=== PATIENT | male | born 1960 ===

== ENCOUNTER 2021-12-22 11:27 | Outpatient (REF) | payer OTHER, SELFPAY ==
[2021-12-22 14:05] LABS: MANUAL DIFF FLAG NO
[2021-12-22 14:18] LABS: Basophils Percent Auto 0.5 % (0-2); Eosinophils Absolute Auto 0.1 X10*3/uL (0.0-0.4); Eosinophils Percent Auto 1.5 % (0-4); Hemoglobin 13.5 g/dl (14.0-18.0); Imm Gran Abs Auto 0.02 X10*3/uL (0.00-0.03); Imm Gran Pct Auto 0.3 % (0.0-0.4); Lymphocytes Percent Auto 37.7 % (20-40); Mean Corpuscular HGB Conc 32.9 g/dl (31.0-36.0); Mean Corpuscular Hemoglobin 30.6 pg (27.0-33.0); Mean Platelet Volume 10.1 fL (9.4-12.4); Monocytes Absolute Auto 0.7 X10*3/uL (0.1-1.2); Monocytes Percent Auto 8.2 % (2-11); Neutrophils Absolute Auto 4.1 x10*3/uL (2.0-8.3); Neutrophils Percent Auto 51.8 % (45-73); Platelet Count 276 X10*3/uL (160-400); Red Blood Count 4.41 X10*6/uL (4.60-5.80); Red Cell Distribution Width 12.3 % (11.0-16.0); White Blood Count 7.9 X10*3/uL (4.8-10.8)
[2021-12-22 14:34] LABS: Creatinine Urine 268.63 mg/dL; Microalbum/Creatinine Ratio Ur 14.1 ug/mg cr
[2021-12-22 14:44] LABS: Estimated Average Glucose 192 mg/dL; Hemoglobin A1c % 8.3 %
[2021-12-22 14:48] LABS: Alanine Aminotransferase 21 U/L (0-40); Albumin Level 4.2 g/dL (3.5-5.0); Alkaline Phosphatase 116 U/L (39-117); Anion Gap 16 (12-20); Aspartate Amino Transferase 19 U/L (5-37); Bilirubin Total 0.3 mg/dL (0.0-1.0); Blood Urea Nitrogen 23 mg/dL (9-16); Calcium 9.4 mg/dL (8.4-10.2); Carbon Dioxide 21 mmol/L (22-29); Chloride 106 mmol/L (96-108); Cholesterol 112 mg/dL; Estimated Glomerular Filt Rate 43; Glucose Fasting 141 mg/dL (60-99); HDL Cholesterol 41 mg/dL; LDL Cholesterol Calculated 55 mg/dl; Potassium 4.8 mmol/L (3.3-5.1); Sodium 138 mmol/L (135-145); Triglycerides 82 mg/dL
[2021-12-22 14:56] LABS: TSH reflex Free T4 1.86 uIU/mL (0.32-4.0)
[2021-12-22 15:40] LABS: Vitamin B12 376 pg/mL (200-900)
[2021-12-27 15:36] LABS: Vitamin D 25-OH, D2 28 ng/mL; Vitamin D 25-OH, D3 39 ng/mL; Vitamin D 25-OH, Total 67 ng/mL (30-100)
== END 2021-12-22 11:28 | disposition home or self-care (01) ==
LOC: HO.HMGCLDS 11:27
PROVIDERS: PCP Internal Medicine; Visit Provider Internal Medicine
DX: E10.65 Type 1 diabetes mellitus with hyperglycemia (principal); E10.21 Type 1 diabetes mellitus with diabetic nephropathy; E10.42 Type 1 diabetes mellitus with diabetic polyneuropathy; E78.9 Disorder of lipoprotein metabolism, unspecified; E66.09 Other obesity due to excess calories; K21.9 Gastro-esophageal reflux disease without esophagitis; H40.9 Unspecified glaucoma; H26.9 Unspecified cataract; R20.2 Paresthesia of skin; M54.16 Radiculopathy, lumbar region; Z76.89 Persons encountering health services in other specified circumstances
CPT/HCPCS: 36415; 80053; 80061; 82043; 82306; 82607; 83036; 84443; 85025

== ENCOUNTER 2022-02-25 14:07 | Outpatient (REF) | payer OTHER, SELFPAY ==
--- NOTE | 2022-02-25 10:00 | EMG_ITS ---
Please see scanned EMG / Nerve Conduction Report. MTDD
== END 2022-02-25 14:08 | disposition home or self-care (01) ==
LOC: HO.NEURO 14:07
PROVIDERS: PCP Internal Medicine; Visit Provider Internal Medicine
DX: R20.2 Paresthesia of skin (principal)
CPT/HCPCS: 95886; 95913

== ENCOUNTER 2022-05-25 09:05 | Outpatient (REF) | payer OTHER, SELFPAY ==
[2022-05-25 11:35] LABS: MANUAL DIFF FLAG NO
[2022-05-25 12:00] LABS: Basophils Absolute Auto 0.1 X10*3/uL (0.0-0.2); Basophils Percent Auto 0.6 % (0-2); Eosinophils Absolute Auto 0.1 X10*3/uL (0.0-0.4); Eosinophils Percent Auto 1.5 % (0-4); Hemoglobin 13.4 g/dl (14.0-18.0); Imm Gran Abs Auto 0.02 X10*3/uL (0.00-0.03); Imm Gran Pct Auto 0.2 % (0.0-0.4); Lymphocytes Absolute Auto 3.2 X10*3/uL (1.2-4.9); Lymphocytes Percent Auto 39.3 % (20-40); Mean Corpuscular HGB Conc 33.5 g/dl (31.0-36.0); Mean Corpuscular Hemoglobin 30.4 pg (27.0-33.0); Mean Corpuscular Volume 90.7 fL (80.0-98.0); Mean Platelet Volume 10.5 fL (9.4-12.4); Monocytes Absolute Auto 0.7 X10*3/uL (0.1-1.2); Monocytes Percent Auto 8.6 % (2-11); Neutrophils Percent Auto 49.8 % (45-73); Platelet Count 257 X10*3/uL (160-400); Red Blood Count 4.41 X10*6/uL (4.60-5.80); Red Cell Distribution Width 12.7 % (11.0-16.0); White Blood Count 8.1 X10*3/uL (4.8-10.8)
[2022-05-25 12:08] LABS: Estimated Average Glucose 203 mg/dL; Hemoglobin A1c % 8.7 %
[2022-05-25 12:09] LABS: Alanine Aminotransferase 28 U/L (0-40); Albumin Level 3.7 g/dL (3.5-5.0); Alkaline Phosphatase 122 U/L (39-117); Anion Gap 11 (12-20); Aspartate Amino Transferase 22 U/L (5-37); Bilirubin Total 0.3 mg/dL (0.0-1.0); Blood Urea Nitrogen 22 mg/dL (9-16); Calcium 8.4 mg/dL (8.4-10.2); Carbon Dioxide 22 mmol/L (22-29); Chloride 110 mmol/L (96-108); Cholesterol 85 mg/dL; Estimated Glomerular Filt Rate 38; Glucose Fasting 183 mg/dL (60-99); HDL Cholesterol 30 mg/dL; LDL Cholesterol Calculated 42 mg/dl; Potassium 4.2 mmol/L (3.3-5.1); Sodium 139 mmol/L (135-145); Total Protein 6.2 g/dL (6.5-8.0); Triglycerides 65 mg/dL
[2022-05-25 12:28] LABS: TSH reflex Free T4 1.81 uIU/mL (0.32-4.0)
[2022-05-25 15:40] LABS: Creatinine Urine 312.85 mg/dL; Microalbum/Creatinine Ratio Ur 7.3 ug/mg cr
== END 2022-05-25 09:06 | disposition home or self-care (01) ==
LOC: HO.HMGCLDS 09:05
PROVIDERS: PCP Internal Medicine; Visit Provider Internal Medicine
DX: E11.21 Type 2 diabetes mellitus with diabetic nephropathy (principal); M54.16 Radiculopathy, lumbar region; E78.9 Disorder of lipoprotein metabolism, unspecified; E11.40 Type 2 diabetes mellitus with diabetic neuropathy, unspecified
CPT/HCPCS: 36415; 80053; 80061; 82043; 83036; 84443; 85025

== ENCOUNTER 2022-06-05 08:50 | Outpatient (REF) | payer OTHER, SELFPAY ==
--- NOTE | ~2022-06-05 | XR_ITS ---
EXAMINATION: XR LUMBOSACRAL SPINE CLINICAL INFORMATION: Reason for Exam M47.816 - Spondylosis without myelopathy or radiculopathy, lumbar region COMPARISON: None TECHNIQUE: 7 views of the lumbar spine FINDINGS: 5 nonrib-bearing lumbar-type vertebral bodies. Vertebral body heights are maintained. Alignment is maintained. No pars defects. No instability on flexion extension views. Minimal degenerative change with small anterior disc osteophyte complexes at L4-L5 and L5-S1. Disc space heights are maintained. Paravertebral soft tissues are unremarkable. XR/XR lumbar spine 6V w bending IMPRESSION: Minimal degenerative disc disease as detailed above.
== END 2022-06-05 08:51 | disposition home or self-care (01) ==
LOC: HO.XRAY 08:50
PROVIDERS: PCP Internal Medicine; Visit Provider Nurse Practitioner Family
DX: M47.816 Spondylosis without myelopathy or radiculopathy, lumbar region (principal); E11.40 Type 2 diabetes mellitus with diabetic neuropathy, unspecified; M25.511 Pain in right shoulder
CPT/HCPCS: 72114; 99202

== ENCOUNTER → 2022-07-16 11:45 | Outpatient (BNVA) | payer OTHER, SELFPAY | PROVIDERS: PCP Internal Medicine; Visit Provider Nurse Practitioner Family | DX: M54.16 Radiculopathy, lumbar region (principal); M47.816 Spondylosis without myelopathy or radiculopathy, lumbar region; E11.40 Type 2 diabetes mellitus with diabetic neuropathy, unspecified; E66.9 Obesity, unspecified; Z68.39 Body mass index [BMI] 39.0-39.9, adult | CPT/HCPCS: 99212 ==

== ENCOUNTER 2022-09-01 06:05 | Outpatient (REF) | payer OTHER, SELFPAY ==
--- NOTE | ~2022-09-01 | FL_ITS ---
EXAMINATION: XR FLUOROSCOPY WITH IMAGES CLINICAL INFORMATION: Spondylosis without myelopathy or radiculopathy, lumbar region. COMPARISON: None available. TECHNIQUE: Fluoroscopy Supervised By: Dr. Wil Valderrama. Fluoroscopy Time: 0.7 minutes. Cumulative Dose: 21.0 mGy. DAP: 5.73 Gycm2. Images: 7. FINDINGS: Images demonstrate needle placement and contrast injection adjacent to the bilateral lateral L3, L4 and L5 vertebrae FL/FL guidance in treatment room IMPRESSION: Fluoroscopy guidance for pain management procedure.
== END 2022-09-01 06:06 | disposition home or self-care (01) ==
LOC: CF 06:05
PROVIDERS: Visit Provider Anesthesiology
DX: M47.816 Spondylosis without myelopathy or radiculopathy, lumbar region (principal); E66.09 Other obesity due to excess calories
CPT/HCPCS: 64493; 64494

== ENCOUNTER 2022-09-08 11:15 | Outpatient (REF) | payer OTHER, SELFPAY ==
[2022-09-08 13:05] LABS: Estimated Average Glucose 203 mg/dL; Hemoglobin A1c % 8.7 %
[2022-09-08 13:59] LABS: Alanine Aminotransferase 26 U/L (0-40); Albumin Level 3.9 g/dL (3.5-5.0); Alkaline Phosphatase 128 U/L (39-117); Anion Gap 11 (12-20); Aspartate Amino Transferase 23 U/L (5-37); Bilirubin Total 0.3 mg/dL (0.0-1.0); Blood Urea Nitrogen 19 mg/dL (9-16); Calcium 9.5 mg/dL (8.4-10.2); Carbon Dioxide 23 mmol/L (22-29); Chloride 107 mmol/L (96-108); Estimated Glomerular Filt Rate 42; Glucose Random 136 mg/dL (60-115); Potassium 4.4 mmol/L (3.3-5.1); Sodium 137 mmol/L (135-145); Total Protein 7.2 g/dL (6.5-8.0)
[2022-09-08 14:16] LABS: TSH reflex Free T4 2.52 uIU/mL (0.32-4.0)
[2022-09-10 08:09] LABS: LDL Cholesterol Direct 37 mg/dL (<100)
== END 2022-09-08 11:16 | disposition home or self-care (01) ==
LOC: HO.LAB 11:15
PROVIDERS: PCP Internal Medicine; Visit Provider Nurse Practitioner Family
DX: M47.816 Spondylosis without myelopathy or radiculopathy, lumbar region (principal); M54.16 Radiculopathy, lumbar region; M53.3 Sacrococcygeal disorders, not elsewhere classified; E66.9 Obesity, unspecified; E78.9 Disorder of lipoprotein metabolism, unspecified; E11.40 Type 2 diabetes mellitus with diabetic neuropathy, unspecified; E11.21 Type 2 diabetes mellitus with diabetic nephropathy
CPT/HCPCS: 36415; 80053; 83036; 83721; 84443; 99212

== ENCOUNTER 2022-09-29 07:05 | Outpatient (REF) | payer OTHER, SELFPAY ==
--- NOTE | ~2022-09-29 | FL_ITS ---
EXAMINATION: XR FLUOROSCOPY WITH IMAGES CLINICAL INFORMATION: Sacral coccygeal disorder COMPARISON: None available. TECHNIQUE: Fluoroscopy Supervised By: Dr. Wil Valderrama. Fluoroscopy Time: 0.1 minutes. Cumulative Dose: 7.75 mGy. DAP: 0.134 Gycm2. Images: 1. FINDINGS: There is a needle and some contrast superimposed over the region of the SI joint FL/FL guidance in treatment room IMPRESSION: Imaging assistance provided during a fluoroscopic procedure
== END 2022-09-29 07:06 | disposition home or self-care (01) ==
LOC: CF 07:05
PROVIDERS: PCP Internal Medicine; Visit Provider Anesthesiology
DX: M47.816 Spondylosis without myelopathy or radiculopathy, lumbar region (principal); M53.3 Sacrococcygeal disorders, not elsewhere classified; M54.16 Radiculopathy, lumbar region; E66.9 Obesity, unspecified
CPT/HCPCS: 27096

== ENCOUNTER 2022-09-29 09:19 | Outpatient (AMB) | payer OTHER, SELFPAY ==
--- NOTE | 2022-09-29 09:30 | MHC.OFFVIS ---
Intake Vital Signs 09/29/22 09:31 09/29/22 11:11 Height 5 ft 7 in 5 ft 7 in Weight 245 lb 245 lb BMI 38.4 38.4 BP 112/66 100/88 Blood Pressure Location Rt brachial Rt brachial Position Sitting Sitting Respiration 19 17 Pulse 85 82 Pulse Source Pulse Oximeter Pulse Oximeter Pulse Oximetry (%) 99 98 Oxygen Delivery Method Room Air Room Air Comment Pre-op Post-op Intake Visit Reasons: LEFT DIAGNOSTIC SIJ INJECTION Allergies No Known Allergies Allergy (Verified 09/29/22 09:30) PFSH Surgical History History of shoulder surgery History of surgery on lower extremity Hx of cataract surgery Family History Father Diabetes Hypertension Cancer Mother Hypertension Diabetes Social History Housing: House Patient Tobacco Use Status: Never used Tobacco e-Cigarette/Vaping Use: Never Used Current occupational status: disabled Cognitive needs: No Hearing needs: No Vision needs: Yes Physical Exam Vital Signs: Last Vital Signs Pulse 82 09/29/22 11:11 Resp 17 09/29/22 11:11 BP 100/88 09/29/22 11:11 Pulse Ox 98 09/29/22 11:11 Oxygen Delivery Method Room Air 09/29/22 11:11 BMI result Body Mass Index 38.4 Results Reviewed Results Reviewed: 09/29/22 10:03 Lidocaine HCl 2 % MPF [Xylocaine 2 % MPF] 5 ml .R[facility]TE .[facility] Assessment & Plan Assessment & Plan (1) Lumbar spondylosis: Code(s): M47.816 - Spondylosis without myelopathy or radiculopathy, lumbar region (2) Left lumbar radiculitis: Code(s): M54.16 - Radiculopathy, lumbar region (3) Sacroiliac joint pain: Code(s): M53.3 - Sacrococcygeal disorders, not elsewhere classified Plan: Left diagnostic sacroiliac joint injection. Informed consent was explained thoroughly to the patient. All questions about benefits and risks for the procedure were answered. Patient came to the operating room and was positioned prone on the operating table with the pillow under the pelvis. Time out was performed delineating name and of the patient, allergies and the nature of the procedure. The lower back and buttocks of the patient were prepped with ChloraPrep prepped and draped with sterile utility towels. C-arm was brought over the operating field and sq picture of patient's pelvis was demonstrated on the screen. For the left joint tilting C-arm contralateral to the site of the joint the most posterior portion of the joints was superimposed with anterior silhouette of the joint. Skin was injected in the projection of the joint slightly medial to the location of the joint with 25 gauge 1/2 inch needle using local lidocaine 2% .After that 22 gauge 3 and 1/2 inch needle was driven to the right joint in tunnel vision fashion. When needle entered the joint capsule injection of the contrast was performed demonstrating intra-articular and minimally periarticular spread of the contrast. After that 4 cc. of ropivacaine 0.5% was injected into the joint. Upon completion of the injections the needle was removed Sterile dressing was applied. Upon completion of the injection patient was taken outside of the operating room to the recovery room where recovered uneventfully. (4) Obesity (BMI 30-39.9): Code(s): E66.9 - Obesity, unspecified Plan 1. Diagnostic Lumbar MBBs provided patient with 85% pain relief for 24 hours. Reviewed short and longer term treatments for lower back pain, including therapeutic injections, Sprint PNS trial or lumbar medial branch RFA. Pending A1C blood work, previous test was 8.7. Patient would like to address SIJ pain prior to further interventional treatments for axial back pain. 2. Schedule for Left Diagnostic SIJ injection with local and fluoroscopy. 3. Continue daily physical activity, HEP, adequate hydration, weight loss, good posture, sleep hygiene and diabetes control. All questions and concerns have been answered and patient agreed with the plan. Follow up after injections and sooner if needed. Anticoagulation: Patient not on anticoagulant Justification for interventional therapy: ? Patient with average pain > 6/10 ? Patient has exhausted conservative therapy, NSAIDs, physical therapy ? Patient continuing home exercise program The risks, consequences, alternatives, and benefits of various treatment options were discussed with the patient in great detail, including conservative management, injections and procedures. Orders: Orders FL guidance in treatment room Today M53.3 - Sacrococcygeal disorders, not elsewhere classified Coding Level of Care Code Procedure Only Diagnoses Lumbar spondylosis M47.816 Left lumbar radiculitis M54.16 Sacroiliac joint pain M53.3 Obesity (BMI 30-39.9) E66.9
[2022-09-29 09:31] VITALS: BP 112/66; PULSE 85; RESP 19; O2SAT 99; BMI 38.4
[2022-09-29 11:11] VITALS: BP 100/88; PULSE 82; RESP 17; O2SAT 98; BMI 38.4
== END 2022-09-29 10:54 | disposition home or self-care (01) ==
LOC: HO.PMCPRC 09:19
PROVIDERS: PCP Internal Medicine; Visit Provider Anesthesiology
DX: M53.3 Sacrococcygeal disorders, not elsewhere classified (principal)
CPT/HCPCS: 27096

== ENCOUNTER 2022-10-02 12:01 | Outpatient (AMB) | payer OTHER, SELFPAY ==
[2022-10-02 12:08] VITALS: BP 118/58; PULSE 85; O2SAT 97; BMI 38.7
--- NOTE | 2022-10-02 12:08 | A.OFFPC_ITS ---
Vital Signs 10/02/22 12:08 Height 5 ft 7 in Weight 247 lb 6 oz BMI 38.7 BP 118/58 L Blood Pressure Location Rt brachial Position Sitting Pulse 85 Pulse Source Pulse Oximeter Pulse Oximetry (%) 97 Oxygen Delivery Method Room Air Intake Visit Reasons: 3 month follow up Allergies No Known Allergies Allergy (Verified 09/29/22 09:30) Medication List - Last Reconciled 10/02/22 by Shawn Johnson MD amlodipine-benazepril 10-20 mg 1 cap PO DAILY aspirin (Adult Low Dose Aspirin) 81 mg PO DAILY atorvastatin 10 mg PO BEDTIME blood sugar diagnostic (FreeStyle Lite Strips) USE TO CHECK BLOOD SUGAR 4 TIMES DAILY: FASTING AND BEFORE MEALS cholecalciferol (vitamin D3) 25 mcg PO DAILY 90 days cholecalciferol (vitamin D3) 1,000 units PO DAILY 90 days dorzolamide-timolol 22.3-6.8 mg/mL 1 drp ophthalmic (eye) BID dulaglutide (Trulicity) 4.5 mg (0.5 mL) subcut QWEEK 90 days flash glucose sensor (FreeStyle Ye 2 Sensor kit) Use with sensor to monitor blood sugar TID and as needed for s/s hypo/hyperglycemia FreeStyle Ye 2 [place] (flash glucose scanning reader) Use with sensor to monitor blood sugar TID and as needed for s/s hypo/hyperglycemia NS FreeStyle Lite Meter (blood-glucose meter) Use to check blood sugar 4 times daily, fasting and AC NS gabapentin 300 mg PO TID PRN insulin aspart U-100 (Novolog FlexPen U-100 Insulin aspart) 15 units (0.15 mL) subcut TID 90 days lamotrigine 100 mg PO BID lancets (FreeStyle Lancets) Use to check blood sugar QID, fasting and AC Lantus Solostar U-100 Insulin (insulin glargine) subcutaneously 2 times a day; 50 units at night and 20 units in the morning 90 days NS levothyroxine 50 mcg PO DAILY lidocaine 5% leave on most painful area for up to 12 hrs topically daily; 30 days metformin ER 500 mg PO BID pantoprazole 20 mg PO DAILY Tobacco use date assessed: 10/02/22 Dental Screening Dental Screen Date: 10/02/22 Did you have a dental visit in the last 12 months?: No Did you have a dental problem in the last 6 months where you did not have access to dental care?: No Was dental information given to patient?: No HPI 3 month follow up HPI Details Patient is 62-year-old gentleman came in today for his regular follow- up appointment Patient is now seeing [facility] Patient says that they are not managing his blood pressure. His blood pressure has been running low lately I have reduce his medication to only amlodipine 10 mg and removed benzopril He is to give me a call in 2 weeks to update me on his blood pressure Insulin-dependent diabetes: Hemoglobin A1c is 8.7 labs were done 11 of September this year, he is taking Lantus to 54 the morning and 20 at night List pro 3 times a day after checking the sugar follow the sliding scale Continue Trulicity Continue to see [facility] for right shoulder pain Continue gabapentin 300 mg that is through PCP office Continue atorvastatin 10 mg for lipid control Continue levothyroxine 50 mcg for hypothyroidism And pantoprazole 20 mg for chronic GERD, symptoms stable. BMI is elevated need to lose weight Follow-up 3 months [facility] Surgical History History of shoulder surgery History of surgery on lower extremity Hx of cataract surgery Family History Father Diabetes Hypertension Cancer Mother Hypertension Diabetes Social History Housing: House Patient Tobacco Use Status: Never used Tobacco e-Cigarette/Vaping Use: Never Used Current occupational status: disabled Cognitive needs: No Hearing needs: No Vision needs: Yes Questionnaire AUDIT C Alcohol Use Questionnaire (AUDIT-C) 1. How often do you have a drink containing alcohol?: Never 3. How often do you have six or more drinks on one occasion?: Never Total Score: 0 Score Reviewed/Action Taken: Yes Review of Systems Const Denies chills and Denies fever(s) ENT Denies epistaxis and Denies nasal discharge Card Denies chest pain Resp Denies chest congestion, Denies cough and Denies hemoptysis GI Denies diarrhea and Denies nausea Skin/Breast Denies rash Neuro Reports no additional complaints Psych Reports no additional complaints Endo Reports no additional complaints Physical exam (Primary Care) Vital Signs: Last Vital Signs Pulse 85 10/02/22 12:08 BP 118/58 L 10/02/22 12:08 Pulse Ox 97 10/02/22 12:08 Oxygen Delivery Method Room Air 10/02/22 12:08 BMI result Body Mass Index 38.7 Tobacco/Smoking Status: Tobacco use Status Tobacco use date assessed 10/02/22 10/02/22 12:13 Patient Tobacco Use Status Never used Tobacco 10/02/22 12:12 e-Cigarette/Vaping Use Never Used 10/02/22 12:12 Const General: cooperative, comfortable and no acute distress Orientation/consciousness: patient oriented x3 HENMT Head: Yes normocephalic Eyes General: appearance normal, both eyes and all related structures Neck Neck: Yes supple Resp Effort & Inspection: normal respiratory effort, no cough and no stridor Cardio Rhythm: regular rhythm Heart sounds: S1 normal heart sound present and S2 normal heart sound present Skin General skin exam: turgor normal Neuro General: patient oriented x3, tone normal and moves all extremities Extrem Right lower extremity: no edema Left lower extremity: no edema Assessment and Plan Assessment & Plan (1) Insulin dependent type 1 diabetes mellitus: Code(s): E10.9 - Type 1 diabetes mellitus without complications (2) Diabetic nephropathy: Code(s): E11.21 - Type 2 diabetes mellitus with diabetic nephropathy (3) Diabetic neuropathy: Code(s): E11.40 - Type 2 diabetes mellitus with diabetic neuropathy, unspecified (4) Left lumbar radiculitis: Code(s): M54.16 - Radiculopathy, lumbar region (5) Lipid disorder: Code(s): E78.9 - Disorder of lipoprotein metabolism, unspecified (6) Obesity (BMI 30-39.9): Code(s): E66.9 - Obesity, unspecified Plan Patient is 62-year-old gentleman came in today for his regular follow-up appointment Patient is now seeing [facility] Patient says that they are not managing his blood pressure. His blood pressure has been running low lately I have reduce his medication to only amlodipine 10 mg and removed benzopril He is to give me a call in 2 weeks to update me on his blood pressure Insulin-dependent diabetes: Hemoglobin A1c is 8.7 labs were done 11 of September this year, he is taking Lantus to 54 the morning and 20 at night List pro 3 times a day after checking the sugar follow the sliding scale Continue Trulicity Continue to see [facility] for right shoulder pain Continue gabapentin 300 mg that is through PCP office Continue atorvastatin 10 mg for lipid control Continue levothyroxine 50 mcg for hypothyroidism And pantoprazole 20 mg for chronic GERD, symptoms stable. BMI is elevated need to lose weight Follow-up 3 months Medications: New amlodipine 10 mg PO DAILY 90 tabs 0RF Discontinued amlodipine-benazepril 10-20 mg Discontinued Reason: Doctor's Order 1 cap PO DAILY 90 caps 0RF metformin ER Discontinued Reason: Doctor's Order 500 mg PO BID 90 tabs 0RF Coding Level of Care Code Est Pt Level 4 (96307) Diagnoses Insulin dependent type 1 diabetes mellitus E10.9 Diabetic nephropathy E11.21 Diabetic neuropathy E11.40 Left lumbar radiculitis M54.16 Lipid disorder E78.9 Obesity (BMI 30-39.9) E66.9
== END 2022-10-02 12:33 | disposition home or self-care (01) ==
PROVIDERS: Visit Provider Internal Medicine
DX: E11.21 Type 2 diabetes mellitus with diabetic nephropathy (principal); E11.40 Type 2 diabetes mellitus with diabetic neuropathy, unspecified; M54.16 Radiculopathy, lumbar region; E78.9 Disorder of lipoprotein metabolism, unspecified; E66.9 Obesity, unspecified
CPT/HCPCS: 99214

== ENCOUNTER 2022-10-05 09:21 | Outpatient (AMB) | payer OTHER, SELFPAY ==
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
[2022-10-05 09:35] VITALS: BP 112/68; PULSE 88; RESP 18; O2SAT 98; BMI 38.4
== END 2022-10-05 10:06 | disposition home or self-care (01) ==
PROVIDERS: PCP Internal Medicine; Visit Provider Anesthesiology
DX: M53.3 Sacrococcygeal disorders, not elsewhere classified (principal); M47.816 Spondylosis without myelopathy or radiculopathy, lumbar region; M54.16 Radiculopathy, lumbar region; E66.9 Obesity, unspecified
CPT/HCPCS: 27096; 99214

== ENCOUNTER → 2022-10-05 09:21 | Outpatient (BNVA) | payer OTHER, SELFPAY | PROVIDERS: PCP Internal Medicine; Visit Provider Anesthesiology | DX: M47.26 Other spondylosis with radiculopathy, lumbar region (principal); M53.3 Sacrococcygeal disorders, not elsewhere classified; E11.40 Type 2 diabetes mellitus with diabetic neuropathy, unspecified; E66.9 Obesity, unspecified; Z68.38 Body mass index [BMI] 38.0-38.9, adult | CPT/HCPCS: 99212 ==

== ENCOUNTER 2022-11-04 09:51 | Outpatient (REF) | payer OTHER, SELFPAY ==
--- NOTE | ~2022-11-04 | XR_ITS ---
EXAMINATION: XR PELVIS CLINICAL INFORMATION: Sacrococcygeal pain COMPARISON: None available. TECHNIQUE: Frontal and lateral views of the pelvis and sacrococcygeal bones were acquired. FINDINGS: No fracture. Hip joint spaces are maintained. Alignment is anatomic. Sacroiliac joints and pubic symphysis are normal. No abnormal soft tissue calcifications. XR/XR pelvis 1-2V IMPRESSION: Unremarkable plain radiographs of the pelvis including the sacrum and coccyx.
== END 2022-11-04 09:52 | disposition home or self-care (01) ==
LOC: HO.XRAY 09:51
PROVIDERS: PCP Internal Medicine; Visit Provider Anesthesiology
DX: M53.3 Sacrococcygeal disorders, not elsewhere classified (principal)
CPT/HCPCS: 72170

== ENCOUNTER 2022-11-06 08:13 | Day surgery (SDC) | payer OTHER, SELFPAY ==
[2022-11-04 07:36] VITALS: BMI 38.4
--- NOTE | 2022-11-05 09:07 | HO.ANESPROP2 ---
HPI - Anesthesia Eval Consult details Narrative: 62yo M for Left Sacroiliac Joint Steroid Injection PMFSH Active Problems Active Problems: All Active Problems (Updated 11/04/22 @ 07:32 by Alejandra Lopez RN) Diabetes (Acute) Establishing care with new doctor, encounter for (Acute) Insulin dependent type 1 diabetes mellitus (Acute) Diabetic nephropathy (Acute) Diabetic neuropathy (Acute) Left lumbar radiculitis (Acute) Lipid disorder (Acute) Chronic GERD (Acute) Obesity due to excess calories (Acute) Glaucoma (Acute) Cataract (Acute) Paresthesia of both feet (Acute) Hospital discharge follow-up (Acute) Pre-op evaluation (Acute) Diabetic neuropathy (Acute) Lumbar radiculopathy (Acute) Lumbar spondylosis (Acute) Right shoulder pain (Acute) Obesity (BMI 30-39.9) (Acute) Sacroiliac joint pain (Acute) Sacroiliac joint dysfunction of left side (Acute) Past Medical History Medical History CKD (chronic kidney disease) Diabetes HTN (hypertension) Family History Family History Father Diabetes Hypertension Cancer Mother Hypertension Diabetes Surgical History Surgical History History of shoulder surgery History of surgery on lower extremity Hx of cataract surgery Social History Social History Housing: House Patient Tobacco Use Status: Never used Tobacco e-Cigarette/Vaping Use: Never Used Current occupational status: disabled Cognitive needs: No Hearing needs: No Vision needs: Yes Meds Allergies Allergy/AdvReac Type Severity Reaction Status Date / Time No Known Allergies Allergy Verified 10/05/22 09:35 Home Medications Medication Instructions Recorded Confirmed Last Taken Type aspirin 81 mg tablet,delayed 81 mg PO DAILY 01/07/22 10/02/22 Unknown History release (Adult Low Dose Aspirin) Exam Exam Date and Time: November 05, 2022 0907 Height,Weight and Vital Signs: Height 5 ft 7 in Weight 111.13 kg Pertinent Lab Results Pertinent Lab Results: Laboratory Tests 05/25/22 09/08/22 09:11 12:19 WBC 8.1 Hgb 13.4 L Hct 40.0 L Plt Count 257 Sodium 137 Potassium 4.4 Chloride 107 Carbon Dioxide 23 BUN 19 H Creatinine 1.67 H Assessment and Plan Assessment Anesthesia Assessment: Chart Reviewed
--- NOTE | ~2022-11-06 | FL_ITS ---
EXAMINATION: XR FLUOROSCOPY WITH IMAGES CLINICAL INFORMATION: Left SI joint injection. COMPARISON: None available. TECHNIQUE: Fluoroscopy Supervised By: Dr. Wil Valderrama. Fluoroscopy Time: 0.1 minute. Cumulative Dose: 11.0 mGy. DAP: 3.00 Gycm2. Images: 1. FINDINGS: Images demonstrate needle placement and contrast injection over the left sacroiliac joint. FL/FL guidance in OR IMPRESSION: Fluoroscopic guidance for left sacroiliac joint injection.
[2022-11-06 08:29] LABS: Glucose, Whole Blood 216 mg/dL (60-115)
[2022-11-06 08:40] VITALS: BP 109/66; PULSE 81; RESP 16; TEMP 36.2; O2SAT 96
--- NOTE | 2022-11-06 08:43 | MHC.SHP ---
Pre-Procedural Eval Section A Date of Service: 11/06/22 The patient is an INPATIENT: No Changes since office visit: Yes Patient answered all questions The History & Physical has been completed within 30 days and I have reviewed it.: No Section B Chief Complaint: Sacrococcygeal disorders, not elsewhere classifie Details of Present Illness: as above Relevant Family History (Specify if Yes): No Relevant Social History: None Present Medications: None Medical History: No relevant PMH History of Previous Operations: No relevant previous surgery Allergies: Allergies Allergy/AdvReac Type Severity Reaction Status Date / Time No Known Allergies Allergy Verified 10/05/22 09:35 Review of Systems Sugical H&P ROS: Negative: Cardiovascular, Respiratory, Neurological, Psychiatric, Hem-Onc, Allergic/Immunologic, Gastrointestinal, Genitourinary, Musculoskeletal, Integumentary, Endocrine and Eyes/Ears/Nose/Throat and Yes, Specify: Constitution (obesity) Exam Surgical H&P Exam: Normal: HEENT, Normal: Heart, Normal: Lungs, Normal: Extremities, Normal: Abdomen, Normal: Skin and Normal: Neurological Plan Diagnosis/Plan: Unchanged I have reviewed the history and physical and performed a pertinent physical examination on my patient. No changes have occurred unless specified. Time Spent With Patient Time: Total time managing care of this patient today ____ minutes.
--- NOTE | 2022-11-06 08:53 | P.CONAN_ITS ---
[facility] Active Problems Active Problems: All Active Problems (Updated 11/05/22 @ 09:11 by Estefani Ortega NP) Diabetes (Acute) Establishing care with new doctor, encounter for (Acute) Insulin dependent type 1 diabetes mellitus (Acute) Diabetic nephropathy (Acute) Diabetic neuropathy (Acute) Left lumbar radiculitis (Acute) Lipid disorder (Acute) Chronic GERD (Acute) Obesity due to excess calories (Acute) Glaucoma (Acute) Cataract (Acute) Paresthesia of both feet (Acute) Hospital discharge follow-up (Acute) Pre-op evaluation (Acute) Diabetic neuropathy (Acute) Lumbar radiculopathy (Acute) Lumbar spondylosis (Acute) Right shoulder pain (Acute) Obesity (BMI 30-39.9) (Acute) Sacroiliac joint pain (Acute) Sacroiliac joint dysfunction of left side (Acute) Past Medical History Medical History CKD (chronic kidney disease) Diabetes HTN (hypertension) Family History Family History Father Diabetes Hypertension Cancer Mother Hypertension Diabetes Family history of problems with anesthesia: No Surgical History Surgical History History of shoulder surgery History of surgery on lower extremity Hx of cataract surgery History of Problems with Anesthesia: Yes Social History Social History Housing: House Patient Tobacco Use Status: Never used Tobacco e-Cigarette/Vaping Use: Never Used Current occupational status: disabled Cognitive needs: No Hearing needs: No Vision needs: Yes Meds Allergies Allergy/AdvReac Type Severity Reaction Status Date / Time No Known Allergies Allergy Verified 10/05/22 09:35 Active Medications: Current Medications Lactated Ringer's (Lr) 1,000 mls @ 100 mls/hr IVCONT .Q10H [facility] Home Medications Medication Instructions Recorded Confirmed Last Taken Type aspirin 81 mg tablet,delayed 81 mg PO DAILY 01/07/22 10/02/22 Unknown History release (Adult Low Dose Aspirin) Exam Exam Date and Time: November 06, 2022 0853 Height,Weight and Vital Signs: Height 5 ft 7 in Weight 111.13 kg Last Vital Signs Temp 97.2 F 11/06/22 08:40 Pulse 81 11/06/22 08:40 Resp 16 11/06/22 08:40 BP 109/66 11/06/22 08:40 Pulse Ox 96 11/06/22 08:40 O2 Del Method Room Air 11/06/22 08:40 Pertinent Lab Results Pertinent Lab Results: Laboratory Tests 11/06/22 08:26 POC Glucose 216 H Airway Mallampati Class: III TM Dist: >3cm Neck ROM: Full Heart: RRR Lungs: CTA Assessment and Plan Assessment Anesthesia Assessment: Anesthesia Plan Discussed Final Anesthetic Review Family History of Problems with Anesthesia: No History of Problems with Anesthesia: Yes ASA Class: III Final Preanesthetic Review: Meds/Allgs Chart Reviewed, Consent Obtained/Reviewed and Anes Risks/Benef Reviewed Patient Risk: Low Anesthetic Plan Anesthetic Plan: MAC: Disposition: Standard PACU
[2022-11-06] MEDS: Lactated Ringers 1,000 ML 100 ML IVCONT (09:06)
--- NOTE | 2022-11-06 09:28 | P.BOP_ITS ---
Brief Operative Note Date of Service: 11/06/22 Pre-op diagnosis: sacroiliitis Post-op diagnosis: same Procedure: left SI joint injection Surgeon: Wil Valderrama MD Anesthesia: MAC Was an Pulling Machine Operator used for this Procedure?: No Estimated blood loss (mL): 0 Condition: stable Disposition: PACU
--- NOTE | 2022-11-06 09:28 | W.PM.OPN ---
Operative Note Operative Note Date of Service: 11/06/22 Narrative: Left sacroiliac joint injection. Informed consent was explained thoroughly to the patient.? All questions about benefits and risks for the procedure were answered. Patient came to the operating room and was positioned prone on the operating table with the pillow under the pelvis. ASA m-rs were applied and the patient was moderately sedated. Time out was performed delineating name and of the patient, allergies and the nature of the procedure. ?The lower back and buttocks of the patient were prepped with ChloraPrep prepped and draped with sterile utility towels.? C-arm was brought over the operating field and sq picture of patient's pelvis was demonstrated on the screen.? For the left joint tilting C-arm contralateral to the site of the joint the most posterior portion of the joints was superimposed with anterior silhouette of the joint.? Skin was injected in the projection of the joint slightly medial to the location of the joint with 25 gauge 1/2 inch needle using local lidocaine 2% .After that 22 gauge 3 and 1/2 inch needle was driven to the right joint in tunnel vision fashion.? When needle entered the joint capsule injection of the contrast was performed demonstrating intra-articular spread of the contrast.? After that 4 cc. of ropivacaine 0.5%? mixed with decadrone 4 mg was injected into the? joint.? Upon completion of the injections the needle was removed, Sterile dressing was applied.? Upon completion of the injection patient was taken outside of the operating room to the recovery room where recovered uneventfully.
[2022-11-06 09:32] VITALS: BP 150/81; PULSE 83; RESP 16; TEMP 36.9; O2SAT 99
--- NOTE | 2022-11-06 09:37 | HO.POSTANES ---
Post Anesthesia Evaluation Post Anesthesia Evaluation Date of Service: 11/06/22 Vital Signs: Vital Signs Temp Pulse Resp BP Pulse Ox O2 Del Method 11/06/22 08:40 97.2 F 81 16 109/66 96 Room Air Anesthesia: Monitored Mental Status: Awake Pain Control: Satisfactory Nausea/Vomiting: None Hydration: Adequate Anesthesia-Related Issues: No Anes. Related Issues
[2022-11-06 09:47] VITALS: BP 123/50; PULSE 88; RESP 20; TEMP 36.4; O2SAT 98
== END 2022-11-06 10:15 | disposition home or self-care (01) ==
PROVIDERS: PCP Internal Medicine; Visit Provider Anesthesiology
PROC: 3E0U33Z Introduction of Anti-inflammatory into Joints, Percutaneous Approach (ICD-10-PCS; CPT 27096; principal; 2022-11-06 09:00)
DX: M46.1 Sacroiliitis, not elsewhere classified (principal); M53.3 Sacrococcygeal disorders, not elsewhere classified; E66.9 Obesity, unspecified; Z68.38 Body mass index [BMI] 38.0-38.9, adult; E11.22 Type 2 diabetes mellitus with diabetic chronic kidney disease; I12.9 Hypertensive chronic kidney disease with stage 1 through stage 4 chronic kidney disease, or unspecified chronic kidney disease; N18.32 Chronic kidney disease, stage 3b; Z79.84 Long term (current) use of oral hypoglycemic drugs; Z79.85 Long-term (current) use of injectable non-insulin antidiabetic drugs; Z79.82 Long term (current) use of aspirin; Z79.899 Other long term (current) drug therapy
CPT/HCPCS: 27096; 82947; J2250; J2795; J3010; J3301; Q9967

== ENCOUNTER → 2022-11-06 08:13 | Outpatient (BNV) | payer OTHER, SELFPAY | PROVIDERS: PCP Internal Medicine; Visit Provider Anesthesiology | DX: M46.1 Sacroiliitis, not elsewhere classified (principal); M53.3 Sacrococcygeal disorders, not elsewhere classified | CPT/HCPCS: 27096 ==

== ENCOUNTER 2022-11-10 15:05 | Outpatient (REF) | payer OTHER, SELFPAY ==
--- NOTE | ~2022-11-10 | CT_ITS ---
EXAMINATION: CT LUMBAR SPINE WITHOUT CONTRAST CLINICAL INFORMATION: 62-year-old with SI joint pain, sacrococcygeal disorder, not elsewhere classified. COMPARISON: None available. TECHNIQUE: Volumetric CT imaging of the lumbar spine was done with multiplanar reformatted reconstructions. This CT examination was performed using dose optimization techniques as appropriate, variously including the following: *Automated exposure control *Adjustment of mA and/or kV according to patient size (this includes techniques or standardized protocols for targeted exams where dose is matched to indication/reason for exam; i.e. extremities or head) *Use of iterative reconstruction technique. DLP; 1043 mGy-cm. FINDINGS: Alignment: Mild upper lumbar levoscoliosis noted, slightly convex to the left at L1-L2. The lumbosacral spine is anatomically aligned in the sagittal plane. No spondylolisthesis or spondylolysis. Lumbosacral Junction: Normal. There are 5 [id number] lumbar-type vertebral bodies. Vertebral Bodies: Vertebral body heights are well-maintained. No acute fractures. Disc Spaces and Endplates: The intervertebral disc space heights are relatively well-maintained throughout the lumbar spine. There are mild degrees of anterolateral spondylosis primarily at L3-L4 and L4-L5. Endplates appear grossly intact. Note is made of a 1.5 cm sclerotic focus on the right side of the L2 vertebral body extending into the adjacent right L5 pedicle, likely a bone island statistically. This is noted on the x-rays from 06/05/2022 and appears unchanged consistent with a benign finding. Spinal Levels: L5-S1: Concentric disc bulging is noted with superimposed shallow right paramedian disc protrusion which may be contacting the S1 nerve root sleeve on the right without definite nerve root displacement. There is a moderate left-sided facet arthropathy noted. Prominent epidural fat is noted at this level with a relatively small, constricted appearance to the thecal sac without significant canal stenosis. Mild foraminal narrowing noted on the right without neural impingement. L4-L5: Concentric disc bulging is noted with prominent epidural fat and a relatively small thecal sac. Moderate facet arthropathy noted bilaterally with bilateral facet joint vacuum phenomenon and heterotopic bone formation along the posterior aspect of the right facet joint. Mild crowding of the subarticular zones is noted asymmetric to the left with minimal encroachment on the traversing left L5 nerve root. No central canal stenosis. Mild foraminal narrowing noted on the left without neural impingement. L3-L4: Mild disc bulging is noted, with a superimposed right-sided inferior foraminal disc protrusion which may be contacting the exiting right L3 nerve root sleeve. No significant facet arthrosis or spinal canal stenosis. Minor foraminal narrowing on the right. L2-L3: Small inferior foraminal disc protrusion noted on the right without neural impingement. Minor underlying disc bulging without facet arthrosis, canal or neuroforaminal stenosis. L1-L2: Normal annular contour. No facet arthrosis, canal or neuroforaminal stenosis. T12-L1: Normal annular contour. No facet arthrosis, canal or neuroforaminal stenosis. Paravertebral and Included Extraspinal Soft Tissues: The paravertebral soft tissues appear unremarkable. Nonspecific bilateral perinephric edema. Minimal nodularity of the adrenal glands noted, right more than left, without discrete mass lesion. Scattered small, nonenlarged retroperitoneal lymph nodes. The visualized SI joints are relatively symmetric and intact. There are mild bony productive changes along the anterior margins of the SI joints, right more than left, with associated degenerative sclerosis, with bridging osteophytosis or heterotopic ossification along the anterior margin of the right SI joint. Probable tiny bone island in the right iliac bone. CT/CT lumbar spine wo IV con IMPRESSION: 1. Mild upper lumbar levoscoliosis noted, with no evidence for spondylolisthesis or spondylolysis. 2. Mild multilevel spondylosis. 3. Disc bulging at L3-L4, L4-L5 and L5-S1 with superimposed right paramedian disc protrusion at L5-S1 and right foraminal disc protrusion at L3-L4 which may be contacting the traversing right S1 nerve root sleeve and exiting right L3 nerve root sleeve respectively. Disc bulging at L4-L5 with mild crowding of the subarticular zones asymmetric to the left at L4-L5 with minimal encroachment on the traversing left L5 nerve root. 4. Multilevel bilateral facet arthropathy, as described above, with mild foraminal narrowing on the right at L5-S1, on the left at L4-L5 and on the right at L3-L4. 5. Sclerotic focus in the right L2 vertebral body, unchanged from previous x-rays consistent with a benign bone island. 6. Bony productive changes along the anterior margins of the SI joints, right more than left, with probable degenerative sclerotic changes.
== END 2022-11-10 15:06 | disposition home or self-care (01) ==
LOC: HO.CT 15:05
PROVIDERS: PCP Internal Medicine; Visit Provider Anesthesiology
DX: M53.3 Sacrococcygeal disorders, not elsewhere classified (principal); M47.819 Spondylosis without myelopathy or radiculopathy, site unspecified; M51.36 Other intervertebral disc degeneration, lumbar region; M51.37 Other intervertebral disc degeneration, lumbosacral region
CPT/HCPCS: 72131

== ENCOUNTER 2022-12-09 11:17 | Outpatient (AMB) | payer OTHER, SELFPAY ==
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
[2022-12-09 11:30] VITALS: BP 118/62; PULSE 82; RESP 16; O2SAT 100; BMI 38.5
== END 2022-12-09 11:52 | disposition home or self-care (01) ==
PROVIDERS: PCP Internal Medicine; Visit Provider Anesthesiology
DX: M53.3 Sacrococcygeal disorders, not elsewhere classified (principal); M79.18 Myalgia, other site
CPT/HCPCS: 99214

== ENCOUNTER → 2022-12-09 11:17 | Outpatient (BNVA) | payer OTHER, SELFPAY | PROVIDERS: PCP Internal Medicine; Visit Provider Anesthesiology | DX: M53.3 Sacrococcygeal disorders, not elsewhere classified (principal); M79.18 Myalgia, other site | CPT/HCPCS: 99212 ==

== ENCOUNTER 2022-12-15 11:19 | Outpatient (AMB) | payer OTHER, SELFPAY ==
[2022-12-15 11:24] VITALS: BP 110/58; PULSE 96; O2SAT 97; BMI 38.6
--- NOTE | 2022-12-15 11:24 | MHC.PC.OV ---
Vital Signs 12/15/22 11:24 Height 5 ft 7 in Weight 246 lb 6 oz BMI 38.6 BP 110/58 L Blood Pressure Location Rt brachial Position Sitting Pulse 96 Pulse Source Pulse Oximeter Pulse Oximetry (%) 97 Oxygen Delivery Method Room Air Intake Visit Reasons: PE Allergies No Known Allergies Allergy (Verified 12/15/22 11:25) Medication List - Last Reconciled 12/15/22 by Shawn Johnson MD amlodipine-benazepril 10-20 mg 1 cap PO DAILY aspirin (Adult Low Dose Aspirin) 81 mg PO DAILY atorvastatin 10 mg PO BEDTIME blood sugar diagnostic (FreeStyle Lite Strips) USE TO CHECK BLOOD SUGAR 4 TIMES DAILY: FASTING AND BEFORE MEALS cholecalciferol (vitamin D3) 25 mcg PO DAILY 90 days cholecalciferol (vitamin D3) 1,000 units PO DAILY 90 days dorzolamide-timolol 22.3-6.8 mg/mL 1 drp ophthalmic (eye) BID dulaglutide (Trulicity) 4.5 mg (0.5 mL) subcut QWEEK 90 days flash glucose sensor (FreeStyle Ye 2 Sensor kit) Use with sensor to monitor blood sugar TID and as needed for s/s hypo/hyperglycemia FreeStyle Ye 2 [place] (flash glucose scanning reader) Use with sensor to monitor blood sugar TID and as needed for s/s hypo/hyperglycemia NS FreeStyle Lite Meter (blood-glucose meter) Use to check blood sugar 4 times daily, fasting and AC NS gabapentin 300 mg PO TID PRN insulin aspart U-100 (Novolog FlexPen U-100 Insulin aspart) 15 units (0.15 mL) subcut TID 90 days lamotrigine 100 mg PO BID lancets (FreeStyle Lancets) Use to check blood sugar QID, fasting and AC Lantus Solostar U-100 Insulin (insulin glargine) subcutaneously 2 times a day; 50 units at night and 20 units in the morning 90 days NS levothyroxine 50 mcg PO DAILY lidocaine 5% leave on most painful area for up to 12 hrs topically daily; 30 days pantoprazole 20 mg PO DAILY Tobacco use date assessed: 12/15/22 Dental Screening Dental Screen Date: 12/15/22 Did you have a dental visit in the last 12 months?: Yes Did you have a dental problem in the last 6 months where you did not have access to dental care?: No Was dental information given to patient?: Patient has dentist HPI PE HPI Details Patient is 62-year-old gentleman came in today for physical exam He has appointment with the Nephrology today, patient have diabetic nephropathy his last GFR was 42 and creatinine was 1.67 in August of this year. Patient has insulin-dependent diabetes mellitus: Today his hemoglobin A1c 7.8 He has also developed diabetic retinopathy, his eye appointment was recent. 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 He is requesting a referral to Urology for nocturia Patient have elevated alkaline phosphatase is also which is stable Due for colonoscopy, order placed. Medication list reviewed Patient have appointment with me in March he will do labs before visit. [facility] Medical History CKD (chronic kidney disease) Diabetes HTN (hypertension) Surgical History Hx of cataract surgery History of surgery on lower extremity History of shoulder surgery Family History Father Diabetes Hypertension Cancer Mother Hypertension Diabetes Social History Housing: House Patient Tobacco Use Status: Never used Tobacco e-Cigarette/Vaping Use: Never Used Current occupational status: disabled Cognitive needs: No Hearing needs: No Vision needs: Yes Questionnaire PHQ-9 Over the last 2 weeks, how often have you been bothered by any of the following problems? [id number] - PHQ-9 Billing: Patient declined-do not bill Source: Developed by Drs. Josiah Bailey, Gema Zimmerman, Brian Jo and colleagues, with an educational lovely from [employer]. Thrive Questionnaire Date Thrive assessed: 12/15/22 I am a: Patient What is your living situation today?: I have a steady place to live Within the past 12 months, did the food you bought not last and you didn't have the money to get more?: Sometimes True Within the past 12 months, did you worry whether your food would run out before you got money to buy more?: Sometimes True Do you have trouble paying for medicines?: No Do you have trouble getting transportation to medical appointments?: No Do you have trouble paying your heating and electricity bill?: No Do you have trouble taking care of your child, family member or friend?: No Do you have trouble with day-to-day activities such as bathing, preparing meals, shopping, managing finances, etc.?: Yes Are you currently unemployed and looking for a job?: No Are you interested in more education?: No AUDIT C Alcohol Use Questionnaire (AUDIT-C) 1. How often do you have a drink containing alcohol?: Never 3. How often do you have six or more drinks on one occasion?: Never Total Score: 0 Score Reviewed/Action Taken: Yes AMINATA-7 AMB Questionnaire AMINATA-7 Date AMINATA - 7 assessed: 12/15/22 Source: Developed by Drs. Josiah Bailey, Gema Zimmerman, Brian Jo and colleagues, with an educational lovely from [employer]. AMINATA-7 Assessment Billing AMINATA-7 Assessment Tool: pt declined-do not bill Review of Systems Const Denies chills, Denies fever(s) and Denies headache(s) ENT Denies headache(s), Denies nasal discharge, Denies nasal obstruction, Denies odynophagia and Denies sinus pain Card Denies chest pain at rest and Denies chest pain with activity Resp Denies cough and Denies hemoptysis GI Denies diarrhea, Denies odynophagia, Denies vomiting and Denies hematemesis Reports as per HPI Musc Denies abnormal gait Skin/Breast Reports as per HPI Neuro Denies Neuro-related abnormal movements, Denies Abnormal speech present, Denies abnormal gait and Denies headache(s) Psych Denies mood swings and Denies paranoia Endo Reports as per HPI Saurabh/Lymph Reports as per HPI Aller/Immun Reports as per HPI Physical exam (Primary Care) Vital Signs: Last Vital Signs Pulse 96 12/15/22 11:24 BP 110/58 L 12/15/22 11:24 Pulse Ox 97 12/15/22 11:24 Oxygen Delivery Method Room Air 12/15/22 11:24 BMI result Body Mass Index 38.6 Tobacco/Smoking Status: Tobacco use Status Tobacco use date assessed 12/15/22 12/15/22 11:26 Patient Tobacco Use Status Never used Tobacco 12/15/22 11:26 e-Cigarette/Vaping Use Never Used 12/15/22 11:26 Thrive Assessment: Date of Thrive Assessment Date Thrive assessed 12/15/22 12/15/22 11:56 Const General: cooperative, comfortable and no acute distress Orientation/consciousness: patient oriented x3 HENMT Head: Yes normocephalic and Yes atraumatic Eyes General: appearance normal, both eyes and all related structures Pupils: Equal, round and reactive pupils present EOM: EOMs intact bilaterally Neck Neck: Yes supple and No lymphadenopathy Thyroid: Thyroid normal Lymphatic: no lymphadenopathy noted Resp Effort & Inspection: normal respiratory effort and able to speak in complete sentences Auscultation: clear to auscultation bilaterally Cardio Heart sounds: S1 normal heart sound present and S2 normal heart sound present GI Palpation (GI): Soft to palpation and nontender Auscultation: normal bowel sounds General: Yes no CVA tenderness Back/Spine/Pelvis Back: no CVA tenderness Skin General skin exam: elasticity normal and turgor normal Neuro General: patient oriented x3 and gait normal Cranial nerves: Yes Equal, round and reactive pupils present Speech: No Abnormal speech present Coordination: Romberg test negative Extrem Other: Left ankle with mild pitting edema General: Yes normal exam except as noted Results AMB Hemoglobin A1c AMB Hemoglobin A1c 7.8 % Last Edit by Janeth Carbajal CMA on 12/15/22 11:49 Results Reviewed Results Reviewed: Laboratory Last Values Hgb A1c (Clinic) 7.8 % (4.0-6.0) H 12/15/22 11:43 Assessment and Plan Assessment & Plan (1) Encounter for general adult medical examination with abnormal findings: Code(s): Z00.01 - Encounter for general adult medical examination with abnormal findings (2) Insulin dependent type 1 diabetes mellitus: Code(s): E10.9 - Type 1 diabetes mellitus without complications Qualifiers: Diabetes mellitus complication detail: with diabetic retinopathy Diabetes mellitus complication status: with ophthalmic complications Diabetic retinopathy severity: with proliferative retinopathy Laterality: bilateral Proliferative retinopathy type: stable (3) Diabetic nephropathy: Code(s): E11.21 - Type 2 diabetes mellitus with diabetic nephropathy Qualifiers: Diabetes mellitus type: type 1 Qualified Code(s): E10.21 - Type 1 diabetes mellitus with diabetic nephropathy (4) Diabetic neuropathy: Code(s): E11.40 - Type 2 diabetes mellitus with diabetic neuropathy, unspecified Qualifiers: Diabetes mellitus complication detail: diabetic polyneuropathy Diabetes mellitus type: type 1 Qualified Code(s): E10.42 - Type 1 diabetes mellitus with diabetic polyneuropathy (5) Lipid disorder: Code(s): E78.9 - Disorder of lipoprotein metabolism, unspecified (6) Chronic GERD: Code(s): K21.9 - Gastro-esophageal reflux disease without esophagitis (7) Obesity due to excess calories: Code(s): E66.09 - Other obesity due to excess calories Qualifiers: Body mass index: BMI 38.0-38.9 Obesity classification: adult class 2 (BMI 35 - 39.9) Serious obesity comorbidity presence: with serious comorbidity Qualified Code(s): E66.01 - Morbid (severe) obesity due to excess calories; Z68.38 - Body mass index [BMI] 38.0-38.9, adult (8) Sacroiliac joint pain: Code(s): M53.3 - Sacrococcygeal disorders, not elsewhere classified (9) Lumbar spondylosis: Code(s): M47.816 - Spondylosis without myelopathy or radiculopathy, lumbar region (10) Colon cancer screening: Code(s): Z12.11 - Encounter for screening for malignant neoplasm of colon (11) Frequency of micturition: Code(s): R35.0 - Frequency of micturition Plan Patient is 62-year-old gentleman came in today for physical exam He has appointment with the Nephrology today, patient have diabetic nephropathy his last GFR was 42 and creatinine was 1.67 in August of this year. Patient has insulin-dependent diabetes mellitus: Today his hemoglobin A1c 7.8 He has also developed diabetic retinopathy, his eye appointment was recent. 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 He is requesting a referral to Urology for nocturia Patient have elevated alkaline phosphatase is also which is stable Due for colonoscopy, order placed. Back pain is stable patient is on gabapentin through Pain Management Medication list reviewed Patient have appointment with me in March he will do labs before visit. Orders: Orders Comprehensive Met. Panel Today E10.9 - Type 1 diabetes mellitus without complications, E11.21 - Type 2 diabetes mellitus with diabetic nephropathy, E11.40 - Type 2 diabetes mellitus with diabetic neuropathy, unspecified, E66.09 - Other obesity due to excess calories, E78.9 - Disorder of lipoprotein metabolism, unspecified, K21.9 - Gastro-esophageal reflux disease without esophagitis, M47.816 - Spondylosis without myelopathy or radiculopathy, lumbar region, M53.3 - Sacrococcygeal disorders, not elsewhere classified, Z00.01 - Encounter for general adult medical examination with abnormal findings LDL Cholesterol Direct Today E10.9 - Type 1 diabetes mellitus without complications, E11.21 - Type 2 diabetes mellitus with diabetic nephropathy, E11.40 - Type 2 diabetes mellitus with diabetic neuropathy, unspecified, E66.09 - Other obesity due to excess calories, E78.9 - Disorder of lipoprotein metabolism, unspecified, K21.9 - Gastro-esophageal reflux disease without esophagitis, M47.816 - Spondylosis without myelopathy or radiculopathy, lumbar region, M53.3 - Sacrococcygeal disorders, not elsewhere classified, Z00.01 - Encounter for general adult medical examination with abnormal findings TSH reflex Free T4 Today E10.9 - Type 1 diabetes mellitus without complications, E11.21 - Type 2 diabetes mellitus with diabetic nephropathy, E11.40 - Type 2 diabetes mellitus with diabetic neuropathy, unspecified, E66.09 - Other obesity due to excess calories, E78.9 - Disorder of lipoprotein metabolism, unspecified, K21.9 - Gastro-esophageal reflux disease without esophagitis, M47.816 - Spondylosis without myelopathy or radiculopathy, lumbar region, M53.3 - Sacrococcygeal disorders, not elsewhere classified, Z00.01 - Encounter for general adult medical examination with abnormal findings AMB Hemoglobin A1c Today E11.21 - Type 2 diabetes mellitus with diabetic nephropathy Hemoglobin A1c Today E10.9 - Type 1 diabetes mellitus without complications, E11.21 - Type 2 diabetes mellitus with diabetic nephropathy, E11.40 - Type 2 diabetes mellitus with diabetic neuropathy, unspecified, E66.09 - Other obesity due to excess calories, E78.9 - Disorder of lipoprotein metabolism, unspecified, K21.9 - Gastro-esophageal reflux disease without esophagitis, M47.816 - Spondylosis without myelopathy or radiculopathy, lumbar region, M53.3 - Sacrococcygeal disorders, not elsewhere classified, Z00.01 - Encounter for general adult medical examination with abnormal findings Microalbumin, Random (w Creat) Today E10.9 - Type 1 diabetes mellitus without complications, E11.21 - Type 2 diabetes mellitus with diabetic nephropathy, E11.40 - Type 2 diabetes mellitus with diabetic neuropathy, unspecified, E66.09 - Other obesity due to excess calories, E78.9 - Disorder of lipoprotein metabolism, unspecified, K21.9 - Gastro-esophageal reflux disease without esophagitis, M47.816 - Spondylosis without myelopathy or radiculopathy, lumbar region, M53.3 - Sacrococcygeal disorders, not elsewhere classified, Z00.01 - Encounter for general adult medical examination with abnormal findings Referrals Gastroenterology Referral Z12.11 - Encounter for screening for malignant neoplasm of colon Urology Referral R35.0 - Frequency of micturition Medications: New [insulin pen needles] 4 times a day 100 ea 2RF E10.9 - Type 1 diabetes mellitus without complications Refilled lancets (FreeStyle Lancets) Use to check blood sugar QID, fasting and AC 100 ea 2RF E11.9 - Type 2 diabetes mellitus without complications Coding Level of Care Code Est Pt [facility] Care 40-64y([id number]) Diagnoses Encounter for general adult medical examination with abnormal findings Z00.01 Insulin dependent type 1 diabetes mellitus E10.9 Diabetes mellitus complication detail: with diabetic retinopathy Diabetes mellitus complication status: with ophthalmic complications Diabetic retinopathy severity: with proliferative retinopathy Laterality: bilateral Proliferative retinopathy type: stable 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 E10.21 Diabetes mellitus type: type 1 Diabetic polyneuropathy associated with type 1 diabetes mellitus E10.42 Diabetes mellitus complication detail: diabetic polyneuropathy Diabetes mellitus type: type 1 Lipid disorder E78.9 Chronic GERD K21.9 Class 2 severe obesity due to excess calories with serious comorbidity and body mass index (BMI) of 38.0 to 38.9 in adult E66.01; Z68.38 Body mass index: BMI 38.0-38.9 Obesity classification: adult class 2 (BMI 35 - 39.9) Serious obesity comorbidity presence: with serious comorbidity Sacroiliac joint pain M53.3 Lumbar spondylosis M47.816 Colon cancer screening Z12.11 Frequency of micturition R35.0
== END 2022-12-15 11:55 | disposition home or self-care (01) ==
PROVIDERS: Visit Provider Internal Medicine
DX: E11.21 Type 2 diabetes mellitus with diabetic nephropathy (principal)
CPT/HCPCS: 83036; 99396

== ENCOUNTER 2023-01-20 10:41 | Outpatient (AMB) | payer OTHER, SELFPAY ==
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
[2023-01-20 11:00] VITALS: PULSE 85; RESP 12; O2SAT 98; BMI 38.7
== END 2023-01-20 11:40 | disposition home or self-care (01) ==
PROVIDERS: PCP Internal Medicine; Visit Provider Anesthesiology
DX: M53.3 Sacrococcygeal disorders, not elsewhere classified (principal); M79.18 Myalgia, other site; M47.816 Spondylosis without myelopathy or radiculopathy, lumbar region
CPT/HCPCS: 99215

== ENCOUNTER → 2023-01-20 10:41 | Outpatient (BNVA) | payer OTHER, SELFPAY | PROVIDERS: PCP Internal Medicine; Visit Provider Anesthesiology | DX: M53.3 Sacrococcygeal disorders, not elsewhere classified (principal); M79.18 Myalgia, other site; M47.816 Spondylosis without myelopathy or radiculopathy, lumbar region | CPT/HCPCS: 99212 ==

== ENCOUNTER 2023-01-29 14:49 | Outpatient (AMB) | payer OTHER, SELFPAY ==
--- NOTE | 2023-01-29 15:06 | MHC.OFFVIS ---
Intake Vital Signs 01/29/23 15:36 BP 128/70 Respiration 18 Pulse 98 Intake Visit Reasons: Frequency of micturition Intake Note: NEW Patient presents today to established treatment for Frequency of Micturition: Meds- None Allergies to Antibiotic- No Known Allergies Blood Thinner- Aspirin Varnish Melter Helper Required: No Accompanied by: Self / Same As Patient Allergies No Known Allergies Allergy (Verified 01/29/23 15:26) HPI HPI Comments History of Present Illness Details 62-year-old male who presents today to the office for an evaluation of frequency of micturition. 01/29/2023 -- He was referred by his primary care physician with a concern regarding urinary frequency and nocturia. His past medical history, significant for insulin dependent diabetes mellitus, diabetic retinopathy and chronic kidney disease followed by nephrology. He complained of dizziness during evaluation, stated he did not eat yet today but had a coffee in the morning. After several minutes he stated he felt better. A blood pressure was checked that was 127/70 mmHg. He is not sure of FH of cancer. He wakes two to 3 times during night for micturition that he states is not bothersome. He denies hematuria or irritative voiding symptoms. Evaluation today?UA-- 01/29/2023 ? Bladder scan PVR: 13 ml. Plan Ultrasound Retroperitoneum prior was ordered. PSA FU in 10 weeks [facility] Medical History CKD (chronic kidney disease) Diabetes HTN (hypertension) Surgical History Hx of cataract surgery History of surgery on lower extremity History of shoulder surgery Family History Father Diabetes Hypertension Cancer Mother Hypertension Diabetes Social History Housing: House Patient Tobacco Use Status: Never used Tobacco e-Cigarette/Vaping Use: Never Used Current occupational status: disabled Cognitive needs: No Hearing needs: No Vision needs: Yes Review of Systems Const All systems reviewed & are unremarkable except as noted in HPI and below Reports no additional complaints Eyes Reports no additional complaints ENT Reports no additional complaints Card Reports no additional complaints Resp Reports no additional complaints GI Reports no additional complaints Musc Reports no additional complaints Skin/Breast Reports system reviewed and no additional complaints, except as documented Neuro Reports no additional complaints Psych Reports no additional complaints Endo Reports no additional complaints Saurabh/Lymph Reports no additional complaints Aller/Immun Reports no additional complaints Physical Exam Vital Signs: Last Vital Signs Pulse 98 01/29/23 15:36 Resp 18 01/29/23 15:36 BP 128/70 01/29/23 15:36 Const General: healthy appearing, no acute distress and well developed Nutritional Appearance: overweight Orientation/consciousness: patient oriented x3 HEENT Head: Yes normocephalic and Yes atraumatic Eyes Conjunctivae: conjunctivae normal Neck Neck: Yes normal visual inspection Chest Chest palpation & inspection: normal inspection of the chest Resp Effort & Inspection: normal respiratory effort Cardio Rate: regular rate GI Inspection: Yes normal to inspection Palpation (GI): Soft to palpation Skin General skin exam: no rashes or lesions noted Neuro General: patient oriented x3 Extrem General: Yes no pedal edema Psych Appearance: grossly normal Affect: normal affect Office Procedures Post Void Residual Post Residual Void Post Void Residual (PVR): 13 [id number]-[id number] Void Residual by ultrasound Results AMB Urinalysis, Automated UA Leukoctes 0 Bradley/uL Last Edit by [facility] on 01/29/23 16:27 UA Nitrite Negative Last Edit by [facility] on 01/29/23 16:27 UA Urobilinogen 0.2 mg/dL Last Edit by [facility] on 01/29/23 16:27 UA Protein 15 mg/dL Last Edit by [facility] on 01/29/23 16:27 UA pH 5.5 Last Edit by [facility] on 01/29/23 16:27 UA Blood 0 Alexandro/uL Last Edit by [facility] on 01/29/23 16:27 UA Specific [place] 1.030 Last Edit by [facility] on 01/29/23 16:27 UA Ketone Negative Last Edit by [facility] on 01/29/23 16:27 UA Bilirubin 1 mg/dL Last Edit by [facility] on 01/29/23 16:27 1+ Carmela Cardenas 01/29/23 16:27 UA Glucose 0 mg/dL Last Edit by MAYURI Esparza on 01/29/23 16:27 Results Reviewed Results Reviewed: Laboratory Last Values Urine pH (Auto) 5.5 01/29/23 15:00 Specific [place] (Auto) 1.030 01/29/23 15:00 Urine Protein (Auto) 15 mg/dL 01/29/23 15:00 Glucose (UA)(Auto) 0 mg/dL 01/29/23 15:00 Urine Ketones (Auto) Negative 01/29/23 15:00 Urine Blood (Auto) 0 Alexandro/uL 01/29/23 15:00 Urine Nitrite (Auto) Negative 01/29/23 15:00 Urine Bilirubin (Auto) 1 mg/dL 01/29/23 15:00 Urine Urobilinogen (Auto) 0.2 mg/dL 01/29/23 15:00 Leukocyte Esterase (Auto) 0 Bradley/uL 01/29/23 15:00 Assessment & Plan Assessment & Plan (1) Frequency of micturition: Code(s): R35.0 - Frequency of micturition (2) Screening PSA (prostate specific antigen): Code(s): Z12.5 - Encounter for screening for malignant neoplasm of prostate (3) Nocturia: Code(s): R35.1 - Nocturia (4) BPH (benign prostatic hyperplasia): Code(s): N40.0 - Benign prostatic hyperplasia without lower urinary tract symptoms Plan Ultrasound Retroperitoneum prior was ordered. FU in 10 weeks PSA Orders: Orders AMB Urinalysis Automated 01/29/23 Z13.9 - Encounter for screening, unspecified US retroperitoneal comp 01/29/23 R35.0 - Frequency of micturition PSA,Total (Free>4and<10) 01/29/23 N40.1 - Benign prostatic hyperplasia with lower urinary tract symptoms, R35.1 - Nocturia AMB Post Void Residual by ultrasound 01/29/23 R35.0 - Frequency of micturition Patient Instructions: The patient had an opportunity to ask questions regarding treatment plan. All questions were answered. Imaging, Laboratory studies and physical exam results were discussed and reviewed in detail. No major barriers to understanding were identified. The patient expressed understanding and agreement with the above treatment plan. The patient is aware they should contact our office by phone for worsening of their current condition or the appearance of new symptoms. Compliance is encouraged with any medications and followup testing that is ordered. It is a privilege to be allowed the opportunity to participate in the urologic care of your patient. If you have any questions or concerns regarding treatment for the above conditions please do not hesitate to contact me. The office telephone contact is [phone]. This note is constructed in part using voice recognition software. While every effort has been made to ensure accuracy extractor tender raw stock errors may have been included. Yours sincerely, Donavon Cobian MD Coding Level of Care Code New Pt Level 4 (99964) Diagnoses Frequency of micturition R35.0 Screening PSA (prostate specific antigen) Z12.5 Nocturia R35.1 BPH (benign prostatic hyperplasia) N40.0 CPT Codes Post Residual Void - PVR CPT Code: 33048-Feas Void Residual by ultrasound ([id number])
[2023-01-29 15:36] VITALS: BP 128/70; PULSE 98; RESP 18
== END 2023-01-29 15:53 | disposition home or self-care (01) ==
PROVIDERS: PCP Anesthesiology; Visit Provider Urology
DX: R35.0 Frequency of micturition (principal); Z12.5 Encounter for screening for malignant neoplasm of prostate; R35.1 Nocturia; N40.0 Benign prostatic hyperplasia without lower urinary tract symptoms
CPT/HCPCS: 99204

== ENCOUNTER → 2023-01-29 14:49 | Outpatient (BNVA) | payer OTHER, SELFPAY | PROVIDERS: PCP Anesthesiology; Visit Provider Urology | DX: Z12.5 Encounter for screening for malignant neoplasm of prostate (principal); N40.0 Benign prostatic hyperplasia without lower urinary tract symptoms; R35.0 Frequency of micturition; R35.1 Nocturia | CPT/HCPCS: 51798; 81003; 99202 ==

== ENCOUNTER 2023-02-03 08:47 | Outpatient (AMB) | payer OTHER, SELFPAY ==
--- NOTE | 2023-02-03 09:00 | A.OFFVIS_ITS ---
Intake Vital Signs 02/03/23 09:01 Height 5 ft 7 in Weight 248 lb BMI 38.8 BP 87/53 L Blood Pressure Location Lt brachial Position Sitting Pulse 96 Intake Visit Reasons: Colonoscopy Screening Intake Note: Patient new consult for pre colonoscopy screening, and abdominal pain. Patient cc: abdominal pain with bloating, nauseas, acid reflex and chronic constipation. 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 Required: No Accompanied by: Self / Same As Patient Allergies No Known Allergies Allergy (Verified 02/03/23 08:59) Medication List - Last Reconciled 02/03/23 by Barb Anaya PA-C amlodipine-benazepril 10-20 mg 1 cap PO DAILY aspirin (Adult Low Dose Aspirin) 81 mg PO DAILY atorvastatin 10 mg PO BEDTIME blood sugar diagnostic (FreeStyle Lite Strips) USE TO CHECK BLOOD SUGAR 3 TIMES DAILY: FASTING AND BEFORE MEALS cholecalciferol (vitamin D3) 25 mcg PO DAILY 90 days dorzolamide-timolol 22.3-6.8 mg/mL 1 drp ophthalmic (eye) BID dulaglutide (Trulicity) 4.5 mg (0.5 mL) subcut QWEEK 90 days flash glucose sensor (FreeStyle Ye 2 Sensor kit) Use with sensor to monitor blood sugar TID and as needed for s/s hypo/hyperglycemia FreeStyle Ye 2 [place] (flash glucose scanning reader) Use with sensor to monitor blood sugar TID and as needed for s/s hypo/hyperglycemia NS FreeStyle Lite Meter (blood-glucose meter) Use to check blood sugar 4 times daily, fasting and AC NS gabapentin 300 mg PO TID PRN insulin aspart U-100 (Novolog FlexPen U-100 Insulin aspart) 15 units (0.15 mL) subcut TID 90 days [insulin pen needles 4 times a day] lamotrigine 100 mg PO BID lancets (FreeStyle Lancets) Use to check blood sugar QID, fasting and AC Lantus Solostar U-100 Insulin (insulin glargine) subcutaneously 2 times a day; 50 units at night and 20 units in the morning 90 days NS levothyroxine 50 mcg PO DAILY lidocaine 5% leave on most painful area for up to 12 hrs topically daily; 30 days pantoprazole 20 mg PO DAILY HPI HPI Comments History of Present Illness Details A 62 y/o male referred for colonoscopy- he says he was to have it- but pandemic He says his BP fluctuates- at times omits medications-monitors at home-( his daughter) Blood sugars up and down -he is trying to make dietary changes Bowels are normal-no issues has BM daily Appetite good- nausea, in the e a.m. ppi for acid- breakthrough/water brash No vomiting, abdominal pain, fever or chills PFSH Medical History CKD (chronic kidney disease) Diabetes HTN (hypertension) Surgical History Hx of cataract surgery History of surgery on lower extremity History of shoulder surgery Family History Father Diabetes Hypertension Cancer Mother Hypertension Diabetes Social History Housing: House Patient Tobacco Use Status: Never used Tobacco e-Cigarette/Vaping Use: Never Used Current occupational status: disabled Cognitive needs: No Hearing needs: No Vision needs: Yes Review of Systems Const All systems reviewed & are unremarkable except as noted in HPI and below Denies chills and Denies fever(s) Eyes Denies blurry vision Card Denies chest pain and Denies dyspnea Resp Denies dyspnea GI Denies abdominal pain, Denies change in bowel habits, Reports heartburn, Reports nausea and Denies vomiting Physical Exam Vital Signs: Last Vital Signs Pulse 96 02/03/23 09:01 BP 87/53 L 02/03/23 09:01 BMI result Body Mass Index 38.8 Const General: cooperative and comfortable Orientation/consciousness: patient oriented x3 Limitations: no limitations Eyes Sclerae: sclerae normal Resp Effort & Inspection: normal respiratory effort and able to speak in complete sentences Auscultation: clear to auscultation bilaterally, no rales, no rhonchi and no wheezes Cardio Rhythm: regular rhythm Heart sounds: S1 normal heart sound present and S2 normal heart sound present GI Inspection: Yes obesity Palpation (GI): Soft to palpation and nontender Auscultation: normal bowel sounds Neuro General: patient oriented x3 Extrem General: Yes full ROM Psych Appearance: well kempt Mental Status: mental status grossly normal Speech and movement: Normal speech and movement present Affect: normal affect Attitude: cooperative Thought process: Normal thought process present Thought content: Normal thought content present Results Reviewed Results Reviewed: labs- mild elevated alkphos Assessment & Plan Assessment & Plan (1) Chronic GERD: Comment: Dietary modifications, opportunity for improvement Code(s): K21.9 - Gastro-esophageal reflux disease without esophagitis Plan: Reinforce dietary modification Reflux precautions review Continue PPI EGD-[facility]'s surveillance, rule out PUD, nonulcer dyspepsia, esophagitis other endoscopic findings to account for symptoms (2) Colon cancer screening: Code(s): Z12.11 - Encounter for screening for malignant neoplasm of colon Plan: Screening colonoscopy (3) Diabetes: Code(s): E11.9 - Type 2 diabetes mellitus without complications Plan: Reviewed medication Plan Discussed DM meds- must omit Trulicity dose- 1 wk prior As well 1/2 dose pm insulin pauly before NO DM meds morning of EGD/ colonoscopy- MG prep- Please reenforced details Orders: Orders EGD/[facility] [place] Combo - GI Use Only Today E11.9 - Type 2 diabetes mellitus without complications, K21.9 - Gastro-esophageal reflux disease without esophagitis, Z12.11 - Encounter for screening for malignant neoplasm of colon Medications: New bisacodyl (Dulcolax (bisacodyl)) Day before procedure, prep day Take 4 tablets by mouth upon awakening followed by large glass of water 20 mg (4 x 5 mg) PO ONCE 1 day 4 tabs 0RF colonoscopy prep Z12.11 - Encounter for screening for malignant neoplasm of colon polyethylene glycol 3350 (Miralax) Take as directed by mouth the day before your procedure. 238 grams PO ONCE 1 day PRN 238 grams 0RF laxative effect Patient Instructions: Very pleasant diabetic 62-year-old Gent referred for index screening colonoscopy, presents with persistent acid reflux Discussed DM meds- must omit Trulicity dose- 1 wk prior As well 1/2 dose pm insulin pauly before NO DM meds morning of EGD/ colonoscopy- MG prep- reenforced details Encouraged to call with questions or concerns Coding Level of Care Code New Pt Level 4 (75113) Diagnoses Chronic GERD K21.9 Colon cancer screening Z12.11 Diabetes E11.9 Time Spent (min) 30
[2023-02-03 09:01] VITALS: BP 87/53; PULSE 96; BMI 38.8
== END 2023-02-03 09:56 | disposition home or self-care (01) ==
PROVIDERS: PCP Anesthesiology; Visit Provider Physician Assistant
DX: K21.9 Gastro-esophageal reflux disease without esophagitis (principal); Z12.11 Encounter for screening for malignant neoplasm of colon; E11.9 Type 2 diabetes mellitus without complications
CPT/HCPCS: 99204

== ENCOUNTER → 2023-02-03 08:47 | Outpatient (BNVA) | payer OTHER, SELFPAY | PROVIDERS: PCP Anesthesiology; Visit Provider Physician Assistant | DX: Z12.11 Encounter for screening for malignant neoplasm of colon (principal); K21.9 Gastro-esophageal reflux disease without esophagitis; E11.9 Type 2 diabetes mellitus without complications | CPT/HCPCS: 99202 ==

== ENCOUNTER 2023-02-05 11:00 | Outpatient (RCR) | payer OTHER, SELFPAY ==
--- NOTE | 2023-01-01 08:59 | MHC.PT.EP ---
[facility] [place] Office [place] Office [place] Office [address] Arthur Rodrigues [address] [phone] F: [phone] F: [phone] F: [phone] F: [phone] Physical Therapy Plan of Care Date of Evaluation: 01/01/23 Date of Surgery: NA Diagnosis: SI JOINT DYSFUNCTION L SIDE Assessment: Pt IS 62 YO M REFERRED TO PT FROM DR CARRERA WITH SI JT DYSFUNCTION ON L. 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 Pt HAS HAD INJECTIONS WITH LIMITED RELIEF. PRESENTS WITH POOR GT PATTERN, DECREASED TRUNK AND LE FLEXIBILITY, POOR CORE STRENGTH. REPORTS HAS HAD PT IN PAST (IN [place]) WITHOUT RELIEF, BUT MD WANTED HIM TO TRY IT AGAIN. WILL TRY TO HELP WITH FLEXIBILITY AND STRENGTH AND ASSESS RESULTS. FU WITH MD IN JANUARY Frequency and Duration: The patient will be seen 2X/WK X 4 WKS Short Term Goals: 1. INCREASED AWARENESS BACK CARE AND POSTURE 2. Pt TO PERF 2-3 TASKS WITH PROPER BODY MECH 3. IMPROVED GT PATTERN Half-Way Goals: 1. I HEP WITH DC EX PLAN 2. INCREASED TRUNK ROM TO 50% T/O 3. DECREASED BACK PAIN AT LEAST 50% WITH ADLS Treatment Plan: Modalities to reduce pain, spasms and effusion. Manual therapy to restore motion and function. Therapeutic exercise to improve strength and flexibility. Neuromuscular re-education for posture and balance. Therapeutic activities to return to functional activities of daily living. Electronically signed by: SILVER GODWIN PT Please sign and return to therapist. Thank you for your referral.
--- NOTE | 2023-03-10 15:21 | MHC.PT.DC ---
[facility] [place] Office [place] [facility] [place] Office [address] Arthur Rodrigues [address] [phone] F: [phone] F: [phone] F: [phone] F: [phone] Physical Therapy Discharge Report Diagnosis: SI JOINT DYSFUNCTION L SIDE Date of Surgery: NA Date of Evaluation: 01/01/23 Date of Discharge: 03/10/23 Treatments to Date: 5 Cancellations to Date: No Shows to Date: Discharge Status: Patient Elected to Stop Recommend MD Follow-up Discharge Summary: Pt LAST SEEN IN PT ON 02/05/23 (5TH VISIT WITHOUT SIGNIF RELIEF IN BACK PAIN). THEN CANCELLED NEXT 2 APPTS. HAD FU WITH PAIN MANAGEMENT ON 02/23/23. PER THAT NOTE: 'Brian is back in my office for the evaluation after diagnostic L2-L3 L4 medial branch block bilateral. He reports very significant pain decrease after the procedure. He reports before the procedure his pain was 8/10. He reports that after the procedure for 24 hours his pain was no more than 1/10. This demonstrates at least 90% pain improvement for 24 hours after the injection. I offered him Sprint PNS and he agreed to go for the procedure. I explained to him the nature of the device and the way device will be working for him. I explained also to him expectations on for the pain relieve with the device. I will schedule him for the procedure accordingly. It will be done without sedation.' WILL DC FROM PT AT THIS TIME Electronically signed by: SILVER GODWIN PT Please sign and return to therapist. Thank you for your referral.
== END 2023-03-10 15:23 | disposition home or self-care (01) ==
LOC: HO.PT 11:00
PROVIDERS: PCP Anesthesiology; Visit Provider Anesthesiology
DX: M53.3 Sacrococcygeal disorders, not elsewhere classified (principal); M79.18 Myalgia, other site
CPT/HCPCS: 97110; 97140; 97161; 97535

== ENCOUNTER 2023-02-23 06:18 | Outpatient (REF) | payer OTHER, SELFPAY ==
--- NOTE | ~2023-02-23 | FL_ITS ---
EXAMINATION: XR FLUOROSCOPY WITH IMAGES CLINICAL INFORMATION: Spondylosis without myelopathy or radiculopathy, lumbar region COMPARISON: Lumbar spine 11/10/2022 CT scan. TECHNIQUE: FLUOROSCOPY SUPERVISED BY: Dr. Sydnie Woods. FLUOROSCOPY TIME: 0.9 minutes CUMULATIVE DOSE: 19.3 mGy-cm DAP: 0.336 mGy-m2 FLUOROSCOPIC IMAGES: 6. FINDINGS: 6 images demonstrate contrast in what appears to be epidural space bilaterally in the region of the foramen of what appear to be L5 foramina. FL/FL guidance in treatment room IMPRESSION: Fluoroscopic guidance for bilateral L5 epidural steroid injection.
== END 2023-02-23 06:19 | disposition home or self-care (01) ==
LOC: CF 06:18
PROVIDERS: Visit Provider Anesthesiology
DX: M47.816 Spondylosis without myelopathy or radiculopathy, lumbar region (principal); M53.3 Sacrococcygeal disorders, not elsewhere classified; M79.18 Myalgia, other site
CPT/HCPCS: 64493; 64494; J2795; Q9967

== ENCOUNTER 2023-02-23 10:52 | Outpatient (AMB) | payer OTHER, SELFPAY ==
[2023-02-23 11:06] VITALS: BP 132/62; PULSE 82; RESP 17; O2SAT 98; BMI 38.8
--- NOTE | 2023-02-23 11:06 | A.OFFVIS_ITS ---
Intake Vital Signs 02/23/23 11:06 02/23/23 11:07 Height 5 ft 7 in 5 ft 7 in Weight 248 lb 248 lb BMI 38.8 38.8 BP 132/62 128/74 Blood Pressure Location Lt brachial Lt brachial Position Sitting Sitting Respiration 17 17 Pulse 82 92 Pulse Source Pulse Oximeter Pulse Oximeter Pulse Oximetry (%) 98 98 Oxygen Delivery Method Room Air Room Air Comment pre-op post-op Intake Visit Reasons: BILAT DX L2-L3-L4 MBB/LOCAL Allergies No Known Allergies Allergy (Verified 02/23/23 11:08) PFSH Medical History CKD (chronic kidney disease) Diabetes HTN (hypertension) Surgical History Hx of cataract surgery History of surgery on lower extremity History of shoulder surgery Family History Father Diabetes Hypertension Cancer Mother Hypertension Diabetes Social History Housing: House Patient Tobacco Use Status: Never used Tobacco e-Cigarette/Vaping Use: Never Used Current occupational status: disabled Cognitive needs: No Hearing needs: No Vision needs: Yes Physical Exam Vital Signs: Last Vital Signs Pulse 92 02/23/23 11:07 Resp 17 02/23/23 11:07 BP 128/74 02/23/23 11:07 Pulse Ox 98 02/23/23 11:07 Oxygen Delivery Method Room Air 02/23/23 11:07 BMI result Body Mass Index 38.8 Assessment & Plan Assessment & Plan (1) Sacroiliac joint pain: Code(s): M53.3 - Sacrococcygeal disorders, not elsewhere classified Plan: Diagnostic L2-L3 -L4 medial branch block bilateral. Informed consent was explained to the patient. All questions were explained and? answered.? The patient was taken inside the operating room where she was positioned prone on the operating table.? Time-out was performed delineating correct site, side, the nature of the procedure, patient's allergy, preoperative antibiotic if needed.? All operating room staff was participating in OR time-out procedure. ? The lower back was prepped with ChloraPrep and draped with sterile towels.? Sterilely draped C-arm was brought over the operating field and sq picture of L3-L4 and L5 vertebra were delineated on the screen.? Point of interest were delineated as connection of superior articular process of L3, L4 and L5 vertebra bilaterally with corresponding transverse processes. The projection of the point of interest to the skin were injected with the small amount of local anesthetic lidocaine 2% 1-1.5 cc.? After that 22 gauge 3-1/2 inch spinal needle was driven sequentially to the points of interest in tunnel vision fashion. After needles gently contacted the bone at the point of interests the needle was injected with small amount of the contrast.? The injection of the contrast did not demonstrate any intravascular or intrathecal spread of the contrast.? After that injection of the? bupivacaine 0.5%-1cc was performed at each needle location.? Upon completion of the injections? needle was? removed and sterile Band-Aids were applied.? The? patient tolerated procedure fairly well. (2) Sacroiliac joint dysfunction of left side: Code(s): M53.3 - Sacrococcygeal disorders, not elsewhere classified (3) Myofascial pain syndrome: Code(s): M79.18 - Myalgia, other site (4) Spondylosis of lumbar region without myelopathy or radiculopathy: Code(s): M47.816 - Spondylosis without myelopathy or radiculopathy, lumbar region Plan The patient was evaluated for the pain on the left with multiple procedures. Diagnostic medial branch block resulted in not significant improvement. Diagnostic sacroiliac joint block resulted in 80% pain improvement for the next 6 hours after the procedure. SI joint fusion was taken into consideration and was planned however his insurance company requested us to perform 2nd diagnostic versus therapeutic sacroiliac joint block. After performance of the block patient reported pain reduction more than 50%. However today during the conversation he reported that his pain is mostly against left iliac crest with radiation into the left loin. There is a possibility there that his pain is multifactorial in nature and myofascial pain on the left could not be excluded. I evaluated his CT scan in his chart again and I think most of the pain he relates to might be coming from facet joints in the lumbar spine I would like to repeat this procedure but now I would like to take it 1 level higher doing L2- L3-L4 bilateral medial branch block diagnostic. I will see him for the procedure and evaluate him after the procedure. Orders: Orders FL guidance in treatment room 02/23/23 M47.816 - Spondylosis without myelopathy or radiculopathy, lumbar region Coding Level of Care Code Procedure Only Diagnoses Sacroiliac joint pain M53.3 Sacroiliac joint dysfunction of left side M53.3 Myofascial pain syndrome M79.18 Spondylosis of lumbar region without myelopathy or radiculopathy M47.816
[2023-02-23 11:07] VITALS: BP 128/74; PULSE 92; RESP 17; O2SAT 98; BMI 38.8
== END 2023-02-23 11:54 | disposition home or self-care (01) ==
LOC: HO.PMCPRC 10:52
PROVIDERS: PCP Anesthesiology; Visit Provider Anesthesiology
DX: M47.816 Spondylosis without myelopathy or radiculopathy, lumbar region (principal); M53.3 Sacrococcygeal disorders, not elsewhere classified; M79.18 Myalgia, other site
CPT/HCPCS: 64493; 64494

== ENCOUNTER 2023-03-01 10:50 | Outpatient (AMB) | payer OTHER, SELFPAY ==
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
[2023-03-01 11:26] VITALS: BP 112/56; PULSE 84; RESP 16; O2SAT 97; BMI 38.5
== END 2023-03-01 11:38 | disposition home or self-care (01) ==
PROVIDERS: PCP Anesthesiology; Visit Provider Anesthesiology
DX: M53.3 Sacrococcygeal disorders, not elsewhere classified (principal); M79.18 Myalgia, other site; M47.816 Spondylosis without myelopathy or radiculopathy, lumbar region
CPT/HCPCS: 99214

== ENCOUNTER → 2023-03-01 10:50 | Outpatient (BNVA) | payer OTHER, SELFPAY | PROVIDERS: PCP Anesthesiology; Visit Provider Anesthesiology | DX: M53.3 Sacrococcygeal disorders, not elsewhere classified (principal); M79.18 Myalgia, other site; M47.816 Spondylosis without myelopathy or radiculopathy, lumbar region | CPT/HCPCS: 99212 ==

== ENCOUNTER 2023-03-10 12:07 | Outpatient (AMB) | payer OTHER, SELFPAY ==
[2023-03-10 12:09] VITALS: BP 110/60; PULSE 95; O2SAT 98; BMI 38.5
--- NOTE | 2023-03-10 12:09 | A.OFFPC_ITS ---
Vital Signs 03/10/23 12:09 Height 5 ft 7 in Weight 246 lb BMI 38.5 BP 110/60 Blood Pressure Location Rt brachial Position Sitting Pulse 95 Pulse Source Pulse Oximeter Pulse Oximetry (%) 98 Oxygen Delivery Method Room Air Intake Visit Reasons: ER-chest pain, elevated BP Allergies No Known Allergies Allergy (Verified 03/10/23 12:11) Medication List - Last Reconciled 03/10/23 by Shawn Johnson MD amlodipine-benazepril 10-20 mg 1 cap PO DAILY aspirin (Adult Low Dose Aspirin) 81 mg PO DAILY atorvastatin 10 mg PO BEDTIME bisacodyl (Dulcolax (bisacodyl)) 20 mg (4 x 5 mg) PO ONCE 1 day blood sugar diagnostic (FreeStyle Lite Strips) USE TO CHECK BLOOD SUGAR 3 TIMES DAILY: FASTING AND BEFORE MEALS cholecalciferol (vitamin D3) 25 mcg PO DAILY 90 days dorzolamide-timolol 22.3-6.8 mg/mL 1 drp ophthalmic (eye) BID dulaglutide (Trulicity) 4.5 mg (0.5 mL) subcut QWEEK 90 days flash glucose sensor (FreeStyle Ye 2 Sensor kit) Use with sensor to monitor blood sugar TID and as needed for s/s hypo/hyperglycemia FreeStyle Ye 2 [place] (flash glucose scanning reader) Use with sensor to monitor blood sugar TID and as needed for s/s hypo/hyperglycemia NS FreeStyle Lite Meter (blood-glucose meter) Use to check blood sugar 4 times daily, fasting and AC NS gabapentin 300 mg PO TID PRN insulin aspart U-100 (Novolog FlexPen U-100 Insulin aspart) 15 units (0.15 mL) subcut TID 90 days [insulin pen needles 4 times a day] lamotrigine 100 mg PO BID lancets (FreeStyle Lancets) Use to check blood sugar QID, fasting and AC Lantus Solostar U-100 Insulin (insulin glargine) subcutaneously 2 times a day; 50 units at night and 20 units in the morning 90 days NS levothyroxine 50 mcg PO DAILY lidocaine 5% leave on most painful area for up to 12 hrs topically daily; 30 days pantoprazole 20 mg PO DAILY polyethylene glycol 3350 (Miralax) 238 grams PO ONCE PRN 1 day Tobacco use date assessed: 03/10/23 Dental Screening Dental Screen Date: 03/10/23 Did you have a dental visit in the last 12 months?: Yes Did you have a dental problem in the last 6 months where you did not have access to dental care?: Yes Was dental information given to patient?: Patient has dentist HPI ER-chest pain, elevated BP HPI Details Patient is 62-year-old gentleman came in [facility] hospital discharge follow-up [facility] 08 of March Patient presented with a chief complaint of chest discomfort, sweating, headache and elevated blood pressure Patient have a history of type 2 diabetes mellitus, chronic kidney disease, peripheral vascular disease, arthritis, hypertension, and lipid disorder along with obesity By the time patient arrived in emergency room his chest pain resolved Patient has been monitoring his blood pressure with a wrist blood pressure monitoring at home which is not accurate By the time his blood pressure was checked in emergency room it was 118 systolic and 74 diastolic Oxygen saturation was 100% EKG without any ischemic changes He says that his blood pressure is fluctuating and it is usually running high at night I have advised patient to get a new blood pressure monitor that goes over his arm and not the wrist His blood pressure is controlled at this time Patient has a follow-up appointment in March we will re-evaluate at that time [facility] Medical History CKD (chronic kidney disease) Diabetes HTN (hypertension) Surgical History Hx of cataract surgery History of surgery on lower extremity History of shoulder surgery Family History Father Diabetes Hypertension Cancer Mother Hypertension Diabetes Social History Housing: House Patient Tobacco Use Status: Never used Tobacco e-Cigarette/Vaping Use: Never Used Current occupational status: disabled Cognitive needs: No Hearing needs: No Vision needs: Yes Questionnaire PHQ-9 Over the last 2 weeks, how often have you been bothered by any of the following problems? 1. Little interest or pleasure in doing things: not at all 2. Feeling down, depressed, or hopeless: not at all 3. Trouble falling or staying asleep, or sleeping too much: not at all 4. Feeling tired or having little energy: not at all 5. Poor appetite or overeating: not at all 6. Feeling bad about yourself - or that you are a failure or have let yourself or your family down: not at all 7. Trouble concentrating on things, such as reading the newspaper or watching television: not at all 8. Moving or speaking so slowly that other people could have noticed. Or the opposite - being so fidgety or restless that you have been moving around a lot more than usual: not at all 9. Thoughts that you would be better off or of hurting yourself in some way: not at all Total score: 0 Depression Screening Interpretation: Negative Depression Screening Done: Yes 88070 - PHQ-9 Billing: Yes Source: Developed by Drs. Josiah Bailey, Gema Zimmerman, Brian Jo and colleagues, with an educational lovely from [employer]. Thrive Questionnaire Date Thrive assessed: 03/10/23 I am a: Patient What is your living situation today?: I have a steady place to live Within the past 12 months, did the food you bought not last and you didn't have the money to get more?: Never true Do you have trouble paying for medicines?: No Do you have trouble getting transportation to medical appointments?: No Do you have trouble paying your heating and electricity bill?: No Do you have trouble taking care of your child, family member or friend?: No Do you have trouble with day-to-day activities such as bathing, preparing meals, shopping, managing finances, etc.?: No Are you currently unemployed and looking for a job?: No Are you interested in more education?: No Please select the resources that you would like help with: None Currently or been in a relationship where the following occur: no concerns reported AMINATA-7 AMB Questionnaire AMINATA-7 Date AMINATA - 7 assessed: 03/10/23 Feeling nervous, anxious, or on edge: 0 = Not at all Not being able to stop or control worryin = Not at all Worrying too much about different things: 0 = Not at all Trouble relaxin = Not at all Being so restless that it is hard to sit still: 0 = Not at all Becoming easily annoyed or irritable: 0 = Not at all Feeling afraid as if something awful might happen: 0 = Not at all Total AMINATA-7 score (0-4 normal; 5-9 mild; 10-14 moderate; 15-21 severe): 0 Source: Developed by Drs. Josiah Bailey, Gema Zimmerman, Brian Jo and colleagues, with an educational lovely from [employer]. AMINATA-7 Assessment Billing AMINATA-7 Assessment Tool: AMINATA-7 Assessment 55839 Review of Systems Const Denies chills and Denies fever(s) ENT Denies epistaxis and Denies nasal discharge Card Denies chest pain Resp Denies chest congestion, Denies cough and Denies hemoptysis GI Denies diarrhea and Denies nausea Skin/Breast Denies rash Neuro Reports no additional complaints Psych Reports no additional complaints Endo Reports no additional complaints Physical exam (Primary Care) Vital Signs: Last Vital Signs Pulse 95 03/10/23 12:09 BP 110/60 03/10/23 12:09 Pulse Ox 98 03/10/23 12:09 Oxygen Delivery Method Room Air 03/10/23 12:09 BMI result Body Mass Index 38.5 Tobacco/Smoking Status: Tobacco use Status Tobacco use date assessed 03/10/23 03/10/23 12:11 Patient Tobacco Use Status Never used Tobacco 03/10/23 12:10 e-Cigarette/Vaping Use Never Used 03/10/23 12:10 PHQ-9: PHQ-9 Score PHQ-9: Total score 0 03/10/23 12:53 Depression Screening Interpretation: Negative Thrive Assessment: Date of Thrive Assessment Date Thrive assessed 03/10/23 03/10/23 12:30 Currently or been in a relationship where the following occur: no concerns reported Const General: cooperative, comfortable and no acute distress Orientation/consciousness: patient oriented x3 HENMT Head: Yes normocephalic Eyes General: appearance normal, both eyes and all related structures Neck Neck: Yes supple Resp Effort & Inspection: normal respiratory effort, no cough and no stridor Cardio Rhythm: regular rhythm Heart sounds: S1 normal heart sound present and S2 normal heart sound present Skin General skin exam: turgor normal Neuro General: patient oriented x3, tone normal and moves all extremities Extrem Right lower extremity: no edema Left lower extremity: no edema Assessment and Plan Assessment & Plan (1) Hospital discharge follow-up: Code(s): Z09 - Encounter for follow-up examination after completed treatment for conditions other than malignant neoplasm (2) Diabetic nephropathy: Code(s): E11.21 - Type 2 diabetes mellitus with diabetic nephropathy Qualifiers: Diabetes mellitus type: type 1 Qualified Code(s): E10.21 - Type 1 diabetes mellitus with diabetic nephropathy (3) Labile blood pressure: Code(s): R09.89 - Other specified symptoms and signs involving the circulatory and respiratory systems Plan Patient is 62-year-old gentleman came in today hospital discharge follow-up [facility] 08 of March Patient presented with a chief complaint of chest discomfort, sweating, headache and elevated blood pressure Patient have a history of type 2 diabetes mellitus, chronic kidney disease, peripheral vascular disease, arthritis, hypertension, and lipid disorder along with obesity By the time patient arrived in emergency room his chest pain resolved Patient has been monitoring his blood pressure with a wrist blood pressure m onitoring at home which is not accurate By the time his blood pressure was checked in emergency room it was 118 systolic and 74 diastolic Oxygen saturation was 100% EKG without any ischemic changes He says that his blood pressure is fluctuating and it is usually running high at night I have advised patient to get a new blood pressure monitor that goes over his arm and not the wrist His blood pressure is controlled at this time Patient has a follow-up appointment in March we will re-evaluate at that time Coding Level of Care Code Est Pt Level 4 (76897) Diagnoses Hospital discharge follow-up Z09 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 E10.21 Diabetes mellitus type: type 1 Labile blood pressure R09.89 Additional Codes AMINATA-7 Assessment Billing - AMINATA-7 Assessment Tool: AMINATA-7 Assessment 11115 ([id number])
== END 2023-03-10 16:26 | disposition home or self-care (01) ==
PROVIDERS: PCP Internal Medicine; Visit Provider Internal Medicine
DX: Z09 Encounter for follow-up examination after completed treatment for conditions other than malignant neoplasm (principal); E10.21 Type 1 diabetes mellitus with diabetic nephropathy; R09.89 Other specified symptoms and signs involving the circulatory and respiratory systems
CPT/HCPCS: 99214

== ENCOUNTER 2023-04-08 13:23 | Outpatient (AMB) | payer OTHER, SELFPAY ==
[2023-04-08 14:56] VITALS: BP 130/58; PULSE 94; TEMP 36.3; O2SAT 96; BMI 37.8
--- NOTE | 2023-04-08 14:56 | AM.OFFWIN_ITS ---
Intake Vital Signs 04/08/23 14:56 Height 5 ft 7 in Weight 241 lb 8 oz BMI 37.8 BP 130/58 L Blood Pressure Location Lt brachial Position Sitting Pulse 94 Pulse Source Pulse Oximeter Temp 97.4 F Temp Source Oral Pulse Oximetry (%) 96 Oxygen Delivery Method Room Air Intake Visit Reasons: EST/headache, not eating(lobby masked) Intake Note: Pt is here for sore throat congestion, hasn't ate in 5 days Patient Tobacco Use Status: Never used Tobacco Allergies No Known Allergies Allergy (Verified 04/08/23 14:59) Do you need a note to return to daycare/school/sports/work: No HPI HPI Comments History of Present Illness Details 63 y/o male patient presents to walk in clinic with c/o congestion and sorethroat x 5 days. Reports Nausea, vomiting, diarrhea and abdominal pain. Pt unble to eat anything due to nausea/vomiting. Reports poor appetite. PFSH Medical History CKD (chronic kidney disease) Diabetes HTN (hypertension) Surgical History Hx of cataract surgery History of surgery on lower extremity History of shoulder surgery Family History Father Diabetes Hypertension Cancer Mother Hypertension Diabetes Social History Housing: House Patient Tobacco Use Status: Never used Tobacco e-Cigarette/Vaping Use: Never Used Current occupational status: disabled Cognitive needs: No Hearing needs: No Vision needs: Yes Review of Systems Const All systems reviewed & are unremarkable except as noted in HPI and below Physical Exam Vital Signs: Last Vital Signs Temp 97.4 F 04/08/23 14:56 Pulse 94 04/08/23 14:56 BP 130/58 L 04/08/23 14:56 Pulse Ox 96 04/08/23 14:56 Oxygen Delivery Method Room Air 04/08/23 14:56 BMI result Body Mass Index 37.8 Const General: cooperative, comfortable (Appears uncomfortable), no acute distress and acute distress HEENT Head: Yes normocephalic Ears: external ears normal and TM's normal bilaterally General nose exam: Normal external nose present and Normal nasal mucous membranes and turbinates present Face and sinus: Yes sinuses nontender Mouth: Normal oral and palatal mucosa present and moist mucous membranes Throat: Yes posterior oropharynx normal Resp Effort & Inspection: normal respiratory effort Auscultation: clear to auscultation bilaterally Cardio Rate: regular rate Rhythm: regular rhythm GI Inspection: Yes obesity (Large obese abdomen), No visible herniation and No visible pulsation Palpation (GI): Soft to palpation, Tenderness to palpation present (GI) in the epigastrum and No hepatosplenomegaly present Auscultation: normal bowel sounds Results AMB Rapid Strep AMB Rapid Strep Negative Last Edit by Uzma Ramos CMA on 04/08/23 15 :18 Results Reviewed Results Reviewed: Laboratory Last Values Strep Scn Rapid Clinic Negative 04/08/23 15:18 Assessment & Plan Assessment & Plan (1) Acute pharyngitis: Code(s): J02.9 - Acute pharyngitis, unspecified Qualifiers: Pharyngitis/tonsillitis etiology: other specified organisms Qualified Code(s): J02.8 - Acute pharyngitis due to other specified organisms Plan: - Warm fluids - Hydrate well - Rest - Advance diet slowly. - BLAND diet (2) Gastritis: Code(s): K29.70 - Gastritis, unspecified, without bleeding Qualifiers: Chronicity: acute Gastritis bleeding: without bleeding Gastritis type: other gastritis Qualified Code(s): K29.00 - Acute gastritis without bleeding Plan: - Reglan and Zofran for N/V - BLAND diet Plan POSITIVE INFLUENZA A - SENT RX FOR TAMIFLU Orders: Orders SARS-CoV2/FLU/RSV 04/08/23 J02.8 - Acute pharyngitis due to other specified organisms AMB Rapid Strep Screen 04/08/23 Z13.9 - Encounter for screening, unspecified Medications: New metoclopramide HCl (Reglan) 10 mg PO Q6H 28 tabs 0RF 7 days K29.00 - Acute gastritis without bleeding ondansetron 8 mg PO Q8H 30 tabs 0RF 10 days K29.00 - Acute gastritis without bleeding oseltamivir (Tamiflu) 75 mg PO BID 10 caps 0RF 5 days J10.1 - Influenza due to other identified influenza virus with other respiratory manifestations Coding Level of Care Code Est Pt Level 3 (76660) Diagnoses Acute pharyngitis due to other specified organisms J02.8 Pharyngitis/tonsillitis etiology: other specified organisms Other acute gastritis without hemorrhage K29.00 Chronicity: acute Gastritis bleeding: without bleeding Gastritis type: other gastritis Time Spent (min) 15
== END 2023-04-08 16:17 | disposition home or self-care (01) ==
PROVIDERS: PCP Internal Medicine; Visit Provider Nurse Practitioner Family
DX: J02.9 Acute pharyngitis, unspecified (principal); K29.00 Acute gastritis without bleeding
CPT/HCPCS: 87880; 99213

== ENCOUNTER 2023-04-08 17:03 | Outpatient (REF) | payer OTHER, SELFPAY ==
[2023-04-08 18:03] LABS: Influenza A PCR POSITIVE (Negative); Influenza B PCR NEGATIVE (Negative); Resp Syncy Virus RNA Qual PCR NEGATIVE (Negative); SARS COV2 PCR INHOUSE NEGATIVE (Negative)
== END 2023-04-08 17:04 | disposition home or self-care (01) ==
LOC: HO.HMGCLNP 17:03
PROVIDERS: Visit Provider Nurse Practitioner Family
DX: J02.8 Acute pharyngitis due to other specified organisms (principal); Z11.52 Encounter for screening for COVID-19; Z20.828 Contact with and (suspected) exposure to other viral communicable diseases
CPT/HCPCS: 0241U

== ENCOUNTER 2023-04-23 09:46 | Outpatient (AMB) | payer OTHER, SELFPAY ==
--- NOTE | 2023-04-23 09:50 | AM.OFFWIN_ITS ---
Intake Vital Signs 04/23/23 09:51 Height 5 ft 7 in Weight 240 lb BMI 37.6 BP 120/62 Blood Pressure Location Rt brachial Position Sitting Pulse 85 Pulse Source Pulse Oximeter Temp 97.9 F Temp Source Oral Pulse Oximetry (%) 98 Oxygen Delivery Method Room Air Intake Visit Reasons: EP Cough, LT ear pain/unable to hear Intake Note: Pt is here c/o left ear pain and on going cough for more than five days. Pt states he was seen one week ago for the same cough and it has worsened. Patient Tobacco Use Status: Never used Tobacco Allergies No Known Allergies Allergy (Verified 04/23/23 09:51) Do you need a note to return to daycare/school/sports/work: No HPI HPI Comments History of Present Illness Details This is a 63-year-old male who presented to the walk-in clinic complaining of left ear pain x 5 days. Patient states he was diagnosed with the flu several weeks ago. He states that he has had a dry cough since then. Patient also states that he started to develop left ear pain about 5 days ago. He denies any fevers/chills. He reports occasional diffuse chest pain with coughing. He denies any shortness of breath. He denies any abdominal pain or nausea/vomiting. [facility] Medical History CKD (chronic kidney disease) Diabetes HTN (hypertension) Surgical History Hx of cataract surgery History of surgery on lower extremity History of shoulder surgery Family History Father Diabetes Hypertension Cancer Mother Hypertension Diabetes Social History Housing: House Patient Tobacco Use Status: Never used Tobacco e-Cigarette/Vaping Use: Never Used Current occupational status: disabled Cognitive needs: No Hearing needs: No Vision needs: Yes Review of Systems Const All systems reviewed & are unremarkable except as noted in HPI and below Reports no additional complaints Eyes Reports no additional complaints ENT Reports no additional complaints Card Reports no additional complaints Resp Reports no additional complaints GI Reports no additional complaints Reports no additional complaints Musc Reports no additional complaints Skin/Breast Reports system reviewed and no additional complaints, except as documented Neuro Reports no additional complaints Psych Reports no additional complaints Endo Reports no additional complaints Saurabh/Lymph Reports no additional complaints Aller/Immun Reports no additional complaints Physical Exam Vital Signs: Last Vital Signs Temp 97.9 F 04/23/23 09:51 Pulse 85 04/23/23 09:51 BP 120/62 04/23/23 09:51 Pulse Ox 98 04/23/23 09:51 Oxygen Delivery Method Room Air 04/23/23 09:51 BMI result Body Mass Index 37.6 Const Other: Vital signs reviewed. Constitutional: Non-toxic appearing. No acute distress. Well-developed and well-nourished. HEENT: Normocephalic and atraumatic. His right tympanic membrane is within normal limits without erythema or edema and there is no erythema or edema of his right external auditory canal. His left external auditory canal is impacted with cerumen. Skin: Warm and dry. No rashes or lesions noted. Neck: Full and painless range of motion. Cardio: Regular rate. No lower extremity edema. No JVD. Pulmonary: No respiratory distress. No accessory muscle usage. Gastrointestinal: Soft, nontender, and nondistended in all 4 quadrants. Musculoskeletal: Normal range of motion in joints throughout the body. No defor mity or other signs of injury. Neuro: Alert and oriented x4. Cranial nerves 2-12 grossly intact. No focal deficits appreciated. Psych: Normal mood and affect. Office Procedures EKG Details: Normal sinus rhythm, no acute ischemic changes, no ST-T wave changes [id number], Complete Assessment & Plan Assessment & Plan (1) Post-viral cough syndrome: Code(s): R05.8 - Other specified cough (2) Left ear pain: Code(s): H92.02 - Otalgia, left ear Plan This is a 63-year-old male who presents to walk-in clinic complaining of a dry cough for the past several weeks after being diagnosed with a flu-like illness as well as left ear pain x5 days. On physical exam his lungs are auscultation bilaterally without wheezing, rhonchi, or rales. He has diffuse chest wall tenderness to palpation. His left ear had some cerumen impaction so cerumen removal was performed and revealed an erythematous/edematous external auditory canal consistent with acute otitis externa. Patient's vital signs are stable and he is overall nontoxic appearing. Patient very likely has a post viral cough given no sputum production, no fever/chills, and normal lung sounds. He was given a prescription for p.o. benzonatate 100 mg 3 times daily as needed for cough. He very likely has musculoskeletal chest pain in the setting of his cough as he has diffuse chest wall tenderness to palpation and a normal EKG, so he was given a prescription for p.o. ibuprofen 800 mg 3 times daily as needed. Patient was also given a prescription for neomycin/polymyxin/hydrocortisone drops to the left ear for treatment of acute otitis externa. Patient was advised to follow-up here or proceed to the emergency room if he were to develop persistent or worsening symptoms. Patient verbalized understanding and is agreeable with the plan. Orders: Orders AMB EKG-In Office Today R07.9 - Chest pain, unspecified Medications: New benzonatate 100 mg PO TID PRN 14 caps 0RF cough [id number]-bhczgsetn-UH 3.5-10,000-1 mg/mL-unit/mL-% 4 drps otic (ear) left Q6H 10 days 10 mL 0RF ibuprofen Take with food. 800 mg PO Q8H PRN 10 tabs 0RF pain Coding Level of Care Code Est Pt Level 3 (79852) Diagnoses Post-viral cough syndrome R05.8 Left ear pain H92.02 CPT Codes EKG - CPT: 91538-[id number], Complete ([id number])
[2023-04-23 09:51] VITALS: BP 120/62; PULSE 85; TEMP 36.6; O2SAT 98; BMI 37.6
== END 2023-04-23 10:35 | disposition home or self-care (01) ==
PROVIDERS: PCP Internal Medicine; Visit Provider Physician Assistant Medical
DX: R05.8 Other specified cough (principal); H92.02 Otalgia, left ear; R07.9 Chest pain, unspecified; H61.22 Impacted cerumen, left ear
CPT/HCPCS: 69210; 93000; 99213

== ENCOUNTER 2023-04-27 06:14 | Outpatient (REF) | payer OTHER, SELFPAY ==
--- NOTE | ~2023-04-27 | FL_ITS ---
EXAMINATION: XR FLUOROSCOPY WITH IMAGES CLINICAL INFORMATION: Spondylosis without myelopathy or radiculopathy COMPARISON: Fluoroscopic guidance 03/29/2023, lumbar spine 06/05/2022 TECHNIQUE: Fluoroscopy Supervised By: Dr. Valderrama Fluoroscopy Time: 0.1 minutes. Cumulative Dose: 2.61 mGy. DAP: 0.0454 Gycm2. Images: 1. FINDINGS: A single image demonstrates the tip of a needle with attached catheter tubing projected over the left lateral aspect of the L4 vertebral body. FL/FL guidance in treatment room IMPRESSION: Imaging assistance provided during a fluoroscopic procedure.
== END 2023-04-27 06:15 | disposition home or self-care (01) ==
LOC: CF 06:14
PROVIDERS: Visit Provider Anesthesiology
DX: M47.816 Spondylosis without myelopathy or radiculopathy, lumbar region (principal)
CPT/HCPCS: 64555; C1778

== ENCOUNTER 2023-04-27 12:53 | Outpatient (AMB) | payer OTHER, SELFPAY ==
--- NOTE | 2023-04-27 13:20 | A.OFFVIS_ITS ---
Intake Vital Signs 04/27/23 14:09 04/27/23 14:11 Height 5 ft 7 in 5 ft 7 in Weight 240 lb 240 lb BMI 37.6 37.6 BP 115/60 118/80 Blood Pressure Location Lt brachial Lt brachial Position Sitting Sitting Respiration 16 16 Pulse 91 88 Pulse Source Pulse Oximeter Pulse Oximeter Pulse Oximetry (%) 100 99 Oxygen Delivery Method Room Air Room Air Comment pre-op post-op Intake Visit Reasons: RIGHT L4 MB SPRINT PNS TRIAL Allergies No Known Allergies Allergy (Verified 04/27/23 14:12) PFSH Medical History CKD (chronic kidney disease) Diabetes HTN (hypertension) Surgical History Hx of cataract surgery History of surgery on lower extremity History of shoulder surgery Family History Father Diabetes Hypertension Cancer Mother Hypertension Diabetes Social History Housing: House Patient Tobacco Use Status: Never used Tobacco e-Cigarette/Vaping Use: Never Used Current occupational status: disabled Cognitive needs: No Hearing needs: No Vision needs: Yes Physical Exam Vital Signs: Last Vital Signs Pulse 88 04/27/23 14:11 Resp 16 04/27/23 14:11 BP 118/80 04/27/23 14:11 Pulse Ox 99 04/27/23 14:11 Oxygen Delivery Method Room Air 04/27/23 14:11 BMI result Body Mass Index 37.6 Office Procedures Sprint PNS Device: Sprint PNS Device [id number] Percutaneous Peripheral Neuroelectrode Procedure: 89729 - Percutaneous Peripheral Neuroelectrode Procedure code (CPT) selection complete Office Meds lidocaine (PF) 50 mg/5 mL (1 %) injection syringe Performing Provider: Wil Valderrama MD Performing Location: [facility] Administered by: Wil Valderrama MD on 04/27/23 13:57 Dose Route Admin Location Dispensed Lot Number Expiration Date NDC Spring Up Supervisor 5 mL subcut 5 mL Assessment & Plan Assessment & Plan (1) Spondylosis of lumbar region without myelopathy or radiculopathy: Code(s): M47.816 - Spondylosis without myelopathy or radiculopathy, lumbar region Plan Sprint PNS L4 right right side After the risks, benefits and alternatives were discussed with the patient and informed consent was obtained, patient was placed in the prone position and padded to foster comfort. Time out was performed delineating correct site and side of the procedure , name and of the patient, patient participated in time out procedure. the lower back of the patient was prepped with ChloraPrep and draped with full body fenestrated drape. ?Sterily draped C-arm was brought over the operating field and clear picture of the lumbar spine was demonstrated on the screen. Right L4 lamina was chosen as the target of the tip of the needle position. Projection of the L3 lamina was chosen as the start of the needle advancement. That point was chosen as the local anesthetic infiltration point. After identifying and marking the intended target, the skin around the planned entry point and the subcutaneous tissues were injected with local anesthetic forming skin wheal.. ?A percutaneous sleeve and stimulating probe lead introduction system were assembled, inserted and advanced through the skin wheal to the? point of interest under C-arm view in oblique vision fashion, the introducer needle was delivered to a location in proximity to the multifidus muscles at the left lamina of L4 Multiple stimulation parameters were used to deliver stimulation to the? nerve in concert with stimulating at multiple positions around the nerve. 3 positions were tried: in the most medial point of the lamina most lateral poin of the lamina and one point in between of those two. The mid - position was given the most of the stimulation to the patient. Nerve target acquisition was confirmed noting generation of? in the? corresponding to the nerve being stimulated. Various electrical parameter combinations were tested, and the lead location was adjusted? until the patient indicated? overlapping the distribution of the patient?s typical region of pain. The stimulating probe was removed from the introducer and a percutaneous lead was guided through the needle and delivered to a location in similar proximity to the nerve. Final location was verified with electrical stimulation. The introducer needle was removed, and the exposed end of the percutaneous lead was attached to an external stimulator unit. Various electrical parameter combinations were again tested until the patient indicated paresthesia or muscle tension overlapping the distribution of the patient?s typical region of pain. After confirming that lead impedance was in the normal range, the external unit was detached, the needle was removed, and the lead was anchored at the skin. The lead was threaded into the connector block and electrical continuity and desired patient response was confirmed. The connector block was attached to the external stimulator unit. The site was covered with a sterile occlusive dressing and an? image was taken to document final placement. ?Upon completion of the procedure the patient was taken outside the OR where he recovered uneventfully she went home without immediate complications Orders: Orders FL guidance in treatment room Today M47.816 - Spondylosis without myelopathy or radiculopathy, lumbar region Sydnie Woods APRN, [employer]ATIONS MANAGER AMB Sprint PNS Today M47.816 - Spondylosis without myelopathy or radiculopathy, lumbar region Wil Valderrama MD Coding Level of Care Code Procedure Only Diagnoses Spondylosis of lumbar region without myelopathy or radiculopathy M47.816 CPT Codes Sprint PNS - Sprint PNS Device: Sprint PNS Device ([id number]) Sprint PNS - SPRINT: 13173 - Percutaneous Peripheral Neuroelectrode ([id number])
[2023-04-27 14:09] VITALS: BP 115/60; PULSE 91; RESP 16; O2SAT 100; BMI 37.6
[2023-04-27 14:11] VITALS: BP 118/80; PULSE 88; RESP 16; O2SAT 99; BMI 37.6
== END 2023-04-27 14:00 | disposition home or self-care (01) ==
LOC: HO.PMCPRC 12:53
PROVIDERS: PCP Internal Medicine; Visit Provider Anesthesiology
DX: M47.816 Spondylosis without myelopathy or radiculopathy, lumbar region (principal)
CPT/HCPCS: 64555

== ENCOUNTER 2023-04-30 09:41 | Outpatient (REF) | payer OTHER, SELFPAY ==
--- NOTE | ~2023-04-30 | US_ITS ---
EXAMINATION: US RETROPERITONEAL LIMITED (RENAL ONLY) CLINICAL INFORMATION: Frequency of micturition. Try to estimate prostate volume. COMPARISON: None available. TECHNIQUE: Real-time imaging of the kidneys. FINDINGS: RIGHT KIDNEY: 9.8 x 4.9 x 4.6 cm (SAG x AP x TRV). The kidney is normal in size, contour, and echogenicity. Renal cortical thickness is normal. No calculi or focal parenchymal lesions. No hydronephrosis. LEFT KIDNEY: 10.1 x 5.0 x 6.0 cm (SAG x AP x TRV). The kidney is normal in size, contour, and echogenicity. Renal cortical thickness is normal. No calculi or focal parenchymal lesions. No hydronephrosis. US/US renal BI IMPRESSION: No significant sonographic abnormality in the kidneys.
== END 2023-04-30 09:42 | disposition home or self-care (01) ==
LOC: HO.US 09:41
PROVIDERS: PCP Internal Medicine; Visit Provider Urology
DX: R35.0 Frequency of micturition (principal)
CPT/HCPCS: 76775

== ENCOUNTER 2023-05-03 14:07 | Outpatient (AMB) | payer OTHER, SELFPAY ==
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
[2023-05-03 14:36] VITALS: BP 118/60; PULSE 89; RESP 16; O2SAT 98; BMI 37.6
== END 2023-05-03 14:35 | disposition home or self-care (01) ==
PROVIDERS: PCP Internal Medicine; Visit Provider Anesthesiology
DX: M53.3 Sacrococcygeal disorders, not elsewhere classified (principal); M79.18 Myalgia, other site; M47.816 Spondylosis without myelopathy or radiculopathy, lumbar region
CPT/HCPCS: 99024

== ENCOUNTER → 2023-05-03 14:07 | Outpatient (BNVA) | payer OTHER, SELFPAY | PROVIDERS: PCP Internal Medicine; Visit Provider Anesthesiology | DX: M53.3 Sacrococcygeal disorders, not elsewhere classified (principal); M79.18 Myalgia, other site; M47.816 Spondylosis without myelopathy or radiculopathy, lumbar region | CPT/HCPCS: 99212 ==

== ENCOUNTER 2023-05-05 11:12 | Outpatient (AMB) | payer OTHER, SELFPAY ==
[2023-05-05 11:14] VITALS: BP 116/56; PULSE 87; O2SAT 97; BMI 37.7
--- NOTE | 2023-05-05 11:14 | MHC.PC.OV ---
Vital Signs 05/05/23 11:14 Height 5 ft 7 in Weight 241 lb BMI 37.7 BP 116/56 L Blood Pressure Location Lt brachial Position Sitting Pulse 87 Pulse Source Pulse Oximeter Pulse Oximetry (%) 97 Oxygen Delivery Method Room Air Intake Visit Reasons: 6m follow up ( meds ) Allergies No Known Allergies Allergy (Verified 05/05/23 11:14) Medication List - Last Reconciled 05/05/23 by Shawn Johnson MD amlodipine-benazepril 10-20 mg 1 cap PO DAILY aspirin (Adult Low Dose Aspirin) 81 mg PO DAILY atorvastatin 10 mg PO BEDTIME benzonatate 100 mg PO TID PRN bisacodyl (Dulcolax (bisacodyl)) 20 mg (4 x 5 mg) PO ONCE 1 day blood sugar diagnostic (FreeStyle Lite Strips) USE TO CHECK BLOOD SUGAR 3 TIMES DAILY: FASTING AND BEFORE MEALS cholecalciferol (vitamin D3) 25 mcg PO DAILY 90 days dorzolamide-timolol 22.3-6.8 mg/mL 1 drp ophthalmic (eye) BID dulaglutide (Trulicity) 4.5 mg (0.5 mL) subcut QWEEK 90 days flash glucose sensor (FreeStyle Ye 2 Sensor kit) Use with sensor to monitor blood sugar TID and as needed for s/s hypo/hyperglycemia FreeStyle Ye 2 [place] (flash glucose scanning reader) Use with sensor to monitor blood sugar TID and as needed for s/s hypo/hyperglycemia NS FreeStyle Lite Meter (blood-glucose meter) Use to check blood sugar 4 times daily, fasting and AC NS gabapentin 300 mg PO BEDTIME 30 days ibuprofen 800 mg PO Q8H PRN insulin aspart U-100 (Novolog FlexPen U-100 Insulin aspart) 15 units (0.15 mL) subcut TID 90 days [insulin pen needles 4 times a day] lamotrigine 100 mg PO BID lancets (FreeStyle Lancets) Use to check blood sugar QID, fasting and AC Lantus Solostar U-100 Insulin (insulin glargine) subcutaneously 2 times a day; 50 units at night and 20 units in the morning 90 days NS levothyroxine 50 mcg PO DAILY lidocaine 5% leave on most painful area for up to 12 hrs topically daily; 30 days metoclopramide HCl (Reglan) 10 mg PO Q6H 7 days exndwuhg-ndxvwcrbt-GR 3.5-10,000-1 mg/mL-unit/mL-% 4 drps otic (ear) left Q6H 10 days ondansetron 8 mg PO Q8H 10 days pantoprazole 20 mg PO DAILY polyethylene glycol 3350 (Miralax) 238 grams PO ONCE PRN 1 day Tobacco use date assessed: 05/05/23 Dental Screening Dental Screen Date: 05/05/23 Did you have a dental visit in the last 12 months?: No Did you have a dental problem in the last 6 months where you did not have access to dental care?: No Was dental information given to patient?: Patient has dentist HPI 6m follow up ( meds ) HPI Details Patient is 63-year-old gentleman came in today for his regular follow-up appointment Patient cold-like symptoms few days ago with cough and chest congestion, which has resolved but continued to have pain left ear He was seen in our walk-in clinic for left ear pain and was given ear drops, patient says that drops has not helped On examination I see that he has developed otitis media, I have sent Augmentin for 7 days He is also complaining of pain in the ear and not able to sleep, due to nephropathy I do not think patient should take NSAIDs, I have sent tramadol 50 mg tablet he may take that b.i.d. as needed for pain, 14 tablets sent For nasal congestion I have sent Flonase Patient is now seeing Dr[facility] Blood pressure is stable, it is not clear if Nephrology is managing his blood pressure or not Insulin-dependent diabetes: Due for labs he is taking Lantus to 54 the morning and 20 at night List pro 3 times a day after checking the sugar follow the sliding scale Continue Trulicity Continue to see [facility] for right shoulder pain Continue gabapentin 300 mg that is through PCP office Continue atorvastatin 10 mg for lipid control Continue levothyroxine 50 mcg for hypothyroidism And pantoprazole 20 mg for chronic GERD, symptoms stable. BMI is elevated need to lose weight Follow-up 3 months PFSH Medical History CKD (chronic kidney disease) Diabetes HTN (hypertension) Surgical History Hx of cataract surgery History of surgery on lower extremity History of shoulder surgery Family History Father Diabetes Hypertension Cancer Mother Hypertension Diabetes Social History Housing: House Patient Tobacco Use Status: Never used Tobacco e-Cigarette/Vaping Use: Never Used Current occupational status: disabled Cognitive needs: No Hearing needs: No Vision needs: Yes Questionnaire Thrive Questionnaire Date Thrive assessed: 03/10/23 AUDIT C Alcohol Use Questionnaire (AUDIT-C) 1. How often do you have a drink containing alcohol?: Never 3. How often do you have six or more drinks on one occasion?: Never Total Score: 0 Score Reviewed/Action Taken: Yes AMINATA-7 AMB Questionnaire AMINATA-7 Date AMINATA - 7 assessed: 03/10/23 Source: Developed by Drs. Josiah Bailey, Gema Zimmerman, Brian Jo and colleagues, with an educational lovely from [employer]. Review of Systems Const Denies chills and Denies fever(s) ENT Denies epistaxis and Denies nasal discharge Card Denies chest pain Resp Denies chest congestion, Denies cough and Denies hemoptysis GI Denies diarrhea and Denies nausea Skin/Breast Denies rash Neuro Reports no additional complaints Psych Reports no additional complaints Endo Reports no additional complaints Physical exam (Primary Care) Vital Signs: Last Vital Signs Pulse 87 05/05/23 11:14 BP 116/56 L 05/05/23 11:14 Pulse Ox 97 05/05/23 11:14 Oxygen Delivery Method Room Air 05/05/23 11:14 BMI result Body Mass Index 37.7 Tobacco/Smoking Status: Tobacco use Status Tobacco use date assessed 05/05/23 05/05/23 11:21 Patient Tobacco Use Status Never used Tobacco 05/05/23 11:21 e-Cigarette/Vaping Use Never Used 05/05/23 11:21 Thrive Assessment: Date of Thrive Assessment Date Thrive assessed 03/10/23 05/05/23 11:21 Const General: cooperative, comfortable and no acute distress Orientation/consciousness: patient oriented x3 HENMT Head: Yes normocephalic Eyes General: appearance normal, both eyes and all related structures Neck Neck: Yes supple Resp Effort & Inspection: normal respiratory effort, no cough and no stridor Cardio Rhythm: regular rhythm Heart sounds: S1 normal heart sound present and S2 normal heart sound present Skin General skin exam: turgor normal Neuro General: patient oriented x3, tone normal and moves all extremities Extrem Right lower extremity: no edema Left lower extremity: no edema Assessment and Plan Assessment & Plan (1) Diabetic neuropathy: Code(s): E11.40 - Type 2 diabetes mellitus with diabetic neuropathy, unspecified Qualifiers: Diabetes mellitus complication detail: diabetic autonomic neuropathy Diabetes mellitus type: type 2 Qualified Code(s): E11.43 - Type 2 diabetes mellitus with diabetic autonomic (poly)neuropathy (2) Chronic GERD: Comment: Dietary modifications, opportunity for improvement Code(s): K21.9 - Gastro-esophageal reflux disease without esophagitis (3) Lipid disorder: Code(s): E78.9 - Disorder of lipoprotein metabolism, unspecified (4) Diabetic nephropathy: Code(s): E11.21 - Type 2 diabetes mellitus with diabetic nephropathy Qualifiers: Diabetes mellitus type: type 1 Qualified Code(s): E10.21 - Type 1 diabetes mellitus with diabetic nephropathy (5) Insulin dependent type 1 diabetes mellitus: Code(s): E10.9 - Type 1 diabetes mellitus without complications Qualifiers: Diabetes mellitus complication detail: with diabetic retinopathy Diabetes mellitus complication status: with ophthalmic complications Diabetic retinopathy severity: with proliferative retinopathy Laterality: bilateral Proliferative retinopathy type: stable Qualified Code(s): E10.3553 - Type 1 diabetes mellitus with stable proliferative diabetic retinopathy, bilateral (6) Obesity due to excess calories: Code(s): E66.09 - Other obesity due to excess calories Qualifiers: Body mass index: BMI 38.0-38.9 Obesity classification: adult class 2 (BMI 35 - 39.9) Serious obesity comorbidity presence: with serious comorbidity Qualified Code(s): E66.01 - Morbid (severe) obesity due to excess calories; Z68.38 - Body mass index [BMI] 38.0-38.9, adult (7) BPH (benign prostatic hyperplasia): Code(s): N40.0 - Benign prostatic hyperplasia without lower urinary tract symptoms Qualifiers: Lower urinary tract symptom detail: urinary frequency Lower urinary tract symptom presence: symptoms present Qualified Code(s): N40.1 - Benign prostatic hyperplasia with lower urinary tract symptoms; R35.0 - Frequency of micturition Plan Patient is 63-year-old gentleman came in today for his regular follow-up appointment Patient cold-like symptoms few days ago with cough and chest congestion, which has resolved but continued to have pain left ear He was seen in our walk-in clinic for left ear pain and was given ear drops, patient says that drops has not helped On examination I see that he has developed otitis media, I have sent Augmentin for 7 days He is also complaining of pain in the ear and not able to sleep, due to nephropathy I do not think patient should take NSAIDs, I have sent tramadol 50 mg tablet he may take that b.i.d. as needed for pain, 14 tablets sent For nasal congestion I have sent Flonase Patient is now seeing Dr[facility] Blood pressure is stable, it is not clear if Nephrology is managing his blood pressure or not Insulin-dependent diabetes: Due for labs he is taking Lantus to 54 the morning and 20 at night List pro 3 times a day after checking the sugar follow the sliding scale Continue Trulicity Continue to see [facility] for right shoulder pain Continue gabapentin 300 mg that is through PCP office Continue atorvastatin 10 mg for lipid control Continue levothyroxine 50 mcg for hypothyroidism And pantoprazole 20 mg for chronic GERD, symptoms stable. BMI is elevated need to lose weight Follow-up 3 months Orders: Orders LDL Cholesterol Direct Today E10.9 - Type 1 diabetes mellitus without complications, E11.21 - Type 2 diabetes mellitus with diabetic nephropathy, E11.40 - Type 2 diabetes mellitus with diabetic neuropathy, unspecified, E66.09 - Other obesity due to excess calories, E78.9 - Disorder of lipoprotein metabolism, unspecified, K21.9 - Gastro-esophageal reflux disease without esophagitis, N40.0 - Benign prostatic hyperplasia without lower urinary tract symptoms, Z76.89 - Persons encountering health services in other specified circumstances Hemoglobin A1c Today E10.9 - Type 1 diabetes mellitus without complications, E11.21 - Type 2 diabetes mellitus with diabetic nephropathy, E11.40 - Type 2 diabetes mellitus with diabetic neuropathy, unspecified, E66.09 - Other obesity due to excess calories, E78.9 - Disorder of lipoprotein metabolism, unspecified, K21.9 - Gastro-esophageal reflux disease without esophagitis, N40.0 - Benign prostatic hyperplasia without lower urinary tract symptoms, Z76.89 - Persons encountering health services in other specified circumstances TSH reflex Free T4 Today E10.9 - Type 1 diabetes mellitus without complications, E11.21 - Type 2 diabetes mellitus with diabetic nephropathy, E11.40 - Type 2 diabetes mellitus with diabetic neuropathy, unspecified, E66.09 - Other obesity due to excess calories, E78.9 - Disorder of lipoprotein metabolism, unspecified, K21.9 - Gastro-esophageal reflux disease without esophagitis, N40.0 - Benign prostatic hyperplasia without lower urinary tract symptoms, Z76.89 - Persons encountering health services in other specified circumstances Complete Blood Count Auto Diff Today E10.9 - Type 1 diabetes mellitus without complications, E11.21 - Type 2 diabetes mellitus with diabetic nephropathy, E11.40 - Type 2 diabetes mellitus with diabetic neuropathy, unspecified, E66.09 - Other obesity due to excess calories, E78.9 - Disorder of lipoprotein metabolism, unspecified, K21.9 - Gastro-esophageal reflux disease without esophagitis, N40.0 - Benign prostatic hyperplasia without lower urinary tract symptoms, Z76.89 - Persons encountering health services in other specified circumstances Comprehensive Met. Panel Today E10.9 - Type 1 diabetes mellitus without complications, E11.21 - Type 2 diabetes mellitus with diabetic nephropathy, E11.40 - Type 2 diabetes mellitus with diabetic neuropathy, unspecified, E66.09 - Other obesity due to excess calories, E78.9 - Disorder of lipoprotein metabolism, unspecified, K21.9 - Gastro-esophageal reflux disease without esophagitis, N40.0 - Benign prostatic hyperplasia without lower urinary tract symptoms, Z76.89 - Persons encountering health services in other specified circumstances Microalbumin, Random (w Creat) Today E10.9 - Type 1 diabetes mellitus without complications, E11.21 - Type 2 diabetes mellitus with diabetic nephropathy, E11.40 - Type 2 diabetes mellitus with diabetic neuropathy, unspecified, E66.09 - Other obesity due to excess calories, E78.9 - Disorder of lipoprotein metabolism, unspecified, K21.9 - Gastro-esophageal reflux disease without esophagitis, N40.0 - Benign prostatic hyperplasia without lower urinary tract symptoms, Z76.89 - Persons encountering health services in other specified circumstances Medications: New amoxicillin-pot clavulanate 875-125 mg 1 tab PO BID 14 tabs 0RF Ear infection 7 days fluticasone propionate 50 mcg/actuation (Flonase Allergy Relief) administer into each nostril 1 spray intranasal BID 16 grams 0RF Nasal congestion 10 days tramadol 50 mg PO BID PRN 14 tabs 0RF pain 7 days Discontinued ibuprofen Take with food. Discontinued Reason: Doctor's Order 800 mg PO Q8H PRN 10 tabs 0RF pain Coding Level of Care Code Est Pt Level 4 (71370) Diagnoses Diabetic autonomic neuropathy associated with type 2 diabetes mellitus E11.43 Diabetes mellitus complication detail: diabetic autonomic neuropathy Diabetes mellitus type: type 2 Chronic GERD K21.9 Lipid disorder E78.9 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 E10.21 Diabetes mellitus type: type 1 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 E10.3553 Diabetes mellitus complication detail: with diabetic retinopathy Diabetes mellitus complication status: with ophthalmic complications Diabetic retinopathy severity: with proliferative retinopathy Laterality: bilateral Proliferative retinopathy type: stable Class 2 severe obesity due to excess calories with serious comorbidity and body mass index (BMI) of 38.0 to 38.9 in adult E66.01; Z68.38 Body mass index: BMI 38.0-38.9 Obesity classification: adult class 2 (BMI 35 - 39.9) Serious obesity comorbidity presence: with serious comorbidity Benign prostatic hyperplasia with urinary frequency N40.1; R35.0 Lower urinary tract symptom detail: urinary frequency Lower urinary tract symptom presence: symptoms present
== END 2023-05-05 12:19 | disposition home or self-care (01) ==
PROVIDERS: PCP Internal Medicine; Visit Provider Internal Medicine
DX: E11.43 Type 2 diabetes mellitus with diabetic autonomic (poly)neuropathy (principal); E66.01 Morbid (severe) obesity due to excess calories; Z68.38 Body mass index [BMI] 38.0-38.9, adult; K21.9 Gastro-esophageal reflux disease without esophagitis; E78.9 Disorder of lipoprotein metabolism, unspecified; N40.1 Benign prostatic hyperplasia with lower urinary tract symptoms; R35.0 Frequency of micturition
CPT/HCPCS: 99214

== ENCOUNTER 2023-05-05 11:34 | Outpatient (REF) | payer OTHER, SELFPAY ==
[2023-05-05 13:14] LABS: MANUAL DIFF FLAG NO
[2023-05-05 13:34] LABS: Basophils Percent Auto 0.4 % (0-2); Eosinophils Absolute Auto 0.2 X10*3/uL (0.0-0.4); Eosinophils Percent Auto 2.4 % (0-4); Hematocrit 37.3 % (42.0-52.0); Hemoglobin 12.1 g/dl (14.0-18.0); Imm Gran Abs Auto 0.05 X10*3/uL (0.00-0.03); Imm Gran Pct Auto 0.6 % (0.0-0.4); Lymphocytes Absolute Auto 2.5 X10*3/uL (1.2-4.9); Lymphocytes Percent Auto 31.1 % (20-40); Mean Corpuscular HGB Conc 32.4 g/dl (31.0-36.0); Mean Corpuscular Hemoglobin 29.5 pg (27.0-33.0); Mean Platelet Volume 9.9 fL (9.4-12.4); Monocytes Percent Auto 11.9 % (2-11); Neutrophils Absolute Auto 4.3 x10*3/uL (2.0-8.3); Neutrophils Percent Auto 53.6 % (45-73); Platelet Count 247 X10*3/uL (160-400); Red Cell Distribution Width 13.5 % (11.0-16.0)
[2023-05-05 13:38] LABS: Estimated Average Glucose 171 mg/dL; Hemoglobin A1c % 7.6 % (<6.0)
[2023-05-05 13:45] LABS: Alanine Aminotransferase 15 U/L (0-40); Albumin Level 3.6 g/dL (3.5-5.0); Alkaline Phosphatase 121 U/L (39-117); Anion Gap 10 (12-20); Aspartate Amino Transferase 16 U/L (5-37); Bilirubin Total 0.2 mg/dL (0.0-1.0); Blood Urea Nitrogen 14 mg/dL (9-16); Calcium 8.9 mg/dL (8.4-10.2); Carbon Dioxide 26 mmol/L (22-29); Chloride 107 mmol/L (96-108); Estimated Glomerular Filt Rate 45; Glucose Random 184 mg/dL (60-115); Potassium 4.4 mmol/L (3.3-5.1); Sodium 139 mmol/L (135-145); Total Protein 7.2 g/dL (6.5-8.0)
[2023-05-05 14:00] LABS: PSA,Total (Free>4and<10) 0.99 ng/mL (0.00-4.00)
[2023-05-05 14:02] LABS: TSH reflex Free T4 0.76 uIU/mL (0.32-4.0)
[2023-05-05 14:03] LABS: Creatinine Urine 307.65 mg/dL; Microalbum/Creatinine Ratio Ur 4.8 ug/mg cr (<30)
[2023-05-06 10:29] LABS: LDL Cholesterol Direct 47 mg/dL (<100)
== END 2023-05-05 11:35 | disposition home or self-care (01) ==
LOC: HO.HMGCLDS 11:34
PROVIDERS: Urology; PCP Internal Medicine; Visit Provider Internal Medicine
DX: Z00.01 Encounter for general adult medical examination with abnormal findings (principal); E11.40 Type 2 diabetes mellitus with diabetic neuropathy, unspecified; E11.21 Type 2 diabetes mellitus with diabetic nephropathy; N40.1 Benign prostatic hyperplasia with lower urinary tract symptoms; R35.1 Nocturia; E78.9 Disorder of lipoprotein metabolism, unspecified; K21.9 Gastro-esophageal reflux disease without esophagitis; E66.09 Other obesity due to excess calories; M53.3 Sacrococcygeal disorders, not elsewhere classified; M47.816 Spondylosis without myelopathy or radiculopathy, lumbar region; Z76.89 Persons encountering health services in other specified circumstances
CPT/HCPCS: 36415; 80053; 82043; 82570; 83036; 83721; 84153; 84443; 85025

== ENCOUNTER 2023-05-13 11:17 | Outpatient (REF) | payer OTHER, SELFPAY | END 2023-05-13 11:18 | disposition home or self-care (01) | LOC: HO.US 11:17 | PROVIDERS: PCP Internal Medicine; Visit Provider Urology | DX: Z13.89 Encounter for screening for other disorder (principal) ==

== ENCOUNTER 2023-05-17 11:15 | Outpatient (AMB) | payer OTHER, SELFPAY ==
--- NOTE | 2023-05-17 12:13 | A.OFFVIS_ITS ---
Intake Intake Visit Reasons: 2m/US Intake Note: Patient presents today for a follow-up Meds- None Allergies to Antibiotic- No Known Allergies Blood Thinner- Aspirin Labor Gang Supervisor Required: No Allergies No Known Allergies Allergy (Verified 05/17/23 12:19) HPI HPI Comments History of Present Illness Details 05/17/2023-- 63-year-old male who present s today to the office for follow-up and review of kidney ultrasound results. I have reviewed the kidney ultrasound results negative for stones or masses. The patient states that the bladder portion of the ultrasound was not done because he was told his bladder was not full enough and has been rescheduled. I have discussed a trial of an alpha ruba, however the patient states his symptoms are not too bothersome and will wait on starting another med. I have reviewed the PSA results 0.99 ng/mL Review of chart: 01/29/2023 -- He was referred by his primary care physician with a concern regarding urinary frequency and nocturia. His past medical history, significant for insulin dependent diabetes mellitus, diabetic retinopathy and chronic kidney disease followed by nephrology. He complained of dizziness during evaluation, stated he did not eat yet today but had a coffee in the morning. After several minutes he stated he felt better. A blood pressure was checked that was 127/70 mmHg. He is not sure of FH of cancer. He wakes two to 3 times during night for micturition that he states is not bothersome. He denies hematuria or irritative voiding symptoms. Evaluation today?UA-- 01/29/2023 ? Bladder scan PVR: 13 ml. Plan - Ultrasound Retroperitoneum prior was ordered. PSA. FU in 10 weeks 05/17/23--Plan Bladder ultrasound pending Follow-up in 6 months monitor PVR [facility] Medical History CKD (chronic kidney disease) Diabetes HTN (hypertension) Surgical History Hx of cataract surgery History of surgery on lower extremity History of shoulder surgery Family History Father Diabetes Hypertension Cancer Mother Hypertension Diabetes Social History Housing: House Patient Tobacco Use Status: Never used Tobacco e-Cigarette/Vaping Use: Never Used Current occupational status: disabled Cognitive needs: No Hearing needs: No Vision needs: Yes Review of Systems Const All systems reviewed & are unremarkable except as noted in HPI and below Reports no additional complaints Eyes Reports no additional complaints ENT Reports no additional complaints Card Reports no additional complaints Resp Reports no additional complaints GI Reports no additional complaints Musc Reports no additional complaints Skin/Breast Reports system reviewed and no additional complaints, except as documented Neuro Reports no additional complaints Psych Reports no additional complaints Endo Reports no additional complaints Saurabh/Lymph Reports no additional complaints Aller/Immun Reports no additional complaints Results AMB Urinalysis, Automated UA Leukoctes 0 Bradley/uL Last Edit by Mague Rogers CMA on 05/17/23 12 :28 UA Nitrite Negative Last Edit by Mague Rogers CMA on 05/17/23 12: 28 UA Urobilinogen 0.2 mg/dL Last Edit by Mague Rogers CMA on 4 12:28 UA Protein 15 mg/dL Last Edit by Mague Rogers CMA on 05/17/23 12:2 8 UA pH 6.0 Last Edit by Mague Rogers CMA on 05/17/23 12:28 UA Blood 0 Alexandro/uL Last Edit by Mague Rogers CMA on 05/17/23 12:28 UA Specific [place] 1.020 Last Edit by Mague Rogers CMA on 12:28 UA Ketone Negative Last Edit by Mague Rogers CMA on 05/17/23 12:2 8 UA Bilirubin 0 mg/dL Last Edit by Mague Rogers CMA on 05/17/23 12: 28 UA Glucose 0 mg/dL Last Edit by Mague Rogers CMA on 05/17/23 12:28 Results Reviewed Results Reviewed: Laboratory Last Values Urine pH (Auto) 6.0 05/17/23 12: Specific [place] (Auto) 1.020 05/17/23 12: Urine Protein (Auto) 15 mg/dL 05/17/23 12: Glucose (UA)(Auto) 0 mg/dL 05/17/23 12: Urine Ketones (Auto) Negative 05/17/23 12: Urine Blood (Auto) 0 Alexandro/uL 05/17/23 12: Urine Nitrite (Auto) Negative 05/17/23 12:26 Urine Bilirubin (Auto) 0 mg/dL 05/17/23 12: Urine Urobilinogen (Auto) 0.2 mg/dL 05/17/23 12: Leukocyte Esterase (Auto) 0 Bradley/uL 05/17/23 12:26 Date of Service: 04/30/23 Procedure(s): US renal BI Accession Number(s): [id number] cc: Donavon Cobian MD; Shawn Johnson MD~ EXAMINATION: US RETROPERITONEAL LIMITED (RENAL ONLY) CLINICAL INFORMATION: Frequency of micturition. Try to estimate prostate volume. COMPARISON: None available. TECHNIQUE: Real-time imaging of the kidneys. FINDINGS: RIGHT KIDNEY: 9.8 x 4.9 x 4.6 cm (SAG x AP x TRV). The kidney is normal in size, contour, and echogenicity. Renal cortical thickness is normal. No calculi or focal parenchymal lesions. No hydronephrosis. LEFT KIDNEY: 10.1 x 5.0 x 6.0 cm (SAG x AP x TRV). The kidney is normal in size, contour, and echogenicity. Renal cortical thickness is normal. No calculi or focal parenchymal lesions. No hydronephrosis. US/US renal BI IMPRESSION: No significant sonographic abnormality in the kidneys. Assessment & Plan Assessment & Plan (1) Frequency of micturition: Code(s): R35.0 - Frequency of micturition (2) Screening PSA (prostate specific antigen): Code(s): Z12.5 - Encounter for screening for malignant neoplasm of prostate (3) Nocturia: Code(s): R35.1 - Nocturia (4) BPH (benign prostatic hyperplasia): Code(s): N40.0 - Benign prostatic hyperplasia without lower urinary tract symptoms Qualifiers: Lower urinary tract symptom presence: symptoms present Lower urinary tract symptom detail: urinary frequency Qualified Code(s): N40.1 - Benign prostatic hyperplasia with lower urinary tract symptoms; R35.0 - Frequency of micturition Plan Bladder ultrasound pending Follow-up in 6 months monitor PVR Orders: Orders AMB Urinalysis Automated Today R33.9 - Retention of urine, unspecified Patient Instructions: The patient had an opportunity to ask questions regarding treatment plan. All questions were answered. Imaging, Laboratory studies and physical exam results were discussed and reviewed in detail. No major barriers to understanding were identified. The patient expressed understanding and agreement with the above treatment plan. The patient is aware they should contact our office by phone for worsening of their current condition or the appearance of new symptoms. Compliance is encouraged with any medications and followup testing that is ordered. It is a privilege to be allowed the opportunity to participate in the urologic care of your patient. If you have any questions or concerns regarding treatment for the above conditions please do not hesitate to contact me. The office telephone contact is [phone]. This note is constructed in part using voice recognition software. While every effort has been made to ensure accuracy digitizer operator errors may have been included. Yours sincerely, Donavon Cobian MD Coding Level of Care Code Est Pt Level 3 (11796) Diagnoses Frequency of micturition R35.0 Screening PSA (prostate specific antigen) Z12.5 Nocturia R35.1 Benign prostatic hyperplasia with urinary frequency N40.1; R35.0 Lower urinary tract symptom presence: symptoms present Lower urinary tract symptom detail: urinary frequency
== END 2023-05-17 12:29 | disposition home or self-care (01) ==
PROVIDERS: PCP Internal Medicine; Visit Provider Urology
DX: N40.1 Benign prostatic hyperplasia with lower urinary tract symptoms (principal); R35.0 Frequency of micturition; R35.1 Nocturia; R33.9 Retention of urine, unspecified
CPT/HCPCS: 99213

== ENCOUNTER 2023-05-17 13:02 | Outpatient (REF) | payer OTHER, SELFPAY ==
--- NOTE | ~2023-05-17 | US_ITS ---
EXAMINATION: US PELVIS LIMITED (BLADDER) CLINICAL INFORMATION: Frequency of micturition. COMPARISON: Renal ultrasound 04/30/2023. TECHNIQUE: Real-time imaging of the bladder. Limited visualization due to bowel gas. FINDINGS: BLADDER: Well-distended. Bilateral ureteral jets are demonstrated. Prevoid bladder volume is 166 mL. Postvoid bladder volume is 16.4 mL. The prostate volume is 20.8 mL. US/US bladder IMPRESSION: Postvoid bladder volume is 16.4 mL.
== END 2023-05-17 13:03 | disposition home or self-care (01) ==
LOC: HO.US 13:02
PROVIDERS: PCP Internal Medicine; Visit Provider Urology
DX: N40.1 Benign prostatic hyperplasia with lower urinary tract symptoms (principal); N13.8 Other obstructive and reflux uropathy; R35.0 Frequency of micturition; R35.1 Nocturia; E11.69 Type 2 diabetes mellitus with other specified complication; I12.9 Hypertensive chronic kidney disease with stage 1 through stage 4 chronic kidney disease, or unspecified chronic kidney disease; N18.9 Chronic kidney disease, unspecified; Z12.5 Encounter for screening for malignant neoplasm of prostate
CPT/HCPCS: 76857; 81003; 99212

== ENCOUNTER 2023-05-19 10:25 | Outpatient (AMB) | payer OTHER, SELFPAY ==
--- NOTE | 2023-05-19 10:34 | MHC.PC.OV ---
Vital Signs 05/19/23 10:35 Height 5 ft 7 in Weight 243 lb BMI 38.1 BP 118/62 Blood Pressure Location Lt brachial Position Sitting Pulse 82 Pulse Source Pulse Oximeter Pulse Oximetry (%) 99 Oxygen Delivery Method Room Air Intake Visit Reasons: followup ear pain Allergies No Known Allergies Allergy (Verified 05/19/23 10:35) Medication List - Last Reconciled 05/19/23 by Shawn Johnson MD amlodipine-benazepril 10-20 mg 1 cap PO DAILY aspirin (Adult Low Dose Aspirin) 81 mg PO DAILY atorvastatin 10 mg PO BEDTIME benzonatate 100 mg PO TID PRN bisacodyl (Dulcolax (bisacodyl)) 20 mg (4 x 5 mg) PO ONCE 1 day blood sugar diagnostic (FreeStyle Lite Strips) USE TO CHECK BLOOD SUGAR 3 TIMES DAILY: FASTING AND BEFORE MEALS cholecalciferol (vitamin D3) 25 mcg PO DAILY 90 days dorzolamide-timolol 22.3-6.8 mg/mL 1 drp ophthalmic (eye) BID dulaglutide (Trulicity) 4.5 mg (0.5 mL) subcut QWEEK 90 days flash glucose sensor (FreeStyle Ye 2 Sensor kit) Use with sensor to monitor blood sugar TID and as needed for s/s hypo/hyperglycemia fluticasone propionate 50 mcg/actuation (Flonase Allergy Relief) 1 spray intranasal BID 10 days FreeStyle Ye 2 [place] (flash glucose scanning reader) Use with sensor to monitor blood sugar TID and as needed for s/s hypo/hyperglycemia NS FreeStyle Lite Meter (blood-glucose meter) Use to check blood sugar 4 times daily, fasting and AC NS gabapentin 300 mg PO BEDTIME 30 days insulin aspart U-100 (Novolog FlexPen U-100 Insulin aspart) 15 units (0.15 mL) subcut TID 90 days [insulin pen needles 4 times a day] lamotrigine 100 mg PO BID lancets (FreeStyle Lancets) Use to check blood sugar QID, fasting and AC Lantus Solostar U-100 Insulin (insulin glargine) subcutaneously 2 times a day; 50 units at night and 20 units in the morning 90 days NS levothyroxine 50 mcg PO DAILY lidocaine 5% leave on most painful area for up to 12 hrs topically daily; 30 days metoclopramide HCl (Reglan) 10 mg PO Q6H 7 days utnnkfod-pgmznxldy-QS 3.5-10,000-1 mg/mL-unit/mL-% 4 drps otic (ear) left Q6H 10 days ondansetron 8 mg PO Q8H 10 days pantoprazole 20 mg PO DAILY polyethylene glycol 3350 (Miralax) 238 grams PO ONCE PRN 1 day tramadol 50 mg PO BID PRN 7 days Tobacco use date assessed: 05/19/23 Dental Screening Dental Screen Date: 05/19/23 Did you have a dental visit in the last 12 months?: Yes Did you have a dental problem in the last 6 months where you did not have access to dental care?: No Was dental information given to patient?: Patient has dentist HPI followup ear pain HPI Details Patient continued to have feeling of blocked ears bilateral left more than On examination he does not have any cerumen I do not feel that patient have infection either However his tympanic membrane are hazy both sides I have placed a referral for him to be evaluated by nuclear equipment test engineer Meanwhile I have sent Sudafed green once a day for 5 days to clear the water behind his tympanic membranes He has no fever no chills no sore throat no cough PFSH Medical History CKD (chronic kidney disease) Diabetes HTN (hypertension) Surgical History Hx of cataract surgery History of surgery on lower extremity History of shoulder surgery Family History Father Diabetes Hypertension Cancer Mother Hypertension Diabetes Social History Housing: House Patient Tobacco Use Status: Never used Tobacco e-Cigarette/Vaping Use: Never Used Current occupational status: disabled Cognitive needs: No Hearing needs: No Vision needs: Yes Questionnaire Thrive Questionnaire Date Thrive assessed: 03/10/23 AUDIT C Alcohol Use Questionnaire (AUDIT-C) 1. How often do you have a drink containing alcohol?: Never 3. How often do you have six or more drinks on one occasion?: Never Total Score: 0 Score Reviewed/Action Taken: Yes AMINATA-7 AMB Questionnaire AMINATA-7 Date AMINATA - 7 assessed: 03/10/23 Source: Developed by DrsPierre Bailey, Gema Zimmerman, Brian Jo and colleagues, with an educational lovely from [employer]. Review of Systems Const All systems reviewed & are unremarkable except as noted in HPI and below Physical exam (Primary Care) Vital Signs: Last Vital Signs Pulse 82 05/19/23 10:35 BP 118/62 05/19/23 10:35 Pulse Ox 99 05/19/23 10:35 Oxygen Delivery Method Room Air 05/19/23 10:35 BMI result Body Mass Index 38.1 Tobacco/Smoking Status: Tobacco use Status Tobacco use date assessed 05/19/23 05/19/23 10:37 Patient Tobacco Use Status Never used Tobacco 05/19/23 10:37 e-Cigarette/Vaping Use Never Used 05/19/23 10:37 Thrive Assessment: Date of Thrive Assessment Date Thrive assessed 03/10/23 05/19/23 10:37 Const General: no acute distress Orientation/consciousness: patient oriented x3 HENMT Other: No pain with tragus pressure, both tympanic membranes hazy, no cerumen no signs of infection Eyes General: appearance normal, both eyes and all related structures Resp Effort & Inspection: normal respiratory effort and able to speak in complete sentences Auscultation: clear to auscultation bilaterally Neuro General: patient oriented x3 Psych Mental Status: mental status grossly normal Assessment and Plan Assessment & Plan (1) Blocked ear: Code(s): H93.8X9 - Other specified disorders of ear, unspecified ear Qualifiers: Laterality: bilateral Qualified Code(s): H93.8X3 - Other specified disorders of ear, bilateral Plan Patient continued to have feeling of blocked ears bilateral left more than On examination he does not have any cerumen I do not feel that patient have infection either However his tympanic membrane are hazy both sides I have placed a referral for him to be evaluated by nuclear equipment test engineer Meanwhile I have sent Sudafed green once a day for 5 days to clear the water behind his tympanic membranes He has no fever no chills no sore throat no cough Orders: Referrals Ear/Nose/Throat Referral H93.8X9 - Other specified disorders of ear, unspecified ear Medications: New pseudoephedrine HCl ER (Sudafed 12 Hour) 120 mg PO .q am 5 tabs 0RF nasal congestion 5 days Coding Level of Care Code Est Pt Level 3 (63169) Diagnoses Sensation of plugged ear on both sides H93.8X3 Laterality: bilateral
[2023-05-19 10:35] VITALS: BP 118/62; PULSE 82; O2SAT 99; BMI 38.1
== END 2023-05-19 11:49 | disposition home or self-care (01) ==
PROVIDERS: PCP Internal Medicine; Visit Provider Internal Medicine
DX: H93.8X3 Other specified disorders of ear, bilateral (principal)
CPT/HCPCS: 99213

== ENCOUNTER 2023-08-04 11:48 | Outpatient (AMB) | payer OTHER, SELFPAY ==
[2023-08-04 11:53] VITALS: BP 114/56; PULSE 80; O2SAT 96; BMI 38.9
--- NOTE | 2023-08-04 11:53 | MHC.PC.OV ---
Vital Signs 08/04/23 11:53 Height 5 ft 7 in Weight 248 lb 8 oz BMI 38.9 BP 114/56 L Blood Pressure Location Rt brachial Position Sitting Pulse 80 Pulse Source Pulse Oximeter Pulse Oximetry (%) 96 Oxygen Delivery Method Room Air Intake Visit Reasons: 9m follow up Allergies No Known Allergies Allergy (Verified 08/04/23 11:56) Medication List - Last Reconciled 08/04/23 by Shawn Johnson MD amlodipine-benazepril 10-20 mg 1 cap PO DAILY aspirin (Adult Low Dose Aspirin) 81 mg PO DAILY atorvastatin 10 mg PO BEDTIME bisacodyl (Dulcolax (bisacodyl)) 20 mg (4 x 5 mg) PO ONCE 1 day blood sugar diagnostic (FreeStyle Lite Strips) USE TO CHECK BLOOD SUGAR 3 TIMES DAILY: FASTING AND BEFORE MEALS cholecalciferol (vitamin D3) 25 mcg PO DAILY 90 days dorzolamide-timolol 22.3-6.8 mg/mL 1 drp ophthalmic (eye) BID dulaglutide (Trulicity) 4.5 mg (0.5 mL) subcut QWEEK 90 days flash glucose sensor (FreeStyle Ye 2 Sensor kit) Use with sensor to monitor blood sugar TID and as needed for s/s hypo/hyperglycemia fluticasone propionate 50 mcg/actuation (Flonase Allergy Relief) 1 spray intranasal BID 10 days FreeStyle Ye 2 [place] (flash glucose scanning reader) Use with sensor to monitor blood sugar TID and as needed for s/s hypo/hyperglycemia NS FreeStyle Lite Meter (blood-glucose meter) Use to check blood sugar 4 times daily, fasting and AC NS gabapentin 300 mg PO BEDTIME 30 days insulin aspart U-100 (Novolog FlexPen U-100 Insulin aspart) 15 units (0.15 mL) subcut TID 90 days [insulin pen needles 4 times a day] lamotrigine 100 mg PO BID lancets (FreeStyle Lancets) Use to check blood sugar QID, fasting and AC Lantus Solostar U-100 Insulin (insulin glargine) subcutaneously 2 times a day; 50 units at night and 20 units in the morning 90 days NS levothyroxine 50 mcg PO DAILY metoclopramide HCl (Reglan) 10 mg PO Q6H 7 days ondansetron 8 mg PO Q8H 10 days pantoprazole 20 mg PO DAILY polyethylene glycol 3350 (Miralax) 238 grams PO ONCE PRN 1 day pseudoephedrine HCl ER (Sudafed 12 Hour) 120 mg PO .q am 5 days tramadol 50 mg PO BID PRN 7 days Tobacco use date assessed: 08/04/23 Dental Screening Dental Screen Date: 08/04/23 Did you have a dental visit in the last 12 months?: Yes Did you have a dental problem in the last 6 months where you did not have access to dental care?: No Was dental information given to patient?: Patient has dentist HPI 9m follow up HPI Details Patient is 63-year-old gentleman came in today for his regular follow-up appointment Patient is complaining of swelling both ankles especially at the end of the day and his legs hurt Patient is diabetic, it seems as if he has peripheral vascular disease He has not seen vascular specialist in the past, referral placed for further evaluation 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 Blood pressure is stable, it is not clear if Nephrology is managing his blood pressure or not Insulin-dependent diabetes: he is taking Lantus to 54 the morning and 20 at night Lispro insulin 3 times a day after checking the sugar follow the sliding scale Continue Trulicity Continue to see Pain Management [facility] for right shoulder pain Continue gabapentin 300 mg that is through PCP office Continue atorvastatin 10 mg for lipid control Continue levothyroxine 50 mcg for hypothyroidism And pantoprazole 20 mg for chronic GERD, symptoms stable. BMI is elevated need to lose weight Follow-up early October labs are needed before visit [facility] Medical History Hypothyroid Glaucoma Chronic SI joint pain Lumbar radiculopathy Neuropathy BPH (benign prostatic hyperplasia) Elevated cholesterol GERD (gastroesophageal reflux disease) CKD (chronic kidney disease) Diabetes HTN (hypertension) Surgical History Hx of cataract surgery History of surgery on lower extremity History of shoulder surgery Family History Father Diabetes Hypertension Cancer Mother Hypertension Diabetes Social History Housing: House Patient Tobacco Use Status: Never used Tobacco e-Cigarette/Vaping Use: Never Used Current occupational status: disabled Cognitive needs: No Hearing needs: No Vision needs: Yes Questionnaire PHQ-9 Over the last 2 weeks, how often have you been bothered by any of the following problems? 1. Little interest or pleasure in doing things: not at all 2. Feeling down, depressed, or hopeless: not at all 3. Trouble falling or staying asleep, or sleeping too much: not at all 4. Feeling tired or having little energy: not at all 5. Poor appetite or overeating: not at all 6. Feeling bad about yourself - or that you are a failure or have let yourself or your family down: not at all 7. Trouble concentrating on things, such as reading the newspaper or watching television: not at all 8. Moving or speaking so slowly that other people could have noticed. Or the opposite - being so fidgety or restless that you have been moving around a lot more than usual: not at all 9. Thoughts that you would be better off or of hurting yourself in some way: not at all Total score: 0 Depression Screening Interpretation: Negative Depression Screening Done: Yes 28429 - PHQ-9 Billing: Yes Source: Developed by Drs. Josiah Bailey, Gema Zimmerman, Brian Jo and colleagues, with an educational lovely from [employer]. Thrive Questionnaire Date Thrive assessed: 08/04/23 I am a: Patient What is your living situation today?: I have a steady place to live Within the past 12 months, did the food you bought not last and you didn't have the money to get more?: Never true Within the past 12 months, did you worry whether your food would run out before you got money to buy more?: Never true Do you have trouble paying for medicines?: No Do you have trouble getting transportation to medical appointments?: No Do you have trouble paying your heating and electricity bill?: No Do you have trouble taking care of your child, family member or friend?: No Do you have trouble with day-to-day activities such as bathing, preparing meals, shopping, managing finances, etc.?: No Are you currently unemployed and looking for a job?: No Are you interested in more education?: No Please select the resources that you would like help with: None Currently or been in a relationship where the following occur: I choose not to answer this question THRIVE Score: 0 AUDIT C Alcohol Use Questionnaire (AUDIT-C) 1. How often do you have a drink containing alcohol?: Never 3. How often do you have six or more drinks on one occasion?: Never Total Score: 0 Score Reviewed/Action Taken: Yes AMINATA-7 AMB Questionnaire AMINATA-7 Date AMINATA - 7 assessed: 08/04/23 Feeling nervous, anxious, or on edge: 0 = Not at all Not being able to stop or control worryin = Not at all Worrying too much about different things: 0 = Not at all Trouble relaxin = Not at all Being so restless that it is hard to sit still: 0 = Not at all Becoming easily annoyed or irritable: 0 = Not at all Feeling afraid as if something awful might happen: 0 = Not at all Total AMINATA-7 score (0-4 normal; 5-9 mild; 10-14 moderate; 15-21 severe): 0 Source: Developed by Drs. Josiah Bailey, Gema Zimmerman, Brian Jo and colleagues, with an educational lovely from [employer]. AMINATA-7 Assessment Billing AMINATA-7 Assessment Tool: AMINATA-7 Assessment 74385 Review of Systems Const Denies chills and Denies fever(s) ENT Denies epistaxis and Denies nasal discharge Card Denies chest pain Resp Denies chest congestion, Denies cough and Denies hemoptysis GI Denies diarrhea and Denies nausea Skin/Breast Denies rash Neuro Reports no additional complaints Psych Reports no additional complaints Endo Reports no additional complaints Physical exam (Primary Care) Vital Signs: Last Vital Signs Pulse 80 08/04/23 11:53 BP 114/56 L 08/04/23 11:53 Pulse Ox 96 08/04/23 11:53 Oxygen Delivery Method Room Air 08/04/23 11:53 BMI result Body Mass Index 38.9 Tobacco/Smoking Status: Tobacco use Status Tobacco use date assessed 08/04/23 08/04/23 11:58 Patient Tobacco Use Status Never used Tobacco 08/04/23 11:58 e-Cigarette/Vaping Use Never Used 08/04/23 11:58 PHQ-9: PHQ-9 Score PHQ-9: Total score 0 08/04/23 12:28 Depression Screening Interpretation: Negative Thrive Assessment: Date of Thrive Assessment Date Thrive assessed 08/04/23 08/04/23 12:07 Currently or been in a relationship where the following occur: I choose not to answer this question Const General: cooperative, comfortable and no acute distress Orientation/consciousness: patient oriented x3 HENMT Head: Yes normocephalic Eyes General: appearance normal, both eyes and all related structures Neck Neck: Yes supple Resp Effort & Inspection: normal respiratory effort, no cough and no stridor Cardio Rhythm: regular rhythm Heart sounds: S1 normal heart sound present and S2 normal heart sound present Skin General skin exam: turgor normal Neuro General: patient oriented x3, tone normal and moves all extremities Extrem Other: Minimal pitting edema both ankles Assessment and Plan Assessment & Plan (1) Insulin dependent type 1 diabetes mellitus: Code(s): E10.9 - Type 1 diabetes mellitus without complications Qualifiers: Diabetes mellitus complication detail: with diabetic retinopathy Diabetes mellitus complication status: with ophthalmic complications Diabetic retinopathy severity: with proliferative retinopathy Laterality: bilateral Proliferative retinopathy type: stable Qualified Code(s): E10.3553 - Type 1 diabetes mellitus with stable proliferative diabetic retinopathy, bilateral (2) Hypertension, essential: Code(s): I10 - Essential (primary) hypertension (3) Diabetic nephropathy: Code(s): E11.21 - Type 2 diabetes mellitus with diabetic nephropathy Qualifiers: Diabetes mellitus type: type 1 Qualified Code(s): E10.21 - Type 1 diabetes mellitus with diabetic nephropathy (4) Peripheral vascular disease: Code(s): I73.9 - Peripheral vascular disease, unspecified (5) Lumbar radiculopathy: Code(s): M54.16 - Radiculopathy, lumbar region (6) Lipid disorder: Code(s): E78.9 - Disorder of lipoprotein metabolism, unspecified (7) Diabetic neuropathy: Code(s): E11.40 - Type 2 diabetes mellitus with diabetic neuropathy, unspecified Qualifiers: Diabetes mellitus complication detail: diabetic autonomic neuropathy Diabetes mellitus type: type 2 Qualified Code(s): E11.43 - Type 2 diabetes mellitus with diabetic autonomic (poly)neuropathy (8) Paresthesia of both feet: Code(s): R20.2 - Paresthesia of skin (9) Obesity due to excess calories: Code(s): E66.09 - Other obesity due to excess calories Qualifiers: Body mass index: BMI 38.0-38.9 Obesity classification: adult class 2 (BMI 35 - 39.9) Serious obesity comorbidity presence: with serious comorbidity Qualified Code(s): E66.01 - Morbid (severe) obesity due to excess calories; Z68.38 - Body mass index [BMI] 38.0-38.9, adult (10) Chronic GERD: Comment: Dietary modifications, opportunity for improvement Code(s): K21.9 - Gastro-esophageal reflux disease without esophagitis (11) Polyarthritis: Code(s): M13.0 - Polyarthritis, unspecified (12) BPH (benign prostatic hyperplasia): Code(s): N40.0 - Benign prostatic hyperplasia without lower urinary tract symptoms Qualifiers: Lower urinary tract symptom detail: urinary frequency Lower urinary tract symptom presence: symptoms present Qualified Code(s): N40.1 - Benign prostatic hyperplasia with lower urinary tract symptoms; R35.0 - Frequency of micturition (13) Pain management: Code(s): R52 - Pain, unspecified Plan Patient is 63-year-old gentleman came in today for his regular follow-up appointment Patient is complaining of swelling both ankles especially at the end of the day and his legs hurt Patient is diabetic, it seems as if he has peripheral vascular disease He has not seen vascular specialist in the past, referral placed for further evaluation 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 Blood pressure is stable, it is not clear if Nephrology is managing his blood pressure or not Insulin-dependent diabetes: he is taking Lantus to 54 the morning and 20 at night Lispro insulin 3 times a day after checking the sugar follow the sliding scale Continue [place] Continue to see Pain Management [facility] for right shoulder pain Continue gabapentin 300 mg that is through PCP office Continue atorvastatin 10 mg for lipid control Continue levothyroxine 50 mcg for hypothyroidism And pantoprazole 20 mg for chronic GERD, symptoms stable. BMI is elevated need to lose weight Follow-up early October labs are needed before visit 45 minutes spent in care of this patient, including [id number] discussing medical issues Reviewing chart, ordering labs, pain management, charting, coordination of care Orders: Orders Vitamin D 25-OH (D2 and D3) 2 Months E10.21 - Type 1 diabetes mellitus with diabetic nephropathy, E10.3553 - Type 1 diabetes mellitus with stable proliferative diabetic retinopathy, bilateral, E11.43 - Type 2 diabetes mellitus with diabetic autonomic (poly)neuropathy, E66.01 - Morbid (severe) obesity due to excess calories, E78.9 - Disorder of lipoprotein metabolism, unspecified, I73.9 - Peripheral vascular disease, unspecified, K21.9 - Gastro-esophageal reflux disease without esophagitis, M13.0 - Polyarthritis, unspecified, M54.16 - Radiculopathy, lumbar region, R20.2 - Paresthesia of skin, Z68.38 - Body mass index [BMI] 38.0-38.9, adult Complete Blood Count Auto Diff 2 Months E10.21 - Type 1 diabetes mellitus with diabetic nephropathy, E10.3553 - Type 1 diabetes mellitus with stable proliferative diabetic retinopathy, bilateral, E11.43 - Type 2 diabetes mellitus with diabetic autonomic (poly)neuropathy, E66.01 - Morbid (severe) obesity due to excess calories, E78.9 - Disorder of lipoprotein metabolism, unspecified, I73.9 - Peripheral vascular disease, unspecified, K21.9 - Gastro-esophageal reflux disease without esophagitis, M13.0 - Polyarthritis, unspecified, M54.16 - Radiculopathy, lumbar region, R20.2 - Paresthesia of skin, Z68.38 - Body mass index [BMI] 38.0-38.9, adult Comprehensive [place]. Panel Fast 2 Months E10.21 - Type 1 diabetes mellitus with diabetic nephropathy, E10.3553 - Type 1 diabetes mellitus with stable proliferative diabetic retinopathy, bilateral, E11.43 - Type 2 diabetes mellitus with diabetic autonomic (poly)neuropathy, E66.01 - Morbid (severe) obesity due to excess calories, E78.9 - Disorder of lipoprotein metabolism, unspecified, I73.9 - Peripheral vascular disease, unspecified, K21.9 - Gastro-esophageal reflux disease without esophagitis, M13.0 - Polyarthritis, unspecified, M54.16 - Radiculopathy, lumbar region, R20.2 - Paresthesia of skin, Z68.38 - Body mass index [BMI] 38.0-38.9, adult Hemoglobin A1c 2 Months E10.21 - Type 1 diabetes mellitus with diabetic nephropathy, E10.3553 - Type 1 diabetes mellitus with stable proliferative diabetic retinopathy, bilateral, E11.43 - Type 2 diabetes mellitus with diabetic autonomic (poly)neuropathy, E66.01 - Morbid (severe) obesity due to excess calories, E78.9 - Disorder of lipoprotein metabolism, unspecified, I73.9 - Peripheral vascular disease, unspecified, K21.9 - Gastro-esophageal reflux disease without esophagitis, M13.0 - Polyarthritis, unspecified, M54.16 - Radiculopathy, lumbar region, R20.2 - Paresthesia of skin, Z68.38 - Body mass index [BMI] 38.0-38.9, adult Lipid Panel 2 Months E10.21 - Type 1 diabetes mellitus with diabetic nephropathy, E10.3553 - Type 1 diabetes mellitus with stable proliferative diabetic retinopathy, bilateral, E11.43 - Type 2 diabetes mellitus with diabetic autonomic (poly)neuropathy, E66.01 - Morbid (severe) obesity due to excess calories, E78.9 - Disorder of lipoprotein metabolism, unspecified, I73.9 - Peripheral vascular disease, unspecified, K21.9 - Gastro-esophageal reflux disease without esophagitis, M13.0 - Polyarthritis, unspecified, M54.16 - Radiculopathy, lumbar region, R20.2 - Paresthesia of skin, Z68.38 - Body mass index [BMI] 38.0-38.9, adult TSH reflex Free T4 2 Months E10.21 - Type 1 diabetes mellitus with diabetic nephropathy, E10.3553 - Type 1 diabetes mellitus with stable proliferative diabetic retinopathy, bilateral, E11.43 - Type 2 diabetes mellitus with diabetic autonomic (poly)neuropathy, E66.01 - Morbid (severe) obesity due to excess calories, E78.9 - Disorder of lipoprotein metabolism, unspecified, I73.9 - Peripheral vascular disease, unspecified, K21.9 - Gastro-esophageal reflux disease without esophagitis, M13.0 - Polyarthritis, unspecified, M54.16 - Radiculopathy, lumbar region, R20.2 - Paresthesia of skin, Z68.38 - Body mass index [BMI] 38.0-38.9, adult Referrals Vascular Surgery Referral I73.9 - Peripheral vascular disease, unspecified Medications: New cholecalciferol (vitamin D3) 25 mcg PO DAILY 90 caps 1RF 90 days Changed From tramadol 50 mg PO BID 7 days PRN 14 tabs 0RF pain To tramadol 50 mg PO BID PRN 60 tabs 0RF pain 30 days Coding Level of Care Code Est Pt Level 5 (63991) Diagnoses 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 E10.3553 Diabetes mellitus complication detail: with diabetic retinopathy Diabetes mellitus complication status: with ophthalmic complications Diabetic retinopathy severity: with proliferative retinopathy Laterality: bilateral Proliferative retinopathy type: stable Hypertension, essential I10 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 E10.21 Diabetes mellitus type: type 1 Peripheral vascular disease I73.9 Lumbar radiculopathy M54.16 Lipid disorder E78.9 Diabetic autonomic neuropathy associated with type 2 diabetes mellitus E11.43 Diabetes mellitus complication detail: diabetic autonomic neuropathy Diabetes mellitus type: type 2 Paresthesia of both feet R20.2 Class 2 severe obesity due to excess calories with serious comorbidity and body mass index (BMI) of 38.0 to 38.9 in adult E66.01; Z68.38 Body mass index: BMI 38.0-38.9 Obesity classification: adult class 2 (BMI 35 - 39.9) Serious obesity comorbidity presence: with serious comorbidity Chronic GERD K21.9 Polyarthritis M13.0 Benign prostatic hyperplasia with urinary frequency N40.1; R35.0 Lower urinary tract symptom detail: urinary frequency Lower urinary tract symptom presence: symptoms present Pain management R52 Additional Codes AMINATA-7 Assessment Billing - AMINATA-7 Assessment Tool: AMINATA-7 Assessment [id number] ([id number])
== END 2023-08-04 12:07 | disposition home or self-care (01) ==
PROVIDERS: PCP Internal Medicine; Visit Provider Internal Medicine
DX: I73.9 Peripheral vascular disease, unspecified (principal); E11.43 Type 2 diabetes mellitus with diabetic autonomic (poly)neuropathy; E66.01 Morbid (severe) obesity due to excess calories; Z68.38 Body mass index [BMI] 38.0-38.9, adult; I10 Essential (primary) hypertension; M54.16 Radiculopathy, lumbar region; E78.9 Disorder of lipoprotein metabolism, unspecified; R20.2 Paresthesia of skin; K21.9 Gastro-esophageal reflux disease without esophagitis; M13.0 Polyarthritis, unspecified
CPT/HCPCS: 99215

== ENCOUNTER 2023-09-16 10:22 | Outpatient (AMB) | payer OTHER, SELFPAY ==
--- NOTE | 2023-09-16 10:24 | MHC.OFFVIS ---
Intake Visit Reasons: PCP Ref/ Peripheral vascular disease Intake Note: Patient presents for PVD. Has bilateral leg pain and swelling for about 2 months now. Patient is diabetic. Non smoker. Accompanied by: Self / Same As Patient Allergies No Known Allergies Allergy (Verified 09/16/23 10:25) HPI HPI PCP Ref/ Peripheral vascular disease: Details: Very pleasant 63 year old gentleman presents for evaluation regarding lower extremity pain and discomfort. He is a morbidly obese gentleman who is a nonsmoker but a longstanding diabetic for over 20 years. He reports that he does have some swelling of the lower extremities which was his biggest concern. Upon further discussion with him it was discovered that he can only really walk about a block when he starts to have some leg discomfort. Reports it is right more so than left. He now presents to us for vascular evaluation. [facility] Medical History Hypothyroid Glaucoma Chronic SI joint pain Lumbar radiculopathy Neuropathy BPH (benign prostatic hyperplasia) Elevated cholesterol GERD (gastroesophageal reflux disease) CKD (chronic kidney disease) Diabetes HTN (hypertension) Surgical History Hx of cataract surgery History of surgery on lower extremity History of shoulder surgery Family History Father Diabetes Hypertension Cancer Mother Hypertension Diabetes Social History Housing: House Patient Tobacco Use Status: Never used Tobacco e-Cigarette/Vaping Use: Never Used Current occupational status: disabled Cognitive needs: No Hearing needs: No Vision needs: Yes Review of Systems Const All systems reviewed & are unremarkable except as noted in HPI and below Reports no additional complaints ENT Reports Normal hearing present Card Denies chest pain, Denies chest pain at rest, Denies chest pain with activity and Denies pedal edema Resp Denies cough GI Denies abdominal pain Musc Denies abnormal gait, Denies muscle cramps and Denies radiating pain into limb Skin/Breast Denies skin ulcer and Denies wounds Neuro Reports Normal hearing present and Denies abnormal gait Psych Reports no additional complaints Physical Exam Const General: cooperative, healthy appearing and comfortable Orientation/consciousness: oriented to person, oriented to place and oriented to time HEENT Head: Yes normal to inspection Neck Neck: Yes normal visual inspection Carotids: no bruits Chest Chest palpation & inspection: normal inspection of the chest Resp Effort & Inspection: normal respiratory effort and able to speak in complete sentences Auscultation: clear to auscultation bilaterally, no crackles, no rales, no rhonchi and no wheezes Cardio Other: Bilateral DP signals only Rate: regular rate Rhythm: regular rhythm Heart sounds: S1 normal heart sound present and S2 normal heart sound present Bruits: no carotid bruits GI Inspection: Yes normal to inspection Skin Wounds: no wounds Hair: normal Neuro General: oriented to person, oriented to place and oriented to time Cranial nerves: Yes CN's II-XII intact bilaterally and Yes Normal hearing present Cognition (Neuro): normal cognition Motor exam (neuro): 5/5 motor strength present throughout Extrem Other: venous exam: +2 edema bilaterally General: No clubbing, No cyanosis and Yes edema Psych Appearance: grossly normal Mental Status: mental status grossly normal Speech and movement: Normal speech and movement present Assessment & Plan Assessment & Plan (1) PAD (peripheral artery disease): Code(s): I73.9 - Peripheral vascular disease, unspecified Category: Medical Plan: In short patient has an element of peripheral vascular disease due to his longstanding history of diabetes. I did review the pathophysiology of peripheral vascular disease with the patient. In addition we did discuss routine conservative measures including a healthy diet and the importance of exercise and ambulation. We did discuss risk factor modification. We will schedule him for noninvasive arterial testing.. Thank you for allowing us to participate in this patient's care. If there are any questions or concerns please do not hesitate to contact us. (2) Varicose veins of right lower extremity with inflammation: Code(s): I83.11 - Varicose veins of right lower extremity with inflammation Category: Medical Plan: He does have swelling of the lower extremity and may have an element of venous insufficiency. We will workup his arterial status 1st. Orders: Orders US arterial duplex LE BI 1 Week I73.9 - Peripheral vascular disease, unspecified Coding Level of Care Code New Pt Level 4 (83726) Diagnoses PAD (peripheral artery disease) I73.9 Varicose veins of right lower extremity with inflammation I83.11
== END 2023-09-16 10:43 | disposition home or self-care (01) ==
PROVIDERS: PCP Internal Medicine; Visit Provider Surgery Vascular Surgery
DX: I73.9 Peripheral vascular disease, unspecified (principal); I83.11 Varicose veins of right lower extremity with inflammation
CPT/HCPCS: 99203

== ENCOUNTER → 2023-09-16 10:22 | Outpatient (BNVA) | payer OTHER, SELFPAY | PROVIDERS: PCP Internal Medicine; Visit Provider Surgery Vascular Surgery | DX: I73.9 Peripheral vascular disease, unspecified (principal); I83.11 Varicose veins of right lower extremity with inflammation | CPT/HCPCS: 99202 ==

== ENCOUNTER 2023-09-27 12:36 | Outpatient (REF) | payer OTHER, SELFPAY ==
--- NOTE | ~2023-09-27 | US_ITS ---
EXAMINATION: Noninvasive assessment of the bilateral lower extremities with ARTERIAL DUPLEX and ANKLE BRACHIAL INDICES (ABIs). CLINICAL INFORMATION: Peripheral vascular disease TECHNIQUE: Duplex Doppler techniques with waveform analysis and measurement of velocities in the bilateral common femoral, profunda femoris, superficial femoral, popliteal and tibial arteries were performed. Additionally, ankle pulse volume recordings, ankle pressure measurements and ankle brachial indices were obtained of the lower extremity arterial system bilaterally. The study was performed only at rest. COMPARISON: None FINDINGS: DIRECT DUPLEX DOPPLER FINDINGS: RIGHT LEG: Common femoral artery: 80.6 cm/s, phasicity: Triphasic Profunda femoris artery: 65.3 cm/s, phasicity: Biphasic Superficial femoral artery (proximal): 111 cm/s, phasicity: Triphasic Superficial femoral artery (mid): 111 cm/s, phasicity: Triphasic Superficial femoral artery (distal): 92.8 cm/s, phasicity: Triphasic Popliteal artery: 80 cm/s, phasicity: Triphasic Posterior tibial artery: 80 cm/s, phasicity: Triphasic Peroneal artery: 48.3 cm/s, phasicity: Biphasic Anterior tibial artery: 49.4 cm/s, phasicity: Triphasic Dorsalis pedis artery: 75.6 cm/s, phasicity:Triphasic LEFT LEG: Common femoral artery: 135 cm/s, phasicity: Triphasic Profunda femoris artery: 79.7 cm/s, phasicity: Biphasic Superficial femoral artery (proximal): 111 cm/s, phasicity: Triphasic Superficial femoral artery (mid): 126 cm/s, phasicity: Triphasic Superficial femoral artery (distal): 79.1 cm/s, phasicity: Triphasic Popliteal artery: 100 cm/s, phasicity: Triphasic Posterior tibial artery: 85.2 cm/s, phasicity: Triphasic Peroneal artery: 48.6 cm/s, phasicity: Biphasic Anterior tibial artery: 45.6 cm/s, phasicity: Biphasic Dorsalis pedis artery: 18.1 cm/s, phasicity: Monophasic ANKLE-BRACHIAL INDEX: Right: 1.2? Left: 1.2 ANKLE PRESSURES: Right: PT 130, DP 121 Left: PT?138, DP?130 ANKLE PVR WAVEFORMS: Right: Normal Left: Normal US/US arterial duplex BI w/ LIZETTE IMPRESSION: Right leg: Normal ankle brachial index and PVR waveform. Unremarkable duplex Doppler ultrasound evaluation Left leg: Normal ankle brachial index and PVR waveform. Unremarkable duplex Doppler ultrasound evaluation LIZETTE Reference: - >1.4 = calcified vessels - 0.9 - 1.4 = normal - no significant arterial disease - 0.7 - 0.89 = mild peripheral arterial disease - 0.51 - 0.69 = moderate peripheral arterial disease - ? 0.50 = severe peripheral arterial disease - < .30 = critical arterial disease
== END 2023-09-27 12:37 | disposition home or self-care (01) ==
LOC: HO.US 12:36
PROVIDERS: PCP Internal Medicine; Visit Provider Surgery Vascular Surgery
DX: I73.9 Peripheral vascular disease, unspecified (principal)
CPT/HCPCS: 93922; 93925

== ENCOUNTER 2023-10-21 08:26 | Outpatient (REF) | payer OTHER, SELFPAY ==
[2023-10-21 10:06] LABS: MANUAL DIFF FLAG NO
[2023-10-21 10:10] LABS: Basophils Percent Auto 0.5 % (0-2); Eosinophils Absolute Auto 0.2 X10*3/uL (0.0-0.4); Eosinophils Percent Auto 1.9 % (0-4); Hematocrit 39.7 % (42.0-52.0); Hemoglobin 13.1 g/dl (14.0-18.0); Imm Gran Abs Auto 0.02 X10*3/uL (0.00-0.03); Imm Gran Pct Auto 0.3 % (0.0-0.4); Lymphocytes Absolute Auto 3.1 X10*3/uL (1.2-4.9); Lymphocytes Percent Auto 39.7 % (20-40); Mean Corpuscular Hemoglobin 29.8 pg (27.0-33.0); Mean Corpuscular Volume 90.4 fL (80.0-98.0); Mean Platelet Volume 9.8 fL (9.4-12.4); Monocytes Absolute Auto 0.7 X10*3/uL (0.1-1.2); Monocytes Percent Auto 9.3 % (2-11); Neutrophils Absolute Auto 3.8 x10*3/uL (2.0-8.3); Neutrophils Percent Auto 48.3 % (45-73); Platelet Count 256 X10*3/uL (160-400); Red Blood Count 4.39 X10*6/uL (4.60-5.80); Red Cell Distribution Width 13.5 % (11.0-16.0); White Blood Count 7.8 X10*3/uL (4.8-10.8)
[2023-10-21 10:17] LABS: Estimated Average Glucose 169 mg/dL; Hemoglobin A1c % 7.5 % (<6.0)
[2023-10-21 10:28] LABS: Alanine Aminotransferase 17 U/L (0-40); Albumin Level 3.7 g/dL (3.5-5.0); Alkaline Phosphatase 115 U/L (39-117); Anion Gap 11 (12-20); Aspartate Amino Transferase 20 U/L (5-37); Bilirubin Total 0.2 mg/dL (0.0-1.0); Blood Urea Nitrogen 13 mg/dL (9-16); Calcium 8.9 mg/dL (8.4-10.2); Carbon Dioxide 22 mmol/L (22-29); Chloride 111 mmol/L (96-108); Cholesterol 89 mg/dL (<200); Estimated Glomerular Filt Rate 44; Glucose Fasting 121 mg/dL (60-99); HDL Cholesterol 28 mg/dL (>40); LDL Cholesterol Calculated 38 mg/dL (<100); Potassium 4.2 mmol/L (3.3-5.1); Sodium 140 mmol/L (135-145); Total Protein 6.8 g/dL (6.5-8.0); Triglycerides 119 mg/dL (<150)
[2023-10-21 10:49] LABS: TSH reflex Free T4 1.69 uIU/mL (0.32-4.0)
[2023-10-25 14:48] LABS: Vitamin D 25-OH, D2 8 ng/mL; Vitamin D 25-OH, D3 24 ng/mL; Vitamin D 25-OH, Total 32 ng/mL (30-100)
== END 2023-10-21 08:27 | disposition home or self-care (01) ==
LOC: HO.HMGCLDS 08:26
PROVIDERS: PCP Internal Medicine; Visit Provider Internal Medicine
DX: M54.16 Radiculopathy, lumbar region (principal); R20.2 Paresthesia of skin; E66.01 Morbid (severe) obesity due to excess calories; Z68.38 Body mass index [BMI] 38.0-38.9, adult; K21.9 Gastro-esophageal reflux disease without esophagitis; E78.9 Disorder of lipoprotein metabolism, unspecified; E10.3553 Type 1 diabetes mellitus with stable proliferative diabetic retinopathy, bilateral; M13.0 Polyarthritis, unspecified; I73.9 Peripheral vascular disease, unspecified
CPT/HCPCS: 36415; 80053; 80061; 82306; 83036; 84443; 85025

== ENCOUNTER 2023-10-26 10:55 | Outpatient (AMB) | payer OTHER, SELFPAY ==
[2023-10-26 10:56] VITALS: BP 116/68; PULSE 86; O2SAT 98; BMI 38.5
--- NOTE | 2023-10-26 10:56 | A.OFFPC_ITS ---
Vital Signs 10/26/23 10:56 Height 5 ft 7 in Weight 246 lb BMI 38.5 BP 116/68 Blood Pressure Location Lt brachial Position Sitting Pulse 86 Pulse Source Pulse Oximeter Pulse Oximetry (%) 98 Oxygen Delivery Method Room Air Intake Visit Reasons: follow up Allergies No Known Allergies Allergy (Verified 10/26/23 10:57) Medication List - Last Reconciled 10/26/23 by Shawn Johnson MD amlodipine-benazepril 10-20 mg 1 cap PO DAILY aspirin (Adult Low Dose Aspirin) 81 mg PO DAILY atorvastatin 10 mg PO BEDTIME bisacodyl (Dulcolax (bisacodyl)) 20 mg (4 x 5 mg) PO ONCE 1 day blood sugar diagnostic (FreeStyle Lite Strips) USE TO CHECK BLOOD SUGAR 3 TIMES DAILY: FASTING AND BEFORE MEALS cholecalciferol (vitamin D3) 25 mcg PO DAILY 90 days dorzolamide-timolol 22.3-6.8 mg/mL 1 drp ophthalmic (eye) BID dulaglutide (Trulicity) 4.5 mg (0.5 mL) subcut QWEEK 90 days flash glucose sensor (FreeStyle Ye 2 Sensor kit) Use with sensor to monitor blood sugar TID and as needed for s/s hypo/hyperglycemia FreeStyle Ye 2 [place]mere (flash glucose scanning reader) Use with sensor to monitor blood sugar TID and as needed for s/s hypo/hyperglycemia NS FreeStyle Lite Meter (blood-glucose meter) Use to check blood sugar 4 times daily, fasting and AC NS insulin aspart U-100 (Novolog FlexPen U-100 Insulin aspart) 15 units (0.15 mL) subcut TID 90 days [insulin pen needles 4 times a day] lamotrigine 100 mg PO BID lancets (FreeStyle Lancets) Use to check blood sugar QID, fasting and AC Lantus Solostar U-100 Insulin (insulin glargine) subcutaneously 2 times a day; 50 units at night and 20 units in the morning 90 days NS levothyroxine 50 mcg PO DAILY metoclopramide HCl (Reglan) 10 mg PO Q6H 7 days ondansetron 8 mg PO Q8H 10 days pantoprazole 20 mg PO DAILY polyethylene glycol 3350 (Miralax) 238 grams PO ONCE PRN 1 day pseudoephedrine HCl ER (Sudafed 12 Hour) 120 mg PO .q am 5 days Tobacco use date assessed: 10/26/23 Dental Screening Dental Screen Date: 10/26/23 Did you have a dental visit in the last 12 months?: Yes Did you have a dental problem in the last 6 months where you did not have access to dental care?: No Was dental information given to patient?: Patient has dentist HPI follow up HPI Details Patient is 63-year-old gentleman came in today for his regular follow-up appointment Peripheral vascular disease and Diabetic neuropathy continued to cause pain in both lower leg and feet He is seeing vascular specialist now 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 Allergic rhinitis: Taking Flonase as needed Patient is now seeing [facility] Creatinine went up to 1.61 on recent labs Blood pressure is stable, it is not clear if Nephrology is managing his blood pressure or not Insulin-dependent diabetes: he is taking Lantus to 54 the morning and 20 at night Lispro insulin 3 times a day after checking the sugar follow the sliding scale Continue Eagle, hemoglobin A1c 7.5% Was seeing pain management [facility] but patient says that they keep ordering physical therapy which is not helping him Continue gabapentin 300 mg that is through PCP office Continue atorvastatin 10 mg for lipid control Continue levothyroxine 50 mcg for hypothyroidism And pantoprazole 20 mg for chronic GERD, symptoms stable. BMI is elevated need to lose weight Patient has appointment December 21 for follow-up May need earlier appointment if he started taking Percocet on a daily basis visit night [facility] Medical History Hypothyroid Glaucoma Chronic SI joint pain Lumbar radiculopathy Neuropathy BPH (benign prostatic hyperplasia) Elevated cholesterol GERD (gastroesophageal reflux disease) CKD (chronic kidney disease) Diabetes HTN (hypertension) Surgical History Hx of cataract surgery History of surgery on lower extremity History of shoulder surgery Family History Father Diabetes Hypertension Cancer Mother Hypertension Diabetes Social History Housing: House Patient Tobacco Use Status: Never used Tobacco e-Cigarette/Vaping Use: Never Used service: No Current occupational status: disabled Cognitive needs: No Hearing needs: No Vision needs: Yes Questionnaire PHQ-9 Over the last 2 weeks, how often have you been bothered by any of the following problems? 1. Little interest or pleasure in doing things: nearly every day 2. Feeling down, depressed, or hopeless: more than half the days 3. Trouble falling or staying asleep, or sleeping too much: more than half the days 4. Feeling tired or having little energy: nearly every day 5. Poor appetite or overeating: not at all 6. Feeling bad about yourself - or that you are a failure or have let yourself or your family down: not at all 7. Trouble concentrating on things, such as reading the newspaper or watching television: more than half the days 8. Moving or speaking so slowly that other people could have noticed. Or the opposite - being so fidgety or restless that you have been moving around a lot more than usual: nearly every day 9. Thoughts that you would be better off or of hurting yourself in some way: not at all Total score: 15 Depression Screening Interpretation: Positive Depression Screening Follow-up: Existing condition and In treatment Depression Screening Done: Yes 34727 - PHQ-9 Billing: Yes Source: Developed by Drs. Josiah Bailey, Gema Zimmerman, Brian Jo and colleagues, with an educational lovely from [employer]. Thrive Questionnaire Date Thrive assessed: 10/26/23 I am a: Patient What is your living situation today?: I have a steady place to live Within the past 12 months, did the food you bought not last and you didn't have the money to get more?: Sometimes True Within the past 12 months, did you worry whether your food would run out before you got money to buy more?: Often true Do you have trouble paying for medicines?: No Do you have trouble getting transportation to medical appointments?: No Do you have trouble paying your heating and electricity bill?: No Do you have trouble taking care of your child, family member or friend?: I choose not to answer this question Do you have trouble with day-to-day activities such as bathing, preparing meals, shopping, managing finances, etc.?: No Are you currently unemployed and looking for a job?: No Are you interested in more education?: No Please select the resources that you would like help with: Transportation THRIVE Score: 2 AUDIT C Alcohol Use Questionnaire (AUDIT-C) 1. How often do you have a drink containing alcohol?: Never 3. How often do you have six or more drinks on one occasion?: Never Total Score: 0 Score Reviewed/Action Taken: Yes AMINATA-7 AMB Questionnaire AMINATA-7 Date AMINATA - 7 assessed: 08/04/23 Source: Developed by Drs. Josiah Bailey, Gema Zimmerman, Brian Jo and colleagues, with an educational lovely from [employer]. Review of Systems Const Denies chills and Denies fever(s) ENT Denies epistaxis and Denies nasal discharge Card Denies chest pain Resp Denies chest congestion, Denies cough and Denies hemoptysis GI Denies diarrhea and Denies nausea Skin/Breast Denies rash Neuro Reports no additional complaints Psych Reports no additional complaints Endo Reports no additional complaints Physical exam (Primary Care) Vital Signs: Last Vital Signs Pulse 86 10/26/23 10:56 BP 116/68 10/26/23 10:56 Pulse Ox 98 10/26/23 10:56 Oxygen Delivery Method Room Air 10/26/23 10:56 BMI result Body Mass Index 38.5 Tobacco/Smoking Status: Tobacco use Status Tobacco use date assessed 10/26/23 10/26/23 11:02 Patient Tobacco Use Status Never used Tobacco 10/26/23 11:02 e-Cigarette/Vaping Use Never Used 10/26/23 11:02 PHQ-9: PHQ-9 Score PHQ-9: Total score 15 10/26/23 11:20 Depression Screening Interpretation: Positive Depression Screening Follow-up: Existing condition and In treatment Thrive Assessment: Date of Thrive Assessment Date Thrive assessed 10/26/23 10/26/23 11:02 Const General: cooperative, comfortable and no acute distress Orientation/consciousness: patient oriented x3 HENMT Head: Yes normocephalic Eyes General: appearance normal, both eyes and all related structures Neck Neck: Yes supple Resp Effort & Inspection: normal respiratory effort, no cough and no stridor Cardio Rhythm: regular rhythm Heart sounds: S1 normal heart sound present and S2 normal heart sound present Skin General skin exam: turgor normal Neuro General: patient oriented x3, tone normal and moves all extremities Extrem Right lower extremity: no edema Left lower extremity: no edema Assessment and Plan Assessment & Plan (1) Insulin dependent type 1 diabetes mellitus: Code(s): E10.9 - Type 1 diabetes mellitus without complications Qualifiers: Diabetes mellitus complication detail: with diabetic retinopathy Diabetes mellitus complication status: with ophthalmic complications Diabetic retinopathy severity: with proliferative retinopathy Laterality: bilateral Proliferative retinopathy type: stable Qualified Code(s): E10.3553 - Type 1 diabetes mellitus with stable proliferative diabetic retinopathy, bilateral (2) Hypertension, essential: Code(s): I10 - Essential (primary) hypertension (3) Pain management: Code(s): R52 - Pain, unspecified (4) Diabetic nephropathy: Code(s): E11.21 - Type 2 diabetes mellitus with diabetic nephropathy Qualifiers: Diabetes mellitus type: type 1 Qualified Code(s): E10.21 - Type 1 diabetes mellitus with diabetic nephropathy (5) Peripheral vascular disease: Code(s): I73.9 - Peripheral vascular disease, unspecified (6) Lumbar radiculopathy: Code(s): M54.16 - Radiculopathy, lumbar region (7) Lipid disorder: Code(s): E78.9 - Disorder of lipoprotein metabolism, unspecified (8) Diabetic neuropathy: Code(s): E11.40 - Type 2 diabetes mellitus with diabetic neuropathy, unspecified Qualifiers: Diabetes mellitus complication detail: diabetic autonomic neuropathy Diabetes mellitus type: type 2 Qualified Code(s): E11.43 - Type 2 diabetes mellitus with diabetic autonomic (poly)neuropathy (9) Paresthesia of both feet: Code(s): R20.2 - Paresthesia of skin (10) Obesity due to excess calories: Code(s): E66.09 - Other obesity due to excess calories Qualifiers: Body mass index: BMI 38.0-38.9 Obesity classification: adult class 2 (BMI 35 - 39.9) Serious obesity comorbidity presence: with serious comorbidity Qualified Code(s): E66.01 - Morbid (severe) obesity due to excess calories; Z68.38 - Body mass index [BMI] 38.0-38.9, adult (11) Chronic GERD: Comment: Dietary modifications, opportunity for improvement Code(s): K21.9 - Gastro-esophageal reflux disease without esophagitis (12) Polyarthritis: Code(s): M13.0 - Polyarthritis, unspecified (13) BPH (benign prostatic hyperplasia): Code(s): N40.0 - Benign prostatic hyperplasia without lower urinary tract symptoms Qualifiers: Lower urinary tract symptom detail: urinary frequency Lower urinary tract symptom presence: symptoms present Qualified Code(s): N40.1 - Benign prostatic hyperplasia with lower urinary tract symptoms; R35.0 - Frequency of micturition (14) Right shoulder pain: Code(s): M25.511 - Pain in right shoulder (15) Spondylosis of lumbar region without myelopathy or radiculopathy: Code(s): M47.816 - Spondylosis without myelopathy or radiculopathy, lumbar region Plan Patient is 63-year-old gentleman came in today for his regular follow-up appointment Peripheral vascular disease and Diabetic neuropathy continued to cause pain in both lower leg and feet He is seeing vascular specialist now 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 Allergic rhinitis: Taking Flonase as needed Patient is now seeing [facility] Creatinine went up to 1.61 on recent labs Blood pressure is stable, it is not clear if Nephrology is managing his blood pressure or not Insulin-dependent diabetes: he is taking Lantus to 54 the morning and 20 at night Lispro insulin 3 times a day after checking the sugar follow the sliding scale Continue Eagle, hemoglobin A1c 7.5% Was seeing pain management [facility] but patient says that they keep ordering physical therapy which is not helping him Continue gabapentin 300 mg that is through PCP office Continue atorvastatin 10 mg for lipid control Continue levothyroxine 50 mcg for hypothyroidism And pantoprazole 20 mg for chronic GERD, symptoms stable. BMI is elevated need to lose weight Patient has appointment December 21 for follow-up May need earlier appointment if he started taking Percocet on a daily basis visit night 45 minute spent in care of this patient Medications: New oxycodone-acetaminophen 5-325 mg (Percocet) Partial Fill upon patient request. 1 tab PO Q8H PRN 30 tabs 0RF pain M13.0 - Polyarthritis, unspecified, M25.511 - Pain in right shoulder, M47.816 - Spondylosis without myelopathy or radiculopathy, lumbar region Discontinued pseudoephedrine HCl ER (Sudafed 12 Hour) Discontinued Reason: Change Referral Type 120 mg PO .q am 5 days 5 tabs 0RF nasal congestion ondansetron Discontinued Reason: Doctor's Order 8 mg PO Q8H 10 days 30 tabs 0RF K29.00 - Acute gastritis without bleeding Coding Level of Care Code Est Pt Level 5 (48907) Complex EM visit Add On G2211 Diagnoses 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 E10.3553 Diabetes mellitus complication detail: with diabetic retinopathy Diabetes mellitus complication status: with ophthalmic complications Diabetic retinopathy severity: with proliferative retinopathy Laterality: bilateral Proliferative retinopathy type: stable Hypertension, essential I10 Pain management R52 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 E10.21 Diabetes mellitus type: type 1 Peripheral vascular disease I73.9 Lumbar radiculopathy M54.16 Lipid disorder E78.9 Diabetic autonomic neuropathy associated with type 2 diabetes mellitus E11.43 Diabetes mellitus complication detail: diabetic autonomic neuropathy Diabetes mellitus type: type 2 Paresthesia of both feet R20.2 Class 2 severe obesity due to excess calories with serious comorbidity and body mass index (BMI) of 38.0 to 38.9 in adult E66.01; Z68.38 Body mass index: BMI 38.0-38.9 Obesity classification: adult class 2 (BMI 35 - 39.9) Serious obesity comorbidity presence: with serious comorbidity Chronic GERD K21.9 Polyarthritis M13.0 Benign prostatic hyperplasia with urinary frequency N40.1; R35.0 Lower urinary tract symptom detail: urinary frequency Lower urinary tract symptom presence: symptoms present Right shoulder pain M25.511 Spondylosis of lumbar region without myelopathy or radiculopathy M47.816
== END 2023-10-26 12:25 | disposition home or self-care (01) ==
PROVIDERS: PCP Internal Medicine; Visit Provider Internal Medicine
DX: I73.9 Peripheral vascular disease, unspecified (principal); E11.43 Type 2 diabetes mellitus with diabetic autonomic (poly)neuropathy; E66.01 Morbid (severe) obesity due to excess calories; Z68.38 Body mass index [BMI] 38.0-38.9, adult; I10 Essential (primary) hypertension; R52 Pain, unspecified; M54.16 Radiculopathy, lumbar region; E78.9 Disorder of lipoprotein metabolism, unspecified; R20.2 Paresthesia of skin; K21.9 Gastro-esophageal reflux disease without esophagitis
CPT/HCPCS: 99215; G2211

== ENCOUNTER 2023-10-26 12:55 | Outpatient (AMB) | payer OTHER, SELFPAY ==
[2023-10-26 12:59] VITALS: BMI 38.5
--- NOTE | 2023-10-26 12:59 | A.OFFVIS_ITS ---
Vital Signs 10/26/23 12:59 Height 5 ft 7 in Weight 246 lb BMI 38.5 Intake Visit Reasons: Follow up Arterial US 09/27/23 Intake Note: follow up arterial US 09/27/23 for bilateral LE pain, pt states pain is on the pretibial area, pt states he gets bilateral LE swelling, states that happens randomly. S[employer] Pulper Required: No Accompanied by: Self / Same As Patient Allergies No Known Allergies Allergy (Verified 10/26/23 13:01) HPI HPI Follow up Arterial US 09/27/23: Details: Very pleasant 63-year-old gentleman presents for follow-up regarding peripheral vascular disease. He is a morbidly obese gentleman nonsmoker and longstanding diabetic. He has some discomfort of his lower extremities it is more of a chronic pain. Now presents for follow-up with noninvasive testing [facility] Medical History Hypothyroid Glaucoma Chronic SI joint pain Lumbar radiculopathy Neuropathy BPH (benign prostatic hyperplasia) Elevated cholesterol GERD (gastroesophageal reflux disease) CKD (chronic kidney disease) Diabetes HTN (hypertension) Surgical History Hx of cataract surgery History of surgery on lower extremity History of shoulder surgery Family History Father Diabetes Hypertension Cancer Mother Hypertension Diabetes Social History Housing: House Patient Tobacco Use Status: Never used Tobacco e-Cigarette/Vaping Use: Never Used service: No Current occupational status: disabled Cognitive needs: No Hearing needs: No Vision needs: Yes Review of Systems Const All systems reviewed & are unremarkable except as noted in HPI and below Reports no additional complaints ENT Reports Normal hearing present Card Denies chest pain, Denies chest pain at rest, Denies chest pain with activity and Denies pedal edema Resp Denies cough GI Denies abdominal pain Musc Denies abnormal gait, Denies muscle cramps and Denies radiating pain into limb Skin/Breast Denies skin ulcer and Denies wounds Neuro Reports Normal hearing present and Denies abnormal gait Psych Reports no additional complaints Physical Exam Vital Signs: BMI result Body Mass Index 38.5 Const General: cooperative, healthy appearing and comfortable Orientation/consciousness: oriented to person, oriented to place and oriented to time HEENT Head: Yes normal to inspection Neck Neck: Yes normal visual inspection Carotids: no bruits Chest Chest palpation & inspection: normal inspection of the chest Resp Effort & Inspection: normal respiratory effort and able to speak in complete sentences Auscultation: clear to auscultation bilaterally, no crackles, no rales, no rhonchi and no wheezes Cardio Rate: regular rate Rhythm: regular rhythm Heart sounds: S1 normal heart sound present and S2 normal heart sound present Bruits: no carotid bruits Peripheral pulses: Peripheral pulses 2+ throughout GI Inspection: Yes normal to inspection Skin Wounds: no wounds Hair: normal Neuro General: oriented to person, oriented to place and oriented to time Cranial nerves: Yes CN's II-XII intact bilaterally and Yes Normal hearing present Cognition (Neuro): normal cognition Motor exam (neuro): 5/5 motor strength present throughout Extrem Other: venous exam: No significant superficial varicosities or spider telangiectasias, minimal edema General: No clubbing, No cyanosis and No edema Psych Appearance: grossly normal Mental Status: mental status grossly normal Speech and movement: Normal speech and movement present Results Reviewed Results Reviewed: Noninvasive testing dated 09/27/2023 demonstrates LIZETTE on the right of 1.2 and on the left of 1.2 as well. Waveforms are triphasic all the way down. Assessment & Plan Assessment & Plan (1) PAD (peripheral artery disease): Code(s): I73.9 - Peripheral vascular disease, unspecified Category: Medical Plan: In short the patient is a stable claudication. At the current time his arterial status appears to be stable. This may be more neurogenic in nature due to his longstanding history of diabetes. Will follow up with us on an as-needed basis. Thank you for allowing us to assist in his care. If there are any questions or concerns please do not hesitate to contact us. Coding Level of Care Code Est Pt Level 4 (88617) Diagnoses PAD (peripheral artery disease) I73.9
== END 2023-10-26 13:18 | disposition home or self-care (01) ==
PROVIDERS: PCP Internal Medicine; Visit Provider Surgery Vascular Surgery
DX: I73.9 Peripheral vascular disease, unspecified (principal)
CPT/HCPCS: 99214

== ENCOUNTER → 2023-10-26 12:55 | Outpatient (BNVA) | payer OTHER, SELFPAY | PROVIDERS: PCP Internal Medicine; Visit Provider Surgery Vascular Surgery | DX: I73.9 Peripheral vascular disease, unspecified (principal); E66.01 Morbid (severe) obesity due to excess calories; E11.9 Type 2 diabetes mellitus without complications | CPT/HCPCS: 99212 ==

== ENCOUNTER 2023-11-26 12:19 | Outpatient (AMB) | payer OTHER, SELFPAY ==
[2023-11-26 12:28] VITALS: BP 124/62; PULSE 81; O2SAT 98; BMI 38.9
--- NOTE | 2023-11-26 12:28 | A.OFFPC_ITS ---
Vital Signs 11/26/23 12:28 Height 5 ft 7 in Weight 248 lb 2 oz BMI 38.9 BP 124/62 Blood Pressure Location Rt brachial Position Sitting Pulse 81 Pulse Source Pulse Oximeter Pulse Oximetry (%) 98 Oxygen Delivery Method Room Air Intake Visit Reasons: Discuss pain Allergies No Known Allergies Allergy (Verified 11/26/23 12:29) Medication List - Last Reconciled 11/26/23 by Shawn Johnson MD amlodipine-benazepril 10-20 mg 1 cap PO DAILY aspirin (Adult Low Dose Aspirin) 81 mg PO DAILY atorvastatin 10 mg PO BEDTIME bisacodyl (Dulcolax (bisacodyl)) 20 mg (4 x 5 mg) PO ONCE 1 day blood sugar diagnostic (FreeStyle Lite Strips) USE TO CHECK BLOOD SUGAR 3 TIMES DAILY: FASTING AND BEFORE MEALS cholecalciferol (vitamin D3) 25 mcg PO DAILY 90 days dorzolamide-timolol 22.3-6.8 mg/mL 1 drp ophthalmic (eye) BID dulaglutide (Trulicity) 4.5 mg (0.5 mL) subcut QWEEK 90 days flash glucose sensor (FreeStyle Ye 2 Sensor kit) Use with sensor to monitor blood sugar TID and as needed for s/s hypo/hyperglycemia FreeStyle Ye 2 [place] (flash glucose scanning reader) Use with sensor to monitor blood sugar TID and as needed for s/s hypo/hyperglycemia NS FreeStyle Lite Meter (blood-glucose meter) Use to check blood sugar 4 times daily, fasting and AC NS insulin aspart U-100 (Novolog FlexPen U-100 Insulin aspart) 15 units (0.15 mL) subcut TID 90 days [insulin pen needles 4 times a day] lamotrigine 100 mg PO BID lancets (FreeStyle Lancets) Use to check blood sugar QID, fasting and AC Lantus Solostar U-100 Insulin (insulin glargine) subcutaneously 2 times a day; 50 units at night and 20 units in the morning 90 days NS levothyroxine 50 mcg PO DAILY metoclopramide HCl (Reglan) 10 mg PO Q6H 7 days oxycodone-acetaminophen 5-325 mg (Percocet) 1 tab PO Q8H PRN pantoprazole 20 mg PO DAILY polyethylene glycol 3350 (Miralax) 238 grams PO ONCE PRN 1 day Tobacco use date assessed: 11/26/23 Dental Screening Dental Screen Date: 11/26/23 Did you have a dental visit in the last 12 months?: Yes Did you have a dental problem in the last 6 months where you did not have access to dental care?: No Was dental information given to patient?: Patient has dentist HPI Discuss pain HPI Details Patient is 63-year-old gentleman came in today to have his medication refill He is taking Percocet 1 every night due to severe osteoarthritis multiple joints Patient is doing well however complaining of severe pain in the morning when he gets up which is causing disability Patient is having difficulty going on with the days day He is requesting if we can add 1 tablet for the morning I have sent 60 tablets for the patient He is aware that he will be needing to come every month for medication refill after evaluation. [facility] Medical History Hypothyroid Glaucoma Chronic SI joint pain Lumbar radiculopathy Neuropathy BPH (benign prostatic hyperplasia) Elevated cholesterol GERD (gastroesophageal reflux disease) CKD (chronic kidney disease) Diabetes HTN (hypertension) Surgical History Hx of cataract surgery History of surgery on lower extremity History of shoulder surgery Family History Father Diabetes Hypertension Cancer Mother Hypertension Diabetes Social History Housing: House Patient Tobacco Use Status: Never used Tobacco e-Cigarette/Vaping Use: Never Used service: No Current occupational status: disabled Cognitive needs: No Hearing needs: No Vision needs: Yes Questionnaire PHQ-9 Over the last 2 weeks, how often have you been bothered by any of the following problems? 1. Little interest or pleasure in doing things: nearly every day 2. Feeling down, depressed, or hopeless: more than half the days 3. Trouble falling or staying asleep, or sleeping too much: more than half the days 4. Feeling tired or having little energy: nearly every day 5. Poor appetite or overeating: not at all 6. Feeling bad about yourself - or that you are a failure or have let yourself or your family down: not at all 7. Trouble concentrating on things, such as reading the newspaper or watching television: more than half the days 8. Moving or speaking so slowly that other people could have noticed. Or the opposite - being so fidgety or restless that you have been moving around a lot more than usual: nearly every day 9. Thoughts that you would be better off or of hurting yourself in some way: not at all Total score: 15 Depression Screening Interpretation: Positive Depression Screening Follow-up: Existing condition and In treatment Depression Screening Done: Yes 76486 - PHQ-9 Billing: Yes Source: Developed by Drs. Josiah Bailey, Gema Zimmerman, Brian Jo and colleagues, with an educational lovely from [employer]. Thrive Questionnaire Date Thrive assessed: 11/26/23 I am a: Patient What is your living situation today?: I have a steady place to live Within the past 12 months, did the food you bought not last and you didn't have the money to get more?: Sometimes True Within the past 12 months, did you worry whether your food would run out before you got money to buy more?: Often true Do you have trouble paying for medicines?: No Do you have trouble getting transportation to medical appointments?: No Do you have trouble paying your heating and electricity bill?: No Do you have trouble taking care of your child, family member or friend?: I choose not to answer this question Do you have trouble with day-to-day activities such as bathing, preparing meals, shopping, managing finances, etc.?: No Are you currently unemployed and looking for a job?: No Are you interested in more education?: No Please select the resources that you would like help with: Transportation Currently or been in a relationship where the following occur: I choose not to answer THRIVE Score: 2 AUDIT C Alcohol Use Questionnaire (AUDIT-C) 1. How often do you have a drink containing alcohol?: Monthly or less 2. How many drinks containing alcohol do you have on a typical day when you are drinking?: 1 or 2 3. How often do you have six or more drinks on one occasion?: Never Total Score: 1 Score Reviewed/Action Taken: Yes AMINATA-7 AMB Questionnaire AMINATA-7 Date AMINATA - 7 assessed: 11/26/23 Feeling nervous, anxious, or on edge: 3 = Nearly every day Not being able to stop or control worryin = Nearly every day Worrying too much about different things: 3 = Nearly every day Trouble relaxin = Nearly every day Being so restless that it is hard to sit still: 3 = Nearly every day Becoming easily annoyed or irritable: 0 = Not at all Feeling afraid as if something awful might happen: 1 = Several days Total AMINATA-7 score (0-4 normal; 5-9 mild; 10-14 moderate; 15-21 severe): 16 Source: Developed by Drs. Josiah Bailey, Gema Zimmerman, Brian Jo and colleagues, with an educational lovely from [employer]. AMINATA-7 Assessment Billing AMINATA-7 Assessment Tool: AMINATA-7 Assessment 91039 Review of Systems Const Denies chills and Denies fever(s) ENT Denies epistaxis and Denies nasal discharge Card Denies chest pain Resp Denies chest congestion, Denies cough and Denies hemoptysis GI Denies diarrhea and Denies nausea Skin/Breast Denies rash Neuro Reports no additional complaints Psych Reports no additional complaints Endo Reports no additional complaints Physical exam (Primary Care) Vital Signs: Last Vital Signs Pulse 81 11/26/23 12:28 BP 124/62 11/26/23 12:28 Pulse Ox 98 11/26/23 12:28 Oxygen Delivery Method Room Air 11/26/23 12:28 BMI result Body Mass Index 38.9 Tobacco/Smoking Status: Tobacco use Status Tobacco use date assessed 11/26/23 11/26/23 12:30 Patient Tobacco Use Status Never used Tobacco 11/26/23 12:30 e-Cigarette/Vaping Use Never Used 11/26/23 12:30 PHQ-9: PHQ-9 Score PHQ-9: Total score 15 11/26/23 12:30 Depression Screening Interpretation: Positive Depression Screening Follow-up: Existing condition and In treatment Thrive Assessment: Date of Thrive Assessment Date Thrive assessed 11/26/23 11/26/23 12:30 Currently or been in a relationship where the following occur: I choose not to answer Const General: cooperative, comfortable and no acute distress Orientation/consciousness: patient oriented x3 HENMT Head: Yes normocephalic Eyes General: appearance normal, both eyes and all related structures Neck Neck: Yes supple Resp Effort & Inspection: normal respiratory effort, no cough and no stridor Cardio Rhythm: regular rhythm Heart sounds: S1 normal heart sound present and S2 normal heart sound present Skin General skin exam: turgor normal Neuro General: patient oriented x3, tone normal and moves all extremities Assessment and Plan Assessment & Plan (1) Pain management: Code(s): R52 - Pain, unspecified (2) Lumbar radiculopathy: Code(s): M54.16 - Radiculopathy, lumbar region (3) Polyarthritis: Code(s): M13.0 - Polyarthritis, unspecified (4) Right shoulder pain: Code(s): M25.511 - Pain in right shoulder Qualifiers: Chronicity: chronic Qualified Code(s): M25.511 - Pain in right shoulder; G89.29 - Other chronic pain (5) Spondylosis of lumbar region without myelopathy or radiculopathy: Code(s): M47.816 - Spondylosis without myelopathy or radiculopathy, lumbar region Plan Patient is 63-year-old gentleman came in today to have his medication refill He is taking Percocet 1 every night due to severe osteoarthritis multiple joints Patient is doing well however complaining of severe pain in the morning when he gets up which is causing disability Patient is having difficulty going on with the days day He is requesting if we can add 1 tablet for the morning I have sent 60 tablets for the patient He is aware that he will be needing to come every month for medication refill after evaluation. Medications: Refilled oxycodone-acetaminophen 5-325 mg (Percocet) Partial Fill upon patient request. 1 tab PO Q8H PRN 60 tabs 0RF pain M13.0 - Polyarthritis, unspecified, M25.511 - Pain in right shoulder, M47.816 - Spondylosis without myelopathy or radiculopathy, lumbar region Coding Level of Care Code Est Pt Level 3 (50594) Complex EM visit Add On G2211 Diagnoses Pain management R52 Lumbar radiculopathy M54.16 Polyarthritis M13.0 Chronic right shoulder pain M25.511; G89.29 Chronicity: chronic Spondylosis of lumbar region without myelopathy or radiculopathy M47.816 Additional Codes AMINATA-7 Assessment Billing - AMINATA-7 Assessment Tool: AMINATA-7 Assessment 90744 ([id number])
== END 2023-11-26 13:45 | disposition home or self-care (01) ==
PROVIDERS: PCP Internal Medicine; Visit Provider Internal Medicine
DX: M54.16 Radiculopathy, lumbar region (principal); M13.0 Polyarthritis, unspecified; M25.511 Pain in right shoulder; M47.816 Spondylosis without myelopathy or radiculopathy, lumbar region
CPT/HCPCS: 99213; G2211

== ENCOUNTER 2023-12-03 11:32 | Outpatient (AMB) | payer OTHER, SELFPAY ==
--- NOTE | 2023-12-03 11:38 | A.OFFVIS_ITS ---
Intake Visit Reasons: 6m/PVR Intake Note: Allergies:none Medication:none Visit Reason: 6 months follow up/PVR PVR- 22 mL Allergies No Known Allergies Allergy (Verified 12/22/23 11:27) HPI Comments Details: 12/03/23--Brian is a 63 yo male past medical history, significant for insulin dependent diabetes mellitus, diabetic retinopathy and chronic kidney disease, here for FU for BPH, he states he is doing well. PSA 05/05/23--results 0.99 ng/mL. Will continue PSA screening. Review of chart: 05/17/2023-- 63-year-old male who presents today to the office for follow-up and review of kidney ultrasound results. I have reviewed the kidney ultrasound results negative for stones or masses. The patient states that the bladder portion of the ultrasound was not done because he was told his bladder was not full enough and has been rescheduled. I have discussed a trial of an alpha ruba, however the patient states his symptoms are not too bothersome and will wait on starting another med. I have reviewed the PSA results 0.99 ng/mL 01/29/2023 --He was referred by his primary care physician with a concern regarding urinary frequency and nocturia. His past medical history, significant for insulin dependent diabetes mellitus, diabetic retinopathy and chronic kidney disease followed by nephrology. He complained of dizziness during evaluation, stated he did not eat yet today but had a coffee in the morning. After several minutes he stated he felt better. A blood pressure was checked that was 127/70 mmHg. He is not sure of FH of cancer. He wakes two to 3 times during night for micturition that he states is not bothersome. He denies hematuria or irritative voiding symptoms. Evaluation today?UA-- 01/29/2023 ? Bladder scan PVR: 13 ml. Plan - Ultrasound Retroperitoneum prior was ordered. PSA. FU in 10 weeks [facility] Medical History Hypothyroid Glaucoma Chronic SI joint pain Lumbar radiculopathy Neuropathy BPH (benign prostatic hyperplasia) Elevated cholesterol GERD (gastroesophageal reflux disease) CKD (chronic kidney disease) Diabetes HTN (hypertension) Surgical History Hx of cataract surgery History of surgery on lower extremity History of shoulder surgery Family History Father Diabetes Hypertension Cancer Mother Hypertension Diabetes Social History Housing: House Patient Tobacco Use Status: Never used Tobacco e-Cigarette/Vaping Use: Never Used service: No Current occupational status: disabled Cognitive needs: No Hearing needs: No Vision needs: Yes Review of Systems Const All systems reviewed & are unremarkable except as noted in HPI and below Reports no additional complaints Eyes Reports no additional complaints ENT Reports no additional complaints Card Reports no additional complaints Resp Reports no additional complaints GI Reports no additional complaints Reports as per HPI Musc Reports no additional complaints Skin/Breast Reports system reviewed and no additional complaints, except as documented Neuro Reports no additional complaints Psych Reports no additional complaints Endo Reports no additional complaints Saurabh/Lymph Reports no additional complaints Aller/Immun Reports no additional complaints Office Procedures Post Void Residual Post Residual Void Post Void Residual (PVR): 22 [id number] Void Residual by ultrasound Results AMB Urinalysis, Automated UA Leukoctes 0 Bradley/uL Last Edit by Kylie Pierce on 12/03/23 11:49 UA Nitrite Negative Last Edit by Kylie Pierce on 12/03/23 11:49 UA Urobilinogen 0.2 mg/dL Last Edit by Kylie Pierce on 12/03/23 11:4 9 UA Protein 15 mg/dL Last Edit by Kylie Pierce on 12/03/23 11:49 UA pH 6.0 Last Edit by Kylie Pierce on 12/03/23 11:49 UA Blood 0 Alexandro/uL Last Edit by Kylie Pierce on 12/03/23 11:49 UA Specific [place] 1.020 Last Edit by Kylie Pierce on 12/03/23 11: 49 UA Ketone Positive Last Edit by Kylie Pierce on 12/03/23 11:49 UA Bilirubin 0 mg/dL Last Edit by Kylie Pierce on 12/03/23 11:49 UA Glucose 0 mg/dL Last Edit by Kylie Pierce on 12/03/23 11:49 Results Reviewed Results Reviewed: Laboratory Last Values Urine pH (Auto) 6.0 12/03/23 10:07 Specific [place] (Auto) 1.020 12/03/23 10:07 Urine Protein (Auto) 15 mg/dL 12/03/23 10:07 Glucose (UA)(Auto) 0 mg/dL 12/03/23 10:07 Urine Ketones (Auto) Positive 12/03/23 10:07 Urine Blood (Auto) 0 Alexandro/uL 12/03/23 10:07 Urine Nitrite (Auto) Negative 12/03/23 10:07 Urine Bilirubin (Auto) 0 mg/dL 12/03/23 10:07 Urine Urobilinogen (Auto) 0.2 mg/dL 12/03/23 10:07 Leukocyte Esterase (Auto) 0 Bradley/uL 12/03/23 10:07 Assessment & Plan Assessment & Plan (1) Screening PSA (prostate specific antigen): Code(s): Z12.5 - Encounter for screening for malignant neoplasm of prostate Category: Medical (2) BPH (benign prostatic hyperplasia): Code(s): N40.0 - Benign prostatic hyperplasia without lower urinary tract symptoms Category: Medical Qualifiers: Lower urinary tract symptom presence: symptoms present Lower urinary tract symptom detail: urinary frequency Qualified Code(s): N40.1 - Benign prostatic hyperplasia with lower urinary tract symptoms; R35.0 - Frequency of micturition Plan FU one year. PSA Orders: Orders AMB Urinalysis Automated 12/03/23 N40.1 - Benign prostatic hyperplasia with lower urinary tract symptoms, R35.0 - Frequency of micturition AMB Post Void Residual by ultrasound 12/03/23 N40.1 - Benign prostatic hyperplasia with lower urinary tract symptoms, R35.0 - Frequency of micturition Patient Instructions: The patient had an opportunity to ask questions regarding treatment plan. The patient expressed understanding and agreement with the above treatment plan. The patient is aware they should contact our office by phone for worsening of their current condition or the appearance of new symptoms. Compliance is encouraged with any medications and followup testing that is ordered. It is a privilege to be allowed the opportunity to participate in the urologic care of your patient. If you have any questions or concerns regarding treatment for the above conditions please do not hesitate to contact me. The office telephone contact is [phone]. This note is constructed in part using voice recognition software. While every effort has been made to ensure accuracy machine assistant errors may have been included. Yours sincerely, Donavon Cobian MD Coding Level of Care Code Est Pt Level 3 (99838) Diagnoses Screening PSA (prostate specific antigen) Z12.5 Benign prostatic hyperplasia with urinary frequency N40.1; R35.0 Lower urinary tract symptom presence: symptoms present Lower urinary tract symptom detail: urinary frequency CPT Codes Post Residual Void - PVR CPT Code: 72311-Mwvh Void Residual by ultrasound ([id number])
== END 2023-12-03 12:29 | disposition home or self-care (01) ==
PROVIDERS: PCP Internal Medicine; Visit Provider Urology
DX: Z12.5 Encounter for screening for malignant neoplasm of prostate (principal); N40.1 Benign prostatic hyperplasia with lower urinary tract symptoms; R35.0 Frequency of micturition
CPT/HCPCS: 99213

== ENCOUNTER → 2023-12-03 11:32 | Outpatient (BNVA) | payer OTHER, SELFPAY | PROVIDERS: PCP Internal Medicine; Visit Provider Urology | DX: N40.1 Benign prostatic hyperplasia with lower urinary tract symptoms (principal); R35.0 Frequency of micturition; E11.319 Type 2 diabetes mellitus with unspecified diabetic retinopathy without macular edema; E11.22 Type 2 diabetes mellitus with diabetic chronic kidney disease; N18.9 Chronic kidney disease, unspecified; Z12.5 Encounter for screening for malignant neoplasm of prostate; Z79.4 Long term (current) use of insulin | CPT/HCPCS: 51798; 81003; 99212 ==

== ENCOUNTER 2023-12-22 11:19 | Outpatient (AMB) | payer OTHER, SELFPAY ==
[2023-12-22 11:23] VITALS: BP 124/78; PULSE 80; O2SAT 100; BMI 38.9
--- NOTE | 2023-12-22 11:23 | MHC.PC.OV ---
Vital Signs 12/22/23 11:23 Height 5 ft 7 in Weight 248 lb 4 oz BMI 38.9 BP 124/78 Blood Pressure Location Lt brachial Position Sitting Pulse 80 Pulse Source Pulse Oximeter Pulse Oximetry (%) 100 Oxygen Delivery Method Room Air Intake Visit Reasons: PE Allergies No Known Allergies Allergy (Verified 12/22/23 11:27) Medication List - Last Reconciled 12/22/23 by Shawn Johnson MD amlodipine-benazepril 10-20 mg 1 cap PO DAILY aspirin (Adult Low Dose Aspirin) 81 mg PO DAILY atorvastatin 10 mg PO BEDTIME bisacodyl (Dulcolax (bisacodyl)) 20 mg (4 x 5 mg) PO ONCE 1 day blood sugar diagnostic (FreeStyle Lite Strips) USE TO CHECK BLOOD SUGAR 3 TIMES DAILY: FASTING AND BEFORE MEALS cholecalciferol (vitamin D3) 25 mcg PO DAILY 90 days dorzolamide-timolol 22.3-6.8 mg/mL 1 drp ophthalmic (eye) BID dulaglutide (Trulicity) 4.5 mg (0.5 mL) subcut QWEEK 90 days flash glucose sensor (FreeStyle Ye 2 Sensor kit) Use with sensor to monitor blood sugar TID and as needed for s/s hypo/hyperglycemia FreeStyle Ye 2 [place] (flash glucose scanning reader) Use with sensor to monitor blood sugar TID and as needed for s/s hypo/hyperglycemia NS FreeStyle Lite Meter (blood-glucose meter) Use to check blood sugar 4 times daily, fasting and AC NS insulin aspart U-100 (Novolog FlexPen U-100 Insulin aspart) 15 units (0.15 mL) subcut TID 90 days [insulin pen needles 4 times a day] lamotrigine 100 mg PO BID lancets (FreeStyle Lancets) Use to check blood sugar QID, fasting and AC Lantus Solostar U-100 Insulin (insulin glargine) subcutaneously 2 times a day; 50 units at night and 20 units in the morning 90 days NS levothyroxine 50 mcg PO DAILY metoclopramide HCl (Reglan) 10 mg PO Q6H 7 days oxycodone-acetaminophen 5-325 mg (Percocet) 1 tab PO Q8H PRN pantoprazole 20 mg PO DAILY polyethylene glycol 3350 (Miralax) 238 grams PO ONCE PRN 1 day Tobacco use date assessed: 12/22/23 Dental Screening Dental Screen Date: 12/22/23 Did you have a dental visit in the last 12 months?: Yes Did you have a dental problem in the last 6 months where you did not have access to dental care?: No Was dental information given to patient?: Patient has dentist HPI PE HPI Details Physical exam appointment Patient has seen cognos bi administrator 2022, note reviewed Colonoscopy/EGD was ordered, however I do not see that patient went for it Requesting a new referral to pump service supervisor which I have placed Labs were done in October, A1c is in 7 range Patient has a nephropathy which is stable Medication list reviewed Taking Percocet for multiple joint osteoarthritis Patient has been evaluated by pain management [facility] and has had procedure done Which did not help him Complaining of discomfort left ear On examination his ear is cleaned but there is dull light reflex both side Patient was instructed to stop using Q-tips I am sending azithromycin and 5 day course of prednisone We will re-evaluate when he returns in 4 weeks for his narcotic medication refill Need to lose weight BMI is elevated Follow-up 1 month [facility] Medical History Hypothyroid Glaucoma Chronic SI joint pain Lumbar radiculopathy Neuropathy BPH (benign prostatic hyperplasia) Elevated cholesterol GERD (gastroesophageal reflux disease) CKD (chronic kidney disease) Diabetes HTN (hypertension) Surgical History Hx of cataract surgery History of surgery on lower extremity History of shoulder surgery Family History Father Diabetes Hypertension Cancer Mother Hypertension Diabetes Social History Housing: House Patient Tobacco Use Status: Never used Tobacco e-Cigarette/Vaping Use: Never Used service: No Current occupational status: disabled Cognitive needs: No Hearing needs: No Vision needs: Yes Questionnaire Thrive Questionnaire Date Thrive assessed: 12/22/23 I am a: Patient What is your living situation today?: I have a steady place to live Within the past 12 months, did the food you bought not last and you didn't have the money to get more?: Sometimes True Within the past 12 months, did you worry whether your food would run out before you got money to buy more?: Often true Do you have trouble paying for medicines?: No Do you have trouble getting transportation to medical appointments?: No Do you have trouble paying your heating and electricity bill?: No Do you have trouble taking care of your child, family member or friend?: I choose not to answer this question Do you have trouble with day-to-day activities such as bathing, preparing meals, shopping, managing finances, etc.?: No Are you currently unemployed and looking for a job?: No Are you interested in more education?: No Please select the resources that you would like help with: Transportation Currently or been in a relationship where the following occur: I choose not to answer THRIVE Score: 2 AUDIT C Alcohol Use Questionnaire (AUDIT-C) 1. How often do you have a drink containing alcohol?: Monthly or less 2. How many drinks containing alcohol do you have on a typical day when you are drinking?: 1 or 2 3. How often do you have six or more drinks on one occasion?: Never Total Score: 1 Score Reviewed/Action Taken: Yes AMINATA-7 AMB Questionnaire AMINATA-7 Date AMINATA - 7 assessed: 11/26/23 Source: Developed by Drs. Josiah Bailey, Gema Zimmerman, Brian Jo and colleagues, with an educational lovely from [employer]. Review of Systems Const Denies chills, Denies fever(s) and Denies headache(s) Eyes Denies blurry vision ENT Denies headache(s), Denies odynophagia and Denies sinus pain Card Denies chest pain at rest and Denies chest pain with activity Resp Denies cough and Denies hemoptysis GI Denies diarrhea, Denies odynophagia, Denies vomiting and Denies hematemesis Reports as per HPI Musc Denies abnormal gait Skin/Breast Reports as per HPI Neuro Denies Neuro-related abnormal movements, Denies Abnormal speech present, Denies abnormal gait and Denies headache(s) Psych Denies mood swings and Denies paranoia Endo Reports as per HPI Saurabh/Lymph Reports as per HPI Aller/Immun Reports as per HPI Physical exam (Primary Care) Vital Signs: Last Vital Signs Pulse 80 12/22/23 11:23 BP 124/78 12/22/23 11:23 Pulse Ox 100 12/22/23 11:23 Oxygen Delivery Method Room Air 12/22/23 11:23 BMI result Body Mass Index 38.9 Tobacco/Smoking Status: Tobacco use Status Tobacco use date assessed 12/22/23 12/22/23 11:28 Patient Tobacco Use Status Never used Tobacco 12/22/23 11:28 e-Cigarette/Vaping Use Never Used 12/22/23 11:28 Thrive Assessment: Date of Thrive Assessment Date Thrive assessed 12/22/23 12/22/23 11:28 Currently or been in a relationship where the following occur: I choose not to answer Const General: cooperative, comfortable and no acute distress Orientation/consciousness: patient oriented x3 HENMT Other: Both ears with dull light reflex Head: Yes normocephalic and Yes atraumatic Eyes General: appearance normal, both eyes and all related structures Pupils: Equal, round and reactive pupils present EOM: EOMs intact bilaterally Neck Neck: Yes supple and No lymphadenopathy Thyroid: Thyroid normal Lymphatic: no lymphadenopathy noted Resp Effort & Inspection: normal respiratory effort and able to speak in complete sentences Auscultation: clear to auscultation bilaterally Cardio Heart sounds: S1 normal heart sound present and S2 normal heart sound present GI Palpation (GI): Soft to palpation and nontender Auscultation: normal bowel sounds General: Yes no CVA tenderness Back/Spine/Pelvis Back: no CVA tenderness Skin General skin exam: elasticity normal and turgor normal Neuro General: patient oriented x3 and gait normal Cranial nerves: Yes Equal, round and reactive pupils present Speech: No Abnormal speech present Extrem General: Yes normal exam except as noted and No edema Office Procedures Flu Questionnaire Does the patient have a severe egg allergy?: No Does the patient have severe life threatening allergies?: No Does the patient have a fever or illness today?: No Has the patient ever had Guillain-[place] Syndrome?: No Has the patient ever had any past reaction to a flu shot?: No Immunizations Fluarix Triv [id number] (PF) 45 mcg (15 mcg x 3)/0.5 mL IM syringe Performing Provider: Shawn Johnson MD Performing Location: [facility] Administered by: DIANE Jaeger on 12/22/23 11:35 Dose Route Admin Location Dispensed Lot Number Expiration Date NDC [employer] 0.5 mL IM Left Deltoid 0.5 mL [id number] 09/18/24 [id number] [employer] VIS Given Date VIS Provided VIS Publication Date 12/22/23 Single Vaccine 20 Eligibility Eligibility Date Funding Source Not [facility] Eligible 12/22/23 Private Coding Level of Care Code Est Pt Level 4 (70492) Est Pt Prev Care 40-64y(32055) Diagnoses Encounter for general adult medical examination with abnormal findings Z00.01 Paresthesia of both feet R20.2 Pain in both feet M79.671; M79.672 Sacroiliac joint dysfunction of left side M53.3 Myofascial pain syndrome M79.18 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 E10.3553 Diabetes mellitus complication detail: with diabetic retinopathy Diabetes mellitus complication status: with ophthalmic complications Diabetic retinopathy severity: with proliferative retinopathy Laterality: bilateral Proliferative retinopathy type: stable 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 E10.21 Diabetes mellitus type: type 1 Lipid disorder E78.9 Chronic GERD K21.9 Class 2 severe obesity due to excess calories with serious comorbidity and body mass index (BMI) of 38.0 to 38.9 in adult E66.01; Z68.38 Body mass index: BMI 38.0-38.9 Obesity classification: adult class 2 (BMI 35 - 39.9) Serious obesity comorbidity presence: with serious comorbidity Benign prostatic hyperplasia with urinary frequency N40.1; R35.0 Lower urinary tract symptom detail: urinary frequency Lower urinary tract symptom presence: symptoms present Hypertension, essential I10 Pain management R52 Chronic pain of both ears H92.03; G89.29 Nasal congestion R09.81 Assessment & Plan Assessment & Plan (1) Encounter for general adult medical examination with abnormal findings: Code(s): Z00.01 - Encounter for general adult medical examination with abnormal findings Category: Medical (2) Paresthesia of both feet: Code(s): R20.2 - Paresthesia of skin Category: Medical (3) Pain in both feet: Code(s): M79.671 - Pain in right foot; M79.672 - Pain in left foot Category: Medical (4) Sacroiliac joint dysfunction of left side: Code(s): M53.3 - Sacrococcygeal disorders, not elsewhere classified Category: Medical (5) Myofascial pain syndrome: Code(s): M79.18 - Myalgia, other site Category: Medical (6) Insulin dependent type 1 diabetes mellitus: Code(s): E10.9 - Type 1 diabetes mellitus without complications Category: Medical Qualifiers: Diabetes mellitus complication detail: with diabetic retinopathy Diabetes mellitus complication status: with ophthalmic complications Diabetic retinopathy severity: with proliferative retinopathy Laterality: bilateral Proliferative retinopathy type: stable Qualified Code(s): E10.3553 - Type 1 diabetes mellitus with stable proliferative diabetic retinopathy, bilateral (7) Diabetic nephropathy: Code(s): E11.21 - Type 2 diabetes mellitus with diabetic nephropathy Category: Medical Qualifiers: Diabetes mellitus type: type 1 Qualified Code(s): E10.21 - Type 1 diabetes mellitus with diabetic nephropathy (8) Lipid disorder: Code(s): E78.9 - Disorder of lipoprotein metabolism, unspecified Category: Medical (9) Chronic GERD: Comment: Dietary modifications, opportunity for improvement Code(s): K21.9 - Gastro-esophageal reflux disease without esophagitis Category: Medical (10) Obesity due to excess calories: Code(s): E66.09 - Other obesity due to excess calories Category: Medical Qualifiers: Body mass index: BMI 38.0-38.9 Obesity classification: adult class 2 (BMI 35 - 39.9) Serious obesity comorbidity presence: with serious comorbidity Qualified Code(s): E66.01 - Morbid (severe) obesity due to excess calories; Z68.38 - Body mass index [BMI] 38.0-38.9, adult (11) BPH (benign prostatic hyperplasia): Code(s): N40.0 - Benign prostatic hyperplasia without lower urinary tract symptoms Category: Medical Qualifiers: Lower urinary tract symptom detail: urinary frequency Lower urinary tract symptom presence: symptoms present Qualified Code(s): N40.1 - Benign prostatic hyperplasia with lower urinary tract symptoms; R35.0 - Frequency of micturition (12) Hypertension, essential: Code(s): I10 - Essential (primary) hypertension Category: Medical (13) Pain management: Code(s): R52 - Pain, unspecified Category: Medical (14) Chronic pain of both ears: Code(s): H92.03 - Otalgia, bilateral; G89.29 - Other chronic pain Category: Medical (15) Nasal congestion: Code(s): R09.81 - Nasal congestion Category: Medical Plan Physical exam appointment Patient has seen cognos bi administrator 2022, note reviewed Colonoscopy/EGD was ordered, however I do not see that patient went for it Requesting a new referral to pump service supervisor which I have placed Labs were done in October, reviewed A1c is in 7 range Patient has a nephropathy which is stable Medication list reviewed Taking Percocet for multiple joint osteoarthritis Patient has been evaluated by pain management [facility] and has had procedure done Which did not help him Complaining of discomfort left ear On examination his ear is cleaned but there is dull light reflex both side Patient was instructed to stop using Q-tips He has chronic nasal congestion as well, I am treating him with the Flonase nasal spray I am sending azithromycin and 5 day course of prednisone We will re-evaluate when he returns in 4 weeks for his narcotic medication refill Need to lose weight BMI is elevated Follow-up 1 month Orders: Orders Influenza [id number] Immunization Today Z23 - Encounter for immunization Referrals Podiatry Referral M79.671 - Pain in right foot, M79.672 - Pain in left foot, R20.2 - Paresthesia of skin Medications: New prednisone 10 mg PO DAILY 5 tabs 0RF 5 days azithromycin Take 2 tablets today then 1 daily 250 mg PO ONCE 6 tabs 0RF 5 days J06.9 - Acute upper respiratory infection, unspecified fluticasone propionate 50 mcg/actuation (Allergy Relief (fluticasone)) administer into each nostril 1 spray intranasal DAILY 1 mL 0RF 30 days R09.81 - Nasal congestion Refilled oxycodone-acetaminophen 5-325 mg (Percocet) Partial Fill upon patient request. 1 tab PO Q8H PRN 60 tabs 0RF pain M13.0 - Polyarthritis, unspecified, M25.511 - Pain in right shoulder, M47.816 - Spondylosis without myelopathy or radiculopathy, lumbar region
== END 2023-12-22 11:45 | disposition home or self-care (01) ==
PROVIDERS: PCP Internal Medicine; Visit Provider Internal Medicine
DX: Z00.01 Encounter for general adult medical examination with abnormal findings (principal); E10.3553 Type 1 diabetes mellitus with stable proliferative diabetic retinopathy, bilateral; E10.21 Type 1 diabetes mellitus with diabetic nephropathy; E66.01 Morbid (severe) obesity due to excess calories; Z68.38 Body mass index [BMI] 38.0-38.9, adult; Z23 Encounter for immunization; R20.2 Paresthesia of skin; M79.671 Pain in right foot; M79.672 Pain in left foot; M53.3 Sacrococcygeal disorders, not elsewhere classified; M79.18 Myalgia, other site; E78.9 Disorder of lipoprotein metabolism, unspecified

== ENCOUNTER → 2023-12-22 11:19 | Outpatient (BNVA) | payer OTHER, SELFPAY | PROVIDERS: PCP Internal Medicine; Visit Provider Internal Medicine | DX: Z00.01 Encounter for general adult medical examination with abnormal findings (principal); Z23 Encounter for immunization; R20.2 Paresthesia of skin; M79.671 Pain in right foot; M79.672 Pain in left foot; M53.3 Sacrococcygeal disorders, not elsewhere classified; M79.18 Myalgia, other site; E10.3553 Type 1 diabetes mellitus with stable proliferative diabetic retinopathy, bilateral; E10.21 Type 1 diabetes mellitus with diabetic nephropathy; E78.9 Disorder of lipoprotein metabolism, unspecified; K21.9 Gastro-esophageal reflux disease without esophagitis; E66.01 Morbid (severe) obesity due to excess calories; Z68.38 Body mass index [BMI] 38.0-38.9, adult; R35.0 Frequency of micturition; I10 Essential (primary) hypertension; H92.03 Otalgia, bilateral; G89.29 Other chronic pain; R09.81 Nasal congestion; Z71.3 Dietary counseling and surveillance | CPT/HCPCS: 90471; 90656; 99212; 99396 ==

== ENCOUNTER 2024-01-21 09:17 | Outpatient (AMB) | payer OTHER, SELFPAY ==
[2024-01-21 09:23] VITALS: BP 122/60; PULSE 81; O2SAT 98; BMI 38.9
--- NOTE | 2024-01-21 09:23 | A.OFFPC_ITS ---
Vital Signs 01/21/24 09:23 Height 5 ft 7 in Weight 248 lb 4 oz BMI 38.9 BP 122/60 Blood Pressure Location Rt brachial Position Sitting Pulse 81 Pulse Source Pulse Oximeter Pulse Oximetry (%) 98 Oxygen Delivery Method Room Air Intake Visit Reasons: Rsched from 01/24 - 1M Follow -Up Allergies No Known Allergies Allergy (Verified 01/21/24 09:26) Medication List - Last Reconciled 01/21/24 by Shawn Johnson MD amlodipine-benazepril 10-20 mg 1 cap PO DAILY aspirin (Adult Low Dose Aspirin) 81 mg PO DAILY atorvastatin 10 mg PO BEDTIME bisacodyl (Dulcolax (bisacodyl)) 20 mg (4 x 5 mg) PO ONCE 1 day blood sugar diagnostic (FreeStyle Lite Strips) USE TO CHECK BLOOD SUGAR 3 TIMES DAILY: FASTING AND BEFORE MEALS cholecalciferol (vitamin D3) 25 mcg PO DAILY 90 days dorzolamide-timolol 22.3-6.8 mg/mL 1 drp ophthalmic (eye) BID dulaglutide (Trulicity) 4.5 mg (0.5 mL) subcut QWEEK 90 days flash glucose sensor (FreeStyle Ye 2 Sensor kit) Use with sensor to monitor blood sugar TID and as needed for s/s hypo/hyperglycemia fluticasone propionate 50 mcg/actuation (Allergy Relief (fluticasone)) 1 spray intranasal DAILY 30 days FreeStyle Ye 2 [place] (flash glucose scanning reader) Use with sensor to monitor blood sugar TID and as needed for s/s hypo/hyperglycemia NS FreeStyle Lite Meter (blood-glucose meter) Use to check blood sugar 4 times daily, fasting and AC NS insulin aspart U-100 (Novolog FlexPen U-100 Insulin aspart) 15 units (0.15 mL) subcut TID 90 days [insulin pen needles 4 times a day] lamotrigine 100 mg PO BID lancets (FreeStyle Lancets) Use to check blood sugar QID, fasting and AC Lantus Solostar U-100 Insulin (insulin glargine) subcutaneously 2 times a day; 50 units at night and 20 units in the morning 90 days NS levothyroxine 50 mcg PO DAILY metoclopramide HCl (Reglan) 10 mg PO Q6H 7 days oxycodone-acetaminophen 5-325 mg (Percocet) 1 tab PO Q8H PRN pantoprazole 20 mg PO DAILY polyethylene glycol 3350 (Miralax) 238 grams PO ONCE PRN 1 day Tobacco use date assessed: 01/21/24 Dental Screening Dental Screen Date: 01/21/24 Did you have a dental visit in the last 12 months?: Yes Did you have a dental problem in the last 6 months where you did not have access to dental care?: No Was dental information given to patient?: Patient has dentist HPI Rsched from 01/24 - 1M Follow -Up HPI Details Patient is 63-year-old gentleman came in today for his monthly visit for pain medication refill Taking Percocet for multiple joint osteoarthritis Patient has been evaluated by pain management [facility] and has had procedure done Which did not help him patient is currently taking Percocet 2 times a day, he gets 60 tablets every month Complying with the treatment plan no signs of abuse He is feeling better taking medication. [facility] Medical History Hypothyroid Glaucoma Chronic SI joint pain Lumbar radiculopathy Neuropathy BPH (benign prostatic hyperplasia) Elevated cholesterol GERD (gastroesophageal reflux disease) CKD (chronic kidney disease) Diabetes HTN (hypertension) Surgical History Hx of cataract surgery History of surgery on lower extremity History of shoulder surgery Family History Father Diabetes Hypertension Cancer Mother Hypertension Diabetes Social History Housing: House Patient Tobacco Use Status: Never used Tobacco e-Cigarette/Vaping Use: Never Used service: No Current occupational status: disabled Cognitive needs: No Hearing needs: No Vision needs: Yes Questionnaire Thrive Questionnaire Date Thrive assessed: 01/21/24 I am a: Patient What is your living situation today?: I have a steady place to live Within the past 12 months, did the food you bought not last and you didn't have the money to get more?: Sometimes True Within the past 12 months, did you worry whether your food would run out before you got money to buy more?: Often true Do you have trouble paying for medicines?: No Do you have trouble getting transportation to medical appointments?: No Do you have trouble paying your heating and electricity bill?: No Do you have trouble taking care of your child, family member or friend?: I choose not to answer this question Do you have trouble with day-to-day activities such as bathing, preparing meals, shopping, managing finances, etc.?: No Are you currently unemployed and looking for a job?: No Are you interested in more education?: No Please select the resources that you would like help with: Transportation Currently or been in a relationship where the following occur: I choose not to answer THRIVE Score: 2 AUDIT C Alcohol Use Questionnaire (AUDIT-C) 1. How often do you have a drink containing alcohol?: Never 3. How often do you have six or more drinks on one occasion?: Never Total Score: 0 Score Reviewed/Action Taken: Yes AMINATA-7 AMB Questionnaire AMINATA-7 Date AMINATA - 7 assessed: 11/26/23 Source: Developed by Drs. Josiah Bailey, Gema Zimmerman, Brian Jo and colleagues, with an educational lovely from [employer]. Review of Systems Const Denies chills and Denies fever(s) ENT Denies epistaxis and Denies nasal discharge Card Denies chest pain Resp Denies chest congestion, Denies cough and Denies hemoptysis GI Denies diarrhea and Denies nausea Skin/Breast Denies rash Neuro Reports no additional complaints Psych Reports no additional complaints Endo Reports no additional complaints Physical exam (Primary Care) Vital Signs: Last Vital Signs Pulse 81 01/21/24 09:23 BP 122/60 01/21/24 09:23 Pulse Ox 98 01/21/24 09:23 Oxygen Delivery Method Room Air 01/21/24 09:23 BMI result Body Mass Index 38.9 Tobacco/Smoking Status: Tobacco use Status Tobacco use date assessed 01/21/24 01/21/24 09:28 Patient Tobacco Use Status Never used Tobacco 01/21/24 09:28 e-Cigarette/Vaping Use Never Used 01/21/24 09:28 Thrive Assessment: Date of Thrive Assessment Date Thrive assessed 01/21/24 01/21/24 09:28 Currently or been in a relationship where the following occur: I choose not to a nswer Const General: cooperative, comfortable and no acute distress Orientation/consciousness: patient oriented x3 HENMT Head: Yes normocephalic Eyes General: appearance normal, both eyes and all related structures Neck Neck: Yes supple Resp Effort & Inspection: normal respiratory effort, no cough and no stridor Cardio Rhythm: regular rhythm Heart sounds: S1 normal heart sound present and S2 normal heart sound present Skin General skin exam: turgor normal Neuro General: patient oriented x3, tone normal and moves all extremities Coding Level of Care Code Est Pt Level 3 (12129) Diagnoses Sacroiliac joint dysfunction of left side M53.3 Pain in both feet M79.671; M79.672 Myofascial pain syndrome M79.18 Pain management R52 Assessment & Plan Assessment & Plan (1) Sacroiliac joint dysfunction of left side: Code(s): M53.3 - Sacrococcygeal disorders, not elsewhere classified Category: Medical (2) Pain in both feet: Code(s): M79.671 - Pain in right foot; M79.672 - Pain in left foot Category: Medical (3) Myofascial pain syndrome: Code(s): M79.18 - Myalgia, other site Category: Medical (4) Pain management: Code(s): R52 - Pain, unspecified Category: Medical Plan Patient is 63-year-old gentleman came in today for his monthly visit for pain me dication refill Taking Percocet for multiple joint osteoarthritis Patient has been evaluated by pain management [facility] and has had procedure done Which did not help him patient is currently taking Percocet 2 times a day, he gets 60 tablets every month Complying with the treatment plan no signs of abuse He is feeling better taking medication. Medications: Refilled oxycodone-acetaminophen 5-325 mg (Percocet) Partial Fill upon patient request. 1 tab PO Q8H PRN 60 tabs 0RF pain M13.0 - Polyarthritis, unspecified, M25.511 - Pain in right shoulder, M47.816 - Spondylosis without myelopathy or radiculopathy, lumbar region
== END 2024-01-21 09:33 | disposition home or self-care (01) ==
LOC: HO.HMCC 09:18
PROVIDERS: PCP Internal Medicine; Visit Provider Internal Medicine
DX: M53.3 Sacrococcygeal disorders, not elsewhere classified (principal); M79.671 Pain in right foot; M79.672 Pain in left foot; M79.18 Myalgia, other site

== ENCOUNTER → 2024-01-21 09:17 | Outpatient (BNVA) | payer OTHER, SELFPAY | PROVIDERS: PCP Internal Medicine; Visit Provider Internal Medicine | DX: M53.3 Sacrococcygeal disorders, not elsewhere classified (principal); M79.671 Pain in right foot; M79.672 Pain in left foot; M79.18 Myalgia, other site | CPT/HCPCS: 99212 ==

== ENCOUNTER 2024-02-16 10:59 | Outpatient (AMB) | payer OTHER, SELFPAY ==
[2024-02-16 11:12] VITALS: BP 122/58; PULSE 83; O2SAT 96; BMI 39.3
--- NOTE | 2024-02-16 11:12 | A.OFFPC_ITS ---
Vital Signs 02/16/24 11:12 Height 5 ft 7 in Weight 251 lb BMI 39.3 BP 122/58 L Blood Pressure Location Rt brachial Position Sitting Pulse 83 Pulse Source Pulse Oximeter Pulse Oximetry (%) 96 Oxygen Delivery Method Room Air Intake Visit Reasons: 1m follow up Allergies No Known Allergies Allergy (Verified 02/16/24 11:13) Medication List - Last Reconciled 02/16/24 by Shawn Johnson MD amlodipine-benazepril 10-20 mg 1 cap PO DAILY aspirin (Adult Low Dose Aspirin) 81 mg PO DAILY atorvastatin 10 mg PO BEDTIME bisacodyl (Dulcolax (bisacodyl)) 20 mg (4 x 5 mg) PO ONCE 1 day blood sugar diagnostic (FreeStyle Lite Strips) USE TO CHECK BLOOD SUGAR 3 TIMES DAILY: FASTING AND BEFORE MEALS cholecalciferol (vitamin D3) 25 mcg PO DAILY 90 days dorzolamide-timolol 22.3-6.8 mg/mL 1 drp ophthalmic (eye) BID dulaglutide (Trulicity) 4.5 mg (0.5 mL) subcut QWEEK 90 days flash glucose sensor (FreeStyle Ye 2 Sensor kit) Use with sensor to monitor blood sugar TID and as needed for s/s hypo/hyperglycemia fluticasone propionate 50 mcg/actuation (Allergy Relief (fluticasone)) 1 spray intranasal DAILY 30 days FreeStyle Ye 2 [place] (flash glucose scanning reader) Use with sensor to monitor blood sugar TID and as needed for s/s hypo/hyperglycemia NS FreeStyle Lite Meter (blood-glucose meter) Use to check blood sugar 4 times daily, fasting and AC NS insulin aspart U-100 (Novolog FlexPen U-100 Insulin aspart) 15 units (0.15 mL) subcut TID 90 days [insulin pen needles 4 times a day] lamotrigine 100 mg PO BID lancets (FreeStyle Lancets) Use to check blood sugar QID, fasting and AC Lantus Solostar U-100 Insulin (insulin glargine) subcutaneously 2 times a day; 50 units at night and 20 units in the morning 90 days NS levothyroxine 50 mcg PO DAILY metoclopramide HCl (Reglan) 10 mg PO Q6H 7 days oxycodone-acetaminophen 5-325 mg (Percocet) 1 tab PO Q8H PRN pantoprazole 20 mg PO DAILY polyethylene glycol 3350 (Miralax) 238 grams PO ONCE PRN 1 day Tobacco use date assessed: 02/16/24 Dental Screening Dental Screen Date: 02/16/24 Did you have a dental visit in the last 12 months?: Yes Did you have a dental problem in the last 6 months where you did not have access to dental care?: No Was dental information given to patient?: Patient has dentist HPI 1m follow up HPI Details Chief Complaint Persistent pain in legs and shoulder. Assessment and Plan 63-year-old male with a history of perip heral vascular disease and diabetic neuropathy presenting with persistent leg and shoulder pain. The patient's leg pain, exacerbated by his diabetic neuropathy, is managed with Percocet twice daily but remains suboptimal as the medication provides temporary relief with recurring pain after a few hours. He also reports shoulder pain, suggestive of potential osteoarthritis, which has not yet been evaluated by an recreational specialist. His diabetes is stable with insulin therapy and Trulicity, as reflected by a recent hemoglobin A1c of 7.5%. The patient's nephropathy restricts the use of NSAIDs, warranting careful management of pain with opioid medication. The patient's thyroid function is controlled with levothyroxine therapy, and allergic rhinitis is stable with current treatment. 1. Allergic Rhinitis Continue current management with intranasal flonase medication and assess for seasonal variation in symptoms. 2. Peripheral Vascular Disease Patient has been evaluated by vascular specialist. 3. Diabetic Neuropathy Manage with gabapentin 300 mg daily to optimize symptom control. Regularly evaluate pain levels and adjust as needed. 4. Hypothyroidism Continue levothyroxine therapy at 50 micrograms daily with periodic thyroid function tests to ensure adequate dosing. 5. Diabetic Nephropathy Ongoing monitoring with Dr. Garcia at [facility]. Regular laboratory testing, including serum creatinine, which was 1.61 at last evaluation in October. 6. Hyperlipidemia Continue atorvastatin therapy for lipid control. Monitor lipid profile periodically to assess efficacy. 7. Multiple Joint Osteoarthritis Refer to an recreational specialist for further evaluation of the shoulder pain. Consider physical therapy and potential for corticosteroid injections if recommended. 8. Type 2 Diabetes Mellitus : he is taking Lantus to 54 the morning and 20 at night Lispro insulin 3 times a day after checking the sugar follow the sliding scale Continue [place], Problem List - Peripheral Vascular Disease - Diabetic Neuropathy - Diabetic Nephropathy - Multiple Joint Osteoarthritis - Allergic Rhinitis - Hypothyroidism - Hyperlipidemia - Type 2 Diabetes Mellitus Patient Instructions - Take Percocet as prescribed for pain m anagement. - Schedule and attend an orthopedic spec ialist appointment for shoulder pain evaluation. - Complete ordered blood tests prior to the next visit to monitor renal function and diabetic control. - Maintain current diabetes management r egimen and adhere to prescribed medication dosing. - Monitor for any presenting symptoms or side effects and report changes promptly. - Ensure compliance with all prescribed medications, including levothyroxine, gabapentin, atorvastatin. - Return monthly for Percocet refill unl ess otherwise directed. [facility] Medical History Hypothyroid Glaucoma Chronic SI joint pain Lumbar radiculopathy Neuropathy BPH (benign prostatic hyperplasia) Elevated cholesterol GERD (gastroesophageal reflux disease) CKD (chronic kidney disease) Diabetes HTN (hypertension) Surgical History Hx of cataract surgery History of surgery on lower extremity History of shoulder surgery Family History Father Diabetes Hypertension Cancer Mother Hypertension Diabetes Social History Housing: House Patient Tobacco Use Status: Never used Tobacco e-Cigarette/Vaping Use: Never Used service: No Current occupational status: disabled Cognitive needs: No Hearing needs: No Vision needs: Yes Questionnaire Thrive Questionnaire Date Thrive assessed: 10/26/23 I am a: Patient What is your living situation today?: I have a steady place to live Within the past 12 months, did the food you bought not last and you didn't have the money to get more?: Sometimes True Within the past 12 months, did you worry whether your food would run out before you got money to buy more?: Often true Do you have trouble paying for medicines?: No Do you have trouble getting transportation to medical appointments?: No Do you have trouble paying your heating and electricity bill?: No Do you have trouble taking care of your child, family member or friend?: I choose not to answer this question Do you have trouble with day-to-day activities such as bathing, preparing meals, shopping, managing finances, etc.?: No Are you currently unemployed and looking for a job?: No Are you interested in more education?: No Please select the resources that you would like help with: Transportation Currently or been in a relationship where the following occur: I choose not to answer THRIVE Score: 2 AUDIT C Alcohol Use Questionnaire (AUDIT-C) 1. How often do you have a drink containing alcohol?: Never 3. How often do you have six or more drinks on one occasion?: Never Total Score: 0 Score Reviewed/Action Taken: Yes AMINATA-7 AMB Questionnaire AMINATA-7 Date AMINATA - 7 assessed: 11/26/23 Source: Developed by Drs. Josiah Bailey, Gema Zimmerman, Brian Jo and colleagues, with an educational lovely from [employer]. Review of Systems Const Denies chills and Denies fever(s) ENT Denies epistaxis and Denies nasal discharge Card Denies chest pain Resp Denies chest congestion, Denies cough and Denies hemoptysis GI Denies diarrhea and Denies nausea Skin/Breast Denies rash Neuro Reports no additional complaints Psych Reports no additional complaints Endo Reports no additional complaints Physical exam (Primary Care) Vital Signs: Last Vital Signs Pulse 83 02/16/24 11:12 BP 122/58 L 02/16/24 11:12 Pulse Ox 96 02/16/24 11:12 Oxygen Delivery Method Room Air 02/16/24 11:12 BMI result Body Mass Index 39.3 Tobacco/Smoking Status: Tobacco use Status Tobacco use date assessed 02/16/24 02/16/24 11:14 Patient Tobacco Use Status Never used Tobacco 02/16/24 11:14 e-Cigarette/Vaping Use Never Used 02/16/24 11:14 Thrive Assessment: Date of Thrive Assessment Date Thrive assessed 10/26/23 02/16/24 11:14 Currently or been in a relationship where the following occur: I choose not to answer Const General: cooperative, comfortable and no acute distress Orientation/consciousness: patient oriented x3 HENKY Head: Yes normocephalic Eyes General: appearance normal, both eyes and all related structures Neck Neck: Yes supple Resp Effort & Inspection: normal respiratory effort, no cough and no stridor Cardio Rhythm: regular rhythm Heart sounds: S1 normal heart sound present and S2 normal heart sound present Skin General skin exam: turgor normal Neuro General: patient oriented x3, tone normal and moves all extremities Extrem Other: Bilateral shoulder pain with limited range of motion left more than right Coding Level of Care Code Est Pt Level 5 (23853) Complex EM visit Add On G2211 Diagnoses 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 E10.355 Diabetes mellitus complication detail: with diabetic retinopathy Diabetes mellitus complication status: with ophthalmic complications Diabetic retinopathy severity: with proliferative retinopathy Laterality: bilateral Proliferative retinopathy type: stable Chronic pain of both shoulders M25.511; M25.512; G89.29 Chronicity: chronic Sacroiliac joint dysfunction of left side M53.3 Pain in both feet M79.671; M79.672 Myofascial pain syndrome M79.18 Pain management R52 Paresthesia of both feet R20.2 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 E10.21 Diabetes mellitus type: type 1 Lipid disorder E78.9 Chronic GERD K21.9 Class 2 severe obesity due to excess calories with serious comorbidity and body mass index (BMI) of 38.0 to 38.9 in adult E66.01; Z68.38 Body mass index: BMI 38.0-38.9 Obesity classification: adult class 2 (BMI 35 - 39.9) Serious obesity comorbidity presence: with serious comorbidity Benign prostatic hyperplasia with urinary frequency N40.1; R35.0 Lower urinary tract symptom detail: urinary frequency Lower urinary tract symptom presence: symptoms present Hypertension, essential I10 Chronic pain of both ears H92.03; G89.29 Nasal congestion R09.81 Assessment & Plan Assessment & Plan (1) Insulin dependent type 1 diabetes mellitus: Code(s): E10.9 - Type 1 diabetes mellitus without complications Category: Medical Qualifiers: Diabetes mellitus complication detail: with diabetic retinopathy Diab etes mellitus complication status: with ophthalmic complications Diabetic retinopathy severity: with proliferative retinopathy Laterality: bilateral Proliferative retinopathy type: stable Qualified Code(s): E10.3552 - Type 1 diabetes mellitus with stable proliferative diabetic retinopathy, bilateral (2) Bilateral shoulder pain: Code(s): M25.511 - Pain in right shoulder; M25.512 - Pain in left shoulder Category: Medical Qualifiers: Chronicity: chronic Qualified Code(s): M25.511 - Pain in right shoulder; M25.512 - Pain in left shoulder; G89.29 - Other chronic pain (3) Sacroiliac joint dysfunction of left side: Code(s): M53.3 - Sacrococcygeal disorders, not elsewhere classified Category: Medical (4) Pain in both feet: Code(s): M79.671 - Pain in right foot; M79.672 - Pain in left foot Category: Medical (5) Myofascial pain syndrome: Code(s): M79.18 - Myalgia, other site Category: Medical (6) Pain management: Code(s): R52 - Pain, unspecified Category: Medical (7) Paresthesia of both feet: Code(s): R20.2 - Paresthesia of skin Category: Medical (8) Diabetic nephropathy: Code(s): E11.21 - Type 2 diabetes mellitus with diabetic nephropathy Category: Medical Qualifiers: Diabetes mellitus type: type 1 Qualified Code(s): E10.21 - Type 1 diabetes mellitus with diabetic nephropathy (9) Lipid disorder: Code(s): E78.9 - Disorder of lipoprotein metabolism, unspecified Category: Medical (10) Chronic GERD: Comment: Dietary modifications, opportunity for improvement Code(s): K21.9 - Gastro-esophageal reflux disease without esophagitis Category: Medical (11) Obesity due to excess calories: Code(s): E66.09 - Other obesity due to excess calories Category: Medical Qualifiers: Body mass index: BMI 38.0-38.9 Obesity classification: adult class 2 (BMI 35 - 39.9) Serious obesity comorbidity presence: with serious comorbidity Qualified Code(s): E66.01 - Morbid (severe) obesity due to excess calories; Z68.38 - Body mass index [BMI] 38.0-38.9, adult (12) BPH (benign prostatic hyperplasia): Code(s): N40.0 - Benign prostatic hyperplasia without lower urinary tract symptoms Category: Medical Qualifiers: Lower urinary tract symptom detail: urinary frequency Lower urinary tract symptom presence: symptoms present Qualified Code(s): N40.1 - Benign prostatic hyperplasia with lower urinary tract symptoms; R35.0 - Frequency of micturition (13) Hypertension, essential: Code(s): I10 - Essential (primary) hypertension Category: Medical (14) Chronic pain of both ears: Code(s): H92.03 - Otalgia, bilateral; G89.29 - Other chronic pain Category: Medical (15) Nasal congestion: Code(s): R09.81 - Nasal congestion Category: Medical Plan Chief Complaint Persistent pain in legs and shoulder. Assessment and Plan 63-year-old male with a history of peripheral vascular disease and diabetic neuropathy presenting with persistent leg and shoulder pain. The patient's leg pain, exacerbated by his diabetic neuropathy, is managed with Percocet twice daily but remains suboptimal as the medication provides temporary relief with recurring pain after a few hours. He also reports shoulder pain, suggestive of potential osteoarthritis, which has not yet been evaluated by an recreational specialist. His diabetes is stable with insulin therapy and Trulicity, as reflected by a recent hemoglobin A1c of 7.5%. The patient's nephropathy restricts the use of NSAIDs, warranting careful management of pain with opioid medication. The patient's thyroid function is controlled with levothyroxine therapy, and allergic rhinitis is stable with current treatment. 1. Allergic Rhinitis Continue current management with intranasal flonase medication and assess for seasonal variation in symptoms. 2. Peripheral Vascular Disease Patient has been evaluated by vascular specialist. 3. Diabetic Neuropathy Manage with gabapentin 300 mg daily to optimize symptom control. Regularly evaluate pain levels and adjust as needed. 4. Hypothyroidism Continue levothyroxine therapy at 50 micrograms daily with periodic thyroid function tests to ensure adequate dosing. 5. Diabetic Nephropathy Ongoing monitoring with Dr. Garcia at [facility]. Regular laboratory testing, including serum creatinine, which was 1.61 at last evaluation in October. 6. Hyperlipidemia Continue atorvastatin therapy for lipid control. Monitor lipid profile periodically to assess efficacy. 7. Multiple Joint Osteoarthritis Refer to an recreational specialist for further evaluation of the shoulder pain. Consider physical therapy and potential for corticosteroid injections if recommended. 8. Type 2 Diabetes Mellitus : he is taking Lantus to 54 the morning and 20 at night Lispro insulin 3 times a day after checking the sugar follow the sliding scale Continue Trulicity 9. GERD stable Problem List - Peripheral Vascular Disease - Diabetic Neuropathy - Diabetic Nephropathy - Multiple Joint Osteoarthritis - Allergic Rhinitis - Hypothyroidism - Hyperlipidemia - Type 2 Diabetes Mellitus -GERD Patient Instructions - Take Percocet as prescribed for pain management. - Schedule and attend an recreational specialist appointment for shoulder pain evaluation. - Complete ordered blood tests prior to the next visit to monitor renal function and diabetic control. - Maintain current diabetes management regimen and adhere to prescribed medication dosing. - Monitor for any presenting symptoms or side effects and report changes promptly. - Ensure compliance with all prescribed medications, including levothyroxine, gabapentin, atorvastatin. - Return monthly for Percocet refill unless otherwise directed. 45 minutes spent in care of this patient including going over previous notes, labs, consultation notes Orders: Referrals Orthopedics Referral M25.511 - Pain in right shoulder, M25.512 - Pain in left shoulder Medications: Refilled oxycodone-acetaminophen 5-325 mg (Percocet) Partial Fill upon patient request. 1 tab PO Q8H PRN 60 tabs 0RF pain M13.0 - Polyarthritis, unspecified, M25.511 - Pain in right shoulder, M47.816 - Spondylosis without myelopathy or radiculopathy, lumbar region levothyroxine 50 mcg PO DAILY 90 tabs 2RF
== END 2024-02-16 11:32 | disposition home or self-care (01) ==
PROVIDERS: PCP Internal Medicine; Visit Provider Internal Medicine
DX: E10.3553 Type 1 diabetes mellitus with stable proliferative diabetic retinopathy, bilateral (principal); E10.21 Type 1 diabetes mellitus with diabetic nephropathy; E66.01 Morbid (severe) obesity due to excess calories; Z68.38 Body mass index [BMI] 38.0-38.9, adult; M25.511 Pain in right shoulder; M25.512 Pain in left shoulder; G89.29 Other chronic pain; M53.3 Sacrococcygeal disorders, not elsewhere classified; M79.671 Pain in right foot; M79.672 Pain in left foot; M79.18 Myalgia, other site

== ENCOUNTER → 2024-02-16 10:59 | Outpatient (BNVA) | payer OTHER, SELFPAY | PROVIDERS: PCP Internal Medicine; Visit Provider Internal Medicine | DX: E10.3553 Type 1 diabetes mellitus with stable proliferative diabetic retinopathy, bilateral (principal); M25.511 Pain in right shoulder; M25.512 Pain in left shoulder; G89.29 Other chronic pain; M53.3 Sacrococcygeal disorders, not elsewhere classified; M79.671 Pain in right foot; M79.672 Pain in left foot; M79.18 Myalgia, other site; R20.2 Paresthesia of skin; E10.21 Type 1 diabetes mellitus with diabetic nephropathy; E78.9 Disorder of lipoprotein metabolism, unspecified; K21.9 Gastro-esophageal reflux disease without esophagitis; E66.01 Morbid (severe) obesity due to excess calories; Z68.38 Body mass index [BMI] 38.0-38.9, adult; R35.0 Frequency of micturition; I10 Essential (primary) hypertension; H92.03 Otalgia, bilateral; Z71.3 Dietary counseling and surveillance | CPT/HCPCS: 99212 ==

== ENCOUNTER 2024-03-03 10:35 | Outpatient (REF) | payer OTHER, SELFPAY ==
[2024-03-03 13:43] LABS: Creatinine Urine 366.79 mg/dL
[2024-03-03 14:02] LABS: Alanine Aminotransferase 22 U/L (0-40); Albumin Level 3.9 g/dL (3.5-5.0); Alkaline Phosphatase 112 U/L (39-117); Anion Gap 10 (12-20); Aspartate Amino Transferase 30 U/L (5-37); Bilirubin Total 0.3 mg/dL (0.0-1.0); Blood Urea Nitrogen 15 mg/dL (9-16); Carbon Dioxide 23 mmol/L (22-29); Chloride 110 mmol/L (96-108); Estimated Glomerular Filt Rate 43; Glucose Random 92 mg/dL (60-115); Potassium 4.4 mmol/L (3.3-5.1); Sodium 139 mmol/L (135-145); Total Protein 7.2 g/dL (6.5-8.0)
[2024-03-03 14:05] LABS: Estimated Average Glucose 157 mg/dL; Hemoglobin A1C 284.7577 umol/L; Hemoglobin A1c % 7.1 % (<6.0); Total Hemoglobin (HGBA1C) 5252.8418 umol/L
[2024-03-03 14:07] LABS: TSH reflex Free T4 2.31 uIU/mL (0.32-4.0)
[2024-03-04 16:24] LABS: LDL Cholesterol Direct 34 mg/dL (<100)
== END 2024-03-03 10:36 | disposition home or self-care (01) ==
LOC: HO.HMGCLDS 10:35
PROVIDERS: PCP Internal Medicine; Visit Provider Internal Medicine
DX: Z13.89 Encounter for screening for other disorder (principal)
CPT/HCPCS: 36415; 80053; 82043; 82570; 83036; 83721; 84443

== ENCOUNTER 2024-03-10 08:45 | Outpatient (REF) | payer OTHER, SELFPAY | END 2024-03-10 08:46 | disposition home or self-care (01) | LOC: HO.HOSX 08:45 | PROVIDERS: Visit Provider Physician Assistant | DX: M25.512 Pain in left shoulder (principal); M25.511 Pain in right shoulder; M77.8 Other enthesopathies, not elsewhere classified | CPT/HCPCS: 20610; 73030; 99202; 99212; J1010; J2003 ==

== ENCOUNTER 2024-03-10 09:26 | Outpatient (AMB) | payer OTHER, SELFPAY ==
--- NOTE | 2024-03-10 09:41 | A.OFFVIS_ITS ---
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 Patient reports his pain has been present for a while, the past 5 months his pain has increases. He has constant pain and clunking in his shoulder. States his left shoulder causes him the most discomfort and makes it difficult to get comfortable to sleep. He has tried and failed PT. Hx of cortisone injection however this only provided him with 3-5 days of relief. Hx of RTC repair insure which side, about 10 years ago. Allergies No Known Allergies Allergy (Verified 03/10/24 09:45) Medication List - Last Reconciled 03/10/24 by Gee Still PA-C amlodipine-benazepril 10-20 mg 1 cap PO DAILY aspirin (Adult Low Dose Aspirin) 81 mg PO DAILY atorvastatin 10 mg PO BEDTIME bisacodyl (Dulcolax (bisacodyl)) 20 mg (4 x 5 mg) PO ONCE 1 day blood sugar diagnostic (FreeStyle Lite Strips) USE TO CHECK BLOOD SUGAR 3 TIMES DAILY: FASTING AND BEFORE MEALS cholecalciferol (vitamin D3) 25 mcg PO DAILY 90 days dorzolamide-timolol 22.3-6.8 mg/mL 1 drp ophthalmic (eye) BID dulaglutide (Trulicity) 4.5 mg (0.5 mL) subcut QWEEK 90 days flash glucose sensor (FreeStyle Ye 2 Sensor kit) Use with sensor to monitor blood sugar TID and as needed for s/s hypo/hyperglycemia fluticasone propionate 50 mcg/actuation (Allergy Relief (fluticasone)) 1 spray intranasal DAILY 30 days FreeStyle Ye 2 [place] (flash glucose scanning reader) Use with sensor to monitor blood sugar TID and as needed for s/s hypo/hyperglycemia NS FreeStyle Lite Meter (blood-glucose meter) Use to check blood sugar 4 times daily, fasting and AC NS insulin aspart U-100 (Novolog FlexPen U-100 Insulin aspart) 15 units (0.15 mL) subcut TID 90 days [insulin pen needles 4 times a day] lamotrigine 100 mg PO BID lancets (FreeStyle Lancets) Use to check blood sugar QID, fasting and AC Lantus Solostar U-100 Insulin (insulin glargine) subcutaneously 2 times a day; 50 units at night and 20 units in the morning 90 days NS levothyroxine 50 mcg PO DAILY metoclopramide HCl (Reglan) 10 mg PO Q6H 7 days oxycodone-acetaminophen 5-325 mg (Percocet) 1 tab PO Q8H PRN pantoprazole 20 mg PO DAILY polyethylene glycol 3350 (Miralax) 238 grams PO ONCE PRN 1 day HPI 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 He denies any injury in the past. He states he has limited ROM and worsening pain in his bilateral shoulders that is worse on his left side. He also experiences a ?clunking? in his shoulder. He is unable to sleep at night due to discomfort and pain. He denies any pain with lifting. He has tried physical therapy in the past without benefits. He had cortisone injection in the past which provided him relief for about 3-5 days. He has a history of RTC repair about 10 years ago. He has a history of diabetes. His sugar level was 56 this morning. [facility] Medical History Hypothyroid Glaucoma Chronic SI joint pain Lumbar radiculopathy Neuropathy BPH (benign prostatic hyperplasia) Elevated cholesterol GERD (gastroesophageal reflux disease) CKD (chronic kidney disease) Diabetes HTN (hypertension) Surgical History Hx of cataract surgery History of surgery on lower extremity History of shoulder surgery Family History Father Diabetes Hypertension Cancer Mother Hypertension Diabetes Social History Housing: House Patient Tobacco Use Status: Never used Tobacco e-Cigarette/Vaping Use: Never Used service: No Current occupational status: disabled Cognitive needs: No Hearing needs: No Vision needs: Yes Review of Systems Const All systems reviewed & are unremarkable except as noted in HPI and below Physical Exam Extrem Other: Bilateral shoulder: Normal to inspection. Tenderness over the bicipital groove and along the deltoid region of the shoulder. Forward flexion to 175, external rotation to 90, internal rotation to S1. He has significant weakness with RTC strength testing on left when compared to the contralateral side. Negative Gayle and cross body abduction. NVI. ? Results Reviewed Results Reviewed: Xrays were obtained in the office today and personally reviewed by me of renita shoulder show type 2 acromion on the left Assessment & Plan Assessment & Plan (1) Left shoulder tendonitis: Code(s): M77.8 - Other enthesopathies, not elsewhere classified Category: Medical (2) Right shoulder tendinitis: Code(s): M77.8 - Other enthesopathies, not elsewhere classified Category: Medical Plan We discussed options today, which include steroid injection. The patient did consent to move forward with the left shoulder injection, which was tolerated well. I recommended rest, ice, and elevation and OTC anti-inflammatories as needed for discomfort. We also discussed diabetes and the effect the steroid injection can have on their blood glucose levels; therefore, they will continue to monitor these very closely over the next 72 hours. If there are any concerns, they should report to the ED immediately An MRI of the left shoulder was ordered in the office today and we will follow up once the scan is complete to discuss the next step in his treatment. Orders: Orders MR shoulder LT wo con Today S46.009A - Unspecified injury of muscle(s) and tendon(s) of the rotator cuff of unspecified shoulder, initial encounter XR shoulder LT min 2V Today M25.512 - Pain in left shoulder XR shoulder RT min 2V Today M25.511 - Pain in right shoulder Patient Instructions: Scribed for Gee Still PA-C, by Kareem Avina ophthalmic medical assistant, on 03/10/2024 at 9:30 AM EST.? I, Gee Still PA-C, have personally reviewed and agree with the information entered by the scribe. Coding Level of Care Code New Pt Level 3 (33987) Complex EM visit Add On G2211 Diagnoses Left shoulder tendonitis M77.8 Right shoulder tendinitis M77.8
== END 2024-03-10 10:38 | disposition home or self-care (01) ==
PROVIDERS: PCP Internal Medicine; Visit Provider Physician Assistant
DX: M77.8 Other enthesopathies, not elsewhere classified (principal)
CPT/HCPCS: 99203; G2211

== ENCOUNTER 2024-03-10 10:45 | Outpatient (AMB) | payer OTHER, SELFPAY ==
[2024-03-10 11:12] VITALS: BP 118/58; PULSE 81; O2SAT 98; BMI 39.2
--- NOTE | 2024-03-10 11:12 | A.OFFPC_ITS ---
Vital Signs 03/10/24 11:12 Height 5 ft 7 in Weight 250 lb BMI 39.2 BP 118/58 L Blood Pressure Location Rt brachial Position Sitting Pulse 81 Pulse Source Pulse Oximeter Pulse Oximetry (%) 98 Oxygen Delivery Method Room Air Intake Visit Reasons: 4wk follow up Allergies No Known Allergies Allergy (Verified 03/10/24 11:17) Medication List - Last Reconciled 03/10/24 by Shawn Johnson MD amlodipine-benazepril 10-20 mg 1 cap PO DAILY aspirin (Adult Low Dose Aspirin) 81 mg PO DAILY atorvastatin 10 mg PO BEDTIME bisacodyl (Dulcolax (bisacodyl)) 20 mg (4 x 5 mg) PO ONCE 1 day blood sugar diagnostic (FreeStyle Lite Strips) USE TO CHECK BLOOD SUGAR 3 TIMES DAILY: FASTING AND BEFORE MEALS cholecalciferol (vitamin D3) 25 mcg PO DAILY 90 days dorzolamide-timolol 22.3-6.8 mg/mL 1 drp ophthalmic (eye) BID dulaglutide (Trulicity) 4.5 mg (0.5 mL) subcut QWEEK 90 days flash glucose sensor (FreeStyle Ye 2 Sensor kit) Use with sensor to monitor blood sugar TID and as needed for s/s hypo/hyperglycemia fluticasone propionate 50 mcg/actuation (Allergy Relief (fluticasone)) 1 spray intranasal DAILY 30 days FreeStyle Ye 2 [place] (flash glucose scanning reader) Use with sensor to monitor blood sugar TID and as needed for s/s hypo/hyperglycemia NS FreeStyle Lite Meter (blood-glucose meter) Use to check blood sugar 4 times daily, fasting and AC NS insulin aspart U-100 (Novolog FlexPen U-100 Insulin aspart) 15 units (0.15 mL) subcut TID 90 days [insulin pen needles 4 times a day] lamotrigine 100 mg PO BID lancets (FreeStyle Lancets) Use to check blood sugar QID, fasting and AC Lantus Solostar U-100 Insulin (insulin glargine) subcutaneously 2 times a day; 50 units at night and 20 units in the morning 90 days NS levothyroxine 50 mcg PO DAILY metoclopramide HCl (Reglan) 10 mg PO Q6H 7 days oxycodone-acetaminophen 5-325 mg (Percocet) 1 tab PO Q8H PRN pantoprazole 20 mg PO DAILY polyethylene glycol 3350 (Miralax) 238 grams PO ONCE PRN 1 day Tobacco use date assessed: 03/10/24 Dental Screening Dental Screen Date: 03/10/24 Did you have a dental visit in the last 12 months?: Yes Did you have a dental problem in the last 6 months where you did not have access to dental care?: No Was dental information given to patient?: Patient has dentist HPI 4wk follow up HPI Details History - bulleted - The patient is a 63-year-old male [facility] with Type 2 Diabetes Mellitus. - Diagnosed several years ago; managed w ith insulin. - Recent HbA1c is 7.1, indicating stable blood glucose control over the past three months. - Concurrent issues include nocturnal hy poglycemia. - Occurrences noted as sugar levels drop during the night, lowest recorded at 59 mg/dL, feeling shaky and sweaty upon awakening. - Consistent insulin usage, taking 15 un its three times a day, with instructions to adjust nighttime dosing. - The patient also has Stage 3A Chronic Kidney Disease. - Kidney impairment noted as stable with a creatinine level of 1.62. - Regular follow-up with a direct support professional caregiver. - Essential Hypertension is noted as a c ontributing factor. - Continues management with regular bertha toring. -obesity - chronic back pain multiple osteoarthri tis sides -pain management with narcotics -chronic GERD -BPH -diabetic neuropathy Problem List - Type 2 Diabetes Mellitus insulin depgarfield coronel - Stage 3A Chronic Kidney Disease - Essential Hypertension -obesity -diabetic neuropathy -chronic GERD -multiple joint osteoarthritis -chronic back pain Diagnostic results - Laboratory: HbA1c is 7.[address] able control of diabetes; Creatinine 1.62 reflects stable kidney function. [facility] of Care - Regular follow-up with direct support professional caregiver samir hamilton Chronic Kidney Disease. 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 - Neurological: Reports feeling shaky an d sweaty during hypoglycemic events. 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 Continue morning and afternoon, continue long-acting insulin as it is - Continue monitoring blood glucose leve ls three times daily and record on paper. - Bring recorded blood glucose levels to the next appointment. - Schedule and attend an upcoming endosc opy and colonoscopy on April 18. - Follow-up with direct support professional caregiver and other specialists as scheduled. -try to lose weight Follow-up 4 weeks PFS Medical History Hypothyroid Glaucoma Chronic SI joint pain Lumbar radiculopathy Neuropathy BPH (benign prostatic hyperplasia) Elevated cholesterol GERD (gastroesophageal reflux disease) CKD (chronic kidney disease) Diabetes HTN (hypertension) Surgical History Hx of cataract surgery History of surgery on lower extremity History of shoulder surgery Family History Father Diabetes Hypertension Cancer Mother Hypertension Diabetes Social History Housing: House Patient Tobacco Use Status: Never used Tobacco e-Cigarette/Vaping Use: Never Used service: No Current occupational status: disabled Cognitive needs: No Hearing needs: No Vision needs: Yes Questionnaire Thrive Questionnaire Date Thrive assessed: 03/10/24 I am a: Patient What is your living situation today?: I have a steady place to live Within the past 12 months, did the food you bought not last and you didn't have the money to get more?: Sometimes True Within the past 12 months, did you worry whether your food would run out before you got money to buy more?: Often true Do you have trouble paying for medicines?: No Do you have trouble getting transportation to medical appointments?: No Do you have trouble paying your heating and electricity bill?: No Do you have trouble taking care of your child, family member or friend?: I choose not to answer this question Do you have trouble with day-to-day activities such as bathing, preparing meals, shopping, managing finances, etc.?: No Are you currently unemployed and looking for a job?: No Are you interested in more education?: No Please select the resources that you would like help with: Transportation Currently or been in a relationship where the following occur: I choose not to answer THRIVE Score: 2 AUDIT C Alcohol Use Questionnaire (AUDIT-C) 1. How often do you have a drink containing alcohol?: Never 3. How often do you have six or more drinks on one occasion?: Never Total Score: 0 Score Reviewed/Action Taken: Yes AMINATA-7 AMB Questionnaire AMINATA-7 Date AMINATA - 7 assessed: 11/26/23 Source: Developed by Drs. Josiah Bailey, Gema Zimmerman, Brian Jo and colleagues, with an educational lovely from [employer]. Physical exam (Primary Care) Vital Signs: Last Vital Signs Pulse 81 03/10/24 11:12 BP 118/58 L 03/10/24 11:12 Pulse Ox 98 03/10/24 11:12 Oxygen Delivery Method Room Air 03/10/24 11:12 BMI result Body Mass Index 39.2 Tobacco/Smoking Status: Tobacco use Status Tobacco use date assessed 03/10/24 03/10/24 11:19 Patient Tobacco Use Status Never used Tobacco 03/10/24 11:19 e-Cigarette/Vaping Use Never Used 03/10/24 11:19 Thrive Assessment: Date of Thrive Assessment Date Thrive assessed 03/10/24 03/10/24 11:20 Currently or been in a relationship where the following occur: I choose not to answer Coding Level of Care Code Est Pt Level 4 (23252) Complex EM visit Add On G2211 Diagnoses 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 E10.3553 Diabetes mellitus complication status: with ophthalmic complications Diabetes mellitus complication detail: with diabetic retinopathy Diabetic retinopathy severity: with proliferative retinopathy Proliferative retinopathy type: stable Laterality: bilateral 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 E10.21 Diabetes mellitus type: type 1 Diabetic polyneuropathy associated with type 1 diabetes mellitus E10.42 Diabetes mellitus type: type 1 Diabetes mellitus complication detail: diabetic polyneuropathy Left lumbar radiculitis M54.16 Lipid disorder E78.9 Chronic GERD K21.9 Class 2 severe obesity due to excess calories with serious comorbidity and body mass index (BMI) of 38.0 to 38.9 in adult E66.01; Z68.38 Obesity classification: adult class 2 (BMI 35 - 39.9) Serious obesity comorbidity presence: with serious comorbidity Body mass index: BMI 38.0-38.9 Benign prostatic hyperplasia with urinary frequency N40.1; R35.0 Lower urinary tract symptom presence: symptoms present Lower urinary tract symptom detail: urinary frequency Hypertension, essential I10 Pain management R52 Chronic narcotic dependence F11.20 Assessment & Plan Assessment & Plan (1) Insulin dependent type 1 diabetes mellitus: Code(s): E10.9 - Type 1 diabetes mellitus without complications Category: Medical Qualifiers: Diabetes mellitus complication status: with ophthalmic complications Diabetes mellitus complication detail: with diabetic retinopathy Diabetic retinopathy severity: with proliferative retinopathy Proliferative retinopathy type: stable Laterality: bilateral Qualified Code(s): E10.3553 - Type 1 diabetes mellitus with stable proliferative diabetic retinopathy, bilateral (2) Diabetic nephropathy: Code(s): E11.21 - Type 2 diabetes mellitus with diabetic nephropathy Category: Medical Qualifiers: Diabetes mellitus type: type 1 Qualified Code(s): E10.21 - Type 1 diabetes mellitus with diabetic nephropathy (3) Diabetic neuropathy: Code(s): E11.40 - Type 2 diabetes mellitus with diabetic neuropathy, unspecified Category: Medical Qualifiers: Diabetes mellitus type: type 1 Diabetes mellitus complication detail: diabetic polyneuropathy Qualified Code(s): E10.42 - Type 1 diabetes mellitus with diabetic polyneuropathy (4) Left lumbar radiculitis: Code(s): M54.16 - Radiculopathy, lumbar region Category: Medical (5) Lipid disorder: Code(s): E78.9 - Disorder of lipoprotein metabolism, unspecified Category: Medical (6) Chronic GERD: Comment: Dietary modifications, opportunity for improvement Code(s): K21.9 - Gastro-esophageal reflux disease without esophagitis Category: Medical (7) Obesity due to excess calories: Code(s): E66.09 - Other obesity due to excess calories Category: Medical Qualifiers: Obesity classification: adult class 2 (BMI 35 - 39.9) Serious obesity comorbidity presence: with serious comorbidity Body mass index: BMI 38.0-38.9 Qualified Code(s): E66.01 - Morbid (severe) obesity due to excess calories; Z68.38 - Body mass index [BMI] 38.0-38.9, adult (8) BPH (benign prostatic hyperplasia): Code(s): N40.0 - Benign prostatic hyperplasia without lower urinary tract symptoms Category: Medical Qualifiers: Lower urinary tract symptom presence: symptoms present Lower urinary tract symptom detail: urinary frequency Qualified Code(s): N40.1 - Benign prostatic hyperplasia with lower urinary tract symptoms; R35.0 - Frequency of micturition (9) Hypertension, essential: Code(s): I10 - Essential (primary) hypertension Category: Medical (10) Pain management: Code(s): R52 - Pain, unspecified Category: Medical (11) Chronic narcotic dependence: Code(s): F11.20 - Opioid dependence, uncomplicated Category: Medical Plan History - bulleted - The patient is a 63-year-old male presenting with Type 2 Diabetes Mellitus. - Diagnosed several years ago; managed with insulin. - Recent HbA1c is 7.1, indicating stable blood glucose control over the past three months. - Concurrent issues include nocturnal hypoglycemia. - Occurrences noted as sugar levels drop during the night, lowest recorded at 59 mg/dL, feeling shaky and sweaty upon awakening. - Consistent insulin usage, taking 15 units three times a day, with instructions to adjust nighttime dosing. - The patient also has Stage 3A Chronic Kidney Disease. - Kidney impairment noted as stable with a creatinine level of 1.62. - Regular follow-up with a direct support professional caregiver. - Essential Hypertension is noted as a contributing factor. - Continues management with regular monitoring. -obesity - chronic back pain multiple osteoarthritis sides -pain management with narcotics -chronic GERD -BPH -diabetic neuropathy Problem List - Type 2 Diabetes Mellitus insulin dependence - Stage 3A Chronic Kidney Disease - Essential Hypertension -obesity -diabetic neuropathy -chronic GERD -multiple joint osteoarthritis -chronic back pain Diagnostic results - Laboratory: HbA1c is 7.1 indicating stable control of diabetes; Creatinine 1.62 reflects stable kidney function. [facility] of Care - Regular follow-up with direct support professional caregiver for Chronic Kidney Disease. 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 - Neurological: Reports feeling shaky and sweaty during hypoglycemic events. General: No fever no chills neurological: No headaches no dizziness ear nose throat: No sore throat no hearing difficulty no ear pain cardiovascular: No syncope, no chest pain, no palpitations gastrointestinal: No nausea vomiting or diarrhea endocrine: No polyuria polydipsia no heat intolerance genitourinary: No dysuria skin: No new complaints Physical Exam general: No acute distress HEENT: No acute findings neck: Supple respiratory system: Able to talk in full sentences, no audible wheeze no stridor cardiovascular: S1-S2 gastrointestinal: No pain extremities: No new findings VACUUM FORM OPERATOR: Alert awake oriented x3 motor sensory intact skin: Normal turgor Patient Instructions - Stop taking the 15 units of insulin at night. Continue morning and afternoon, continue long-acting insulin as it is - Continue monitoring blood glucose levels three times daily and record on paper. - Bring recorded blood glucose levels to the next appointment. - Schedule and attend an upcoming endoscopy and colonoscopy on April 18. - Follow-up with direct support professional caregiver and other specialists as scheduled. -try to lose weight Follow-up 4 weeks Medications: Refilled oxycodone-acetaminophen 5-325 mg (Percocet) Partial Fill upon patient request. 1 tab PO Q8H PRN 60 tabs 0RF pain M13.0 - Polyarthritis, unspecified, M25.511 - Pain in right shoulder, M47.816 - Spondylosis without myelopathy or radiculopathy, lumbar region
== END 2024-03-10 11:32 | disposition home or self-care (01) ==
PROVIDERS: PCP Internal Medicine; Visit Provider Internal Medicine
DX: E10.3553 Type 1 diabetes mellitus with stable proliferative diabetic retinopathy, bilateral (principal); E10.21 Type 1 diabetes mellitus with diabetic nephropathy; E10.42 Type 1 diabetes mellitus with diabetic polyneuropathy; E66.01 Morbid (severe) obesity due to excess calories; F11.20 Opioid dependence, uncomplicated; Z68.38 Body mass index [BMI] 38.0-38.9, adult; M54.16 Radiculopathy, lumbar region; E78.9 Disorder of lipoprotein metabolism, unspecified; K21.9 Gastro-esophageal reflux disease without esophagitis; N40.1 Benign prostatic hyperplasia with lower urinary tract symptoms; R35.0 Frequency of micturition; I10 Essential (primary) hypertension; R52 Pain, unspecified

== ENCOUNTER 2024-04-12 09:50 | Outpatient (AMB) | payer OTHER, SELFPAY ==
[2024-04-12 09:51] VITALS: BP 118/60; PULSE 90; O2SAT 97; BMI 38.6
--- NOTE | 2024-04-12 09:51 | A.OFFPC_ITS ---
Vital Signs 04/12/24 09:51 Height 5 ft 7 in Weight 246 lb 6 oz BMI 38.6 BP 118/60 Blood Pressure Location Rt brachial Position Sitting Pulse 90 Pulse Source Pulse Oximeter Pulse Oximetry (%) 97 Oxygen Delivery Method Room Air Intake Visit Reasons: 1 month follow up Allergies No Known Allergies Allergy (Verified 04/12/24 09:51) Medication List - Last Reconciled 04/12/24 by Shawn Johnson MD amlodipine-benazepril 10-20 mg 1 cap PO DAILY aspirin (Adult Low Dose Aspirin) 81 mg PO DAILY atorvastatin 10 mg PO BEDTIME bisacodyl (Dulcolax (bisacodyl)) 20 mg (4 x 5 mg) PO ONCE 1 day blood sugar diagnostic (FreeStyle Lite Strips) USE TO CHECK BLOOD SUGAR 3 TIMES DAILY: FASTING AND BEFORE MEALS cholecalciferol (vitamin D3) 25 mcg PO DAILY 90 days dorzolamide-timolol 22.3-6.8 mg/mL 1 drp ophthalmic (eye) BID dulaglutide (Trulicity) 4.5 mg (0.5 mL) subcut QWEEK 90 days flash glucose sensor (FreeStyle Ye 2 Sensor kit) Use with sensor to monitor blood sugar TID and as needed for s/s hypo/hyperglycemia fluticasone propionate 50 mcg/actuation (Allergy Relief (fluticasone)) 1 spray intranasal DAILY 30 days FreeStyle Ye 2 [place] (flash glucose scanning reader) Use with sensor to monitor blood sugar TID and as needed for s/s hypo/hyperglycemia NS FreeStyle Lite Meter (blood-glucose meter) Use to check blood sugar 4 times daily, fasting and AC NS insulin aspart U-100 (Novolog FlexPen U-100 Insulin aspart) 15 units (0.15 mL) subcut TID 90 days [insulin pen needles 4 times a day] lamotrigine 100 mg PO BID lancets (FreeStyle Lancets) Use to check blood sugar QID, fasting and AC Lantus Solostar U-100 Insulin (insulin glargine) subcutaneously 2 times a day; 50 units at night and 20 units in the morning 90 days NS levothyroxine 50 mcg PO DAILY metoclopramide HCl (Reglan) 10 mg PO Q6H 7 days oxycodone-acetaminophen 5-325 mg (Percocet) 1 tab PO Q8H PRN pantoprazole 20 mg PO DAILY polyethylene glycol 3350 (Miralax) 238 grams PO ONCE PRN 1 day Tobacco use date assessed: 04/12/24 Fall risk assessment: No Falls in past year Last assessed Fall Risk: 04/12/24 Dental Screening Dental Screen Date: 04/12/24 Did you have a dental visit in the last 12 months?: No Did you have a dental problem in the last 6 months where you did not have access to dental care?: No Was dental information given to patient?: Patient has dentist HPI 1 month follow up HPI Details Patient is 64-year-old gentleman came in for his medication refill appointment Suffers from left shoulder pain along with multiple other joints and back pain - Chronic Kidney Disease, Stage 3A, like ly secondary to diabetes and hypertension. - Patient management includes follow-up with senior j2ee developer, Dr. Molina. - Has diabetes mellitus with stable bloo d sugar levels at present. - Hypertension is a chronic issue. Problem List - Chronic Kidney Disease, Stage 3A - Diabetes Mellitus - Hypertension - multiple joint osteoarthritis - chronic back pain Has been evaluated by pain management Patient Instructions - Continue taking pain medication as pre scribed. Currently taking Percocet 3 times a day - Use the same pharmacy for all medicati on refills, as per pain management contract. - Scheduled for an endoscopy and colonos copy on 18 April. Follow preparation instructions sent via letter. - Return for medication refill appointme nt on the of next month. - Ensure all medications and treatments are coordinated with Dr. Molina for kidney care. Review of Systems - Musculoskeletal: Reports pain in the l eft shoulder. - Endocrine: Reports sugar is a bit goo d. - General: No fever no chills - Neurological: No headaches no dizziness - Ear nose throat: No sore throat no hearing difficulty no ear pain - Cardiovascular: No syncope, no chest pain, no palpitations - Gastrointestinal: No nausea vomiting or diarrhea - Genitourinary: No dysuria , no blood in urine Physical Exam General: No acute distress HEENT: No acute findings Neck: Supple Respiratory system: Able to talk in full sentences, no audible wheeze cardiovascular: Heart rate is fine, S1-S2 regular in rate and rhythm Gastrointestinal: No pain Extremities: No new findings TABLE GAMES DUAL RATE SUPERVISOR: Alert awake oriented x3 motor sensory intact Skin: Normal turgor [facility] Medical History Hypothyroid Glaucoma Chronic SI joint pain Lumbar radiculopathy Neuropathy BPH (benign prostatic hyperplasia) Elevated cholesterol GERD (gastroesophageal reflux disease) CKD (chronic kidney disease) Diabetes HTN (hypertension) Surgical History Hx of cataract surgery History of surgery on lower extremity History of shoulder surgery Family History Father Diabetes Hypertension Cancer Mother Hypertension Diabetes Social History Housing: House Patient Tobacco Use Status: Never used Tobacco e-Cigarette/Vaping Use: Never Used service: No Current occupational status: disabled Cognitive needs: No Hearing needs: No Vision needs: Yes Questionnaire PHQ-9 Over the last 2 weeks, how often have you been bothered by any of the following problems? Depression Screening Done: [place] [address] - PHQ-9 Billing: Patient declined-do not bill Source: Developed by Drs. Josiah Bailey, Gema Zimmerman, Brian Jo and colleagues, with an educational lovely from [employer]. Thrive Questionnaire Date Thrive assessed: 04/12/24 I am a: Patient What is your living situation today?: I have a steady place to live Within the past 12 months, did the food you bought not last and you didn't have the money to get more?: Never true Within the past 12 months, did you worry whether your food would run out before you got money to buy more?: Never true Do you have trouble paying for medicines?: No Do you have trouble getting transportation to medical appointments?: No Do you have trouble paying your heating and electricity bill?: No Do you have trouble taking care of your child, family member or friend?: No Do you have trouble with day-to-day activities such as bathing, preparing meals, shopping, managing finances, etc.?: Yes Are you currently unemployed and looking for a job?: No Are you interested in more education?: No Please select the resources that you would like help with: None Currently or been in a relationship where the following occur: No concerns reported THRIVE Score: 0 AUDIT C Alcohol Use Questionnaire (AUDIT-C) 1. How often do you have a drink containing alcohol?: Never 3. How often do you have six or more drinks on one occasion?: Never Total Score: 0 Score Reviewed/Action Taken: Yes AMINATA-7 AMB Questionnaire AMINATA-7 Date AMINATA - 7 assessed: 04/12/24 Feeling nervous, anxious, or on edge: 0 = Not at all Not being able to stop or control worryin = Not at all Worrying too much about different things: 0 = Not at all Trouble relaxin = Not at all Being so restless that it is hard to sit still: 0 = Not at all Becoming easily annoyed or irritable: 0 = Not at all Feeling afraid as if something awful might happen: 0 = Not at all Total AMINATA-7 score (0-4 normal; 5-9 mild; 10-14 moderate; 15-21 severe): 0 Source: Developed by Drs. Josiah Bailey, Gema Zimmerman, Brian Jo and colleagues, with an educational lovely from [employer]. AMINATA-7 Assessment Billing AMINATA-7 Assessment Tool: AMINATA-7 Assessment 83813 Physical exam (Primary Care) Vital Signs: Last Vital Signs Pulse 90 04/12/24 09:51 BP 118/60 04/12/24 09:51 Pulse Ox 97 04/12/24 09:51 Oxygen Delivery Method Room Air 04/12/24 09:51 BMI result Body Mass Index 38.6 Tobacco/Smoking Status: Tobacco use Status Tobacco use date assessed 04/12/24 04/12/24 09:57 Patient Tobacco Use Status Never used Tobacco 04/12/24 09:57 e-Cigarette/Vaping Use Never Used 04/12/24 09:57 Thrive Assessment: Date of Thrive Assessment Date Thrive assessed 03/10/24 04/12/24 09:57 Currently or been in a relationship where the following occur: No concerns reported Coding Level of Care Code Est Pt Level 3 (32321) Complex EM visit Add On G2211 Diagnoses Left lumbar radiculitis M54.16 Pain management R52 Chronic narcotic dependence F11.20 Osteoarthritis involving multiple joints on both sides of body M15.9 Pain management contract agreement Z02.89 Additional Codes AMINATA-7 Assessment Billing - AMINATA-7 Assessment Tool: AMINATA-7 Assessment 61485 ([id number]) Assessment & Plan Assessment & Plan (1) Left lumbar radiculitis: Code(s): M54.16 - Radiculopathy, lumbar region Category: Medical (2) Pain management: Code(s): R52 - Pain, unspecified Category: Medical (3) Chronic narcotic dependence: Code(s): F11.20 - Opioid dependence, uncomplicated Category: Medical (4) Osteoarthritis involving multiple joints on both sides of body: Code(s): M15.9 - Polyosteoarthritis, unspecified Category: Medical (5) Pain management contract agreement: Code(s): Z02.89 - Encounter for other administrative examinations Category: Medical Plan Patient is 64-year-old gentleman came in for his medication refill appointment Suffers from left shoulder pain along with multiple other joints and back pain - Chronic Kidney Disease, Stage 3A, likely secondary to diabetes and hypertension. - Patient management includes follow-up with senior j2ee developer, Dr. Molina. - Has diabetes mellitus with stable blood sugar levels at present. - Hypertension is a chronic issue. Problem List - Chronic Kidney Disease, Stage 3A - Diabetes Mellitus - Hypertension - multiple joint osteoarthritis - chronic back pain Has been evaluated by pain management Patient Instructions - Continue taking pain medication as prescribed. Currently taking Percocet 3 times a day - Use the same pharmacy for all medication refills, as per pain management contract. - Scheduled for an endoscopy and colonoscopy on 18 April. Follow preparation instructions sent via letter. - Return for medication refill appointment on the of next month. - Ensure all medications and treatments are coordinated with Dr. Molina for kidney care. Medications: Refilled oxycodone-acetaminophen 5-325 mg (Percocet) Partial Fill upon patient request. 1 tab PO Q8H PRN 60 tabs 0RF pain M13.0 - Polyarthritis, unspecified, M25.511 - Pain in right shoulder, M47.816 - Spondylosis without myelopathy or radiculopathy, lumbar region
--- OUTSIDE RECORDS SUMMARY | 2024-04-12 10:42 | XMS_ITS | Encounter Summary ---
Author Organization [facility] Address [address] [place] [address] Phone Care Team Providers Care Airplane Designer Name Role Phone Shawn Johnson MD Primary Care Provider Encounter Details Date Type Department Care Team (Late st Contact Info) Description 11/02/2023 Documentation Only [facility] [address] [place] [address] Emily Barnhart [address] [place] [address] Social History Tobacco Use Types Packs/Day Years Used Date Smoking Tobacco: Never Smokeless Tobacco: Never Alcohol Use Standard Drinks/Week Comments Never 0 (1 standard drink = 0.6 oz pur e alcohol) Sex and Gender Information Value Date Recorded Sex Assigned at Not on file Legal Sex Male 3:47 PM EST Gender Identity Not on file Sexual Orientation Not on file documented as of this encounter Plan of Treatment Upcoming Encounters Date Type Department Care Team (Late st Contact Info) Description 05/15/2024 2:00 PM EST Office Visit [facility] [address] [address] Torey Tom MD [address] [place] [address] [place] [address] documented as of this encounter Visit Diagnoses Not on filedocumented in this encounter Care Teams Airplane Designer Relationship Specialty Start Date End Date Shawn Johnson MD [address] [place], [place] [phone] PCP - General Internal Medicine 03/24/22 documented as of this encounter
--- OUTSIDE RECORDS SUMMARY | 2024-04-12 10:42 | XMS_ITS | Encounter Summary ---
Author Organization [facility], Address [address] [place] [address] Phone Care Team Providers Care County Home Demonstrator Name Role Phone Shawn Johnson MD Primary Care Provider Encounter Details Date Type Department Care Team (Late st Contact Info) Description 03/24/2022 Documentation Only [facility] [address] [place] [id number] Shawn Johnson MD [facility] [place], [place] Social History Tobacco Use Types Packs/Day Years Used Date Smoking Tobacco: Never Assessed Sex and Gender Information Value Date Recorded Sex Assigned at Not on file Legal Sex Male 3:47 PM EST Gender Identity Not on file Sexual Orientation Not on file documented as of this encounter Plan of Treatment Upcoming Encounters Date Type Department Care Team (Late st Contact Info) Description 05/15/2024 2:00 PM EST Office [facility] [address] [place] [address] Torey Tom MD [address] [place] [address] [place] [phone] documented as of this encounter Visit Diagnoses Not on filedocumented in this encounter Care Teams County Home Demonstrator Relationship Specialty Start Date End Date Shawn Jhonson MD [address] [place] [id number] PCP - General Internal Medicine 03/24/22 documented as of this encounter
--- OUTSIDE RECORDS SUMMARY | 2024-04-12 10:42 | XMS_ITS | Clinical Summary ---
Author Organization [facility], Address [address] [place] [address] [place] [address] Phone Care Team Providers Care Manager Strategic Marketing Name Role Phone Shawn Johnson MD Primary Care Provider Allergies No known active allergies Medications amLODIPine-carlota zepril (LOTREL) 10-20 MG per capsule Take 1 capsule by mouth 1 (one) time each day Active aspirin 81 MG chewable tablet Chew 81 mg 1 (one) time each day Active atorvastatin (LIPITOR) 10 MG tablet Take 10 mg by mouth 1 (one) time each day Active Cholecalciferol (D3 Super Strength) 50 MCG (1999 UT) capsule Take by mouth Active DULAGLUTIDE SC Inject under the skin Active gabapentin (NEURONTIN) 100 MG capsule Take 100 mg by mouth in the morning and 100 mg in the evening and 100 mg before bedtime. Active lamoTRIgine (LaMICtal) 100 MG tablet Take 100 mg by mouth 1 (one) time each day Active levothyroxine sodium (TIROSINT) 50 MCG capsule Take 50 mcg by mouth 1 (one) time each day Active metFORMIN (GLUCOPHAGE) 500 MG tablet Take 500 mg by mouth in the morning and 500 mg in the evening. Take with meals. Active pantoprazole (PROTONIX) 20 MG EC tablet Take 20 mg by mouth 1 (one) time each day before breakfast Do not crush, chew, or split. Active Active Problems Problem Noted Date Diagnosed Date Hyperlipidemia 06/23/2023 Hypertension 06/23/2023 Peripheral vascular disease 06/23/2023 Type 2 diabetes mellitus 04/09/2022 Family History Medical History Relation Comments Cancer Father Diabetes Father Hypertension Father Diabetes Mother Hypertension Mother Relation Status Comments Father Mother Social History Tobacco Use Types Packs/Day Years Used Date Smoking Tobacco: Never Smokeless Tobacco: Never Tobacco Cessation:Counseling Given: Not Answered Alcohol Use Standard Drinks/Week Comments Never 0 (1 standard drink = 0.6 oz pur e alcohol) Sex and Gender Information Value Date Recorded Sex Assigned at Not on file Legal Sex Male 3:47 PM EST Gender Identity Not on file Sexual Orientation Not on file Last Filed Vital Signs Vital Sign Reading Time Taken Comments Blood Pressure 136/79 11/08/2023 3:31 PM EDT Pulse 85 11/08/2023 3:31 PM EDT Temperature - - Respiratory Rate - - Oxygen Saturation - - Inhaled Oxygen Concentration - - Weight - - Height - - Body Mass Index - - Plan of Treatment Upcoming Encounters Date Type Department Care Team (Late st Contact Info) Description 05/15/2024 2:00 PM EST Office Visit [facility] [address] [place] [address] oTrey Tom MD [address] [place] [address] Health Maintenance Due Date Last Done Comments Pneumococcal Vaccine: Pediat rics (0 to 5 Years) and At-Risk Patients (6 to 64 Years) (1 of 2 - PCV) 1966 Colorectal Cancer Screening: Annual FOBT 2009 Colorectal Cancer Screening: Colonoscopy 2009 Colorectal Cancer Screening: Sigmoidoscopy 2009 Diabetes: Ophthalmology Exam 04/09/2022 Diabetes: Pedal Pulse Checked 04/09/2022 Diabetes: Sensory Foot Exam 04/09/2022 Diabetes: Visual Foot Exam 04/09/2022 Diabetes: Hemoglobin A1C 07/09/2022 04/10/2022 Influenza Vaccine (#1) 2023 Hepatitis B Vaccine Aged Out No longe r eligible based on patient's age to complete this topic Procedures Procedure Name Priority Date/Time Associated Diagnosis Comments HEMOGLOBIN A1C Routine 04/10/2022 3:03 PM EST Stage 3b chronic kidney disease (HCC) from Last 3 Months or Most Recently Relevant to Health Maintenance Results * (ABNORMAL) Hemoglobin A1c (04/10/2022 3:03 PM EST) Hemoglobin A1C 8.2(H) (4.0-5.6) % [facility] Comment: MONITORING: In known diabetic patients, hemoglobin A1c targets should be discussed with health care provider. DIAGNOSTIC USE: ??The [employer] Diabetes Association (ADA) and the World Health Organization (WHO) recommend the use of HbA1c to diagnose diabetes using a threshold of 6.5%. Patients who have an HbA1c between 5.7% and 6.4% are considered at increased risk for developing diabetes in the future. CAUTION: Falsely low HbA1c results may be observed in patients with hemolytic anemia, homozygous forms of abnormal hemoglobin (e.g. SS, CC, SC), , recent blood loss or hemoglobin F greater than 7%. Fructosamine may be used as an alternate test in these cases. REFERENCE: ADA: Standards of Medical Care in Diabetes 2020, The Journal of Clinical and Applied Research and Education Volume 43, Supplement 1 Testing performed or reported by [facility], a Service of [facility], [address] [place] [address] Aaliyah Pastrana MD, Account Underwriter [facility]# [id number] Blood (Blood, Venous) 04/10/2022 3:03 PM EST 04/10/2022 3:04 PM EST us Torey Tom MD LAB BLOOD ORDERABLES Final Re sult [facility] from Last 3 Months or Most Recently Relevant to Health Maintenance Insurance [employer] Care Teams Manager Strategic Marketing Relationship Specialty Start Date End Date Shawn Johnson MD [address] [place] [address] PCP - General Internal Medicine 03/24/22
--- OUTSIDE RECORDS SUMMARY | 2024-04-12 10:42 | XMS_ITS | Encounter Summary ---
Author Organization [facility] Address [address] [place] [address] Phone Care Team Providers Care Vacation Planner Name Role Phone Shawn Johnson MD Primary Care Provider Encounter Details Date Type Department Care Team (Late st Contact Info) Description 06/23/2023 Documentation Only [facility] [address] [place] [address] Emily Barnhart [address] [place] [address] Social History Tobacco Use Types [...] Visit [facility] [address] [place] [address] Torey Tom MD [address] [place] [address] [place] [address] documented as of this encounter Visit Diagnoses Not on filedocumented in this encounter Care Teams Vacation Planner Relationship Specialty Start Date End Date Shawn Johnson MD [address] [place], [place] [phone] PCP - General Internal Medicine 03/24/22 documented as of this encounter
--- OUTSIDE RECORDS SUMMARY | 2024-04-12 10:42 | XMS_ITS | Encounter Summary ---
Author Organization [facility] Address [address] [place] [address] Phone Care Team Providers Care Direct Marketing Intern Name Role Phone Shawn Johnson MD Primary Care Provider [phone] Encounter Details Date Type Department Care Team (Late st Contact Info) Description 07/09/2023 Documentation Only [facility] [address] [place] [address] Emily Barnhart [address] [place] [address] Social History Tobacco Use Types [...] Visit [facility] [address] [place] [address] Torey Tom MD [address] [place] [address] [place] [address] documented as of this encounter Visit Diagnoses Not on filedocumented in this encounter Care Teams Direct Marketing Intern Relationship Specialty Start Date End Date Shawn Johnson MD [address] [place], [place] [phone] PCP - General Internal Medicine 03/24/22 documented as of this encounter
--- OUTSIDE RECORDS SUMMARY | 2024-04-12 10:42 | XMS_ITS | Encounter Summary ---
Author Organization [facility] Address [address] [place] [address] Phone Care Team Providers Care Telecommunications Cable Jointer Name Role Phone Shawn Johnson MD Primary Care Provider [phone] Encounter Details Date Type Department Care Team (Late st Contact Info) Description 06/23/2023 Documentation Only [facility] [address] [place] [address] Emily Barnhart [address] [place] [address] Social History Tobacco Use Types [...] Visit [facility] [address] [place] [address] Torey Tom MD [address] [place] [address] [place] [address] documented as of this encounter Visit Diagnoses Not on filedocumented in this encounter Care Teams Telecommunications Cable Jointer Relationship Specialty Start Date End Date Shawn Johnson MD [address] [place], [place] [phone] PCP - General Internal Medicine 03/24/22 documented as of this encounter
--- OUTSIDE RECORDS SUMMARY | 2024-04-12 10:42 | XMS_ITS | Clinical Summary ---
Author Organization [address] [place] [address] Address [address] [place] [address] Phone Care Team Providers Care Library Services Dean Name Role Phone Shawn Johnson MD Primary Care Provider [phone] Allergies No known active allergies Medications Medication Sig Dispensed Refills Start Date End Date Status amLODIPine-benazepril (LOTREL) 10-20 mg per capsule Take 1 capsule by mouth 1 (one) time each day. Active aspirin 81 mg chewable tablet Chew 1 tablet (81 mg total) 1 (one) time each day. Active atorvastatin (LIPITOR) 10 mg tablet Take 1 tablet (10 mg total) by mouth at bedtime. Active bisacodyL (DULCOLAX) 5 mg EC tablet Take 1 tablet (5 mg total) by mouth 1 (one) time each day if needed for constipation. Do not crush, chew, or split. Active cholecalciferol (VITAMIN D-3) 25 mcg (1,000 unit) tablet Take 1 tablet (1,000 Units total) by mouth 1 (one) time each day. Active dulaglutide (Trulicity) 4.5 mg/0.5 mL pen injector injection Inject 0.5 mL (4.5 mg total) under the skin every 7 (seven) days. Active pantoprazole (PROTONIX) 20 mg EC tablet Take 1 tablet (20 mg total) by mouth 1 (one) time each day before breakfast. Do not crush, chew, or split. Active oxyCODONE-acetaminophe n (PERCOCET) 5-325 mg per tablet Take 1 tablet by mouth. Active metoclopramide (REGLAN) 10 mg tablet Take 1 tablet (10 mg total) by mouth. Active levothyroxine (SYNTHROID, LEVOTHROID) 50 mcg tablet Take 1 tablet (50 mcg total) by mouth 1 (one) time each day before breakfast. Active lamoTRIgine (LaMICtal XR) 100 mg tablet extended release 24hr 24 hr tablet Take 1 tablet (100 mg total) by mouth 1 (one) time each day. Active Active Problems Problem Noted Date Diagnosed Date Hypothyroid 03/03/2024 Glaucoma 03/03/2024 Chronic SI joint pain 03/03/2024 Lumbar radiculopathy 03/03/2024 Neuropathy 03/03/2024 BPH (benign prostatic hyperplasia) 03/03/2024 Elevated cholesterol 03/03/2024 GERD (gastroesophageal reflux disease) CKD (chronic kidney disease) 03/03/2024 Type 2 diabetes mellitus 03/03/2024 HTN (hypertension) 03/03/2024 Encounters Date Type Department Care Team Description 03/06/2024 2:15 PM EST Consult Orthopedic Surgery [place] [address] [phone] Satya Rodgers DPM Dermatophytosis of nail (Primary Dx); Type II diabetes mellitus with peripheral circulatory disorder (CMS/HCC); Diabetic mononeuropathy simplex (CMS/HCC); Difficulty walking; Pain in toe of right foot; Tinea pedis of both feet; Pain in toe of left foot from Last 3 Months Social History Tobacco Use Types Packs/Day Years Used Date Smoking Tobacco: Never Assessed Sex and Gender Information Value Date Recorded Sex Assigned at Not on file Gender Identity Not on file Sexual Orientation Not on file Job Start Date Occupation Industry Not on file Not on file Not on file Last Filed Vital Signs Vital Sign Reading Time Taken Comments Blood Pressure - - Pulse - - Temperature - - Respiratory Rate - - Oxygen Saturation - - Inhaled Oxygen Concentration - - Weight 115 kg (253 lb) 03/06/2024 2:29 PM EST Height 171.5 cm (5' 7.5 ) 03/06/2024 2:29 PM EST Body Mass Index 39.04 03/06/2024 2:29 PM EST Plan of Treatment Upcoming Encounters Date Type Department Care Team ([facility] st Contact Info) Description 06/05/2024 1:45 PM EDT Office Visit Orthopedic Surgery [facility] [address] [phone] Satya Rodgers DPM [address] [place] [address] Health Maintenance Due Date Last Done Comments Diabetes: Annual GFR (Glomer ular Filtration Rate) 1960 COVID-19 Vaccine (#1) 1965 Pneumococcal Vaccine: Pediat rics (0 to 5 Years) and At-Risk Patients (6 to 64 Years) (1 of 2 - PCV) 1966 Diabetes: Annual Foot Exam 1970 Diabetes: Annual Retina Eye Exam 1970 Zoster Vaccines (1 of 2) 2010 RSV Immunization Patients 60 + Years Old (1 - Risk 60-74 years 1-dose series) 2020 Cholesterol Screening (Lipid Panel) 02/18/2022 Colorectal Cancer Screening: Colonoscopy 02/18/2022 Depression Screening 02/18/2022 HIV Screening 02/18/2022 Hepatitis C Screening 02/18/2022 Social Influencers of Health Screening 02/18/2022 Diabetes: Annual Urine Albumin-Creatinine Ratio (uACR) 03/03/2024 Diabetes: Blood Sugar Contro l Test (HGBA1C) 03/03/2024 04/10/2022 Hypertension/CHF/CAD Annual BMP Blood Test 03/03/2024 DTaP,Tdap,and Td Vaccines (2 - Td or Tdap) 12/07/2033 12/08/2023 Influenza Vaccine Completed 12/22/2023 HIB Vaccines Aged Out No longer eligi ble based on patient's age to complete this topic HPV Vaccines Aged Out No longer eligi ble based on patient's age to complete this topic Hepatitis A Vaccines Aged Out No long er eligible based on patient's age to complete this topic Hepatitis B Vaccines Aged Out No long er eligible based on patient's age to complete this topic IPV Vaccines Aged Out No longer eligi ble based on patient's age to complete this topic MMR Vaccines Aged Out No longer eligi ble based on patient's age to complete this topic Meningococcal ACWY Vaccine Aged Out N o longer eligible based on patient's age to complete this topic RSV Immunization Patients Un chanda 20 months Aged Out No longer eligible b ased on patient's age to complete this topic Varicella Vaccines Aged Out No longer eligible based on patient's age to complete this topic Care Teams Library Services Dean Relationship Specialty Start Date End Date Shawn Johnson MD [address] [place] [address] PCP - General 12/23/23
--- OUTSIDE RECORDS SUMMARY | 2024-04-12 10:42 | XMS_ITS | Encounter Summary ---
Author Organization [facility] Address [address] [place] [address] Phone Care Team Providers Care Interlocking Tower Operator Name Role Phone Shawn Johnson MD Primary Care Provider Encounter Details Date Type Department Care Team (Late st Contact Info) Description 11/02/2023 Documentation Only [facility] [address] [place] [address] Emily Barnhart [address] [place] [address] Social History Tobacco Use Types [...] Visit [facility] [address] [place] [address] Torey Tom MD [address] [place] [address] [place] [address] documented as of this encounter Visit Diagnoses Not on filedocumented in this encounter Care Teams Interlocking Tower Operator Relationship Specialty Start Date End Date Shawn Johnson MD [address] [place], [place] [id number] PCP - General Internal Medicine 03/24/22 documented as of this encounter
== END 2024-04-12 10:14 | disposition home or self-care (01) ==
PROVIDERS: PCP Internal Medicine; Visit Provider Internal Medicine
DX: M54.16 Radiculopathy, lumbar region (principal); F11.20 Opioid dependence, uncomplicated; M15.9 Polyosteoarthritis, unspecified; Z02.89 Encounter for other administrative examinations

== ENCOUNTER → 2024-04-12 09:50 | Outpatient (BNVA) | payer OTHER, SELFPAY | PROVIDERS: PCP Internal Medicine; Visit Provider Internal Medicine | DX: M54.16 Radiculopathy, lumbar region (principal); F11.20 Opioid dependence, uncomplicated; M15.9 Polyosteoarthritis, unspecified | CPT/HCPCS: 96127; 99212 ==

== ENCOUNTER 2024-04-18 07:35 | Emergency (ER) | payer OTHER, SELFPAY ==
--- NOTE | ~2024-04-18 | XR_ITS ---
EXAMINATION: XR SHOULDER, LEFT CLINICAL INFORMATION: shoulder pain COMPARISON: 03/10/2024. TECHNIQUE: AP external rotation, Grashey, scapular Y, and axillary views of the left shoulder. FINDINGS: No fracture, dislocation, or suspicious bone lesion. Normal alignment. Moderate spurring of the AC joint predominantly superiorly. Mild degenerative arthritis in the glenohumeral joint. Neutral lateral acromion with a small subacromial spur. No significant subacromial narrowing. Remainder the bones and soft tissues appear normal. XR/XR shoulder LT min 2V IMPRESSION: No acute findings left shoulder. Degenerative changes. Electronically signed by: Steven Gray MD 04/18/2024 09:55 AM EST
[2024-04-18 07:45] VITALS: BP 136/75; PULSE 84; RESP 18; TEMP 36.9; O2SAT 100; BMI 37.6
--- NOTE | 2024-04-18 07:50 | ECG_ITS ---
Test Reason : left shoulder pain Blood Pressure : */* mmHG Vent. Rate : 79 BPM Atrial Rate : 79 BPM P-R Int : 140 ms QRS Dur : 86 ms QT Int : 364 ms P-R-T Axes : 49 -6 -8 degrees QTcB Int : 417 ms Normal sinus rhythm Minimal voltage criteria for LVH, may be normal variant ( R in aVL ) Borderline ECG No previous ECGs available Referred By: Generic ED Physician Electronically Signed By: BASILIO SHERMAN
--- OUTSIDE RECORDS SUMMARY | 2024-04-18 09:05 | XMS_ITS | Encounter Summary ---
Author Organization [facility] Address [address] [place] [address] Phone Care Team Providers Care Monorail Operator Name Role Phone Shawn Johnson MD Primary Care Provider Encounter Details Date Type Department Care Team (Late st Contact Info) Description 06/23/2023 Documentation Only [facility] [address] [place] [address] Emily Barhnart [address] [place] [address] Social History Tobacco Use Types [...] Visit [facility] [address] [place] [address] Torey Tom MD [address] [place] [address] [place] [address] documented as of this encounter Visit Diagnoses Not on filedocumented in this encounter Care Teams Monorail Operator Relationship Specialty Start Date End Date Shawn Johnson MD [address] [place], [place] [phone] PCP - General Internal Medicine 03/24/22 documented as of this encounter
--- OUTSIDE RECORDS SUMMARY | 2024-04-18 09:05 | XMS_ITS | Clinical Summary ---
Author Organization [address] [place] [address] Address [address] [place] [address] Phone Care Team Providers Care Lieutenant Colonel Name Role Phone Shawn Johnson MD Primary Care Provider [phone] Allergies No known active allergies Medications Medication [...] 03/06/2024 2:15 PM EST Consult Orthopedic Surgery [facility] [address] [phone] Satya Rodgers DPM Dermatophytosis of nail (Primary [...] Upcoming Encounters Date Type Department Care Team ([facility] st Contact Info) Description 06/05/2024 1:45 PM EDT Office Visit Orthopedic Surgery [facility] [address] [phone] Satya Rodgers DPM [address] [address] Health Maintenance Due Date Last Done Comments [...] age to complete this topic Care Teams Lieutenant Colonel Relationship Specialty Start Date End Date Shawn Johnson MD [address] [place] [address] PCP - General 12/23/23
--- OUTSIDE RECORDS SUMMARY | 2024-04-18 09:05 | XMS_ITS | Encounter Summary ---
Author Organization [facility] Address [address] [place] [address] Phone Care Team Providers Care Pipe Insulator Helper Name Role Phone Shawn Johnson MD Primary Care Provider Encounter Details Date Type Department Care Team (Late st Contact Info) Description 06/23/2023 Documentation Only [facility] [address] [place] [address] Emily Barnhart [address] [place] [address] Social History Tobacco Use Types [...] Visit [facility] [address] [place] [address] Torey Tom MD [address] [place] [address] [place] [address] documented as of this encounter Visit Diagnoses Not on filedocumented in this encounter Care Teams Pipe Insulator Helper Relationship Specialty Start Date End Date Shawn Johnson MD [address] [place], [place] [phone] PCP - General Internal Medicine 03/24/22 documented as of this encounter
--- OUTSIDE RECORDS SUMMARY | 2024-04-18 09:05 | XMS_ITS | Encounter Summary ---
Author Organization [facility] Address [address] [place] [address] Phone Care Team Providers Care Vacuum Tester Cans Name Role Phone Shawn Johnson MD Primary Care Provider [phone] Encounter Details Date Type Department Care Team (Late st Contact Info) Description 11/02/2023 Documentation Only [facility] [address] [place] [address] Emily Barnhart [address] [place] [address] Social History Tobacco Use Types [...] [facility] [address] [place] [address] Torey Tom MD [address] [place] [address] [place] [address] documented as of this encounter Visit Diagnoses Not on filedocumented in this encounter Care Teams Vacuum Tester Cans Relationship Specialty Start Date End Date Shawn Johnson MD [address] [place], [place] [phone] PCP - General Internal Medicine 03/24/22 documented as of this encounter
--- OUTSIDE RECORDS SUMMARY | 2024-04-18 09:05 | XMS_ITS | Encounter Summary ---
Author Organization [facility] Address [address] [place] [address] Phone Care Team Providers Care Head Batcher Name Role Phone Shawn Johnson MD Primary Care Provider [phone] Encounter Details Date Type Department Care Team (Late st Contact Info) Description 07/09/2023 Documentation Only [facility] [address] [place] [address] Emily Barnhart [address] [place] [address] Social History Tobacco Use Types [...] Visit [facility] [address] [place] [address] Torey Tom MD [address] [place] [address] [place] [address] documented as of this encounter Visit Diagnoses Not on filedocumented in this encounter Care Teams Head Batcher Relationship Specialty Start Date End Date Shawn Johnson MD [address] [place], [place] [phone] PCP - General Internal Medicine 03/24/22 documented as of this encounter
--- OUTSIDE RECORDS SUMMARY | 2024-04-18 09:05 | XMS_ITS | Clinical Summary ---
Author Organization [facility] [place] Address [address] [place] [address] [place] [address] Phone Care Team Providers Care Administrator Of Home Health Name Role Phone Shawn Johnson MD Primary Care Provider [phone] Allergies No known active allergies Medications amLODIPine-carlota [...] [facility] [address] [place] [address] Torey Tom MD [address] [place] [address] Health Maintenance Due Date Last [...] PM EST) Hemoglobin A1C 8.2(H) (4.0-5.6) % [facility] Comment: MONITORING: In known diabetic patients, hemoglobin A1c targets should be discussed with health care provider. DIAGNOSTIC USE: ??The [place] Diabetes Association (ADA) and the World Health [...] Supplement 1 Testing performed or reported by [facility], a Service of [facility], [address] [place] [address] Aaliyah Pastrana MD, [employer] [facility]# [id number] Blood (Blood, Venous) 04/10/2022 3:03 PM EST 04/10/2022 3:04 PM EST us Torey Tom MD LAB BLOOD ORDERABLES Final Re sult [facility] from Last 3 Months or Most Recently Relevant to Health Maintenance Insurance [employer] Care Teams Administrator Of Home Health Relationship Specialty Start Date End Date Shawn Johnson MD [address] [place] [address] PCP - General Internal Medicine 03/24/22
--- OUTSIDE RECORDS SUMMARY | 2024-04-18 09:05 | XMS_ITS | Encounter Summary ---
Author Organization [facility] [place] Address [address] [place] [address] Phone Care Team Providers Care Supervisory Training Specialist Name Role Phone Shawn Johnson MD Primary Care Provider Encounter Details Date Type Department Care Team (Late st Contact Info) Description 03/24/2022 Documentation Only [facility] [address] [place] [place] [phone] Shawn Johnson MD [facility] [place] [address] Social History Tobacco Use Types Packs/Day Years [...] Visit [facility] [address] [place] [address] Torey Tom MD [address] [place] [address] [place] [phone] documented as of this encounter Visit Diagnoses Not on filedocumented in this encounter Care Teams Supervisory Training Specialist Relationship Specialty Start Date End Date Shawn Johnson MD [address] [place] [address] PCP - General Internal Medicine 03/24/22 documented as of this encounter
--- OUTSIDE RECORDS SUMMARY | 2024-04-18 09:05 | XMS_ITS | Encounter Summary ---
Author Organization [facility] Address [address] [place] [address] Phone Care Team Providers Care Multimedia Designer Name Role Phone Shawn Johnson MD Primary Care Provider Encounter Details Date Type Department Care Team (Late st Contact Info) Description 11/02/2023 Documentation Only [facility] [address] [place] [address] Emily Barnhart [address] [place] [address] Social History Tobacco Use Types [...] Visit [facility] [address] [place] [address] Torey Tom MD [address] [place] [address] [place] [address] documented as of this encounter Visit Diagnoses Not on filedocumented in this encounter Care Teams Multimedia Designer Relationship Specialty Start Date End Date Shawn Johnson MD [address] [place], [place] [phone] PCP - General Internal Medicine 03/24/22 documented as of this encounter
--- NOTE | 2024-04-18 10:27 | ED.EXTPRO ---
HPI - Extremity Problem General Chief complaint: Extremity Injury, Upper Stated complaint: Pain L shoulder Time Seen by Provider: 04/18/24 09:04 Source: patient, RN notes reviewed and old records reviewed Mode of arrival: ambulatory History of Present Illness ED Provider: Celena Lopez PA-C HPI Narrative: 64-year-old male with a past medical history of CKD, diabetes, HTN, myofascial pain syndrome, presenting to the ED complaining of acute on chronic left shoulder pain x months. Patient states he currently follows with Orthopedics and pain management, take oxycodone for pain without relief. Denies known injury, trauma, fall, numbness, tingling, weakness, chest pain, shortness of breath, neck pain Related Data Home Medications ?Medication ?Instructions ?Recorded ?Confirmed aspirin 81 mg tablet,delayed 81 mg PO DAILY 01/07/22 04/12/24 release (Adult Low Dose Aspirin) Previous Rx's ?Medication ?Instructions ?Recorded dorzolamide 22.3 mg-timolol 6.8 1 drp ophthalmic (eye) BID #10 mL 11/21/21 mg/mL eye drops lamotrigine 100 mg tablet 100 mg PO BID #180 tabs 11/21/21 FreeStyle Ye 2 [place] (flash #1 ea 05/15/22 glucose scanning reader) flash glucose sensor (FreeStyle #6 ea 05/15/22 Ye 2 Sensor kit) FreeStyle Lite Meter #1 ea 09/23/22 (blood-glucose meter) insulin pen needles #100 ea 12/15/22 lancets 28 gauge (FreeStyle #100 ea 12/15/22 Lancets) bisacodyl 5 mg tablet,delayed 20 mg (4 x 5 mg) PO ONCE 02/03/23 release (Dulcolax (bisacodyl)) colonoscopy prep 1 day #4 tabs polyethylene glycol 3350 17 238 g PO ONCE PRN laxative effect 02/03/23 gram/dose oral powder (Miralax) 1 day #238 grams metoclopramide HCl 10 mg tablet 10 mg PO Q6H 7 days #28 tabs 04/08/23 (Reglan) cholecalciferol (vitamin D3) 25 25 mcg PO DAILY 90 days #90 caps 08/04/23 mcg (1,000 unit) capsule dulaglutide 4.5 mg/0.5 mL 4.5 mg (0.5 mL) subcut QWEEK 90 10/08/23 subcutaneous pen injector days #6.5 mL (Trulicity) amlodipine 10 mg-benazepril 20 mg 1 cap PO DAILY #90 caps 11/24/23 capsule Lantus Solostar U-100 Insulin 100 See Rx Instructions subcut BID 90 01/03/24 unit/mL (3 mL) subcutaneous pen days #126 mL (insulin glargine) insulin aspart U-100 100 unit/mL 15 unit (0.15 mL) subcut TID 90 01/03/24 (3 mL) subcutaneous pen (Novolog days #40.5 mL FlexPen U-100 Insulin aspart) atorvastatin 10 mg tablet 10 mg PO BEDTIME #90 tabs 02/14/24 pantoprazole 20 mg tablet,delayed 20 mg PO DAILY #90 tabs 02/15/24 release levothyroxine 50 mcg tablet 50 mcg PO DAILY #90 tabs 02/16/24 fluticasone propionate 50 1 spray intranasal DAILY 30 days 03/19/24 mcg/actuation nasal #1 mL spray,suspension (Allergy Relief (fluticasone)) blood sugar diagnostic (FreeStyle #300 ea 04/03/24 Lite Strips) oxycodone-acetaminophen 5 mg-325 1 tab PO Q8H PRN pain #60 tabs 04/12/24 mg tablet (Percocet) Allergies Allergy/AdvReac Type Severity Reaction Status Date / Time No Known Allergies Allergy Verified 04/18/24 07:47 Review of Systems Review of Systems: Yes all other systems are reviewed and are negative Constitutional: Constitutional: Reports as per [facility] Past Medical History Attestation statement: The following information was validated with the patient. Source: old records reviewed Medical History Hypothyroid Glaucoma Chronic SI joint pain Lumbar radiculopathy Neuropathy BPH (benign prostatic hyperplasia) Elevated cholesterol GERD (gastroesophageal reflux disease) CKD (chronic kidney disease) Diabetes HTN (hypertension) Surgical History Hx of cataract surgery History of surgery on lower extremity History of shoulder surgery Family History Family History Father Diabetes Hypertension Cancer Mother Hypertension Diabetes Social History Social History Housing: House Patient Tobacco Use Status: Never used Tobacco e-Cigarette/Vaping Use: Never Used Advance Directives: No Advance Directives Information Provided: Yes service: No Current occupational status: disabled Cognitive needs: No Hearing needs: No Vision needs: Yes Physical Exam Vital Signs: Vital Signs: Last Vital Signs Temp 98.4 F 04/18/24 07:45 Pulse 84 04/18/24 07:45 Resp 18 04/18/24 07:45 BP 136/75 04/18/24 07:45 Pulse Ox 100 04/18/24 07:45 O2 Del Method Room Air 04/18/24 07:45 BMI result Body Mass Index 37.6 Const: General: cooperative, healthy appearing and no acute distress Orientation/consciousness: patient oriented x3 Limitations: no limitations HEENT: Head: Yes normal to inspection and Yes atraumatic Ears: hearing grossly normal bilaterally General nose exam: Normal external nose present Face and sinus: Yes normal facial exam Eyes: General: appearance normal, both eyes and all related structures EOM: EOMs intact bilaterally Neck: Neck: Yes normal visual inspection and Yes no meningeal signs Resp: Effort & Inspection: normal respiratory effort and no respiratory distress Cardio: Rate: regular rate Skin: Rashes: no rashes Wounds: no wounds Neuro: General: patient oriented x3, tone normal and no meningeal signs Cranial nerves: Yes CN's II-XII intact bilaterally Gait exam (Neuro): Normal gait present Extrem: Other: Left shoulder without appreciable deformity. Diffusely tender to palpation. Limited ROM secondary to pain. Neurovascularly intact distally. No erythema or warmth. General: Yes normal to inspection Course Course Course Narrative: XR shoulder LT min 2V IMPRESSION: No acute findings left shoulder. Degenerative changes. > Patient given 1x dose PO Morphine in the ED. Will not be prescribing additional narcotics at this time is just filled prescription on 04/12/2024 Results discussed with patient including worrisome signs and symptoms and strict return precautions, and when to return to the emergency department. They verbalized understanding and feel safe for discharge at this time. Medical Decision Making Medical Decision Making MDM Narrative: 64-year-old male with a past medical history of CKD, diabetes, HTN, myofascial pain syndrome, presenting to the ED complaining of acute on chronic left shoulder pain x months. On exam vital signs stable, NAD, nontoxic appearing, physical exam as noted above with reproducible left shoulder tenderness and limited ROM secondary to pain. Neurovascularly intact distally. Concern for acute on chronic pain vs tendinitis vs bursitis vs ligamental injury or rotator cuff injury. Low suspicion for fracture, dislocation, no evidence of septic joint/arthritis. Unlikely ACS Plan: EKG, x-ray, pain control per MassDCT review patient filled 60 tablets of Percocet on 04/12/2024 Please refer to course for remaining clinical decision making, interpretation of labs/imaging results, and discussions with consultants and/or family members. Differential Diagnosis Differential Diagnoses: The differential diagnosis associated with the presentation includes As above Independent Interpretation I performed an independent interpretation of an: EKG (My interpretation EKG normal sinus rhythm rate of 79. CT interval 140. QTC 417. No previous to compare. No STEMI) and Plain X-Ray Radiology Impression Discussion of test interpretation with radiology: I have reviewed the radiologist's reading. External Record Review External record reviewed: Inpatient record, Office record, Outpatient record, Prior outpatient labs, Prior outpatient radiology, Primary care record and Outside ED record Tests considered The following testing was considered but not selected: As above Prescription Management I considered prescription management with: Pain Medication Social Determinants Patient?s care significantly limited by Social Determinants of Health including: Other Social Determinant of Health Discharge Plan Discharge Clinical Impression: Chronic left shoulder pain Patient Disposition: Home, Self-Care Prescriptions: No Action (DME) FreeStyle Ye 2 Sensor Kit See Rx Instructions .Route Qty: 6 2RF Rx Instructions: Use with sensor to monitor blood sugar TID and as needed for s/s hypo/hyperglycemia (DME) FreeStyle Ye 2 [place] Misc See Rx Instructions .Route Qty: 1 0RF Rx Instructions: Use with sensor to monitor blood sugar TID and as needed for s/s hypo/hyperglycemia (DME) blood-glucose meter [FreeStyle Lite Meter] Kit See Rx Instructions .Route Qty: 1 0RF Rx Instructions: Use to check blood sugar 4 times daily, fasting and AC Trulicity 4.5 mg/0.5 mL pen injector 4.5 mg subcut QWEEK 90 Days Qty: 6.5 3RF amlodipine-benazepril 10-20 mg capsule 1 cap PO DAILY Qty: 90 0RF insulin aspart U-100 [Novolog FlexPen U-100 Insulin] 100 unit/mL (3 mL) insulin pen 15 unit subcut TID 90 Days Qty: 40.5 1RF insulin glargine [Lantus Solostar U-100 Insulin] 100 unit/mL (3 mL) insulin pen See Rx Instructions subcut BID 90 Days Qty: 126 2RF Rx Instructions: subcutaneously 2 times a day; 50 units at night and 20 units in the morning atorvastatin 10 mg tablet 10 mg PO BEDTIME Qty: 90 0RF pantoprazole 20 mg tablet,delayed release (DR/EC) 20 mg PO DAILY Qty: 90 0RF fluticasone propionate [Allergy Relief (fluticasone)] 50 mcg/actuation spray,suspension 1 spray intranasal DAILY 30 Days Qty: 1 3RF Rx Instructions: administer into each nostril (DME) FreeStyle Lite Strips Strip See Rx Instructions .ROUTE .COMPLEX Qty: 300 0RF Dose Instruction: USE TO CHECK BLOOD SUGAR 4 TIMES DAILY: FASTING AND BEFORE MEALS Rx Instructions: USE TO CHECK BLOOD SUGAR 3 TIMES DAILY: FASTING AND BEFORE MEALS aspirin [Adult Low Dose Aspirin] 81 mg tablet,delayed release (DR/EC) 81 mg PO DAILY cholecalciferol (vitamin D3) 25 mcg (1,000 unit) capsule 25 mcg PO DAILY 90 Days Qty: 90 1RF dorzolamide-timolol 22.3-6.8 mg/mL drops 1 drp ophthalmic (eye) BID Qty: 10 2RF lamotrigine 100 mg tablet 100 mg PO BID Qty: 180 0RF (DME) lancets [FreeStyle Lancets] 28 gauge misc See Rx Instructions .Route Qty: 100 2RF Rx Instructions: Use to check blood sugar QID, fasting and AC (DME) insulin pen needles small See Rx Instructions .Route .MEDSUPPLY Qty: 100 2RF Rx Instructions: 4 times a day metoclopramide HCl [Reglan] 10 mg tablet 10 mg PO Q6H 7 Days Qty: 28 0RF levothyroxine 50 mcg tablet 50 mcg PO DAILY Qty: 90 2RF bisacodyl [Dulcolax (bisacodyl)] 5 mg tablet,delayed release (DR/EC) 20 mg PO ONCE 1 Days Qty: 4 0RF Rx Instructions: Day before procedure, prep day Take 4 tablets by mouth upon awakening followed by large glass of water polyethylene glycol 3350 [Miralax] 17 gram/dose powder 238 g PO ONCE PRN (Reason: laxative effect) 1 Days Qty: 238 0RF Rx Instructions: Take as directed by mouth the day before your procedure. oxycodone-acetaminophen [Percocet] 5-325 mg tablet 1 tab PO Q8H PRN (Reason: pain) Qty: 60 0RF Rx Instructions: Partial Fill upon patient request. Print Language: Irish
[2024-04-18 10:46] VITALS: BP 140/78; PULSE 91; RESP 16; TEMP 37; O2SAT 98
[2024-04-18] MEDS: Morphine Sulfate Immed Release 15 MG TABLET PO (10:47)
[2024-04-18] MEDS: Lidocaine 4 % Patch ADH..PATCH 1 PATCH TRANSDERMA (10:48)
[2024-04-18 10:56] VITALS: BP 140/78; PULSE 91; RESP 16; TEMP 37; O2SAT 98
[2024-04-18 10:57] LABS: Glucose, Whole Blood 93 mg/dL (60-115)
== END 2024-04-18 10:56 | disposition home or self-care (01) ==
PROVIDERS: Emergency Provider Emergency Medicine Emergency Medical Services; PCP Internal Medicine
DX: G89.29 Other chronic pain (principal); M25.512 Pain in left shoulder; E11.9 Type 2 diabetes mellitus without complications; Z79.82 Long term (current) use of aspirin; Z79.4 Long term (current) use of insulin; Z79.85 Long-term (current) use of injectable non-insulin antidiabetic drugs; Z79.02 Long term (current) use of antithrombotics/antiplatelets; Z79.891 Long term (current) use of opiate analgesic
CPT/HCPCS: 73030; 82947; 93005; 99283; 99284

== ENCOUNTER → 2024-04-18 07:50 | Outpatient (BNV) | payer OTHER, SELFPAY | PROVIDERS: Emergency Provider Emergency Medicine Emergency Medical Services; PCP Internal Medicine; Visit Provider Internal Medicine | DX: M25.512 Pain in left shoulder (principal) | CPT/HCPCS: 93010 ==

== ENCOUNTER → 2024-04-18 08:55 | Outpatient (BNV) | payer OTHER, SELFPAY | PROVIDERS: PCP Internal Medicine; Visit Provider Radiology Diagnostic Radiology | DX: M25.512 Pain in left shoulder (principal) | CPT/HCPCS: 73030 ==

== ENCOUNTER → 2024-04-26 09:20 | Outpatient (BNVA) | payer OTHER, SELFPAY | PROVIDERS: PCP Internal Medicine; Visit Provider Anesthesiology | DX: M53.3 Sacrococcygeal disorders, not elsewhere classified (principal); M79.18 Myalgia, other site; M47.816 Spondylosis without myelopathy or radiculopathy, lumbar region; M19.012 Primary osteoarthritis, left shoulder; M25.512 Pain in left shoulder | CPT/HCPCS: 99212 ==

== ENCOUNTER 2024-05-10 11:53 | Outpatient (REF) | payer OTHER, SELFPAY ==
[2024-05-10 16:25] LABS: MANUAL DIFF FLAG NO
[2024-05-10 16:37] LABS: Basophils Percent Auto 0.5 % (0-2); Eosinophils Absolute Auto 0.1 X10*3/uL (0.0-0.4); Eosinophils Percent Auto 1.5 % (0-4); Hematocrit 40.3 % (42.0-52.0); Hemoglobin 13.3 g/dl (14.0-18.0); Imm Gran Abs Auto 0.01 X10*3/uL (0.00-0.03); Imm Gran Pct Auto 0.1 % (0.0-0.4); Lymphocytes Absolute Auto 2.7 X10*3/uL (1.2-4.9); Lymphocytes Percent Auto 32.9 % (20-40); Mean Corpuscular Volume 90.8 fL (80.0-98.0); Mean Platelet Volume 10.2 fL (9.4-12.4); Monocytes Absolute Auto 0.7 X10*3/uL (0.1-1.2); Monocytes Percent Auto 9.1 % (2-11); Neutrophils Absolute Auto 4.5 x10*3/uL (2.0-8.3); Neutrophils Percent Auto 55.9 % (45-73); Platelet Count 270 X10*3/uL (160-400); Red Blood Count 4.44 X10*6/uL (4.60-5.80); Red Cell Distribution Width 13.7 % (11.0-16.0); White Blood Count 8.1 X10*3/uL (4.8-10.8)
[2024-05-10 16:45] LABS: Estimated Average Glucose 160 mg/dL; Hemoglobin A1C 191.4233 umol/L; Hemoglobin A1c % 7.2 % (<6.0); Total Hemoglobin (HGBA1C) 3478.2729 umol/L
[2024-05-10 16:48] LABS: Alanine Aminotransferase 22 U/L (0-40); Albumin Level 3.8 g/dL (3.5-5.0); Alkaline Phosphatase 116 U/L (39-117); Anion Gap 12 (12-20); Aspartate Amino Transferase 35 U/L (5-37); Bilirubin Total 0.4 mg/dL (0.0-1.0); Blood Urea Nitrogen 18 mg/dL (9-16); Calcium 8.6 mg/dL (8.4-10.2); Carbon Dioxide 20 mmol/L (22-29); Chloride 110 mmol/L (96-108); Estimated Glomerular Filt Rate 46; Glucose Random 191 mg/dL (60-115); Potassium 4.4 mmol/L (3.3-5.1); Sodium 138 mmol/L (135-145); Total Protein 7.4 g/dL (6.5-8.0)
[2024-05-10 16:51] LABS: Amphetamine Screen Urine Not Detected (Not Detect); Barbiturates, Urine Not Detected (Not Detect); Benzodiazepines Screen Urine Not Detected (Not Detect); Buprenorphine Scr Not Detected (Not Detect); Cannabinoid Screen Urine Not Detected (Not Detect); Cocaine Screen Urine Not Detected (Not Detect); Fentanyl, urine Not Detected (Not Detect); Methadone Screen, Urine Not Detected (Not Detect); Opiate Screen Urine Not Detected (Not Detect); Oxycodone Screen Urine Positive (Not Detect); Phencyclidine Screen Urine Not Detected (Not Detect)
[2024-05-10 17:59] LABS: Creatinine Urine 350.13 mg/dL; Microalbum/Creatinine Ratio Ur 8.2 ug/mg cr (<30)
[2024-05-15 13:19] LABS: Oxymorphone, Ur 127
[2024-05-15 13:21] LABS: Codeine, Ur NEGATIVE; Hydrocodone, Ur NEGATIVE; Hydromorphone, Ur NEGATIVE; Morphine, Ur NEGATIVE; Norhydrocodone, Ur NEGATIVE; Noroxycodone, Ur NEGATIVE; Oxycodone, Ur NEGATIVE
== END 2024-05-10 11:54 | disposition home or self-care (01) ==
LOC: HO.HMGCLDS 11:53
PROVIDERS: PCP Internal Medicine; Visit Provider Internal Medicine
DX: E10.3553 Type 1 diabetes mellitus with stable proliferative diabetic retinopathy, bilateral (principal); E10.21 Type 1 diabetes mellitus with diabetic nephropathy; E10.42 Type 1 diabetes mellitus with diabetic polyneuropathy; M54.16 Radiculopathy, lumbar region; E78.9 Disorder of lipoprotein metabolism, unspecified; E66.01 Morbid (severe) obesity due to excess calories; Z68.38 Body mass index [BMI] 38.0-38.9, adult; M53.3 Sacrococcygeal disorders, not elsewhere classified; I10 Essential (primary) hypertension; F11.20 Opioid dependence, uncomplicated
CPT/HCPCS: 80053; 80307; 80365; 82043; 82570; 83036; 85025; 99212; G0480

== ENCOUNTER 2024-05-10 11:53 | Outpatient (AMB) | payer OTHER, SELFPAY ==
[2024-05-10 11:57] VITALS: BP 126/60; PULSE 93; RESP 17; TEMP 36.6; O2SAT 97; BMI 37.6
--- NOTE | 2024-05-10 11:57 | A.OFFPC_ITS ---
Vital Signs 05/10/24 11:57 Height 5 ft 8 in Weight 247 lb 8 oz BMI 37.6 BP 126/60 Blood Pressure Location Rt brachial Position Sitting Respiration 17 Pulse 93 Pulse Source Pulse Oximeter Temp 97.9 F Temp Source Oral Pulse Oximetry (%) 97 Oxygen Delivery Method Room Air Intake Visit Reasons: 1 months f/up Allergies No Known Allergies Allergy (Verified 05/10/24 12:02) Medication List - Last Reconciled 05/10/24 by Shawn Johnson MD amlodipine-benazepril 10-20 mg 1 cap PO DAILY aspirin (Adult Low Dose Aspirin) 81 mg PO DAILY atorvastatin 10 mg PO BEDTIME bisacodyl (Dulcolax (bisacodyl)) 20 mg (4 x 5 mg) PO ONCE 1 day blood sugar diagnostic (FreeStyle Lite Strips) USE TO CHECK BLOOD SUGAR 3 TIMES DAILY: FASTING AND BEFORE MEALS cholecalciferol (vitamin D3) 25 mcg PO DAILY 90 days dorzolamide-timolol 22.3-6.8 mg/mL 1 drp ophthalmic (eye) BID dulaglutide (Trulicity) 4.5 mg (0.5 mL) subcut QWEEK 90 days flash glucose sensor (FreeStyle Ye 2 Sensor kit) Use with sensor to monitor blood sugar TID and as needed for s/s hypo/hyperglycemia fluticasone propionate 50 mcg/actuation (Allergy Relief (fluticasone)) 1 spray intranasal DAILY 30 days FreeStyle Ye 2 [place] (flash glucose scanning reader) Use with sensor to monitor blood sugar TID and as needed for s/s hypo/hyperglycemia NS FreeStyle Lite Meter (blood-glucose meter) Use to check blood sugar 4 times daily, fasting and AC NS insulin aspart U-100 (Novolog FlexPen U-100 Insulin aspart) 15 units (0.15 mL) subcut TID 90 days [insulin pen needles 4 times a day] lamotrigine 100 mg PO BID lancets (FreeStyle Lancets) Use to check blood sugar QID, fasting and AC Lantus Solostar U-100 Insulin (insulin glargine) subcutaneously 2 times a day; 50 units at night and 20 units in the morning 90 days NS levothyroxine 50 mcg PO DAILY lidocaine 5% (Lidoderm) 1 patch topical DAILY PRN MDD remove after 12 hours metoclopramide HCl (Reglan) 10 mg PO Q6H 7 days oxycodone-acetaminophen 5-325 mg (Percocet) 1 tab PO Q8H PRN pantoprazole 20 mg PO DAILY polyethylene glycol 3350 (Miralax) 238 grams PO ONCE PRN 1 day Tobacco use date assessed: 05/10/24 Fall risk assessment: No Falls in past year Last assessed Fall Risk: 05/10/24 Dental Screening Dental Screen Date: 05/10/24 Did you have a dental visit in the last 12 months?: No Did you have a dental problem in the last 6 months where you did not have access to dental care?: No Was dental information given to patient?: Patient has dentist HPI 1 months f/up HPI Details Follow-up appointment for medication refill - The patient is a 64-year-old male with H/o DM, diabetic nephropathy, Diabetic neuropathy, HTN, OA multiple joints, lumber HNP, stenosis, lexy shoulder pain, establish with pain managment [facility] [place] with Nephrolgy Dr Molina tomorrow fax [phone] - The patient has a history of chronic s ulder pain unresponsive to previous treatments including injections and chiropractic interventions. - Severe pain episodes have led to [facility] care; currently, the patient relies on Percocet for pain management, taking it 2 to 3 times a day. Patient Instructions - Attend the kidney specialist appointme regina on Wednesday at 2:00 PM in [place]. - Bring previous blood test results from February to Dr. Fine. - Continue taking Percocet every eight h ours as needed for shoulder pain relief. - Schedule the next appointment with me in one month. Review of Systems - General: No fever no chills - Neurological: No headaches no dizziness - Ear nose throat: No sore throat no hearing difficulty no ear pain - Cardiovascular: No syncope, no chest pain, no palpitations - Gastrointestinal: No nausea vomiting or diarrhea - Endocrine: No polyuria polydipsia no heat intolerance - Genitourinary: No dysuria , no blood in urine Physical Exam - General: No acute distress - HEENT: No acute findings - Neck: Supple - Respiratory system: Able to talk in f ull sentences, no audible wheeze - cardiovascular: S1-S2 regular in rat e and rhythm - Gastrointestinal: No pain - Extremities: No new findings - DIRECTOR OF COMPLIANCE: Alert awake oriented x3 motor se nsory intact - Skin: Normal turgor PFSH Medical History Hypothyroid Glaucoma Chronic SI joint pain Lumbar radiculopathy Neuropathy BPH (benign prostatic hyperplasia) Elevated cholesterol GERD (gastroesophageal reflux disease) CKD (chronic kidney disease) Diabetes HTN (hypertension) Surgical History Hx of cataract surgery History of surgery on lower extremity History of shoulder surgery Family History Father Diabetes Hypertension Cancer Mother Hypertension Diabetes Social History Housing: House Patient Tobacco Use Status: Never used Tobacco e-Cigarette/Vaping Use: Never Used service: No Current occupational status: disabled Cognitive needs: No Hearing needs: No Vision needs: Yes Questionnaire Thrive Questionnaire Date Thrive assessed: 04/12/24 AUDIT C Alcohol Use Questionnaire (AUDIT-C) 1. How often do you have a drink containing alcohol?: Never 3. How often do you have six or more drinks on one occasion?: Never Total Score: 0 Score Reviewed/Action Taken: Yes AMINATA-7 AMB Questionnaire AMINATA-7 Date AMINATA - 7 assessed: 04/12/24 Source: Developed by Drs. Josiah Bailey, Gema Zimmerman, Brian Jo and colleagues, with an educational lovely from [employer]. Physical exam (Primary Care) Vital Signs: Last Vital Signs Temp 97.9 F 05/10/24 11:57 Pulse 93 05/10/24 11:57 Resp 17 05/10/24 11:57 BP 126/60 05/10/24 11:57 Pulse Ox 97 05/10/24 11:57 Oxygen Delivery Method Room Air 05/10/24 11:57 BMI result Body Mass Index 37.6 Tobacco/Smoking Status: Tobacco use Status Tobacco use date assessed 05/10/24 05/10/24 12:03 Patient Tobacco Use Status Never used Tobacco 05/10/24 12:03 e-Cigarette/Vaping Use Never Used 05/10/24 12:03 Thrive Assessment: Date of Thrive Assessment Date Thrive assessed 04/12/24 05/10/24 12:03 Coding Level of Care Code Est Pt Level 4 (42884) Complex EM visit Add On G2211 Diagnoses 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 E10.3553 Diabetes mellitus complication detail: with diabetic retinopathy Diabetes mellitus complication status: with ophthalmic complications Diabetic retinopathy severity: with proliferative retinopathy Laterality: bilateral Proliferative retinopathy type: stable 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 E10.21 Diabetes mellitus type: type 1 Diabetic polyneuropathy associated with type 1 diabetes mellitus E10.42 Diabetes mellitus complication detail: diabetic polyneuropathy Diabetes mellitus type: type 1 Left lumbar radiculitis M54.16 Lipid disorder E78.9 Class 2 severe obesity due to excess calories with serious comorbidity and body mass index (BMI) of 38.0 to 38.9 in adult E66.01; Z68.38 Body mass index: BMI 38.0-38.9 Obesity classification: adult class 2 (BMI 35 - 39.9) Serious obesity comorbidity presence: with serious comorbidity Sacroiliac joint dysfunction of left side M53.3 Hypertension, essential I10 Narcotic dependence F11.20 Assessment & Plan Assessment & Plan (1) Insulin dependent type 1 diabetes mellitus: Code(s): E10.9 - Type 1 diabetes mellitus without complications Category: Medical Qualifiers: Diabetes mellitus complication detail: with diabetic retinopathy Diabetes mellitus complication status: with ophthalmic complications Diabetic retinopathy severity: with proliferative retinopathy Laterality: bilateral Proliferative retinopathy type: stable Qualified Code(s): E10.3553 - Type 1 diabetes mellitus with stable proliferative diabetic retinopathy, bilateral (2) Diabetic nephropathy: Code(s): E11.21 - Type 2 diabetes mellitus with diabetic nephropathy Category: Medical Qualifiers: Diabetes mellitus type: type 1 Qualified Code(s): E10.21 - Type 1 diabetes mellitus with diabetic nephropathy (3) Diabetic neuropathy: Code(s): E11.40 - Type 2 diabetes mellitus with diabetic neuropathy, unspecified Category: Medical Qualifiers: Diabetes mellitus complication detail: diabetic polyneuropathy Diabetes mellitus type: type 1 Qualified Code(s): E10.42 - Type 1 diabetes mellitus with diabetic polyneuropathy (4) Left lumbar radiculitis: Code(s): M54.16 - Radiculopathy, lumbar region Category: Medical (5) Lipid disorder: Code(s): E78.9 - Disorder of lipoprotein metabolism, unspecified Category: Medical (6) Obesity due to excess calories: Code(s): E66.09 - Other obesity due to excess calories Category: Medical Qualifiers: Body mass index: BMI 38.0-38.9 Obesity classification: adult class 2 (BMI 35 - 39.9) Serious obesity comorbidity presence: with serious comorbidity Qualified Code(s): E66.01 - Morbid (severe) obesity due to excess calories; Z68.38 - Body mass index [BMI] 38.0-38.9, adult (7) Sacroiliac joint dysfunction of left side: Code(s): M53.3 - Sacrococcygeal disorders, not elsewhere classified Category: Medical (8) Hypertension, essential: Code(s): I10 - Essential (primary) hypertension Category: Medical (9) Narcotic dependence: Code(s): F11.20 - Opioid dependence, uncomplicated Category: Medical Plan Follow-up appointment for medication refill - The patient is a 64-year-old male with H/o DM, diabetic nephropathy, Diabetic neuropathy, HTN, OA multiple joints, lumber HNP, stenosis, lexy shoulder pain, establish with pain managment [facility] [place] with Nephrolgy Dr Molina tomorrow fax [phone] - The patient has a history of chronic shoulder pain unresponsive to previous treatments including injections and chiropractic interventions. - Severe pain episodes have led to emergency care; currently, the patient relies on Percocet for pain management, taking it 2 to 3 times a day. Patient Instructions - Attend the kidney specialist appointment on Wednesday at 2:00 PM in [place]. - Bring previous blood test results from February to Dr. Fine. - Continue taking Percocet every eight hours as needed for shoulder pain relief. - Schedule the next appointment with me in one month. Orders: Orders Hemoglobin A1c Today E10.21 - Type 1 diabetes mellitus with diabetic nephropathy, E10.3553 - Type 1 diabetes mellitus with stable proliferative diabetic retinopathy, bilateral, E10.42 - Type 1 diabetes mellitus with diabetic polyneuropathy, E66.01 - Morbid (severe) obesity due to excess calories, E78.9 - Disorder of lipoprotein metabolism, unspecified, F11.20 - Opioid dependence, uncomplicated, I10 - Essential (primary) hypertension, M53.3 - Sacrococcygeal disorders, not elsewhere classified, M54.16 - Radiculopathy, lumbar region, Z68.38 - Body mass index [BMI] 38.0-38.9, adult Microalbumin, Random (w Creat) Today E10.21 - Type 1 diabetes mellitus with diabetic nephropathy, E10.3553 - Type 1 diabetes mellitus with stable proliferative diabetic retinopathy, bilateral, E10.42 - Type 1 diabetes mellitus with diabetic polyneuropathy, E66.01 - Morbid (severe) obesity due to excess calories, E78.9 - Disorder of lipoprotein metabolism, unspecified, F11.20 - Opioid dependence, uncomplicated, I10 - Essential (primary) hypertension, M53.3 - Sacrococcygeal disorders, not elsewhere classified, M54.16 - Radiculopathy, lumbar region, Z68.38 - Body mass index [BMI] 38.0-38.9, adult Opiates GCMS Expanded, Ur Today F11.20 - Opioid dependence, uncomplicated Complete Blood Count Auto Diff Today E10.21 - Type 1 diabetes mellitus with diabetic nephropathy, E10.3553 - Type 1 diabetes mellitus with stable proliferative diabetic retinopathy, bilateral, E10.42 - Type 1 diabetes mellitus with diabetic polyneuropathy, E66.01 - Morbid (severe) obesity due to excess calories, E78.9 - Disorder of lipoprotein metabolism, unspecified, F11.20 - Opioid dependence, uncomplicated, I10 - Essential (primary) hypertension, M53.3 - Sacrococcygeal disorders, not elsewhere classified, M54.16 - Radiculopathy, lumbar region, Z68.38 - Body mass index [BMI] 38.0-38.9, adult Comprehensive Met. Panel Today E10.21 - Type 1 diabetes mellitus with diabetic nephropathy, E10.3553 - Type 1 diabetes mellitus with stable proliferative diabetic retinopathy, bilateral, E10.42 - Type 1 diabetes mellitus with diabetic polyneuropathy, E66.01 - Morbid (severe) obesity due to excess calories, E78.9 - Disorder of lipoprotein metabolism, unspecified, F11.20 - Opioid dependence, uncomplicated, I10 - Essential (primary) hypertension, M53.3 - Sacrococcygeal disorders, not elsewhere classified, M54.16 - Radiculopathy, lumbar region, Z68 .38 - Body mass index [BMI] 38.0-38.9, adult Drug Screen Urine Today F11.20 - Opioid dependence, uncomplicated Medications: Changed From oxycodone-acetaminophen 5-325 mg (Percocet) Partial Fill upon patient request. 1 tab PO Q8H PRN 60 tabs 0RF pain M13.0 - Polyarthritis, unspecified, M25.511 - Pain in right shoulder, M47.816 - Spondylosis without myelopathy or radiculopathy, lumbar region To oxycodone-acetaminophen 5-325 mg (Percocet) Partial Fill upon patient request. 1 tab PO Q8H 30 days PRN 60 tabs 0RF pain M13.0 - Polyarthritis, unspecified, M25.511 - Pain in right shoulder, M47.816 - Spondylosis without myelopathy or radiculopathy, lumbar region
--- OUTSIDE RECORDS SUMMARY | 2024-05-10 12:29 | XMS_ITS | Encounter Summary ---
Author Organization [facility] Address [address] [place] [address] Phone Care Team Providers Care Boatbuilder Wood Name Role Phone Edward Witt MD Primary Care Provider [phone] Encounter Details Date Type Department Care Team (Late st Contact Info) Description 06/23/2023 Documentation Only [facility] [address] [place] [address] Emily Barnhart [address] [place] [address] Social History Tobacco Use Types [...] Visit [facility] [address] [place] [address] Torey Tom MD [address] [place] [address] [place] [address] documented as of this encounter Visit Diagnoses Not on filedocumented in this encounter Care Teams Boatbuilder Wood Relationship Specialty Start Date End Date Edward Witt MD [address] [place] [address] PCP - General Internal Medicine 05/09/24 documented as of this encounter
--- OUTSIDE RECORDS SUMMARY | 2024-05-10 12:29 | XMS_ITS | Clinical Summary ---
Author Organization [facility], Address [address] [place] [address] [place] [address] Phone Care Team Providers Care Program Medical Director Name Role Phone Edward Witt MD Primary Care Provider [phone] Allergies No known active allergies Medications amLODIPine-carlota zepril (LOTREL) 10-20 MG per capsule Take 1 capsule by mouth 1 (one) time each day Active aspirin 81 MG chewable tablet Chew 81 mg 1 (one) time each day Active atorvastatin (LIPITOR) 10 MG tablet Take 10 mg by mouth 1 (one) time each day Active Cholecalciferol (D3 Super Strength) 50 MCG (2000 UT) capsule Take by mouth Active DULAGLUTIDE [...] Visit [facility], [address] [place] [address] Torey Tom MD [address] [place] [address] Health Maintenance Due Date Last [...] PM EST) Hemoglobin A1C 8.2(H) (4.0-5.6) % [facility] Comment: MONITORING: In known diabetic patients, hemoglobin A1c targets should be discussed with health care provider. DIAGNOSTIC USE: ??The [place] Diabetes Association (ADA) and the World Health [...] Supplement 1 Testing performed or reported by [facility], a Service of [facility], [address] [place] [address] Aaliyah Pastrana MD, Wallpaperer Helper [facility]# [id number] Blood (Blood, Venous) 04/10/2022 3:03 PM EST 04/10/2022 3:04 PM EST us Torey Tom MD LAB BLOOD ORDERABLES Final Re sult [facility] from Last 3 Months or Most Recently Relevant to Health Maintenance Insurance [employer] Care Teams Program Medical Director Relationship Specialty Start Date End Date Edward Witt MD [address] [place] PCP - General Internal Medicine 05/09/24
--- OUTSIDE RECORDS SUMMARY | 2024-05-10 12:29 | XMS_ITS | Clinical Summary ---
Author Organization [address] [place] [address] Address [address] [place] [address] Phone Care Team Providers Care Qc Tech Name Role Phone Shawn Johnson MD Primary Care Provider [phone] Allergies No known active allergies Medications amLODIPine-carlota zepril (LOTREL) 10-20 mg per capsule Take 1 [...] (one) time each day if needed for constipation . Do not crush, chew, or split. Active [...] Do not crush, chew, or split. Active oxyCODONE-aceta minophen (PERCOCET) 5-325 mg per tablet Take 1 [...] 03/06/2024 2:15 PM EST Consult Orthopedic Surgery [facility] [address] [phone] Satya Rodgers DPM Dermatophytosis of nail (Primary [...] at Not on file Legal Sex Male 3:11 PM EST Gender Identity Not on file [...] Upcoming Encounters Date Type Department Care Team ([facility] st Contact Info) Description 06/05/2024 1:45 PM EDT Office Visit Orthopedic Surgery [facility] [address] [phone] Satya Rodgers DPM [address] [address] Health Maintenance Due Date Last Done Comments Diabetes: Annual GFR (Glomer ular Filtration Rate) 1960 COVID-19 Vaccine (#1) 1965 Diabetes: Annual Foot Exam 1970 Diabetes: Annual Retina Eye Exam 1970 Pneumococcal Vaccine: 50+ Ye ars (1 of 2 - PCV) 1979 Pneumococcal Vaccine: Pediat rics (0 to 5 Years) and At-Risk Patients (6 to 64 Years) (1 of 2 - PCV) 1979 Zoster Vaccines (1 of 2) 2010 RSV [...] patient's age to complete this topic Meningococcal B Vacine Aged Out No lo nger eligible based on patient's age to complete this topic RSV Immunization Patients Un chanda 20 months Aged Out No longer eligible b ased on patient's age to complete this topic Varicella Vaccines Aged Out No longer eligible based on patient's age to complete this topic Insurance [employer] Care Teams Qc Tech Relationship Specialty Start Date End Date Shawn Johnson MD [address] [place] [phone] PCP - General 12/23/23
--- OUTSIDE RECORDS SUMMARY | 2024-05-10 12:29 | XMS_ITS | Encounter Summary ---
Author Organization [facility] Address [address] [place] [address] Phone Care Team Providers Care Counter Clerk [employer] Name Role Phone Edward Witt MD Primary Care Provider [phone] Encounter Details Date Type Department Care Team (Late st Contact Info) Description 07/09/2023 Documentation Only [facility] [address] [place] [address] Emily Barnhart [address] [place] [address] Social History Tobacco Use Types [...] Visit [facility] [address] [place] [address] Torey Tom MD [address] [place] [address] [place] [address] documented as of this encounter Visit Diagnoses Not on filedocumented in this encounter Care Teams Counter Clerk [employer] Relationship Specialty Start Date End Date Edward Witt MD [address] [place] [address] PCP - General Internal Medicine 05/09/24 documented as of this encounter
--- OUTSIDE RECORDS SUMMARY | 2024-05-10 12:29 | XMS_ITS | Encounter Summary ---
Author Organization [facility] [place], Address [address] [place] [address] Phone Care Team Providers Care Family Service Aide Name Role Phone Edward Witt MD Primary Care Provider [phone] Encounter Details Date Type Department Care Team (Late st Contact Info) Description 03/24/2022 Documentation Only [facility] [address] [place] [phone] Shawn Johnson [place] [address] Social History Tobacco Use Types Packs/Day Years [...] Visit [facility] [address] [place] [phone] Torey Tom MD [address] [place] [address] [place] [phone] documented as of this encounter Visit Diagnoses Not on filedocumented in this encounter Care Teams Family Service Aide Relationship Specialty Start Date End Date Edward Witt MD [address] [place] [address] PCP - General Internal Medicine 05/09/24 documented as of this encounter
--- OUTSIDE RECORDS SUMMARY | 2024-05-10 12:29 | XMS_ITS | Encounter Summary ---
Author Organization [facility] Address [address] [place] [address] Phone Care Team Providers Care Litigation Docket Manager Name Role Phone Edward Witt MD Primary Care Provider [phone] Encounter Details Date Type Department Care Team (Late st Contact Info) Description 11/02/2023 Documentation Only [facility] [address] [place] [address] Emily Barnhart [address] [place] [address] Social History Tobacco Use Types [...] Visit [facility] [address] [place] [address] Torey Tom MD [address] [place] [address] Dr[place] [address] documented as of this encounter Visit Diagnoses Not on filedocumented in this encounter Care Teams Litigation Docket Manager Relationship Specialty Start Date End Date Edward Witt MD [address] [place] [address] PCP - General Internal Medicine 05/09/24 documented as of this encounter
--- OUTSIDE RECORDS SUMMARY | 2024-05-10 12:29 | XMS_ITS | Encounter Summary ---
Author Organization [facility] Address [address] [place] [address] Phone Care Team Providers Care Long Term Name Role Phone Edward Witt MD Primary Care Provider [phone] Encounter Details Date Type Department Care Team (Late st Contact Info) Description 11/02/2023 Documentation Only [facility] [address] [place] [address] Emily Barnhart [address] [place] [address] Social History Tobacco Use Types [...] [facility] [address] [place] [address] Torey Tom MD [address] [place] [address] [place] [address] documented as of this encounter Visit Diagnoses Not on filedocumented in this encounter Care Teams Long Term Relationship Specialty Start Date End Date Edward Witt MD [address] [place] [address] PCP - General Internal Medicine 05/09/24 documented as of this encounter
--- OUTSIDE RECORDS SUMMARY | 2024-05-10 12:29 | XMS_ITS | Encounter Summary ---
Author Organization [facility] Address [address] [place] [address] Phone Care Team Providers Care Machine Cementer Name Role Phone Edward Witt MD Primary Care Provider [phone] Encounter Details Date Type Department Care Team (Late st Contact Info) Description 06/23/2023 Documentation Only [facility] [address] [place] [address] Emily Barnhart [address] [place] [address] Social History Tobacco Use Types [...] Visit [facility] [address] [place] [address] Torey Tom MD [address] [place] [address] [place] [address] documented as of this encounter Visit Diagnoses Not on filedocumented in this encounter Care Teams Machine Cementer Relationship Specialty Start Date End Date Edward Witt MD [address] [place] [address] PCP - General Internal Medicine 05/09/24 documented as of this encounter
== END 2024-05-10 12:39 | disposition home or self-care (01) ==
PROVIDERS: PCP Internal Medicine; Visit Provider Internal Medicine
DX: E10.3553 Type 1 diabetes mellitus with stable proliferative diabetic retinopathy, bilateral (principal); E10.21 Type 1 diabetes mellitus with diabetic nephropathy; E10.42 Type 1 diabetes mellitus with diabetic polyneuropathy; M54.16 Radiculopathy, lumbar region; E78.9 Disorder of lipoprotein metabolism, unspecified; E66.01 Morbid (severe) obesity due to excess calories; Z68.38 Body mass index [BMI] 38.0-38.9, adult; M53.3 Sacrococcygeal disorders, not elsewhere classified; I10 Essential (primary) hypertension; F11.20 Opioid dependence, uncomplicated

== ENCOUNTER 2024-05-24 09:25 | Outpatient (REF) | payer OTHER, SELFPAY ==
--- OUTSIDE RECORDS SUMMARY | 2024-05-24 11:12 | XMS_ITS | Encounter Summary ---
Author Organization [facility] Address [address] [place] [address] Phone Care Team Providers Care Lens Coating Technician Name Role Phone Edward Witt MD Primary Care Provider [phone] Encounter Details Date Type Department Care Team (Late st Contact Info) Description 11/02/2023 Documentation Only [facility] [address] [place] [address] Emily Barnhart [address] [place] [address] Social History Tobacco Use Types [...] Visit [facility] [address] [place] [address] Torey Tom MD [address] [place] [address] [place] [address] documented as of this encounter Visit Diagnoses Not on filedocumented in this encounter Care Teams Lens Coating Technician Relationship Specialty Start Date End Date Edward Witt MD [address] [place] [address] PCP - General Internal Medicine 05/09/24 documented as of this encounter
--- OUTSIDE RECORDS SUMMARY | 2024-05-24 11:12 | XMS_ITS | Encounter Summary ---
Author Organization [facility] Address [address] [place] [address] Phone Care Team Providers Care Preservative Filler Machine Operator Name Role Phone Edward Witt MD Primary Care Provider [phone] Encounter Details Date Type Department Care Team (Late st Contact Info) Description 06/23/2023 Documentation Only [facility] [address] [place] [address] Emily Barnhart [address] [place] [address] Social History Tobacco Use Types [...] Visit [facility] [address] [place] [address] Torey Tom MD [address] [place] [address] [place] [address] documented as of this encounter Visit Diagnoses Not on filedocumented in this encounter Care Teams Preservative Filler Machine Operator Relationship Specialty Start Date End Date Edward Witt MD [address] [place] [address] PCP - General Internal Medicine 05/09/24 documented as of this encounter
--- OUTSIDE RECORDS SUMMARY | 2024-05-24 11:12 | XMS_ITS | Encounter Summary ---
Author Organization [facility] Address [address] [place] [address] Phone Care Team Providers Care Camp Assistant Name Role Phone Edward Witt MD Primary Care Provider [phone] Encounter Details Date Type Department Care Team (Late st Contact Info) Description 06/23/2023 Documentation Only [facility] [address] [place] [address] Emily Barnhart [address] [place] [address] Social History Tobacco Use Types [...] [facility] [address] [place] [address] Torey Tom MD [address] [place] [address] [place] [address] documented as of this encounter Visit Diagnoses Not on filedocumented in this encounter Care Teams Camp Assistant Relationship Specialty Start Date End Date Edward Witt MD [address] [place] [address] PCP - General Internal Medicine 05/09/24 documented as of this encounter
--- OUTSIDE RECORDS SUMMARY | 2024-05-24 11:12 | XMS_ITS | Clinical Summary ---
Author Organization [facility] [place], Address [address] [place] [address] Phone Care Team Providers Care Account Maintenance Representative Name Role Phone Edward Witt MD Primary Care Provider [phone] Allergies No known active allergies Medications amLODIPine-carlota [...] Visit [facility] [place], [address] [place] [address] Torey Tom MD 05/11/2024 Documentation Only [facility] [place], [address] [place] [address] Obey Emily from Last 3 [...] Visit [facility] [place], [address] [place] [address] Torey Tom MD [address] [place] [address] [place] [phone] Health Maintenance Due Date Last Done Comments [...] PM EST) Hemoglobin A1C 8.2(H) (4.0-5.6) % [facility] Comment: MONITORING: In known diabetic patients, hemoglobin A1c targets should be discussed with health care provider. DIAGNOSTIC USE: ??The [place] Diabetes Association (ADA) and the World Health [...] Supplement 1 Testing performed or reported by [facility], a Service of [facility], [address] [place] [address] Aaliyah Pastrana MD, Police Patrol Lieutenant [facility]# [id number] Blood (Blood, Venous) 04/10/2022 3:03 PM EST 04/10/2022 3:04 PM EST us Torey Tom MD LAB BLOOD ORDERABLES Final Re sult [facility] from Last 3 Months or Most Recently Relevant to Health Maintenance [place] [address] [employer] Care Teams Account Maintenance Representative Relationship Specialty Start Date End Date Edward Witt MD [address] [place] [address] PCP - General Internal Medicine 05/09/24
--- OUTSIDE RECORDS SUMMARY | 2024-05-24 11:12 | XMS_ITS | Encounter Summary ---
Author Organization [facility] Address [address] [place] [address] Phone Care Team Providers Care Fisheries Inspector Name Role Phone Edward Witt MD Primary Care Provider [phone] Encounter Details Date Type Department Care Team (Late st Contact Info) Description 07/09/2023 Documentation Only [facility] [address] [place] [address] Emily Barnhart [address] [place] [address] Social History Tobacco Use Types [...] Visit [facility] [address] [place] [address] Torey Tom MD [address] [place] [address] [place] [address] documented as of this encounter Visit Diagnoses Not on filedocumented in this encounter Care Teams Fisheries Inspector Relationship Specialty Start Date End Date Edward Witt MD [address] [place] [address] PCP - General Internal Medicine 05/09/24 documented as of this encounter
--- OUTSIDE RECORDS SUMMARY | 2024-05-24 11:12 | XMS_ITS | Encounter Summary ---
Author Organization [facility] Address [address] [place] [address] Phone Care Team Providers Care Senior Datastage Developer Name Role Phone Edward Witt MD Primary Care Provider [phone] Encounter Details Date Type Department Care Team (Late st Contact Info) Description 05/15/2024 2:00 PM EST Office Visit [facility] [address] [place] [address] Torey Tom MD [address] [place] [address] Social History Tobacco Use Types [...] Office Visit [facility] [address] [place] [address] Torey Tom MD [address] [place] [address] documented as of this encounter Visit Diagnoses Not on filedocumented in this encounter Care Teams Senior Datastage Developer Relationship Specialty Start Date End Date Edward Witt MD [address] [place], [place] PCP - General Internal Medicine 05/09/24 documented as of this encounter
--- OUTSIDE RECORDS SUMMARY | 2024-05-24 11:12 | XMS_ITS | Encounter Summary ---
Author Organization [facility] Address [address] [place] [address] Phone Care Team Providers Care Lens Edger Name Role Phone Edward Witt MD Primary Care Provider [phone] Encounter Details Date Type Department Care Team (Late st Contact Info) Description 11/02/2023 Documentation Only [facility] [address] [place] [address] Emily Barnhart [address] [place] [address] Social History Tobacco Use Types [...] Visit [facility] [address] [place] [address] Torey Tom MD [address] [place] [address] [place] [address] documented as of this encounter Visit Diagnoses Not on filedocumented in this encounter Care Teams Lens Edger Relationship Specialty Start Date End Date Edward Witt MD [address] [place] [address] PCP - General Internal Medicine 05/09/24 documented as of this encounter
--- OUTSIDE RECORDS SUMMARY | 2024-05-24 11:12 | XMS_ITS | Encounter Summary ---
Author Organization [facility], Address [address] [place] [address] Phone Care Team Providers Care Narrow Fabric Loom Fixer Name Role Phone Edward Witt MD Primary Care Provider [phone] Encounter Details Date Type Department Care Team (Late st Contact Info) Description 03/24/2022 Documentation Only [facility] [address] [place] [phone] Shawn Johnson MD [facility] [place] [address] Social History Tobacco Use Types Packs/Day Years [...] [facility] [address] [place] [address] Torey Tom MD [address] [place] [address] [place] [phone] documented as of this encounter Visit Diagnoses Not on filedocumented in this encounter Care Teams Narrow Fabric Loom Fixer Relationship Specialty Start Date End Date Edward Witt MD [facility] [address] [place] [address] PCP - General Internal Medicine 05/09/24 documented as of this encounter
--- OUTSIDE RECORDS SUMMARY | 2024-05-24 11:12 | XMS_ITS | Clinical Summary ---
Author Organization [address] [place] [address] Address [address] [place] [address] Phone Care Team Providers Care Access Services Representative Name Role Phone Shawn Johnson MD Primary Care Provider [phone] Allergies No known active allergies Medications amLODIPine-carlota [...] 03/06/2024 2:15 PM EST Consult Orthopedic Surgery [facility] [address] [phone] Satya Rodgers DPM Dermatophytosis of nail (Primary [...] Upcoming Encounters Date Type Department Care Team ([facility] st Contact Info) Description 06/05/2024 1:45 PM EDT Office Visit Orthopedic Surgery [facility] [address] [phone] Satya Rodgers DPM [address] [address] Health Maintenance Due Date Last Done Comments [...] patient's age to complete this topic Insurance [facility] [place] [address] Care Teams Access Services Representative Relationship Specialty Start Date End Date Shawn Jonhson MD [address] [place] [phone] PCP - General 12/23/23
--- OUTSIDE RECORDS SUMMARY | 2024-05-24 11:12 | XMS_ITS | Encounter Summary ---
Author Organization [facility] Address [address] [place] [address] Phone Care Team Providers Care Store Operations Associate Name Role Phone Edward Witt MD Primary Care Provider [phone] Encounter Details Date Type Department Care Team (Late st Contact Info) Description 05/11/2024 Documentation Only [facility] [address] [place] [address] Emily Barnhart [address] [place] [address] Social History Tobacco Use Types [...] Visit [facility] [address] [place] [address] Torey Tom MD [address] [place] [address] [place] [address] documented as of this encounter Visit Diagnoses Not on filedocumented in this encounter Care Teams Store Operations Associate Relationship Specialty Start Date End Date Edward Witt MD [address] [place] [address] PCP - General Internal Medicine 05/09/24 documented as of this encounter
[2024-05-25 08:14] LABS: H Pylori Breath Test Negative (Negative)
== END 2024-05-24 09:26 | disposition home or self-care (01) ==
LOC: HO.LAB 09:25
PROVIDERS: PCP Internal Medicine; Visit Provider Physician Assistant
DX: R10.13 Epigastric pain (principal)
CPT/HCPCS: 83013; 99212

== ENCOUNTER 2024-05-24 09:25 | Outpatient (AMB) | payer OTHER, SELFPAY ==
--- NOTE | 2024-05-24 09:27 | AM.OFFWIN_ITS ---
Intake Vital Signs 05/24/24 09:29 Weight 250 lb BP 114/76 Blood Pressure Location Rt brachial Position Sitting Pulse 93 Pulse Source Pulse Oximeter Temp 97.5 F Temp Source Oral Pulse Oximetry (%) 97 Oxygen Delivery Method Room Air Intake Visit Reasons: EP Stomach issues Intake Note: Patient here for stomach pain and vomiting that has been present for about 1 week. Patient Tobacco Use Status: Never used Tobacco Allergies No Known Allergies Allergy (Verified 05/24/24 09:30) Do you need a note to return to daycare/school/sports/work: No HPI HPI Comments History of Present Illness Details History of Present Illness - The patient is a 64-year-old male pres enting with gastric discomfort. - Symptoms onset about one week prior, p resenting as postprandial stomach pain and bloating. - Notable symptoms involve a feeling nahun t something is obstructing swallowing, and the stomach feels distended. Complaints include excessive burping and gas. - The patient denies any fevers, vomitin g or diarrhea in association with these symptoms. - Gastric distress limits the patient?s intake due to fear of exacerbating diabetes-related hypoglycemia. - Planned diagnostic procedures (endosco py and colonoscopy) were postponed because of unrelated shoulder pain, he had to cancel and has not rescheduled these tests his PCP wanted him to get yet. - There has been no utilization of over- the-counter gastroprotective agents thus far. Physical Exam General: Cooperative, healthy appearing, comfortable, no acute distress and well developed Orientation: Patient oriented x3 Limitations: No limitations Head: Normal to inspection Ears: Hearing grossly normal bilaterally Nose: Normal external nose present Face and sinus: Normal facial exam Eyes: Appearance normal, both eyes and all related structures Neck: Normal visual inspection and Yes full ROM Respiratory: Normal respiratory effort and able to speak in complete sentences. Clear to auscultation bilaterally Cardiovascular: Regular rate and rhythm. Normal S1 and S2 GI: obese, soft, slight TTP in epigastric and LLQ, neagtive Yost's Skin: No rashes or lesions noted Neuro: Patient oriented x3 Extremities: Normal to inspection [facility] Medical History Hypothyroid Glaucoma Chronic SI joint pain Lumbar radiculopathy Neuropathy BPH (benign prostatic hyperplasia) Elevated cholesterol GERD (gastroesophageal reflux disease) CKD (chronic kidney disease) Diabetes HTN (hypertension) Surgical History Hx of cataract surgery History of surgery on lower extremity History of shoulder surgery Family History Father Diabetes Hypertension Cancer Mother Hypertension Diabetes Social History Housing: House Patient Tobacco Use Status: Never used Tobacco e-Cigarette/Vaping Use: Never Used service: No Current occupational status: disabled Cognitive needs: No Hearing needs: No Vision needs: Yes Review of Systems Const All systems reviewed & are unremarkable except as noted in HPI and below Physical Exam Vital Signs: Last Vital Signs Temp 97.5 F 05/24/24 09:29 Pulse 93 05/24/24 09:29 BP 114/76 05/24/24 09:29 Pulse Ox 97 05/24/24 09:29 Oxygen Delivery Method Room Air 05/24/24 09:29 Assessment & Plan Assessment & Plan (1) Abdominal pain: Code(s): R10.9 - Unspecified abdominal pain Qualifiers: Abdominal location: epigastric Qualified Code(s): R10.13 - Epigastric pain Plan: VSS, pt well appearing and abdominal exam slight TTP epigastric and LLQ. A Helicobacter pylori test will be conducted and results communicated subsequently. If positive, an appropriate triple therapy regimen will be initiated. Recomended Pepto-Bismol in kita meanwhile. Further therapeutic management will be adjusted based on investigative outcomes. Encouraged patient to reschedule his pending endoscopy and colonoscopy to further evaluation and assess for other anomalies contributing to gastric symptoms. Patient was informed and verbally consented to the use of an ambient scribe for clinic note documentation during this visit. Orders: Orders H Pylori Breath Test Today R10.9 - Unspecified abdominal pain Coding Level of Care Code Est Pt Level 4 (89303) Diagnoses Epigastric pain R10.13 Abdominal location: epigastric
[2024-05-24 09:29] VITALS: BP 114/76; PULSE 93; TEMP 36.4; O2SAT 97
--- OUTSIDE RECORDS SUMMARY | 2024-05-24 10:35 | XMS_ITS | Encounter Summary ---
Author Organization [facility] Address [address] [place] [address] Phone Care Team Providers Care Software Quality Assurance Specialist Name Role Phone dEward Witt MD Primary Care Provider [phone] Encounter Details Date Type Department Care Team (Late st Contact Info) Description 06/23/2023 Documentation Only [facility] [address] [place] [address] Emily Barnhart [address] [place] [address] Social History Tobacco Use Types [...] Care Team (Late st Contact Info) Description 11/16/2024 2:30 PM EDT Office Visit [facility] [address] [place] [address] Torey Tom MD [address] [place] [address] Dr. Zuleima [place] [address] documented as of this encounter Visit Diagnoses Not on filedocumented in this encounter Care Teams Software Quality Assurance Specialist Relationship Specialty Start Date End Date Edward Witt MD [address] [place] [address] PCP - General Internal Medicine 05/09/24 documented as of this encounter
--- OUTSIDE RECORDS SUMMARY | 2024-05-24 10:35 | XMS_ITS | Encounter Summary ---
Author Organization [facility] Address [address] [place] [address] Phone Care Team Providers Care Appliance Mechanic Name Role Phone Edward Witt MD Primary Care Provider [phone] Encounter Details Date Type Department Care Team (Late st Contact Info) Description 05/15/2024 2:00 PM EST Office Visit [facility] [address] [place] [address] Torey Tom MD [address] [place] [address] Social History Tobacco Use Types Packs/Day Years [...] on file documented as of this encounter Last Filed Vital Signs Vital Sign Reading Time Taken Comments Blood Pressure 134/73 05/15/2024 2:17 PM EST Pulse 87 05/15/2024 2:17 PM EST Temperature - - Respiratory Rate - - Oxygen Saturation - - Inhaled Oxygen Concentration - - Weight - - Height - - Body Mass Index - - documented in this encounter Plan of Treatment Upcoming Encounters Date Type Department Care Team (Late st Contact Info) Description 11/16/2024 2:30 PM EDT Office Visit [facility] [address] [place] [address] Torey Tom MD [address] [place] [address] documented as of this encounter Visit Diagnoses Not on filedocumented in this encounter Care Teams Appliance Mechanic Relationship Specialty Start Date End Date Edward Witt MD [address] [place], [place] PCP - General Internal Medicine 05/09/24 documented as of this encounter
--- OUTSIDE RECORDS SUMMARY | 2024-05-24 10:35 | XMS_ITS | Clinical Summary ---
Author Organization [address] [place] [address] Address [address] [place] [address] Phone Care Team Providers Care Artificial Fly Tier Name Role Phone Shawn Johnson MD Primary Care Provider [phone] Allergies No known active allergies Medications amLODIPine-carlota [...] 03/06/2024 2:15 PM EST Consult Orthopedic Surgery [facility] [address] [phone] Satya Rodgers DPM Dermatophytosis of nail (Primary [...] Upcoming Encounters Date Type Department Care Team ([facility] st Contact Info) Description 06/05/2024 1:45 PM EDT Office Visit Orthopedic Surgery [facility] [address] [phone] Satya Rodgers DPM [address] [address] Health Maintenance Due Date Last Done Comments [...] patient's age to complete this topic Insurance [facility] Care Teams Artificial Fly Tier Relationship Specialty Start Date End Date Shawn Johnson MD [address] [place] [phone] PCP - General 12/23/23
--- OUTSIDE RECORDS SUMMARY | 2024-05-24 10:35 | XMS_ITS | Clinical Summary ---
Author Organization [facility] [place], Address [address] [place] [address] Phone Care Team Providers Care Escrow Officer Name Role Phone Edward Witt MD Primary Care Provider [phone] Allergies No known active allergies Medications amLODIPine-carlota [...] disease 06/23/2023 Type 2 diabetes mellitus 04/09/2022 Encounters Date Type Department Care Team Description 05/15/2024 2:00 PM EST Office Visit [facility] [place], [address] [place] [address] Torey Tom MD 05/11/2024 Documentation Only [facility] [place], [address] [address] Obey Emily from Last 3 Months Family History Medical History Relation Comments Cancer [...] Visit [facility] [place], [address] [place] [address] Torey Tom MD [address] [place] [address] Dr[place] [phone] Health Maintenance Due Date Last Done Comments [...] PM EST) Hemoglobin A1C 8.2(H) (4.0-5.6) % [facility] Comment: MONITORING: In known diabetic patients, hemoglobin A1c targets should be discussed with health care provider. DIAGNOSTIC USE: ??The [place] Diabetes Association (ADA) and the World Health [...] Supplement 1 Testing performed or reported by [facility], a Service of [facility], [address] [place] [address] Aaliyah Pastrana MD, Nursery Helper [facility]# [id number] Blood (Blood, Venous) 04/10/2022 3:03 PM EST 04/10/2022 3:04 PM EST us Torey Tom MD LAB BLOOD ORDERABLES Final Re sult [facility] from Last 3 Months or Most Recently Relevant to Health Maintenance [place] [address] [employer] Care Teams Escrow Officer Relationship Specialty Start Date End Date Edward Witt MD [address] [place] [address] PCP - General Internal Medicine 05/09/24
--- OUTSIDE RECORDS SUMMARY | 2024-05-24 10:35 | XMS_ITS | Encounter Summary ---
Author Organization [facility] [place], Address [address] [place] [address] Phone Care Team Providers Care Bone Char Puller Name Role Phone Edward Witt MD Primary Care Provider [phone] Encounter Details Date Type Department Care Team (Late st Contact Info) Description 03/24/2022 Documentation Only [facility] [address] [place] [phone] Shawn Johnson [place] [address] Social History Tobacco Use Types Packs/Day Years [...] Visit [facility] [address] [place] [address] Torey Tom MD [address] [place] [address] Dr. [place] [phone] documented as of this encounter Visit Diagnoses Not on filedocumented in this encounter Care Teams Bone Char Puller Relationship Specialty Start Date End Date Edward Witt MD [facility] [address] [place] [address] PCP - General Internal Medicine 05/09/24 documented as of this encounter
--- OUTSIDE RECORDS SUMMARY | 2024-05-24 10:35 | XMS_ITS | Encounter Summary ---
Author Organization [facility] Address [address] [place] [address] Phone Care Team Providers Care President/Gm Production & Live Experiences Name Role Phone Edward Witt MD Primary Care Provider [phone] Encounter Details Date Type Department Care Team (Late st Contact Info) Description 07/09/2023 Documentation Only [facility] [address] [place] [address] Emily Barnhart [address] [place] [address] Social History Tobacco Use Types [...] [facility] [address] [place] [address] Torey Tom MD [address] [place] [address] [place] [address] documented as of this encounter Visit Diagnoses Not on filedocumented in this encounter Care Teams President/Gm Production & Live Experiences Relationship Specialty Start Date End Date Edward Witt MD [address] [place] [address] PCP - General Internal Medicine 05/09/24 documented as of this encounter
--- OUTSIDE RECORDS SUMMARY | 2024-05-24 10:35 | XMS_ITS | Encounter Summary ---
Author Organization [facility] Address [address] [place] [address] Phone Care Team Providers Care Siphon Operator Name Role Phone Edward Witt MD Primary Care Provider [phone] Encounter Details Date Type Department Care Team (Late st Contact Info) Description 11/02/2023 Documentation Only [facility] [address] [place] [address] Emily Barnhart [address] [place] [address] Social History Tobacco Use Types [...] Visit [facility] [address] [place] [address] Torey Tom MD [address] [place] [address] [place] [address] documented as of this encounter Visit Diagnoses Not on filedocumented in this encounter Care Teams Siphon Operator Relationship Specialty Start Date End Date Edward Witt MD [address] [place] [address] PCP - General Internal Medicine 05/09/24 documented as of this encounter
--- OUTSIDE RECORDS SUMMARY | 2024-05-24 10:35 | XMS_ITS | Encounter Summary ---
Author Organization [facility] Address [address] [place] [address] Phone Care Team Providers Care Scenic Arts Supervisor Name Role Phone Edward Witt MD Primary Care Provider [phone] Encounter Details Date Type Department Care Team (Late st Contact Info) Description 11/02/2023 Documentation Only [facility] [address] [place] [address] Emily Barnhart [address] [place] [address] Social History Tobacco Use Types [...] Visit [facility] [address] [place] [address] Torey Tom MD [address] [place] [address] [place] [address] documented as of this encounter Visit Diagnoses Not on filedocumented in this encounter Care Teams Scenic Arts Supervisor Relationship Specialty Start Date End Date Edward Witt MD [address] [place] [address] PCP - General Internal Medicine 05/09/24 documented as of this encounter
--- OUTSIDE RECORDS SUMMARY | 2024-05-24 10:35 | XMS_ITS | Encounter Summary ---
Author Organization [facility] Address [address] [place] [address] Phone Care Team Providers Care Information Technology Manager Name Role Phone Edward Witt MD Primary Care Provider [phone] Encounter Details Date Type Department Care Team (Late st Contact Info) Description 05/11/2024 Documentation Only [facility] [address] [place] [address] Emily Barnhart [address] [place] [address] Social History Tobacco Use Types [...] Visit [facility] [address] [place] [address] Torey Tom MD [address] [place] [address] [place] [address] documented as of this encounter Visit Diagnoses Not on filedocumented in this encounter Care Teams Information Technology Manager Relationship Specialty Start Date End Date Edward Witt MD [address] [place] [address] PCP - General Internal Medicine 05/09/24 documented as of this encounter
--- OUTSIDE RECORDS SUMMARY | 2024-05-24 10:35 | XMS_ITS | Encounter Summary ---
Author Organization [facility] Address [address] [place] [address] Phone Care Team Providers Care Billboard Erector Name Role Phone Edward Witt MD Primary Care Provider [phone] Encounter Details Date Type Department Care Team (Late st Contact Info) Description 06/23/2023 Documentation Only [facility] [address] [place] [address] Emily Barnhart [address] [place] [address] Social History Tobacco Use Types [...] Visit [facility] [address] [place] [address] Torey Tom MD [address] [place] [address] [place] [address] documented as of this encounter Visit Diagnoses Not on filedocumented in this encounter Care Teams Billboard Erector Relationship Specialty Start Date End Date Edward Witt MD [address] [place] [address] PCP - General Internal Medicine 05/09/24 documented as of this encounter
== END 2024-05-24 10:28 | disposition home or self-care (01) ==
PROVIDERS: PCP Internal Medicine; Visit Provider Physician Assistant
DX: R10.13 Epigastric pain (principal)

== ENCOUNTER 2024-05-29 11:32 | Outpatient (AMB) | payer OTHER, SELFPAY ==
--- NOTE | 2024-05-29 11:45 | A.OFFVIS_ITS ---
Vital Signs 05/29/24 11:49 Height 5 ft 8 in Weight 250 lb BMI 38.0 Intake Visit Reasons: OV-Chronic left shoulder pain Intake Note: Brian 64 yr old male presents today for his left shoulder s/p left shoulder injection from 03/10/24. States injection did not help and he has not had his MRI done . States he would get scheduled with radiology and then they called to canceled his appointment a few times. Allergies No Known Allergies Allergy (Verified 05/29/24 11:49) HPI HPI OV-Chronic left shoulder pain: Details: 64-year-old gentleman returns to the office today for ongoing left shoulder pain. The plan at his last visit was to do further imaging studies of the left shoulder for further evaluation which has not been done yet. He states very minimal relief with the injection. [facility] Medical History Hypothyroid Glaucoma Chronic SI joint pain Lumbar radiculopathy Neuropathy BPH (benign prostatic hyperplasia) Elevated cholesterol GERD (gastroesophageal reflux disease) CKD (chronic kidney disease) Diabetes HTN (hypertension) Surgical History Hx of cataract surgery History of surgery on lower extremity History of shoulder surgery Family History Father Diabetes Hypertension Cancer Mother Hypertension Diabetes Social History Housing: House Patient Tobacco Use Status: Never used Tobacco e-Cigarette/Vaping Use: Never Used service: No Current occupational status: disabled Cognitive needs: No Hearing needs: No Vision needs: Yes Review of Systems Const All systems reviewed & are unremarkable except as noted in HPI and below Physical Exam Vital Signs: BMI result Body Mass Index 38.0 Extrem Other: Bilateral shoulder: Normal to inspection. Tenderness over the bicipital groove and along the deltoid region of the shoulder. Forward flexion to 175, external rotation to 90, internal rotation to S1. He has significant weakness with RTC strength testing on left when compared to the contralateral side. Negative Gayle and cross body abduction. NVI. ? Assessment & Plan Assessment & Plan (1) Arthritis of left glenohumeral joint: Code(s): M19.012 - Primary osteoarthritis, left shoulder Category: Medical (2) Arthritis of left acromioclavicular joint: Code(s): M19.012 - Primary osteoarthritis, left shoulder Category: Medical (3) Left shoulder pain: Code(s): M25.512 - Pain in left shoulder Category: Medical Plan Patient had minimal relief with left shoulder injection. CT scan of the left shoulder was ordered for further evaluation of the rotator cuff and surrounding structures. I will see him back once the scan is complete. Coding Level of Care Code Est Pt Level 3 (86939) Complex EM visit Add On G2211 Diagnoses Arthritis of left glenohumeral joint M19.012 Arthritis of left acromioclavicular joint M19.012 Left shoulder pain M25.512
[2024-05-29 11:49] VITALS: BMI 38.0
--- OUTSIDE RECORDS SUMMARY | 2024-05-29 13:11 | XMS_ITS | Encounter Summary ---
Author Organization [facility] Address [address] [place] [address] Phone Care Team Providers Care Oncology Physician Name Role Phone Edward Witt MD Primary Care Provider [phone] Encounter Details Date Type Department Care Team (Late st Contact Info) Description 11/02/2023 Documentation Only [facility] [address] [place] [address] Emily Barnhart [address] [place] [address] Social History Tobacco Use Types [...] Visit [facility] [address] [place] [address] Torey Tom MD [address] [place] [address] [place] [address] documented as of this encounter Visit Diagnoses Not on filedocumented in this encounter Care Teams Oncology Physician Relationship Specialty Start Date End Date Edward Witt MD [address] [place] [address] PCP - General Internal Medicine 05/09/24 documented as of this encounter
--- OUTSIDE RECORDS SUMMARY | 2024-05-29 13:11 | XMS_ITS | Encounter Summary ---
Author Organization [facility] Address [address] [place] [address] Phone Care Team Providers Care Founder / Ceo Name Role Phone Edward Witt MD Primary Care Provider [phone] Encounter Details Date Type Department Care Team (Late st Contact Info) Description 07/09/2023 Documentation Only [facility] [address] [place] [address] Emily Barnhart [address] [place] [address] Social History Tobacco Use Types [...] Visit [facility] [address] [place] [address] Torey Tom MD [address] [place] [address] [place] [address] documented as of this encounter Visit Diagnoses Not on filedocumented in this encounter Care Teams Founder / Ceo Relationship Specialty Start Date End Date Edward Witt MD [address] [place] [address] PCP - General Internal Medicine 05/09/24 documented as of this encounter
--- OUTSIDE RECORDS SUMMARY | 2024-05-29 13:11 | XMS_ITS | Encounter Summary ---
Author Organization [facility] Address [address] [place] [address] Phone Care Team Providers Care Tree Shear Operator Name Role Phone Edward Witt MD Primary Care Provider [phone] Encounter Details Date Type Department Care Team (Late st Contact Info) Description 05/11/2024 Documentation Only [facility] [address] [place] [address] Emily Barnhart [address] [place] [address] Social History Tobacco Use Types [...] Visit [facility] [address] [place] [address] Torey Tom MD [address] [place] [address] [place] [address] documented as of this encounter Visit Diagnoses Not on filedocumented in this encounter Care Teams Tree Shear Operator Relationship Specialty Start Date End Date Edward Witt MD [address] [place] [address] PCP - General Internal Medicine 05/09/24 documented as of this encounter
--- OUTSIDE RECORDS SUMMARY | 2024-05-29 13:12 | XMS_ITS | Encounter Summary ---
Author Organization [facility] Address [address] [place] [address] Phone Care Team Providers Care Archivist Name Role Phone Edward Witt MD Primary Care Provider [phone] Encounter Details Date Type Department Care Team (Late st Contact Info) Description 11/02/2023 Documentation Only [facility] [address] [place] [address] Emily Barnhart [address] [place] [address] Social History Tobacco Use Types [...] Visit [facility] [address] [place] [address] Torey Tom MD [address] [place] [address] [place] [address] documented as of this encounter Visit Diagnoses Not on filedocumented in this encounter Care Teams Archivist Relationship Specialty Start Date End Date Edward Witt MD [address] [place] [address] PCP - General Internal Medicine 05/09/24 documented as of this encounter
--- OUTSIDE RECORDS SUMMARY | 2024-05-29 13:12 | XMS_ITS | Clinical Summary ---
Author Organization [address] [place] [address] Address [address] [place] [address] Phone Care Team Providers Care Wax Engraver Name Role Phone Shawn Johnson MD Primary Care Provider [phone] Allergies No known active allergies Medications amLODIPine-carlota [...] 03/06/2024 2:15 PM EST Consult Orthopedic Surgery [facility] [address] [phone] Satya Rodgers DPM Dermatophytosis of nail (Primary [...] Upcoming Encounters Date Type Department Care Team ([facility] st Contact Info) Description 06/05/2024 1:45 PM EDT Office Visit Orthopedic Surgery [facility] [address] [phone] Satya Rodgers DPM [address] [address] Health Maintenance Due Date Last Done Comments [...] patient's age to complete this topic Insurance [facility] Care Teams Wax Engraver Relationship Specialty Start Date End Date Shawn Johnson MD [address] [place] [phone] PCP - General 12/23/23
--- OUTSIDE RECORDS SUMMARY | 2024-05-29 13:12 | XMS_ITS | Encounter Summary ---
Author Organization [facility] Address [address] [place] [address] Phone Care Team Providers Care Stem Sizer Name Role Phone Edward Witt MD Primary Care Provider [phone] Encounter Details Date Type Department Care Team (Late st Contact Info) Description 05/15/2024 2:00 PM EST Office Visit [facility] [address] [address] Torey Tom MD [address] [place] [address] Social History Tobacco Use Types [...] Office Visit [facility] [address] [place] [address] Torey Tom MD [address] [place] [address] documented as of this encounter Visit Diagnoses Not on filedocumented in this encounter Care Teams Stem Sizer Relationship Specialty Start Date End Date Edward Witt MD [address] [place], [place] PCP - General Internal Medicine 05/09/24 documented as of this encounter
--- OUTSIDE RECORDS SUMMARY | 2024-05-29 13:12 | XMS_ITS | Encounter Summary ---
Author Organization [facility] Address [address] [place] [address] Phone Care Team Providers Care Retail Merchandiser Name Role Phone Edward Witt MD Primary Care Provider Encounter Details Date Type Department Care Team (Late st Contact Info) Description 06/23/2023 Documentation Only [facility] [address] [place] [place] [address] Emily Barnhart [address] [place] [address] Social History Tobacco Use Types [...] Visit [facility] [address] [place] [place] [address] Torey Tom MD [address] [place] [address] [place] [address] documented as of this encounter Visit Diagnoses Not on filedocumented in this encounter Care Teams Retail Merchandiser Relationship Specialty Start Date End Date Edward Witt MD [address] [place] [address] PCP - General Internal Medicine 05/09/24 documented as of this encounter
--- OUTSIDE RECORDS SUMMARY | 2024-05-29 13:12 | XMS_ITS | Clinical Summary ---
Author Organization [facility] [place], Address [address] [place] [address] Phone Care Team Providers Care Lead Athlete Name Role Phone Edward Witt MD Primary Care Provider [phone] Allergies No known active allergies Medications amLODIPine-carlota [...] Visit [facility] [place], [address] [place] [address] Torey Tom MD 05/11/2024 Documentation Only [facility] [place], [address] [place] [address] Obey Emily from Last 3 [...] Visit [facility] [place], [address] [place] [address] Torey Tom MD [address] [place] [address] [place] [phone] Health Maintenance Due Date Last Done Comments [...] PM EST) Hemoglobin A1C 8.2(H) (4.0-5.6) % [facility] Comment: MONITORING: In known diabetic patients, hemoglobin A1c targets should be discussed with health care provider. DIAGNOSTIC USE: ??The [place] Diabetes Association (ADA) and the World Health [...] Supplement 1 Testing performed or reported by [facility], a Service of [facility], [address] [place] [address] Aaliyah Pastrana MD, [employer] [facility]# [id number] Blood (Blood, Venous) 04/10/2022 3:03 PM EST 04/10/2022 3:04 PM EST us Torey Tom MD LAB BLOOD ORDERABLES Final Re sult [facility] from Last 3 Months or Most Recently Relevant to Health Maintenance [place] [address] [place] [address] [employer] Care Teams Lead Athlete Relationship Specialty Start Date End Date Edward Witt MD [address] [place] [address] PCP - General Internal Medicine 05/09/24
--- OUTSIDE RECORDS SUMMARY | 2024-05-29 13:12 | XMS_ITS | Encounter Summary ---
Author Organization [facility] Address [address] [place] [address] Phone Care Team Providers Care Newspaper Press Operator Apprentice Name Role Phone Edward Witt MD Primary Care Provider [phone] Encounter Details Date Type Department Care Team (Late st Contact Info) Description 06/23/2023 Documentation Only [facility] [address] [place] [address] Emily Barnhart [address] [place] [address] Social History Tobacco Use Types [...] Visit [facility] [address] [place] [address] Torey Tom MD [address] [place] [address] [place] [address] documented as of this encounter Visit Diagnoses Not on filedocumented in this encounter Care Teams Newspaper Press Operator Apprentice Relationship Specialty Start Date End Date Edward Witt MD [address] [place] [address] PCP - General Internal Medicine 05/09/24 documented as of this encounter
--- OUTSIDE RECORDS SUMMARY | 2024-05-29 13:12 | XMS_ITS | Encounter Summary ---
Author Organization [facility] [place], Address [address] [place] [address] Phone Care Team Providers Care Coastal Tug Mate Name Role Phone Edward Witt MD Primary Care Provider [phone] Encounter Details Date Type Department Care Team (Late st Contact Info) Description 03/24/2022 Documentation Only [facility] [address] [place] [phone] Shawn Johnson MD [facility] [place] [address] Social History Tobacco Use Types Packs/Day Years [...] [facility] [address] [place] [address] Torey Tom MD [address] [place] [address] [place] [phone] documented as of this encounter Visit Diagnoses Not on filedocumented in this encounter Care Teams Coastal Tug Mate Relationship Specialty Start Date End Date Edward Witt MD [facility] [address] [place] [address] PCP - General Internal Medicine 05/09/24 documented as of this encounter
== END 2024-05-29 13:17 | disposition home or self-care (01) ==
PROVIDERS: PCP Internal Medicine; Visit Provider Physician Assistant
DX: M19.012 Primary osteoarthritis, left shoulder (principal); M25.512 Pain in left shoulder
CPT/HCPCS: 99213; G2211

== ENCOUNTER → 2024-05-29 11:32 | Outpatient (BNVA) | payer OTHER, SELFPAY | PROVIDERS: PCP Internal Medicine; Visit Provider Physician Assistant | DX: M19.012 Primary osteoarthritis, left shoulder (principal) | CPT/HCPCS: 99212 ==

== ENCOUNTER 2024-06-07 10:02 | Outpatient (AMB) | payer OTHER, SELFPAY ==
--- NOTE | 2024-06-07 10:05 | A.OFFPC_ITS ---
Vital Signs 06/07/24 10:06 Height 5 ft 8 in Weight 250 lb 8 oz BMI 38.1 BP 110/72 Blood Pressure Location Lt brachial Position Sitting Respiration 18 Pulse 88 Pulse Source Pulse Oximeter Temp 98 F Temp Source Oral Pulse Oximetry (%) 99 Oxygen Delivery Method Room Air Intake Visit Reasons: 1m follow up Allergies No Known Allergies Allergy (Verified 06/07/24 10:09) Medication List - Last Reconciled 06/07/24 by Shawn Johnson MD amlodipine-benazepril 10-20 mg 1 cap PO DAILY aspirin (Adult Low Dose Aspirin) 81 mg PO DAILY atorvastatin 10 mg PO BEDTIME bisacodyl (Dulcolax (bisacodyl)) 20 mg (4 x 5 mg) PO ONCE 1 day blood sugar diagnostic (FreeStyle Lite Strips) USE TO CHECK BLOOD SUGAR 3 TIMES DAILY: FASTING AND BEFORE MEALS cholecalciferol (vitamin D3) 25 mcg PO DAILY 90 days dorzolamide-timolol 22.3-6.8 mg/mL 1 drp ophthalmic (eye) BID dulaglutide (Trulicity) 4.5 mg (0.5 mL) subcut QWEEK 90 days flash glucose sensor (FreeStyle Ye 2 Sensor kit) Use with sensor to monitor blood sugar TID and as needed for s/s hypo/hyperglycemia fluticasone propionate 50 mcg/actuation (Allergy Relief (fluticasone)) 1 spray intranasal DAILY 30 days FreeStyle Ye 2 Xenia (flash glucose scanning reader) Use with sensor to monitor blood sugar TID and as needed for s/s hypo/hyperglycemia NS FreeStyle Lite Meter (blood-glucose meter) Use to check blood sugar 4 times daily, fasting and AC NS insulin aspart U-100 (Novolog FlexPen U-100 Insulin aspart) 15 units (0.15 mL) subcut TID 90 days [insulin pen needles 4 times a day] lamotrigine 100 mg PO BID lancets (FreeStyle Lancets) Use to check blood sugar QID, fasting and AC Lantus Solostar U-100 Insulin (insulin glargine) subcutaneously 2 times a day; 50 units at night and 20 units in the morning 90 days NS levothyroxine 50 mcg PO DAILY lidocaine 5% (Lidoderm) 1 patch topical DAILY PRN MDD remove after 12 hours metoclopramide HCl (Reglan) 10 mg PO Q6H 7 days oxycodone-acetaminophen 5-325 mg (Percocet) 1 tab PO Q8H PRN 30 days pantoprazole 20 mg PO DAILY polyethylene glycol 3350 (Miralax) 238 grams PO ONCE PRN 1 day Tobacco use date assessed: 06/07/24 Fall risk assessment: No Falls in past year Last assessed Fall Risk: 06/07/24 Dental Screening Dental Screen Date: 06/07/24 Did you have a dental visit in the last 12 months?: Yes Did you have a dental problem in the last 6 months where you did not have access to dental care?: No Was dental information given to patient?: Patient has dentist HPI 1m follow up HPI Details Follow-up appointment for medication refill - The patient is a 64-year-old male with H/o DM, diabetic nephropathy, Diabetic neuropathy, HTN, OA multiple joints, lumber HNP, stenosis, lexy shoulder pain, establish with pain managment [facility] seeing Nephrolgy Dr Molina nephrology for chronic kidney disease - The patient has a history of chronic s houlder pain unresponsive to previous treatments including injections and chiropractic interventions. - [facility] currently, the patient relies on Percocet for pain management, taking it 2 to 3 times a day. Patient Instructions - Continue taking Percocet every eight h ours as needed for shoulder pain relief. - Schedule the next appointment with me in one month. Review of Systems - General: No fever no chills - Neurological: No headaches no dizziness - Ear nose throat: No sore throat no hearing difficulty no ear pain - Cardiovascular: No syncope, no chest pain, no palpitations - Gastrointestinal: No nausea vomiting or diarrhea - Endocrine: No polyuria polydipsia no heat intolerance - Genitourinary: No dysuria , no blood in urine Physical Exam - General: No acute distress - HEENT: No acute findings - Neck: Supple - Respiratory system: Able to talk in f ull sentences, no audible wheeze - cardiovascular: S1-S2 regular in rat e and rhythm - Gastrointestinal: No pain - Extremities: No new findings - SKIRT TRIMMER: Alert awake oriented x3 motor se nsory intact - Skin: Normal turgor [facility] Medical History Hypothyroid Glaucoma Chronic SI joint pain Lumbar radiculopathy Neuropathy BPH (benign prostatic hyperplasia) Elevated cholesterol GERD (gastroesophageal reflux disease) CKD (chronic kidney disease) Diabetes HTN (hypertension) Surgical History Hx of cataract surgery History of surgery on lower extremity History of shoulder surgery Family History Father Diabetes Hypertension Cancer Mother Hypertension Diabetes Social History Housing: House Patient Tobacco Use Status: Never used Tobacco e-Cigarette/Vaping Use: Never Used service: No Current occupational status: disabled Cognitive needs: No Hearing needs: No Vision needs: Yes Questionnaire Thrive Questionnaire Date Thrive assessed: 04/12/24 AUDIT C Alcohol Use Questionnaire (AUDIT-C) 1. How often do you have a drink containing alcohol?: Never 3. How often do you have six or more drinks on one occasion?: Never Total Score: 0 Score Reviewed/Action Taken: Yes AMINATA-7 AMB Questionnaire AMINATA-7 Date AMINATA - 7 assessed: 04/12/24 Source: Developed by Drs. Josiah Bailey, Gema Zimmerman, Brian Jo and colleagues, with an educational lovely from [employer]. Physical exam (Primary Care) Vital Signs: Last Vital Signs Temp 98 F 06/07/24 10:06 Pulse 88 06/07/24 10:06 Resp 18 06/07/24 10:06 BP 110/72 06/07/24 10:06 Pulse Ox 99 06/07/24 10:06 Oxygen Delivery Method Room Air 06/07/24 10:06 BMI result Body Mass Index 38.1 Tobacco/Smoking Status: Tobacco use Status Tobacco use date assessed 06/07/24 06/07/24 10:11 Patient Tobacco Use Status Never used Tobacco 06/07/24 10:08 e-Cigarette/Vaping Use Never Used 06/07/24 10:08 Thrive Assessment: Date of Thrive Assessment Date Thrive assessed 04/12/24 06/07/24 10:08 Coding Level of Care Code Est Pt Level 3 (05731) Diagnoses Left lumbar radiculitis M54.16 Sacroiliac joint dysfunction of left side M53.3 Narcotic dependence F11.20 Assessment & Plan Assessment & Plan (1) Left lumbar radiculitis: Code(s): M54.16 - Radiculopathy, lumbar region Category: Medical (2) Sacroiliac joint dysfunction of left side: Code(s): M53.3 - Sacrococcygeal disorders, not elsewhere classified Category: Medical (3) Narcotic dependence: Code(s): F11.20 - Opioid dependence, uncomplicated Category: Medical Plan Follow-up appointment for medication refill - The patient is a 64-year-old male with H/o DM, diabetic nephropathy, Diabetic neuropathy, HTN, OA multiple joints, lumber HNP, stenosis, lexy shoulder pain, establish with pain managment [facility], seeing Nephrolgy Dr Molina nephrology for chronic kidney disease - The patient has a history of chronic shoulder pain unresponsive to previous treatments including injections and chiropractic interventions. - Severe pain episodes have led to emergency care; currently, the patient relies on Percocet for pain management, taking it 2 to 3 times a day. Patient Instructions - Continue taking Percocet every eight hours as needed for shoulder pain relief. - Schedule the next appointment with me in one month. Medications: Refilled oxycodone-acetaminophen 5-325 mg (Percocet) Partial Fill upon patient request. 1 tab PO Q8H 30 days PRN 60 tabs 0RF pain M13.0 - Polyarthritis, unspecified, M25.511 - Pain in right shoulder, M47.816 - Spondylosis without myelopathy or radiculopathy, lumbar region cholecalciferol (vitamin D3) 25 mcg PO DAILY 90 days 90 caps 1RF
[2024-06-07 10:06] VITALS: BP 110/72; PULSE 88; RESP 18; TEMP 36.6; O2SAT 99; BMI 38.1
--- OUTSIDE RECORDS SUMMARY | 2024-06-07 11:35 | XMS_ITS | Encounter Summary ---
Author Organization [facility] Address [address] [place] [address] Phone Care Team Providers Care Marine Services Technician Name Role Phone Edward Witt MD Primary Care Provider [phone] Encounter Details Date Type Department Care Team (Late st Contact Info) Description 07/09/2023 Documentation Only [facility] [address] [place] [address] Emily Barnhart [address] [place] [address] Social History Tobacco Use Types [...] Visit [facility] [address] [place] [address] Torey Tom MD [address] [place] [address] [place] [address] documented as of this encounter Visit Diagnoses Not on filedocumented in this encounter Care Teams Marine Services Technician Relationship Specialty Start Date End Date Edward Witt MD [address] [place] [address] PCP - General Internal Medicine 05/09/24 documented as of this encounter
--- OUTSIDE RECORDS SUMMARY | 2024-06-07 11:35 | XMS_ITS | Encounter Summary ---
Author Organization [facility] Address [address] [place] [address] Phone Care Team Providers Care Transportation Operations Manager Name Role Phone Edward Witt MD Primary Care Provider [phone] Encounter Details Date Type Department Care Team (Late st Contact Info) Description 11/02/2023 Documentation Only [facility] [address] [place] [address] Emily Barnhart [address] [place] [address] Social History Tobacco Use Types [...] [facility] [address] [place] [address] Torey Tom MD [address] [place] [address] [place] [address] documented as of this encounter Visit Diagnoses Not on filedocumented in this encounter Care Teams Transportation Operations Manager Relationship Specialty Start Date End Date Edward Witt MD [address] [place] [address] PCP - General Internal Medicine 05/09/24 documented as of this encounter
--- OUTSIDE RECORDS SUMMARY | 2024-06-07 11:36 | XMS_ITS | Encounter Summary ---
Author Organization [facility] [place] [facility], Address [address] [place] [address] Phone Care Team Providers Care Workers Compensation Consultant Name Role Phone Edward Witt MD Primary Care Provider [phone] Encounter Details Date Type Department Care Team (Late st Contact Info) Description 03/24/2022 Documentation Only [facility] [address] [place] [phone] Shawn oJhnson MD [facility] [place] [address] Social History Tobacco Use Types Packs/Day Years [...] [facility] [address] [place] [address] Torey Tom MD [address] [place] [address] [place] [phone] documented as of this encounter Visit Diagnoses Not on filedocumented in this encounter Care Teams Workers Compensation Consultant Relationship Specialty Start Date End Date Edward Witt MD [facility] [address] [place] [address] PCP - General Internal Medicine 05/09/24 documented as of this encounter
--- OUTSIDE RECORDS SUMMARY | 2024-06-07 11:36 | XMS_ITS | Encounter Summary ---
Author Organization [facility] Address [address] [place] [address] Phone Care Team Providers Care Medical Records Tech Name Role Phone Edward Witt MD Primary Care Provider [phone] Encounter Details Date Type Department Care Team (Late st Contact Info) Description 05/15/2024 2:00 PM EST Office Visit [facility] [address] [place] [address] Torey Tom MD [address] [place] [address] Social History Tobacco Use Types [...] Office Visit [facility] [address] [place] [address] Torey Tom MD [address] [place] [address] documented as of this encounter Visit Diagnoses Not on filedocumented in this encounter Care Teams Medical Records Tech Relationship Specialty Start Date End Date Edwrad Witt MD [address] [place], [place] PCP - General Internal Medicine 05/09/24 documented as of this encounter
--- OUTSIDE RECORDS SUMMARY | 2024-06-07 11:36 | XMS_ITS | Encounter Summary ---
Author Organization [facility] Address [address] [place] [address] Phone Care Team Providers Care Licensed Psychiatric Technician Name Role Phone Edward Witt MD Primary Care Provider [phone] Encounter Details Date Type Department Care Team (Late st Contact Info) Description 06/23/2023 Documentation Only [facility] [address] [place] [address] Emily Barnhart [address] [place] [address] Social History Tobacco Use Types [...] Visit [facility] [address] [place] [address] Torey Tom MD [address] [place] [address] [place] [address] documented as of this encounter Visit Diagnoses Not on filedocumented in this encounter Care Teams Licensed Psychiatric Technician Relationship Specialty Start Date End Date Edward Witt MD [address] [place] [address] PCP - General Internal Medicine 05/09/24 documented as of this encounter
--- OUTSIDE RECORDS SUMMARY | 2024-06-07 11:36 | XMS_ITS | Encounter Summary ---
Author Organization [facility] Address [address] [place] [address] Phone Care Team Providers Care Community Placement Worker Name Role Phone Edward Witt MD Primary Care Provider [phone] Encounter Details Date Type Department Care Team (Late st Contact Info) Description 05/11/2024 Documentation Only [facility] [address] [place] [address] Emily Barnhart [address] [place] [address] Social History Tobacco Use Types [...] Visit [facility] [address] [place] [address] Torey Tom MD [address] [place] [address] [place] [address] documented as of this encounter Visit Diagnoses Not on filedocumented in this encounter Care Teams Community Placement Worker Relationship Specialty Start Date End Date Edward Witt MD [address] [place] [address] PCP - General Internal Medicine 05/09/24 documented as of this encounter
--- OUTSIDE RECORDS SUMMARY | 2024-06-07 11:36 | XMS_ITS | Clinical Summary ---
Author Organization [address] [place] [address] Address [address] [place] [address] Phone Care Team Providers Care Jinrikisha Driver Name Role Phone Shawn Johnson MD Primary Care Provider [phone] Allergies No known active allergies Medications amLODIPine-carlota [...] mouth 1 (one) time each day. Active ammonium lactate (AmLactin) 12 % lotion Apply topically if needed for dry skin. 400 g 5 06/06/19 26 Active Active Problems Problem Noted Date Diagnosed Date Hypothyroid 03/03/2024 Glaucoma 03/03/2024 Chronic SI joint pain 03/03/2024 Lumbar radiculopathy 03/03/2024 Neuropathy 03/03/2024 BPH (benign prostatic hyperplasia) 03/03/2024 Elevated cholesterol 03/03/2024 GERD (gastroesophageal reflux disease) CKD (chronic kidney disease) 03/03/2024 Type 2 diabetes mellitus 03/03/2024 HTN (hypertension) 03/03/2024 Encounters Date Type Department Care Team Description 06/05/2024 1:45 PM EDT Office Visit Orthopedic Surgery [place] [address] [address] Satya Rodgers, DPNickolas Dermatophytosis of nail (Primary Dx); Type II diabetes mellitus with peripheral circulatory disorder (CMS/HCC); Diabetic mononeuropathy simplex (CMS/HCC); Difficulty walking; Tinea pedis of both feet from Last 3 Months Social History Tobacco [...] Upcoming Encounters Date Type Department Care Team ([facility] st Contact Info) Description 09/05/2024 1:00 PM EDT Office Visit Orthopedic Surgery [facility] [address] [phone] Jose Lloyd, TIFFANIE [address] [address] Health Maintenance Due Date Last Done Comments [...] patient's age to complete this topic Insurance [facility] Care Teams Jinrikisha Driver Relationship Specialty Start Date End Date Shawn Johnson MD [address] [place] [address] PCP - General 12/23/23
--- OUTSIDE RECORDS SUMMARY | 2024-06-07 11:36 | XMS_ITS | Encounter Summary ---
Author Organization [facility] Address [address] [place] [address] Phone Care Team Providers Care Tubing Machine Operator Name Role Phone Edward Witt MD Primary Care Provider [phone] Encounter Details Date Type Department Care Team (Late st Contact Info) Description 11/02/2023 Documentation Only [facility] [address] [place] [address] Emily Barnhart [address] [place] [address] Social History Tobacco Use Types [...] Visit [facility] [address] [place] [address] Torey Tom MD [address] [place] [address] [place] [address] documented as of this encounter Visit Diagnoses Not on filedocumented in this encounter Care Teams Tubing Machine Operator Relationship Specialty Start Date End Date Edward Witt MD [address] [place] [address] PCP - General Internal Medicine 05/09/24 documented as of this encounter
--- OUTSIDE RECORDS SUMMARY | 2024-06-07 11:36 | XMS_ITS | Clinical Summary ---
Author Organization [facility] [place], Address [address] [place] [place] [address] Phone Care Team Providers Care Compensation And Hris Analyst Name Role Phone Edward Witt MD Primary Care Provider [phone] Allergies No known active allergies Medications amLODIPine-carlota [...] Visit [facility] [place], [address] [place] [address] Torey Tom MD 05/11/2024 Documentation Only [facility] [place], [address] [place] [address] Obey Emily from Last 3 [...] Visit [facility] [place], [address] [place] [address] Torey Tom MD [address] [place] [address] [place] [phone] Health Maintenance Due Date Last Done Comments [...] PM EST) Hemoglobin A1C 8.2(H) (4.0-5.6) % [facility] Comment: MONITORING: In known diabetic patients, hemoglobin A1c targets should be discussed with health care provider. DIAGNOSTIC USE: ??The [place] Diabetes Association (ADA) and the World Health [...] Supplement 1 Testing performed or reported by [facility], a Service of [facility], [address] [place] [address] Aaliyah Pastrana MD, Check Grader [facility]# [id number] Blood (Blood, Venous) 04/10/2022 3:03 PM EST 04/10/2022 3:04 PM EST us Torey Tom MD LAB BLOOD ORDERABLES Final Re sult [facility] from Last 3 Months or Most Recently Relevant to Health Maintenance [place] [address] [place] [address] Care Teams Compensation And Hris Analyst Relationship Specialty Start Date End Date Edward Witt MD [address] [place] [address] PCP - General Internal Medicine 05/09/24
--- OUTSIDE RECORDS SUMMARY | 2024-06-07 11:36 | XMS_ITS | Encounter Summary ---
Author Organization [facility] Address [address] [place] [address] Phone Care Team Providers Care Loan Assistant Name Role Phone Edward Witt MD Primary Care Provider [phone] Encounter Details Date Type Department Care Team (Late st Contact Info) Description 06/23/2023 Documentation Only [facility] [address] [place] [address] Emily Barnhart [address] [place] [address] Social History Tobacco Use Types [...] Visit [facility] [address] [place] [address] Troey Tom MD [address] [place] [address] [place] [address] documented as of this encounter Visit Diagnoses Not on filedocumented in this encounter Care Teams Loan Assistant Relationship Specialty Start Date End Date Edward Witt MD [address] [place] [address] PCP - General Internal Medicine 05/09/24 documented as of this encounter
--- OUTSIDE RECORDS SUMMARY | 2024-06-07 11:36 | XMS_ITS | Encounter Summary ---
Author Organization [facility] Address [address] [place] [address] Care Team Providers Care Mannequin Maker Name Role Phone Shawn Johnson MD Primary Care Provider [phone] Encounter Details Date Type Department Care Team (Late st Contact Info) Description 06/05/2024 1:45 PM EDT Office Visit Orthopedic Surgery - [place] [address] [phone] Satya Rodgers DPM [address] [phone] Dermatophytosis of nail (Primary Dx); Type II diabetes mellitus with peripheral circulatory disorder (CMS/HCC); Diabetic mononeuropathy simplex (CMS/HCC); Difficulty walking; Tinea pedis of both feet Social History Tobacco Use Types Packs/Day Years Used Date Smoking Tobacco: Never Assessed Sex and Gender Information Value Date Recorded Sex Assigned at Not on file Legal Sex Male 3:11 PM EST Gender Identity Not on file Sexual Orientation Not on file documented as of this encounter Ordered Prescriptions Prescription Sig Dispense Quantity Refills Last Filled Start Date End Date ammonium lactate (AmLactin) 12 % lotion Apply topically if needed for dry skin. 400 g 06/05/2024 documented in this encounter Progress Notes * Satya Rodgers DPM - 06/05/2024 1:45 PM EDT Last PCP visit:Referring MD 12/22/2023 Dr. Shawn Johnson MD S: Presents today for evaluation feet notes that he is a type II diabetic suffering from chronic numbing burning tingling chronic thickened fungal nails and skin is itchy achy and bothersome with numbing tingling at night pain discomfort to 5 out of 10 on a visual analog scale he reports getting worsening itchiness and dryness of his skin reports that his skin is flaky itchy irritating worse in his heels he physic the skin is flaking and cracking he reports he has been using clotrimazole topicallywould like to know if he can try different topical medication ROS: GENERAL: Pt denies nausea, fever, vomiting, chills, or shortness of breath. Pt in NAD. CARDIOLOGY: pt denies chest pain, palpitations LUNGS: pt denies shortness of breath MUSCULOSKELETAL: See HPI, otherwise no joint pain or swelling, back pain, or muscle pain. SKIN: see HPI, otherwise no lesions, rash or itching NEURO: No persistent headache, weakness or numbness The remainder of the review of systems is noncontributory PAST MEDICAL HISTORY: Patient Active Problem List Diagnosis Hypothyroid Glaucoma Chronic SI joint pain Lumbar radiculopathy Neuropathy BPH (benign prostatic hyperplasia) Elevated cholesterol GERD (gastroesophageal reflux disease) CKD (chronic kidney disease) Type 2 diabetes mellitus ([facility]) HTN (hypertension) SOCIAL HISTORY: Social History Tobacco Use Smoking status: Not on file Smokeless tobacco: Not on file Substance Use Topics Alcohol use: Not on file ACTIVE MEDICATIONS: Outpatient Medications Marked as Taking for the 06/05/24 encounter (Office Visit) with Satya Espino DPM Medication Sig Dispense Refill amLODIPine-benazepril (LOTREL) 10-20 mg per capsule Take 1 capsule by mouth 1 (one) time each day. aspirin 81 mg chewable tablet Chew 1 tablet (81 mg total) 1 (one) time each day. atorvastatin (LIPITOR) 10 mg tablet Take 1 tablet (10 mg total) by mouth at bedtime. bisacodyL (DULCOLAX) 5 mg EC tablet Take 1 tablet (5 mg total) by mouth 1 (one) time each day if needed for constipation. Do not crush, chew, or split. cholecalciferol (VITAMIN D-3) 25 mcg (1,000 unit) tablet Take 1 tablet (1,000 Units total) by mouth1 (one) time each day. dulaglutide (Trulicity) 4.5 mg/0.5 mL pen injector injection Inject 0.5 mL (4.5 mg total) under theskin every 7 (seven) days. lamoTRIgine (LaMICtal XR) 100 mg tablet extended release 24hr 24 hr tablet Take 1 tablet (100 mg total) by mouth 1 (one) time each day. levothyroxine (SYNTHROID, LEVOTHROID) 50 mcg tablet Take 1 tablet (50 mcg total) by mouth 1 (one) time each day before breakfast. metoclopramide (REGLAN) 10 mg tablet Take 1 tablet (10 mg total) by mouth. oxyCODONE-acetaminophen (PERCOCET) 5-325 mg per tablet Take 1 tablet by mouth. pantoprazole (PROTONIX) 20 mg EC tablet Take 1 tablet (20 mg total) by mouth 1 (one) time each day before breakfast. Do not crush, chew, or split. ALLERGIES: No Known Allergies PHYSICAL EXAM: There were no vitals taken for this visit. PODIATRIC EXAMINATION: GENERAL: Patient appears well nourished, with NAD. VASCULAR: Dorsalis pedis pulses are 1/4 bilaterally and Posterior tibial pulses are 1/4 bilaterally. Capillary filling time within normal limits the digits. No pallor on elevation or rubor on dependency. Positive hair growth. No varicosities. Denies rest pain or claudication pain. NEUROLOGICAL: Sharp/dull sensation , protective sensation 5/10 with 5.07 semmes brooks bilaterally, vibratory sensation with tuning fork intact to the tibial tuberosity. ORTHOPEDIC: Good muscle strength 5/5 of all flexors and extensors. Dorsi flexion of ankle ,10 degrees, plantar flexion WNL. No muscle atrophy. DERMATOLOGICAL:. Toenails: Left Toenail(s) 1-5: Crumbling upon debridement, subungual debris, discoloration, dystrophy, elongation, mycotic appearance, onychomycosis, pain and thickening. Right Toenail(s) 1-5: Crumbling upon debridement, subungual debris, discoloration, dystrophy, elongation, mycotic appearance, onychomycosis, pain and thickening. Annular scaling bilateral feet moccasin distribution Skin thinning texture shiny appearance diffuse hyperpigmentation bilaterally pedal hair decreased BIOMECHANICS: Ankle ROM WNL, STJ ROM wnl, MTJ ROM wnl, 1st MPJ ROM wnl. IMAGING: IMPRESSION: 1. Dermatophytosis of nail 2. Type II diabetes mellitus with peripheral circulatory disorder (CMS/HCC) 3. Diabetic mononeuropathy simplex (CMS/HCC) 4. Difficulty walking 5. Pain in toe of right foot 6. Tinea pedis of both feet 7. Pain in toe of left foot PLAN: Pt was seen and examined, history reviewed. Clotrimazole continue with for nails and skin both feet Ammonium lactate prescribed for skin softener Discussed with patient regarding proper glucose control, exercise, and diet. Explained to patient proper shoe gear, and importance of daily foot checks. I reviewed neuropathy and why it occurs in diabetics. I educated the patient on proper blood sugar control and the importance of an HgBA1c of less than 7.0%. I reviewed the signs and symptoms of neuropathy with the patient Pt to return for another evaluation in 3 months. Satya Rodgers DPM documented in this encounter Plan of Treatment Upcoming Encounters Date Type Department Care Team (Late st Contact Info) Description 09/05/2024 1:00 PM EDT Office Visit Orthopedic Surgery - [place] [phone] [phone] Jose Lloyd DPM [address] [phone] documented as of this encounter Visit Diagnoses Diagnosis Dermatophytosis of nail- Primary Type II diabetes mellitus with peripheral circulatory disorder (CMS/HCC) Type II or unspecified type diabetes mellitus with peripheral circulatory disorders, not stated as uncontrolled Diabetic mononeuropathy simplex ([facility]/HCC) Type II or unspecified type diabetes mellitus with neurological manifestations, not stated as uncontrolled Difficulty walking Difficulty in walking Tinea pedis of both feet documented in this encounter Care Teams Mannequin Maker Relationship Specialty Start Date End Date Shawn Johnson MD [address] [place] [phone] PCP - General 12/23/23 documented as of this encounter
== END 2024-06-07 10:23 | disposition home or self-care (01) ==
LOC: HO.HMCC 10:03
PROVIDERS: PCP Internal Medicine; Visit Provider Internal Medicine
DX: M54.16 Radiculopathy, lumbar region (principal); M53.3 Sacrococcygeal disorders, not elsewhere classified; F11.20 Opioid dependence, uncomplicated

== ENCOUNTER → 2024-06-07 10:02 | Outpatient (BNVA) | payer OTHER, SELFPAY | PROVIDERS: PCP Internal Medicine; Visit Provider Internal Medicine | DX: M54.16 Radiculopathy, lumbar region (principal); M53.3 Sacrococcygeal disorders, not elsewhere classified; F11.20 Opioid dependence, uncomplicated | CPT/HCPCS: 99212 ==

== ENCOUNTER 2024-06-13 06:05 | Outpatient (REF) | payer OTHER, SELFPAY ==
--- NOTE | ~2024-06-13 | FL_ITS ---
EXAMINATION: XR FLUOROSCOPY WITH IMAGES CLINICAL INFORMATION: Left shoulder pain, pain management injection. COMPARISON: 04/10/2024. TECHNIQUE: Fluoroscopy provided to: Dr. Valderrama Fluoroscopy time: 0.2 minutes DAP: 0.0951 mGycm2 Images: 3 FINDINGS: 3 spot images obtained during intra-articular left shoulder joint injection, and left AC joint injection for pain management. Please refer to the full procedure report for details. FL/FL guidance in treatment room IMPRESSION: Fluoroscopic guidance. Electronically signed by: Steven Gray MD 06/14/2024 02:18 PM EDT
== END 2024-06-13 06:06 | disposition home or self-care (01) ==
LOC: CF 06:05
PROVIDERS: Visit Provider Anesthesiology
DX: M25.512 Pain in left shoulder (principal); M19.012 Primary osteoarthritis, left shoulder
CPT/HCPCS: 20605; 20610; J2003; J2795; J3301; Q9967

== ENCOUNTER 2024-06-13 07:15 | Outpatient (AMB) | payer OTHER, SELFPAY ==
--- NOTE | 2024-06-13 07:38 | MHC.OFFVIS ---
Vital Signs 06/13/24 07:54 06/13/24 07:55 BP 140/72 H 148/71 H Blood Pressure Location Lt brachial Lt brachial Position Sitting Sitting Pulse 85 84 Pulse Source Pulse Oximeter Pulse Oximeter Pulse Oximetry (%) 99 99 Oxygen Delivery Method Room Air Room Air Comment pre-procedure post-procedure Intake Visit Reasons: LT GLENOHUMERAL & ACROMIOCLAVICULAR INJECTIONS Allergies No Known Allergies Allergy (Verified 06/07/24 10:09) PFSH Medical History Hypothyroid Glaucoma Chronic SI joint pain Lumbar radiculopathy Neuropathy BPH (benign prostatic hyperplasia) Elevated cholesterol GERD (gastroesophageal reflux disease) CKD (chronic kidney disease) Diabetes HTN (hypertension) Surgical History Hx of cataract surgery History of surgery on lower extremity History of shoulder surgery Family History Father Diabetes Hypertension Cancer Mother Hypertension Diabetes Social History Housing: House Patient Tobacco Use Status: Never used Tobacco e-Cigarette/Vaping Use: Never Used service: No Current occupational status: disabled Cognitive needs: No Hearing needs: No Vision needs: Yes Physical Exam Vital Signs: Last Vital Signs Pulse 85 06/13/24 07:54 BP 140/72 H 06/13/24 07:54 Pulse Ox 99 06/13/24 07:54 Oxygen Delivery Method Room Air 06/13/24 07:54 Assessment & Plan Assessment & Plan (1) Left shoulder pain: Code(s): M25.512 - Pain in left shoulder Category: Medical (2) Arthritis of left acromioclavicular joint: Code(s): M19.012 - Primary osteoarthritis, left shoulder Category: Medical (3) Arthritis of left glenohumeral joint: Code(s): M19.012 - Primary osteoarthritis, left shoulder Category: Medical Plan Left acromioclavicular and left glenohumeral joint steroid injection. After explaining informed consent to the patient he was brought to the operating room and positioned 1st prone on the operating table with left shoulder exposed. Time-out was performed delineating name and date of of the patient and nature of the procedure. Left shoulder area and left upper back were prepped with ChloraPrep and draped with sterile utility towels. C-arm was brought over the operating field and picture of the left glenohumeral joint was demonstrated on the screen. In the projection of the anterior medial portion of the joint to the skin injection of the local anesthetic mixture of lidocaine 2% and ropivacaine 0.5% one-to-one was performed. After that 22 gauge 3-1/2 inch needle was inserted through the skin wheal and advanced to were the silhouette of the joint in tunnel vision fashion. When the needle gently contacted the head of the humeral bone it was deviated to the joint slightly more medially and injection of the contrast was performed. It demonstrated arthrogram. After that injection of the treatment medicine solution containing ropivacaine 0.5% mixed 4 cc with Kenalog 30 mg was performed into the joint. The needle was removed Band-Aid was applied. After that the patient was turned on the supine position and left acromioclavicular joint area was prepped with ChloraPrep and draped with sterile utility towels. C-arm was brought over the field and the acromioclavicular joint was demonstrated on the screen. 25 gauge 1-1/2 inch needle was used to insert into the joint into the intra-articular space and after that injection of the treatment medicine containing ropivacaine 0.5% 2 cc mixed with Kenalog 10 mg was performed. Upon completion of the injection needle was withdrawn Band-Aid was applied. Patient tolerated procedure well. Orders: Orders FL guidance in treatment room Today M25.512 - Pain in left shoulder Coding Level of Care Code Procedure Only Diagnoses Left shoulder pain M25.512 Arthritis of left acromioclavicular joint M19.012 Arthritis of left glenohumeral joint M19.012
[2024-06-13 07:54] VITALS: BP 140/72; PULSE 85; O2SAT 99
[2024-06-13 07:55] VITALS: BP 148/71; PULSE 84; O2SAT 99
== END 2024-06-13 07:56 | disposition home or self-care (01) ==
LOC: HO.PMCPRC 07:15
PROVIDERS: PCP Internal Medicine; Visit Provider Anesthesiology
DX: M25.512 Pain in left shoulder (principal); M19.012 Primary osteoarthritis, left shoulder
CPT/HCPCS: 20605; 20610; 77002

== ENCOUNTER 2024-07-06 09:30 | Day surgery (SDC) | payer OTHER, SELFPAY ==
[2024-07-04 13:46] VITALS: BMI 38.8
--- NOTE | 2024-07-05 08:44 | P.CONAN_ITS ---
Documented by User: Estefani Ortega NP 07/05/24 08:46 HPI - Anesthesia Eval Consult details Narrative: 64yo M for Upper Endoscopy and Colonoscopy Anesthesia Pre-Procedure Meds Is the patient on any of the following meds?: GLP1/DPP4 PMFSH Active Problems Active Problems: All Active Problems Abdominal pain (Acute) Narcotic dependence (Acute) Left shoulder pain (Acute) Arthritis of left acromioclavicular joint (Acute) Arthritis of left glenohumeral joint (Acute) Pain management contract agreement (Acute) Osteoarthritis involving multiple joints on both sides of body (Acute) Chronic narcotic dependence (Acute) Right shoulder tendinitis (Acute) Left shoulder tendonitis (Acute) Bilateral shoulder pain (Acute) Nasal congestion (Acute) Chronic pain of both ears (Acute) Pain in both feet (Acute) Varicose veins of right lower extremity with inflammation (Acute) PAD (peripheral artery disease) (Acute) Pain management (Acute) Hypertension, essential (Acute) Peripheral vascular disease (Acute) Polyarthritis (Acute) Blocked ear (Acute) Labile blood pressure (Acute) Nocturia (Acute) Screening PSA (prostate specific antigen) (Acute) BPH (benign prostatic hyperplasia) (Acute) Spondylosis of lumbar region without myelopathy or radiculopathy (Acute) Frequency of micturition (Acute) Colon cancer screening (Acute) Encounter for general adult medical examination with abnormal findings (Acute) Myofascial pain syndrome (Acute) Sacroiliac joint dysfunction of left side (Acute) Sacroiliac joint pain (Acute) Obesity (BMI 30-39.9) (Acute) Right shoulder pain (Acute) Lumbar spondylosis (Acute) Lumbar radiculopathy (Acute) Diabetic neuropathy (Acute) Pre-op evaluation (Acute) Hospital discharge follow-up (Acute) Paresthesia of both feet (Acute) Cataract (Acute) Glaucoma (Acute) Obesity due to excess calories (Acute) Chronic GERD (Acute) Lipid disorder (Acute) Left lumbar radiculitis (Acute) Diabetic neuropathy (Acute) Diabetic nephropathy (Acute) Insulin dependent type 1 diabetes mellitus (Acute) Establishing care with new doctor, encounter for (Acute) Diabetes (Acute) Past Medical History Medical History Hypothyroid Glaucoma Chronic SI joint pain Lumbar radiculopathy Neuropathy BPH (benign prostatic hyperplasia) Elevated cholesterol GERD (gastroesophageal reflux disease) CKD (chronic kidney disease) Diabetes HTN (hypertension) Family History Family History Father Diabetes Hypertension Cancer Mother Hypertension Diabetes Family history of problems with anesthesia: No Surgical History Surgical History Hx of cataract surgery History of surgery on lower extremity History of shoulder surgery History of Problems with Anesthesia: Yes Social History Social History Housing: House Patient Tobacco Use Status: Never used Tobacco e-Cigarette/Vaping Use: Never Used Advance Directives: No Advance Directives Information Provided: Yes service: No Current occupational status: disabled Cognitive needs: No Hearing needs: No Vision needs: Yes Meds Allergies Allergy/AdvReac Type Severity Reaction Status Date / Time No Known Allergies Allergy Verified 06/07/24 10:09 Home Medications ?Medication ?Instructions ?Recorded ?Confirmed ?Last Taken ?Type aspirin 81 mg tablet,delayed 81 mg PO DAILY 01/07/22 06/07/24 Unknown History release (Adult Low Dose Aspirin) Exam Height,Weight and Vital Signs: Height 5 ft 7 in Weight 112.491 kg Pertinent Lab Results Pertinent Lab Results: Laboratory Tests 05/10/24 12:19 WBC 8.1 Hgb 13.3 L Hct 40.3 L Plt Count 270 Sodium 138 Potassium 4.4 Chloride 110 H Carbon Dioxide 20 L BUN 18 H Creatinine 1.52 H Narrative Narrative: EKG 03/2024 Vent. Rate : 79 BPM Atrial Rate : 79 BPM P-R Int : 140 ms QRS Dur : 86 ms QT Int : 364 ms P-R-T Axes : 49 -6 -8 degrees QTcB Int : 417 ms Normal sinus rhythm Minimal voltage criteria for LVH, may be normal variant ( R in aVL ) Borderline ECG No previous ECGs available Assessment and Plan Assessment Anesthesia Assessment: Chart Reviewed Final Anesthetic Review Family History of Problems with Anesthesia: No History of Problems with Anesthesia: Yes Documented by User: Arcenio Zavala MD 07/06/24 12:54 PMF Active Problems Active Problems: iAll Active Problems Abdominal pain (Acute) Narcotic dependence (Acute) Left shoulder pain (Acute) Arthritis of left acromioclavicular joint (Acute) Arthritis of left glenohumeral joint (Acute) Pain management contract agreement (Acute) Osteoarthritis involving multiple joints on both sides of body (Acute) Chronic narcotic dependence (Acute) Right shoulder tendinitis (Acute) Left shoulder tendonitis (Acute) Bilateral shoulder pain (Acute) Nasal congestion (Acute) Chronic pain of both ears (Acute) Pain in both feet (Acute) Varicose veins of right lower extremity with inflammation (Acute) PAD (peripheral artery disease) (Acute) Pain management (Acute) Hypertension, essential (Acute) Peripheral vascular disease (Acute) Polyarthritis (Acute) Blocked ear (Acute) Labile blood pressure (Acute) Nocturia (Acute) Screening PSA (prostate specific antigen) (Acute) BPH (benign prostatic hyperplasia) (Acute) Spondylosis of lumbar region without myelopathy or radiculopathy (Acute) Frequency of micturition (Acute) Colon cancer screening (Acute) Encounter for general adult medical examination with abnormal findings (Acute) Myofascial pain syndrome (Acute) Sacroiliac joint dysfunction of left side (Acute) Sacroiliac joint pain (Acute) Obesity (BMI 30-39.9) (Acute) Right shoulder pain (Acute) Lumbar spondylosis (Acute) Lumbar radiculopathy (Acute) Diabetic neuropathy (Acute) Pre-op evaluation (Acute) Hospital discharge follow-up (Acute) Paresthesia of both feet (Acute) Cataract (Acute) Glaucoma (Acute) Obesity due to excess calories (Acute) Chronic GERD (Acute) Lipid disorder (Acute) Left lumbar radiculitis (Acute) Diabetic neuropathy (Acute) Diabetic nephropathy (Acute) Insulin dependent type 1 diabetes mellitus (Acute) Establishing care with new doctor, encounter for (Acute) Diabetes (Acute) Past Medical History Medical History Hypothyroid Glaucoma Chronic SI joint pain Lumbar radiculopathy Neuropathy BPH (benign prostatic hyperplasia) Elevated cholesterol GERD (gastroesophageal reflux disease) CKD (chronic kidney disease) Diabetes HTN (hypertension) Family History Family History Father Diabetes Hypertension Cancer Mother Hypertension Diabetes Surgical History Surgical History Hx of cataract surgery History of surgery on lower extremity History of shoulder surgery History of Problems with Anesthesia: No Social History Social History Housing: House Patient Tobacco Use Status: Never used Tobacco e-Cigarette/Vaping Use: Never Used Advance Directives: No Advance Directives Information Provided: Yes service: No Current occupational status: disabled Cognitive needs: No Hearing needs: No Vision needs: Yes Meds Allergies Allergy/AdvReac Type Severity Reaction Status Date / Time No Known Allergies Allergy Verified 06/07/24 10:09 Home Medications ?Medication ?Instructions ?Recorded ?Confirmed ?Last Taken ?Type aspirin 81 mg tablet,delayed 81 mg PO DAILY 01/07/22 06/07/24 Unknown History release (Adult Low Dose Aspirin) Exam Airway Mallampati Class: II TM Dist: <=3cm Neck ROM: Full Loose/Missing/Broken Teeth: Yes and Lower Heart: ok Lungs: ok Assessment and Plan Assessment Anesthesia Assessment: Anesthesia Plan Discussed Final Anesthetic Review History of Problems with Anesthesia: No NPO: No (Had a glass of OJ at 9am.) ASA Class: III Final Preanesthetic Review: No Changes in Pt Med Stat, Meds/Allgs Chart Revie wed, Consent Obtained/Reviewed and Anes Risks/Benef Reviewed Patient Risk: Intermediate Procedure Risk: Intermediate Anesthetic Plan Anesthetic Plan: Agree w/ Assess. and Plan and TIVA Disposition: Standard PACU
[2024-07-06] MEDS: Sodium Phosphate,Mono-Dibasic 133 ML ENEMA PR (10:11)
[2024-07-06 10:34] VITALS: BP 111/65; PULSE 84; RESP 20; TEMP 36.6; O2SAT 100
[2024-07-06] MEDS: Lactated Ringers 1,000 ML 100 ML IVCONT (10:38)
--- NOTE | 2024-07-06 12:30 | MHC.SHP ---
Pre-Procedural Eval Section A - 24 Hr Update-Section A only Date of Service: 07/06/24 Section B - Complete if H&P > 30 days Chief Complaint: Encounter for screening for malignant neoplasm of Relevant Family History (Specify if Yes): No Relevant Social History: None Present Medications: see Short Stay Collaborative assessment Medical History: Significant History (Hypothyroid Glaucoma Chronic SI joint pain Lumbar radiculopathy Neuropathy BPH (benign prostatic hyperplasia) Elevated cholesterol GERD (gastroesophageal reflux disease) CKD (chronic kidney disease) Diabetes HTN (hypertension)) History of Previous Operations: Relevant previous surgery/procedure and date(s) (Hx of cataract surgery History of surgery on lower extremity History of shoulder surgery) Allergies: Allergies Allergy/AdvReac Type Severity Reaction Status Date / Time No Known Allergies Allergy Verified 06/07/24 10:09 Review of Systems Sugical H&P ROS: Negative: Constitution, Cardiovascular, Respiratory, Neurological, Psychiatric, Hem-Onc, Allergic/Immunologic, Gastrointestinal, Genitourinary, Musculoskeletal, Integumentary, Endocrine and Eyes/Ears/Nose/Throat Exam Surgical H&P Exam: Normal: HEENT, Normal: Heart, Normal: Lungs, Normal: Extremities, Normal: Abdomen, Normal: Skin and Normal: Neurological Plan Diagnosis/Plan: Unchanged I have reviewed the history and physical and performed a pertinent physical examination on my patient. No changes have occurred unless specified. EGD for GERD -colo-screening Time Spent With Patient Time: Total time managing care of this patient today ____ minutes.
[2024-07-06 12:31] LABS: Glucose, Whole Blood 114 mg/dL (60-115)
[2024-07-06 13:31] LABS: Glucose, Whole Blood 81 mg/dL (60-115)
--- NOTE | 2024-07-06 14:03 | P.OPN-COLO_ITS ---
Colonoscopy Operative Note Operative Note Date of Service: 07/06/24 Narrative: Operative Information Procedure Description: EGD, Colonoscopy Indication: screening, GERD Anesthesia: MAC FLEXIBLE TRANSORAL UPPER GASTROINTESTINAL ENDOSCOPY AND COLONOSCOPY PROCEDURE NOTE UPPER ENDOSCOPY Consent: Indications for the procedure and potential complications of bleeding, perforation, reaction to medications and missed diagnosis were discussed with the patient and informed consent was obtained. Instrument: Olympus GIF H 190 J mid size upper endoscope Monitoring: Vital signs and clinical assessment, continuous EKG monitoring, Pulse oximetry, Carbon Dioxide monitoring and blood pressure monitoring were done throughout the procedure. Procedure: The patient was placed in the left lateral decubitis position and pre-procedure medications were administered and a bite block was placed. The endoscope was inserted into the mouth and advanced under direct vision to the third part of duodenum. A careful inspection was made as the upper endoscope was withdrawn including a retroflexed examination of the proximal stomach; Findings and interventions are described below. Findings: Larynx:normal Esophagus: GE junction at 40 cm, diaphragm hiatus at 40 cm, mild bogginess and erythema at GEJ, bx taken from here and distal esophagus Stomach: patchy erythema and granular mucosa. Biopsies were obtained. Grade 2 flap valve on retroflexed examination of the cardia. Duodenum: Normal bulb and descending duodenum, Intervention: Biopsies as noted above, COLONOSCOPY Instrument: Olympus variable stiffness pediatric scope 190L Colonoscopy Monitoring: Vital signs and clinical assessment, continuous EKG monitoring, Pulse oximetry, Carbon Dioxide monitoring and blood pressure monitoring were done throughout the procedure. Colon withdrawal time was 10 minutes. Procedure: The patient was placed in the left lateral decubitis position and pre-procedure medications were administered. After a digital rectal examination of the ano-rectum, the video colonoscope was inserted into the rectum and advanced through the colon to the cecum/TI. The colonoscope was slowly withdrawn in a retrograde panoramic fashion and the colon mucosa was carefully examined including a retroflexed view of the rectum. Findings and interventions are described below. Procedure Difficulty:moderate Findings: Terminal Ileum-normal Cecum: 4-5 mm sessile polyp removed with cold forceps right sided retroflexion- normal Ascending Colon: normal Transverse Colon -normal Descending Colon:normal Sigmoid Colon: normal Rectum: Retroflexion with small internal hemorrhoids, grade I Anorectum - normal Colon preparation: [place] Bowel Preparation Scale Right colon; 1-2 Transverse colon: 2 Left colon; 1-2 (0 = Unprepared colon segment with mucosa not seen due to solid stool that cannot be cleared. 1 = Portion of mucosa of the colon segment seen, but other areas of the colon segment not well seen due to staining, residual stool and/or opaque liquid. 2 = Minor amount of residual staining, small fragments of stool and/or opaque liquid, but mucosa of colon segment seen well. 3 = Entire mucosa of colon segment seen well with no residual staining, small fragments of stool or opaque liquid) Impression and Post Procedure Diagnosis: Endoscopy Findings: mild gastritis mild esophagitis Colonoscopy Findings: colon polyp internal hemorrhoids Plan: Await Pathology results Repeat Colonoscopy in 3 years due to polyp and some areas of fair prep or earlier if clinically indicated High fiber diet leaflet avoid straining at stool, epsom salts and sitz bath, anusol supps or cream Above findings were reviewed with the patient and relevant handouts were provided if indicated.
[2024-07-06 14:30] VITALS: BP 99/57; PULSE 82; RESP 18; TEMP 36.3; O2SAT 94
[2024-07-06 14:37] LABS: Glucose, Whole Blood 160 mg/dL (60-115)
[2024-07-06 14:45] VITALS: BP 115/73; PULSE 84; RESP 18; O2SAT 97
[2024-07-06 14:58] VITALS: BP 118/65; PULSE 78; RESP 18; TEMP 36.3; O2SAT 98
== END 2024-07-06 15:38 | disposition home or self-care (01) ==
PROVIDERS: PCP Internal Medicine; Visit Provider Internal Medicine Gastroenterology
PROC: (CPT 45380; principal; 2024-07-06 12:40)
DX: Z12.11 Encounter for screening for malignant neoplasm of colon (principal); K63.5 Polyp of colon; K64.0 First degree hemorrhoids; K21.9 Gastro-esophageal reflux disease without esophagitis; K29.50 Unspecified chronic gastritis without bleeding; K20.80 Other esophagitis without bleeding; K44.9 Diaphragmatic hernia without obstruction or gangrene; N40.0 Benign prostatic hyperplasia without lower urinary tract symptoms; E11.40 Type 2 diabetes mellitus with diabetic neuropathy, unspecified; E11.22 Type 2 diabetes mellitus with diabetic chronic kidney disease; I12.9 Hypertensive chronic kidney disease with stage 1 through stage 4 chronic kidney disease, or unspecified chronic kidney disease; N18.9 Chronic kidney disease, unspecified; E78.00 Pure hypercholesterolemia, unspecified; E03.9 Hypothyroidism, unspecified; H40.9 Unspecified glaucoma; Z79.4 Long term (current) use of insulin; Z79.85 Long-term (current) use of injectable non-insulin antidiabetic drugs; Z79.82 Long term (current) use of aspirin; Z79.899 Other long term (current) drug therapy; Z98.890 Other specified postprocedural states
CPT/HCPCS: 45380; 43239; 82947; 88305; 88313; 88342; J2003; J2704; J3010

== ENCOUNTER → 2024-07-06 09:30 | Outpatient (BNV) | payer OTHER, SELFPAY | PROVIDERS: PCP Internal Medicine; Visit Provider Internal Medicine Gastroenterology | DX: Z12.11 Encounter for screening for malignant neoplasm of colon (principal); K63.5 Polyp of colon; K64.0 First degree hemorrhoids; K21.00 Gastro-esophageal reflux disease with esophagitis, without bleeding; K29.70 Gastritis, unspecified, without bleeding | CPT/HCPCS: 43239; 45380 ==

== ENCOUNTER 2024-07-07 11:54 | Outpatient (AMB) | payer OTHER, SELFPAY ==
--- NOTE | 2024-07-07 12:03 | MHC.PC.OV ---
Vital Signs 07/07/24 12:06 Height 5 ft 7 in Weight 247 lb 2 oz BMI 38.7 BP 118/68 Blood Pressure Location Rt brachial Position Sitting Pulse 89 Pulse Source Pulse Oximeter Pulse Oximetry (%) 100 Oxygen Delivery Method Room Air Intake Visit Reasons: 1m follow up/Update PCP with insurance Allergies No Known Allergies Allergy (Verified 07/07/24 12:04) Medication List - Last Reconciled 07/07/24 by Shawn Johnson MD amlodipine-benazepril 10-20 mg 1 cap PO DAILY aspirin (Adult Low Dose Aspirin) 81 mg PO DAILY atorvastatin 10 mg PO BEDTIME bisacodyl (Dulcolax (bisacodyl)) 20 mg (4 x 5 mg) PO ONCE 1 day bisacodyl (Dulcolax (bisacodyl)) 20 mg (4 x 5 mg) PO ONCE 1 day blood sugar diagnostic (FreeStyle Lite Strips) USE TO CHECK BLOOD SUGAR 3 TIMES DAILY: FASTING AND BEFORE MEALS cholecalciferol (vitamin D3) 25 mcg PO DAILY 90 days dorzolamide-timolol 22.3-6.8 mg/mL 1 drp ophthalmic (eye) BID dulaglutide (Trulicity) 4.5 mg (0.5 mL) subcut QWEEK 90 days flash glucose sensor (FreeStyle Ye 2 Sensor kit) Use with sensor to monitor blood sugar TID and as needed for s/s hypo/hyperglycemia fluticasone propionate 50 mcg/actuation (Allergy Relief (fluticasone)) 1 spray intranasal DAILY 30 days FreeStyle Ye 2 [place] (flash glucose scanning reader) Use with sensor to monitor blood sugar TID and as needed for s/s hypo/hyperglycemia NS FreeStyle Lite Meter (blood-glucose meter) Use to check blood sugar 4 times daily, fasting and AC NS insulin aspart U-100 (Novolog FlexPen U-100 Insulin aspart) 15 units (0.15 mL) subcut TID 90 days [insulin pen needles 4 times a day] lamotrigine 100 mg PO BID lancets (FreeStyle Lancets) Use to check blood sugar QID, fasting and AC Lantus Solostar U-100 Insulin (insulin glargine) subcutaneously 2 times a day; 50 units at night and 20 units in the morning 90 days NS levothyroxine 50 mcg PO DAILY lidocaine 5% (Lidoderm) 1 patch topical DAILY PRN MDD remove after 12 hours metoclopramide HCl (Reglan) 10 mg PO Q6H 7 days oxycodone-acetaminophen 5-325 mg (Percocet) 1 tab PO Q8H PRN 30 days pantoprazole 20 mg PO DAILY polyethylene glycol 3350 (Miralax) 238 grams PO ONCE PRN 1 day polyethylene glycol 3350 (Miralax) 238 grams PO ONCE 1 day Tobacco use date assessed: 07/07/24 Fall risk assessment: No Falls in past year Last assessed Fall Risk: 07/26/24 Dental Screening Dental Screen Date: 07/07/24 Did you have a dental visit in the last 12 months?: No Did you have a dental problem in the last 6 months where you did not have access to dental care?: No Was dental information given to patient?: Patient declined HPI 1m follow up/Update PCP with insurance HPI Details History - The patient is a 64-year-old male presenting with routine follow-up for chronic conditions management. - The patient underwent a colonoscopy yesterday at [facility] and reported that the procedure was normal. The recommendation was to follow up in 3 years. - Diagnosed with Diabetes Mellitus, the patient monitors blood sugar levels regularly and requires insulin therapy. - Upcoming international travel in July to the [facility] [place] was discussed, extending from July 22 to August 21. - The patient manages chronic pain secondary to knee and shoulder osteoarthritis, with prescribed oxycodone for severe pain, taken every 8 hours. - The patient consistently adheres to a comprehensive medication regimen for conditions including hypertension, dyslipidemia, and hypothyroidism. Problem List - Diabetes Mellitus - Essential Hypertension - Dyslipidemia - Hypothyroidism - Knee and Shoulder Osteoarthritis - Chronic Pain Syndrome Patient Instructions - Remember to take all prescribed medications, including insulin and thyroid medications, with you during your travel. - Ensure an adequate supply of insulin needles and pain medication while abroad. - Keep your scheduled blood tests and follow-up appointments when you return. - Pay careful attention to your blood sugar levels; adjust as necessary based on symptoms and intake. - Maintain regular communication about any changes in symptoms with healthcare providers. Review of Systems - General: No fever no chills - Neurological: No headaches no dizziness - Ear nose throat: No sore throat no hearing difficulty no ear pain - Cardiovascular: No syncope, no chest pain, no palpitations - Gastrointestinal: No nausea vomiting or diarrhea - Endocrine: No polyuria polydipsia no heat intolerance - Genitourinary: No dysuria , no blood in urine Physical Exam - General: No acute distress - HEENT: No acute findings - Neck: Supple - Respiratory system: Able to talk in full sentences, no audible wheeze - Cardiovascular: S1-S2 regular in rate and rhythm - Gastrointestinal: No pain - Extremities: No new findings - PICK PULLING MACHINE TENDER: Alert awake oriented x3 motor sensory intact - Skin: Normal turgor [facility] Medical History Hypothyroid Glaucoma Chronic SI joint pain Lumbar radiculopathy Neuropathy BPH (benign prostatic hyperplasia) Elevated cholesterol GERD (gastroesophageal reflux disease) CKD (chronic kidney disease) Diabetes HTN (hypertension) Surgical History Hx of cataract surgery History of surgery on lower extremity History of shoulder surgery Family History Father Diabetes Hypertension Cancer Mother Hypertension Diabetes Social History Housing: House Patient Tobacco Use Status: Never used Tobacco e-Cigarette/Vaping Use: Never Used service: No Current occupational status: disabled Cognitive needs: No Hearing needs: No Vision needs: Yes Questionnaire PHQ-9 Over the last 2 weeks, how often have you been bothered by any of the following problems? 1. Little interest or pleasure in doing things: not at all 2. Feeling down, depressed, or hopeless: not at all 3. Trouble falling or staying asleep, or sleeping too much: not at all 4. Feeling tired or having little energy: not at all 5. Poor appetite or overeating: not at all 6. Feeling bad about yourself - or that you are a failure or have let yourself or your family down: not at all 7. Trouble concentrating on things, such as reading the newspaper or watching television: not at all 8. Moving or speaking so slowly that other people could have noticed. Or the opposite - being so fidgety or restless that you have been moving around a lot more than usual: not at all 9. Thoughts that you would be better off or of hurting yourself in some way: not at all Total score: 0 Depression Screening Interpretation: Negative Depression Screening Done: Yes [id number] - PHQ-9 Billing: Yes Source: Developed by Drs. Josiah Bailey, Brian Kinney and colleagues, with an educational lovely from [employer]. Thrive Questionnaire Date Thrive assessed: 07/07/24 I am a: Patient What is your living situation today?: I have a steady place to live Within the past 12 months, did the food you bought not last and you didn't have the money to get more?: Sometimes True Within the past 12 months, did you worry whether your food would run out before you got money to buy more?: Often true Do you have trouble paying for medicines?: No Do you have trouble getting transportation to medical appointments?: Yes Do you have trouble paying your heating and electricity bill?: Yes Do you have trouble taking care of your child, family member or friend?: No Do you have trouble with day-to-day activities such as bathing, preparing meals, shopping, managing finances, etc.?: No Are you currently unemployed and looking for a job?: I choose not to answer this question Are you interested in more education?: I choose not to answer this question Please select the resources that you would like help with: None Currently or been in a relationship where the following occur: No concerns reported THRIVE Score: 4 AUDIT C Alcohol Use Questionnaire (AUDIT-C) 1. How often do you have a drink containing alcohol?: Never 3. How often do you have six or more drinks on one occasion?: Never Total Score: 0 Score Reviewed/Action Taken: Yes AMINATA-7 AMB Questionnaire AMINATA-7 Date AMINATA - 7 assessed: 04/12/24 Source: Developed by Drs. Josiah Bailey, Brian Kinney and colleagues, with an educational lovely from [employer]. Physical exam (Primary Care) Vital Signs: Last Vital Signs Pulse 89 07/07/24 12:06 BP 118/68 07/07/24 12:06 Pulse Ox 100 07/07/24 12:06 Oxygen Delivery Method Room Air 07/07/24 12:06 BMI result Body Mass Index 38.7 Tobacco/Smoking Status: Tobacco use Status Tobacco use date assessed 07/07/24 07/07/24 12:10 Patient Tobacco Use Status Never used Tobacco 07/07/24 12:10 e-Cigarette/Vaping Use Never Used 07/07/24 12:10 PHQ-9: PHQ-9 Score PHQ-9: Total score 0 07/07/24 12:24 Depression Screening Interpretation: Negative Thrive Assessment: Date of Thrive Assessment Date Thrive assessed 07/07/24 07/07/24 12:10 Currently or been in a relationship where the following occur: No concerns reported Coding Level of Care Code Est Pt Level 4 (23655) Complex EM visit Add On G2211 Diagnoses 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 E10.21 Diabetes mellitus type: type 1 Diabetic polyneuropathy associated with type 1 diabetes mellitus E10.42 Diabetes mellitus complication detail: diabetic polyneuropathy Diabetes mellitus type: type 1 Insulin dependent diabetes mellitus type IA E10.9 Left lumbar radiculitis M54.16 Sacroiliac joint dysfunction of left side M53.3 Narcotic dependence F11.20 Lipid disorder E78.9 Class 2 severe obesity due to excess calories with serious comorbidity and body mass index (BMI) of 38.0 to 38.9 in adult E66.01; Z68.38 Obesity classification: adult class 2 (BMI 35 - 39.9) Serious obesity comorbidity presence: with serious comorbidity Body mass index: BMI 38.0-38.9 Hypertension, essential I10 Additional Codes PHQ-9 - 29609 - PHQ-9 Billing: Yes ([id number]) Assessment & Plan Assessment & Plan (1) Diabetic nephropathy: Code(s): E11.21 - Type 2 diabetes mellitus with diabetic nephropathy Category: Medical Qualifiers: Diabetes mellitus type: type 1 Qualified Code(s): E10.21 - Type 1 diabetes mellitus with diabetic nephropathy (2) Diabetic neuropathy: Code(s): E11.40 - Type 2 diabetes mellitus with diabetic neuropathy, unspecified Category: Medical Qualifiers: Diabetes mellitus complication detail: diabetic polyneuropathy Diabetes mellitus type: type 1 Qualified Code(s): E10.42 - Type 1 diabetes mellitus with diabetic polyneuropathy (3) Insulin dependent diabetes mellitus type IA: Code(s): E10.9 - Type 1 diabetes mellitus without complications Category: Medical (4) Left lumbar radiculitis: Code(s): M54.16 - Radiculopathy, lumbar region Category: Medical (5) Sacroiliac joint dysfunction of left side: Code(s): M53.3 - Sacrococcygeal disorders, not elsewhere classified Category: Medical (6) Narcotic dependence: Code(s): F11.20 - Opioid dependence, uncomplicated Category: Medical (7) Lipid disorder: Code(s): E78.9 - Disorder of lipoprotein metabolism, unspecified Category: Medical (8) Obesity due to excess calories: Code(s): E66.09 - Other obesity due to excess calories Category: Medical Qualifiers: Obesity classification: adult class 2 (BMI 35 - 39.9) Serious obesity comorbidity presence: with serious comorbidity Body mass index: BMI 38.0-38.9 Qualified Code(s): E66.01 - Morbid (severe) obesity due to excess calories; Z68.38 - Body mass index [BMI] 38.0-38.9, adult (9) Hypertension, essential: Code(s): I10 - Essential (primary) hypertension Category: Medical Plan History - The patient is a 64-year-old male presenting with routine follow-up for chronic conditions management. - The patient underwent a colonoscopy yesterday at [facility] and reported that the procedure was normal. The recommendation was to follow up in 3 years. - Diagnosed with Diabetes Mellitus, the patient monitors blood sugar levels regularly and requires insulin therapy. - Upcoming international travel in July to the [facility] was discussed, extending from July 22 to August 21. - The patient manages chronic pain secondary to knee and shoulder osteoarthritis, with prescribed oxycodone for severe pain, taken every 8 hours. - The patient consistently adheres to a comprehensive medication regimen for conditions including hypertension, dyslipidemia, and hypothyroidism. Problem List - Diabetes Mellitus - Essential Hypertension - Dyslipidemia - Hypothyroidism - Knee and Shoulder Osteoarthritis - Chronic Pain Syndrome Patient Instructions - Remember to take all prescribed medications, including insulin and thyroid medications, with you during your travel. - Ensure an adequate supply of insulin needles and pain medication while abroad. - Keep your scheduled blood tests and follow-up appointments when you return. - Pay careful attention to your blood sugar levels; adjust as necessary based on symptoms and intake. - Maintain regular communication about any changes in symptoms with healthcare providers. Orders: Orders Hemoglobin A1c Today E10.21 - Type 1 diabetes mellitus with diabetic nephropathy, E10.42 - Type 1 diabetes mellitus with diabetic polyneuropathy, E10.9 - Type 1 diabetes mellitus without complications, E66.01 - Morbid (severe) obesity due to excess calories, E78.9 - Disorder of lipoprotein metabolism, unspecified, F11.20 - Opioid dependence, uncomplicated, I10 - Essential (primary) hypertension, M53.3 - Sacrococcygeal disorders, not elsewhere classified, M54.16 - Radiculopathy, lumbar region, Z68.38 - Body mass index [BMI] 38.0-38.9, adult Comprehensive Met. Panel Today E10.21 - Type 1 diabetes mellitus with diabetic nephropathy, E10.42 - Type 1 diabetes mellitus with diabetic polyneuropathy, E10.9 - Type 1 diabetes mellitus without complications, E66.01 - Morbid (severe) obesity due to excess calories, E78.9 - Disorder of lipoprotein metabolism, unspecified, F11.20 - Opioid dependence, uncomplicated, I10 - Essential (primary) hypertension, M53.3 - Sacrococcygeal disorders, not elsewhere classified, M54.16 - Radiculopathy, lumbar region, Z68.38 - Body mass index [BMI] 38.0-38.9, adult TSH reflex Free T4 Today E10.21 - Type 1 diabetes mellitus with diabetic nephropathy, E10.42 - Type 1 diabetes mellitus with diabetic polyneuropathy, E10.9 - Type 1 diabetes mellitus without complications, E66.01 - Morbid (severe) obesity due to excess calories, E78.9 - Disorder of lipoprotein metabolism, unspecified, F11.20 - Opioid dependence, uncomplicated, I10 - Essential (primary) hypertension, M53.3 - Sacrococcygeal disorders, not elsewhere classified, M54.16 - Radiculopathy, lumbar region, Z68.38 - Body mass index [BMI] 38.0-38.9, adult Complete Blood Count Auto Diff Today E10.21 - Type 1 diabetes mellitus with diabetic nephropathy, E10.42 - Type 1 diabetes mellitus with diabetic polyneuropathy, E10.9 - Type 1 diabetes mellitus without complications, E66.01 - Morbid (severe) obesity due to excess calories, E78.9 - Disorder of lipoprotein metabolism, unspecified, F11.20 - Opioid dependence, uncomplicated, I10 - Essential (primary) hypertension, M53.3 - Sacrococcygeal disorders, not elsewhere classified, M54.16 - Radiculopathy, lumbar region, Z68.38 - Body mass index [BMI] 38.0-38.9, adult LDL Cholesterol Direct Today E10.21 - Type 1 diabetes mellitus with diabetic nephropathy, E10.42 - Type 1 diabetes mellitus with diabetic polyneuropathy, E10.9 - Type 1 diabetes mellitus without complications, E66.01 - Morbid (severe) obesity due to excess calories, E78.9 - Disorder of lipoprotein metabolism, unspecified, F11.20 - Opioid dependence, uncomplicated, I10 - Essential (primary) hypertension, M53.3 - Sacrococcygeal disorders, not elsewhere classified, M54.16 - Radiculopathy, lumbar region, Z68.38 - Body mass index [BMI] 38.0-38.9, adult Medications: New pen needle, diabetic (Ultra-Fine Pen Needle) qid 1,200 ea 5RF E10.21 - Type 1 diabetes mellitus with diabetic nephropathy, E10.42 - Type 1 diabetes mellitus with diabetic polyneuropathy, E10.9 - Type 1 diabetes mellitus without complications Refilled oxycodone-acetaminophen 5-325 mg (Percocet) Partial Fill upon patient request. 1 tab PO Q8H 30 days PRN 60 tabs 0RF pain M13.0 - Polyarthritis, unspecified, M25.511 - Pain in right shoulder, M47.816 - Spondylosis without myelopathy or radiculopathy, lumbar region
[2024-07-07 12:06] VITALS: BP 118/68; PULSE 89; O2SAT 100; BMI 38.7
--- OUTSIDE RECORDS SUMMARY | 2024-07-07 12:51 | XMS_ITS | Encounter Summary ---
Author Organization [facility] Address [address] [place] [address] Phone Care Team Providers Care Grocery Store Bagger Name Role Phone Edward Witt MD Primary Care Provider [phone] Encounter Details Date Type Department Care Team (Late st Contact Info) Description 05/11/2024 Documentation Only [facility] [address] [place] [address] Emily Barnhart [address] [place] [address] Social History Tobacco Use Types [...] Visit [facility] [address] [place] [address] Torey Tom MD [address] [place] [address] [place] [address] documented as of this encounter Visit Diagnoses Not on filedocumented in this encounter Care Teams Grocery Store Bagger Relationship Specialty Start Date End Date Edward Witt MD [address] [place] [address] PCP - General Internal Medicine 05/09/24 documented as of this encounter
--- OUTSIDE RECORDS SUMMARY | 2024-07-07 12:51 | XMS_ITS | Encounter Summary ---
Author Organization [facility] Address [address] [place] [address] Phone Care Team Providers Care Tip Stretcher Name Role Phone Edward Wtit MD Primary Care Provider [phone] Encounter Details Date Type Department Care Team (Late st Contact Info) Description 06/23/2023 Documentation Only [facility] [address] [place] [address] Emily Barnhart [address] [place] [address] Social History Tobacco Use Types [...] Visit [facility] [address] [place] [address] Torey Tom MD [address] [place] [address] [place] [address] documented as of this encounter Visit Diagnoses Not on filedocumented in this encounter Care Teams Tip Stretcher Relationship Specialty Start Date End Date Edward Witt MD [address] [place] [address] PCP - General Internal Medicine 05/09/24 documented as of this encounter
--- OUTSIDE RECORDS SUMMARY | 2024-07-07 12:51 | XMS_ITS | Clinical Summary ---
Author Organization [address] [place] [address] Address [address] [place] [address] Phone Care Team Providers Care Purchasing Administrator Name Role Phone Shawn Johnson MD Primary Care Provider [phone] Allergies No known active allergies Medications amLODIPine-carlota [...] kidney disease) 03/03/2024 Type 2 diabetes mellitus (CMS/[facility] V24, CMS/[facility] V 28) 03/03/2024 HTN (hypertension) 03/03/2024 Encounters Date Type Department Care Team Description 06/05/2024 1:45 PM EDT Office Visit Orthopedic Surgery [address] [address] Satya Rodgers, DPM Dermatophytosis of nail (Primary Dx); Type II diabetes mellitus with peripheral circulatory disorder (CMS/HCC V24, CMS/HCC V28); Diabetic mononeuropathy simplex (CMS/[facility] V24, CMS/[facility] V28); Difficulty walking; Tinea pedis of both feet [...] Upcoming Encounters Date Type Department Care Team ([facility] st Contact Info) Description 09/05/2024 1:00 PM EDT Office Visit Orthopedic Surgery - [place] [address] [facility] [address] [place] [phone] Jose Lloyd, TIFFANIE [address] [facility] [address] [place] [address] Health Maintenance Due Date Last Done Comments [...] Vaccines (1 of 2) 2010 RSV Immunization Adult Patie nts (1 - Risk 60-74 years 1-dose series) [...] age to complete this topic Meningococcal B Vaccine Aged Out No l onger eligible based on patient's age to complete this topic RSV Immunization Patients Un chanda 20 months Aged Out No longer eligible b ased on patient's age to complete this topic Varicella Vaccines Aged Out No longer eligible based on patient's age to complete this topic Insurance [facility] Care Teams Purchasing Administrator Relationship Specialty Start Date End Date Shawn Johnson MD [address] [place] [address] PCP - General 12/23/23
--- OUTSIDE RECORDS SUMMARY | 2024-07-07 12:51 | XMS_ITS | Encounter Summary ---
Author Organization [facility] [place], Address [address] [place] [address] Phone Care Team Providers Care Microfilm Clerk Name Role Phone Edward Witt MD Primary Care Provider [phone] Encounter Details Date Type Department Care Team (Late st Contact Info) Description 03/24/2022 Documentation Only [facility] [address] [place] [phone] Shawn Johnson MD [facility] [place] [address] Social History Tobacco Use Types Packs/Day Years [...] Visit [facility] [address] [place] [address] Torey Tom MD [address] [place] [address] [place] [phone] documented as of this encounter Visit Diagnoses Not on filedocumented in this encounter Care Teams Microfilm Clerk Relationship Specialty Start Date End Date Edward Witt MD [facility] [address] [place] [address] PCP - General Internal Medicine 05/09/24 documented as of this encounter
--- OUTSIDE RECORDS SUMMARY | 2024-07-07 12:51 | XMS_ITS | Encounter Summary ---
Author Organization [facility] Address [address] [place] [address] Phone Care Team Providers Care Sap Grc Security Name Role Phone Edward Witt MD Primary Care Provider [phone] Encounter Details Date Type Department Care Team (Late st Contact Info) Description 11/02/2023 Documentation Only [facility] [address] [place] [address] Emily Barnhart [address] [place] [address] Social History Tobacco Use Types [...] Visit [facility] [address] [place] [address] Torey Tom MD [address] [place] [address] [place] [address] documented as of this encounter Visit Diagnoses Not on filedocumented in this encounter Care Teams Sap Grc Security Relationship Specialty Start Date End Date Edward Witt MD [address] [place] [address] PCP - General Internal Medicine 05/09/24 documented as of this encounter
--- OUTSIDE RECORDS SUMMARY | 2024-07-07 12:51 | XMS_ITS | Encounter Summary ---
Author Organization [facility] Address [address] [place] [address] Phone Care Team Providers Care Home Health Caregiver Name Role Phone Edward Witt MD Primary Care Provider [phone] Encounter Details Date Type Department Care Team (Late st Contact Info) Description 06/23/2023 Documentation Only [facility] [address] [place] [address] Emily Barnhart [address] [place] [address] Social History Tobacco Use Types [...] Visit [facility] [address] [place] [address] Torey Tom MD [address] [place] [address] [place] [address] documented as of this encounter Visit Diagnoses Not on filedocumented in this encounter Care Teams Home Health Caregiver Relationship Specialty Start Date End Date Edward Witt MD [address] [place] [address] PCP - General Internal Medicine 05/09/24 documented as of this encounter
--- OUTSIDE RECORDS SUMMARY | 2024-07-07 12:51 | XMS_ITS | Encounter Summary ---
Author Organization [facility] Address [address] [place] [address] Phone Care Team Providers Care Rib Sawyer Name Role Phone Edward Witt MD Primary Care Provider [phone] Encounter Details Date Type Department Care Team (Late st Contact Info) Description 11/02/2023 Documentation Only [facility] [address] [place] [address] Emily Barnhart [address] [place] [address] Social History Tobacco Use Types [...] Visit [facility] [address] [place] [address] Torey Tom MD [address] [place] [address] [place] [address] documented as of this encounter Visit Diagnoses Not on filedocumented in this encounter Care Teams Rib Sawyer Relationship Specialty Start Date End Date Edward Witt MD [address] [place] [address] PCP - General Internal Medicine 05/09/24 documented as of this encounter
--- OUTSIDE RECORDS SUMMARY | 2024-07-07 12:51 | XMS_ITS | Clinical Summary ---
Author Organization [facility] [place], Address [address] [place] [address] Phone Care Team Providers Care Pattern Attendant Name Role Phone Edward Witt MD Primary Care Provider Allergies No known [...] Visit [facility] [place], [address] [place] [address] Torey Tom MD 05/11/2024 Documentation Only [facility] [place], [address] [facility] [place] [address] Obey Emily from Last 3 [...] Visit [facility] [place], [address] [place] [address] Torey Tom MD [address] [place] [address] [place] [phone] Health Maintenance Due Date Last Done Comments Pneumococcal Vaccine: 50+ Ye ars (1 of 2 - PCV) 1979 Colorectal Cancer Screening: Annual FOBT 2009 Colorectal Cancer Screening: Colonoscopy 2009 Colorectal Cancer Screening: Sigmoidoscopy 2009 Diabetes: Ophthalmology Exam 04/09/2022 Diabetes: Pedal Pulse Checked 04/09/2022 Diabetes: Sensory Foot Exam 04/09/2022 Diabetes: Visual Foot Exam 04/09/2022 Diabetes: Hemoglobin A1C 07/09/2022 04/10/2022 Influenza Vaccine (Season Ended) 2024 Hepatitis B Vaccine Aged Out No longe r eligible based on patient's age to complete this topic Procedures Procedure Name Priority Date/Time Associated Diagnosis Comments HEMOGLOBIN A1C Routine 04/10/2022 3:03 PM EST Stage 3b chronic kidney disease (HCC) from Last 3 Months or Most Recently Relevant to Health Maintenance Results * (ABNORMAL) Hemoglobin A1c (04/10/2022 3:03 PM EST) Hemoglobin A1C 8.2(H) (4.0-5.6) % [facility] Comment: MONITORING: In known diabetic patients, hemoglobin A1c targets should be discussed with health care provider. DIAGNOSTIC USE: ??The [place] Diabetes Association (ADA) and the World Health [...] Supplement 1 Testing performed or reported by [facility], a Service of [facility], [address] [place] [address] Aaliyah Pastrana MD, Ortho Rn [facility]# [id number] Blood (Blood, Venous) 04/10/2022 3:03 PM EST 04/10/2022 3:04 PM EST us Torey Tom MD LAB BLOOD ORDERABLES Final Re sult [facility] from Last 3 Months or Most Recently Relevant to Health Maintenance [place] [address] [employer] Care Teams Pattern Attendant Relationship Specialty Start Date End Date Edward Witt MD [address] [place] [address] PCP - General Internal Medicine 05/09/24
--- OUTSIDE RECORDS SUMMARY | 2024-07-07 12:51 | XMS_ITS | Encounter Summary ---
Author Organization [facility] Address [address] [place] [address] Phone Care Team Providers Care Station Helper Name Role Phone Edward Witt MD Primary Care Provider Encounter Details Date Type Department Care Team (Late st Contact Info) Description 07/09/2023 Documentation Only [facility] [address] [place] [address] Emily Barnhart [address] [place] [address] Social History Tobacco Use Types [...] Visit [facility] [address] [place] [address] Torey Tom MD [address] [place] [address] [place] [address] documented as of this encounter Visit Diagnoses Not on filedocumented in this encounter Care Teams Station Helper Relationship Specialty Start Date End Date Edward Witt MD [address] [place] [address] PCP - General Internal Medicine 05/09/24 documented as of this encounter
== END 2024-07-07 12:21 | disposition home or self-care (01) ==
LOC: HO.HMCC 11:55
PROVIDERS: PCP Internal Medicine; Visit Provider Internal Medicine
DX: E10.21 Type 1 diabetes mellitus with diabetic nephropathy (principal); F11.20 Opioid dependence, uncomplicated; E10.42 Type 1 diabetes mellitus with diabetic polyneuropathy; E10.9 Type 1 diabetes mellitus without complications; E66.01 Morbid (severe) obesity due to excess calories; Z68.38 Body mass index [BMI] 38.0-38.9, adult; M54.16 Radiculopathy, lumbar region; M53.3 Sacrococcygeal disorders, not elsewhere classified; E78.9 Disorder of lipoprotein metabolism, unspecified; I10 Essential (primary) hypertension

== ENCOUNTER → 2024-07-07 11:54 | Outpatient (BNVA) | payer OTHER, SELFPAY | PROVIDERS: PCP Internal Medicine; Visit Provider Internal Medicine | DX: E10.21 Type 1 diabetes mellitus with diabetic nephropathy (principal); E10.42 Type 1 diabetes mellitus with diabetic polyneuropathy; M54.16 Radiculopathy, lumbar region; M53.3 Sacrococcygeal disorders, not elsewhere classified; F11.20 Opioid dependence, uncomplicated; E78.9 Disorder of lipoprotein metabolism, unspecified; E66.01 Morbid (severe) obesity due to excess calories; Z68.38 Body mass index [BMI] 38.0-38.9, adult; I10 Essential (primary) hypertension | CPT/HCPCS: 96127; 99212 ==

== ENCOUNTER 2024-07-12 12:39 | Outpatient (AMB) | payer OTHER, SELFPAY ==
--- NOTE | 2024-07-12 12:57 | MHC.OFFVIS ---
Vital Signs 07/12/24 12:58 Height 5 ft 7 in Weight 246 lb BMI 38.5 BP 124/66 Blood Pressure Location Lt brachial Position Sitting Respiration 16 Pulse 88 Pulse Source Pulse Oximeter Pulse Oximetry (%) 96 Oxygen Delivery Method Room Air Intake Visit Reasons: LT GLENOHUMERAL & ACROMIOCLAVICULAR INJECTIONS Health Type Technician Required: No Allergies No Known Allergies Allergy (Verified 07/12/24 12:59) Medication List - Last Reconciled 07/12/24 by Mary Jane Willson LPN amlodipine-benazepril 10-20 mg 1 cap PO DAILY aspirin (Adult Low Dose Aspirin) 81 mg PO DAILY atorvastatin 10 mg PO BEDTIME blood sugar diagnostic (FreeStyle Lite Strips) USE TO CHECK BLOOD SUGAR 3 TIMES DAILY: FASTING AND BEFORE MEALS cholecalciferol (vitamin D3) 25 mcg PO DAILY 90 days dorzolamide-timolol 22.3-6.8 mg/mL 1 drp ophthalmic (eye) BID dulaglutide (Trulicity) 4.5 mg (0.5 mL) subcut QWEEK 90 days flash glucose sensor (FreeStyle Ye 2 Sensor kit) Use with sensor to monitor blood sugar TID and as needed for s/s hypo/hyperglycemia fluticasone propionate 50 mcg/actuation (Allergy Relief (fluticasone)) 1 spray intranasal DAILY 30 days FreeStyle Ye 2 Colony (flash glucose scanning reader) Use with sensor to monitor blood sugar TID and as needed for s/s hypo/hyperglycemia NS FreeStyle Lite Meter (blood-glucose meter) Use to check blood sugar 4 times daily, fasting and AC NS insulin aspart U-100 (Novolog FlexPen U-100 Insulin aspart) 15 units (0.15 mL) subcut TID 90 days [insulin pen needles 4 times a day] lamotrigine 100 mg PO BID lancets (FreeStyle Lancets) Use to check blood sugar QID, fasting and AC Lantus Solostar U-100 Insulin (insulin glargine) subcutaneously 2 times a day; 50 units at night and 20 units in the morning 90 days NS levothyroxine 50 mcg PO DAILY lidocaine 5% (Lidoderm) 1 patch topical DAILY PRN MDD remove after 12 hours metoclopramide HCl (Reglan) 10 mg PO Q6H 7 days oxycodone-acetaminophen 5-325 mg (Percocet) 1 tab PO Q8H PRN 30 days pantoprazole 20 mg PO DAILY pen needle, diabetic (Ultra-Fine Pen Needle) qid HPI Comments Details: Brian is in my office today after therapeutic acromioclavicular and glenohumeral steroid injection. He had injection on 06/13/2024. He reports 2-3 weeks of very good pain relief. Unfortunately after that the pain started to come back. I offered him diagnostic interscalene nerve block in preparation for curonix PNS. I will schedule him without sedation under ultrasound guidance. Patient agreed to go for the procedure. Prior: The patient was evaluated for the pain on the left with multiple procedures. Diagnostic medial branch block L3 L4-5 resulted in not significant improvement. Diagnostic sacroiliac joint block resulted in 80% pain improvement for the next 6 hours after the procedure. SI joint fusion was taken into consideration and was planned however his insurance company requested us to perform 2nd diagnostic versus therapeutic sacroiliac joint block. After performance of the block patient reported pain reduction more than 50%. After that we performed diagnostic medical branch block based on CT scan changes and I went 1 level higher L2-L3 L4 medial branches. He reported pain improvement from 8/10 to 1/10 for 24 hours after the procedure. This is 90% pain improvement. I recommended him Sprint PNS. He received the procedure on 04/27/2023. He reports today that he does not feel stimulation for 2. days, however when I offered him to remove the dislodged stimulating lead see as above and replace it with new one he stated that he does not like sprint PNS. He requests something more permanent in nature. I gave him [employer] brochure to read. Past Procedures: 09/29/2022 left sacroiliac joint diagnostic injection. 09/01/22: Bilateral Diagnostic L3-L4 DR L5 MBB-85% pain relief PFS Medical History Hypothyroid Glaucoma Chronic SI joint pain Lumbar radiculopathy Neuropathy BPH (benign prostatic hyperplasia) Elevated cholesterol GERD (gastroesophageal reflux disease) CKD (chronic kidney disease) Diabetes HTN (hypertension) Surgical History Hx of cataract surgery History of surgery on lower extremity History of shoulder surgery Family History Father Diabetes Hypertension Cancer Mother Hypertension Diabetes Social History Housing: House Patient Tobacco Use Status: Never used Tobacco e-Cigarette/Vaping Use: Never Used service: No Current occupational status: disabled Cognitive needs: No Hearing needs: No Vision needs: Yes Review of Systems Const All systems reviewed & are unremarkable except as noted in HPI and below Neuro Denies Sensory deficit (Neuro) Physical Exam Vital Signs: Last Vital Signs Pulse 88 07/12/24 12:58 Resp 16 07/12/24 12:58 BP 124/66 07/12/24 12:58 Pulse Ox 96 07/12/24 12:58 Oxygen Delivery Method Room Air 07/12/24 12:58 BMI result Body Mass Index 38.5 General: Appears afebrile. Alert and oriented. Mood and affect appropriate. Follows and participates in conversation appropriately. Respiratory effort is unlabored. Able to transition from sit to stand unassisted. Uses cane with ambulation. Ambulates with bilaterally normal heel strike and toe off. Back/Spine/Pelvis Other: Patient is able to walk and stand on heels and tip toes with mild difficulties on the right due to pain. Demonstrating good motor tone bilaterally. Antalgic gait, with mild limping. Can flex forward to 50-60 degrees and extend to 5-10 degrees before experiencing lumbar pain. Increasing pain with lumbar extension. Demonstrates 5/5 strength of quadriceps bilaterally as well as flexion/dorsiflexion of bilateral feet against resistance. 2+ pedal pulses bilaterally. Straight leg rise with dorsiflexion negative bilaterally. +2 patellar and achilles reflexes bilaterally. Facet loading test positive bilaterally. Ramya signs + bilaterally. Dylan?s and Stinchfield tests are negative bilaterally. No groin pain with I/E hip rotations. Back: back tenderness Cervical Spine: cervical ROM normal, cervical muscular tenderness, No Cervical spine tenderness and No step off deformity Thoracic/Lumbar Spine: thoracic and lumbar spine normal to inspection, No Thoracic/lumbar spine scar(s), Lasegue's sign negative, straight leg raise negative bilaterally, pain with thoraco-lumbar ROM, paraspinal muscle tenderness, thoraco-lumbar ROM limited, thoracic spinal tenderness and lumbar spinal tenderness at L4 and at L5 Pelvis: buttock tenderness on the right Sacroiliac joints: bilaterally tender to palpation Neuro Other: Decreased sensation to dorsal and plantar surfaces of bilateral feet. General: moves all extremities and no focal motor deficits Cognition (Neuro): normal cognition Motor exam (neuro): no tremor noted and Motor abnormalities not present Sensory Exam: No Sensory deficit (Neuro) Extrem General: Yes capillary refill normal, Yes no clubbing, cyanosis or edema and Yes no calf tenderness Right upper extremity: shoulder/upper arm (Limited ROM due to pain.) Details: normal to inspection and tenderness Location: of the A-C joint; no swelling, no ecchymosis and no crepitus Assessment & Plan Assessment & Plan (1) Sacroiliac joint pain: Code(s): M53.3 - Sacrococcygeal disorders, not elsewhere classified Category: Medical (2) Sacroiliac joint dysfunction of left side: Code(s): M53.3 - Sacrococcygeal disorders, not elsewhere classified Category: Medical (3) Myofascial pain syndrome: Code(s): M79.18 - Myalgia, other site Category: Medical (4) Spondylosis of lumbar region without myelopathy or radiculopathy: Code(s): M47.816 - Spondylosis without myelopathy or radiculopathy, lumbar region Category: Medical (5) Arthritis of left glenohumeral joint: Code(s): M19.012 - Primary osteoarthritis, left shoulder Category: Medical (6) Arthritis of left acromioclavicular joint: Code(s): M19.012 - Primary osteoarthritis, left shoulder Category: Medical (7) Left shoulder pain: Code(s): M25.512 - Pain in left shoulder Category: Medical Plan Patient agreed and I will schedule him for diagnostic left interscalene nerve block. With good results of this procedure I will schedule him for the trial of the sprint PNS versus curonix PNS. For curonix PNS he needs to go for psychological evaluation. Coding Level of Care Code Est Pt Level 3 (95168) Diagnoses Sacroiliac joint pain M53.3 Sacroiliac joint dysfunction of left side M53.3 Myofascial pain syndrome M79.18 Spondylosis of lumbar region without myelopathy or radiculopathy M47.816 Arthritis of left glenohumeral joint M19.012 Arthritis of left acromioclavicular joint M19.012 Left shoulder pain M25.512
[2024-07-12 12:58] VITALS: BP 124/66; PULSE 88; RESP 16; O2SAT 96; BMI 38.5
--- OUTSIDE RECORDS SUMMARY | 2024-07-12 14:55 | XMS_ITS | Encounter Summary ---
Author Organization [facility] Address [address] [place] [address] Phone Care Team Providers Care Director Physical Name Role Phone Edward Witt MD Primary Care Provider [phone] Encounter Details Date Type Department Care Team (Late st Contact Info) Description 11/02/2023 Documentation Only [facility] [address] [place] [address] Emily Barnhart [address] [place] [address] Social History Tobacco Use Types [...] Visit [facility] [address] [place] [address] Torey Tom MD [address] [place] [address] [place] [address] documented as of this encounter Visit Diagnoses Not on filedocumented in this encounter Care Teams Director Physical Relationship Specialty Start Date End Date Edward Witt MD [address] [place] [address] PCP - General Internal Medicine 05/09/24 documented as of this encounter
--- OUTSIDE RECORDS SUMMARY | 2024-07-12 14:55 | XMS_ITS | Encounter Summary ---
Author Organization [facility] Address [address] [place] [address] Phone Care Team Providers Care Hog Room Supervisor Name Role Phone Edward Witt MD Primary Care Provider [phone] Encounter Details Date Type Department Care Team (Late st Contact Info) Description 06/23/2023 Documentation Only [facility] [address] [place] [address] Emily Barnhart [address] [place] [address] Social History Tobacco Use Types [...] Visit [facility] [address] [place] [address] Torey Tom MD [address] [place] [address] [place] [address] documented as of this encounter Visit Diagnoses Not on filedocumented in this encounter Care Teams Hog Room Supervisor Relationship Specialty Start Date End Date Edward Witt MD [address] [place] [address] PCP - General Internal Medicine 05/09/24 documented as of this encounter
--- OUTSIDE RECORDS SUMMARY | 2024-07-12 14:55 | XMS_ITS | Clinical Summary ---
Author Organization [facility] [place], Address [address] [place] [address] Phone Care Team Providers Care Greenskeeper Head Name Role Phone Edward Witt MD Primary Care Provider [phone] Allergies No known active allergies Medications amLODIPine-carlota [...] Visit [facility] [place], [address] [place] [address] Torey Tom MD Stage 3b chronic kidney disease (HCC) (Primary Dx) 05/11/2024 Documentation Only [facility] [address] [place] [address] Emily Barnhart from Last 3 Months Family History Medical [...] [facility] [address] [place] [address] Torey Tom MD [address] [place] [address] [place] [phone] Health Maintenance Due Date Last Done Comments [...] PM EST) Hemoglobin A1C 8.2(H) (4.0-5.6) % [facility] Comment: MONITORING: In known diabetic patients, hemoglobin A1c targets should be discussed with health care provider. DIAGNOSTIC USE: ??The [place] Diabetes Association (ADA) and the World Health [...] Supplement 1 Testing performed or reported by [facility], a Service of [facility], [address] [place] [address] Aaliyah Pastrana MD, Hyperion Developer [facility]# [id number] Blood (Blood, Venous) 04/10/2022 3:03 PM EST 04/10/2022 3:04 PM EST us Torey Tom MD LAB BLOOD ORDERABLES Final Re sult [facility] from Last 3 Months or Most Recently Relevant to Health Maintenance Insurance [employer] Care Teams Greenskeeper Head Relationship Specialty Start Date End Date Edward Witt MD [address] [place] [address] [place] [address] PCP - General Internal Medicine 05/09/24
--- OUTSIDE RECORDS SUMMARY | 2024-07-12 14:55 | XMS_ITS | Encounter Summary ---
Author Organization [facility], Address [address] [place] [address] Phone Care Team Providers Care Dental Technologist Name Role Phone Edward Witt MD Primary Care Provider [phone] Encounter Details Date Type Department Care Team (Late st Contact Info) Description 03/24/2022 Documentation Only [facility] [address] [place] [address] [place] [address] Social History Tobacco Use Types Packs/Day Years [...] Visit [facility] [address] [place] [address] Torey Tom MD [address] [place] [address] [place] [address] documented as of this encounter Visit Diagnoses Not on filedocumented in this encounter Care Teams Dental Technologist Relationship Specialty Start Date End Date Edward Witt MD [facility] [address] [place] [address] PCP - General Internal Medicine 05/09/24 documented as of this encounter
--- OUTSIDE RECORDS SUMMARY | 2024-07-12 14:55 | XMS_ITS | Encounter Summary ---
Author Organization [facility] Address [address] [place] [address] Phone Care Team Providers Care Sergeant Missile Crewman Name Role Phone Edward Witt MD Primary Care Provider [phone] Encounter Details Date Type Department Care Team (Late st Contact Info) Description 05/11/2024 Documentation Only [facility] [address] [place] [address] Emily Barnhart [address] [place] [address] Social History Tobacco Use Types [...] Visit [facility] [address] [place] [address] Torey Tom MD [address] [place] [address] [place] [address] documented as of this encounter Visit Diagnoses Not on filedocumented in this encounter Care Teams Sergeant Missile Crewman Relationship Specialty Start Date End Date Edward Witt MD [address] [place] [address] PCP - General Internal Medicine 05/09/24 documented as of this encounter
--- OUTSIDE RECORDS SUMMARY | 2024-07-12 14:55 | XMS_ITS | Encounter Summary ---
Author Organization [facility] Address [address] [place] [address] Phone Care Team Providers Care Education Nurse Name Role Phone Edward Witt MD Primary Care Provider [phone] Encounter Details Date Type Department Care Team (Late st Contact Info) Description 11/02/2023 Documentation Only [facility] [address] [place] [place] [address] Emily Barnhart [address] [place] [address] Social History Tobacco Use Types [...] Visit [facility] [address] [place] [place] [address] Torey Tom MD [address] [place] [address] [place] [address] documented as of this encounter Visit Diagnoses Not on filedocumented in this encounter Care Teams Education Nurse Relationship Specialty Start Date End Date Edward Witt MD [address] [place] [address] PCP - General Internal Medicine 05/09/24 documented as of this encounter
--- OUTSIDE RECORDS SUMMARY | 2024-07-12 14:55 | XMS_ITS | Encounter Summary ---
Author Organization [facility] Address [address] [place] [address] Phone Care Team Providers Care Employee Relations Administrator Name Role Phone Edward Witt MD Primary Care Provider [phone] Encounter Details Date Type Department Care Team (Late st Contact Info) Description 07/09/2023 Documentation Only [facility] [address] [place] [address] Emily Barnhart [address] [place] [address] Social History Tobacco Use Types [...] Visit [facility] [address] [place] [address] Torey Tom MD [address] [place] [address] [place] [address] documented as of this encounter Visit Diagnoses Not on filedocumented in this encounter Care Teams Employee Relations Administrator Relationship Specialty Start Date End Date Edward Witt MD [address] [place] [address] PCP - General Internal Medicine 05/09/24 documented as of this encounter
--- OUTSIDE RECORDS SUMMARY | 2024-07-12 14:55 | XMS_ITS | Encounter Summary ---
Author Organization [facility] Address [address] [place] [address] Phone Care Team Providers Care Shallot Cleaner Name Role Phone Edward Witt MD Primary Care Provider [phone] Encounter Details Date Type Department Care Team (Late st Contact Info) Description 06/23/2023 Documentation Only [facility] [address] [place] [address] Emily Barnhart [address] [place] [address] Social History Tobacco Use Types [...] Visit [facility] [address] [place] [place] [address] Torey Tom MD [address] [place] [address] [place] [address] documented as of this encounter Visit Diagnoses Not on filedocumented in this encounter Care Teams Shallot Cleaner Relationship Specialty Start Date End Date Edward Witt MD [address] [place] [address] PCP - General Internal Medicine 05/09/24 documented as of this encounter
--- OUTSIDE RECORDS SUMMARY | 2024-07-12 14:55 | XMS_ITS | Clinical Summary ---
Author Organization [address] [place] [address] Address [address] [place] [address] Phone Care Team Providers Care Changer Fixer Name Role Phone Shawn Johnson MD Primary Care Provider [phone] Allergies No known active allergies Medications amLODIPine-carlota [...] kidney disease) 03/03/2024 Type 2 diabetes mellitus (CMS/[facility] V24, CMS/[facility] V 28) 03/03/2024 HTN (hypertension) 03/03/2024 Encounters Date Type Department Care Team Description 06/05/2024 1:45 PM EDT Office Visit Orthopedic Surgery [address] [address] Satya Rodgers, DPM Dermatophytosis of nail (Primary Dx); Type II diabetes mellitus with peripheral circulatory disorder (CMS/HCC V24, CMS/HCC V28); Diabetic mononeuropathy simplex (CMS/[facility] V24, CMS/[facility] V28); Difficulty walking; Tinea pedis of both [...] Upcoming Encounters Date Type Department Care Team ([facility] st Contact Info) Description 09/05/2024 1:00 PM EDT Office Visit Orthopedic Surgery - [place] 250 175 [facility] 250 [place] [address] Jose Lloyd, TIFFANIE 175 [facility] 250 [place] [address] Health Maintenance Due Date Last Done Comments [...] patient's age to complete this topic Insurance [facility] [address] PLAN Care Teams Changer Fixer Relationship Specialty Start Date End Date Shawn Johnson MD [address] [place] [address] PCP - General 12/23/23
== END 2024-07-12 13:06 | disposition home or self-care (01) ==
LOC: HO.PMC 12:40
PROVIDERS: PCP Internal Medicine; Visit Provider Anesthesiology
DX: M53.3 Sacrococcygeal disorders, not elsewhere classified (principal); M79.18 Myalgia, other site; M47.816 Spondylosis without myelopathy or radiculopathy, lumbar region; M19.012 Primary osteoarthritis, left shoulder; M25.512 Pain in left shoulder
CPT/HCPCS: 99213

== ENCOUNTER → 2024-07-12 12:39 | Outpatient (BNVA) | payer OTHER, SELFPAY | PROVIDERS: PCP Internal Medicine; Visit Provider Anesthesiology | DX: M53.3 Sacrococcygeal disorders, not elsewhere classified (principal); M79.18 Myalgia, other site; M47.816 Spondylosis without myelopathy or radiculopathy, lumbar region; M19.012 Primary osteoarthritis, left shoulder | CPT/HCPCS: 99212 ==

== ENCOUNTER 2024-07-19 07:59 | Outpatient (REF) | payer OTHER, SELFPAY ==
--- OUTSIDE RECORDS SUMMARY | 2024-07-19 08:04 | XMS_ITS | Encounter Summary ---
Author Organization [facility] Address [address] [place] [address] Phone Care Team Providers Care Mri Manager Name Role Phone Edward Witt MD Primary Care Provider [phone] Encounter Details Date Type Department Care Team (Late st Contact Info) Description 11/02/2023 Documentation Only [facility] [address] [place] [address] Emily Barnhart [address] [place] [address] Social History Tobacco Use Types [...] Visit [facility] [address] [place] [address] Torey Tom MD [address] [place] [address] [place] [address] documented as of this encounter Visit Diagnoses Not on filedocumented in this encounter Care Teams Mri Manager Relationship Specialty Start Date End Date Edward Witt MD [address] [place] [address] PCP - General Internal Medicine 05/09/24 documented as of this encounter
--- OUTSIDE RECORDS SUMMARY | 2024-07-19 08:04 | XMS_ITS | Encounter Summary ---
Author Organization [facility] Address [address] [place] [address] Phone Care Team Providers Care Rural Route Mail Carrier Name Role Phone Edward Witt MD Primary Care Provider [phone] Encounter Details Date Type Department Care Team (Late st Contact Info) Description 06/23/2023 Documentation Only [facility] [address] [place] [address] Emily Barnhart [address] [place] [address] Social History Tobacco Use Types [...] [facility] [address] [place] [address] Torey Tom MD [address] [place] [address] [place] [address] documented as of this encounter Visit Diagnoses Not on filedocumented in this encounter Care Teams Rural Route Mail Carrier Relationship Specialty Start Date End Date Edward Witt MD [address] [place] [address] PCP - General Internal Medicine 05/09/24 documented as of this encounter
--- OUTSIDE RECORDS SUMMARY | 2024-07-19 08:04 | XMS_ITS | Encounter Summary ---
Author Organization [facility] Address [address] [place] [address] Phone Care Team Providers Care Agricultural Commodities Grader Name Role Phone Edward Witt MD Primary Care Provider [phone] Encounter Details Date Type Department Care Team (Late st Contact Info) Description 07/09/2023 Documentation Only [facility] [address] [place] [address] Emily Barnhart [address] [place] [address] Social History Tobacco Use Types [...] [facility] [address] [place] [address] Torey Tom MD [address] [place] [address] Dr. [place] [address] documented as of this encounter Visit Diagnoses Not on filedocumented in this encounter Care Teams Agricultural Commodities Grader Relationship Specialty Start Date End Date Edward Witt MD [address] [place] [address] PCP - General Internal Medicine 05/09/24 documented as of this encounter
--- OUTSIDE RECORDS SUMMARY | 2024-07-19 08:04 | XMS_ITS | Clinical Summary ---
Author Organization [facility], Address [address] [place] [address] Phone Care Team Providers Care Receiving Associate Name Role Phone Edward Witt MD Primary Care Provider [phone] Allergies No known active allergies Medications amLODIPine-carlota [...] Visit [facility], [address] [place] [address] Torey Tom MD Stage 3b chronic kidney disease (HCC) (Primary Dx) 05/11/2024 Documentation Only [facility] [address] [place] [address] Emily Barnhart from Last 3 [...] Visit [facility] [address] [place] [address] Torey Tom MD [address] [place] [address] [place] [address] Health Maintenance Due Date Last Done Comments [...] PM EST) Hemoglobin A1C 8.2(H) (4.0-5.6) % [facility] Comment: MONITORING: In known diabetic patients, hemoglobin A1c targets should be discussed with health care provider. DIAGNOSTIC USE: ??The [place] Diabetes Association (ADA) and the World Health [...] [facility], a Service of [facility], [address] [place] [address] Aaliyah Pastrana MD, Groundman [facility]# [id number] Blood (Blood, Venous) 04/10/2022 3:03 PM EST 04/10/2022 3:04 PM EST us Torey Tom MD LAB BLOOD ORDERABLES Final Re sult [facility] from Last 3 Months or Most Recently Relevant to Health Maintenance Insurance [employer] Care Teams Receiving Associate Relationship Specialty Start Date End Date Edward Witt MD [address] [place] [address] PCP - General Internal Medicine 05/09/24
--- OUTSIDE RECORDS SUMMARY | 2024-07-19 08:04 | XMS_ITS | Encounter Summary ---
Author Organization [facility] Address [address] [place] [address] Phone Care Team Providers Care Rail Grinder Name Role Phone Edward Witt MD Primary Care Provider [phone] Encounter Details Date Type Department Care Team (Late st Contact Info) Description 05/11/2024 Documentation Only [facility] [address] [place] [address] Emily Barnhart [address] [place] [address] Social History Tobacco Use Types [...] [facility] [address] [place] [address] Torey Tom MD [address] [place] [address] [place] [address] documented as of this encounter Visit Diagnoses Not on filedocumented in this encounter Care Teams Rail Grinder Relationship Specialty Start Date End Date Edward Witt MD [address] [place] [address] PCP - General Internal Medicine 05/09/24 documented as of this encounter
--- OUTSIDE RECORDS SUMMARY | 2024-07-19 08:04 | XMS_ITS | Encounter Summary ---
Author Organization [facility] [place], Address [address] [place] [address] Phone Care Team Providers Care Game Advisor Name Role Phone Edward Witt MD Primary Care Provider [phone] Encounter Details Date Type Department Care Team (Late st Contact Info) Description 03/24/2022 Documentation Only [facility] [address] [place] [address] Shawn Johnson MD [facility] [place] [place] [address] Social History Tobacco Use Types Packs/Day Years [...] Visit [facility] [address] [place] [address] Torey Tom MD [address] [place] [address] [place] [address] documented as of this encounter Visit Diagnoses Not on filedocumented in this encounter Care Teams Game Advisor Relationship Specialty Start Date End Date Edward Witt MD [facility] [address] [place] [address] PCP - General Internal Medicine 05/09/24 documented as of this encounter
--- OUTSIDE RECORDS SUMMARY | 2024-07-19 08:04 | XMS_ITS | Encounter Summary ---
Author Organization [facility] Address [address] [place] [address] Phone Care Team Providers Care Dye Lab Technician Name Role Phone Edward Witt MD Primary Care Provider [phone] Encounter Details Date Type Department Care Team (Late st Contact Info) Description 11/02/2023 Documentation Only [facility] [address] [place] [address] Emily Barnhart [address] [place] [address] Social History Tobacco Use Types [...] [facility] [address] [place] [address] Torey Tom MD [address] [place] [address] [place] [address] documented as of this encounter Visit Diagnoses Not on filedocumented in this encounter Care Teams Dye Lab Technician Relationship Specialty Start Date End Date Edward Witt MD [address] [place] [address] PCP - General Internal Medicine 05/09/24 documented as of this encounter
--- OUTSIDE RECORDS SUMMARY | 2024-07-19 08:04 | XMS_ITS | Clinical Summary ---
Author Organization [address] [place] [address] Address 175 [place] [address] Phone Care Team Providers Care Joint Cutter Machine Name Role Phone Shawn Johnson MD Primary Care Provider [phone] Allergies No known active allergies Medications amLODIPine-carlota [...] kidney disease) 03/03/2024 Type 2 diabetes mellitus (CMS/[facility] V24, CMS/[facility] V 28) 03/03/2024 HTN (hypertension) 03/03/2024 Encounters Date Type Department Care Team Description 06/05/2024 1:45 PM EDT Office Visit Orthopedic Surgery [address] [address] Satya Rodgers, DPM Dermatophytosis of nail (Primary Dx); Type II diabetes mellitus with peripheral circulatory disorder (CMS/HCC V24, CMS/HCC V28); Diabetic mononeuropathy simplex ([facility] V24, CMS/[facility] V28); Difficulty walking; Tinea pedis of both [...] Upcoming Encounters Date Type Department Care Team ([facility] st Contact Info) Description 09/05/2024 1:00 PM EDT Office Visit Orthopedic Surgery - [place] 250 175 [facility] 250 [place] [address] Jose Lloyd, TIFFANIE 175 [facility] 250 [place] [address] Health Maintenance Due Date Last Done Comments [...] patient's age to complete this topic Insurance [facility] PLAN Care Teams Joint Cutter Machine Relationship Specialty Start Date End Date Shawn Johnson MD [address] [place] [address] PCP - General 12/23/23
--- OUTSIDE RECORDS SUMMARY | 2024-07-19 08:04 | XMS_ITS | Encounter Summary ---
Author Organization [facility] Address [address] [place] [address] Phone Care Team Providers Care Laundry Operator Wash Room Name Role Phone Edward Witt MD Primary Care Provider [phone] Encounter Details Date Type Department Care Team (Late st Contact Info) Description 06/23/2023 Documentation Only [facility] [address] [place] [address] Emily Barnhart [address] [place] [address] Social History Tobacco Use Types [...] [facility] [address] [place] [address] Torey Tom MD [address] [place] [address] [place] [address] documented as of this encounter Visit Diagnoses Not on filedocumented in this encounter Care Teams Laundry Operator Wash Room Relationship Specialty Start Date End Date Edward Witt MD [address] [place] [address] PCP - General Internal Medicine 05/09/24 documented as of this encounter
== END 2024-07-19 08:00 | disposition home or self-care (01) ==
LOC: HO.CT 07:59
PROVIDERS: PCP Internal Medicine; Visit Provider Physician Assistant
DX: Z13.89 Encounter for screening for other disorder (principal)

== ENCOUNTER 2024-07-20 10:20 | Outpatient (REF) | payer OTHER, SELFPAY ==
--- NOTE | ~2024-07-20 | CT_ITS ---
EXAMINATION: CT SHOULDER WITH IV CONTRAST LEFT HISTORY: M77.8 - Other enthesopathies, not elsewhere classified. TECHNIQUE: Serial 2 mm helically acquired images were obtained through the left shoulder after the intra-articular administration of dilute contrast material in the fluoroscopy suite per standard departmental protocol. Coronal and sagittal reformats were also obtained and evaluated. One or more of the following techniques was used for dose reduction: Automated exposure control, adjustment of the mA and/or kV according to patient size, use of iterative reconstruction technique. DLP: 568 mGy-cm COMPARISON: Correlation is made to plain films of the left shoulder dated 04/18/2024 and the arthrogram images performed the same day. FINDINGS: There is adequate contrast material within the joint space. A small linear collection of contrast is seen in the region of the musculotendinous junction of the subscapularis muscle (series 3, images 51-52 and series 7, images 47-48). This likely represents the needle track from the arthrogram. No contrast is seen extending into the supraspinatus, infraspinatus, or teres minor muscles or tendons. There is no contrast in the subdeltoid/subacromial bursa. The glenoid labrum is unremarkable in appearance. The biceps tendon is normally located. The bones are intact without fracture or dislocation. The visualized portion of the left lung is clear. CT/CT shoulder LT w IV con IMPRESSION: No definite evidence of a rotator cuff tear. Small collection of contrast at the musculotendinous junction of the subscapularis muscle, likely related to needle placement as described. Electronically signed by: Josiah Reynaga MD 07/20/2024 02:35 PM EDT
--- NOTE | ~2024-07-20 | FL_ITS ---
EXAMINATION: XR ARTHROGRAM SHOULDER, LEFT CLINICAL INFORMATION: M77.8 - Other enthesopathies, not elsewhere classified COMPARISON: None available. TECHNIQUE: Following explaining fluoroscopy-guided left shoulder arthrogram procedure, benefits and risk, a written consent was obtained. Patient was placed supine on fluoroscopy table and optimal site was selected under fluoroscopy and marked on the skin with a marker. The marked site was cleaned and draped in usual sterile manner with 2% chlorhexidine solution. 1% lidocaine was injected at the marked site. Through a small skin incision a 22-gauge spinal needle was inserted into the joint space and 2 mL of contrast was injected to opacify the joint. A single image was obtained for documentation. Subsequently further 2 mL of nonionic contrast, 2 mL of 1% lidocaine and 10 mL of air was injected into the joint space and needle withdrawn. Complete hemostasis was achieved at puncture site. Patient tolerated procedure extremely well. Patient was sent to CT for further imaging. Patient is not a candidate for MRI imaging FINDINGS: There are no fractures or dislocations. No lytic or sclerotic process There is loss of glenohumeral joint space without any loose bodies. No externalization of contrast and air seen in the subcutaneous deltoid or subdural acromial bursa. No intraluminal filling defect in the joint space to suspect any loose bodies. FLUOROSCOPY TIME: 1 minute 16 seconds DOSE AREA PRODUCT: 1043 uGy-m2 (microgray-meter squared) FL/FL arthrogram shoulder LT IMPRESSION: Successful fluoroscopy-guided left shoulder double contrast arthrogram was performed. Electronically signed by: Zac Hwang MD 07/21/2024 07:17 AM EDT
[2024-07-20] MEDS: iohexoL 300 MG/ML 50 ML INFUS..BTL 10 ML INTRAARTIC (11:23)
--- OUTSIDE RECORDS SUMMARY | 2024-07-20 11:50 | XMS_ITS | Encounter Summary ---
Author Organization [facility] Address [address] [place] [address] Phone Care Team Providers Care Sample Stitcher Name Role Phone Edward Witt MD Primary Care Provider [phone] Encounter Details Date Type Department Care Team (Late st Contact Info) Description 05/11/2024 Documentation Only [facility] [address] [place] [address] Emily Barnhart [address] [place] [address] Social History Tobacco Use Types [...] Visit [facility] [address] [place] [address] Torey Tom MD [address] [place] [address] Dr[place] [address] documented as of this encounter Visit Diagnoses Not on filedocumented in this encounter Care Teams Sample Stitcher Relationship Specialty Start Date End Date Edward Witt MD [address] [place] [address] PCP - General Internal Medicine 05/09/24 documented as of this encounter
--- OUTSIDE RECORDS SUMMARY | 2024-07-20 11:50 | XMS_ITS | Encounter Summary ---
Author Organization [facility] Address [address] [place] [address] Phone Care Team Providers Care Resident Physician Name Role Phone Edward Witt MD Primary Care Provider [phone] Encounter Details Date Type Department Care Team (Late st Contact Info) Description 11/02/2023 Documentation Only [facility] [address] [place] [address] Emily Barnhart [address] [place] [address] Social History Tobacco Use Types [...] Visit [facility] [address] [place] [address] Torey Tom MD [address] [place] [address] [place] [address] documented as of this encounter Visit Diagnoses Not on filedocumented in this encounter Care Teams Resident Physician Relationship Specialty Start Date End Date Edward Witt MD [address] [place] [address] PCP - General Internal Medicine 05/09/24 documented as of this encounter
--- OUTSIDE RECORDS SUMMARY | 2024-07-20 11:50 | XMS_ITS | Encounter Summary ---
Author Organization [facility] Address [address] [place] [address] Phone Care Team Providers Care Environmental Services Director Name Role Phone Edward Witt MD Primary Care Provider [phone] Encounter Details Date Type Department Care Team (Late st Contact Info) Description 06/23/2023 Documentation Only [facility] [address] [place] [address] Emily Barnhart [address] [place] [address] Social History Tobacco Use Types [...] [facility] [address] [place] [address] Torey Tom MD [address] [place] [address] [place] [address] documented as of this encounter Visit Diagnoses Not on filedocumented in this encounter Care Teams Environmental Services Director Relationship Specialty Start Date End Date Edward Witt MD [address] [place] [address] PCP - General Internal Medicine 05/09/24 documented as of this encounter
--- OUTSIDE RECORDS SUMMARY | 2024-07-20 11:50 | XMS_ITS | Clinical Summary ---
Author Organization [address] [place] [address] Address 175 [place] [address] Phone Care Team Providers Care Service Delivery Analyst Name Role Phone Shawn Johnson MD Primary Care Provider [phone] Allergies No known active allergies Medications amLODIPine-carlota [...] kidney disease) 03/03/2024 Type 2 diabetes mellitus (CMS/[facility] V24, CMS/[facility] V 28) 03/03/2024 HTN (hypertension) 03/03/2024 Encounters Date Type Department Care Team Description 06/05/2024 1:45 PM EDT Office Visit Orthopedic Surgery [address] [address] Satya Rodgers, DPM Dermatophytosis of nail (Primary Dx); Type II diabetes mellitus with peripheral circulatory disorder (CMS/HCC V24, CMS/HCC V28); Diabetic mononeuropathy simplex (CMS/[facility] V24, CMS/[facility] V28); Difficulty walking; Tinea pedis of [...] Upcoming Encounters Date Type Department Care Team ([facility] st Contact Info) Description 09/05/2024 1:00 PM EDT Office Visit Orthopedic Surgery - [place] 250 175 [facility] 250 [place] [address] Jose Lloyd, TIFFANIE 175 [facility] 250 [place] [address] Health Maintenance Due Date Last Done Comments [...] patient's age to complete this topic Insurance [facility] [place] [address] Care Teams Service Delivery Analyst Relationship Specialty Start Date End Date Shawn Johnson MD [address] [place] [address] PCP - General 12/23/23
--- OUTSIDE RECORDS SUMMARY | 2024-07-20 11:50 | XMS_ITS | Clinical Summary ---
Author Organization [facility], Address [address] [address] Phone Care Team Providers Care Proof Tester Name Role Phone Edward Witt MD Primary Care Provider [phone] Allergies No known active allergies Medications amLODIPine-carlota [...] Visit [facility], [address] [place] [address] Torey Tom MD Stage 3b chronic kidney disease (HCC) (Primary Dx) 05/11/2024 Documentation Only [facility] [address] [place] [address] Emily Barnhart from Last 3 [...] Visit [facility] [address] [place] [address] Torey Tom MD [address] [place] [address] [place] [id number] Health Maintenance Due Date Last Done Comments [...] PM EST) Hemoglobin A1C 8.2(H) (4.0-5.6) % [facility] Comment: MONITORING: In known diabetic patients, hemoglobin A1c targets should be discussed with health care provider. DIAGNOSTIC USE: ??The [place] [employer] (ADA) and the World Health [...] Supplement 1 Testing performed or reported by [facility], a Service of [facility], [address] [place] [address] Aaliyah Pastrana MD, Senior Statistician [facility]# [id number] Blood (Blood, Venous) 04/10/2022 3:03 PM EST 04/10/2022 3:04 PM EST us Torey Tom MD LAB BLOOD ORDERABLES Final Re sult [facility] from Last 3 Months or Most Recently Relevant to Health Maintenance Insurance [employer] Care Teams Proof Tester Relationship Specialty Start Date End Date Edward Witt MD [address] [place] [address] PCP - General Internal Medicine 05/09/24
--- OUTSIDE RECORDS SUMMARY | 2024-07-20 11:50 | XMS_ITS | Encounter Summary ---
Author Organization [facility] Address [address] [place] [address] Phone Care Team Providers Care Building Construction Contractor Name Role Phone Edward Witt MD Primary Care Provider [phone] Encounter Details Date Type Department Care Team (Late st Contact Info) Description 06/23/2023 Documentation Only [facility] [address] [place] [address] Emily Barnhart [address] [place] [address] Social History Tobacco Use Types [...] Visit [facility] [address] [place] [address] Torey Tom MD [address] [place] [address] [place] [address] documented as of this encounter Visit Diagnoses Not on filedocumented in this encounter Care Teams Building Construction Contractor Relationship Specialty Start Date End Date Edward Witt MD [address] [place] [address] PCP - General Internal Medicine 05/09/24 documented as of this encounter
--- OUTSIDE RECORDS SUMMARY | 2024-07-20 11:50 | XMS_ITS | Encounter Summary ---
Author Organization [facility] Address [address] [place] [address] Phone Care Team Providers Care Quality Engineer Medical Device Name Role Phone Edward Witt MD Primary Care Provider [phone] Encounter Details Date Type Department Care Team (Late st Contact Info) Description 07/09/2023 Documentation Only [facility] [address] [place] [address] Emily Barnhart [address] [place] [address] Social History Tobacco Use Types [...] Visit [facility] [address] [place] [address] Torey Tom MD [address] [place] [address] [place] [address] documented as of this encounter Visit Diagnoses Not on filedocumented in this encounter Care Teams Quality Engineer Medical Device Relationship Specialty Start Date End Date Edward Witt MD [address] [place] [address] PCP - General Internal Medicine 05/09/24 documented as of this encounter
--- OUTSIDE RECORDS SUMMARY | 2024-07-20 11:50 | XMS_ITS | Encounter Summary ---
Author Organization [facility] Address [address] [place] [address] Phone Care Team Providers Care Rubber Goods Cutter Finisher Name Role Phone Edward Witt MD Primary Care Provider [phone] Encounter Details Date Type Department Care Team (Late st Contact Info) Description 11/02/2023 Documentation Only [facility] [address] [place] [address] Emily Barnhart [address] [place] [address] Social History Tobacco Use Types [...] Visit [facility] [address] [place] [place] [address] Torey Tom MD [address] [place] [address] [place] [address] documented as of this encounter Visit Diagnoses Not on filedocumented in this encounter Care Teams Rubber Goods Cutter Finisher Relationship Specialty Start Date End Date Edward Witt MD [address] [place] [address] PCP - General Internal Medicine 05/09/24 documented as of this encounter
--- OUTSIDE RECORDS SUMMARY | 2024-07-20 11:50 | XMS_ITS | Encounter Summary ---
Author Organization [facility], Address [address] [place] [address] Phone Care Team Providers Care Php Architect Name Role Phone Edward Witt MD Primary Care Provider [phone] Encounter Details Date Type Department Care Team (Late st Contact Info) Description 03/24/2022 Documentation Only [facility] [address] [place] [phone] Shawn Johnson MD [facility] [place] [address] Social History Tobacco Use Types Packs/Day Years [...] Visit [facility] [address] [place] [address] Torey Tom MD [address] [place] [address] [place] [phone] documented as of this encounter Visit Diagnoses Not on filedocumented in this encounter Care Teams Php Architect Relationship Specialty Start Date End Date Edward Witt MD [facility] [address] [place] [address] PCP - General Internal Medicine 05/09/24 documented as of this encounter
== END 2024-07-20 10:21 | disposition home or self-care (01) ==
LOC: HO.XRAY 10:20
PROVIDERS: PCP Internal Medicine; Visit Provider Physician Assistant
DX: M77.8 Other enthesopathies, not elsewhere classified (principal); Z96.0 Presence of urogenital implants
CPT/HCPCS: 23350; 73040; 73201; Q9967

== ENCOUNTER → 2024-07-20 10:22 | Outpatient (BNV) | payer OTHER, SELFPAY | PROVIDERS: PCP Internal Medicine; Visit Provider Radiology Diagnostic Radiology | DX: M77.8 Other enthesopathies, not elsewhere classified (principal) | CPT/HCPCS: 23350; 73040 ==

== ENCOUNTER 2024-08-25 07:57 | Outpatient (AMB) | payer OTHER, SELFPAY ==
--- OUTSIDE RECORDS SUMMARY | 2024-08-25 08:00 | XMS_ITS | Encounter Summary ---
Author Organization [facility] Address [address] [place] [address] Phone Care Team Providers Care Cartography/Mapping Technician Name Role Phone Edward Witt MD Primary Care Provider [phone] Encounter Details Date Type Department Care Team (Late st Contact Info) Description 07/09/2023 Documentation Only [facility] [address] [place] [address] Emily Barnhart [address] [place] [address] Social History Tobacco Use Types [...] Visit [facility] [address] [place] [address] Torey Tom MD [address] [place] [address] [place] [address] documented as of this encounter Visit Diagnoses Not on filedocumented in this encounter Care Teams Cartography/Mapping Technician Relationship Specialty Start Date End Date Edward Witt MD [address] [place] [address] PCP - General Internal Medicine 05/09/24 documented as of this encounter
--- NOTE | 2024-08-25 08:01 | A.OFFPC_ITS ---
Vital Signs 08/25/24 08:04 Height 5 ft 7 in Weight 253 lb BMI 39.6 BP 112/68 Blood Pressure Location Rt brachial Position Sitting Respiration 16 Pulse 84 Pulse Source Pulse Oximeter Temp 97.7 F Temp Source Oral Pulse Oximetry (%) 97 Oxygen Delivery Method Room Air Intake Visit Reasons: 1 months f/up Assistive Technology Specialist Required: No Accompanied by: Self / Same As Patient Allergies No Known Allergies Allergy (Verified 08/25/24 08:04) Medication List - Last Reconciled 08/25/24 by Shawn Johnson MD amlodipine-benazepril 10-20 mg 1 cap PO DAILY aspirin (Adult Low Dose Aspirin) 81 mg PO DAILY atorvastatin 10 mg PO BEDTIME blood sugar diagnostic (FreeStyle Lite Strips) USE TO CHECK BLOOD SUGAR 3 TIMES DAILY: FASTING AND BEFORE MEALS cholecalciferol (vitamin D3) 25 mcg PO DAILY 90 days dorzolamide-timolol 22.3-6.8 mg/mL 1 drp ophthalmic (eye) BID dulaglutide (Trulicity) 4.5 mg (0.5 mL) subcut QWEEK 90 days flash glucose sensor (FreeStyle Ye 2 Sensor kit) Use with sensor to monitor blood sugar TID and as needed for s/s hypo/hyperglycemia fluticasone propionate 50 mcg/actuation (Allergy Relief (fluticasone)) 1 spray intranasal DAILY 30 days FreeStyle Ye 2 [place] (flash glucose scanning reader) Use with sensor to monitor blood sugar TID and as needed for s/s hypo/hyperglycemia NS FreeStyle Lite Meter (blood-glucose meter) Use to check blood sugar 4 times daily, fasting and AC NS insulin aspart U-100 (Novolog FlexPen U-100 Insulin aspart) 15 units (0.15 mL) subcut TID 90 days [insulin pen needles 4 times a day] lamotrigine 100 mg PO BID lancets (FreeStyle Lancets) Use to check blood sugar QID, fasting and AC Lantus Solostar U-100 Insulin (insulin glargine) subcutaneously 2 times a day; 50 units at night and 20 units in the morning 90 days NS levothyroxine 50 mcg PO DAILY lidocaine 5% (Lidoderm) 1 patch topical DAILY PRN MDD remove after 12 hours metoclopramide HCl (Reglan) 10 mg PO Q6H 7 days oxycodone-acetaminophen 5-325 mg (Percocet) 1 tab PO Q8H PRN 30 days pantoprazole 20 mg PO DAILY pen needle, diabetic (Ultra-Fine Pen Needle) qid Tobacco use date assessed: 08/25/24 Fall risk assessment: No Falls in past year Last assessed Fall Risk: 08/25/24 Dental Screening Dental Screen Date: 08/25/24 Did you have a dental visit in the last 12 months?: No Did you have a dental problem in the last 6 months where you did not have access to dental care?: No Was dental information given to patient?: Patient has dentist HPI 1 months f/up HPI Details History - The patient is a 64-year-old male pres enting for the refill of pain medication due to chronic osteoarthritis. Pain has been ongoing and managed with narcotic medication twice daily. - Blood glucose management is also a tj ority, with a previous A1c reported as 7.2% in April. The patient is on insulin therapy with reported morning blood glucose levels ranging between 73 to 82 mg/dL. The patient has been instructed to adjust the nighttime insulin dose due to low morning glucose levels. - The patient experiences dizziness and occasional weakness. - The patient is scheduled for a pain ma nagement appointment on the of the month where the pain physician intends to trial a nerve block procedure for pain relief. Medical History: - Osteoarthritis managed with narcotic m edication. - Diabetes Mellitus on insulin therapy a nd Trulicity. - Essential Hypertension, described as s table. - Hypothyroidism, described as stable. - Obesity. Medications: - Insulin, 15 units three times daily (r educed to 10 units at night as advised). - Trulicity 4.5 mg. - Narcotic medication twice daily for pa in management. Social History: - The patient mentions spending leisure time in the backyard and playing with his dog. - Emphasis on drinking ample water, alyson cially on hot days. Diagnostic Results: - Labs: A1c was 7.2% in April. - Reports of morning blood glucose level s at 73 to 82 mg/dL. Problem List - Osteoarthritis - Diabetes Mellitus - Essential Hypertension - Hypothyroidism - Obesity Patient Instructions - Continue taking prescribed medications as instructed. At just short-acting insulin dose to 10 units at night and continue 15 in the morning and 15 in the afternoon - Monitor blood glucose levels regularly . Continue Trulicity - Stay hydrated, especially during hot w eather. - Attend the pain management appointment on the for potential nerve block. - Percocet refill sent for a month 60 ta blets Review of Systems - General: No fever no chills - Neurological: No headaches no dizziness - Ear nose throat: No sore throat no hearing difficulty no ear pain - Cardiovascular: No syncope, no chest pain, no palpitations - Gastrointestinal: No nausea vomiting or diarrhea - Endocrine: No polyuria polydipsia no heat intolerance - Genitourinary: No dysuria , no blood in urine Physical Exam - General: No acute distress - HEENT: No acute findings - Neck: Supple - Respiratory system: Able to talk in f ull sentences, no audible wheeze - Cardiovascular: S1-S2 regular in rate and rhythm - Gastrointestinal: No pain - Extremities: No new findings - ARCHITECTURAL DESIGN LECTURER: Alert awake oriented x3 motor se nsory intact - Skin: Normal turgor PFSH Medical History Hypothyroid Glaucoma Chronic SI joint pain Lumbar radiculopathy Neuropathy BPH (benign prostatic hyperplasia) Elevated cholesterol GERD (gastroesophageal reflux disease) CKD (chronic kidney disease) Diabetes HTN (hypertension) Surgical History Hx of cataract surgery History of surgery on lower extremity History of shoulder surgery Family History Father Diabetes Hypertension Cancer Mother Hypertension Diabetes Social History Housing: House Patient Tobacco Use Status: Never used Tobacco e-Cigarette/Vaping Use: Never Used service: No Current occupational status: disabled Cognitive needs: No Hearing needs: No Vision needs: Yes Questionnaire PHQ-9 Over the last 2 weeks, how often have you been bothered by any of the following problems? 1. Little interest or pleasure in doing things: not at all 2. Feeling down, depressed, or hopeless: not at all 3. Trouble falling or staying asleep, or sleeping too much: not at all 4. Feeling tired or having little energy: not at all 5. Poor appetite or overeating: not at all 6. Feeling bad about yourself - or that you are a failure or have let yourself or your family down: not at all 7. Trouble concentrating on things, such as reading the newspaper or watching television: not at all 8. Moving or speaking so slowly that other people could have noticed. Or the opposite - being so fidgety or restless that you have been moving around a lot more than usual: not at all 9. Thoughts that you would be better off or of hurting yourself in some way: not at all Total score: 0 Depression Screening Interpretation: Negative Depression Screening Done: Yes 06167 - PHQ-9 Billing: Yes Source: Developed by Drs. Josiah Bailey, Gema Zimmerman, Brian Jo and colleagues, with an educational lovely from [employer]. Thrive Questionnaire Date Thrive assessed: 08/25/24 I am a: Patient What is your living situation today?: I have a steady place to live Within the past 12 months, did the food you bought not last and you didn't have the money to get more?: Sometimes True Within the past 12 months, did you worry whether your food would run out before you got money to buy more?: Often true Do you have trouble paying for medicines?: No Do you have trouble getting transportation to medical appointments?: Yes Do you have trouble paying your heating and electricity bill?: Yes Do you have trouble taking care of your child, family member or friend?: No Do you have trouble with day-to-day activities such as bathing, preparing meals, shopping, managing finances, etc.?: No Are you currently unemployed and looking for a job?: I choose not to answer this question Are you interested in more education?: I choose not to answer this question Please select the resources that you would like help with: None Currently or been in a relationship where the following occur: I choose not to answer THRIVE Score: 4 AUDIT C Alcohol Use Questionnaire (AUDIT-C) 1. How often do you have a drink containing alcohol?: 2-4 times a month 2. How many drinks containing alcohol do you have on a typical day when you are drinking?: 1 or 2 3. How often do you have six or more drinks on one occasion?: Never Total Score: 2 AMINATA-7 AMB Questionnaire AMINATA-7 Feeling nervous, anxious, or on edge: 1 = Several days Not being able to stop or control worryin = Several days Worrying too much about different things: 3 = Nearly every day Trouble relaxin = Nearly every day Being so restless that it is hard to sit still: 3 = Nearly every day Becoming easily annoyed or irritable: 3 = Nearly every day Feeling afraid as if something awful might happen: 1 = Several days Total AMINATA-7 score (0-4 normal; 5-9 mild; 10-14 moderate; 15-21 severe): 15 Source: Developed by Drs. Josiah Bailey, Gema Zimmerman, Brian Jo and colleagues, with an educational lovely from [employer]. Physical exam (Primary Care) Vital Signs: Last Vital Signs Temp 97.7 F 08/25/24 08:04 Pulse 84 08/25/24 08:04 Resp 16 08/25/24 08:04 BP 112/68 08/25/24 08:04 Pulse Ox 97 08/25/24 08:04 Oxygen Delivery Method Room Air 08/25/24 08:04 BMI result Body Mass Index 39.6 Tobacco/Smoking Status: Tobacco use Status Tobacco use date assessed 08/25/24 08/25/24 08:11 Patient Tobacco Use Status Never used Tobacco 08/25/24 08:03 e-Cigarette/Vaping Use Never Used 08/25/24 08:03 PHQ-9: PHQ-9 Score PHQ-9: Total score 0 08/25/24 08:47 Depression Screening Interpretation: Negative Thrive Assessment: Date of Thrive Assessment Date Thrive assessed 08/25/24 08/25/24 08:11 Currently or been in a relationship where the following occur: I choose not to answer Coding Level of Care Code Est Pt Level 4 (95099) Complex EM visit Add On G2211 Diagnoses 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 E10.3553 Diabetes mellitus complication status: with ophthalmic complications Diabetes mellitus complication detail: with diabetic retinopathy Diabetic retinopathy severity: with proliferative retinopathy Proliferative retinopathy type: stable Laterality: bilateral Hypertension, essential I10 Osteoarthritis involving multiple joints on both sides of body M15.9 Chronic narcotic dependence F11.20 Right shoulder tendinitis M77.8 Left shoulder tendonitis M77.8 Pain management R52 Additional Codes PHQ-9 - 14478 - PHQ-9 Billing: Yes ([id number]) Assessment & Plan Assessment & Plan (1) Insulin dependent type 1 diabetes mellitus: Code(s): E10.9 - Type 1 diabetes mellitus without complications Category: Medical Qualifiers: Diabetes mellitus complication status: with ophthalmic complications Diabetes mellitus complication detail: with diabetic retinopathy Diabetic retinopathy severity: with proliferative retinopathy Proliferative retinopathy type: stable Laterality: bilateral Qualified Code(s): E10.3553 - Type 1 diabetes mellitus with stable proliferative diabetic retinopathy, bilateral (2) Hypertension, essential: Code(s): I10 - Essential (primary) hypertension Category: Medical (3) Osteoarthritis involving multiple joints on both sides of body: Code(s): M15.9 - Polyosteoarthritis, unspecified Category: Medical (4) Chronic narcotic dependence: Code(s): F11.20 - Opioid dependence, uncomplicated Category: Medical (5) Right shoulder tendinitis: Code(s): M77.8 - Other enthesopathies, not elsewhere classified Category: Medical (6) Left shoulder tendonitis: Code(s): M77.8 - Other enthesopathies, not elsewhere classified Category: Medical (7) Pain management: Code(s): R52 - Pain, unspecified Category: Medical Plan History - The patient is a 64-year-old male presenting for the refill of pain medication due to chronic osteoarthritis. Pain has been ongoing and managed with narcotic medication twice daily. - Blood glucose management is also a priority, with a previous A1c reported as 7.2% in April. The patient is on insulin therapy with reported morning blood glucose levels ranging between 73 to 82 mg/dL. The patient has been instructed to adjust the nighttime insulin dose due to low morning glucose levels. - The patient experiences dizziness and occasional weakness. - The patient is scheduled for a pain management appointment on the of the month where the pain physician intends to trial a nerve block procedure for pain relief. Medical History: - Osteoarthritis managed with narcotic medication. - Diabetes Mellitus on insulin therapy and Trulicity. - Essential Hypertension, described as stable. - Hypothyroidism, described as stable. - Obesity. Medications: - Insulin, 15 units three times daily (reduced to 10 units at night as advised). - Trulicity 4.5 mg. - Narcotic medication twice daily for pain management. Social History: - The patient mentions spending leisure time in the backyard and playing with his dog. - Emphasis on drinking ample water, especially on hot days. Diagnostic Results: - Labs: A1c was 7.2% in April. - Reports of morning blood glucose levels at 73 to 82 mg/dL. Problem List - Osteoarthritis - Diabetes Mellitus - Essential Hypertension - Hypothyroidism - Obesity Patient Instructions - Continue taking prescribed medications as instructed. At just short-acting insulin dose to 10 units at night and continue 15 in the morning and 15 in the afternoon - Monitor blood glucose levels regularly. Continue Trulicity - Stay hydrated, especially during hot weather. - Attend the pain management appointment on the for potential nerve block. - Percocet refill sent for a month 60 tablets Medications: New oxycodone-acetaminophen 5-325 mg (Percocet) Partial Fill upon patient request. 1 tab PO .B.i.d. 30 days PRN 60 tabs 0RF pain Refilled oxycodone-acetaminophen 5-325 mg (Percocet) Partial Fill upon patient request. 1 tab PO Q8H 30 days PRN 60 tabs 0RF pain M13.0 - Polyarthritis, unspecified, M25.511 - Pain in right shoulder, M47.816 - Spondylosis without myelopathy or radiculopathy, lumbar region
[2024-08-25 08:04] VITALS: BP 112/68; PULSE 84; RESP 16; TEMP 36.5; O2SAT 97; BMI 39.6
== END 2024-08-25 08:20 | disposition home or self-care (01) ==
LOC: HO.HMCC 07:58
PROVIDERS: PCP Internal Medicine; Visit Provider Internal Medicine
DX: E10.3553 Type 1 diabetes mellitus with stable proliferative diabetic retinopathy, bilateral (principal); I10 Essential (primary) hypertension; M15.9 Polyosteoarthritis, unspecified; F11.20 Opioid dependence, uncomplicated; M77.8 Other enthesopathies, not elsewhere classified; R52 Pain, unspecified

== ENCOUNTER → 2024-08-25 07:57 | Outpatient (BNVA) | payer OTHER, SELFPAY | PROVIDERS: PCP Internal Medicine; Visit Provider Internal Medicine | DX: I10 Essential (primary) hypertension (principal); E03.9 Hypothyroidism, unspecified; E10.3553 Type 1 diabetes mellitus with stable proliferative diabetic retinopathy, bilateral; M15.9 Polyosteoarthritis, unspecified; F11.20 Opioid dependence, uncomplicated; M77.8 Other enthesopathies, not elsewhere classified; R52 Pain, unspecified; M47.816 Spondylosis without myelopathy or radiculopathy, lumbar region; Z79.4 Long term (current) use of insulin; Z79.899 Other long term (current) drug therapy | CPT/HCPCS: 96127; 99212 ==

== ENCOUNTER 2024-09-12 06:26 | Outpatient (REF) | payer OTHER, SELFPAY ==
--- OUTSIDE RECORDS SUMMARY | 2024-09-12 06:29 | XMS_ITS | Encounter Summary ---
Author Organization [facility] Address [address] [place] [address] Phone Care Team Providers Care Filer Metal Patterns Name Role Phone Edward Witt MD Primary Care Provider [phone] Encounter Details Date Type Department Care Team (Late st Contact Info) Description 07/09/2023 Documentation Only [facility] [address] [place] [address] Emily Barnhart [address] [place] [address] Social History Tobacco Use Types [...] [facility] [address] [place] [address] Torey Tom MD [address] [place] [address] [place] [address] documented as of this encounter Visit Diagnoses Not on filedocumented in this encounter Care Teams Filer Metal Patterns Relationship Specialty Start Date End Date Edward Witt MD [address] [place] [address] PCP - General Internal Medicine 05/09/24 documented as of this encounter
== END 2024-09-12 06:27 | disposition home or self-care (01) ==
LOC: CF 06:26
PROVIDERS: Visit Provider Anesthesiology
DX: M19.012 Primary osteoarthritis, left shoulder (principal)
CPT/HCPCS: 64415; J2795

== ENCOUNTER 2024-09-12 13:04 | Outpatient (AMB) | payer OTHER, SELFPAY ==
[2024-09-12 13:11] VITALS: BP 108/70; PULSE 99; RESP 16; O2SAT 97
--- NOTE | 2024-09-12 13:11 | MHC.OFFVIS ---
Vital Signs 09/12/24 13:11 BP 108/70 Blood Pressure Location Rt radial Position Sitting Respiration 16 Pulse 99 Pulse Source Pulse Oximeter Pulse Oximetry (%) 97 Oxygen Delivery Method Room Air Intake Visit Reasons: LEFT DIAGNOSTIC INTERSCALENE NERVE BLOCK Allergies No Known Allergies Allergy (Verified 08/25/24 08:04) PFSH Medical History Hypothyroid Glaucoma Chronic SI joint pain Lumbar radiculopathy Neuropathy BPH (benign prostatic hyperplasia) Elevated cholesterol GERD (gastroesophageal reflux disease) CKD (chronic kidney disease) Diabetes HTN (hypertension) Surgical History Hx of cataract surgery History of surgery on lower extremity History of shoulder surgery Family History Father Diabetes Hypertension Cancer Mother Hypertension Diabetes Social History Housing: House Patient Tobacco Use Status: Never used Tobacco e-Cigarette/Vaping Use: Never Used service: No Current occupational status: disabled Cognitive needs: No Hearing needs: No Vision needs: Yes Physical Exam Vital Signs: Last Vital Signs Pulse 99 09/12/24 13:11 Resp 16 09/12/24 13:11 BP 108/70 09/12/24 13:11 Pulse Ox 97 09/12/24 13:11 Oxygen Delivery Method Room Air 09/12/24 13:11 Assessment & Plan Assessment & Plan (1) Arthritis of left glenohumeral joint: Code(s): M19.012 - Primary osteoarthritis, left shoulder Category: Medical (2) Left shoulder pain: Code(s): M25.512 - Pain in left shoulder Category: Medical Plan Interscalene brachial plexus ultrasound-guided injection on the left. Her asthma is very pleasant 64 years old gentleman who is suffering from severe intractable shoulder pain on the left. We attempted to perform suprascapular nerve block which did not alleviate pain of the patient. Today he came to the operating room to attempt the interscalene brachial plexus injection in the attempt to stop his pain and find appropriate location to stimulate his nerves. After obtaining informed consent were risks of bleeding infection and pneumothorax were explained to the patient, he was brought to the examination bed and positioned supine on the bed with elevated torso and the head. He was requested to turn his head away to the right, the anterior lateral left neck and anterior surface of the left chest were prepped with ChloraPrep and draped with sterile self adhesive utility towels. Sterilely draped ultrasound probe was brought over the operating field and picture of the brachial plexus in the interscalene groove was demonstrated on the screen. 22 gauge 100 mm echo stim needle was inserted through the skin extra anatomically and advanced to were the brachial plexus under live ultrasound view. Normal saline was injected after aspiration and aspiration was negative for blood. We observed spread of the normal saline in normal fashion. After that 10 cc of ropivacaine 0.5% was injected with frequent aspiration into the needle. Upon completion of the injection needle was withdrawn and sterile Band-Aid was applied. Patient tolerated the procedure well. He was given pain diary to monitor the level of his pain in respond to this procedure. Orders: Orders FL guidance in treatment room Today M25.512 - Pain in left shoulder Coding Level of Care Code Procedure Only Diagnoses Arthritis of left glenohumeral joint M19.012 Left shoulder pain M25.512
--- OUTSIDE RECORDS SUMMARY | 2024-09-12 14:52 | XMS_ITS | Encounter Summary ---
Author Organization [facility] Address [address] [place] [address] Phone Care Team Providers Care Drilling Supervisor Name Role Phone Edward Witt MD Primary Care Provider [phone] Encounter Details Date Type Department Care Team (Late st Contact Info) Description 07/09/2023 Documentation Only [facility] [address] [place] [address] Emily Barnhart [address] [place] [address] Social History Tobacco Use Types [...] Visit [facility] [address] [place] [address] Torey Tom MD [address] [place] [address] [place] [address] documented as of this encounter Visit Diagnoses Not on filedocumented in this encounter Care Teams Drilling Supervisor Relationship Specialty Start Date End Date Edward Witt MD [address] [place] [address] PCP - General Internal Medicine 05/09/24 documented as of this encounter
== END 2024-09-12 13:59 | disposition home or self-care (01) ==
LOC: HO.PMCPRC 13:04
PROVIDERS: PCP Internal Medicine; Visit Provider Anesthesiology
DX: M19.012 Primary osteoarthritis, left shoulder (principal); M25.512 Pain in left shoulder
CPT/HCPCS: 64415; 76942

== ENCOUNTER 2024-09-14 13:27 | Outpatient (AMB) | payer OTHER, SELFPAY ==
--- NOTE | 2024-09-14 13:31 | MHC.OFFVIS ---
Vital Signs 09/14/24 13:33 Height 5 ft 7 in Weight 250 lb BMI 39.2 BP 117/65 Blood Pressure Location Rt brachial Position Sitting Respiration 20 Pulse 87 Pulse Source Pulse Oximeter Pulse Oximetry (%) 97 Oxygen Delivery Method Room Air Intake Visit Reasons: LEFT DIAGNOSTIC INTERSCALENE NERVE BLOCK Hotel [employer] Dining Room Cashier Required: No Allergies No Known Allergies Allergy (Verified 09/14/24 13:31) HPI Comments Details: Brian is in my office today after interscalene nerve block. On the background of improved pain in the lumbar area he reports severe pain in the anterior lateral and anterior surface of the shoulder. He was diagnosed with glenohumeral and acromioclavicular arthritis. Unfortunately combine glenohumeral and acromioclavicular steroid injections resulted in pain aggravation. Considering the anatomy of his pain I recommended him to go for interscalene nerve block. Today 2 days after the interscalene nerve block - He reported less than 50% pain improvement after left diagnostic interscalene nerve block. Unfortunately I can not offer him any peripheral nerve stimulation. The insurance company will not be covering the procedure with this pain decrease. I recommend him to consider to go to [facility] pain management. I also will refer him to Orthopedic surgery in [facility] for potential total shoulder replacement. Prior: Diagnostic medial branch block L3 L4-5 resulted in not significant improvement. Diagnostic sacroiliac joint block resulted in 80% pain improvement for the next 6 hours after the procedure. SI joint fusion was taken into consideration and was planned however his insurance company requested us to perform 2nd diagnostic versus therapeutic sacroiliac joint block. After performance of the block patient reported pain reduction more than 50%. After that we performed diagnostic medical branch block based on CT scan changes and I went 1 level higher L2-L3 L4 medial branches. He reported pain improvement from 8/10 to 1/10 for 24 hours after the procedure. This is 90% pain improvement. I recommended him Sprint PNS. He received the procedure on 04/27/2023. He reports today that he does not feel stimulation for 2 days, however when I offered him to remove the dislodged stimulating lead see as above and replace it with new one he stated that he does not like sprint PNS. He requests something more permanent in nature. I gave him [employer] brochure to read. [facility] Medical History Hypothyroid Glaucoma Chronic SI joint pain Lumbar radiculopathy Neuropathy BPH (benign prostatic hyperplasia) Elevated cholesterol GERD (gastroesophageal reflux disease) CKD (chronic kidney disease) Diabetes HTN (hypertension) Surgical History Hx of cataract surgery History of surgery on lower extremity History of shoulder surgery Family History Father Diabetes Hypertension Cancer Mother Hypertension Diabetes Social History Housing: House Patient Tobacco Use Status: Never used Tobacco e-Cigarette/Vaping Use: Never Used service: No Current occupational status: disabled Cognitive needs: No Hearing needs: No Vision needs: Yes Review of Systems Const All systems reviewed & are unremarkable except as noted in HPI and below Neuro Denies Sensory deficit (Neuro) Physical Exam Vital Signs: Last Vital Signs Pulse 87 09/14/24 13:33 Resp 20 09/14/24 13:33 BP 117/65 09/14/24 13:33 Pulse Ox 97 09/14/24 13:33 Oxygen Delivery Method Room Air 09/14/24 13:33 BMI result Body Mass Index 39.2 General: Appears afebrile. Alert and oriented. Mood and affect appropriate. Follows and participates in conversation appropriately. Respiratory effort is unlabored. Able to transition from sit to stand unassisted. Uses cane with ambulation. Ambulates with bilaterally normal heel strike and toe off. Back/Spine/Pelvis Other: Patient is able to walk and stand on heels and tip toes with mild difficulties on the right due to pain. Demonstrating good motor tone bilaterally. Antalgic gait, with mild limping. Can flex forward to 50-60 degrees and extend to 5-10 degrees before experiencing lumbar pain. Increasing pain with lumbar extension. Demonstrates 5/5 strength of quadriceps bilaterally as well as flexion/dorsiflexion of bilateral feet against resistance. 2+ pedal pulses bilaterally. Straight leg rise with dorsiflexion negative bilaterally. +2 patellar and achilles reflexes bilaterally. Facet loading test positive bilaterally. Ramya signs + bilaterally. Dylan?s and Stinchfield tests are negative bilaterally. No groin pain with I/E hip rotations. Back: back tenderness Cervical Spine: cervical ROM normal, cervical muscular tenderness, No Cervical spine tenderness and No step off deformity Thoracic/Lumbar Spine: thoracic and lumbar spine normal to inspection, No Thoracic/lumbar spine scar(s), Lasegue's sign negative, straight leg raise negative bilaterally, pain with thoraco-lumbar ROM, paraspinal muscle tenderness, thoraco-lumbar ROM limited, thoracic spinal tenderness and lumbar spinal tenderness at L4 and at L5 Pelvis: buttock tenderness on the right Sacroiliac joints: bilaterally tender to palpation Neuro Other: Decreased sensation to dorsal and plantar surfaces of bilateral feet. General: moves all extremities and no focal motor deficits Cognition (Neuro): normal cognition Motor exam (neuro): no tremor noted and Motor abnormalities not present Sensory Exam: No Sensory deficit (Neuro) Extrem General: Yes capillary refill normal, Yes no clubbing, cyanosis or edema and Yes no calf tenderness Right upper extremity: shoulder/upper arm (Limited ROM due to pain.) Details: normal to inspection and tenderness Location: of the A-C joint; no swelling, no ecchymosis and no crepitus Results Reviewed Results Reviewed: XR SHOULDER, LEFT CLINICAL INFORMATION: shoulder pain COMPARISON: 03/10/2024. TECHNIQUE: AP external rotation, Grashey, scapular Y, and axillary views of the left shoulder. FINDINGS: No fracture, dislocation, or suspicious bone lesion. Normal alignment. Moderate spurring of the AC joint predominantly superiorly. Mild degenerative arthritis in the glenohumeral joint. Neutral lateral acromion with a small subacromial spur. No significant subacromial narrowing. Remainder the bones and soft tissues appear normal. IMPRESSION: No acute findings left shoulder. Degenerative changes. Assessment & Plan Assessment & Plan (1) Left shoulder pain: Code(s): M25.512 - Pain in left shoulder Category: Medical (2) Primary osteoarthritis, left shoulder: Code(s): M19.012 - Primary osteoarthritis, left shoulder Category: Medical (3) Sacroiliac joint pain: Code(s): M53.3 - Sacrococcygeal disorders, not elsewhere classified Category: Medical (4) Sacroiliac joint dysfunction of left side: Code(s): M53.3 - Sacrococcygeal disorders, not elsewhere classified Category: Medical (5) Myofascial pain syndrome: Code(s): M79.18 - Myalgia, other site Category: Medical (6) Spondylosis of lumbar region without myelopathy or radiculopathy: Code(s): M47.816 - Spondylosis without myelopathy or radiculopathy, lumbar region Category: Medical (7) Arthritis of left glenohumeral joint: Code(s): M19.012 - Primary osteoarthritis, left shoulder Category: Medical (8) Arthritis of left acromioclavicular joint: Code(s): M19.012 - Primary osteoarthritis, left shoulder Category: Medical Plan The patient's pain is mostly anterior anterior lateral. Interscalene nerve block resulted in no improvement. I will refer him to [facility] for orthopedics consult as well as management consult. Next appointment as needed. Orders: Referrals Pain Management Referral M19.012 - Primary osteoarthritis, left shoulder, M25.512 - Pain in left shoulder Orthopedics Referral M19.012 - Primary osteoarthritis, left shoulder, M25.512 - Pain in left shoulder Coding Level of Care Code Est Pt Level 3 (69023) Diagnoses Left shoulder pain M25.512 Primary osteoarthritis, left shoulder M19.012 Sacroiliac joint pain M53.3 Sacroiliac joint dysfunction of left side M53.3 Myofascial pain syndrome M79.18 Spondylosis of lumbar region without myelopathy or radiculopathy M47.816 Arthritis of left glenohumeral joint M19.012 Arthritis of left acromioclavicular joint M19.012
[2024-09-14 13:33] VITALS: BP 117/65; PULSE 87; RESP 20; O2SAT 97; BMI 39.2
--- OUTSIDE RECORDS SUMMARY | 2024-09-14 16:14 | XMS_ITS | Encounter Summary ---
Author Organization [facility] Address [address] [place] [address] Phone Care Team Providers Care Corporate Compliance Director Name Role Phone Edward Witt MD Primary Care Provider [phone] Encounter Details Date Type Department Care Team (Late st Contact Info) Description 07/09/2023 Documentation Only [facility] [address] [place] [address] Emily Barnhart [address] [place] [address] Social History Tobacco Use Types [...] Visit [facility] [address] [place] [address] Torey Tom MD [address] [place] [address] [place] [address] documented as of this encounter Visit Diagnoses Not on filedocumented in this encounter Care Teams Corporate Compliance Director Relationship Specialty Start Date End Date Edward Witt MD [address] [place] [address] PCP - General Internal Medicine 05/09/24 documented as of this encounter
== END 2024-09-14 13:49 | disposition home or self-care (01) ==
PROVIDERS: PCP Internal Medicine; Visit Provider Anesthesiology
DX: M25.512 Pain in left shoulder (principal); M19.012 Primary osteoarthritis, left shoulder; M53.3 Sacrococcygeal disorders, not elsewhere classified; M79.18 Myalgia, other site; M47.816 Spondylosis without myelopathy or radiculopathy, lumbar region
CPT/HCPCS: 99213

== ENCOUNTER → 2024-09-14 13:27 | Outpatient (BNVA) | payer OTHER, SELFPAY | PROVIDERS: PCP Internal Medicine; Visit Provider Anesthesiology | DX: M19.012 Primary osteoarthritis, left shoulder (principal); M25.512 Pain in left shoulder; M53.3 Sacrococcygeal disorders, not elsewhere classified; M79.18 Myalgia, other site; M47.816 Spondylosis without myelopathy or radiculopathy, lumbar region | CPT/HCPCS: 99212 ==

== ENCOUNTER 2024-09-20 08:48 | Outpatient (AMB) | payer OTHER, SELFPAY ==
[2024-09-20 08:53] VITALS: BP 114/70; PULSE 96; TEMP 36.4; O2SAT 97; BMI 37.5
--- NOTE | 2024-09-20 08:53 | A.OFFPC_ITS ---
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 Allergies No Known Allergies Allergy (Verified 09/20/24 08:57) Medication List - Last Reconciled 09/20/24 by Shawn Johnson MD amlodipine-benazepril 10-20 mg 1 cap PO DAILY aspirin (Adult Low Dose Aspirin) 81 mg PO DAILY atorvastatin 10 mg PO BEDTIME blood sugar diagnostic (FreeStyle Lite Strips) USE TO CHECK BLOOD SUGAR 3 TIMES DAILY: FASTING AND BEFORE MEALS cholecalciferol (vitamin D3) 25 mcg PO DAILY 90 days dorzolamide-timolol 22.3-6.8 mg/mL 1 drp ophthalmic (eye) BID dulaglutide (Trulicity) 4.5 mg (0.5 mL) subcut QWEEK 90 days flash glucose sensor (FreeStyle Ye 2 Sensor kit) Use with sensor to monitor blood sugar TID and as needed for s/s hypo/hyperglycemia fluticasone propionate 50 mcg/actuation (Allergy Relief (fluticasone)) 1 spray intranasal DAILY 30 days FreeStyle Ye 2 Oden (flash glucose scanning reader) Use with sensor to monitor blood sugar TID and as needed for s/s hypo/hyperglycemia NS FreeStyle Lite Meter (blood-glucose meter) Use to check blood sugar 4 times daily, fasting and AC NS insulin aspart U-100 (Novolog FlexPen U-100 Insulin aspart) 15 units (0.15 mL) subcut TID 90 days [insulin pen needles 4 times a day] lamotrigine 100 mg PO BID lancets (FreeStyle Lancets) Use to check blood sugar QID, fasting and AC Lantus Solostar U-100 Insulin (insulin glargine) subcutaneously 2 times a day; 50 units at night and 20 units in the morning 90 days NS levothyroxine 50 mcg PO DAILY lidocaine 5% (Lidoderm) 1 patch topical DAILY PRN MDD remove after 12 hours metoclopramide HCl (Reglan) 10 mg PO Q6H 7 days oxycodone-acetaminophen 5-325 mg (Percocet) 1 tab PO Q8H PRN 30 days pantoprazole 20 mg PO DAILY pen needle, diabetic (Ultra-Fine Pen Needle) qid Tobacco use date assessed: 09/20/24 Dental Screening Dental Screen Date: 08/25/24 Did you have a dental visit in the last 12 months?: Yes Did you have a dental problem in the last 6 months where you did not have access to dental care?: No Was dental information given to patient?: Patient has dentist HPI 4 weeks f/up need A1C HPI Details History - The patient is a 64-year-old male pres enting for the refill of pain medication Patient suffers from osteoarthritis multiple joints Pain has been ongoing and managed with narcotic medication twice daily. He has seen pain specialist, and has gotten treatment in his left shoulder through them but patient says that it makes it worse So he known want to go there anymore currently he is taking Percocet which is helping up to 2 times a day - Blood glucose management is also a tj ority, with a previous A1c reported as 7.2% in April. The patient is on insulin therapy blood sugars are controlled Medical History: - Osteoarthritis managed with narcotic m edication. - Diabetes Mellitus on insulin therapy a nd Trulicity. - Essential Hypertension, described as s table. - Hypothyroidism. - Obesity. Medications: - Insulin, 15 units three times daily (r educed to 10 units at night as advised). - Trulicity 4.5 mg. - Narcotic medication twice daily for pa in management. Social History: - The patient mentions spending leisure time in the backyard and playing with his dog. - Emphasis on drinking ample water, alyson cially on hot days. Problem List - Osteoarthritis - Diabetes Mellitus - Essential Hypertension - Hypothyroidism - Obesity Patient Instructions - Continue taking prescribed medications as instructed. Continue insulin - Monitor blood glucose levels regularly . Continue Trulicity - Stay hydrated, especially during hot w eather. Try to lose some weight - Percocet refill sent for a month 60 ta blets Pain contract signed Review of Systems - General: No fever no chills - Neurological: No headaches no dizziness - Ear nose throat: No sore throat no hearing difficulty no ear pain - Cardiovascular: No syncope, no chest pain, no palpitations - Gastrointestinal: No nausea vomiting or diarrhea - Endocrine: No polyuria polydipsia no heat intolerance - Genitourinary: No dysuria , no blood in urine Physical Exam General: No acute distress HEENT: No acute findings Neck: Supple Respiratory system: Able to talk in full sentences, no audible wheeze Cardiovascular: S1-S2 regular in rate and rhythm Gastrointestinal: Pain in shoulder Extremities: No new findings BOLT SORTER: Alert awake oriented x3 motor sensory intact Skin: Normal turgor PFSH Medical History Hypothyroid Glaucoma Chronic SI joint pain Lumbar radiculopathy Neuropathy BPH (benign prostatic hyperplasia) Elevated cholesterol GERD (gastroesophageal reflux disease) CKD (chronic kidney disease) Diabetes HTN (hypertension) Surgical History Hx of cataract surgery History of surgery on lower extremity History of shoulder surgery Family History Father Diabetes Hypertension Cancer Mother Hypertension Diabetes Social History Housing: House Patient Tobacco Use Status: Never used Tobacco e-Cigarette/Vaping Use: Never Used service: No Current occupational status: disabled Cognitive needs: No Hearing needs: No Vision needs: Yes Questionnaire PHQ-9 Over the last 2 weeks, how often have you been bothered by any of the following problems? 1. Little interest or pleasure in doing things: not at all 2. Feeling down, depressed, or hopeless: not at all 3. Trouble falling or staying asleep, or sleeping too much: not at all 4. Feeling tired or having little energy: not at all 5. Poor appetite or overeating: not at all 6. Feeling bad about yourself - or that you are a failure or have let yourself or your family down: not at all 7. Trouble concentrating on things, such as reading the newspaper or watching television: not at all 8. Moving or speaking so slowly that other people could have noticed. Or the opposite - being so fidgety or restless that you have been moving around a lot more than usual: not at all 9. Thoughts that you would be better off or of hurting yourself in some way: not at all Total score: 0 Depression Screening Interpretation: Negative Depression Screening Done: Yes 16859 - PHQ-9 Billing: Yes Source: Developed by Drs. Josiah Bailey, Gema Zimmerman, Brian Jo and colleagues, with an educational lovely from [employer]. Thrive Questionnaire Date Thrive assessed: 09/20/24 I am a: Patient What is your living situation today?: I have a steady place to live Within the past 12 months, did the food you bought not last and you didn't have the money to get more?: Sometimes True Within the past 12 months, did you worry whether your food would run out before you got money to buy more?: Often true Do you have trouble paying for medicines?: No Do you have trouble getting transportation to medical appointments?: Yes Do you have trouble paying your heating and electricity bill?: Yes Do you have trouble taking care of your child, family member or friend?: No Do you have trouble with day-to-day activities such as bathing, preparing meals, shopping, managing finances, etc.?: No Are you currently unemployed and looking for a job?: I choose not to answer this question Are you interested in more education?: I choose not to answer this question Please select the resources that you would like help with: None Currently or been in a relationship where the following occur: I choose not to answer THRIVE Score: 4 Physical exam (Primary Care) Vital Signs: Last Vital Signs Temp 97.5 F 09/20/24 08:53 Pulse 96 09/20/24 08:53 BP 114/70 09/20/24 08:53 Pulse Ox 97 09/20/24 08:53 Oxygen Delivery Method Room Air 09/20/24 08:53 BMI result Body Mass Index 37.5 Tobacco/Smoking Status: Tobacco use Status Tobacco use date assessed 09/20/24 09/20/24 09:01 Patient Tobacco Use Status Never used Tobacco 09/20/24 09:01 e-Cigarette/Vaping Use Never Used 09/20/24 09:01 PHQ-9: PHQ-9 Score PHQ-9: Total score 0 09/20/24 09:09 Depression Screening Interpretation: Negative Thrive Assessment: Date of Thrive Assessment Date Thrive assessed 09/20/24 09/20/24 09:01 Currently or been in a relationship where the following occur: I choose not to answer Coding Level of Care Code Est Pt Level 4 (64281) Complex EM visit Add On G2211 Diagnoses Chronic left shoulder pain M25.512; G89.29 Chronicity: chronic Primary osteoarthritis, left shoulder M19.012 Sacroiliac joint pain M53.3 Sacroiliac joint dysfunction of left side M53.3 Myofascial pain syndrome M79.18 Spondylosis of lumbar region without myelopathy or radiculopathy M47.816 Arthritis of left glenohumeral joint M19.012 Arthritis of left acromioclavicular joint M19.012 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 E10.3553 Diabetes mellitus complication status: with ophthalmic complications Diabetes mellitus complication detail: with diabetic retinopathy Diabetic retinopathy severity: with proliferative retinopathy Proliferative retinopathy type: stable Laterality: bilateral Hypertension, essential I10 Chronic narcotic dependence F11.20 Pain management R52 Additional Codes PHQ-9 - 61641 - PHQ-9 Billing: Yes ([id number]) Assessment & Plan Assessment & Plan (1) Left shoulder pain: Code(s): M25.512 - Pain in left shoulder Category: Medical Qualifiers: Chronicity: chronic Qualified Code(s): M25.512 - Pain in left shoulder; G89.29 - Other chronic pain (2) Primary osteoarthritis, left shoulder: Code(s): M19.012 - Primary osteoarthritis, left shoulder Category: Medical (3) Sacroiliac joint pain: Code(s): M53.3 - Sacrococcygeal disorders, not elsewhere classified Category: Medical (4) Sacroiliac joint dysfunction of left side: Code(s): M53.3 - Sacrococcygeal disorders, not elsewhere classified Category: Medical (5) Myofascial pain syndrome: Code(s): M79.18 - Myalgia, other site Category: Medical (6) Spondylosis of lumbar region without myelopathy or radiculopathy: Code(s): M47.816 - Spondylosis without myelopathy or radiculopathy, lumbar region Category: Medical (7) Arthritis of left glenohumeral joint: Code(s): M19.012 - Primary osteoarthritis, left shoulder Category: Medical (8) Arthritis of left acromioclavicular joint: Code(s): M19.012 - Primary osteoarthritis, left shoulder Category: Medical (9) Insulin dependent type 1 diabetes mellitus: Code(s): E10.9 - Type 1 diabetes mellitus without complications Category: Medical Qualifiers: Diabetes mellitus complication status: with ophthalmic complications Diabetes mellitus complication detail: with diabetic retinopathy Diabetic retinopathy severity: with proliferative retinopathy Proliferative retinopathy type: stable Laterality: bilateral Qualified Code(s): E10.3553 - Type 1 diabetes mellitus with stable proliferative diabetic retinopathy, bilateral (10) Hypertension, essential: Code(s): I10 - Essential (primary) hypertension Category: Medical (11) Chronic narcotic dependence: Code(s): F11.20 - Opioid dependence, uncomplicated Category: Medical (12) Pain management: Code(s): R52 - Pain, unspecified Category: Medical Plan History - The patient is a 64-year-old male presenting for the refill of pain medication , this is an ongoing care Patient suffers from osteoarthritis multiple joints Pain has been ongoing and managed with narcotic medication twice daily. He has seen pain specialist, and has gotten treatment in his left shoulder through them but patient says that it makes it worse So he known want to go there anymore currently he is taking Percocet which is helping up to 2 times a day - Blood glucose management is also a priority, with a previous A1c reported as 7.2% in April. The patient is on insulin therapy blood sugars are controlled Medical History: - Osteoarthritis managed with narcotic medication. - Diabetes Mellitus on insulin therapy and Trulicity. - Essential Hypertension, described as stable. - Hypothyroidism. - Obesity. Medications: - Insulin, 15 units three times daily (reduced to 10 units at night as advised). - Trulicity 4.5 mg. - Narcotic medication twice daily for pain management. Social History: - The patient mentions spending leisure time in the backyard and playing with his dog. - Emphasis on drinking ample water, especially on hot days. Problem List - Osteoarthritis - Diabetes Mellitus - Essential Hypertension - Hypothyroidism - Obesity Patient Instructions - Continue taking prescribed medications as instructed. Continue insulin - Monitor blood glucose levels regularly. Continue Trulicity - Stay hydrated, especially during hot weather. Try to lose some weight - Percocet refill sent for a month 60 tablets Pain contract signed Medications: Refilled oxycodone-acetaminophen 5-325 mg (Percocet) Partial Fill upon patient request. 1 tab PO Q8H PRN 60 tabs 0RF pain 30 days M13.0 - Polyarthritis, unspecified, M25.511 - Pain in right shoulder, M47.816 - Spondylosis without myelopathy or radiculopathy, lumbar region
--- OUTSIDE RECORDS SUMMARY | 2024-09-20 08:53 | XMS_ITS | Encounter Summary ---
Author Organization [facility] Address [address] [place] [address] Phone Care Team Providers Care Congressional Representative Name Role Phone Edward Witt MD Primary Care Provider [phone] Encounter Details Date Type Department Care Team (Late st Contact Info) Description 07/09/2023 Documentation Only [facility] [address] [place] [address] Emily Barnhart [address] [place] [address] Social History Tobacco Use Types [...] [facility] [address] [place] [address] Torey Tom MD [address] [place] [address] [place] [address] documented as of this encounter Visit Diagnoses Not on filedocumented in this encounter Care Teams Congressional Representative Relationship Specialty Start Date End Date Edward Witt MD [address] [place] [address] PCP - General Internal Medicine 05/09/24 documented as of this encounter
--- OUTSIDE RECORDS SUMMARY | 2024-09-20 08:54 | XMS_ITS | Clinical Summary ---
Author Organization [address] [place] [address] Address [address] [place] [address] Phone Care Team Providers Care Process Artist Name Role Phone Shawn Johnson MD Primary Care Provider [phone] Allergies No known active allergies Medications amLODIPine-carlota [...] skin. 400 g 5 06/06/19 26 Active benzonatate (TESSALON) 100 mg capsule Take 1 capsule (100 mg total) by mouth every 8 (eight) hours for 7 days. Do not crush or chew. 21 capsule 5 09/10/19 25 doxycycline (MONODOX) 100 mg capsule Take 1 capsule (100 mg total) by mouth 2 (two) times a day for 7 days. Take with at least 8 ounces (large glass) of water, do not lie down for 30 minutes after. Administer 2 hours before or after multivitamins, antacids, or other products containing polyvalent cations (i.e., calcium, iron, magnesium, selenium, zinc). 14 capsule 5 09/10/19 25 predniSONE (DELTASONE) 50 mg tablet Take 1 tablet (50 mg total) by mouth 1 (one) time each day for 5 days. 5 each 5 09/08/19 25 Active Problems Problem Noted Date Diagnosed Date Hypothyroid 03/03/2024 Glaucoma 03/03/2024 Chronic SI joint pain 03/03/2024 Lumbar radiculopathy 03/03/2024 Neuropathy 03/03/2024 BPH (benign prostatic hyperplasia) 03/03/2024 Elevated cholesterol 03/03/2024 GERD (gastroesophageal reflux disease) 4 CKD (chronic kidney disease) 03/03/2024 Type 2 diabetes mellitus (CMS/HCC V24, CMS/HCC V 28) 03/03/2024 HTN (hypertension) 03/03/2024 Encounters Date Type Department Care Team Description 09/02/2024 12:28 AM EDT - 09/02/2024 6:[address] [facility] Emergency [address] [place] [address] Teena Farah MD Atypical pneumonia (Primary Dx) Discharge Disposition: Home or Self Care from Last 3 Months Social History Tobacco Use Types Packs/Day Years Used Date Smoking Tobacco: Never Assessed Sex and Gender Information Value Date Recorded Sex Assigned at Not on file Legal Sex Male 3:11 PM EST Gender Identity Not on file Sexual Orientation Not on file Last Filed Vital Signs Vital Sign Reading Time Taken Comments Blood Pressure 140/86 09/02/2024 6:00 AM EDT Pulse 78 09/02/2024 6:00 AM EDT Temperature 36.6 C (97.9 F) 09/02/2024 6:00 AM EDT Respiratory Rate 18 09/02/2024 6:00 AM EDT Oxygen Saturation 95% 09/02/2024 6:00 AM EDT Inhaled Oxygen Concentration - - Weight 112 kg (248 lb) 09/02/2024 1:47 AM EDT Height 170.2 cm (5' 7 ) 09/02/2024 1:47 AM EDT Body Mass Index 38.84 09/02/2024 1:47 AM EDT Plan of Treatment Upcoming Encounters Date Type Department Care Team (Late st Contact Info) Description 10/31/2024 2:00 PM EDT Office Visit Orthopedic Surgery - [place] [address] [address] Jose Lloyd, DPNickolas [address] [address] Health Maintenance Due Date Last Done Comments COVID-19 Vaccine (#1) 1965 Diabetes: Annual Foot Exam 1970 Diabetes: Annual Retina Eye Exam 1970 Pneumococcal Vaccine: 50+ Ye ars (1 of 2 - PCV) 1979 Pneumococcal Vaccine: Pediat rics (0 to 5 Years) and At-Risk Patients (6 to 64 Years) (1 of 2 - PCV) 1979 Zoster Vaccines (1 of 2) 1979 RSV Immunization Adult Patie nts (1 - Risk 60-74 years 1-dose series) 2020 Cholesterol Screening (Lipid Panel) 02/18/2022 Colorectal Cancer Screening: Colonoscopy 02/18/2022 Depression Screening 02/18/2022 HIV Screening 02/18/2022 Hepatitis C Screening 02/18/2022 Social Influencers of Health Screening 02/18/2022 Diabetes: Annual Urine Albumin-Creatinine Ratio (uACR) 03/03/2024 Diabetes: Blood Sugar Contro l Test (HGBA1C) 03/03/2024 04/10/2022 Diabetes: Annual GFR (Glomer ular Filtration Rate) 09/02/2025 09/02/2024 Hypertension/CHF/CAD Annual BMP Blood Test 09/02/2025 09/02/2024 DTaP,Tdap,and Td Vaccines (2 - Td or [...] Procedure Name Priority Date/Time Associated Diagnosis Comments ECG ANNOTATED 09/04/2024 POCT GLUCOSE BLOOD Routine 09/02/2024 6: 03 AM EDT XR CHEST 2 VIEWS STAT 09/02/2024 3:24 AM EDT TROPONIN I HIGH SENSITIVITY STAT 09/02/2024 3:08 AM EDT CBC WITH AUTO DIFFERENTIAL STAT 09/02/2024 1:31 AM EDT B-TYPE NATRIURETIC PEPTIDE STAT 09/02/2024 1:31 AM EDT MAGNESIUM STAT 09/02/2024 1:31 AM EDT LIPASE STAT 09/02/2024 1:31 AM EDT COMPREHENSIVE METABOLIC PANEL STAT 09/02/2024 1:31 AM EDT CBC AND DIFFERENTIAL STAT 09/02/2024 1:31 AM EDT TROPONIN I HIGH SENSITIVITY STAT 09/02/2024 1:31 AM EDT RESPIRATORY VIRUS PANEL MOLECULAR STUDY STAT 09/02/2024 1:31 AM EDT ECG 12-LEAD STAT 09/02/2024 1:06 AM EDT from Last 3 Months Results * ECG-Annotated (09/04/2024) us Provider Onbase ECG ORDERABLES Final Result * (ABNORMAL) POCT Glucose, blood (09/02/2024 6:03 AM EDT) [facility] Glucose POCT 150(H) 70 - 100 mg/dL 09/02/2024 6:04 AM EDT [facility] Blood Capillary blood specimen / Unknown 09/02/2024 6:03 AM EDT 09/02/2024 6:05 AM EDT Teena Farah MD LAB POINT OF CAR E TEST DOCKED DEVICE UNSOLICITED RESULTS Final Result [facility]) [facility] [address] [place] [address], [place] [phone] * XR Chest 2 Views (09/02/2024 3:24 AM EDT) Anatomical Region Laterality Modality Body Radiographic Debora ging 09/02/2024 8:37 AM EDT Impressions 09/02/2024 8:45 AM EDT FINDINGS/IMPRESSION: Normal heart size and pulmonary vascularity. Lungs are clear and costophrenic angles are sharp. No acute osseous abnormality.. -------- FINAL REPORT -------- Dictated By: Suzanne Trujillo Dictated Date: 09/02/2024 08:37 ET Assigned Physician: Suzanne Trujillo Reviewed and Electronically Signed By: Suzanne Trujillo Signed Date: 09/02/2024 08:45 ET Workstation ID: [id number] Transcribed By: Self Edit Transcribed Date: 09/02/2024 08:37 ET Narrative 09/02/2024 8:45 AM EDT XR CHEST 2 VIEWS INDICATION: chest pain TECHNIQUE: XR CHEST 2 VIEWS COMPARISON: No priors available. Procedure Note Suzanne Trujillo MD - 09/02/2024 XR CHEST 2 VIEWS INDICATION: chest pain TECHNIQUE: XR CHEST 2 VIEWS COMPARISON: No priors available. IMPRESSION: FINDINGS/IMPRESSION: Normal heart size and pulmonary vascularity. Lungsare clear and costophrenic angles are sharp. No acute osseousabnormality.. -------- FINAL REPORT -------- Dictated By: Suzanne Trujillo Dictated Date: 09/02/2024 08:37 ET Assigned Physician: Suzanne Trujillo Reviewed and Electronically Signed By: Suzanne Trujillo Signed Date: 09/02/2024 08:45 ET Workstation ID: [id number] Transcribed By: Self Edit Transcribed Date: 09/02/2024 08:37 ET us Teena Farah MD IMG XR PROCEDURES Final Result * Troponin I high sensitivity (09/02/2024 3:08 AM EDT) Only the most recent of2 resultswithin the time period is included. High Sensitivity Troponin I 12 <=79 ng/L LAB CHEMISTRY METHOD 09/02/2024 3:54 AM EDT [facility] Blood Venous blood specimen / Unknown Venipuncture / Unknown 09/02/2024 3:08 AM EDT 09/02/2024 3:26 AM EDT Narrative [facility] - 09/02/2024 3:54 AM EDT High levels of biotin in samples may falsely decrease hsTroponin values. Use caution when interpreting hsTroponin results in patients taking biotin who exhibit renal impairment (eGFR <60) or in patients taking more than 20 mg/day of biotin. us Teena Farah MD LAB BLOOD ORDERABLES Fin al Result [facility] [address] [place] [address], [place] [phone] * Respiratory virus panel molecular study (09/02/2024 1:31 AM EDT) Pathologist [facility] Adenovirus Detection by PCR Not Detected Not Detected LAB MICROBIOLOGY METHOD 09/02/2024 2:45 AM EDT [facility] Influenza A PCR Not Detected Not Detected LAB MICROBIOLOGY METHOD 09/02/2024 2:45 AM EDT [facility] Influenza B PCR Not Detected Not Detected LAB MICROBIOLOGY METHOD 09/02/2024 2:45 AM EDT [facility] Coronavirus 229E Not Detected Not Detected LAB MICROBIOLOGY METHOD 09/02/2024 2:45 AM EDT [facility] Coronavirus HKU1 Not Detected Not Detected LAB MICROBIOLOGY METHOD 09/02/2024 2:45 AM EDT [facility] Coronavirus OC43 Not Detected Not Detected LAB MICROBIOLOGY METHOD 09/02/2024 2:45 AM EDT [facility] Coronavirus NL63 Not Detected Not Detected LAB MICROBIOLOGY METHOD 09/02/2024 2:45 AM EDT [facility] Parainfluenza Virus 1 Not Detected Not Detected LAB MICROBIOLOGY METHOD 09/02/2024 2:45 AM EDT [facility] Parainfluenza Virus 2 Not Detected Not Detected LAB MICROBIOLOGY METHOD 09/02/2024 2:45 AM EDT [facility] Parainfluenza Virus 3 Not Detected Not Detected LAB MICROBIOLOGY METHOD 09/02/2024 2:45 AM EDT [facility] Parainfluenza Virus 4 Not Detected Not Detected LAB MICROBIOLOGY METHOD 09/02/2024 2:45 AM EDT [facility] RSV PCR Not Detected Not Detected LAB MICROBIOLOGY METHOD 09/02/2024 2:45 AM EDT [facility] Human Metapneumovirus A and B Not Detected Not Detected LAB MICROBIOLOGY METHOD 09/02/2024 2:45 AM EDT [facility] Rhinovirus/Entero virus Not Detected Not Detected LAB MICROBIOLOGY METHOD 09/02/2024 2:45 AM EDT [facility] Bordetella pertussis Not Detected Not Detected LAB MICROBIOLOGY METHOD 09/02/2024 2:45 AM EDT [facility] Bordetella parapertussis Not Detected Not Detected LAB MICROBIOLOGY METHOD 09/02/2024 2:45 AM EDT [facility] Mycoplasma pneumo by PCR Not Detected Not Detected LAB MICROBIOLOGY METHOD 09/02/2024 2:45 AM EDT [facility] Chlamydia pneumoniae Not Detected Not Detected LAB MICROBIOLOGY METHOD 09/02/2024 2:45 AM EDT [facility] SARS COV-2 Not Detected Not Detected LAB MICROBIOLOGY METHOD 09/02/2024 2:45 AM T [facility] Swab Both anterior nares / Unknown Non-blood Collection / Unknown 09/02/2024 1:31 AM EDT 09/02/2024 1:44 AM EDT [facility] - 09/02/2024 2:45 AM EDT Testing was performed using the [employer] Respiratory Pathogen PCR Assay. All results must be correlated with the clinical findings. Results should not be used as the sole basis for diagnosis. False Negative results may occur from the presence of sequence variants in the region targeted by the assay or the presence of inhibitors. Results may be affected by concurrent antiviral/antimicrobial therapy or levels of organisms that are below the limit of detection. us Teena Farah MD LAB MICROBIOLOGY - GENER AL ORDERABLES Final Result [facility] [address] [place] [address], * (ABNORMAL) CBC auto differential (09/02/2024 1:31 AM EDT) WBC 7.9 4.8 - 10.8 K/mcL LAB HEMETOLOGY METHOD 09/02/2024 2:24 AM EDT [facility] RBC 3.90(L) 4.50 - 5.50 M/mcL LAB HEMETOLOGY METHOD 09/02/2024 2:24 AM EDT [facility] Hemoglobin 11.9(L) 13.5 - 17.5 g/dL LAB HEMETOLOGY METHOD 09/02/2024 2:24 AM EDT [facility] Hematocrit 37.1(L) 42.0 - 54.0 % LAB HEMETOLOGY METHOD 09/02/2024 2:24 AM EDT [facility] MCV 95.4 79.0 - 98.0 FL LAB HEMETOLOGY METHOD 09/02/2024 2:24 AM EDT [facility] MCH 30.6 27.0 - 32.0 pcg LAB HEMETOLOGY METHOD 09/02/2024 2:24 AM EDT [facility] MCHC 32.1 32.0 - 37.0 g/dL LAB HEMETOLOGY METHOD 09/02/2024 2:24 AM EDT [facility] RDW 13.9 11.0 - 15.0 % LAB HEMETOLOGY METHOD 09/02/2024 2:24 AM EDT [facility] Platelets 250 130 - 400 K/mcL LAB HEMETOLOGY METHOD 09/02/2024 2:24 AM EDT [facility] MPV 10.1 7.0 - 11.0 FL LAB HEMETOLOGY METHOD 09/02/2024 2:24 AM [facility] NRBC 0.0 <1.0 % LAB HEMETOLOGY METHOD 09/02/2024 2:24 AM [facility] NRBC Absolute 0.00 <0.10 K/mcL LAB HEMETOLOGY METHOD 09/02/2024 2:24 AM [facility] Neutrophils Relative 48.3 % LAB HEMETOLOGY METHOD 09/02/2024 2:24 AM [facility] Lymphocytes Relative 38.6 % LAB HEMETOLOGY METHOD 09/02/2024 2:24 AM [facility] Monocytes Relative 10.4 % LAB HEMETOLOGY METHOD 09/02/2024 2:24 AM [facility] Eosinophils Relative 2.0 % LAB HEMETOLOGY METHOD 09/02/2024 2:24 AM [facility] Basophils Relative 0.6 % LAB HEMETOLOGY METHOD 09/02/2024 2:24 AM [facility] Immature Granulocytes Relative 0.1 % LAB HEMETOLOGY METHOD 09/02/2024 2:24 AM [facility] Neutrophils Absolute 3.82 1.50 - 7.00 K/mcL LAB HEMETOLOGY METHOD 09/02/2024 2:24 AM [facility] Lymphocytes Absolute 3.06 1.00 - 5.00 K/mcL LAB HEMETOLOGY METHOD 09/02/2024 2:24 AM [facility] Monocytes Absolute 0.82 0.20 - 1.00 K/mcL LAB HEMETOLOGY METHOD 09/02/2024 2:24 AM [facility] Eosinophils Absolute 0.16 0.00 - 0.50 K/mcL LAB HEMETOLOGY METHOD 09/02/2024 2:24 AM [facility] Basophils Absolute 0.05 0.00 - 0.20 K/[facility] LAB HEMETOLOGY METHOD 09/02/2024 2:24 AM EDT [facility] Immature Granulocytes Absolute 0.01 0.00 - 0.03 K/[facility] LAB HEMETOLOGY METHOD 09/02/2024 2:24 AM EDT [facility] Blood Venous blood specimen / Unknown Venipuncture / Unknown 09/02/2024 1:31 AM EDT 09/02/2024 1:45 AM EDT Teena Farah MD LAB BLOOD ORDERABLES Fin al Result Performing Organization Address [facility]/ZIP Co de Phone Number [facility] [address] [place] [address], [place] [phone] * B-type natriuretic peptide (09/02/2024 1:31 AM EDT) BNP 18 <=100 pcg/mL LAB CHEMISTRY METHOD 09/02/2024 2:17 AM EDT [facility] Blood Venous blood specimen / Unknown Venipuncture / Unknown 09/02/2024 1:31 AM EDT 09/02/2024 1:45 AM EDT Teena Farah MD LAB BLOOD ORDERABLES Fin al Result [facility] [address] [place] [address], [place] [phone] * Magnesium (09/02/2024 1:31 AM EDT) Magnesium 2.0 1.9 - 2.6 mg/dL LAB CHEMISTRY METHOD 09/02/2024 2:11 AM EDT [facility] Comment:Hemolysis present Blood Venous blood specimen / Unknown Venipuncture / Unknown 09/02/2024 1:31 AM EDT 09/02/2024 1:45 AM EDT Teena Farah MD LAB BLOOD ORDERABLES Fin al Result Performing Organization Address City/[facility]/ZIP Co de Phone Number [facility] [address] [place] [address], [place] [phone] * Lipase (09/02/2024 1:31 AM EDT) Pathologist [facility] Lipase 44 13 - 75 unit/L LAB CHEMISTRY METHOD 09/02/2024 2:11 AM EDT [facility] Blood Venous blood specimen / Unknown Venipuncture / Unknown 09/02/2024 1:31 AM EDT 09/02/2024 1:45 AM EDT Teena Farah MD LAB BLOOD ORDERABLES Fin al Result Performing Organization Address [facility] Co de Phone Number [facility] [address] [place] [address], [place] [phone] * (ABNORMAL) Comprehensive metabolic panel (09/02/2024 1:31 AM EDT) [facility] Sodium 138 133 - 145 mmol/L LAB CHEMISTRY METHOD 09/02/2024 2:11 AM [facility] Potassium 4.8 3.5 - 5.5 mmol/L LAB CHEMISTRY METHOD 09/02/2024 2:11 AM EDT [facility] Comment:Hemolysis present Chloride 108 96 - 110 mmol/L LAB CHEMISTRY METHOD 09/02/2024 2:11 AM EDT [facility] CO2 24 21 - 32 mmol/L LAB CHEMISTRY METHOD 09/02/2024 2:11 AM EDT [facility] Anion Gap 6 3 - 11 LAB CHE[facility]STRY METHOD [facility]/02[facility]24 [facility] Glucose 178(H) 70 - 100 mg/dL LAB CHEMISTRY METHOD 09/02/2024 2:11 AM [facility] BUN 16 5 - 25 mg/dL LAB CHEMISTRY METHOD 09/02/2024 2:11 AM [facility] Creatinine 1.74(H) 0.70 - 1.30 mg/dL LAB CHEMISTRY METHOD 09/02/2024 2:11 AM [facility] eGFR 43(L) >=60 mL/min/1. 73m2 LAB CHEMISTRY METHOD 09/02/2024 2:11 AM [facility] Comment:Calculation based on the Chronic Kidney Disease Epidemiology Collaboration (CKD-EPI) equation refit without adjustment for race. BUN/Creatinine Ratio 9.2 LAB CHEMISTRY METHOD 09/02/2024 2:11 AM [facility] Calcium 8.0(L) 8.5 - 10.5 mg/dL LAB CHEMISTRY METHOD 09/02/2024 2:11 AM [facility] AST (SGOT) 39 10 - 42 unit/L LAB CHEMISTRY METHOD 09/02/2024 2:11 AM [facility] Comment:Hemolysis present ALT (SGPT) 25 10 - 60 unit/L LAB CHEMISTRY METHOD 09/02/2024 2:11 AM [facility] Alkaline Phosphatase 114 42 - 121 unit/L LAB CHEMISTRY METHOD 09/02/2024 2:11 AM [facility] Total Protein 6.3 6.0 - 8.0 g/dL LAB CHEMISTRY METHOD 09/02/2024 2:11 AM [facility] Albumin 3.0(L) 3.2 - 5.0 g/dL LAB CHEMISTRY METHOD 09/02/2024 2:11 AM [facility] Total Bilirubin 0.3 0.0 - 1.4 mg/dL LAB CHEMISTRY METHOD 09/02/2024 2:11 AM [facility] Blood Venous blood specimen / Unknown Venipuncture / Unknown 09/02/2024 1:31 AM EDT 09/02/2024 1:45 AM EDT Teena Farah MD LAB BLOOD ORDERABLES Fin al Result [facility] [address] [place] [address], [place] [phone] * ECG 12 lead (09/02/2024 1:06 AM EDT) Ventricular Rate ECG 73 BPM GEMUSE Atrial Rate 73 BPM GEMUSE P-R Interval 142 ms GEMUSE QRS Duration 94 ms GEMUSE Q-T Interval 410 ms GEMUSE QTc 451 ms GEMUSE P Wave Hydes 66 degrees GEMUSE R Hydes 10 degrees GEMUSE T Hydes 10 degrees GEMUSE ECG Interpretation Normal sinus rhythm Normal ECG When compared with ECG of 01-APR-2023 17:08, No significant change was found Confirmed by STEWART SEAMAN ([id number]) on 09/02/2024 12:54:31 PM GEMUSE 09/02/2024 1:06 AM EDT 09/02/2024 12:54 PM EDT Teena Farah MD ECG ORDERABLES Final Re sult Performing Organization Address City/[facility] Co de Phone Number GEMUSE from Last 3 Months Insurance [facility] Care Teams Process Artist Relationship Specialty Start Date End Date Shawn Johnson MD [address] [place] [address] [facility] - General 12/23/23
== END 2024-09-20 09:14 | disposition home or self-care (01) ==
LOC: HO.HMCC 08:49
PROVIDERS: PCP Internal Medicine; Visit Provider Internal Medicine
DX: E10.3553 Type 1 diabetes mellitus with stable proliferative diabetic retinopathy, bilateral (principal); F11.20 Opioid dependence, uncomplicated; M25.512 Pain in left shoulder; G89.29 Other chronic pain; M19.012 Primary osteoarthritis, left shoulder; M53.3 Sacrococcygeal disorders, not elsewhere classified; M79.18 Myalgia, other site; M47.816 Spondylosis without myelopathy or radiculopathy, lumbar region; I10 Essential (primary) hypertension; R52 Pain, unspecified

== ENCOUNTER → 2024-09-20 08:48 | Outpatient (BNVA) | payer OTHER, SELFPAY | PROVIDERS: PCP Internal Medicine; Visit Provider Internal Medicine | DX: M19.012 Primary osteoarthritis, left shoulder (principal); M53.3 Sacrococcygeal disorders, not elsewhere classified; M79.18 Myalgia, other site; M47.816 Spondylosis without myelopathy or radiculopathy, lumbar region; E10.3553 Type 1 diabetes mellitus with stable proliferative diabetic retinopathy, bilateral; I10 Essential (primary) hypertension; F11.20 Opioid dependence, uncomplicated; M25.511 Pain in right shoulder; Z79.4 Long term (current) use of insulin; Z79.899 Other long term (current) drug therapy | CPT/HCPCS: 96127; 99212 ==

== ENCOUNTER 2024-10-13 10:08 | Outpatient (AMB) | payer OTHER, SELFPAY ==
[2024-10-13 10:14] VITALS: BP 112/72; PULSE 73; O2SAT 97; BMI 38.7
--- NOTE | 2024-10-13 10:14 | A.OFFPC_ITS ---
Vital Signs 10/13/24 10:14 Height 5 ft 7 in Weight 247 lb BMI 38.7 BP 112/72 Blood Pressure Location Lt brachial Position Sitting Pulse 73 Pulse Source Pulse Oximeter Pulse Oximetry (%) 97 Oxygen Delivery Method Room Air Intake Visit Reasons: 28 days f/up Allergies No Known Allergies Allergy (Verified 10/13/24 10:18) Medication List - Last Reconciled 10/13/24 by Shawn Johnson MD amlodipine-benazepril 10-20 mg 1 cap PO DAILY aspirin (Adult Low Dose Aspirin) 81 mg PO DAILY atorvastatin 10 mg PO BEDTIME blood sugar diagnostic (FreeStyle Lite Strips) USE TO CHECK BLOOD SUGAR 3 TIMES DAILY: FASTING AND BEFORE MEALS cholecalciferol (vitamin D3) 25 mcg PO DAILY 90 days dorzolamide-timolol 22.3-6.8 mg/mL 1 drp ophthalmic (eye) BID dulaglutide (Trulicity) 4.5 mg (0.5 mL) subcut QWEEK 90 days flash glucose sensor (FreeStyle Ye 2 Sensor kit) Use with sensor to monitor blood sugar TID and as needed for s/s hypo/hyperglycemia fluticasone propionate 50 mcg/actuation (Allergy Relief (fluticasone)) 1 spray intranasal DAILY 30 days FreeStyle Ye 2 Knott (flash glucose scanning reader) Use with sensor to monitor blood sugar TID and as needed for s/s hypo/hyperglycemia NS FreeStyle Lite Meter (blood-glucose meter) Use to check blood sugar 4 times daily, fasting and AC NS insulin aspart U-100 (Novolog FlexPen U-100 Insulin aspart) 15 units (0.15 mL) subcut TID 90 days [insulin pen needles 4 times a day] lamotrigine 100 mg PO BID lancets (FreeStyle Lancets) Use to check blood sugar QID, fasting and AC Lantus Solostar U-100 Insulin (insulin glargine) subcutaneously 2 times a day; 50 units at night and 20 units in the morning 90 days NS levothyroxine 50 mcg PO DAILY lidocaine 5% (Lidoderm) 1 patch topical DAILY PRN MDD remove after 12 hours metoclopramide HCl (Reglan) 10 mg PO Q6H 7 days oxycodone-acetaminophen 5-325 mg (Percocet) 1 tab PO Q8H PRN 30 days pantoprazole 20 mg PO DAILY pen needle, diabetic (Ultra-Fine Pen Needle) qid Tobacco use date assessed: 09/20/24 Fall risk assessment: No Falls in past year Last assessed Fall Risk: 10/13/24 Dental Screening Dental Screen Date: 08/25/24 HPI 28 days f/up HPI Details History - The patient is a 64-year-old male pres enting with severe osteoarthritis and back pain, managed with oxycodone every 8 hours. The medication has been effective in reducing pain severity, allowing daily activities without excessive discomfort. - Pain has been present for an extended period and is described as severe, with exacerbations occurring regularly. The intensity of pain varies but is reported as being significant, impacting quality of life. - The patient also reports ongoing hypot hyroidism, managed with levothyroxine 50 mg. The condition appears stable with current treatment. - The patient suffers from insulin-depen dent diabetes, with a history of regular laboratory monitoring, last completed in April, and due for follow-up tests. - Lipid disorder is controlled with ator vastatin 10 mg. - Blood pressure is managed with amlodip ine and benazepril 10-20 mg daily. - Uncertainty regarding the continuation of lamotrigine 100 mg BID, last filled in 2021 by a previous provider, with no recent usage confirmed. - Notable for obesity, with a BMI of 38. 7. Medical History: - Severe Osteoarthritis - Chronic Back Pain - Hypothyroidism - Insulin-Dependent Diabetes Mellitus - Dyslipidemia - Hypertension - Obesity Medications: - Oxycodone, every 8 hours for pain raoul gement related to osteoarthritis. - Levothyroxine 50 mg for hypothyroidism . - Atorvastatin 10 mg for lipid disorder. - Amlodipine and Benazepril 10-20 mg titi ly for hypertension. - Lamotrigine 100 mg BID, uncertain adhe jennifer, last filled in 2021. 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 Diagnostic Results: - Labs: Full set of labs last completed in April. Problem List - Severe Osteoarthritis - Chronic Back Pain - Hypothyroidism - Insulin-Dependent Diabetes Mellitus - Dyslipidemia - Hypertension - Obesity Patient Instructions - I'll send your medication over to the pharmacy; you can pick it up there. - Please do the blood test before your next appointment. - continue medications your oxycodone sc ript sent to pharmacy Review of Systems - General: No fever no chills - Neurological: No headaches no dizziness - Ear nose throat: No sore throat no hearing difficulty no ear pain - Cardiovascular: No syncope, no chest pain, no palpitations - Gastrointestinal: No nausea vomiting or diarrhea - Endocrine: No polyuria polydipsia no heat intolerance - Genitourinary: No dysuria , no blood in urine Physical Exam - General: No acute distress - HEENT: No acute findings - Neck: Supple - Respiratory system: Able to talk in f ull sentences, no audible wheeze - Cardiovascular: S1-S2 regular in rate and rhythm - Gastrointestinal: No pain - Extremities: No new findings - EMBLEM DRAWER IN: Alert awake oriented x3 motor se nsory intact - Skin: Normal turgor PFSH Medical History Hypothyroid Glaucoma Chronic SI joint pain Lumbar radiculopathy Neuropathy BPH (benign prostatic hyperplasia) Elevated cholesterol GERD (gastroesophageal reflux disease) CKD (chronic kidney disease) Diabetes HTN (hypertension) Surgical History Hx of cataract surgery History of surgery on lower extremity History of shoulder surgery Family History Father Diabetes Hypertension Cancer Mother Hypertension Diabetes Social History Housing: House Patient Tobacco Use Status: Never used Tobacco e-Cigarette/Vaping Use: Never Used service: No Current occupational status: disabled Cognitive needs: No Hearing needs: No Vision needs: Yes Questionnaire Thrive Questionnaire Date Thrive assessed: 10/13/24 I am a: Patient What is your living situation today?: I have a steady place to live Within the past 12 months, did the food you bought not last and you didn't have the money to get more?: Sometimes True Within the past 12 months, did you worry whether your food would run out before you got money to buy more?: Often true Do you have trouble paying for medicines?: No Do you have trouble getting transportation to medical appointments?: Yes Do you have trouble paying your heating and electricity bill?: Yes Do you have trouble taking care of your child, family member or friend?: No Do you have trouble with day-to-day activities such as bathing, preparing meals, shopping, managing finances, etc.?: No Are you currently unemployed and looking for a job?: I choose not to answer this question Are you interested in more education?: I choose not to answer this question Please select the resources that you would like help with: None Currently or been in a relationship where the following occur: I choose not to answer THRIVE Score: 4 AMINATA-7 AMB Questionnaire AMINATA-7 Date AMINATA - 7 assessed: 10/13/24 Feeling nervous, anxious, or on edge: 1 = Several days Not being able to stop or control worryin = Several days Worrying too much about different things: 3 = Nearly every day Trouble relaxin = Nearly every day Being so restless that it is hard to sit still: 3 = Nearly every day Becoming easily annoyed or irritable: 3 = Nearly every day Feeling afraid as if something awful might happen: 1 = Several days Total AMINATA-7 score (0-4 normal; 5-9 mild; 10-14 moderate; 15-21 severe): 15 Source: Developed by Drs. Josiah Bailey, Gema Zimmerman, Brian Jo and colleagues, with an educational lovely from [employer]. AMINATA-7 Assessment Billing AMINATA-7 Assessment Tool: AMINATA-7 Assessment 52020 Physical exam (Primary Care) Vital Signs: Last Vital Signs Pulse 73 10/13/24 10:14 BP 112/72 10/13/24 10:14 Pulse Ox 97 10/13/24 10:14 Oxygen Delivery Method Room Air 10/13/24 10:14 BMI result Body Mass Index 38.7 Tobacco/Smoking Status: Tobacco use Status Tobacco use date assessed 09/20/24 10/13/24 10:16 Patient Tobacco Use Status Never used Tobacco 10/13/24 10:16 e-Cigarette/Vaping Use Never Used 10/13/24 10:16 Thrive Assessment: Date of Thrive Assessment Date Thrive assessed 10/13/24 10/13/24 10:19 Currently or been in a relationship where the following occur: I choose not to answer Coding Level of Care Code Est Pt Level 4 (71829) Complex EM visit Add On G2211 Diagnoses Primary osteoarthritis, left shoulder M19.012 Sacroiliac joint dysfunction of left side M53.3 Myofascial pain syndrome M79.18 Arthritis of left acromioclavicular joint M19.012 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 E10.3553 Diabetes mellitus complication status: with ophthalmic complications Diabetes mellitus complication detail: with diabetic retinopathy Diabetic retinopathy severity: with proliferative retinopathy Proliferative retinopathy type: stable Laterality: bilateral Hypertension, essential I10 Chronic narcotic dependence F11.20 Pain management R52 Additional Codes AMINATA-7 Assessment Billing - AMINATA-7 Assessment Tool: AMINATA-7 Assessment [id number] ([id number]) Assessment & Plan Assessment & Plan (1) Primary osteoarthritis, left shoulder: Code(s): M19.012 - Primary osteoarthritis, left shoulder Category: Medical (2) Sacroiliac joint dysfunction of left side: Code(s): M53.3 - Sacrococcygeal disorders, not elsewhere classified Category: Medical (3) Myofascial pain syndrome: Code(s): M79.18 - Myalgia, other site Category: Medical (4) Arthritis of left acromioclavicular joint: Code(s): M19.012 - Primary osteoarthritis, left shoulder Category: Medical (5) Insulin dependent type 1 diabetes mellitus: Code(s): E10.9 - Type 1 diabetes mellitus without complications Category: Medical Qualifiers: Diabetes mellitus complication status: with ophthalmic complications Diabetes mellitus complication detail: with diabetic retinopathy Diabetic retinopathy severity: with proliferative retinopathy Proliferative retinopathy type: stable Laterality: bilateral Qualified Code(s): E10.3553 - Type 1 diabetes mellitus with stable proliferative diabetic retinopathy, bilateral (6) Hypertension, essential: Code(s): I10 - Essential (primary) hypertension Category: Medical (7) Chronic narcotic dependence: Code(s): F11.20 - Opioid dependence, uncomplicated Category: Medical (8) Pain management: Code(s): R52 - Pain, unspecified Category: Medical Plan History - The patient is a 64-year-old male presenting with severe osteoarthritis and back pain, managed with oxycodone every 8 hours. The medication has been effective in reducing pain severity, allowing daily activities without excessive discomfort. - Pain has been present for an extended period and is described as severe, with exacerbations occurring regularly. The intensity of pain varies but is reported as being significant, impacting quality of life. - The patient also reports ongoing hypothyroidism, managed with levothyroxine 50 mg. The condition appears stable with current treatment. - The patient suffers from insulin-dependent diabetes, with a history of regular laboratory monitoring, last completed in April, and due for follow-up tests. - Lipid disorder is controlled with atorvastatin 10 mg. - Blood pressure is managed with amlodipine and benazepril 10-20 mg daily. - Uncertainty regarding the continuation of lamotrigine 100 mg BID, last filled in 2021 by a previous provider, with no recent usage confirmed. - Notable for obesity, with a BMI of 38.7. Medical History: - Severe Osteoarthritis - Chronic Back Pain - Hypothyroidism - Insulin-Dependent Diabetes Mellitus - Dyslipidemia - Hypertension - Obesity Medications: - Oxycodone, every 8 hours for pain management related to osteoarthritis. - Levothyroxine 50 mg for hypothyroidism. - Atorvastatin 10 mg for lipid disorder. - Amlodipine and Benazepril 10-20 mg daily for hypertension. - Lamotrigine 100 mg BID, uncertain adherence, last filled in 2021. 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 Diagnostic Results: - Labs: Full set of labs last completed in April. Problem List - Severe Osteoarthritis - Chronic Back Pain - Hypothyroidism - Insulin-Dependent Diabetes Mellitus - Dyslipidemia - Hypertension - Obesity Patient Instructions - I'll send your medication over to the pharmacy; you can pick it up there. - Please do the blood test before your next appointment. - continue medications your oxycodone script sent to pharmacy Medications: Refilled oxycodone-acetaminophen 5-325 mg (Percocet) Partial Fill upon patient request. 1 tab PO Q8H PRN 60 tabs 0RF pain 30 days M13.0 - Polyarthritis, unspecified, M25.511 - Pain in right shoulder, M47.816 - Spondylosis without myelopathy or radiculopathy, lumbar region
--- OUTSIDE RECORDS SUMMARY | 2024-10-13 10:27 | XMS_ITS | Encounter Summary ---
Author Organization [facility] Address [address] [place] [address] Phone Care Team Providers Care Medication Reconciliation Technician Name Role Phone Edward Witt MD Primary Care Provider [phone] Encounter Details Date Type Department Care Team (Late st Contact Info) Description 07/09/2023 Documentation Only [facility] [address] [place] [address] Emily Barnhart [address] [place], [place] [...] Visit [facility] [address] [place] [address] Torey Tom MD [address] [place] [address] [place] [address] documented as of this encounter Visit Diagnoses Not on filedocumented in this encounter Care Teams Medication Reconciliation Technician Relationship Specialty Start Date End Date Edward Witt MD [address] [place] [id number] PCP - General Internal Medicine 05/09/24 documented as of this encounter
--- OUTSIDE RECORDS SUMMARY | 2024-10-13 10:27 | XMS_ITS | Clinical Summary ---
Author Organization [address] [place] [address] Address [address] [place] [address] Phone Care Team Providers Care Physical Education Professor Name Role Phone Shawn Johnson MD Primary Care Provider [phone] Allergies No known active allergies Medications amLODIPine-carlota [...] EDT - 09/02/2024 6:08 AM EDT Emergency [facility] Emergency [address] [place] [address] Teena Farah MD Atypical pneumonia [...] PM EDT Office Visit Orthopedic Surgery - [place] [address] [id number] Jose Lloyd, DPM 175 [facility] [address] [place] [address] Health Maintenance Due Date Last Done Comments COVID-19 Vaccine (#1) 1965 Diabetes: Annual Foot Exam 1970 Diabetes: Annual Retina Eye Exam 1970 Pneumococcal Vaccine: 50+ Ye ars (1 of 2 - PCV) 1979 Zoster Vaccines (1 of 2) 1979 RSV Immunization Adult Patie nts (1 - Risk 60-74 years 1-dose series) 2020 Cholesterol Screening (Lipid Panel) 02/18/2022 Colorectal Cancer Screening: Colonoscopy 02/18/2022 HIV Screening 02/18/2022 Hepatitis C Screening 02/18/2022 Social Influencers of Health Screening 02/18/2022 Diabetes: Annual Urine Albumin-Creatinine Ratio (uACR) 03/03/2024 Diabetes: Blood Sugar Contro l Test (HGBA1C) 03/03/2024 04/10/2022 Depression Screening 03/22/2024 Influenza Vaccine (#1) 2024 12/22/2023 Diabetes: Annual GFR (Glomer ular Filtration Rate) 09/02/2025 09/02/2024 Hypertension/CHF/CAD Annual BMP Blood Test 09/02/2025 09/02/2024 DTaP,Tdap,and Td Vaccines (2 - Td or Tdap) 12/07/2033 12/08/2023 HIB Vaccines Aged Out No longer eligi [...] POCT Glucose, blood (09/02/2024 6:03 AM EDT) Glucose POCT 150(H) 70 - 100 mg/dL 09/02/2024 6:04 AM EDT [facility] Blood Capillary blood specimen / Unknown 09/02/2024 6:03 AM EDT 09/02/2024 6:05 AM EDT Teena Farah MD LAB POINT OF CAR E TEST DOCKED DEVICE UNSOLICITED RESULTS Final Result [facility] [address] [place] [address], [place] [phone] * XR Chest 2 Views (09/02/2024 3:24 [...] Signed Date: 09/02/2024 08:45 ET Workstation ID: [id number] Transcribed By: Self Edit Transcribed Date: 09/02/2024 [...] Signed Date: 09/02/2024 08:45 ET Workstation ID: [id number] Transcribed By: Self Edit Transcribed Date: 09/02/2024 08:37 ET Teena Farah MD IMG XR PROCEDURES Final Result * Troponin I high sensitivity (09/02/2024 3:08 AM EDT) Only the most recent of2 resultswithin the time period is included. [facility] High Sensitivity Troponin I 12 <=79 ng/L LAB CHEMISTRY METHOD 09/02/2024 3:54 AM EDT [facility] Blood Venous blood specimen / Unknown Venipuncture / Unknown 09/02/2024 3:08 AM EDT 09/02/2024 3:26 AM EDT Narrative [facility] - 09/02/2024 3:54 AM EDT High levels of biotin in samples may falsely decrease hsTroponin values. Use caution when interpreting hsTroponin results in patients taking biotin who exhibit renal impairment (eGFR <60) or in patients taking more than 20 mg/day of biotin. Teena Farah MD LAB BLOOD ORDERABLES Fin al Result [facility] [address] [place] [address], [place] [phone] * Respiratory virus panel molecular study (09/02/2024 1:31 AM EDT) [facility] Adenovirus Detection by PCR Not Detected Not Detected LAB MICROBIOLOGY METHOD 09/02/2024 2:45 AM EDT [facility] Influenza A PCR Not Detected Not Detected LAB MICROBIOLOGY METHOD 09/02/2024 2:45 AM EDT [facility] Influenza B PCR Not Detected Not Detected LAB MICROBIOLOGY METHOD 09/02/2024 2:45 AM EDT [facility] Coronavirus 229E Not Detected Not Detected LAB MICROBIOLOGY METHOD 09/02/2024 2:45 AM EDT [facility] Coronavirus HKU1 Not Detected Not Detected LAB MICROBIOLOGY METHOD 09/02/2024 2:45 AM EDT [facility] Coronavirus OC43 Not Detected Not Detected LAB MICROBIOLOGY METHOD 09/02/2024 2:45 AM EDT [facility] Coronavirus NL63 Not Detected Not Detected LAB MICROBIOLOGY METHOD 09/02/2024 2:45 AM EDT [facility] Parainfluenza Virus 1 Not Detected Not Detected LAB MICROBIOLOGY METHOD 09/02/2024 2:45 AM EDT [facility] Parainfluenza Virus 2 Not Detected Not Detected LAB MICROBIOLOGY METHOD 09/02/2024 2:45 AM EDT [facility] Parainfluenza Virus 3 Not Detected Not Detected LAB MICROBIOLOGY METHOD 09/02/2024 2:45 AM EDT [facility] Parainfluenza Virus 4 Not Detected Not Detected LAB MICROBIOLOGY METHOD 09/02/2024 2:45 AM EDT [facility] RSV PCR Not Detected Not Detected LAB MICROBIOLOGY METHOD 09/02/2024 2:45 AM EDT [facility] Human Metapneumovirus A and B Not Detected Not Detected LAB MICROBIOLOGY METHOD 09/02/2024 2:45 AM EDT [facility] Rhinovirus/Entero virus Not Detected Not Detected LAB MICROBIOLOGY METHOD 09/02/2024 2:45 AM EDT [facility] Bordetella pertussis Not Detected Not Detected LAB MICROBIOLOGY METHOD 09/02/2024 2:45 AM EDT [facility] Bordetella parapertussis Not Detected Not Detected LAB MICROBIOLOGY METHOD 09/02/2024 2:45 AM EDT [facility] Mycoplasma pneumo by PCR Not Detected Not Detected LAB MICROBIOLOGY METHOD 09/02/2024 2:45 AM EDT [facility] Chlamydia pneumoniae Not Detected Not Detected LAB MICROBIOLOGY METHOD 09/02/2024 2:45 AM EDT [facility] SARS COV-2 Not Detected Not Detected LAB MICROBIOLOGY METHOD 09/02/2024 2:45 AM EDT [facility] Swab Both anterior nares / Unknown Non-blood Collection / Unknown 09/02/2024 1:31 AM EDT 09/02/2024 1:44 AM EDT [facility] - 09/02/2024 2:45 AM EDT Testing was performed using the [employer] Respiratory Pathogen PCR Assay. All results must [...] MICROBIOLOGY - GENER AL ORDERABLES Final Result [facility] [address] [place] [address], * (ABNORMAL) CBC auto differential (09/02/2024 1:31 AM EDT) WBC 7.9 4.8 - 10.8 K/mcL LAB HEMETOLOGY METHOD 09/02/2024 2:24 AM EDT [facility] RBC 3.90(L) 4.50 - 5.50 M/mcL LAB HEMETOLOGY METHOD 09/02/2024 2:24 AM EDT [facility] Hemoglobin 11.9(L) 13.5 - 17.5 g/dL LAB HEMETOLOGY METHOD 09/02/2024 2:24 AM EDT [facility] Hematocrit 37.1(L) 42.0 - 54.0 % LAB HEMETOLOGY METHOD 09/02/2024 2:24 AM EDT [facility] MCV 95.4 79.0 - 98.0 FL LAB HEMETOLOGY METHOD 09/02/2024 2:24 AM [facility] MCH 30.6 27.0 - 32.0 pcg LAB HEMETOLOGY METHOD 09/02/2024 2:24 AM [facility] MCHC 32.1 32.0 - 37.0 g/dL LAB HEMETOLOGY METHOD 09/02/2024 2:24 AM [facility] RDW 13.9 11.0 - 15.0 % LAB HEMETOLOGY METHOD 09/02/2024 2:24 AM [facility] Platelets 250 130 - 400 K/mcL LAB HEMETOLOGY METHOD 09/02/2024 2:24 AM [facility] MPV 10.1 7.0 - 11.0 FL LAB HEMETOLOGY METHOD 09/02/2024 2:24 AM [facility] NRBC 0.0 <1.0 % LAB HEMETOLOGY METHOD 09/02/2024 2:24 AM [facility] NRBC Absolute 0.00 <0.10 K/mcL LAB HEMETOLOGY METHOD 09/02/2024 2:24 AM [facility] Neutrophils Relative 48.3 % LAB HEMETOLOGY METHOD 09/02/2024 2:24 AM [facility] Lymphocytes Relative 38.6 % LAB HEMETOLOGY METHOD 09/02/2024 2:24 AM [facility] Monocytes Relative 10.4 % LAB HEMETOLOGY METHOD 09/02/2024 2:24 AM [facility] Eosinophils Relative 2.0 % LAB HEMETOLOGY METHOD 09/02/2024 2:24 AM EDT [facility] Basophils Relative 0.6 % LAB HEMETOLOGY METHOD 09/02/2024 2:24 AM EDT [facility] Immature Granulocytes Relative 0.1 % LAB HEMETOLOGY METHOD 09/02/2024 2:24 AM EDT [facility] Neutrophils Absolute 3.82 1.50 - 7.00 K/mcL LAB HEMETOLOGY METHOD 09/02/2024 2:24 AM EDT [facility] Lymphocytes Absolute 3.06 1.00 - 5.00 K/mcL LAB HEMETOLOGY METHOD 09/02/2024 2:24 AM EDT [facility] Monocytes Absolute 0.82 0.20 - 1.00 K/mcL LAB HEMETOLOGY METHOD 09/02/2024 2:24 AM EDT [facility] Eosinophils Absolute 0.16 0.00 - 0.50 K/mcL LAB HEMETOLOGY METHOD 09/02/2024 2:24 AM EDT [facility] Basophils Absolute 0.05 0.00 - 0.20 K/mcL LAB HEMETOLOGY METHOD 09/02/2024 2:24 AM EDT [facility] Immature Granulocytes Absolute 0.01 0.00 - 0.03 K/mcL LAB HEMETOLOGY METHOD 09/02/2024 2:24 AM EDT [facility] Blood Venous blood specimen / Unknown Venipuncture / Unknown 09/02/2024 1:31 AM EDT 09/02/2024 1:45 AM EDT us Teena Farah MD LAB BLOOD ORDERABLES Fin al Result [facility] [address] [place] [address], * B-type natriuretic peptide (09/02/2024 1:31 AM EDT) BNP 18 <=100 pcg/mL LAB CHEMISTRY METHOD 09/02/2024 2:17 AM EDT [facility] Blood Venous blood specimen / Unknown Venipuncture / Unknown 09/02/2024 1:31 AM EDT 09/02/2024 1:45 AM EDT Teena Farah MD LAB BLOOD ORDERABLES Fin al Result Performing Organization Address [facility] de Phone Number [facility] [address] [place] [address], [place] [phone] * Magnesium (09/02/2024 1:31 AM EDT) [facility] Magnesium 2.0 1.9 - 2.6 mg/dL LAB CHEMISTRY METHOD 09/02/2024 2:11 AM EDT [facility] Comment:Hemolysis present Blood Venous blood specimen / Unknown Venipuncture / Unknown 09/02/2024 1:31 AM EDT 09/02/2024 1:45 AM EDT Teena Farah MD LAB BLOOD ORDERABLES Fin al Result Performing Organization Address [facility] de Phone Number [facility] [address] [place] [address], [place] [phone] * Lipase (09/02/2024 1:31 AM EDT) [facility] Lipase 44 13 - 75 unit/L LAB CHEMISTRY METHOD 09/02/2024 2:11 AM EDT [facility] Blood Venous blood specimen / Unknown Venipuncture / Unknown 09/02/2024 1:31 AM EDT 09/02/2024 1:45 AM EDT us Teena Farah MD LAB BLOOD ORDERABLES Fin al Result Performing Organization Address [facility] de Phone Number [facility] [address] [place] [address], [place] [phone] * (ABNORMAL) Comprehensive metabolic panel (09/02/2024 1:31 AM EDT) Sodium 138 133 - 145 mmol/L LAB CHEMISTRY METHOD 09/02/2024 2:11 AM [facility] Potassium 4.8 3.5 - 5.5 mmol/L LAB CHEMISTRY METHOD 09/02/2024 2:11 AM [facility] Comment:Hemolysis present Chloride 108 96 - 110 mmol/L LAB CHEMISTRY METHOD 09/02/2024 2:11 AM [facility] CO2 24 21 - 32 mmol/L LAB CHEMISTRY METHOD 09/02/2024 2:11 AM [facility] Anion Gap 6 3 - 11 LAB CHEMISTRY METHOD 09/02/2024 2:11 AM [facility] Glucose 178(H) 70 - 100 mg/dL LAB CHEMISTRY METHOD 09/02/2024 2:11 AM [facility] BUN 16 5 - 25 mg/dL LAB CHEMISTRY METHOD 09/02/2024 2:11 AM [facility] Creatinine 1.74(H) 0.70 - 1.30 mg/dL LAB CHEMISTRY METHOD 09/02/2024 2:11 AM [facility] eGFR 43(L) >=60 mL/min/1. 73m2 LAB CHEMISTRY METHOD 09/02/2024 2:11 AM [facility] Comment:Calculation based on the Chronic Kidney Disease Epidemiology Collaboration (CKD-EPI) equation refit without adjustment for race. BUN/Creatinine Ratio 9.2 LAB CHEMISTRY METHOD 09/02/2024 2:11 AM [facility] Calcium 8.0(L) 8.5 - 10.5 mg/dL LAB CHEMISTRY METHOD 09/02/2024 2:11 AM [facility] AST (SGOT) 39 10 - 42 unit/L LAB CHEMISTRY METHOD 09/02/2024 2:11 AM EDT [facility] Comment:Hemolysis present ALT (SGPT) 25 10 - 60 unit/L LAB CHEMISTRY METHOD 09/02/2024 2:11 AM EDT [facility] Alkaline Phosphatase 114 42 - 121 unit/L LAB CHEMISTRY METHOD 09/02/2024 2:11 AM EDT [facility] Total Protein 6.3 6.0 - 8.0 g/dL LAB CHEMISTRY METHOD 09/02/2024 2:11 AM EDT [facility] Albumin 3.0(L) 3.2 - 5.0 g/dL LAB CHEMISTRY METHOD 09/02/2024 2:11 AM EDT [facility] Total Bilirubin 0.3 0.0 - 1.4 mg/dL LAB CHEMISTRY METHOD 09/02/2024 2:11 AM EDT [facility] Blood Venous blood specimen / Unknown Venipuncture / Unknown 09/02/2024 1:31 AM EDT 09/02/2024 1:45 AM EDT Teena Farah MD LAB BLOOD ORDERABLES Fin al Result [facility] [address] [place] [address], * ECG 12 lead (09/02/2024 1:06 AM EDT) Ventricular Rate ECG 73 BPM [facility] Atrial Rate 73 BPM [facility] P-R Interval 142 ms [facility] QRS Duration 94 ms [facility] Q-T Interval 410 ms [facility] QTc 451 ms [facility] P Wave [place] 66 degrees GEMUSE R [place] 10 degrees GEMUSE T [place] 10 degrees G[facility] ECG Interpretation Normal sinus rhythm Normal ECG When compared with ECG of 01-APR-2023 17:08, No significant change was found Confirmed by STEWART SEAMAN ([id number]) on 09/02/2024 12:54:31 PM [facility] 09/02/2024 1:06 AM EDT 09/02/2024 12:54 PM EDT us Teena Farah MD ECG ORDERABLES Final Re sult [facility] from Last 3 Months Insurance [facility] Care Teams Physical Education Professor Relationship Specialty Start Date End Date Shawn Johnson MD [address] [place] [address] PCP - General 12/23/23
== END 2024-10-13 11:45 | disposition home or self-care (01) ==
LOC: HO.HMCC 10:09
PROVIDERS: PCP Internal Medicine; Visit Provider Internal Medicine
DX: M19.012 Primary osteoarthritis, left shoulder (principal); E10.3553 Type 1 diabetes mellitus with stable proliferative diabetic retinopathy, bilateral; F11.20 Opioid dependence, uncomplicated; M53.3 Sacrococcygeal disorders, not elsewhere classified; M79.18 Myalgia, other site; I10 Essential (primary) hypertension; R52 Pain, unspecified

== ENCOUNTER → 2024-10-13 10:08 | Outpatient (BNVA) | payer OTHER, SELFPAY | PROVIDERS: PCP Internal Medicine; Visit Provider Internal Medicine | DX: M19.012 Primary osteoarthritis, left shoulder (principal); E03.9 Hypothyroidism, unspecified; I10 Essential (primary) hypertension; E66.9 Obesity, unspecified; M53.3 Sacrococcygeal disorders, not elsewhere classified; M79.18 Myalgia, other site; E10.3553 Type 1 diabetes mellitus with stable proliferative diabetic retinopathy, bilateral; F11.20 Opioid dependence, uncomplicated; R52 Pain, unspecified; Z79.4 Long term (current) use of insulin; Z68.38 Body mass index [BMI] 38.0-38.9, adult | CPT/HCPCS: 96127; 99212 ==

== ENCOUNTER 2024-10-20 09:13 | Outpatient (REF) | payer OTHER, SELFPAY ==
--- OUTSIDE RECORDS SUMMARY | 2024-10-20 09:28 | XMS_ITS | Encounter Summary ---
Author Organization [facility] Address [address] [place] [address] Phone Care Team Providers Care Application Security Developer Name Role Phone Edward Witt MD Primary Care Provider [phone] Encounter Details Date Type Department Care Team (Late st Contact Info) Description 07/09/2023 Documentation Only [facility] [address] [place] [address] Emily Barnhart [address] [place] [address] Social History Tobacco Use Types [...] [facility] [address] [place] [address] Torey Tom MD [address] [place] [address] [place] [address] documented as of this encounter Visit Diagnoses Not on filedocumented in this encounter Care Teams Application Security Developer Relationship Specialty Start Date End Date Edward Witt MD [address] [place] [address] PCP - General Internal Medicine 05/09/24 documented as of this encounter
--- OUTSIDE RECORDS SUMMARY | 2024-10-20 09:28 | XMS_ITS | Clinical Summary ---
Author Organization [address] [place] [address] Address [address] [place] [address] Phone Care Team Providers Care Educational/Development Assistant Name Role Phone Shawn Johnson MD Primary Care Provider [phone] Allergies No known active allergies Medications amLODIPine-carlota [...] EDT - 09/02/2024 6:08 AM EDT Emergency [facility] Emergency [address] [place] [address] Teena Farah MD Atypical pneumonia [...] PM EDT Office Visit Orthopedic Surgery - [place] [address] [phone] Jose Lloyd, DPM 175 [facility] [address] [place] [address] Health Maintenance Due Date Last Done Comments [...] - 100 mg/dL 09/02/2024 6:04 AM EDT [facility] Blood Capillary blood specimen / Unknown 09/02/2024 6:03 AM EDT 09/02/2024 6:05 AM EDT Teena Farah MD LAB POINT OF CAR E TEST DOCKED DEVICE UNSOLICITED RESULTS Final Result [facility] [address] [place] [address], [place] [phone] * XR Chest 2 Views (09/02/2024 3:24 [...] Signed Date: 09/02/2024 08:45 ET Workstation ID: [id number] Transcribed By: Self Edit Transcribed Date: 09/02/2024 [...] Signed Date: 09/02/2024 08:45 ET Workstation ID: [id number] Transcribed By: Self Edit Transcribed Date: 09/02/2024 08:37 ET Teena Farah MD IMG XR PROCEDURES Final Result * Troponin I high sensitivity (09/02/2024 3:08 AM EDT) Only the most recent of2 resultswithin the time period is included. [facility] High Sensitivity Troponin I 12 <=79 ng/L LAB CHEMISTRY METHOD 09/02/2024 3:54 AM EDT [facility] Blood Venous blood specimen / Unknown Venipuncture / Unknown 09/02/2024 3:08 AM EDT 09/02/2024 3:26 AM EDT Narrative [facility] - 09/02/2024 3:54 AM EDT High levels of biotin in samples may falsely decrease hsTroponin values. Use caution when interpreting hsTroponin results in patients taking biotin who exhibit renal impairment (eGFR <60) or in patients taking more than 20 mg/day of biotin. Teena Farah MD LAB BLOOD ORDERABLES Fin al Result [facility] [address] [place] [address], [place] [phone] * Respiratory virus panel molecular study (09/02/2024 1:31 AM EDT) [facility] Adenovirus Detection by PCR Not Detected Not Detected LAB MICROBIOLOGY METHOD 09/02/2024 2:45 AM EDT [facility] Influenza A PCR Not Detected Not Detected LAB MICROBIOLOGY METHOD 09/02/2024 2:45 AM EDT [facility] Influenza B PCR Not Detected Not Detected LAB MICROBIOLOGY METHOD 09/02/2024 2:45 AM EDT [facility] Coronavirus 229E Not Detected Not Detected LAB MICROBIOLOGY METHOD 09/02/2024 2:45 AM EDT [facility] Coronavirus HKU1 Not Detected Not Detected LAB MICROBIOLOGY METHOD 09/02/2024 2:45 AM EDT [facility] Coronavirus OC43 Not Detected Not Detected LAB MICROBIOLOGY METHOD 09/02/2024 2:45 AM EDT [facility] Coronavirus NL63 Not Detected Not Detected LAB MICROBIOLOGY METHOD 09/02/2024 2:45 AM EDT [facility] Parainfluenza Virus 1 Not Detected Not Detected LAB MICROBIOLOGY METHOD 09/02/2024 2:45 AM EDT [facility] Parainfluenza Virus 2 Not Detected Not Detected LAB MICROBIOLOGY METHOD 09/02/2024 2:45 AM EDT [facility] Parainfluenza Virus 3 Not Detected Not Detected LAB MICROBIOLOGY METHOD 09/02/2024 2:45 AM EDT [facility] Parainfluenza Virus 4 Not Detected Not Detected LAB MICROBIOLOGY METHOD 09/02/2024 2:45 AM EDT [facility] RSV PCR Not Detected Not Detected LAB MICROBIOLOGY METHOD 09/02/2024 2:45 AM EDT [facility] Human Metapneumovirus A and B Not Detected Not Detected LAB MICROBIOLOGY METHOD 09/02/2024 2:45 AM EDT [facility] Rhinovirus/Entero virus Not Detected Not Detected LAB MICROBIOLOGY METHOD 09/02/2024 2:45 AM EDT [facility] Bordetella pertussis Not Detected Not Detected LAB MICROBIOLOGY METHOD 09/02/2024 2:45 AM EDT [facility] Bordetella parapertussis Not Detected Not Detected LAB MICROBIOLOGY METHOD 09/02/2024 2:45 AM EDT [facility] Mycoplasma pneumo by PCR Not Detected Not Detected LAB MICROBIOLOGY METHOD 09/02/2024 2:45 AM EDT [facility] Chlamydia pneumoniae Not Detected Not Detected LAB MICROBIOLOGY METHOD 09/02/2024 2:45 AM EDT [facility] SARS COV-2 Not Detected Not Detected LAB MICROBIOLOGY METHOD 09/02/2024 2:45 AM EDT [facility] Swab Both anterior nares / Unknown Non-blood Collection / Unknown 09/02/2024 1:31 AM EDT 09/02/2024 1:44 AM EDT [facility] - 09/02/2024 2:45 AM EDT Testing was performed using the [employer] Respiratory Pathogen PCR Assay. All results must [...] MICROBIOLOGY - GENER AL ORDERABLES Final Result [facility] [address] [place] [address], * (ABNORMAL) CBC auto differential (09/02/2024 1:31 AM EDT) WBC 7.9 4.8 - 10.8 K/mcL LAB HEMETOLOGY METHOD 09/02/2024 2:24 AM EDT [facility] RBC 3.90(L) 4.50 - 5.50 M/mcL LAB HEMETOLOGY METHOD 09/02/2024 2:24 AM EDT [facility] Hemoglobin 11.9(L) 13.5 - 17.5 g/dL LAB HEMETOLOGY METHOD 09/02/2024 2:24 AM EDT [facility] Hematocrit 37.1(L) 42.0 - 54.0 % LAB HEMETOLOGY METHOD 09/02/2024 2:24 AM EDT [facility] MCV 95.4 79.0 - 98.0 FL LAB HEMETOLOGY METHOD 09/02/2024 2:24 AM [facility] MCH 30.6 27.0 - 32.0 pcg LAB HEMETOLOGY METHOD 09/02/2024 2:24 AM [facility] MCHC 32.1 32.0 - 37.0 g/dL LAB HEMETOLOGY METHOD 09/02/2024 2:24 AM [facility] RDW 13.9 11.0 - 15.0 % LAB HEMETOLOGY METHOD 09/02/2024 2:24 AM [facility] Platelets 250 130 - 400 K/mcL LAB HEMETOLOGY METHOD 09/02/2024 2:24 AM [facility] MPV 10.1 7.0 - 11.0 FL LAB HEMETOLOGY METHOD 09/02/2024 2:24 AM [facility] NRBC 0.0 <1.0 % LAB HEMETOLOGY METHOD 09/02/2024 2:24 AM [facility] NRBC Absolute 0.00 <0.10 K/mcL LAB HEMETOLOGY METHOD 09/02/2024 2:24 AM [facility] Neutrophils Relative 48.3 % LAB HEMETOLOGY METHOD 09/02/2024 2:24 AM [facility] Lymphocytes Relative 38.6 % LAB HEMETOLOGY METHOD 09/02/2024 2:24 AM [facility] Monocytes Relative 10.4 % LAB HEMETOLOGY METHOD 09/02/2024 2:24 AM [facility] Eosinophils Relative 2.0 % LAB HEMETOLOGY METHOD 09/02/2024 2:24 AM EDT [facility] Basophils Relative 0.6 % LAB HEMETOLOGY METHOD 09/02/2024 2:24 AM EDT [facility] Immature Granulocytes Relative 0.1 % LAB HEMETOLOGY METHOD 09/02/2024 2:24 AM EDT [facility] Neutrophils Absolute 3.82 1.50 - 7.00 K/mcL LAB HEMETOLOGY METHOD 09/02/2024 2:24 AM EDT [facility] Lymphocytes Absolute 3.06 1.00 - 5.00 K/mcL LAB HEMETOLOGY METHOD 09/02/2024 2:24 AM EDT [facility] Monocytes Absolute 0.82 0.20 - 1.00 K/mcL LAB HEMETOLOGY METHOD 09/02/2024 2:24 AM EDT [facility] Eosinophils Absolute 0.16 0.00 - 0.50 K/mcL LAB HEMETOLOGY METHOD 09/02/2024 2:24 AM EDT [facility] Basophils Absolute 0.05 0.00 - 0.20 K/mcL LAB HEMETOLOGY METHOD 09/02/2024 2:24 AM EDT [facility] Immature Granulocytes Absolute 0.01 0.00 - 0.03 K/mcL LAB HEMETOLOGY METHOD 09/02/2024 2:24 AM EDT [facility] Blood Venous blood specimen / Unknown Venipuncture / Unknown 09/02/2024 1:31 AM EDT 09/02/2024 1:45 AM EDT us Teena Farah MD LAB BLOOD ORDERABLES Fin al Result [facility] [address] [place] [address], * B-type natriuretic peptide (09/02/2024 1:31 AM EDT) BNP 18 <=100 pcg/mL LAB CHEMISTRY METHOD 09/02/2024 2:17 AM EDT [facility] Blood Venous blood specimen / Unknown Venipuncture / Unknown 09/02/2024 1:31 AM EDT 09/02/2024 1:45 AM EDT Teena Farah MD LAB BLOOD ORDERABLES Fin al Result Performing Organization Address [facility] de Phone Number [facility] [address] [place] [address], [place] [phone] * Magnesium (09/02/2024 1:31 AM EDT) [facility] Magnesium 2.0 1.9 - 2.6 mg/dL LAB CHEMISTRY METHOD 09/02/2024 2:11 AM EDT [facility] Comment:Hemolysis present Blood Venous blood specimen / Unknown Venipuncture / Unknown 09/02/2024 1:31 AM EDT 09/02/2024 1:45 AM EDT Teena Farah MD LAB BLOOD ORDERABLES Fin al Result Performing Organization Address [facility] de Phone Number [facility] [address] [place] [address], [place] [phone] * Lipase (09/02/2024 1:31 AM EDT) [facility] Lipase 44 13 - 75 unit/L LAB CHEMISTRY METHOD 09/02/2024 2:11 AM EDT [facility] Blood Venous blood specimen / Unknown Venipuncture / Unknown 09/02/2024 1:31 AM EDT 09/02/2024 1:45 AM EDT us Teena Farah MD LAB BLOOD ORDERABLES Fin al Result Performing Organization Address [facility] de Phone Number [facility] [address] [place] [address], [place] [phone] * (ABNORMAL) Comprehensive metabolic panel (09/02/2024 1:31 AM EDT) Sodium 138 133 - 145 mmol/L LAB CHEMISTRY METHOD 09/02/2024 2:11 AM [facility] Potassium 4.8 3.5 - 5.5 mmol/L LAB CHEMISTRY METHOD 09/02/2024 2:11 AM [facility] Comment:Hemolysis present Chloride 108 96 - 110 mmol/L LAB CHEMISTRY METHOD 09/02/2024 2:11 AM [facility] CO2 24 21 - 32 mmol/L LAB CHEMISTRY METHOD 09/02/2024 2:11 AM [facility] Anion Gap 6 3 - 11 LAB CHEMISTRY METHOD 09/02/2024 2:11 AM [facility] Glucose 178(H) 70 - 100 mg/dL LAB CHEMISTRY METHOD 09/02/2024 2:11 AM [facility] BUN 16 5 - 25 mg/dL LAB CHEMISTRY METHOD 09/02/2024 2:11 AM [facility] Creatinine 1.74(H) 0.70 - 1.30 mg/dL LAB CHEMISTRY METHOD 09/02/2024 2:11 AM [facility] eGFR 43(L) >=60 mL/min/1. 73m2 LAB CHEMISTRY METHOD 09/02/2024 2:11 AM [facility] Comment:Calculation based on the Chronic Kidney Disease Epidemiology Collaboration (CKD-EPI) equation refit without adjustment for race. BUN/Creatinine Ratio 9.2 LAB CHEMISTRY METHOD 09/02/2024 2:11 AM [facility] Calcium 8.0(L) 8.5 - 10.5 mg/dL LAB CHEMISTRY METHOD 09/02/2024 2:11 AM [facility] AST (SGOT) 39 10 - 42 unit/L LAB CHEMISTRY METHOD 09/02/2024 2:11 AM EDT [facility] Comment:Hemolysis present ALT (SGPT) 25 10 - 60 unit/L LAB CHEMISTRY METHOD 09/02/2024 2:11 AM EDT [facility] Alkaline Phosphatase 114 42 - 121 unit/L LAB CHEMISTRY METHOD 09/02/2024 2:11 AM EDT [facility] Total Protein 6.3 6.0 - 8.0 g/dL LAB CHEMISTRY METHOD 09/02/2024 2:11 AM EDT [facility] Albumin 3.0(L) 3.2 - 5.0 g/dL LAB CHEMISTRY METHOD 09/02/2024 2:11 AM EDT [facility] Total Bilirubin 0.3 0.0 - 1.4 mg/dL LAB CHEMISTRY METHOD 09/02/2024 2:11 AM EDT [facility] Blood Venous blood specimen / Unknown Venipuncture / Unknown 09/02/2024 1:31 AM EDT 09/02/2024 1:45 AM EDT Teena Farah MD LAB BLOOD ORDERABLES Fin al Result [facility] [address] [place] [address], * ECG 12 lead (09/02/2024 1:06 AM EDT) Ventricular Rate ECG 73 BPM GEM[facility] Atrial Rate 73 BPM [facility] P-R Interval 142 ms GEMUSE QRS Duration 94 ms GEMUSE Q-T Interval 410 ms GEMUSE QTc 451 ms GEMUSE P Wave [place] 66 degrees GEMUSE R [place] 10 degrees GEMUSE T [place] 10 degrees GEMUSE ECG Interpretation Normal sinus rhythm Normal ECG When compared with ECG of 01-APR-2023 17:08, No significant change was found Confirmed by STEWART SEAMAN ([id number]) on 09/02/2024 12:54:31 PM GEMUSE 09/02/2024 1:06 AM EDT 09/02/2024 12:54 PM EDT us Teena Farah MD ECG ORDERABLES Final Re sult GEMUSE from Last 3 Months Insurance [facility] Care Teams Educational/Development Assistant Relationship Specialty Start Date End Date Shawn Johnson MD [address] [place] [address] PCP - General 12/23/23
[2024-10-20 10:51] LABS: MANUAL DIFF FLAG NO
[2024-10-20 10:57] LABS: Hematocrit 39.2 % (42.0-52.0); Hemoglobin 13.5 g/dl (14.0-18.0); Imm Gran Abs Auto 0.01 X10*3/uL (0.00-0.03); Imm Gran Pct Auto 0.1 % (0.0-0.4); Lymphocytes Absolute Auto 3.3 X10*3/uL (1.2-4.9); Mean Corpuscular HGB Conc 34.4 g/dl (31.0-36.0); Mean Corpuscular Hemoglobin 30.8 pg (27.0-33.0); Mean Corpuscular Volume 89.5 fL (80.0-98.0); NRBC Abs Auto 0.000 X10*3/uL (0.0-0.012); NRBC Pct Auto 0.0 /100WBC (0.0-0.2); Platelet Count 240 X10*3/uL (160-400); Red Blood Count 4.38 X10*6/uL (4.60-5.80); White Blood Count 7.3 X10*3/uL (4.8-10.8)
[2024-10-20 11:54] LABS: Alanine Aminotransferase 19 U/L (0-40); Albumin Level 4.0 g/dL (3.5-5.0); Alkaline Phosphatase 110 U/L (39-117); Anion Gap 10 (12-20); Aspartate Amino Transferase 23 U/L (5-37); Blood Urea Nitrogen 17 mg/dL (9-16); Calcium 8.4 mg/dL (8.4-10.2); Carbon Dioxide 24 mmol/L (22-29); Chloride 111 mmol/L (96-108); Estimated Glomerular Filt Rate 40; Potassium 3.9 mmol/L (3.3-5.1); Sodium 141 mmol/L (135-145); Total Protein 7.1 g/dL (6.5-8.0)
[2024-10-20 12:37] LABS: Hemoglobin A1C 176.0086 umol/L; Total Hemoglobin (HGBA1C) 3554.9415 umol/L
[2024-10-20 12:56] LABS: Free T4 (Free Thyroxine) 1.08 ng/dL (0.71-1.85)
== END 2024-10-20 09:14 | disposition home or self-care (01) ==
LOC: HO.HMGCLDS 09:13
PROVIDERS: PCP Internal Medicine; Visit Provider Internal Medicine
DX: F11.20 Opioid dependence, uncomplicated (principal); I10 Essential (primary) hypertension; E66.01 Morbid (severe) obesity due to excess calories; Z68.38 Body mass index [BMI] 38.0-38.9, adult; E78.9 Disorder of lipoprotein metabolism, unspecified; M54.16 Radiculopathy, lumbar region; E10.42 Type 1 diabetes mellitus with diabetic polyneuropathy; E10.21 Type 1 diabetes mellitus with diabetic nephropathy; M53.3 Sacrococcygeal disorders, not elsewhere classified
CPT/HCPCS: 36415; 80053; 83036; 83721; 84439; 84443; 85025

== ENCOUNTER 2024-11-07 13:46 | Outpatient (AMB) | payer OTHER, SELFPAY ==
[2024-11-07 13:49] VITALS: BP 116/74; PULSE 80; O2SAT 97; BMI 38.2
--- NOTE | 2024-11-07 13:49 | MHC.PC.OV ---
Vital Signs 11/07/24 13:49 Height 5 ft 7 in Weight 244 lb BMI 38.2 BP 116/74 Blood Pressure Location Lt brachial Position Sitting Pulse 80 Pulse Source Pulse Oximeter Pulse Oximetry (%) 97 Intake Visit Reasons: 1 month f/up Allergies No Known Allergies Allergy (Verified 11/07/24 13:49) Medication List - Last Reconciled 11/07/24 by Shawn Johnson MD amlodipine-benazepril 10-20 mg 1 cap PO DAILY aspirin (Adult Low Dose Aspirin) 81 mg PO DAILY atorvastatin 10 mg PO BEDTIME blood sugar diagnostic (FreeStyle Lite Strips) USE TO CHECK BLOOD SUGAR 3 TIMES DAILY: FASTING AND BEFORE MEALS cholecalciferol (vitamin D3) 25 mcg PO DAILY 90 days dorzolamide-timolol 22.3-6.8 mg/mL 1 drp ophthalmic (eye) BID dulaglutide (Trulicity) 4.5 mg (0.5 mL) subcut QWEEK 90 days flash glucose sensor (FreeStyle Ye 2 Sensor kit) Use with sensor to monitor blood sugar TID and as needed for s/s hypo/hyperglycemia fluticasone propionate 50 mcg/actuation (Allergy Relief (fluticasone)) 1 spray intranasal DAILY 30 days FreeStyle Ye 2 Fenton (flash glucose scanning reader) Use with sensor to monitor blood sugar TID and as needed for s/s hypo/hyperglycemia NS FreeStyle Lite Meter (blood-glucose meter) Use to check blood sugar 4 times daily, fasting and AC NS insulin aspart U-100 (Novolog FlexPen U-100 Insulin aspart) 15 units (0.15 mL) subcut TID 90 days [insulin pen needles 4 times a day] lamotrigine 100 mg PO BID lancets (FreeStyle Lancets) Use to check blood sugar QID, fasting and AC Lantus Solostar U-100 Insulin (insulin glargine) subcutaneously 2 times a day; 50 units at night and 20 units in the morning 90 days NS levothyroxine 50 mcg PO DAILY lidocaine 5% (Lidoderm) 1 patch topical DAILY PRN MDD remove after 12 hours metoclopramide HCl (Reglan) 10 mg PO Q6H 7 days oxycodone-acetaminophen 5-325 mg (Percocet) 1 tab PO Q8H PRN 30 days pantoprazole 20 mg PO DAILY pen needle, diabetic (Ultra-Fine Pen Needle) qid Tobacco use date assessed: 09/20/24 Fall risk assessment: No Falls in past year Last assessed Fall Risk: 11/07/24 Dental Screening Dental Screen Date: 08/25/24 HPI 1 month f/up HPI Details Chief Complaint The patient presents with ongoing pain requiring adjustments to medication. History The patient is a 64-year-old male presenting with pain management and medication review. Chronic Pain: - The patient reports experiencing severe pain that requires management three times a day. - Pain affects the patient's ability to cope and persists despite previous pain management strategies. - Initially managed with medication twice daily; now increased to three times per day due to the severity. - Experiences significant discomfort if more than eight hours pass between doses. Renal function concerns: - The patient's creatinine levels have risen from 1.5 in April to 1.73 currently, indicating worsening kidney function. - The patient has an appointment with a solar field service technician next week. Anemia: - Hemoglobin level of 13.5, noted to be slightly below normal (normally 14), was referred to as a mild anemia. - Stable compared to prior tests. Diabetes: - Hemoglobin A1c is currently 6.7, reflecting an improvement in glycemic control. Thyroid Function: - The patient is taking 50 mcg of levothyroxine without appropriate timing related to meals. - Thyroid function tests showed slight abnormality. Recent Labs: - Recent bloodwork discussed with the patient, including kidney function tests and hemoglobin levels. Medical History: - Severe Osteoarthritis multiple joints - Chronic Back Pain - Hypothyroidism - Insulin-Dependent Diabetes Mellitus - Dyslipidemia - Hypertension - Obesity Medications: - Oxycodone, every 8 hours for pain management related to osteoarthritis. - Levothyroxine 50 mg for hypothyroidism. - Atorvastatin 10 mg for lipid disorder. - Amlodipine and Benazepril 10-20 mg daily for hypertension. - Lamotrigine 100 mg BID, uncertain adherence, last filled in 2021. Social History: - The patient reports challenges managing medication timing and adherence. - No discussion of smoking, alcohol use, employment, or other social factors. Problem List - Chronic Pain - Chronic Kidney Disease - Type 2 Diabetes Mellitus - Hypothyroidism - IDDM Diagnostic results - Labs: Hemoglobin 13.5, Creatinine 1.73, Hemoglobin A1c 6.7 [place] of Care - The patient is scheduled to visit a solar field service technician for renal function evaluation. - Identified solar field service technician is Dr. Torey Fine. Patient Instructions - Take levothyroxine on an empty stomach to ensure proper absorption. - Continue to monitor blood sugar levels, attending upcoming nephrology appointment. - Follow-up with the provided printout of blood tests during the nephrology visit. f/u 4 wks Review of Systems General: No fever no chills neurological: No headaches no dizziness ear nose throat: No sore throat no hearing difficulty no ear pain cardiovascular: No syncope, no chest pain, no palpitations gastrointestinal: No nausea vomiting or diarrhea endocrine: No polyuria polydipsia no heat intolerance genitourinary: No dysuria skin: No new complaints Physical Exam general: No acute distress HEENT: No acute findings neck: Supple respiratory system: Able to talk in full sentences, no audible wheeze no stridor cardiovascular: S1-S2 RRR gastrointestinal: Pain present extremities: No new findings SHALE MINER: Alert awake oriented x3 motor sensory intact skin: Normal turgor PFSH Medical History Hypothyroid Glaucoma Chronic SI joint pain Lumbar radiculopathy Neuropathy BPH (benign prostatic hyperplasia) Elevated cholesterol GERD (gastroesophageal reflux disease) CKD (chronic kidney disease) Diabetes HTN (hypertension) Surgical History Hx of cataract surgery History of surgery on lower extremity History of shoulder surgery Family History Father Diabetes Hypertension Cancer Mother Hypertension Diabetes Social History Housing: House Patient Tobacco Use Status: Never used Tobacco e-Cigarette/Vaping Use: Never Used service: No Current occupational status: disabled Cognitive needs: No Hearing needs: No Vision needs: Yes Questionnaire Thrive Questionnaire Date Thrive assessed: 11/07/24 I am a: Patient What is your living situation today?: I have a steady place to live Within the past 12 months, did the food you bought not last and you didn't have the money to get more?: Sometimes True Within the past 12 months, did you worry whether your food would run out before you got money to buy more?: Often true Do you have trouble paying for medicines?: No Do you have trouble getting transportation to medical appointments?: Yes Do you have trouble paying your heating and electricity bill?: Yes Do you have trouble taking care of your child, family member or friend?: No Do you have trouble with day-to-day activities such as bathing, preparing meals, shopping, managing finances, etc.?: No Are you currently unemployed and looking for a job?: I choose not to answer this question Are you interested in more education?: I choose not to answer this question Please select the resources that you would like help with: None Currently or been in a relationship where the following occur: I choose not to answer THRIVE Score: 4 AMINATA-7 AMB Questionnaire AMINATA-7 Date AMINATA - 7 assessed: 10/13/24 Source: Developed by Drs. Josiah Bailey, Gema Zimmerman, Brian Jo and colleagues, with an educational lovely from [employer]. Physical exam (Primary Care) Vital Signs: Last Vital Signs Pulse 80 11/07/24 13:49 BP 116/74 11/07/24 13:49 Pulse Ox 97 11/07/24 13:49 BMI result Body Mass Index 38.2 Tobacco/Smoking Status: Tobacco use Status Tobacco use date assessed 09/20/24 11/07/24 13:50 Patient Tobacco Use Status Never used Tobacco 11/07/24 13:50 e-Cigarette/Vaping Use Never Used 11/07/24 13:50 Thrive Assessment: Date of Thrive Assessment Date Thrive assessed 11/07/24 11/07/24 13:50 Currently or been in a relationship where the following occur: I choose not to answer Coding Level of Care Code Est Pt Level 4 (44387) Complex EM visit Add On G2211 Diagnoses Lumbar spondylosis M47.816 Diabetic polyneuropathy associated with type 1 diabetes mellitus E10.42 Diabetes mellitus type: type 1 Diabetes mellitus complication detail: diabetic polyneuropathy Myofascial pain syndrome M79.18 Polyarthritis M13.0 Sacroiliac joint dysfunction of left side M53.3 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 E10.21 Diabetes mellitus type: type 1 Chronic GERD K21.9 Insulin dependent diabetes mellitus type IA E10.9 Lipid disorder E78.9 PAD (peripheral artery disease) I73.9 Hypertension, essential I10 Narcotic dependence F11.20 Assessment & Plan Assessment & Plan (1) Lumbar spondylosis: Code(s): M47.816 - Spondylosis without myelopathy or radiculopathy, lumbar region Category: Medical (2) Diabetic neuropathy: Code(s): E11.40 - Type 2 diabetes mellitus with diabetic neuropathy, unspecified Category: Medical Qualifiers: Diabetes mellitus type: type 1 Diabetes mellitus complication detail: diabetic polyneuropathy Qualified Code(s): E10.42 - Type 1 diabetes mellitus with diabetic polyneuropathy (3) Myofascial pain syndrome: Code(s): M79.18 - Myalgia, other site Category: Medical (4) Polyarthritis: Code(s): M13.0 - Polyarthritis, unspecified Category: Medical (5) Sacroiliac joint dysfunction of left side: Code(s): M53.3 - Sacrococcygeal disorders, not elsewhere classified Category: Medical (6) Diabetic nephropathy: Code(s): E11.21 - Type 2 diabetes mellitus with diabetic nephropathy Category: Medical Qualifiers: Diabetes mellitus type: type 1 Qualified Code(s): E10.21 - Type 1 diabetes mellitus with diabetic nephropathy (7) Chronic GERD: Comment: Dietary modifications, opportunity for improvement Code(s): K21.9 - Gastro-esophageal reflux disease without esophagitis Category: Medical (8) Insulin dependent diabetes mellitus type IA: Code(s): E10.9 - Type 1 diabetes mellitus without complications Category: Medical (9) Lipid disorder: Code(s): E78.9 - Disorder of lipoprotein metabolism, unspecified Category: Medical (10) PAD (peripheral artery disease): Code(s): I73.9 - Peripheral vascular disease, unspecified Category: Medical (11) Hypertension, essential: Code(s): I10 - Essential (primary) hypertension Category: Medical (12) Narcotic dependence: Code(s): F11.20 - Opioid dependence, uncomplicated Category: Medical Plan Chief Complaint The patient presents with ongoing pain requiring adjustments to medication. History The patient is a 64-year-old male presenting with pain management and medication review. Chronic Pain: - The patient reports experiencing severe pain that requires management three times a day. - Pain affects the patient's ability to cope and persists despite previous pain management strategies. - Initially managed with medication twice daily; now increased to three times per day due to the severity. - Experiences significant discomfort if more than eight hours pass between doses. Renal function concerns: - The patient's creatinine levels have risen from 1.5 in April to 1.73 currently, indicating worsening kidney function. - The patient has an appointment with a solar field service technician next week. Anemia: - Hemoglobin level of 13.5, noted to be slightly below normal (normally 14), was referred to as a mild anemia. - Stable compared to prior tests. Diabetes: - Hemoglobin A1c is currently 6.7, reflecting an improvement in glycemic control. Thyroid Function: - The patient is taking 50 mcg of levothyroxine without appropriate timing related to meals. - Thyroid function tests showed slight abnormality. Recent Labs: - Recent bloodwork discussed with the patient, including kidney function tests and hemoglobin levels. Medical History: - Severe Osteoarthritis multiple joints - Chronic Back Pain - Hypothyroidism - Insulin-Dependent Diabetes Mellitus - Dyslipidemia - Hypertension - Obesity Medications: - Oxycodone, every 8 hours for pain management related to osteoarthritis. - Levothyroxine 50 mg for hypothyroidism. - Atorvastatin 10 mg for lipid disorder. - Amlodipine and Benazepril 10-20 mg daily for hypertension. - Lamotrigine 100 mg BID, uncertain adherence, last filled in 2021. Social History: - The patient reports challenges managing medication timing and adherence. - No discussion of smoking, alcohol use, employment, or other social factors. Problem List - Chronic Pain - Chronic Kidney Disease - Type 2 Diabetes Mellitus - Hypothyroidism - IDDM Diagnostic results - Labs: Hemoglobin 13.5, Creatinine 1.73, Hemoglobin A1c 6.7 [place] of Care - The patient is scheduled to visit a solar field service technician for renal function evaluation. - Identified solar field service technician is Dr. Torey Fine. Patient Instructions - Take levothyroxine on an empty stomach to ensure proper absorption. - Continue to monitor blood sugar levels, attending upcoming nephrology appointment. - Follow-up with the provided printout of blood tests during the nephrology visit. f/u 4 wks Medications: Refilled oxycodone-acetaminophen 5-325 mg (Percocet) Partial Fill upon patient request. 1 tab PO Q8H PRN 90 tabs 0RF pain 30 days M13.0 - Polyarthritis, unspecified, M25.511 - Pain in right shoulder, M47.816 - Spondylosis without myelopathy or radiculopathy, lumbar region
--- OUTSIDE RECORDS SUMMARY | 2024-11-07 15:02 | XMS_ITS | Encounter Summary ---
Author Organization [facility] Address [address] [place] [address] Phone Care Team Providers Care Consumer Educator Name Role Phone Edward Witt MD Primary Care Provider [phone] Encounter Details Date Type Department Care Team (Late st Contact Info) Description 07/09/2023 Documentation Only [facility] [address] [place] [address] Emily Barnhart [address] [place] [address] Social History Tobacco Use Types [...] Visit [facility] [address] [place] [address] Torey Tom MD [address] [place] [address] [place] [address] documented as of this encounter Visit Diagnoses Not on filedocumented in this encounter Care Teams Consumer Educator Relationship Specialty Start Date End Date Edward Witt MD [address] [place] [address] PCP - General Internal Medicine 05/09/24 documented as of this encounter
--- OUTSIDE RECORDS SUMMARY | 2024-11-07 15:02 | XMS_ITS | Clinical Summary ---
Author Organization [address] [place] [address] Address [address] [place] [address] Phone Care Team Providers Care Crime Scene Technician Name Role Phone Shawn Johnson MD Primary Care Provider [phone] Allergies No known active allergies Medications amLODIPine-carlota [...] Encounters Date Type Department Care Team Description 10/31/2024 2:00 PM EDT Office Visit Orthopedic Surgery [facility] [address] [phone] Jose Lloyd DPM Controlled type 2 diabetes with neuropathy (CMS/HCC V24, CMS/HCC V28) (Primary Dx); Arthritis of both feet; Hammertoes of both feet; Pain in toes of both feet; Dermatophytosis, nail 09/02/2024 12:28 AM EDT - 09/02/2024 6:[address] [facility] Emergency [address] [place] [phone] Teena Farah MD Atypical pneumonia (Primary Dx) [...] Care Team (Late st Contact Info) Description 01/02/2025 2:00 PM EDT Office Visit Orthopedic Surgery - [place] [address] [phone] Jose Lloyd DPM [address] [address] Health Maintenance Due Date Last Done Comments COVID-19 Vaccine (#1) 1965 Diabetes: Annual Foot Exam 1970 Diabetes: Annual Retina Eye Exam 1970 Cholesterol Screening (Lipid Panel) 02/18/2022 Colorectal Cancer Screening: Colonoscopy 02/18/2022 HIV Screening 02/18/2022 Hepatitis C Screening 02/18/2022 Social Influencers of Health Screening 02/18/2022 Diabetes: Annual Urine Albumin-Creatinine Ratio (uACR) 03/03/2024 Diabetes: Blood Sugar Contro l Test (HGBA1C) 03/03/2024 04/10/2022 Depression Screening 03/22/2024 Zoster Vaccines (2 of 2) 11/13/2024 09/18/2024 Influenza Vaccine (#1) 2024 12/22/2023 Diabetes: Annual GFR (Glomer ular Filtration Rate) 09/02/2025 09/02/2024 Hypertension/CHF/CAD Annual BMP Blood Test 09/02/2025 09/02/2024 DTaP,Tdap,and Td Vaccines (2 - Td or Tdap) 12/07/2033 12/08/2023 Pneumococcal Vaccine: 50+ Years Completed RSV Immunization Adult Patients Completed 06/30/202 5 HIB Vaccines Aged Out No longer eligi [...] Results * ECG-Annotated (09/04/2024) us Provider Onbase MD ECG ORDERABLES Final Result * (ABNORMAL) POCT Glucose, blood (09/02/2024 6:03 AM EDT) Glucose POCT 150(H) 70 - 100 mg/dL 09/02/2024 6:04 AM EDT [facility] Blood Capillary blood specimen / Unknown 09/02/2024 6:03 AM EDT 09/02/2024 6:05 AM EDT us Teena Farah MD LAB POINT OF CAR E TEST DOCKED DEVICE UNSOLICITED RESULTS Final Result [facility] [address] [place] [address], [place] [phone] * XR Chest 2 Views (09/02/2024 3:24 [...] Signed Date: 09/02/2024 08:45 ET Workstation ID: [id number] Transcribed By: Self Edit Transcribed Date: 09/02/2024 [...] Signed Date: 09/02/2024 08:45 ET Workstation ID: [id number] Transcribed By: Self Edit Transcribed Date: 09/02/2024 08:37 ET Teena Farah MD IMG XR PROCEDURES Final Result * Troponin I high sensitivity (09/02/2024 3:08 AM EDT) Only the most recent of2 resultswithin the time period is included. High Sensitivity Troponin I 12 <=79 ng/L LAB CHEMISTRY METHOD 09/02/2024 3:54 AM EDT [facility] [...] Result [facility] [address] [place] [address], [place] [phone] * Respiratory virus panel molecular study (09/02/2024 1:31 AM EDT) [facility] Adenovirus Detection by PCR Not Detected [...] AM EDT [facility] Swab Both anterior nares / Unknown Non-blood Collection / Unknown 09/02/2024 1:31 AM EDT 09/02/2024 1:44 AM EDT Narrative [facility] - 09/02/2024 2:45 AM EDT Testing was performed using the OrderBorder Respiratory Pathogen PCR Assay. All results must [...] Result [facility] [address] [place] [address], * (ABNORMAL) CBC auto differential (09/02/2024 1:31 AM EDT) [facility] WBC 7.9 4.8 - 10.8 K/mcL LAB HEMETOLOGY METHOD 09/02/2024 2:24 AM EDT [facility] RBC 3.90(L) 4.50 - 5.50 M/mcL LAB HEMETOLOGY METHOD 09/02/2024 2:24 AM EDT [facility] Hemoglobin 11.9(L) 13.5 - 17.5 g/dL LAB HEMETOLOGY METHOD 09/02/2024 2:24 AM [facility] Hematocrit 37.1(L) 42.0 - 54.0 % LAB HEMETOLOGY METHOD 09/02/2024 2:24 AM EDT [facility] MCV 95.4 79.0 - 98.0 FL LAB HEMETOLOGY METHOD 09/02/2024 2:24 AM [facility] MCH 30.6 27.0 - 32.0 pcg LAB HEMETOLOGY METHOD 09/02/2024 2:24 AM [facility] MCHC 32.1 32.0 - 37.0 g/dL LAB HEMETOLOGY METHOD 09/02/2024 2:24 AM [facility] RDW 13.9 11.0 - 15.0 % LAB HEMETOLOGY METHOD 09/02/2024 2:24 AM [facility] Platelets 250 130 - 400 K/mcL LAB HEMETOLOGY METHOD 09/02/2024 2:24 AM [facility] MPV 10.1 7.0 - 11.0 FL LAB HEMETOLOGY METHOD 09/02/2024 2:24 AM [facility] NRBC 0.0 <1.0 % LAB HEMETOLOGY METHOD 09/02/2024 2:24 AM [facility] NRBC Absolute 0.00 <0.10 K/mcL LAB HEMETOLOGY METHOD 09/02/2024 2:24 AM [facility] Neutrophils Relative 48.3 % LAB HEMETOLOGY METHOD 09/02/2024 2:24 AM [facility] Lymphocytes Relative 38.6 % LAB HEMETOLOGY METHOD 09/02/2024 2:24 AM EDT [facility] Monocytes Relative 10.4 % LAB HEMETOLOGY METHOD 09/02/2024 2:24 AM [facility] Eosinophils Relative 2.0 % LAB HEMETOLOGY METHOD 09/02/2024 2:24 AM EDT [facility] Basophils Relative 0.6 % LAB HEMETOLOGY METHOD [facility] Immature Granulocytes Relative 0.1 % LAB HEMETOLOGY METHOD 09/02/2024 2:24 AM T [facility] Neutrophils Absolute 3.82 1.50 - 7.00 K/mcL LAB HEMETOLOGY METHOD 09/02/2024 2:24 AM [facility] Lymphocytes Absolute 3.06 1.00 - 5.00 K/mcL LAB HEMETOLOGY METHOD 09/02[facility]2024 [facility] Monocytes Absolute 0.82 0.20 - 1.00 K/mcL LAB HEMETOLOGY METHOD 09/02/2024 2:24 AM [facility] Eosinophils Absolute 0.16 0.00 - 0.50 K/mcL LAB HEMETOLOGY METHOD 09/02/2024 2:24 AM [facility] Basophils Absolute 0.05 0.00 - 0.20 K/mcL LAB HEMETOLOGY METHOD 09/02/2024 2:24 AM T [facility] Immature Granulocytes Absolute 0.01 0.00 - 0.03 K/mcL LAB HEMETOLOGY METHOD 09/02/2024 2:24 AM [facility] Blood Venous blood specimen / Unknown Venipuncture / Unknown 09/02/2024 1:31 AM EDT 09/02/2024 1:45 AM EDT us Teena Codie Gagan MD LAB BLOOD ORDERABLES Fin al Result Performing Organization Address City/[facility]/ZIP Co de Phone Number [facility] [address] [place] [address], [place] [phone] * B-type natriuretic peptide (09/02/2024 1:31 AM EDT) BNP 18 <=100 pcg/mL LAB CHEMISTRY METHOD 09/02/2024 2:17 AM EDT [facility] Blood Venous blood specimen / Unknown Venipuncture / Unknown 09/02/2024 1:31 AM EDT 09/02/2024 1:45 AM EDT Teena Farah MD LAB BLOOD ORDERABLES Fin al Result Performing Organization Address [facility] Co de Phone Number [facility] [address] [place] [address], [place] [phone] * Magnesium (09/02/2024 1:31 AM EDT) Pathologist [facility] Magnesium 2.0 1.9 - 2.6 mg/dL LAB CHEMISTRY METHOD 09/02/2024 2:11 AM EDT [facility] Comment:Hemolysis present Blood Venous blood specimen / Unknown Venipuncture / Unknown 09/02/2024 1:31 AM EDT 09/02/2024 1:45 AM EDT Teena Farah MD LAB BLOOD ORDERABLES Fin al Result Performing Organization Address City/[facility]/ZIP Co de Phone Number [facility] [address] [place] [address], [place] [phone] * Lipase (09/02/2024 1:31 AM EDT) Lipase 44 13 - 75 unit/L LAB CHEMISTRY METHOD 09/02/2024 2:11 AM EDT [facility] Blood Venous blood specimen / Unknown Venipuncture / Unknown 09/02/2024 1:31 AM EDT 09/02/2024 1:45 AM EDT Teena Farah MD LAB BLOOD ORDERABLES Fin al Result [facility] [address] [place] [address], * (ABNORMAL) Comprehensive metabolic panel (09/02/2024 1:31 AM EDT) Sodium 138 133 - 145 mmol/L LAB CHEMISTRY METHOD 09/02/2024 2:11 AM [facility] Potassium 4.8 3.5 - 5.5 mmol/L LAB CHEMISTRY METHOD 09/02/2024 2:11 AM [facility] Comment:Hemolysis present Chloride 108 96 - 110 mmol/L LAB CHEMISTRY METHOD 09/02/2024 2:11 AM [facility] CO2 24 21 - 32 mmol/L LAB CHEMISTRY METHOD 09/02/2024 2:11 AM [facility] Anion Gap 6 3 - 11 LAB CHEMISTRY METHOD 09/02/2024 2:11 AM [facility] Glucose 178(H) 70 - 100 mg/dL LAB CHEMISTRY METHOD 09/02/2024 2:11 AM [facility] BUN 16 5 - 25 mg/dL LAB CHEMISTRY METHOD 09/02/2024 2:11 AM [facility] Creatinine 1.74(H) 0.70 - 1.30 mg/dL LAB CHEMISTRY METHOD 09/02/2024 2:11 AM [facility] eGFR 43(L) >=60 mL/min/1. 73m2 LAB CHEMISTRY METHOD 09/02/2024 2:11 AM [facility] Comment:Calculation based on the Chronic Kidney Disease Epidemiology Collaboration (CKD-EPI) equation refit without adjustment for race. BUN/Creatinine Ratio 9.2 LAB CHEMISTRY METHOD 09/02/2024 2:11 AM [facility] Calcium 8.0(L) 8.5 - 10.5 mg/dL LAB CHEMISTRY METHOD 09/02/2024 2:11 AM [facility] AST (SGOT) 39 10 - 42 unit/L LAB CHEMISTRY METHOD 09/02/2024 2:11 AM [facility] Comment:Hemolysis present ALT (SGPT) 25 10 - 60 unit/L LAB CHEMISTRY METHOD 09/02/2024 2:11 AM [facility] Alkaline Phosphatase 114 42 - 121 unit/L LAB CHEMISTRY METHOD 09/02/2024 2:11 AM [facility] Total Protein 6.3 6.0 - 8.0 g/dL LAB CHEMISTRY METHOD 09/02/2024 2:11 AM [facility] Albumin 3.0(L) 3.2 - 5.0 g/dL LAB CHEMISTRY METHOD 09/02/2024 2:11 AM [facility] Total Bilirubin 0.3 0.0 - 1.4 mg/dL LAB CHEMISTRY METHOD 09/02/2024 2:11 AM [facility] Blood Venous blood specimen / Unknown Venipuncture / Unknown 09/02/2024 1:31 AM EDT 09/02/2024 1:45 AM EDT us Teena Farah MD LAB BLOOD ORDERABLES Fin al Result [facility] [address] [place] [address], * ECG 12 lead (09/02/2024 1:06 AM EDT) Ventricular Rate ECG 73 BPM G[facility] Atrial Rate 73 BPM GEM[facility] P-R Interval 142 ms GEMUSE QRS Duration 94 ms GEMUSE Q-T Interval 410 ms GEMUSE QTc 451 ms GEMUSE P Wave [place] 66 degrees GEMUSE R [place] 10 degrees GEMUSE T [place] 10 degrees GEMUSE ECG Interpretation Normal sinus rhythm Normal ECG When compared with ECG of 01-APR-2023 17:08, No significant change was found Confirmed by STEWART SEAMAN ([id number]) on 09/02/2024 12:54:31 PM GEM[facility] 09/02/2024 1:06 AM EDT 09/02/2024 12:54 PM EDT us Teena Farah MD ECG ORDERABLES Final Re sult GEMUSE from Last 3 Months Insurance [facility] Care Teams Crime Scene Technician Relationship Specialty Start Date End Date Shawn Johnson MD [address] [place] [phone] PCP - General 12/23/23
== END 2024-11-07 14:37 | disposition home or self-care (01) ==
LOC: HO.HMCC 13:47
PROVIDERS: PCP Internal Medicine; Visit Provider Internal Medicine
DX: M47.816 Spondylosis without myelopathy or radiculopathy, lumbar region (principal); E10.42 Type 1 diabetes mellitus with diabetic polyneuropathy; E10.21 Type 1 diabetes mellitus with diabetic nephropathy; F11.20 Opioid dependence, uncomplicated; M79.18 Myalgia, other site; M13.0 Polyarthritis, unspecified; M53.3 Sacrococcygeal disorders, not elsewhere classified; K21.9 Gastro-esophageal reflux disease without esophagitis; E78.9 Disorder of lipoprotein metabolism, unspecified; I73.9 Peripheral vascular disease, unspecified; I10 Essential (primary) hypertension

== ENCOUNTER → 2024-11-07 13:46 | Outpatient (BNVA) | payer OTHER, SELFPAY | PROVIDERS: PCP Internal Medicine; Visit Provider Internal Medicine | DX: E10.42 Type 1 diabetes mellitus with diabetic polyneuropathy (principal); E10.51 Type 1 diabetes mellitus with diabetic peripheral angiopathy without gangrene; E10.21 Type 1 diabetes mellitus with diabetic nephropathy; G89.29 Other chronic pain; M47.816 Spondylosis without myelopathy or radiculopathy, lumbar region; D64.9 Anemia, unspecified; M79.18 Myalgia, other site; M13.0 Polyarthritis, unspecified; M53.3 Sacrococcygeal disorders, not elsewhere classified; K21.9 Gastro-esophageal reflux disease without esophagitis; E78.9 Disorder of lipoprotein metabolism, unspecified; F11.20 Opioid dependence, uncomplicated; I10 Essential (primary) hypertension; Z79.899 Other long term (current) drug therapy | CPT/HCPCS: 99212 ==

== ENCOUNTER 2024-11-30 11:40 | Outpatient (REF) | payer OTHER, SELFPAY ==
[2024-11-30 14:27] LABS: Prostate Specific Antigen 0.89 ng/mL (<0.05-4.0)
--- OUTSIDE RECORDS SUMMARY | 2024-11-30 16:02 | XMS_ITS | Encounter Summary ---
Author Organization [facility], Address [address] [place] [address] Phone Care Team Providers Care Senior Applications Engineer Name Role Phone Shawn Johnson MD Primary Care Provider Encounter Details Date Type Department Care Team (Late st Contact Info) Description 03/24/2022 Documentation Only [facility] [address] [place] [address] Shawn Johnson MD [facility] [place] [address] Social History Tobacco Use Types Packs/Day Years Used Date Smoking Tobacco: Never Assessed Sex and Gender Information Value Date Recorded Sex Assigned at Not on file Legal Sex Male 3:47 PM EST Gender Identity Not on file Sexual Orientation Not on file documented as of this encounter Plan of Treatment Upcoming Encounters Date Type Department Care Team (Late st Contact Info) Description 05/17/2025 2:30 PM EST Office Visit [facility] [address] [place] [address] Torey Tom MD [address] [place] [address] [place] [phone] documented as of this encounter Visit Diagnoses Not on filedocumented in this encounter Care Teams Senior Applications Engineer Relationship Specialty Start Date End Date Shawn Johnson MD [address] [place] [id number] PCP - General Internal Medicine 11/14/24 documented as of this encounter
--- OUTSIDE RECORDS SUMMARY | 2024-11-30 16:02 | XMS_ITS | Clinical Summary ---
Author Organization [address] [place] [address] Address [address] [place] [address] Phone Care Team Providers Care Air Bag Stripper Name Role Phone Shawn Johnson MD Primary Care Provider [phone] Allergies No known active allergies Medications amLODIPine-carlota [...] 2:00 PM EDT Office Visit Orthopedic Surgery [facility] [address] [phone] Jose Lloyd DPM Controlled type 2 diabetes with neuropathy (CMS/HCC V24, CMS/HCC V28) (Primary Dx); Arthritis of both feet; Hammertoes of both feet; Pain in toes of both feet; Dermatophytosis, nail 09/02/2024 12:28 AM EDT - 09/02/2024 6:08 AM EDT Emergency [facility] Emergency [address] [place] [phone] Teena Farah MD Atypical pneumonia (Primary Dx) [...] PM EDT Office Visit Orthopedic Surgery - [place] [address] [phone] Jose Lloyd DPM [address] [address] Health Maintenance Due Date Last Done Comments [...] - 100 mg/dL 09/02/2024 6:04 AM EDT [facility] Blood Capillary blood specimen / Unknown 09/02/2024 6:03 AM EDT 09/02/2024 6:05 AM EDT us Teena Farah MD LAB POINT OF CAR E TEST DOCKED DEVICE UNSOLICITED RESULTS Final Result [facility] [address] [place] [address], [place] [phone] * XR Chest 2 Views (09/02/2024 3:24 [...] Signed Date: 09/02/2024 08:45 ET Workstation ID: [id number] Transcribed By: Self Edit Transcribed Date: 09/02/2024 [...] Signed Date: 09/02/2024 08:45 ET Workstation ID: [id number] Transcribed By: Self Edit Transcribed Date: 09/02/2024 08:37 ET Teena Farah MD IMG XR PROCEDURES Final Result * Troponin I high sensitivity (09/02/2024 3:08 AM EDT) Only the most recent of2 resultswithin the time period is included. High Sensitivity Troponin I 12 <=79 ng/L LAB CHEMISTRY METHOD 09/02/2024 3:54 AM EDT [facility] Blood Venous blood specimen / Unknown Venipuncture / Unknown 09/02/2024 3:08 AM EDT 09/02/2024 3:26 AM EDT Narrative [facility] - 09/02/2024 3:54 AM EDT High levels of biotin in samples may falsely decrease hsTroponin values. Use caution when interpreting hsTroponin results in patients taking biotin who exhibit renal impairment (eGFR <60) or in patients taking more than 20 mg/day of biotin. Teena Farah MD LAB BLOOD ORDERABLES Fin al Result [facility] [address] [place] [address], [place] [phone] * Respiratory virus panel molecular study (09/02/2024 1:31 AM EDT) [facility] Adenovirus Detection by PCR Not Detected Not Detected LAB MICROBIOLOGY METHOD 09/02/2024 2:45 AM EDT [facility] Influenza A PCR Not Detected Not Detected LAB MICROBIOLOGY METHOD 09/02/2024 2:45 AM EDT [facility] Influenza B PCR Not Detected Not Detected LAB MICROBIOLOGY METHOD 09/02/2024 2:45 AM EDT [facility] Coronavirus 229E Not Detected Not Detected LAB MICROBIOLOGY METHOD 09/02/2024 2:45 AM EDT [facility] Coronavirus HKU1 Not Detected Not Detected LAB MICROBIOLOGY METHOD 09/02/2024 2:45 AM EDT [facility] Coronavirus OC43 Not Detected Not Detected LAB MICROBIOLOGY METHOD 09/02/2024 2:45 AM EDT [facility] Coronavirus NL63 Not Detected Not Detected LAB MICROBIOLOGY METHOD 09/02/2024 2:45 AM EDT [facility] Parainfluenza Virus 1 Not Detected Not Detected LAB MICROBIOLOGY METHOD 09/02/2024 2:45 AM EDT [facility] Parainfluenza Virus 2 Not Detected Not Detected LAB MICROBIOLOGY METHOD 09/02/2024 2:45 AM EDT [facility] Parainfluenza Virus 3 Not Detected Not Detected LAB MICROBIOLOGY METHOD 09/02/2024 2:45 AM EDT [facility] Parainfluenza Virus 4 Not Detected Not Detected LAB MICROBIOLOGY METHOD 09/02/2024 2:45 AM EDT [facility] RSV PCR Not Detected Not Detected LAB MICROBIOLOGY METHOD 09/02/2024 2:45 AM EDT [facility] Human Metapneumovirus A and B Not Detected Not Detected LAB MICROBIOLOGY METHOD 09/02/2024 2:45 AM EDT [facility] Rhinovirus/Entero virus Not Detected Not Detected LAB MICROBIOLOGY METHOD 09/02/2024 2:45 AM EDT [facility] Bordetella pertussis Not Detected Not Detected LAB MICROBIOLOGY METHOD 09/02/2024 2:45 AM EDT [facility] Bordetella parapertussis Not Detected Not Detected LAB MICROBIOLOGY METHOD 09/02/2024 2:45 AM EDT [facility] Mycoplasma pneumo by PCR Not Detected Not Detected LAB MICROBIOLOGY METHOD 09/02/2024 2:45 AM EDT [facility] Chlamydia pneumoniae Not Detected Not Detected LAB MICROBIOLOGY METHOD 09/02/2024 2:45 AM EDT [facility] SARS COV-2 Not Detected Not Detected LAB MICROBIOLOGY METHOD 09/02/2024 2:45 AM EDT [facility] Swab Both anterior nares / Unknown Non-blood Collection / Unknown 09/02/2024 1:31 AM EDT 09/02/2024 1:44 AM EDT Narrative [facility] - 09/02/2024 2:45 AM EDT Testing was performed using the [employer] Respiratory Pathogen PCR Assay. All results must [...] MICROBIOLOGY - GENER AL ORDERABLES Final Result [facility] [address] [place] [address], * (ABNORMAL) CBC auto differential (09/02/2024 1:31 AM EDT) [facility] WBC 7.9 4.8 - 10.8 K/mcL LAB HEMETOLOGY METHOD 09/02/2024 2:24 AM EDT [facility] RBC 3.90(L) 4.50 - 5.50 M/mcL LAB HEMETOLOGY METHOD 09/02/2024 2:24 AM EDT [facility] Hemoglobin 11.9(L) 13.5 - 17.5 g/dL LAB HEMETOLOGY METHOD 09/02/2024 2:24 AM [facility] Hematocrit 37.1(L) 42.0 - 54.0 % LAB HEMETOLOGY METHOD 09/02/2024 2:24 AM EDT [facility] MCV 95.4 79.0 - 98.0 FL LAB HEMETOLOGY METHOD 09/02/2024 2:24 AM [facility] MCH 30.6 27.0 - 32.0 pcg LAB HEMETOLOGY METHOD 09/02/2024 2:24 AM [facility] MCHC 32.1 32.0 - 37.0 g/dL LAB HEMETOLOGY METHOD 09/02/2024 2:24 AM [facility] RDW 13.9 11.0 - 15.0 % LAB HEMETOLOGY METHOD 09/02/2024 2:24 AM [facility] Platelets 250 130 - 400 K/mcL LAB HEMETOLOGY METHOD 09/02/2024 2:24 AM [facility] MPV 10.1 7.0 - 11.0 FL LAB HEMETOLOGY METHOD 09/02/2024 2:24 AM [facility] NRBC 0.0 <1.0 % LAB HEMETOLOGY METHOD 09/02/2024 2:24 AM [facility] NRBC Absolute 0.00 <0.10 K/mcL LAB HEMETOLOGY METHOD 09/02/2024 2:24 AM [facility] Neutrophils Relative 48.3 % LAB HEMETOLOGY METHOD 09/02/2024 2:24 AM [facility] Lymphocytes Relative 38.6 % LAB HEMETOLOGY METHOD 09/02/2024 2:24 AM EDT [facility] Monocytes Relative 10.4 % LAB HEMETOLOGY METHOD 09/02/2024 2:24 AM [facility] Eosinophils Relative 2.0 % LAB HEMETOLOGY METHOD 09/02/2024 2:24 AM EDT [facility] Basophils Relative 0.6 % LAB HEMETOLOGY METHOD [facility]/02[facility]24 [facility] Immature Granulocytes Relative 0.1 % LAB HEMETOLOGY METHOD 09/02/2024 2:24 AM T [facility] Neutrophils Absolute 3.82 1.50 - 7.00 K/mcL LAB HEMETOLOGY METHOD 09/02/2024 2:24 AM [facility] Lymphocytes Absolute 3.06 1.00 - 5.00 K/mcL LAB HEMETOLOGY METHOD 09/02/2024 2:[facility] Monocytes Absolute 0.82 0.20 - 1.00 K/mcL LAB HEMETOLOGY METHOD 09/02/2024 2:24 AM [facility] Eosinophils Absolute 0.16 0.00 - 0.50 K/mcL LAB HEMETOLOGY METHOD 09/02/2024 2:24 AM [facility] Basophils Absolute 0.05 0.00 - 0.20 K/mcL LAB HEMETOLOGY METHOD 09/02/2024 2:24 AM T [facility] Immature Granulocytes Absolute 0.01 0.00 - 0.03 K/mcL LAB HEMETOLOGY METHOD 09/02/2024 2:24 AM [facility] Blood Venous blood specimen / Unknown Venipuncture / Unknown 09/02/2024 1:31 AM EDT 09/02/2024 1:45 AM EDT us Teena Codie Gagan MD LAB BLOOD ORDERABLES Fin al Result Performing Organization Address City/[facility]/ZIP Co de Phone Number [facility] [address] [place] [address], [place] [phone] * B-type natriuretic peptide (09/02/2024 1:31 AM EDT) BNP 18 <=100 pcg/mL LAB CHEMISTRY METHOD 09/02/2024 2:17 AM EDT [facility] Blood Venous blood specimen / Unknown Venipuncture / Unknown 09/02/2024 1:31 AM EDT 09/02/2024 1:45 AM EDT Teena Farah MD LAB BLOOD ORDERABLES Fin al Result Performing Organization Address [facility] Co de Phone Number [facility] [address] [place] [address], [place] [phone] * Magnesium (09/02/2024 1:31 AM EDT) Pathologist [facility] Magnesium 2.0 1.9 - 2.6 mg/dL LAB CHEMISTRY METHOD 09/02/2024 2:11 AM EDT [facility] Comment:Hemolysis present Blood Venous blood specimen / Unknown Venipuncture / Unknown 09/02/2024 1:31 AM EDT 09/02/2024 1:45 AM EDT Teena Farah MD LAB BLOOD ORDERABLES Fin al Result Performing Organization Address City/[facility]/ZIP Co de Phone Number [facility] [address] [place] [address], [place] [phone] * Lipase (09/02/2024 1:31 AM EDT) Lipase 44 13 - 75 unit/L LAB CHEMISTRY METHOD 09/02/2024 2:11 AM EDT [facility] Blood Venous blood specimen / Unknown Venipuncture / Unknown 09/02/2024 1:31 AM EDT 09/02/2024 1:45 AM EDT Teena Farah MD LAB BLOOD ORDERABLES Fin al Result [facility] [address] [place] [address], * (ABNORMAL) Comprehensive metabolic panel (09/02/2024 1:31 AM EDT) Sodium 138 133 - 145 mmol/L LAB CHEMISTRY METHOD 09/02/2024 2:11 AM [facility] Potassium 4.8 3.5 - 5.5 mmol/L LAB CHEMISTRY METHOD 09/02/2024 2:11 AM [facility] Comment:Hemolysis present Chloride 108 96 - 110 mmol/L LAB CHEMISTRY METHOD 09/02/2024 2:11 AM [facility] CO2 24 21 - 32 mmol/L LAB CHEMISTRY METHOD 09/02/2024 2:11 AM [facility] Anion Gap 6 3 - 11 LAB CHEMISTRY METHOD 09/02/2024 2:11 AM [facility] Glucose 178(H) 70 - 100 mg/dL LAB CHEMISTRY METHOD 09/02/2024 2:11 AM [facility] BUN 16 5 - 25 mg/dL LAB CHEMISTRY METHOD 09/02/2024 2:11 AM [facility] Creatinine 1.74(H) 0.70 - 1.30 mg/dL LAB CHEMISTRY METHOD 09/02/2024 2:11 AM [facility] eGFR 43(L) >=60 mL/min/1. 73m2 LAB CHEMISTRY METHOD 09/02/2024 2:11 AM [facility] Comment:Calculation based on the Chronic Kidney Disease Epidemiology Collaboration (CKD-EPI) equation refit without adjustment for race. BUN/Creatinine Ratio 9.2 LAB CHEMISTRY METHOD 09/02/2024 2:11 AM [facility] Calcium 8.0(L) 8.5 - 10.5 mg/dL LAB CHEMISTRY METHOD 09/02/2024 2:11 AM [facility] AST (SGOT) 39 10 - 42 unit/L LAB CHEMISTRY METHOD 09/02/2024 2:11 AM [facility] Comment:Hemolysis present ALT (SGPT) 25 10 - 60 unit/L LAB CHEMISTRY METHOD 09/02/2024 2:11 AM [facility] Alkaline Phosphatase 114 42 - 121 unit/L LAB CHEMISTRY METHOD 09/02/2024 2:11 AM [facility] Total Protein 6.3 6.0 - 8.0 g/dL LAB CHEMISTRY METHOD 09/02/2024 2:11 AM [facility] Albumin 3.0(L) 3.2 - 5.0 g/dL LAB CHEMISTRY METHOD 09/02/2024 2:11 AM [facility] Total Bilirubin 0.3 0.0 - 1.4 mg/dL LAB CHEMISTRY METHOD 09/02/2024 2:11 AM [facility] Blood Venous blood specimen / Unknown Venipuncture / Unknown 09/02/2024 1:31 AM EDT 09/02/2024 1:45 AM EDT us Teena Farah MD LAB BLOOD ORDERABLES Fin al Result [facility] [address] [place] [address], * ECG 12 lead (09/02/2024 1:06 AM EDT) Ventricular Rate ECG 73 BPM [facility] Atrial Rate 73 BPM [facility] P-R Interval 142 ms [facility] QRS Duration 94 ms [facility] Q-T Interval 410 ms [facility] QTc 451 ms [facility] P Wave Haiku 66 degrees [facility] R Haiku 10 degrees [facility] T Haiku 10 degrees [facility] ECG Interpretation Normal sinus rhythm Normal ECG When compared with ECG of 01-APR-2023 17:08, No significant change was found Confirmed by STEWART SEAMAN ([id number]) on 09/02/2024 12:54:31 PM [facility] 09/02/2024 1:06 AM EDT 09/02/2024 12:54 PM EDT us Teena Farah MD ECG ORDERABLES Final Re sult [facility] from Last 3 Months Insurance [facility] Care Teams Air Bag Stripper Relationship Specialty Start Date End Date Shawn Johnson MD [address] [place] [phone] PCP - General 12/23/23
--- OUTSIDE RECORDS SUMMARY | 2024-11-30 16:02 | XMS_ITS | Encounter Summary ---
Author Organization [facility] Address [address] [place] [address] Phone Care Team Providers Care Pairer Odds Name Role Phone Shawn Johnson MD Primary Care Provider Encounter Details Date Type Department Care Team (Late st Contact Info) Description 06/23/2023 Documentation Only [facility] [address] [place] [address] Emily Barnhart [address] [place] [address] Social History Tobacco Use Types [...] Visit [facility] [address] [place] [address] Torey Tom MD [address] [place] [address] [place] [address] documented as of this encounter Visit Diagnoses Not on filedocumented in this encounter Care Teams Pairer Odds Relationship Specialty Start Date End Date Shawn Johnson MD [address] [place], [place] [phone] PCP - General Internal Medicine 11/14/24 documented as of this encounter
--- OUTSIDE RECORDS SUMMARY | 2024-11-30 16:02 | XMS_ITS | Encounter Summary ---
Author Organization [facility] Address [address] [place] [address] Phone Care Team Providers Care Dental Therapist Name Role Phone Shawn Johnson MD Primary Care Provider Encounter Details Date Type Department Care Team (Late st Contact Info) Description 11/02/2023 Documentation Only [facility] [address] [place] [address] Emily Barnhart [address] [place] [address] Social History Tobacco Use [...] Visit [facility] [address] [place] [address] Torey Tom MD [address] [place] [address] [place] [address] documented as of this encounter Visit Diagnoses Not on filedocumented in this encounter Care Teams Dental Therapist Relationship Specialty Start Date End Date Shawn Johnson MD [address] [place], [place] [phone] PCP - General Internal Medicine 11/14/24 documented as of this encounter
--- OUTSIDE RECORDS SUMMARY | 2024-11-30 16:02 | XMS_ITS | Clinical Summary ---
Author Organization [facility] Address [address] [place] [address] Phone Care Team Providers Care Twisting Frame Operator Name Role Phone Shawn Johnson MD Primary Care Provider [phone] Allergies No known active allergies Medications amLODIPine-carlota [...] Encounters Date Type Department Care Team Description 11/16/2024 2:30 PM EDT Office Visit [facility], [address] [place] [address] Torey Tom MD Stage 3b chronic kidney disease (HCC) (Primary Dx) 11/08/2024 Documentation Only [facility] [address] [place] [address] Emily Barnhart from Last 3 [...] [facility] [address] [place] [address] Torey Tom MD [address] [place] [address] [place] [address] Health Maintenance Due Date Last Done Comments Pneumococcal Vaccine: 50+ Ye ars (1 of 2 - PCV) 1979 Colorectal Cancer Screening: Annual FOBT 2009 Colorectal Cancer Screening: Colonoscopy 2009 Colorectal Cancer Screening: Sigmoidoscopy 2009 Diabetes: Ophthalmology Exam 04/09/2022 Diabetes: Pedal Pulse Checked 04/09/2022 Diabetes: Sensory Foot Exam 04/09/2022 Diabetes: Visual Foot Exam 04/09/2022 Diabetes: Hemoglobin A1C 07/09/2022 04/10/2022 Influenza Vaccine (#1) 2024 Hepatitis B Vaccine Aged Out No [...] PM EST) Hemoglobin A1C 8.2(H) (4.0-5.6) % [facility] Comment: MONITORING: In known diabetic patients, hemoglobin A1c targets should be discussed with health care provider. DIAGNOSTIC USE: The [place] Diabetes Association (ADA) and the World Health [...] Supplement 1 Testing performed or reported by [facility], a Service of [facility], [address] [place] [address] Aaliyah Pastrana MD, Ladle Repairman [facility]# [id number] Blood specimen (specimen) Venous blood / Unknown 04/10/2022 3:03 PM EST 04/10/2022 3:04 PM EST us Torey Tom MD LAB BLOOD ORDERABLES Final Re sult [facility] from Last 3 Months or Most Recently Relevant to Health Maintenance [place] [address] [employer] Care Teams Twisting Frame Operator Relationship Specialty Start Date End Date Shawn Johnson MD [address] [place] [address] PCP - General Internal Medicine 11/14/24
--- OUTSIDE RECORDS SUMMARY | 2024-11-30 16:02 | XMS_ITS | Encounter Summary ---
Author Organization [facility] Address [address] [place] [address] Phone Care Team Providers Care Director Financial Planning Name Role Phone Shawn Johnson MD Primary Care Provider [phone] Encounter Details Date Type Department Care Team (Late st Contact Info) Description 11/02/2023 Documentation Only [facility] [address] [address] Emily Barnhart [address] [place] [address] Social History Tobacco Use Types [...] [facility] [address] [address] Torey Tom MD [address] [place] [address] [place] [address] documented as of this encounter Visit Diagnoses Not on filedocumented in this encounter Care Teams Director Financial Planning Relationship Specialty Start Date End Date Shawn Johnson MD [address] [place], [place] [phone] PCP - General Internal Medicine 11/14/24 documented as of this encounter
--- OUTSIDE RECORDS SUMMARY | 2024-11-30 16:02 | XMS_ITS | Encounter Summary ---
Author Organization [facility] Address [address] [place] [address] Phone Care Team Providers Care Radiologic Technology Instructor Name Role Phone Shawn Johnson MD Primary Care Provider Encounter Details Date Type Department Care Team (Late st Contact Info) Description 06/23/2023 Documentation Only [facility] [address] [address] Emily Barnhart [address] [place] [address] Social History Tobacco Use Types [...] Visit [facility] [address] [address] Torey Tom MD [address] [place] [address] [place] [address] documented as of this encounter Visit Diagnoses Not on filedocumented in this encounter Care Teams Radiologic Technology Instructor Relationship Specialty Start Date End Date Shawn Johnson MD [address] [place], [place] [phone] PCP - General Internal Medicine 11/14/24 documented as of this encounter
--- OUTSIDE RECORDS SUMMARY | 2024-11-30 16:02 | XMS_ITS | Encounter Summary ---
Author Organization [facility] Address [address] [place] [address] Phone Care Team Providers Care Farm Or Ranch Animal Caretaker Name Role Phone Shawn Johnson MD Primary Care Provider Encounter Details Date Type Department Care Team (Late st Contact Info) Description 05/11/2024 Documentation Only [facility] [address] [place] [address] Emily Barnhart [address] [place] [address] Social History Tobacco Use Types [...] Visit [facility] [address] [place] [address] Torey Tom MD [address] [place] [address] [place] [address] documented as of this encounter Visit Diagnoses Not on filedocumented in this encounter Care Teams Farm Or Ranch Animal Caretaker Relationship Specialty Start Date End Date Shawn Johnson MD [address] [place], [place] [phone] PCP - General Internal Medicine 11/14/24 documented as of this encounter
--- OUTSIDE RECORDS SUMMARY | 2024-11-30 16:02 | XMS_ITS | Encounter Summary ---
Author Organization [facility] Address [address] [place] [address] Phone Care Team Providers Care Custom Wood Stair Builder Name Role Phone Shawn Johnson MD Primary Care Provider Encounter Details Date Type Department Care Team (Late st Contact Info) Description 11/08/2024 Documentation Only [facility] [address] [place] [address] Emily Barnhart [address] [place] [address] Social History Tobacco Use Types [...] Visit [facility] [address] [place] [address] Torey Tom MD [address] [place] [address] [place] [address] documented as of this encounter Visit Diagnoses Not on filedocumented in this encounter Care Teams Custom Wood Stair Builder Relationship Specialty Start Date End Date Shawn Johnson MD [address] [place], [place] [phone] PCP - General Internal Medicine 11/14/24 documented as of this encounter
--- OUTSIDE RECORDS SUMMARY | 2024-11-30 16:02 | XMS_ITS | Encounter Summary ---
Author Organization [facility] Address [address] [place] [address] Phone Care Team Providers Care Supervisor Core Drilling Name Role Phone Shawn Johnson MD Primary Care Provider Encounter Details Date Type Department Care Team (Late st Contact Info) Description 07/09/2023 Documentation Only [facility] [address] [place] [address] Emily Barnhart [address] [place] [address] Social History Tobacco Use Types [...] Visit [facility] [address] [place] [address] Torey Tom MD [address] [place] [address] Dr. [place] [address] documented as of this encounter Visit Diagnoses Not on filedocumented in this encounter Care Teams Supervisor Core Drilling Relationship Specialty Start Date End Date Shawn Johnson MD [address] [place], [place] [phone] PCP - General Internal Medicine 11/14/24 documented as of this encounter
== END 2024-11-30 11:41 | disposition home or self-care (01) ==
LOC: HO.HMGCLDS 11:40
PROVIDERS: PCP Internal Medicine; Visit Provider Urology
DX: Z12.5 Encounter for screening for malignant neoplasm of prostate (principal); N40.1 Benign prostatic hyperplasia with lower urinary tract symptoms; R35.0 Frequency of micturition; R35.1 Nocturia
CPT/HCPCS: 36415; 84153

== ENCOUNTER 2024-12-01 10:05 | Outpatient (AMB) | payer OTHER, SELFPAY ==
--- NOTE | 2024-12-01 10:21 | A.OFFVIS_ITS ---
Intake Visit Reasons: 1y/PSA Intake Note: Patient presents today for a 1y/PSA * 11/30 PSA:0.89 Urology Meds- None Allergies to Antibiotic- No Known Allergies Blood Thinner- Aspirin PVR:0ml Fuel Testing Technician Required: Yes Allergies No Known Allergies Allergy (Verified 12/01/24 10:25) HPI Comments Details: 12/01/2024--Brian is a 64-year-old male past medical history significant for insulin-dependent diabetes, chronic kidney disease here for 1 year follow-up PSA screening and BPH. Review of labs PSA drawn on 11/30/2024 0.89 ng/mL office testing urinalysis negative leukocytes negative blood bladder scan PVR 0 mL. History of Present Illness The patient is a 64-year-old male presenting for a one-year follow-up for PSA screening and management of benign prostatic hyperplasia. Denies obstructive LUTS. The patient has a history of insulin-dependent diabetes mellitus and chronic kidney disease. The patient also experiences erectile dysfunction, for which he has had a penile pump for approximately eight years. He reports difficulties in achieving orgasm, which may be related to his diabetes affecting nerve function. Additionally, the patient reports significant shoulder pain, which has been severe enough to disrupt his sleep. He has been prescribed Percocet prn by PCP and has been evaluated by pain management for nerve injections, which provides some relief, but the pain persists, particularly at night. Results - Labs: PSA level on 11/30/24 was 0.89 ng/mL - Tests: Urinalysis negative for leukocytes and blood - Diagnostics: Bladder scan post-void residual was 0 mL Plan 1. Benign Prostatic Hyperplasia - Continue annual PSA screening to monitor prostate health. - Schedule follow-up in one year to reassess condition and review PSA results. 2. Erectile Dysfunction - managed with penile pump implant 12/03/23--Brian is a 63 yo male past medical history, significant for insulin dependent diabetes mellitus, diabetic retinopathy and chronic kidney disease, here for FU for BPH, he states he is doing well. PSA 05/05/23--results 0.99 ng/mL. Will continue PSA screening. 05/17/2023-- 63-year-old male who presents today to the office for follow-up and review of kidney ultrasound results. I have reviewed the kidney ultrasound results negative for stones or masses. The patient states that the bladder portion of the ultrasound was not done because he was told his bladder was not full enough and has been rescheduled. I have discussed a trial of an alpha ruba, however the patient states his symptoms are not too bothersome and will wait on starting another med. I have reviewed the PSA results 0.99 ng/mL 01/29/2023 --He was referred by his primary care physician with a concern regarding urinary frequency and nocturia. His past medical history, significant for insulin dependent diabetes mellitus, diabetic retinopathy and chronic kidney disease followed by nephrology. He complained of dizziness during evaluation, stated he did not eat yet today but had a coffee in the morning. After several minutes he stated he felt better. A blood pressure was checked that was 127/70 mmHg. He is not sure of FH of cancer. He wakes two to 3 times during night for micturition that he states is not bothersome. He denies hematuria or irritative voiding symptoms. Evaluation today?UA-- 01/29/2023 ? Bladder scan PVR: 13 ml. Plan - Ultrasound Retroperitoneum prior was ordered. PSA. FU in 10 weeks [facility] Medical History Hypothyroid Glaucoma Chronic SI joint pain Lumbar radiculopathy Neuropathy BPH (benign prostatic hyperplasia) Elevated cholesterol GERD (gastroesophageal reflux disease) CKD (chronic kidney disease) Diabetes HTN (hypertension) Surgical History Hx of cataract surgery History of surgery on lower extremity History of shoulder surgery Family History Father Diabetes Hypertension Cancer Mother Hypertension Diabetes Social History Housing: House Patient Tobacco Use Status: Never used Tobacco e-Cigarette/Vaping Use: Never Used service: No Current occupational status: disabled Cognitive needs: No Hearing needs: No Vision needs: Yes Review of Systems Const All systems reviewed & are unremarkable except as noted in HPI and below Reports no additional complaints Eyes Reports no additional complaints ENT Reports no additional complaints Card Reports no additional complaints Resp Reports no additional complaints GI Reports no additional complaints Reports as per HPI Musc Reports no additional complaints Skin/Breast Reports system reviewed and no additional complaints, except as documented Neuro Reports no additional complaints Psych Reports no additional complaints Endo Reports no additional complaints Saurabh/Lymph Reports no additional complaints Aller/Immun Reports no additional complaints Results Reviewed Results Reviewed: Date of Service: 04/30/23 EXAMINATION: US RETROPERITONEAL LIMITED (RENAL ONLY) CLINICAL INFORMATION: Frequency of micturition. Try to estimate prostate volume. COMPARISON: None available. TECHNIQUE: Real-time imaging of the kidneys. FINDINGS: RIGHT KIDNEY: 9.8 x 4.9 x 4.6 cm (SAG x AP x TRV). The kidney is normal in size, contour, and echogenicity. Renal cortical thickness is normal. No calculi or focal parenchymal lesions. No hydronephrosis. LEFT KIDNEY: 10.1 x 5.0 x 6.0 cm (SAG x AP x TRV). The kidney is normal in size, contour, and echogenicity. Renal cortical thickness is normal. No calculi or focal parenchymal lesions. No hydronephrosis. US/US renal BI IMPRESSION: No significant sonographic abnormality in the kidneys. Assessment & Plan Assessment & Plan (1) Screening PSA (prostate specific antigen): Code(s): Z12.5 - Encounter for screening for malignant neoplasm of prostate Category: Medical (2) BPH (benign prostatic hyperplasia): Code(s): N40.0 - Benign prostatic hyperplasia without lower urinary tract symptoms Category: Medical Qualifiers: Lower urinary tract symptom presence: symptoms present Lower urinary tract symptom detail: urinary frequency Qualified Code(s): N40.1 - Benign prostatic hyperplasia with lower urinary tract symptoms; R35.0 - Frequency of micturition (3) Erectile dysfunction: Comment: s/p penile pump implant Code(s): N52.9 - Male erectile dysfunction, unspecified Category: Medical Plan Plan 1. Benign Prostatic Hyperplasia - Continue annual PSA screening to monitor prostate health. - Schedule follow-up in one year to reassess condition and review PSA results. 2. Erectile Dysfunction - managed with penile pump implant Patient Instructions: The patient had an opportunity to ask questions regarding treatment plan. The patient expressed understanding and agreement with the above treatment plan. The patient is aware they should contact our office by phone for worsening of their current condition or the appearance of new symptoms. Compliance is encouraged with any medications and followup testing that is ordered. It is a privilege to be allowed the opportunity to participate in the urologic care of your patient. If you have any questions or concerns regarding treatment for the above conditions please do not hesitate to contact me. The office telephone contact is [phone]. This note is constructed in part using voice recognition software. While every effort has been made to ensure accuracy revenue stamp clerk errors may have been included. Yours sincerely, Donavon Cobian MD Scribe Plan - Not visible on output: Patient was informed and verbally consented to the use of an ambient scribe for clinic note documentation during this visit. Coding Level of Care Code Est Pt Level 4 (64859) Diagnoses Screening PSA (prostate specific antigen) Z12.5 Benign prostatic hyperplasia with urinary frequency N40.1; R35.0 Lower urinary tract symptom presence: symptoms present Lower urinary tract symptom detail: urinary frequency Erectile dysfunction N52.9
--- OUTSIDE RECORDS SUMMARY | 2024-12-01 11:26 | XMS_ITS | Encounter Summary ---
Author Organization [facility] Address [address] [place] [address] Phone Care Team Providers Care Residential Plumber Name Role Phone Shawn Johnson MD Primary Care Provider [phone] Encounter Details Date Type Department Care Team (Late st Contact Info) Description 11/02/2023 Documentation Only [facility] [address] [place] [address] Emily Barnhart [address] [place] [address] Social History Tobacco Use Types [...] Visit [facility] [address] [place] [address] Torey Tom MD [address] [place] [address] [place] [address] documented as of this encounter Visit Diagnoses Not on filedocumented in this encounter Care Teams Residential Plumber Relationship Specialty Start Date End Date Shawn Johnson MD [address] [place], [place] [id number] PCP - General Internal Medicine 11/14/24 documented as of this encounter
--- OUTSIDE RECORDS SUMMARY | 2024-12-01 11:26 | XMS_ITS | Clinical Summary ---
Author Organization [facility] Address [address] [place] [address] Phone Care Team Providers Care 911 Operator Name Role Phone Shawn Johnson MD Primary Care Provider [phone] Allergies No known active allergies Medications amLODIPine-carlota [...] Office Visit [facility], [address] [place] [address] Torey Tom MD Stage 3b chronic kidney disease (HCC) (Primary Dx) 11/08/2024 Documentation Only [facility] [address] [place] [address] Emily Barnhart from Last 3 [...] [facility] [address] [place] [address] Torey Tom MD [address] [place] [address] [place] [address] Health Maintenance Due Date Last [...] PM EST) Hemoglobin A1C 8.2(H) (4.0-5.6) % [facility] Comment: MONITORING: In known diabetic patients, hemoglobin A1c targets should be discussed with health care provider. DIAGNOSTIC USE: The [place] [employer] (ADA) and the World Health [...] Supplement 1 Testing performed or reported by [facility], a Service of [facility], [address] [place] [address] Aaliyah Pastrana MD, Outfitter [place] [facility]# [id number] Blood specimen (specimen) Venous blood / Unknown 04/10/2022 3:03 PM EST 04/10/2022 3:04 PM EST us Torey Tom MD LAB BLOOD ORDERABLES Final Re sult [facility] from Last 3 Months or Most Recently Relevant to Health Maintenance [place] [address] [employer] Care Teams 911 Operator Relationship Specialty Start Date End Date Shawn Johnson MD [address] [place] [id number] PCP - General Internal Medicine 11/14/24
--- OUTSIDE RECORDS SUMMARY | 2024-12-01 11:26 | XMS_ITS | Encounter Summary ---
Author Organization [facility] Address [address] [place] [address] Phone Care Team Providers Care Site Administrator Name Role Phone Shawn Johnson MD Primary Care Provider [phone] Encounter Details Date Type Department Care Team (Late st Contact Info) Description 07/09/2023 Documentation Only [facility] [address] [place] [address] Emily Barnhart [address] [place] [address] Social History Tobacco Use Types [...] [facility] [address] [address] Torey Tom MD [address] [place] [address] [place] [address] documented as of this encounter Visit Diagnoses Not on filedocumented in this encounter Care Teams Site Administrator Relationship Specialty Start Date End Date Shawn Johnson MD [address] [place], [place] [phone] PCP - General Internal Medicine 11/14/24 documented as of this encounter
--- OUTSIDE RECORDS SUMMARY | 2024-12-01 11:26 | XMS_ITS | Encounter Summary ---
Author Organization [facility] Address [address] [place] [address] Phone Care Team Providers Care Chef Manager Name Role Phone Shawn Johnson MD Primary Care Provider Encounter Details Date Type Department Care Team (Late st Contact Info) Description 11/02/2023 Documentation Only [facility] [address] [place] [address] Emily Barnhart [address] [place] [address] Social History Tobacco Use Types [...] Visit [facility] [address] [place] [address] Torey Tom MD [address] [place] [address] [place] [address] documented as of this encounter Visit Diagnoses Not on filedocumented in this encounter Care Teams Chef Manager Relationship Specialty Start Date End Date Shawn Johnson MD [address] [place], [place] [phone] PCP - General Internal Medicine 11/14/24 documented as of this encounter
--- OUTSIDE RECORDS SUMMARY | 2024-12-01 11:26 | XMS_ITS | Encounter Summary ---
Author Organization [facility] Address [address] [place] [address] Phone Care Team Providers Care Yard General Car Supervisor Name Role Phone Shawn Johnson MD Primary Care Provider Encounter Details Date Type Department Care Team (Late st Contact Info) Description 05/11/2024 Documentation Only [facility] [address] [place] [address] Emily Barnhart [address] [place] [address] Social History Tobacco Use Types [...] [facility] [address] [place] [address] Torey Tom MD [address] [place] [address] [place] [address] documented as of this encounter Visit Diagnoses Not on filedocumented in this encounter Care Teams Yard General Car Supervisor Relationship Specialty Start Date End Date Shawn Johnson MD [address] [place], [place] [phone] PCP - General Internal Medicine 11/14/24 documented as of this encounter
--- OUTSIDE RECORDS SUMMARY | 2024-12-01 11:26 | XMS_ITS | Encounter Summary ---
Author Organization [facility] Address [address] [place] [address] Phone Care Team Providers Care Personal Consultant Name Role Phone Shawn Johnson MD Primary Care Provider Encounter Details Date Type Department Care Team (Late st Contact Info) Description 03/24/2022 Documentation Only [facility] [address] [place] [address] Shawn Johnson MD [facility] [address] Social History Tobacco Use Types Packs/Day Years [...] [facility] [address] [place] [address] Torey Tom MD [address] [place] [address] [place] [id number] documented as of this encounter Visit Diagnoses Not on filedocumented in this encounter Care Teams Personal Consultant Relationship Specialty Start Date End Date Shawn Johnson MD [address] [place] [id number] PCP - General Internal Medicine 11/14/24 documented as of this encounter
--- OUTSIDE RECORDS SUMMARY | 2024-12-01 11:26 | XMS_ITS | Clinical Summary ---
Author Organization [address] [place] [address] Address [address] [place] [address] Phone Care Team Providers Care Heddler Tier Name Role Phone Shawn Johnson MD Primary Care Provider [phone] Allergies No known active allergies Medications amLODIPine-carlota [...] 2:00 PM EDT Office Visit Orthopedic Surgery [facility] [address] [phone] Jose Lloyd DPM Controlled type 2 diabetes with neuropathy (CMS/HCC V24, CMS/HCC V28) (Primary Dx); Arthritis of both feet; Hammertoes of both feet; Pain in toes of both feet; Dermatophytosis, nail 09/02/2024 12:28 AM EDT - 09/02/2024 6:08 AM EDT Emergency [facility] Emergency [address] [place] [phone] Teena Farah MD Atypical pneumonia (Primary Dx) [...] PM EDT Office Visit Orthopedic Surgery - [place] [id number] [phone] Jose Lloyd DPM [address] [address] Health Maintenance Due Date Last Done Comments [...] - 100 mg/dL 09/02/2024 6:04 AM EDT [facility] Blood Capillary blood specimen / Unknown 09/02/2024 6:03 AM EDT 09/02/2024 6:05 AM EDT us Teena Farah MD LAB POINT OF CAR E TEST DOCKED DEVICE UNSOLICITED RESULTS Final Result [facility] [address] [place] [address], [place] [phone] * XR Chest 2 Views (09/02/2024 3:24 [...] Signed Date: 09/02/2024 08:45 ET Workstation ID: [id number] Transcribed By: Self Edit Transcribed Date: 09/02/2024 [...] Signed Date: 09/02/2024 08:45 ET Workstation ID: [id number] Transcribed By: Self Edit Transcribed Date: 09/02/2024 08:37 ET Teena Farah MD IMG XR PROCEDURES Final Result * Troponin I high sensitivity (09/02/2024 3:08 AM EDT) Only the most recent of2 resultswithin the time period is included. High Sensitivity Troponin I 12 <=79 ng/L LAB CHEMISTRY METHOD 09/02/2024 3:54 AM EDT [facility] Blood Venous blood specimen / Unknown Venipuncture / Unknown 09/02/2024 3:08 AM EDT 09/02/2024 3:26 AM EDT Narrative [facility] - 09/02/2024 3:54 AM EDT High levels of biotin in samples may falsely decrease hsTroponin values. Use caution when interpreting hsTroponin results in patients taking biotin who exhibit renal impairment (eGFR <60) or in patients taking more than 20 mg/day of biotin. Teena Farah MD LAB BLOOD ORDERABLES Fin al Result [facility] [address] [place] [address], [place] [phone] * Respiratory virus panel molecular study (09/02/2024 1:31 AM EDT) [facility] Adenovirus Detection by PCR Not Detected Not Detected LAB MICROBIOLOGY METHOD 09/02/2024 2:45 AM EDT [facility] Influenza A PCR Not Detected Not Detected LAB MICROBIOLOGY METHOD 09/02/2024 2:45 AM EDT [facility] Influenza B PCR Not Detected Not Detected LAB MICROBIOLOGY METHOD 09/02/2024 2:45 AM EDT [facility] Coronavirus 229E Not Detected Not Detected LAB MICROBIOLOGY METHOD 09/02/2024 2:45 AM EDT [facility] Coronavirus HKU1 Not Detected Not Detected LAB MICROBIOLOGY METHOD 09/02/2024 2:45 AM EDT [facility] Coronavirus OC43 Not Detected Not Detected LAB MICROBIOLOGY METHOD 09/02/2024 2:45 AM EDT [facility] Coronavirus NL63 Not Detected Not Detected LAB MICROBIOLOGY METHOD 09/02/2024 2:45 AM EDT [facility] Parainfluenza Virus 1 Not Detected Not Detected LAB MICROBIOLOGY METHOD 09/02/2024 2:45 AM EDT [facility] Parainfluenza Virus 2 Not Detected Not Detected LAB MICROBIOLOGY METHOD 09/02/2024 2:45 AM EDT [facility] Parainfluenza Virus 3 Not Detected Not Detected LAB MICROBIOLOGY METHOD 09/02/2024 2:45 AM EDT [facility] Parainfluenza Virus 4 Not Detected Not Detected LAB MICROBIOLOGY METHOD 09/02/2024 2:45 AM EDT [facility] RSV PCR Not Detected Not Detected LAB MICROBIOLOGY METHOD 09/02/2024 2:45 AM EDT [facility] Human Metapneumovirus A and B Not Detected Not Detected LAB MICROBIOLOGY METHOD 09/02/2024 2:45 AM EDT [facility] Rhinovirus/Entero virus Not Detected Not Detected LAB MICROBIOLOGY METHOD 09/02/2024 2:45 AM EDT [facility] Bordetella pertussis Not Detected Not Detected LAB MICROBIOLOGY METHOD 09/02/2024 2:45 AM EDT [facility] Bordetella parapertussis Not Detected Not Detected LAB MICROBIOLOGY METHOD 09/02/2024 2:45 AM EDT [facility] Mycoplasma pneumo by PCR Not Detected Not Detected LAB MICROBIOLOGY METHOD 09/02/2024 2:45 AM EDT [facility] Chlamydia pneumoniae Not Detected Not Detected LAB MICROBIOLOGY METHOD 09/02/2024 2:45 AM EDT [facility] SARS COV-2 Not Detected Not Detected LAB MICROBIOLOGY METHOD 09/02/2024 2:45 AM EDT [facility] Swab Both anterior nares / Unknown Non-blood Collection / Unknown 09/02/2024 1:31 AM EDT 09/02/2024 1:44 AM EDT Narrative [facility] - 09/02/2024 2:45 AM EDT Testing was performed using the [employer] Respiratory Pathogen PCR Assay. All results must [...] MICROBIOLOGY - GENER AL ORDERABLES Final Result [facility] [address] [place] [address], * (ABNORMAL) CBC auto differential (09/02/2024 1:31 AM EDT) [facility] WBC 7.9 4.8 - 10.8 K/mcL LAB HEMETOLOGY METHOD 09/02/2024 2:24 AM EDT [facility] RBC 3.90(L) 4.50 - 5.50 M/mcL LAB HEMETOLOGY METHOD 09/02/2024 2:24 AM EDT [facility] Hemoglobin 11.9(L) 13.5 - 17.5 g/dL LAB HEMETOLOGY METHOD 09/02/2024 2:24 AM [facility] Hematocrit 37.1(L) 42.0 - 54.0 % LAB HEMETOLOGY METHOD 09/02/2024 2:24 AM EDT [facility] MCV 95.4 79.0 - 98.0 FL LAB HEMETOLOGY METHOD 09/02/2024 2:24 AM [facility] MCH 30.6 27.0 - 32.0 pcg LAB HEMETOLOGY METHOD 09/02/2024 2:24 AM [facility] MCHC 32.1 32.0 - 37.0 g/dL LAB HEMETOLOGY METHOD 09/02/2024 2:24 AM [facility] RDW 13.9 11.0 - 15.0 % LAB HEMETOLOGY METHOD 09/02/2024 2:24 AM [facility] Platelets 250 130 - 400 K/mcL LAB HEMETOLOGY METHOD 09/02/2024 2:24 AM [facility] MPV 10.1 7.0 - 11.0 FL LAB HEMETOLOGY METHOD 09/02/2024 2:24 AM [facility] NRBC 0.0 <1.0 % LAB HEMETOLOGY METHOD 09/02/2024 2:24 AM [facility] NRBC Absolute 0.00 <0.10 K/mcL LAB HEMETOLOGY METHOD 09/02/2024 2:24 AM [facility] Neutrophils Relative 48.3 % LAB HEMETOLOGY METHOD 09/02/2024 2:24 AM [facility] Lymphocytes Relative 38.6 % LAB HEMETOLOGY METHOD 09/02/2024 2:24 AM EDT [facility] Monocytes Relative 10.4 % LAB HEMETOLOGY METHOD 09/02/2024 2:24 AM [facility] Eosinophils Relative 2.0 % LAB HEMETOLOGY METHOD 09/02/2024 2:24 AM EDT [facility] Basophils Relative 0.6 % LAB HEMETOLOGY METHOD 09/02[facility]2024 [facility] Immature Granulocytes Relative 0.1 % LAB HEMETOLOGY METHOD 09/02/2024 2:24 AM T [facility] Neutrophils Absolute 3.82 1.50 - 7.00 K/mcL LAB HEMETOLOGY METHOD 09/02/2024 2:24 AM [facility] Lymphocytes Absolute 3.06 1.00 - 5.00 K/mcL LAB HEMETOLOGY METHOD 09/02/2024 2[facility] Monocytes Absolute 0.82 0.20 - 1.00 K/mcL LAB HEMETOLOGY METHOD 09/02/2024 2:24 AM [facility] Eosinophils Absolute 0.16 0.00 - 0.50 K/mcL LAB HEMETOLOGY METHOD 09/02/2024 2:24 AM [facility] Basophils Absolute 0.05 0.00 - 0.20 K/mcL LAB HEMETOLOGY METHOD 09/02/2024 2:24 AM T [facility] Immature Granulocytes Absolute 0.01 0.00 - 0.03 K/mcL LAB HEMETOLOGY METHOD 09/02/2024 2:24 AM [facility] Blood Venous blood specimen / Unknown Venipuncture / Unknown 09/02/2024 1:31 AM EDT 09/02/2024 1:45 AM EDT us Teena Codie Gagan MD LAB BLOOD ORDERABLES Fin al Result Performing Organization Address City/[facility] [place] [facility]/ZIP Co de Phone Number [facility] [address] [place] [address], [place] [phone] * B-type natriuretic peptide (09/02/2024 1:31 AM EDT) BNP 18 <=100 pcg/mL LAB CHEMISTRY METHOD 09/02/2024 2:17 AM EDT [facility] Blood Venous blood specimen / Unknown Venipuncture / Unknown 09/02/2024 1:31 AM EDT 09/02/2024 1:45 AM EDT Teena Farah MD LAB BLOOD ORDERABLES Fin al Result Performing Organization Address [facility] [place] [facility] Co de Phone Number [facility] [address] [place] [address], [place] [phone] * Magnesium (09/02/2024 1:31 AM EDT) Pathologist [facility] Magnesium 2.0 1.9 - 2.6 mg/dL LAB CHEMISTRY METHOD 09/02/2024 2:11 AM EDT [facility] Comment:Hemolysis present Blood Venous blood specimen / Unknown Venipuncture / Unknown 09/02/2024 1:31 AM EDT 09/02/2024 1:45 AM EDT Teena Farah MD LAB BLOOD ORDERABLES Fin al Result Performing Organization Address City/[facility]/ZIP Co de Phone Number [facility] [address] [place] [address], [place] [phone] * Lipase (09/02/2024 1:31 AM EDT) Lipase 44 13 - 75 unit/L LAB CHEMISTRY METHOD 09/02/2024 2:11 AM EDT [facility] Blood Venous blood specimen / Unknown Venipuncture / Unknown 09/02/2024 1:31 AM EDT 09/02/2024 1:45 AM EDT Teena Farah MD LAB BLOOD ORDERABLES Fin al Result [facility] [address] [place] [address], * (ABNORMAL) Comprehensive metabolic panel (09/02/2024 1:31 AM EDT) Sodium 138 133 - 145 mmol/L LAB CHEMISTRY METHOD 09/02/2024 2:11 AM [facility] Potassium 4.8 3.5 - 5.5 mmol/L LAB CHEMISTRY METHOD 09/02/2024 2:11 AM [facility] Comment:Hemolysis present Chloride 108 96 - 110 mmol/L LAB CHEMISTRY METHOD 09/02/2024 2:11 AM [facility] CO2 24 21 - 32 mmol/L LAB CHEMISTRY METHOD 09/02/2024 2:11 AM [facility] Anion Gap 6 3 - 11 LAB CHEMISTRY METHOD 09/02/2024 2:11 AM [facility] Glucose 178(H) 70 - 100 mg/dL LAB CHEMISTRY METHOD 09/02/2024 2:11 AM [facility] BUN 16 5 - 25 mg/dL LAB CHEMISTRY METHOD 09/02/2024 2:11 AM [facility] Creatinine 1.74(H) 0.70 - 1.30 mg/dL LAB CHEMISTRY METHOD 09/02/2024 2:11 AM [facility] eGFR 43(L) >=60 mL/min/1. 73m2 LAB CHEMISTRY METHOD 09/02/2024 2:11 AM [facility] Comment:Calculation based on the Chronic Kidney Disease Epidemiology Collaboration (CKD-EPI) equation refit without adjustment for race. BUN/Creatinine Ratio 9.2 LAB CHEMISTRY METHOD 09/02/2024 2:11 AM [facility] Calcium 8.0(L) 8.5 - 10.5 mg/dL LAB CHEMISTRY METHOD 09/02/2024 2:11 AM [facility] AST (SGOT) 39 10 - 42 unit/L LAB CHEMISTRY METHOD 09/02/2024 2:11 AM [facility] Comment:Hemolysis present ALT (SGPT) 25 10 - 60 unit/L LAB CHEMISTRY METHOD 09/02/2024 2:11 AM [facility] Alkaline Phosphatase 114 42 - 121 unit/L LAB CHEMISTRY METHOD 09/02/2024 2:11 AM [facility] Total Protein 6.3 6.0 - 8.0 g/dL LAB CHEMISTRY METHOD 09/02/2024 2:11 AM [facility] Albumin 3.0(L) 3.2 - 5.0 g/dL LAB CHEMISTRY METHOD 09/02/2024 2:11 AM [facility] Total Bilirubin 0.3 0.0 - 1.4 mg/dL LAB CHEMISTRY METHOD 09/02/2024 2:11 AM [facility] Blood Venous blood specimen / Unknown Venipuncture / Unknown 09/02/2024 1:31 AM EDT 09/02/2024 1:45 AM EDT us Teena Farah MD LAB BLOOD ORDERABLES Fin al Result [facility] [address] [place] [address], * ECG 12 lead (09/02/2024 1:06 AM EDT) Ventricular Rate ECG 73 BPM GEMUSE Atrial Rate 73 BPM GEMUSE P-R Interval 142 ms GEMUSE QRS Duration 94 ms GEMUSE Q-T Interval 410 ms GEMUSE QTc 451 ms GEMUSE P Wave [place] 66 degrees GEMUSE R [place] 10 degrees GEMUSE T [place] 10 degrees GEMUSE ECG Interpretation Normal sinus rhythm Normal ECG When compared with ECG of 01-APR-2023 17:08, No significant change was found Confirmed by STEWART SEAMAN ([id number]) on 09/02/2024 12:54:31 PM GEMUSE 09/02/2024 1:06 AM EDT 09/02/2024 12:54 PM EDT us Teena Farah MD ECG ORDERABLES Final Re sult GEMUSE from Last 3 Months Insurance [facility] Care Teams Heddler Tier Relationship Specialty Start Date End Date Shawn Johnson MD [address] [place] [address] PCP - General 12/23/23
--- OUTSIDE RECORDS SUMMARY | 2024-12-01 11:26 | XMS_ITS | Encounter Summary ---
Author Organization [facility] Address [address] [place] [address] Phone Care Team Providers Care Migratory Farm Hand Name Role Phone Shawn Johnson MD Primary Care Provider [phone] Encounter Details Date Type Department Care Team (Late st Contact Info) Description 06/23/2023 Documentation Only [facility] [address] [place] [address] Emily Barnhart [address] [place] [address] Social History Tobacco Use Types [...] Visit [facility] [address] [place] [address] Torey Tom MD [address] [place] [address] [place] [address] documented as of this encounter Visit Diagnoses Not on filedocumented in this encounter Care Teams Migratory Farm Hand Relationship Specialty Start Date End Date Shawn Johnson MD [address] [place], [place] [phone] PCP - General Internal Medicine 11/14/24 documented as of this encounter
--- OUTSIDE RECORDS SUMMARY | 2024-12-01 11:26 | XMS_ITS | Encounter Summary ---
Author Organization [facility] Address [address] [place] [address] Phone Care Team Providers Care Charge Coordinator Name Role Phone Shawn Johnson MD Primary Care Provider Encounter Details Date Type Department Care Team (Late st Contact Info) Description 11/08/2024 Documentation Only [facility] [address] [place] [address] Emily Barnhart [address] [place], [place] [...] [facility] [address] [place] [address] Torey Tom MD [address] [place] [address] [place] [address] documented as of this encounter Visit Diagnoses Not on filedocumented in this encounter Care Teams Charge Coordinator Relationship Specialty Start Date End Date Shawn Johnson MD [address] [place], [place] [phone] PCP - General Internal Medicine 11/14/24 documented as of this encounter
--- OUTSIDE RECORDS SUMMARY | 2024-12-01 11:26 | XMS_ITS | Encounter Summary ---
Author Organization [facility] Address [address] [place] [address] Phone Care Team Providers Care Mortgage Loan Processor Name Role Phone Shawn Johnson MD Primary Care Provider Encounter Details Date Type Department Care Team (Late st Contact Info) Description 06/23/2023 Documentation Only [facility] [address] [place] [address] Emily Barnhart [address] [place] [address] Social History Tobacco Use Types [...] [facility] [address] [place] [address] Torey Tom MD [address] [place] [address] [place] [address] documented as of this encounter Visit Diagnoses Not on filedocumented in this encounter Care Teams Mortgage Loan Processor Relationship Specialty Start Date End Date Shawn Johnson MD [address] [place], [place] [phone] PCP - General Internal Medicine 11/14/24 documented as of this encounter
== END 2024-12-01 10:54 | disposition home or self-care (01) ==
LOC: HO.HUSH 10:06
PROVIDERS: PCP Internal Medicine; Visit Provider Urology
DX: Z12.5 Encounter for screening for malignant neoplasm of prostate (principal); N40.1 Benign prostatic hyperplasia with lower urinary tract symptoms; R35.0 Frequency of micturition; N52.9 Male erectile dysfunction, unspecified; Z13.9 Encounter for screening, unspecified
CPT/HCPCS: 99214

== ENCOUNTER → 2024-12-01 10:05 | Outpatient (BNVA) | payer OTHER, SELFPAY | PROVIDERS: PCP Internal Medicine; Visit Provider Urology | DX: N40.0 Benign prostatic hyperplasia without lower urinary tract symptoms (principal); N52.9 Male erectile dysfunction, unspecified | CPT/HCPCS: 81003; 99212 ==

== ENCOUNTER 2024-12-15 14:30 | Outpatient (AMB) | payer OTHER, SELFPAY ==
[2024-12-15 14:32] VITALS: BP 112/62; PULSE 82; O2SAT 97; BMI 38.2
--- NOTE | 2024-12-15 14:32 | MHC.PC.OV ---
Vital Signs 12/15/24 14:32 Height 5 ft 7 in Weight 244 lb BMI 38.2 BP 112/62 Blood Pressure Location Rt brachial Position Sitting Pulse 82 Pulse Source Pulse Oximeter Pulse Oximetry (%) 97 Oxygen Delivery Method Room Air Intake Visit Reasons: 1m follow up Allergies No Known Allergies Allergy (Verified 12/15/24 14:32) Medication List - Last Reconciled 12/15/24 by Shawn Johnson MD amlodipine-benazepril 10-20 mg 1 cap PO DAILY aspirin (Adult Low Dose Aspirin) 81 mg PO DAILY atorvastatin 10 mg PO BEDTIME blood sugar diagnostic (FreeStyle Lite Strips) USE TO CHECK BLOOD SUGAR 3 TIMES DAILY: FASTING AND BEFORE MEALS cholecalciferol (vitamin D3) 25 mcg PO DAILY 90 days dorzolamide-timolol 22.3-6.8 mg/mL 1 drp ophthalmic (eye) BID dulaglutide (Trulicity) 4.5 mg (0.5 mL) subcut QWEEK 90 days flash glucose sensor (FreeStyle Ye 2 Sensor kit) Use with sensor to monitor blood sugar TID and as needed for s/s hypo/hyperglycemia fluticasone propionate 50 mcg/actuation (Allergy Relief (fluticasone)) 1 spray intranasal DAILY 30 days FreeStyle Ye 2 Cyclone (flash glucose scanning reader) Use with sensor to monitor blood sugar TID and as needed for s/s hypo/hyperglycemia NS FreeStyle Lite Meter (blood-glucose meter) Use to check blood sugar 4 times daily, fasting and AC NS insulin aspart U-100 (Novolog FlexPen U-100 Insulin aspart) 15 units (0.15 mL) subcut TID 90 days [insulin pen needles 4 times a day] lamotrigine 100 mg PO BID lancets (FreeStyle Lancets) Use to check blood sugar QID, fasting and AC Lantus Solostar U-100 Insulin (insulin glargine) subcutaneously 2 times a day; 50 units at night and 20 units in the morning 90 days NS levothyroxine 50 mcg PO DAILY lidocaine 5% (Lidoderm) 1 patch topical DAILY PRN MDD remove after 12 hours metoclopramide HCl (Reglan) 10 mg PO Q6H 7 days oxycodone-acetaminophen 5-325 mg (Percocet) 1 tab PO Q8H PRN 30 days pantoprazole 20 mg PO DAILY pen needle, diabetic (Ultra-Fine Pen Needle) qid Tobacco use date assessed: 09/20/24 Fall risk assessment: No Falls in past year Last assessed Fall Risk: 12/15/24 Dental Screening Dental Screen Date: 08/25/24 HPI 1m follow up HPI Details Longitudinal care visit Medical History - Multiple joint arthritis - Back pain - Previous treatment with baker paint and injection, resulting in worsened pain - Current medication: Oxycodone, thrice daily - Vaccinations: Pneumonia vaccine, RSV vaccine, shingles vaccine Problem List - Multiple Joint Arthritis - Back Pain Plan 1. Multiple Joint Arthritis - Continue current treatment with oxycodone, administered three times daily as previously instructed. - Discussed the potential for reduced dosing when the patient experiences symptomatic relief to avoid tolerance. - Plan to reassess dosing plan during the follow-up visit in a month. 2. Back Pain - Continue current medication plan with oxycodone. - Recommended taking one dose in the morning and two doses during the evening to manage nighttime pain effectively. - Discussed sleeping strategies and medication timing to minimize pain at night. Patient Instructions - Take oxycodone three times a day as directed. - Consider skipping a dose if feeling better to avoid medication tolerance. - Use the medication primarily in the evening to manage nighttime pain. - youth accommodation support worker medications from the pharmacy as soon as possible. - Return for follow-up in one month. Review of Systems - General: No fever no chills - Neurological: No headaches no dizziness - Ear nose throat: No sore throat no hearing difficulty no ear pain - Cardiovascular: No syncope, no chest pain, no palpitations - Gastrointestinal: No nausea vomiting or diarrhea - Endocrine: No polyuria polydipsia no heat intolerance - Genitourinary: No dysuria , no blood in urine Physical Exam - General: No acute distress - HEENT: No acute findings - Neck: Supple - Respiratory system: Able to talk in full sentences, no audible wheeze - Cardiovascular: S1-S2 regular in rate and rhythm - Gastrointestinal: No pain - Extremities: No new findings - MOTOR ASSEMBLY SUPERVISOR: Alert awake oriented x3 motor intact - Skin: Normal turgor [facility] Medical History Hypothyroid Glaucoma Chronic SI joint pain Lumbar radiculopathy Neuropathy BPH (benign prostatic hyperplasia) Elevated cholesterol GERD (gastroesophageal reflux disease) CKD (chronic kidney disease) Diabetes HTN (hypertension) Surgical History Hx of cataract surgery History of surgery on lower extremity History of shoulder surgery Family History Father Diabetes Hypertension Cancer Mother Hypertension Diabetes Social History Housing: House Patient Tobacco Use Status: Never used Tobacco e-Cigarette/Vaping Use: Never Used service: No Current occupational status: disabled Cognitive needs: No Hearing needs: No Vision needs: Yes Questionnaire PHQ-9 Over the last 2 weeks, how often have you been bothered by any of the following problems? 1. Little interest or pleasure in doing things: not at all 2. Feeling down, depressed, or hopeless: not at all 3. Trouble falling or staying asleep, or sleeping too much: not at all 4. Feeling tired or having little energy: not at all 5. Poor appetite or overeating: not at all 6. Feeling bad about yourself - or that you are a failure or have let yourself or your family down: not at all 7. Trouble concentrating on things, such as reading the newspaper or watching television: not at all 8. Moving or speaking so slowly that other people could have noticed. Or the opposite - being so fidgety or restless that you have been moving around a lot more than usual: not at all 9. Thoughts that you would be better off or of hurting yourself in some way: not at all Total score: 0 Depression Screening Interpretation: Negative Depression Screening Done: Yes 44892 - PHQ-9 Billing: Yes Source: Developed by Drs. Josiah Bailey, Gema Zimmerman, Brian Jo and colleagues, with an educational lovely from [employer]. Thrive Questionnaire Date Thrive assessed: 07/07/24 I am a: Patient What is your living situation today?: I have a steady place to live Within the past 12 months, did the food you bought not last and you didn't have the money to get more?: Sometimes True Within the past 12 months, did you worry whether your food would run out before you got money to buy more?: Often true Do you have trouble paying for medicines?: No Do you have trouble getting transportation to medical appointments?: Yes Do you have trouble paying your heating and electricity bill?: Yes Do you have trouble taking care of your child, family member or friend?: No Do you have trouble with day-to-day activities such as bathing, preparing meals, shopping, managing finances, etc.?: No Are you currently unemployed and looking for a job?: I choose not to answer this question Are you interested in more education?: I choose not to answer this question Please select the resources that you would like help with: None Currently or been in a relationship where the following occur: I choose not to answer THRIVE Score: 4 AUDIT C Alcohol Use Questionnaire (AUDIT-C) 1. How often do you have a drink containing alcohol?: 2-4 times a month 2. How many drinks containing alcohol do you have on a typical day when you are drinking?: 1 or 2 3. How often do you have six or more drinks on one occasion?: Never Total Score: 2 AMINATA-7 AMB Questionnaire AMINATA-7 Date AMINATA - 7 assessed: 10/13/24 Feeling nervous, anxious, or on edge: 1 = Several days Not being able to stop or control worryin = Several days Worrying too much about different things: 3 = Nearly every day Trouble relaxin = Nearly every day Being so restless that it is hard to sit still: 3 = Nearly every day Becoming easily annoyed or irritable: 3 = Nearly every day Feeling afraid as if something awful might happen: 1 = Several days Total AMINATA-7 score (0-4 normal; 5-9 mild; 10-14 moderate; 15-21 severe): 15 Source: Developed by Drs. Josiah Bailey, Gema Zimmerman, Brian Jo and colleagues, with an educational lovely from [employer]. AMINATA-7 Assessment Billing AMINATA-7 Assessment Tool: AMINATA-7 Assessment 39335 Physical exam (Primary Care) Vital Signs: Last Vital Signs Pulse 82 12/15/24 14:32 BP 112/62 12/15/24 14:32 Pulse Ox 97 12/15/24 14:32 Oxygen Delivery Method Room Air 12/15/24 14:32 BMI result Body Mass Index 38.2 Tobacco/Smoking Status: Tobacco use Status Tobacco use date assessed 09/20/24 12/15/24 14:33 Patient Tobacco Use Status Never used Tobacco 12/15/24 14:33 e-Cigarette/Vaping Use Never Used 12/15/24 14:33 PHQ-9: PHQ-9 Score PHQ-9: Total score 0 12/15/24 14:33 Depression Screening Interpretation: Negative Thrive Assessment: Date of Thrive Assessment Date Thrive assessed 07/07/24 12/15/24 14:33 Currently or been in a relationship where the following occur: I choose not to answer Coding Level of Care Code Est Pt Level 3 (18186) Complex EM visit Add On G2211 Diagnoses Lumbar spondylosis M47.816 Myofascial pain syndrome M79.18 Sacroiliac joint dysfunction of left side M53.3 Narcotic dependence F11.20 Additional Codes PHQ-9 - 07963 - PHQ-9 Billing: Yes ([id number]) AMINATA-7 Assessment Billing - AMINATA-7 Assessment Tool: AMINATA-7 Assessment 78689 ([id number]) Assessment & Plan Assessment & Plan (1) Lumbar spondylosis: Code(s): M47.816 - Spondylosis without myelopathy or radiculopathy, lumbar region Category: Medical (2) Myofascial pain syndrome: Code(s): M79.18 - Myalgia, other site Category: Medical (3) Sacroiliac joint dysfunction of left side: Code(s): M53.3 - Sacrococcygeal disorders, not elsewhere classified Category: Medical (4) Narcotic dependence: Code(s): F11.20 - Opioid dependence, uncomplicated Category: Medical Plan Medical History - Multiple joint arthritis - Back pain - Previous treatment with baker paint and injection, resulting in worsened pain - Current medication: Oxycodone, thrice daily - Vaccinations: Pneumonia vaccine, RSV vaccine, shingles vaccine Problem List - Multiple Joint Arthritis - Back Pain Plan 1. Multiple Joint Arthritis - Continue current treatment with oxycodone, administered three times daily as previously instructed. - Discussed the potential for reduced dosing when the patient experiences symptomatic relief to avoid tolerance. - Plan to reassess dosing plan during the follow-up visit in a month. 2. Back Pain - Continue current medication plan with oxycodone. - Recommended taking one dose in the morning and two doses during the evening to manage nighttime pain effectively. - Discussed sleeping strategies and medication timing to minimize pain at night. Patient Instructions - Take oxycodone three times a day as directed. - Consider skipping a dose if feeling better to avoid medication tolerance. - Use the medication primarily in the evening to manage nighttime pain. - youth accommodation support worker medications from the pharmacy as soon as possible. - Return for follow-up in one month. Medications: Refilled oxycodone-acetaminophen 5-325 mg (Percocet) Partial Fill upon patient request. 1 tab PO Q8H PRN 90 tabs 0RF pain 30 days M13.0 - Polyarthritis, unspecified, M25.511 - Pain in right shoulder, M47.816 - Spondylosis without myelopathy or radiculopathy, lumbar region
--- OUTSIDE RECORDS SUMMARY | 2024-12-15 15:25 | XMS_ITS | Encounter Summary ---
Author Organization [facility] Address [address] [place] [address] Phone Care Team Providers Care Flour Worker Name Role Phone Shawn Johnson MD Primary Care Provider Encounter Details Date Type Department Care Team (Late st Contact Info) Description 11/02/2023 Documentation Only [facility] [address] [place] [address] Emily Barnhart [address] [place] [address] Social History Tobacco Use Types [...] Visit [facility] [address] [place] [address] Torey Tom MD [address] [place] [address] [place] [address] documented as of this encounter Visit Diagnoses Not on filedocumented in this encounter Care Teams Flour Worker Relationship Specialty Start Date End Date Shawn Johnson MD [address] [place], [place] [id number] PCP - General Internal Medicine 11/14/24 documented as of this encounter
--- OUTSIDE RECORDS SUMMARY | 2024-12-15 15:25 | XMS_ITS | Clinical Summary ---
Author Organization [address] [place] [address] Address [address] [place] [address] Phone Care Team Providers Care Day Care Aide Name Role Phone Shawn Johnson MD Primary Care Provider [phone] Allergies No known active allergies Medications amLODIPine-carlota [...] 03/03/2024 Type 2 diabetes mellitus (CMS/HCC V24, CMS/[facility] V 28) 03/03/2024 HTN (hypertension) 03/03/2024 Encounters Date Type Department Care Team Description 10/31/2024 2:00 PM EDT Office Visit Orthopedic Surgery - [address] [address] Jose Lloyd DPM Controlled type 2 diabetes with neuropathy (CMS/HCC V24, CMS/HCC V28) (Primary Dx); Arthritis of both feet; Hammertoes of both feet; Pain in toes of both feet; Dermatophytosis, nail from Last 3 Months Social History Tobacco [...] PM EDT Office Visit Orthopedic Surgery - [place] [address] [facility] [address] [place] [address] Jose Lloyd, DPNickolas [address] [facility] [address] [place] [address] Health Maintenance Due Date Last Done Comments [...] 12/07/2033 12/08/2023 Pneumococcal Vaccine: 50+ Years Completed 5 RSV Immunization Adult Patients Completed 5 HIB Vaccines Aged Out No longer [...] Procedure Name Priority Date/Time Associated Diagnosis Comments COMPREHENSIVE METABOLIC PANEL STAT 09/02/2024 1:31 AM EDT from Last 3 Months or Most Recently Relevant to Health Maintenance Results * (ABNORMAL) Comprehensive metabolic panel (09/02/2024 1:31 [...] 73m2 LAB CHEMISTRY METHOD 09/02/2024 2:11 AM T [facility] Comment:Calculation based on the [...] MD LAB BLOOD ORDERABLES Fin al Result [facility] [address] [place] [address], [place] [phone] from Last 3 Months or Most Recently Relevant to Health Maintenance Insurance [facility] Care Teams Day Care Aide Relationship Specialty Start Date End Date Shawn Johnson MD [address] [place] [address] PCP - General 12/23/23
--- OUTSIDE RECORDS SUMMARY | 2024-12-15 15:25 | XMS_ITS | Clinical Summary ---
Author Organization [facility] Address [address] [place] [address] Phone Care Team Providers Care Floor Technician Name Role Phone Shawn Johnson MD Primary Care Provider [phone] Allergies No known active allergies Medications amLODIPine-carlota [...] Office Visit [facility], [address] [place] [address] Torey Tom MD Stage 3b chronic kidney disease (HCC) (Primary Dx) 11/08/2024 Documentation Only [facility] [address] [place] [address] Emily Barnhart from Last 3 [...] Visit [facility] [address] [place] [address] Torey Tom MD [address] [place] [address] [place] [address] Health Maintenance Due Date Last [...] PM EST) Hemoglobin A1C 8.2(H) (4.0-5.6) % [facility] Comment: MONITORING: In known diabetic patients, hemoglobin A1c targets should be discussed with health care provider. DIAGNOSTIC USE: The [place] Diabetes Association (ADA) and the World Health [...] Supplement 1 Testing performed or reported by [facility], a Service of [facility], [address] [place] [address] Aaliyah Pastrana MD, Corporate Sales Representative [facility]# [phone] Blood specimen (specimen) Venous blood / Unknown 04/10/2022 3:03 PM EST 04/10/2022 3:04 PM EST us Torey Tom MD LAB BLOOD ORDERABLES Final Re sult [facility] from Last 3 Months or Most Recently Relevant to Health Maintenance [place] [address] [employer] Care Teams Floor Technician Relationship Specialty Start Date End Date Shawn Johnson MD [address] [place] [address] PCP - General Internal Medicine 11/14/24
--- OUTSIDE RECORDS SUMMARY | 2024-12-15 15:25 | XMS_ITS | Encounter Summary ---
Author Organization [facility] Address [address] [place] [address] Phone Care Team Providers Care Gin Clerk Name Role Phone Shawn Johnson MD Primary Care Provider [phone] Encounter Details Date Type Department Care Team (Late st Contact Info) Description 07/09/2023 Documentation Only [facility] [address] [place] [address] Emily Barnhart [address] [place] [address] Social History Tobacco Use Types [...] Visit [facility] [address] [place] [address] Torey Tom MD [address] [place] [address] [place] [address] documented as of this encounter Visit Diagnoses Not on filedocumented in this encounter Care Teams Gin Clerk Relationship Specialty Start Date End Date Shawn Johnson MD [address] [place], [place] [phone] PCP - General Internal Medicine 11/14/24 documented as of this encounter
--- OUTSIDE RECORDS SUMMARY | 2024-12-15 15:25 | XMS_ITS | Encounter Summary ---
Author Organization [facility] Address [address] [place] [address] Phone Care Team Providers Care Relief Worker Name Role Phone Shawn Johnson MD Primary Care Provider [phone] Encounter Details Date Type Department Care Team (Late st Contact Info) Description 11/08/2024 Documentation Only [facility] [address] [address] Emily Barnhart [address] [place] [address] Social History Tobacco Use Types [...] Visit [facility] [address] [address] Torey Tom MD [address] [place] [address] [place] [address] documented as of this encounter Visit Diagnoses Not on filedocumented in this encounter Care Teams Relief Worker Relationship Specialty Start Date End Date Shawn Johnson MD [address] [place], [place] [id number] PCP - General Internal Medicine 11/14/24 documented as of this encounter
--- OUTSIDE RECORDS SUMMARY | 2024-12-15 15:25 | XMS_ITS | Encounter Summary ---
Author Organization [facility] Address [address] [place] [address] Phone Care Team Providers Care Electric Dolly Operator Name Role Phone Shawn Johnson MD Primary Care Provider Encounter Details Date Type Department Care Team (Late st Contact Info) Description 11/02/2023 Documentation Only [facility] [address] [place] [address] Emily Barnhart [address] [place] [address] Social History Tobacco Use Types [...] Visit [facility] [address] [place] [address] Torey Tom MD [address] [place] [address] [place] [address] documented as of this encounter Visit Diagnoses Not on filedocumented in this encounter Care Teams Electric Dolly Operator Relationship Specialty Start Date End Date Shawn Johnson MD [address] [place], [place] [phone] PCP - General Internal Medicine 11/14/24 documented as of this encounter
--- OUTSIDE RECORDS SUMMARY | 2024-12-15 15:26 | XMS_ITS | Encounter Summary ---
Author Organization [facility] Address [address] [place] [address] Phone Care Team Providers Care Halal Butcher Name Role Phone Shawn Johnson MD Primary Care Provider [phone] Encounter Details Date Type Department Care Team (Late st Contact Info) Description 06/23/2023 Documentation Only [facility] [address] [place] [place] [address] Emily Barnhart [address] [place] [address] Social History Tobacco Use [...] Visit [facility] [address] [place] [address] Torey Tom MD [address] [place] [address] [place] [address] documented as of this encounter Visit Diagnoses Not on filedocumented in this encounter Care Teams Halal Butcher Relationship Specialty Start Date End Date Shawn Johnson MD [address] [place], [place] [phone] PCP - General Internal Medicine 11/14/24 documented as of this encounter
--- OUTSIDE RECORDS SUMMARY | 2024-12-15 15:26 | XMS_ITS | Encounter Summary ---
Author Organization [facility] Address [address] [place] [address] Phone Care Team Providers Care Manager Foreign Name Role Phone Shawn Johnson MD Primary Care Provider Encounter Details Date Type Department Care Team (Late st Contact Info) Description 05/11/2024 Documentation Only [facility] [address] [place] [address] Emily Barnhart [address] [place] [address] Social History Tobacco Use Types [...] Visit [facility] [address] [place] [address] Torey Tom MD [address] [place] [address] [place] [address] documented as of this encounter Visit Diagnoses Not on filedocumented in this encounter Care Teams Manager Foreign Relationship Specialty Start Date End Date Shawn Johnson MD [address] [place], [place] [phone] PCP - General Internal Medicine 11/14/24 documented as of this encounter
--- OUTSIDE RECORDS SUMMARY | 2024-12-15 15:26 | XMS_ITS | Encounter Summary ---
Author Organization [facility] Address [address] [place] [address] Phone Care Team Providers Care Pasteurizer Helper Name Role Phone Shawn Johnson MD Primary Care Provider [phone] Encounter Details Date Type Department Care Team (Late st Contact Info) Description 03/24/2022 Documentation Only [facility] [address] [place] [address] Shawn Johnson MD [facility] [place] [address] Social History Tobacco Use Types Packs/Day Years [...] Services Of [address] [place] [address] Torey Tom MD [address] [place] [address] [place] [address] documented as of this encounter Visit Diagnoses Not on filedocumented in this encounter Care Teams Pasteurizer Helper Relationship Specialty Start Date End Date Shawn Johnson MD [address] [place] [address] PCP - General Internal Medicine 11/14/24 documented as of this encounter
--- OUTSIDE RECORDS SUMMARY | 2024-12-15 15:26 | XMS_ITS | Encounter Summary ---
Author Organization [facility] Address [address] [place] [address] Phone Care Team Providers Care Superintendent Meters Name Role Phone Shawn Johnson MD Primary Care Provider [phone] Encounter Details Date Type Department Care Team (Late st Contact Info) Description 06/23/2023 Documentation Only [facility] [address] [place] [address] Emily Barnhart [address] [place] [address] Social History Tobacco Use Types [...] Visit [facility] [address] [place] [address] Torey Tom MD [address] [place] [address] [place] [address] documented as of this encounter Visit Diagnoses Not on filedocumented in this encounter Care Teams Superintendent Meters Relationship Specialty Start Date End Date Shawn Johnson MD [address] [place], [place] [id number] PCP - General Internal Medicine 11/14/24 documented as of this encounter
== END 2024-12-15 15:00 | disposition home or self-care (01) ==
LOC: HO.HMCC 14:31
PROVIDERS: PCP Internal Medicine; Visit Provider Internal Medicine
DX: M47.816 Spondylosis without myelopathy or radiculopathy, lumbar region (principal); M79.18 Myalgia, other site; M53.3 Sacrococcygeal disorders, not elsewhere classified; F11.20 Opioid dependence, uncomplicated

== ENCOUNTER → 2024-12-15 14:30 | Outpatient (BNVA) | payer OTHER, SELFPAY | PROVIDERS: PCP Internal Medicine; Visit Provider Internal Medicine | DX: M47.816 Spondylosis without myelopathy or radiculopathy, lumbar region (principal); M79.18 Myalgia, other site; M53.3 Sacrococcygeal disorders, not elsewhere classified; M13.0 Polyarthritis, unspecified; M25.511 Pain in right shoulder; F10.20 Alcohol dependence, uncomplicated | CPT/HCPCS: 96127; 99212 ==

== ENCOUNTER 2025-02-14 12:44 | Outpatient (AMB) | payer OTHER, SELFPAY ==
[2025-02-14 12:45] VITALS: BP 120/80; PULSE 89; O2SAT 98; BMI 38.5
--- NOTE | 2025-02-14 12:45 | A.OFFPC_ITS ---
Vital Signs 02/14/25 12:45 Height 5 ft 7 in Weight 246 lb BMI 38.5 BP 120/80 Blood Pressure Location Rt brachial Position Sitting Pulse 89 Pulse Source Pulse Oximeter Pulse Oximetry (%) 98 Intake Visit Reasons: Annual PE Allergies No Known Allergies Allergy (Verified 02/14/25 12:45) Medication List - Last Reconciled 02/14/25 by Shawn Johnson MD amlodipine-benazepril 10-20 mg 1 cap PO DAILY aspirin (Adult Low Dose Aspirin) 81 mg PO DAILY atorvastatin 10 mg PO BEDTIME blood sugar diagnostic (FreeStyle Lite Strips) USE TO CHECK BLOOD SUGAR 3 TIMES DAILY: FASTING AND BEFORE MEALS cholecalciferol (vitamin D3) 25 mcg PO DAILY 90 days dorzolamide-timolol 22.3-6.8 mg/mL 1 drp ophthalmic (eye) BID dulaglutide (Trulicity) 4.5 mg (0.5 mL) subcut QWEEK 90 days flash glucose sensor (FreeStyle Ye 2 Sensor kit) Use with sensor to monitor blood sugar TID and as needed for s/s hypo/hyperglycemia fluticasone propionate 50 mcg/actuation (Allergy Relief (fluticasone)) 1 spray intranasal DAILY 30 days FreeStyle Ye 2 [place] (flash glucose scanning reader) Use with sensor to monitor blood sugar TID and as needed for s/s hypo/hyperglycemia NS FreeStyle Lite Meter (blood-glucose meter) Use to check blood sugar 4 times daily, fasting and AC NS insulin aspart U-100 (Novolog FlexPen U-100 Insulin aspart) 15 units (0.15 mL) subcut TID 90 days [insulin pen needles 4 times a day] lamotrigine 100 mg PO BID lancets (FreeStyle Lancets) Use to check blood sugar QID, fasting and AC Lantus Solostar U-100 Insulin (insulin glargine) subcutaneously 2 times a day; 50 units at night and 20 units in the morning 90 days NS levothyroxine 50 mcg PO DAILY lidocaine 5% (Lidoderm) 1 patch topical DAILY PRN MDD remove after 12 hours metoclopramide HCl (Reglan) 10 mg PO Q6H 7 days oxycodone-acetaminophen 5-325 mg (Percocet) 1 tab PO Q8H PRN 30 days pantoprazole 20 mg PO DAILY pen needle, diabetic (Ultra-Fine Pen Needle) qid Tobacco use date assessed: 09/20/24 Fall risk assessment: No Falls in past year Last assessed Fall Risk: 02/14/25 Dental Screening Dental Screen Date: 08/25/24 HPI HPI Comments History of Present Illness Details History of Present Illness The patient is a 64 year old individual presenting for management of chronic shoulder pain. Shoulder Arthritis: - The patient reports pain in both shoul ders, with the left shoulder being worse, which is exacerbated by cold weather. - A shoulder X-ray revealed moderate spu rring of the AC joint and mild degenerative arthritis. - The patient has no history of shoulder surgery. Chronic Pain Management: - The patient uses an unspecified pain m edication, which provides relief for only three to four hours. - The patient is prescribed three pills per day, typically taking one before 10 p.m. and a second dose around 6 a.m. - The patient reports experiencing signi ficant pain while waiting for the third dose, which is due at 2 p.m. - A request for medication every six francisco javier rs was made by the patient but was denied. Type 2 Diabetes Mellitus: - The patient's A1c is 6.3, indicating g ood glycemic control. - The patient reports avoiding candy. - The patient occasionally experiences l ow blood sugar in the morning, which is managed by drinking orange juice. Diagnostic Results: - Imaging: Shoulder X-ray showed moderat e spurring of the acromioclavicular (AC) joint and mild degenerative arthritis. - Labs: A1c is 6.3. PFSH Medical History Hypothyroid Glaucoma Chronic SI joint pain Lumbar radiculopathy Neuropathy BPH (benign prostatic hyperplasia) Elevated cholesterol GERD (gastroesophageal reflux disease) CKD (chronic kidney disease) Diabetes HTN (hypertension) Surgical History Hx of cataract surgery History of surgery on lower extremity History of shoulder surgery Family History Father Diabetes Hypertension Cancer Mother Hypertension Diabetes Social History Housing: House Patient Tobacco Use Status: Never used Tobacco e-Cigarette/Vaping Use: Never Used service: No Current occupational status: disabled Cognitive needs: No Hearing needs: No Vision needs: Yes Questionnaire Thrive Questionnaire Date Thrive assessed: 07/07/24 I am a: Patient What is your living situation today?: I have a steady place to live Within the past 12 months, did the food you bought not last and you didn't have the money to get more?: Sometimes True Within the past 12 months, did you worry whether your food would run out before you got money to buy more?: Often true Do you have trouble paying for medicines?: No Do you have trouble getting transportation to medical appointments?: Yes Do you have trouble paying your heating and electricity bill?: Yes Do you have trouble taking care of your child, family member or friend?: No Do you have trouble with day-to-day activities such as bathing, preparing meals, shopping, managing finances, etc.?: No Are you currently unemployed and looking for a job?: I choose not to answer this question Are you interested in more education?: I choose not to answer this question Please select the resources that you would like help with: None Currently or been in a relationship where the following occur: I choose not to answer THRIVE Score: 4 AMINATA-7 AMB Questionnaire AMINATA-7 Date AMINATA - 7 assessed: 10/13/24 Source: Developed by Drs. Josiah Bailey, Gema Zimmerman, Brian Jo and colleagues, with an educational lovely from [employer]. Review of Systems Narrative Review of Systems - General: No fever no chills - Neurological: No headaches no dizziness - Ear nose throat: No sore throat no hearing difficulty no ear pain - Cardiovascular: No syncope, no chest pain, no palpitations - Gastrointestinal: No nausea vomiting or diarrhea - Endocrine: No polyuria polydipsia no heat intolerance - Genitourinary: No dysuria , no blood in urine Physical exam (Primary Care) Vital Signs: Last Vital Signs Pulse 89 02/14/25 12:45 BP 120/80 02/14/25 12:45 Pulse Ox 98 02/14/25 12:45 BMI result Body Mass Index 38.5 Tobacco/Smoking Status: Tobacco use Status Tobacco use date assessed 09/20/24 02/14/25 12:46 Patient Tobacco Use Status Never used Tobacco 02/14/25 12:46 e-Cigarette/Vaping Use Never Used 02/14/25 12:46 Thrive Assessment: Date of Thrive Assessment Date Thrive assessed 07/07/24 02/14/25 12:46 Currently or been in a relationship where the following occur: I choose not to answer Narrative Physical Exam General: No acute distress HEENT: No acute findings Neck: Supple Respiratory system: Able to talk in full sentences, no audible wheeze Cardiovascular: S1-S2 regular in rate and rhythm Gastrointestinal: No pain Extremities: Left shoulder pain with moderate spurring of AC joint and mild degenerative arthritis STAINED GLASS INSTALLER: Alert awake oriented x3 motor intact Skin: Normal turgor Results AMB Hemoglobin A1c AMB Hemoglobin A1c 6.3 % Last Edit by Alberto Joy CMA on 02/14/25 13: 02 Results Reviewed Results Reviewed: Laboratory Last Values Hgb A1c (Clinic) 6.3 % (4.0-6.0) H 02/14/25 13:00 Coding Level of Care Code Est Pt Level 4 (07144) Diagnoses 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 E10.3553 Diabetes mellitus complication status: with ophthalmic complications Diabetes mellitus complication detail: with diabetic retinopathy Diabetic retinopathy severity: with proliferative retinopathy Proliferative retinopathy type: stable Laterality: bilateral Primary osteoarthritis, left shoulder M19.012 Lumbar spondylosis M47.816 Myofascial pain syndrome M79.18 Sacroiliac joint dysfunction of left side M53.3 Narcotic dependence F11.20 Assessment & Plan Assessment & Plan (1) Insulin dependent type 1 diabetes mellitus: Code(s): E10.9 - Type 1 diabetes mellitus without complications Category: Medical Qualifiers: Diabetes mellitus complication status: with ophthalmic complications Diabetes mellitus complication detail: with diabetic retinopathy Diabetic retinopathy severity: with proliferative retinopathy Proliferative retinopathy type: stable Laterality: bilateral Qualified Code(s): E10.3553 - Type 1 diabetes mellitus with stable proliferative diabetic retinopathy, bilateral (2) Primary osteoarthritis, left shoulder: Code(s): M19.012 - Primary osteoarthritis, left shoulder Category: Medical (3) Lumbar spondylosis: Code(s): M47.816 - Spondylosis without myelopathy or radiculopathy, lumbar region Category: Medical (4) Myofascial pain syndrome: Code(s): M79.18 - Myalgia, other site Category: Medical (5) Sacroiliac joint dysfunction of left side: Code(s): M53.3 - Sacrococcygeal disorders, not elsewhere classified Category: Medical (6) Narcotic dependence: Code(s): F11.20 - Opioid dependence, uncomplicated Category: Medical Plan Problem List - Arthritis of the shoulder - Chronic pain - Type 2 Diabetes Mellitus - chronic back pain Plan - A referral will be made to an orthopedic group in [place] for a second opinion on the patient's shoulder arthritis, with potential for surgical intervention such as joint cleaning or replacement. - An appointment will be scheduled, and the patient will receive a letter with the details. - The current pain medication will be refilled. - The patient was advised to continue the current dosing of three pills a day, and the request for medication every 6 hours was denied. - The patient's diabetes management remains unchanged given the good A1c of 6.3. - The patient was advised to follow up in one month. Orders: Orders AMB Hemoglobin A1c Today Z13.9 - Encounter for screening, unspecified Referrals Orthopedics Referral M19.012 - Primary osteoarthritis, left shoulder Medications: Refilled oxycodone-acetaminophen 5-325 mg (Percocet) Partial Fill upon patient request. 1 tab PO Q8H PRN 90 tabs 0RF pain 30 days M13.0 - Polyarthritis, unspecified, M25.511 - Pain in right shoulder, M47.816 - Spondylosis without myelopathy or radiculopathy, lumbar region
--- OUTSIDE RECORDS SUMMARY | 2025-02-14 15:44 | XMS_ITS | Encounter Summary ---
Author Organization [facility] Address [address] [place] [address] Phone Care Team Providers Care Edge Plugger Name Role Phone Shawn Johnson MD Primary Care Provider [phone] Encounter Details Date Type Department Care Team (Late st Contact Info) Description 05/11/2024 Documentation Only [facility] [address] [address] Emily Barnhart [address] [place] [address] Social History Tobacco Use Types [...] Visit [facility] [address] [place] [address] Torey Tom MD [address] [place] [address] [place] [address] documented as of this encounter Visit Diagnoses Not on filedocumented in this encounter Care Teams Edge Plugger Relationship Specialty Start Date End Date Shawn Johnson MD [address] [place], [place] [id number] PCP - General Internal Medicine 11/14/24 documented as of this encounter
--- OUTSIDE RECORDS SUMMARY | 2025-02-14 15:44 | XMS_ITS | Encounter Summary ---
Author Organization [facility] Address [address] [place] [address] Phone Care Team Providers Care Bander Hand Name Role Phone Shawn Johnson MD Primary Care Provider Encounter Details Date Type Department Care Team (Late st Contact Info) Description 11/02/2023 Documentation Only [facility] [address] [place] [address] Emily Barnhart [address] [place] [address] Social History Tobacco Use Types [...] Visit [facility] [address] [place] [address] Torey Tom MD [address] [place] [address] [place] [address] documented as of this encounter Visit Diagnoses Not on filedocumented in this encounter Care Teams Bander Hand Relationship Specialty Start Date End Date Shawn Johnson MD [address] [place], [place] [id number] PCP - General Internal Medicine 11/14/24 documented as of this encounter
--- OUTSIDE RECORDS SUMMARY | 2025-02-14 15:44 | XMS_ITS | Encounter Summary ---
Author Organization [facility] Address [address] [place] [address] Phone Care Team Providers Care Fountain Brush Assembler Name Role Phone Shawn Johnson MD Primary Care Provider Encounter Details Date Type Department Care Team (Late st Contact Info) Description 11/02/2023 Documentation Only [facility] [address] [place] [address] Emily Barnhart [address] [place] [address] Social History Tobacco Use Types [...] Visit [facility] [address] [place] [address] Torey Tom MD [address] [place] [address] [place] [address] documented as of this encounter Visit Diagnoses Not on filedocumented in this encounter Care Teams Fountain Brush Assembler Relationship Specialty Start Date End Date Shawn Johnson MD [address] [place], [place] [id number] PCP - General Internal Medicine 11/14/24 documented as of this encounter
--- OUTSIDE RECORDS SUMMARY | 2025-02-14 15:44 | XMS_ITS | Encounter Summary ---
Author Organization [facility] Address [address] [place] [address] Phone Care Team Providers Care Laundry Or Dry Cleaners Counter Clerk Name Role Phone Shawn Johnson MD Primary Care Provider Encounter Details Date Type Department Care Team (Late st Contact Info) Description 11/08/2024 Documentation Only [facility] [address] [place] [address] Emily Barnhart [address] [place] [address] Social History Tobacco Use Types [...] [facility] [address] [place] [address] Torey Tom MD [address] [place] [address] [place] [address] documented as of this encounter Visit Diagnoses Not on filedocumented in this encounter Care Teams Laundry Or Dry Cleaners Counter Clerk Relationship Specialty Start Date End Date Shawn Johnson MD [address] [place], [place] [id number] PCP - General Internal Medicine 11/14/24 documented as of this encounter
--- OUTSIDE RECORDS SUMMARY | 2025-02-14 15:44 | XMS_ITS | Clinical Summary ---
Author Organization [address] [place] [address] Address [address] [place] [address] Phone Care Team Providers Care Submarine Worker Name Role Phone Shawn Johnson MD Primary Care Provider [phone] Allergies No known active allergies Medications amLODIPine-carlota [...] 03/03/2024 Type 2 diabetes mellitus (CMS/HCC V24, CMS/[facility] V 28) 03/03/2024 HTN (hypertension) 03/03/2024 Encounters Date Type Department Care Team Description 01/11/2025 1:45 PM EDT Office Visit Orthopedic Surgery - [address] [address] Jose Lloyd DPM Controlled type [...] Care Team (Late st Contact Info) Description 03/19/2025 1:45 PM EST Office Visit Orthopedic Surgery - [place] [address] [facility] [address] [place] [id number] Jose Lloyd, TIFFANIE [address] [facility] [address] [place] [address] Health Maintenance Due Date Last Done Comments Colorectal Cancer Screening: Colonoscopy 1960 COVID-19 Vaccine (#1) 1965 Diabetes: Annual Foot Exam 1970 Diabetes: Annual Retina Eye Exam 1970 Cholesterol Screening (Lipid Panel) 02/18/2022 HIV Screening 02/18/2022 Hepatitis C Screening [...] mmol/L LAB CHEMISTRY METHOD 09/02/2024 2:11 AM [facility] Potassium 4.8 3.5 - 5.5 mmol/L LAB CHEMISTRY METHOD 09/02/2024 2:11 AM [facility] Comment:Hemolysis present Chloride 108 96 - 110 mmol/L LAB CHEMISTRY METHOD 09/02/2024 2:11 AM [facility] CO2 24 21 - 32 mmol/L LAB CHEMISTRY METHOD 09/02/2024 2:11 AM [facility] Anion Gap 6 3 - 11 LAB CHEMISTRY METHOD 09/02/2024 2:11 AM [facility] Glucose 178(H) 70 - 100 mg/dL LAB CHEMISTRY METHOD 09/02/2024 2:11 AM [facility] BUN 16 5 - 25 mg/dL LAB CHEMISTRY METHOD 09/02/2024 2:11 AM [facility] Creatinine 1.74(H) 0.70 - 1.30 mg/dL LAB CHEMISTRY METHOD 09/02/2024 2:11 AM [facility] eGFR 43(L) >=60 mL/min/1. 73m2 LAB CHEMISTRY METHOD 09/02/2024 2:11 AM [facility] Comment:Calculation based on the Chronic Kidney Disease Epidemiology Collaboration (CKD-EPI) equation refit without adjustment for race. BUN/Creatinine Ratio 9.2 LAB CHEMISTRY METHOD 09/02/2024 2:11 AM [facility] Calcium 8.0(L) 8.5 - 10.5 mg/dL LAB CHEMISTRY METHOD 09/02/2024 2:11 AM [facility] AST (SGOT) 39 10 - 42 unit/L LAB CHEMISTRY METHOD 09/02/2024 2:11 AM [facility] Comment:Hemolysis present ALT (SGPT) 25 10 - 60 unit/L LAB CHEMISTRY METHOD 09/02/2024 2:11 AM [facility] Alkaline Phosphatase 114 42 - 121 unit/L LAB CHEMISTRY METHOD 09/02/2024 2:11 AM [facility] Total Protein 6.3 6.0 - 8.0 g/dL LAB CHEMISTRY METHOD 09/02/2024 2:11 AM [facility] Albumin 3.0(L) 3.2 - 5.0 g/dL LAB CHEMISTRY METHOD 09/02/2024 2:11 AM [facility] Total Bilirubin 0.3 0.0 - 1.4 mg/dL LAB CHEMISTRY METHOD 09/02/2024 2:11 AM [facility] Blood Venous blood specimen / Unknown Venipuncture / Unknown 09/02/2024 1:31 AM EDT 09/02/2024 1:45 AM EDT us Teena Farah MD LAB BLOOD ORDERABLES Fin al Result [facility] [address] [place] [address], [place] [phone] from Last 3 Months or Most Recently Relevant to Health Maintenance Insurance [facility] PLAN Care Teams Submarine Worker Relationship Specialty Start Date End Date Shawn Johnson MD [address] [place] [address] PCP - General 12/23/23
--- OUTSIDE RECORDS SUMMARY | 2025-02-14 15:44 | XMS_ITS | Clinical Summary ---
Author Organization [facility] Address [address] [place] [address] Phone Care Team Providers Care Supervisor Bottle House Cleaners Name Role Phone Shawn Johnson MD Primary Care Provider [phone] Allergies No known active allergies Medications amLODIPine-carlota [...] Office Visit [facility], [address] [place] [address] Torey Tom MD Stage 3b chronic kidney disease (HCC) (Primary Dx) from Last 3 Months Family History Medical [...] Office Visit [facility] [address] [place] [address] Torey Tom MD [address] [place] [address] [place] [address] Health Maintenance Due Date Last [...] PM EST) Hemoglobin A1C 8.2(H) (4.0-5.6) % [facility] Comment: MONITORING: In known diabetic patients, hemoglobin A1c targets should be discussed with health care provider. DIAGNOSTIC USE: The [place] Diabetes Association (ADA) and the World Health [...] Supplement 1 Testing performed or reported by [facility], a Service of [facility], [address] [place] [address] Aaliyah Pastrana MD, Acquisitions Librarian [facility]# [id number] Blood specimen (specimen) Venous blood / Unknown 04/10/2022 3:03 PM EST 04/10/2022 3:04 PM EST us Torey Tom MD LAB BLOOD ORDERABLES Final Re sult [facility] from Last 3 Months or Most Recently Relevant to Health Maintenance [place] [address] [employer] Care Teams Supervisor Bottle House Cleaners Relationship Specialty Start Date End Date Shawn Johnson MD [address] [place] [address] PCP - General Internal Medicine 11/14/24
--- OUTSIDE RECORDS SUMMARY | 2025-02-14 15:44 | XMS_ITS | Encounter Summary ---
Author Organization [facility] Address [address] [place] [address] Phone Care Team Providers Care V Belt Curer Name Role Phone Shawn Johnson MD Primary Care Provider Encounter Details Date Type Department Care Team (Late st Contact Info) Description 07/09/2023 Documentation Only [facility] [address] [place] [address] Emily Barnhart [address] [place] [address] Social History Tobacco Use Types [...] Visit [facility] [address] [address] Torey Tom MD [address] [place] [address] [place] [address] documented as of this encounter Visit Diagnoses Not on filedocumented in this encounter Care Teams V Belt Curer Relationship Specialty Start Date End Date Shawn Johnson MD [address] [place], [place] [phone] PCP - General Internal Medicine 11/14/24 documented as of this encounter
--- OUTSIDE RECORDS SUMMARY | 2025-02-14 15:45 | XMS_ITS | Encounter Summary ---
Author Organization [facility] Address [address] [place] [address] Phone Care Team Providers Care Dredge Mate Name Role Phone Shawn Johnson MD Primary Care Provider [phone] Encounter Details Date Type Department Care Team (Late st Contact Info) Description 06/23/2023 Documentation Only [facility] [address] [place] [address] Emily Barnhart [address] [place] [address] Social History Tobacco Use Types [...] [facility] [address] [place] [address] Torey Tom MD [address] [place] [address] [place] [address] documented as of this encounter Visit Diagnoses Not on filedocumented in this encounter Care Teams Dredge Mate Relationship Specialty Start Date End Date Shawn Johnson MD [address] [place], [place] [phone] PCP - General Internal Medicine 11/14/24 documented as of this encounter
--- OUTSIDE RECORDS SUMMARY | 2025-02-14 15:45 | XMS_ITS | Encounter Summary ---
Author Organization [facility] Address [address] [place] [address] Phone Care Team Providers Care Outbound Call Center Representative Name Role Phone Shawn Johnson MD Primary Care Provider [phone] Encounter Details Date Type Department Care Team (Late st Contact Info) Description 06/23/2023 Documentation Only [facility] [address] [place] [address] Emily Barnhart [address] [place] [address] Social History Tobacco Use Types [...] Visit [facility] [address] [place] [address] Torey Tom MD [address] [place] [address] [place] [address] documented as of this encounter Visit Diagnoses Not on filedocumented in this encounter Care Teams Outbound Call Center Representative Relationship Specialty Start Date End Date Shawn Johnson MD [address] [place], [place] [id number] PCP - General Internal Medicine 11/14/24 documented as of this encounter
--- OUTSIDE RECORDS SUMMARY | 2025-02-14 15:45 | XMS_ITS | Encounter Summary ---
Author Organization [facility], Address [address] [place] [address] Phone Care Team Providers Care Recycling Sorter Name Role Phone Shawn Johnson MD Primary Care Provider [phone] Encounter Details Date Type Department Care Team (Late st Contact Info) Description 03/24/2022 Documentation Only [facility] [address] [place] [address] Shawn Johnson MD [facility] [place] [address] Social History Tobacco Use Types Packs/Day Years [...] [facility] [address] [place] [address] Torey Tom MD [address] [place] [address] [place] [id number] documented as of this encounter Visit Diagnoses Not on filedocumented in this encounter Care Teams Recycling Sorter Relationship Specialty Start Date End Date Shawn Johnson MD [address] [place] [id number] PCP - General Internal Medicine 11/14/24 documented as of this encounter
== END 2025-02-14 13:08 | disposition home or self-care (01) ==
LOC: HO.HMCC 12:44
PROVIDERS: PCP Internal Medicine; Visit Provider Internal Medicine
DX: E10.3553 Type 1 diabetes mellitus with stable proliferative diabetic retinopathy, bilateral (principal); F11.20 Opioid dependence, uncomplicated; M19.012 Primary osteoarthritis, left shoulder; M47.816 Spondylosis without myelopathy or radiculopathy, lumbar region; M79.18 Myalgia, other site; M53.3 Sacrococcygeal disorders, not elsewhere classified; Z13.9 Encounter for screening, unspecified

== ENCOUNTER → 2025-02-14 12:44 | Outpatient (BNVA) | payer OTHER, SELFPAY | PROVIDERS: PCP Internal Medicine; Visit Provider Internal Medicine | DX: M19.012 Primary osteoarthritis, left shoulder (principal); G89.29 Other chronic pain; E10.3553 Type 1 diabetes mellitus with stable proliferative diabetic retinopathy, bilateral; M47.816 Spondylosis without myelopathy or radiculopathy, lumbar region; M79.18 Myalgia, other site; M53.3 Sacrococcygeal disorders, not elsewhere classified; M25.511 Pain in right shoulder; F11.20 Opioid dependence, uncomplicated | CPT/HCPCS: 83036; 99212 ==

== ENCOUNTER 2025-03-20 09:16 | Outpatient (REF) | payer OTHER, SELFPAY ==
--- OUTSIDE RECORDS SUMMARY | 2025-03-20 13:01 | XMS_ITS | Encounter Summary ---
Author Organization [facility] Address [address] [place] [address] Phone Care Team Providers Care Manufacturing Technician Name Role Phone Shawn Johnson MD Primary Care Provider Encounter Details Date Type Department Care Team (Late st Contact Info) Description 06/23/2023 Documentation Only [facility] [address] [place] [address] Emily Barnhart [address] [place] [address] Social History Tobacco Use Types [...] Visit [facility] [address] [place] [address] Torey Tom MD [address] [place] [address] [place] [address] documented as of this encounter Visit Diagnoses Not on filedocumented in this encounter Care Teams Manufacturing Technician Relationship Specialty Start Date End Date Shawn Johnson MD [address] [place], [place] [phone] PCP - General Internal Medicine 11/14/24 documented as of this encounter
--- OUTSIDE RECORDS SUMMARY | 2025-03-20 13:01 | XMS_ITS | Clinical Summary ---
Author Organization [facility] [place] [facility], Address [address] [place] [address] [place] [address] Phone Care Team Providers Care Instructional Materials Director Name Role Phone Shawn Johnson MD Primary [...] Visit [facility] [address] [place] [address] Torey Tom MD [address] [place] [address] Health Maintenance Due Date Last [...] PM EST) Hemoglobin A1C 8.2(H) (4.0-5.6) % [facility] Comment: MONITORING: In known diabetic patients, hemoglobin A1c targets should be discussed with health care provider. DIAGNOSTIC USE: The [place] [employer] (ADA) and the World Health [...] Supplement 1 Testing performed or reported by [facility] Reference [employer] a Service of [facility], [address] [place] [address] Aaliyah Pastrana MD, Software Developer Manager [facility]# [id number] Blood specimen (specimen) Venous blood / Unknown 04/10/2022 3:03 PM EST 04/10/2022 3:04 PM EST us Torey Tom MD LAB BLOOD ORDERABLES Final Re sult [facility] from Last 3 Months or Most Recently Relevant to Health Maintenance Insurance [place] [address] [employer] Care Teams Instructional Materials Director Relationship Specialty Start Date End Date Shawn Johnson MD [address] [place] [address] PCP - General Internal Medicine 11/14/24
--- OUTSIDE RECORDS SUMMARY | 2025-03-20 13:01 | XMS_ITS | Encounter Summary ---
Author Organization [facility] Address [address] [place] [address] Phone Care Team Providers Care Senior Energy Analyst Name Role Phone Shawn Johnson MD Primary Care Provider Encounter Details Date Type Department Care Team (Late st Contact Info) Description 11/02/2023 Documentation Only [facility] [address] [address] Emily Barnhart [address] [place] [address] Social History Tobacco Use Types [...] Visit [facility] [address] [address] Torey Tom MD [address] [place] [address] [place] [address] documented as of this encounter Visit Diagnoses Not on filedocumented in this encounter Care Teams Senior Energy Analyst Relationship Specialty Start Date End Date Shanw Johnson MD [address] [place], [place] [id number] PCP - General Internal Medicine 11/14/24 documented as of this encounter
--- OUTSIDE RECORDS SUMMARY | 2025-03-20 13:01 | XMS_ITS | Encounter Summary ---
Author Organization [facility], Address [address] [place] [address] Phone Care Team Providers Care Rubber Cutter Name Role Phone Shawn Johnson MD Primary Care Provider Encounter Details Date Type Department Care Team (Late st Contact Info) Description 03/24/2022 Documentation Only [facility] [address] [place] [address] Shawn Johnson MD [facility] [place] [address] Social History Tobacco Use Types Packs/Day Years [...] [facility] [address] [place] [address] Torey Tom MD [address] [place] [address] [place] [id number] documented as of this encounter Visit Diagnoses Not on filedocumented in this encounter Care Teams Rubber Cutter Relationship Specialty Start Date End Date Shawn Johnson MD [address] [place] [id number] PCP - General Internal Medicine 11/14/24 documented as of this encounter
--- OUTSIDE RECORDS SUMMARY | 2025-03-20 13:01 | XMS_ITS | Encounter Summary ---
Author Organization [facility] Address [address] [place] [address] Phone Care Team Providers Care Charging Crane Operator Name Role Phone Shawn Johnson MD Primary Care Provider Encounter Details Date Type Department Care Team (Late st Contact Info) Description 06/23/2023 Documentation Only [facility] [address] [place] [address] Emily Barnhart [address] [place] [address] Social History Tobacco Use Types [...] Visit [facility] [address] [place] [address] Torey Tom MD [address] [place] [address] [place] [address] documented as of this encounter Visit Diagnoses Not on filedocumented in this encounter Care Teams Charging Crane Operator Relationship Specialty Start Date End Date Shawn Johnson MD [address] [place], [place] [id number] PCP - General Internal Medicine 11/14/24 documented as of this encounter
--- OUTSIDE RECORDS SUMMARY | 2025-03-20 13:01 | XMS_ITS | Encounter Summary ---
Author Organization [facility] Address [address] [place] [address] Phone Care Team Providers Care Home Lending Officer Name Role Phone Shawn Johnson MD Primary Care Provider [phone] Encounter Details Date Type Department Care Team (Late st Contact Info) Description 11/02/2023 Documentation Only [facility] [address] [place] [address] Emily Barnhart [address] [place] [address] Social History Tobacco Use Types [...] Visit [facility] [address] [place] [address] Torey Tom MD [address] [place] [address] [place] [address] documented as of this encounter Visit Diagnoses Not on filedocumented in this encounter Care Teams Home Lending Officer Relationship Specialty Start Date End Date Shawn Johnson MD [address] [place], [place] [phone] PCP - General Internal Medicine 11/14/24 documented as of this encounter
--- OUTSIDE RECORDS SUMMARY | 2025-03-20 13:01 | XMS_ITS | Encounter Summary ---
Author Organization [facility] Address [address] [place] [address] Phone Care Team Providers Care Gum Machine Operator Name Role Phone Shawn Johnson MD Primary Care Provider Encounter Details Date Type Department Care Team (Late st Contact Info) Description 11/08/2024 Documentation Only [facility] [address] [place] [address] Emily Barnhart [address] [place] [address] Social History Tobacco Use Types [...] Visit [facility] [address] [place] [address] Torey Tom MD [address] [place] [address] [place] [address] documented as of this encounter Visit Diagnoses Not on filedocumented in this encounter Care Teams Gum Machine Operator Relationship Specialty Start Date End Date Shawn Johnson MD [address] [place], [place] [phone] PCP - General Internal Medicine 11/14/24 documented as of this encounter
--- OUTSIDE RECORDS SUMMARY | 2025-03-20 13:01 | XMS_ITS | Clinical Summary ---
Author Organization [address] [place] [address] Address [address] [place] [address] Phone Care Team Providers Care Creative Manager Name Role Phone Shawn Johnson MD Primary Care Provider [phone] Allergies No known active allergies Medications amLODIPine-carlota [...] PM EDT Office Visit Orthopedic Surgery - [address] [phone] Jose Lloyd DPM Controlled type 2 diabetes [...] Care Team (Late st Contact Info) Description 04/03/2025 3:15 PM EST Office Visit Orthopedic Surgery - [place] [address] [facility] [address] [place] [address] Jose Lloyd, TIFFANIE [address] [address] Health Maintenance Due Date Last Done Comments [...] mmol/L LAB CHEMISTRY METHOD 09/02/2024 2:11 AM [facility] Potassium 4.8 3.5 - 5.5 mmol/L LAB CHEMISTRY METHOD 09/02/2024 2:11 AM [facility] Comment:Hemolysis present Chloride 108 96 - 110 mmol/L LAB CHEMISTRY METHOD 09/02/2024 2:11 AM [facility] CO2 24 21 - 32 mmol/L LAB CHEMISTRY METHOD 09/02/2024 2:11 AM [facility] Anion [place] 6 3 - 11 LAB CHEMISTRY METHOD 09/02/2024 2:11 AM [facility] Glucose 178(H) 70 - 100 mg/dL LAB CHEMISTRY METHOD 09/02/2024 2:11 AM [facility] BUN 16 5 - 25 mg/dL LAB CHEMISTRY METHOD 09/02/2024 2:11 AM [facility] Creatinine 1.74(H) 0.70 - 1.30 mg/dL LAB CHEMISTRY METHOD 09/02/2024 2:11 AM [facility] eGFR 43(L) >=60 mL/min/1. 73m2 LAB CHEMISTRY METHOD 09/02/2024 2:11 AM [facility] Comment:Calculation based on the Chronic Kidney Disease Epidemiology Collaboration (CKD-EPI) equation refit without adjustment for race. BUN/Creatinine Ratio 9.2 LAB CHEMISTRY METHOD 09/02/2024 2:11 AM [facility] Calcium 8.0(L) 8.5 - 10.5 mg/dL LAB CHEMISTRY METHOD 09/02/2024 2:11 AM [facility] AST (SGOT) 39 10 - 42 unit/L LAB CHEMISTRY METHOD 09/02/2024 2:11 AM [facility] Comment:Hemolysis present ALT (SGPT) 25 10 - 60 unit/L LAB CHEMISTRY METHOD 09/02/2024 2:11 AM [facility] Alkaline Phosphatase 114 42 - 121 unit/L LAB CHEMISTRY METHOD 09/02/2024 2:11 AM [facility] Total Protein 6.3 6.0 - 8.0 g/dL LAB CHEMISTRY METHOD 09/02/2024 2:11 AM [facility] Albumin 3.0(L) 3.2 - 5.0 g/dL LAB CHEMISTRY METHOD 09/02/2024 2:11 AM [facility] Total Bilirubin 0.3 0.0 - 1.4 mg/dL LAB CHEMISTRY METHOD 09/02/2024 2:11 AM [facility] Blood Venous blood specimen / Unknown Venipuncture / Unknown 09/02/2024 1:31 AM EDT 09/02/2024 1:45 AM EDT us Teena Farah MD LAB BLOOD ORDERABLES Fin al Result [facility] [address] [place] [address], from Last 3 Months or Most Recently Relevant to Health Maintenance Insurance [facility] Care Teams Creative Manager Relationship Specialty Start Date End Date Shawn Johnson MD [address] [place] [address] PCP - General 12/23/23
--- OUTSIDE RECORDS SUMMARY | 2025-03-20 13:01 | XMS_ITS | Encounter Summary ---
Author Organization [facility] Address [address] [place] [address] Phone Care Team Providers Care Battery Parts Assembler Name Role Phone Shawn Johnson MD Primary Care Provider Encounter Details Date Type Department Care Team (Late st Contact Info) Description 05/11/2024 Documentation Only [facility] [address] [place] [address] Emily Barnhart [address] [place] [address] Social History Tobacco Use Types [...] Visit [facility] [address] [place] [address] Torey Tom MD [address] [place] [address] [place] [address] documented as of this encounter Visit Diagnoses Not on filedocumented in this encounter Care Teams Battery Parts Assembler Relationship Specialty Start Date End Date Shawn Johnson MD [address] [place], [place] [phone] PCP - General Internal Medicine 11/14/24 documented as of this encounter
--- OUTSIDE RECORDS SUMMARY | 2025-03-20 13:01 | XMS_ITS | Encounter Summary ---
Author Organization [facility] Address [address] [place] [address] Phone Care Team Providers Care Dairy Machine Operator Farmworker Name Role Phone Shawn Johnson MD Primary Care Provider [phone] Encounter Details Date Type Department Care Team (Late st Contact Info) Description 07/09/2023 Documentation Only [facility] [address] [place] [address] Emily Barnhart [address] [place] [address] Social History Tobacco Use Types [...] [facility] [address] [place] [address] Torey Tom MD [address] [place] [address] [place] [address] documented as of this encounter Visit Diagnoses Not on filedocumented in this encounter Care Teams Dairy Machine Operator Farmworker Relationship Specialty Start Date End Date Shawn Johnson MD [address] [place], [place] [phone] PCP - General Internal Medicine 11/14/24 documented as of this encounter
[2025-03-20 13:48] LABS: MANUAL DIFF FLAG NO
[2025-03-20 13:56] LABS: Hematocrit 40.6 % (42.0-52.0); Hemoglobin 13.2 g/dl (14.0-18.0); Imm Gran Abs Auto 0.02 X10*3/uL (0.00-0.03); Imm Gran Pct Auto 0.3 % (0.0-0.4); Lymphocytes Absolute Auto 2.7 X10*3/uL (1.2-4.9); Mean Corpuscular HGB Conc 32.5 g/dl (31.0-36.0); Mean Corpuscular Hemoglobin 29.7 pg (27.0-33.0); Mean Corpuscular Volume 91.4 fL (80.0-98.0); NRBC Abs Auto 0.000 X10*3/uL (0.0-0.012); NRBC Pct Auto 0.0 /100WBC (0.0-0.2); Platelet Count 286 X10*3/uL (160-400); Red Blood Count 4.44 X10*6/uL (4.60-5.80); White Blood Count 7.2 X10*3/uL (4.8-10.8)
[2025-03-20 14:55] LABS: Alanine Aminotransferase 22 U/L (0-40); Albumin Level 4.1 g/dL (3.5-5.0); Alkaline Phosphatase 102 U/L (39-117); Anion Gap 10 (12-20); Aspartate Amino Transferase 36 U/L (5-37); Blood Urea Nitrogen 17 mg/dL (9-16); Calcium 8.9 mg/dL (8.4-10.2); Carbon Dioxide 21 mmol/L (22-29); Chloride 112 mmol/L (96-108); Estimated Glomerular Filt Rate 48; Potassium 4.3 mmol/L (3.3-5.1); Sodium 139 mmol/L (135-145); Total Protein 6.9 g/dL (6.5-8.0)
[2025-03-20 15:02] LABS: Cannabinoid Screen Urine Not Detected (Not Detect)
[2025-03-26 10:56] LABS: Hydrocodone, Ur NEGATIVE; Hydromorphone, Ur NEGATIVE; Morphine, Ur NEGATIVE; Norhydrocodone, Ur NEGATIVE; Noroxycodone, Ur NEGATIVE; Opiates GC/MS Note NEGATIVE; Oxycodone GC/MS Note NEGATIVE; Oxycodone, Ur NEGATIVE; Oxymorphone, Ur NEGATIVE
[2025-03-26 10:58] LABS: Codeine, Ur NEGATIVE
== END 2025-03-20 09:17 | disposition home or self-care (01) ==
LOC: HO.HMGCLDS 09:16
PROVIDERS: PCP Internal Medicine; Visit Provider Internal Medicine
DX: Z02.89 Encounter for other administrative examinations (principal); E10.42 Type 1 diabetes mellitus with diabetic polyneuropathy; F11.20 Opioid dependence, uncomplicated; G89.29 Other chronic pain; E03.9 Hypothyroidism, unspecified; I10 Essential (primary) hypertension; K21.9 Gastro-esophageal reflux disease without esophagitis; E78.5 Hyperlipidemia, unspecified; E10.3553 Type 1 diabetes mellitus with stable proliferative diabetic retinopathy, bilateral; N52.9 Male erectile dysfunction, unspecified; E66.01 Morbid (severe) obesity due to excess calories; E10.21 Type 1 diabetes mellitus with diabetic nephropathy; N40.1 Benign prostatic hyperplasia with lower urinary tract symptoms; R35.0 Frequency of micturition; M53.3 Sacrococcygeal disorders, not elsewhere classified; M25.511 Pain in right shoulder; M25.512 Pain in left shoulder; M79.18 Myalgia, other site; M54.16 Radiculopathy, lumbar region; M19.012 Primary osteoarthritis, left shoulder; M47.816 Spondylosis without myelopathy or radiculopathy, lumbar region; Z79.899 Other long term (current) drug therapy; Z68.38 Body mass index [BMI] 38.0-38.9, adult
CPT/HCPCS: 80053; 80307; 80365; 83036; 83721; 84443; 85025; 99212; G0480

== ENCOUNTER 2025-03-20 09:16 | Outpatient (AMB) | payer OTHER, SELFPAY ==
[2025-03-20 09:29] VITALS: BP 124/80; PULSE 92; O2SAT 96; BMI 38.6
--- NOTE | 2025-03-20 09:29 | A.OFFPC_ITS ---
Vital Signs 03/20/25 09:29 Height 5 ft 7 in Weight 246 lb 6 oz BMI 38.6 BP 124/80 Blood Pressure Location Lt brachial Position Sitting Pulse 92 Pulse Source Pulse Oximeter Pulse Oximetry (%) 96 Oxygen Delivery Method Room Air Intake Visit Reasons: 1 month follow up Allergies No Known Allergies Allergy (Verified 03/20/25 09:33) Medication List - Last Reconciled 03/20/25 by Shawn Johnson MD amlodipine-benazepril 10-20 mg 1 cap PO DAILY aspirin (Adult Low Dose Aspirin) 81 mg PO DAILY atorvastatin 10 mg PO BEDTIME blood sugar diagnostic (FreeStyle Lite Strips) USE TO CHECK BLOOD SUGAR 3 TIMES DAILY: FASTING AND BEFORE MEALS cholecalciferol (vitamin D3) 25 mcg PO DAILY 90 days dorzolamide-timolol 22.3-6.8 mg/mL 1 drp ophthalmic (eye) BID dulaglutide (Trulicity) 4.5 mg (0.5 mL) subcut QWEEK 90 days flash glucose sensor (FreeStyle Ye 2 Sensor kit) Use with sensor to monitor blood sugar TID and as needed for s/s hypo/hyperglycemia fluticasone propionate 50 mcg/actuation (Allergy Relief (fluticasone)) 1 spray intranasal DAILY 30 days FreeStyle Ye 2 [place] (flash glucose scanning reader) Use with sensor to monitor blood sugar TID and as needed for s/s hypo/hyperglycemia NS FreeStyle Lite Meter (blood-glucose meter) Use to check blood sugar 4 times ba y, fasting and AC NS insulin aspart U-100 (Novolog FlexPen U-100 Insulin aspart) 15 units (0.15 mL) subcut TID 90 days [insulin pen needles 4 times a day] lamotrigine 100 mg PO BID lancets (FreeStyle Lancets) Use to check blood sugar QID, fasting and AC Lantus Solostar U-100 Insulin (insulin glargine) subcutaneously 2 times a day; 50 units at night and 20 units in the morning 90 days NS levothyroxine 50 mcg PO DAILY lidocaine 5% (Lidoderm) 1 patch topical DAILY PRN MDD remove after 12 hours metoclopramide HCl (Reglan) 10 mg PO Q6H 7 days oxycodone-acetaminophen 5-325 mg (Percocet) 1 tab PO Q8H PRN 30 days pantoprazole 20 mg PO DAILY pen needle, diabetic (Ultra-Fine Pen Needle) qid Tobacco use date assessed: 03/20/25 Fall risk assessment: No Falls in past year Last assessed Fall Risk: 03/20/25 Dental Screening Dental Screen Date: 03/20/25 Did you have a dental visit in the last 12 months?: Yes Did you have a dental problem in the last 6 months where you did not have access to dental care?: No Was dental information given to patient?: Patient has dentist HPI HPI Comments History of Present Illness Details History of Present Illness The patient is a 64 year old male presenting for management of multiple chronic conditions and medication refills. Chronic Pain and Opioid Dependence: - The patient suffers from chronic multi ple joint pain and lumbar pain. - He is dependent on narcotic pain medic ation and is currently taking oxycodone- acetaminophen 5-325 mg, 1 tablet 3 times a day. - He reports experiencing significant pa in when the medication wears off. - He is due for a urine drug screening. Type 2 Diabetes Mellitus: - His diabetes is managed with Lantus in sulin, taking 50 units at night and 20 units in the morning. - He has comorbid diabetic nephropathy a nd diabetic neuropathy. - He is due for a hemoglobin A1c test, a s his last blood work was five months ago. - His BMI is elevated at 38.6. Hypothyroidism: - He has a history of hypothyroidism man aged with levothyroxine 50 mcg daily. - A thyroid test is pending. Hypertension: - His blood pressure is stable at 124/80 mmHg on amlodipine-benazepril. - He is followed by a loft worker apprentice for d iabetic nephropathy, who should ideally manage his antihypertensive medications. Other Conditions: - GERD is stable with pantoprazole 20 mg . - Hyperlipidemia is managed with atorvas tatin 10 mg and he also takes a vitamin D supplement. - He requests medication for erectile dy sfunction, noting he sees a urologist for BPH, Medical History: - Chronic pain syndrome (multiple joint pain, chronic lumbar pain) - Opioid dependence - Hypothyroidism - Type 2 diabetes mellitus with complica tions of nephropathy and neuropathy - Gastroesophageal reflux disease (GERD) - Hyperlipidemia - Hypertension - Obesity (BMI 38.6) - Erectile dysfunction Medications: - Oxycodone-acetaminophen 5-325 mg, 1 ta blet 3 times a day for chronic pain. - Levothyroxine 50 mcg for hypothyroidis m. - Lantus insulin 50 units at night and 2 0 units in the morning for diabetes. - Pantoprazole 20 mg for GERD. - Vitamin D supplement. - Atorvastatin 10 mg for hyperlipidemia. - Amlodipine-benazepril for hypertension . Social History: - BMI: 38.6, indicating obesity. - Housing: He lives in [place]. - Transportation: He does not drive and relies on rides. - Family status: He mentioned having a g irlfriend Diagnostic Results: - Blood pressure: 124/80 mmHg. - BMI: 38.6. - Labs: No blood tests have been perform ed in the last five months. [facility] Medical History Hypothyroid Glaucoma Chronic SI joint pain Lumbar radiculopathy Neuropathy BPH (benign prostatic hyperplasia) Elevated cholesterol GERD (gastroesophageal reflux disease) CKD (chronic kidney disease) Diabetes HTN (hypertension) Surgical History Hx of cataract surgery History of surgery on lower extremity History of shoulder surgery Family History Father Diabetes Hypertension Cancer Mother Hypertension Diabetes Social History Housing: House Patient Tobacco Use Status: Never used Tobacco e-Cigarette/Vaping Use: Never Used service: No Current occupational status: disabled Cognitive needs: No Hearing needs: No Vision needs: Yes Questionnaire Thrive Questionnaire Date Thrive assessed: 07/07/24 AUDIT C Alcohol Use Questionnaire (AUDIT-C) 1. How often do you have a drink containing alcohol?: 2-4 times a month 2. How many drinks containing alcohol do you have on a typical day when you are drinking?: 1 or 2 3. How often do you have six or more drinks on one occasion?: Never Total Score: 2 Score Reviewed/Action Taken: Yes AMINATA-7 AMB Questionnaire AMINATA-7 Date AMINATA - 7 assessed: 10/13/24 Source: Developed by Drs. Josiah Bailey, Gema Zimmerman, Brian Jo and colleagues, with an educational lovely from [employer]. Review of Systems Narrative Review of Systems . - General: No fever no chills - Neurological: No headaches no dizziness - Ear nose throat: No sore throat no hearing difficulty no ear pain - Cardiovascular: No syncope, no chest pain, no palpitations - Gastrointestinal: No nausea vomiting or diarrhea - Endocrine: No polyuria polydipsia no heat intolerance - Genitourinary: No dysuria , no blood in urine Physical exam (Primary Care) Vital Signs: Last Vital Signs Pulse 92 03/20/25 09:29 BP 124/80 03/20/25 09:29 Pulse Ox 96 03/20/25 09:29 Oxygen Delivery Method Room Air 03/20/25 09:29 BMI result Body Mass Index 38.6 Tobacco/Smoking Status: Tobacco use Status Tobacco use date assessed 03/20/25 03/20/25 09:35 Patient Tobacco Use Status Never used Tobacco 03/20/25 09:34 e-Cigarette/Vaping Use Never Used 03/20/25 09:34 Thrive Assessment: Date of Thrive Assessment Date Thrive assessed 07/07/24 03/20/25 09:34 Narrative Physical Exam General: No acute distress HEENT: No acute findings Neck: Supple Respiratory system: Able to talk in full sentences, no audible wheeze Cardiovascular: S1-S2 regular in rate and rhythm Gastrointestinal: No pain Extremities: Multiple joint pain, chronic lumbar pain DEATH CLEARANCE COORDINATOR: Alert awake oriented x3 motor intact Skin: Normal turgor Coding Level of Care Code Est Pt Level 5 (55670) Diagnoses Hypertension, essential I10 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 E10.3553 Diabetes mellitus complication detail: with diabetic retinopathy Diabetes mellitus complication status: with ophthalmic complications Diabetic retinopathy severity: with proliferative retinopathy Laterality: bilateral Proliferative retinopathy type: stable Erectile disorder N52.9 Class 2 severe obesity due to excess calories with serious comorbidity and body mass index (BMI) of 38.0 to 38.9 in adult E66.01; Z68.38 Body mass index: BMI 38.0-38.9 Obesity classification: adult class 2 (BMI 35 - 39.9) Serious obesity comorbidity presence: with serious comorbidity Chronic GERD K21.9 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 E10.21 Diabetes mellitus type: type 1 Benign prostatic hyperplasia with urinary frequency N40.1; R35.0 Lower urinary tract symptom detail: urinary frequency Lower urinary tract symptom presence: symptoms present Sacroiliac joint dysfunction of left side M53.3 Chronic pain of both shoulders M25.511; M25.512; G89.29 Chronicity: chronic Myofascial pain syndrome M79.18 Lumbar radiculopathy M54.16 Diabetic polyneuropathy associated with type 1 diabetes mellitus E10.42 Diabetes mellitus complication detail: diabetic polyneuropathy Diabetes mellitus type: type 1 Narcotic dependence F11.20 Pain management contract agreement Z02.89 Primary osteoarthritis, left shoulder M19.012 Lumbar spondylosis M47.816 Time Spent (min) 40 Comment time spent in care of this patient Assessment & Plan Assessment & Plan (1) Hypertension, essential: Code(s): I10 - Essential (primary) hypertension Category: Medical (2) Insulin dependent type 1 diabetes mellitus: Code(s): E10.9 - Type 1 diabetes mellitus without complications Category: Medical Qualifiers: Diabetes mellitus complication detail: with diabetic retinopathy Diabetes mellitus complication status: with ophthalmic complications Diabetic retinopathy severity: with proliferative retinopathy Laterality: bilateral Proliferative retinopathy type: stable Qualified Code(s): E10.3553 - Type 1 diabetes mellitus with stable proliferative diabetic retinopathy, bilateral (3) Erectile disorder: Code(s): N52.9 - Male erectile dysfunction, unspecified Category: Medical (4) Obesity due to excess calories: Code(s): E66.09 - Other obesity due to excess calories Category: Medical Qualifiers: Body mass index: BMI 38.0-38.9 Obesity classification: adult class 2 (BMI 35 - 39.9) Serious obesity comorbidity presence: with serious comorbidity Qualified Code(s): E66.01 - Morbid (severe) obesity due to excess calories; Z68.38 - Body mass index [BMI] 38.0-38.9, adult (5) Chronic GERD: Comment: Dietary modifications, opportunity for improvement Code(s): K21.9 - Gastro-esophageal reflux disease without esophagitis Category: Medical (6) Diabetic nephropathy: Code(s): E11.21 - Type 2 diabetes mellitus with diabetic nephropathy Category: Medical Qualifiers: Diabetes mellitus type: type 1 Qualified Code(s): E10.21 - Type 1 diabetes mellitus with diabetic nephropathy (7) BPH (benign prostatic hyperplasia): Code(s): N40.0 - Benign prostatic hyperplasia without lower urinary tract symptoms Category: Medical Qualifiers: Lower urinary tract symptom detail: urinary frequency Lower urinary tract symptom presence: symptoms present Qualified Code(s): N40.1 - Benign prostatic hyperplasia with lower urinary tract symptoms; R35.0 - Frequency of micturition (8) Sacroiliac joint dysfunction of left side: Code(s): M53.3 - Sacrococcygeal disorders, not elsewhere classified Category: Medical (9) Bilateral shoulder pain: Code(s): M25.511 - Pain in right shoulder; M25.512 - Pain in left shoulder Category: Medical Qualifiers: Chronicity: chronic Qualified Code(s): M25.511 - Pain in right shoulder; M25.512 - Pain in left shoulder; G89.29 - Other chronic pain (10) Myofascial pain syndrome: Code(s): M79.18 - Myalgia, other site Category: Medical (11) Lumbar radiculopathy: Code(s): M54.16 - Radiculopathy, lumbar region Category: Medical (12) Diabetic neuropathy: Code(s): E11.40 - Type 2 diabetes mellitus with diabetic neuropathy, unspecified Category: Medical Qualifiers: Diabetes mellitus complication detail: diabetic polyneuropathy Diabetes mellitus type: type 1 Qualified Code(s): E10.42 - Type 1 diabetes mellitus with diabetic polyneuropathy (13) Narcotic dependence: Code(s): F11.20 - Opioid dependence, uncomplicated Category: Medical (14) Pain management contract agreement: Code(s): Z02.89 - Encounter for other administrative examinations Category: Medical (15) Primary osteoarthritis, left shoulder: Code(s): M19.012 - Primary osteoarthritis, left shoulder Category: Medical (16) Lumbar spondylosis: Code(s): M47.816 - Spondylosis without myelopathy or radiculopathy, lumbar region Category: Medical Plan Problem List - Chronic pain syndrome - Opioid dependence - Hypothyroidism - Type 2 diabetes mellitus - Gastroesophageal reflux disease (GERD) - Hyperlipidemia - Hypertension - Diabetic nephropathy - Diabetic neuropathy - Obesity - Erectile dysfunction - Preventative care: Urine drug screening - Preventative care: Hemoglobin A1c and thyroid function tests Plan - Order blood tests including hemoglobin A1c and thyroid function tests, to be done today. - Conduct a urine drug screening. - Send a prescription for oxycodone-acetaminophen for chronic pain management. - Refer the patient to a loft worker apprentice in [place] to manage his diabetic nephropathy and hypertension. - Advised the patient to call his urologist for management of erectile dysfunction, as these medications are not prescribed in this clinic. - The patient needs to book a follow-up appointment in one month. Orders: Orders Opiates GCMS Expanded, Ur Today F11.20 - Opioid dependence, uncomplicated, M54.16 - Radiculopathy, lumbar region, Z02.89 - Encounter for other administrative examinations Drug Screen Urine Today F11.20 - Opioid dependence, uncomplicated, M54.16 - Radiculopathy, lumbar region, Z02.89 - Encounter for other administrative examinations Hemoglobin A1c Today E10.21 - Type 1 diabetes mellitus with diabetic nephropathy, E10.3553 - Type 1 diabetes mellitus with stable proliferative diabetic retinopathy, bilateral, E10.42 - Type 1 diabetes mellitus with diabetic polyneuropathy, E66.01 - Morbid (severe) obesity due to excess calories, F11.20 - Opioid dependence, uncomplicated, G89.29 - Other chronic pain, I10 - Essential (primary) hypertension, K21.9 - Gastro-esophageal reflux disease without esophagitis, M25.511 - Pain in right shoulder, M25.512 - Pain in left shoulder, M53.3 - Sacrococcygeal disorders, not elsewhere classified, M54.16 - Radiculopathy, lumbar region, M79.18 - Myalgia, other site, N40.1 - Benign prostatic hyperplasia with lower urinary tract symptoms, R35.0 - Frequency of micturition, Z68.38 - Body mass index [BMI] 38.0-38.9, adult Complete Blood Count Auto Diff Today E10.21 - Type 1 diabetes mellitus with diabetic nephropathy, E10.3553 - Type 1 diabetes mellitus with stable proliferative diabetic retinopathy, bilateral, E10.42 - Type 1 diabetes mellitus with diabetic polyneuropathy, E66.01 - Morbid (severe) obesity due to excess calories, F11.20 - Opioid dependence, uncomplicated, G89.29 - Other chronic pain, I10 - Essential (primary) hypertension, K21.9 - Gastro-esophageal reflux d isease without esophagitis, M25.511 - Pain in right shoulder, M25.512 - Pain in left shoulder, M53.3 - Sacrococcygeal disorders, not elsewhere classified, M54.16 - Radiculopathy, lumbar region, M79.18 - Myalgia, other site, N40.1 - Benign prostatic hyperplasia with lower urinary tract symptoms, R35.0 - Frequency of micturition, Z68.38 - Body mass index [BMI] 38.0-38.9, adult Comprehensive Met. Panel Today E10.21 - Type 1 diabetes mellitus with diabetic nephropathy, E10.3553 - Type 1 diabetes mellitus with stable proliferative diabetic retinopathy, bilateral, E10.42 - Type 1 diabetes mellitus with diabetic polyneuropathy, E66.01 - Morbid (severe) obesity due to excess calories, F11.20 - Opioid dependence, uncomplicated, G89.29 - Other chronic pain, I10 - Essential (primary) hypertension, K21.9 - Gastro-esophageal reflux disease without esophagitis, M25.511 - Pain in right shoulder, M25.512 - Pain in left shoulder, M53.3 - Sacrococcygeal disorders, not elsewhere classified, M54.16 - Radiculopathy, lumbar region, M79.18 - Myalgia, other site, N40.1 - Benign prostatic hyperplasia with lower urinary tract symptoms, R35.0 - Frequency of micturition, Z68.38 - Body mass index [BMI] 38.0-38.9, adult LDL Cholesterol Direct Today E10.21 - Type 1 diabetes mellitus with diabetic nephropathy, E10.3553 - Type 1 diabetes mellitus with stable proliferative diabetic retinopathy, bilateral, E10.42 - Type 1 diabetes mellitus with diabetic polyneuropathy, E66.01 - Morbid (severe) obesity due to excess calories, F11.20 - Opioid dependence, uncomplicated, G89.29 - Other chronic pain, I10 - Essential (primary) hypertension, K21.9 - Gastro-esophageal reflux disease without esophagitis, M25.511 - Pain in right shoulder, M25.512 - Pain in left shoulder, M53.3 - Sacrococcygeal disorders, not elsewhere classified, M54.16 - Radiculopathy, lumbar region, M79.18 - Myalgia, other site, N40.1 - Benign prostatic hyperplasia with lower urinary tract symptoms, R35.0 - Frequency of micturition, Z68.38 - Body mass index [BMI] 38.0-38.9, adult TSH reflex Free T4 Today E10.21 - Type 1 diabetes mellitus with diabetic nephro leonie, E10.3553 - Type 1 diabetes mellitus with stable proliferative diabetic retinopathy, bilateral, E10.42 - Type 1 diabetes mellitus with diabetic polyneuropathy, E66.01 - Morbid (severe) obesity due to excess calories, F11.20 - Opioid dependence, uncomplicated, G89.29 - Other chronic pain, I10 - Essential (primary) hypertension, K21.9 - Gastro-esophageal reflux disease without esophagitis, M25.511 - Pain in right shoulder, M25.512 - Pain in left shoulder, M53.3 - Sacrococcygeal disorders, not elsewhere classified, M54.16 - Radiculopathy, lumbar region, M79.18 - Myalgia, other site, N40.1 - Benign prostatic hyperplasia with lower urinary tract symptoms, R35.0 - Frequency of micturition, Z68.38 - Body mass index [BMI] 38.0-38.9, adult Referrals Nephrology Referral E10.21 - Type 1 diabetes mellitus with diabetic nephropathy, I10 - Essential (primary) hypertension Medications: Refilled oxycodone-acetaminophen 5-325 mg (Percocet) Partial Fill upon patient request. 1 tab PO Q8H PRN 90 tabs 0RF pain 30 days M13.0 - Polyarthritis, unspecified, M25.511 - Pain in right shoulder, M47.816 - Spondylosis without myelopathy or radiculopathy, lumbar region
== END 2025-03-20 09:53 | disposition home or self-care (01) ==
PROVIDERS: PCP Internal Medicine; Visit Provider Internal Medicine
DX: E10.3553 Type 1 diabetes mellitus with stable proliferative diabetic retinopathy, bilateral (principal); I10 Essential (primary) hypertension; N52.9 Male erectile dysfunction, unspecified; E66.01 Morbid (severe) obesity due to excess calories; Z68.38 Body mass index [BMI] 38.0-38.9, adult; E10.42 Type 1 diabetes mellitus with diabetic polyneuropathy; E10.21 Type 1 diabetes mellitus with diabetic nephropathy; N40.1 Benign prostatic hyperplasia with lower urinary tract symptoms; R35.0 Frequency of micturition